=== PATIENT | male | born 1965 | race Caucasian/White ===

== ENCOUNTER 2020-04-19 09:43 | Day surgery (SDC) | payer OTHER, SELFPAY ==
[2020-04-02 15:32] VITALS: BMI 29.7
--- NOTE | 2020-04-03 08:26 | HP_ITS ---
Intake Vital Signs 04/02/20 Height 5 ft 7 in 04/02/20 Weight: 190 lb 04/02/20 BMI 29.7 04/02/20 BP 144/88 H 04/02/20 Blood Pressure Location Rt brachial 04/02/20 Position Sitting 04/02/20 Respiration 18 Intake Visit Reasons: HEMORRHOIDS, RECTAL BLEEDING Chief Complaint: hemorrhoids and bleeding Slot Floorman Required: No Is patient in pain?: Yes Allergies No Known Allergies Allergy (Unverified 04/02/20 15:32) Medications ascorbic acid (vitamin C) 500 mg capsule mg PO 04/02/20 [History Confirmed 04/02/20] aspirin 81 mg tablet,delayed release 81 mg PO DAILY 04/02/20 [History Confirmed 04/02/20] atenolol 50 mg tablet 50 mg PO DAILY 04/02/20 [History Confirmed 04/02/20] atorvastatin 10 mg tablet 10 mg PO DAILY 04/02/20 [History Confirmed 04/02/20] bupropion HCl 150 mg tablet,12 hr sustained-release 150 mg PO DAILY 04/02/20 [History Confirmed 04/02/20] cholecalciferol (vitamin D3) 125 mcg (5,000 unit) capsule 125 mcg PO DAILY 04/02/20 [History Confirmed 04/02/20] diphenoxylate-atropine 2.5 mg-0.025 mg tablet 1 tab PO DAILY 04/02/20 [History Confirmed 04/02/20] fluticasone propionate 50 mcg/actuation blister powder for inhalation 1 inh INHALATION BID 04/02/20 [History Confirmed 04/02/20] folic acid 1 mg tablet 1 mg PO DAILY 04/02/20 [History Confirmed 04/02/20] harrison root 325 mg-pyridoxine HCl (vitamin B6) 25 mg capsule cap PO 04/02/20 [History Confirmed 04/02/20] loratadine 10 mg capsule 10 mg PO DAILY 04/02/20 [History Confirmed 04/02/20] mecobalamin (vitamin B12) 1,000 mcg chewable tablet 1,000 mcg PO DAILY 04/02/20 [History Confirmed 04/02/20] metformin 1,000 mg tablet 1,000 mg PO BID 04/02/20 [History Confirmed 04/02/20] hlwupsmb-peb-xwwxq acid 300 mcg-lycopene 600 mcg-lutein 300 mcg tablet 1 tab PO DAILY 04/02/20 [History Confirmed 04/02/20] nitroglycerin 0.4 mg sublingual tablet 0.4 mg SUBLINGUAL Q5M PRN 04/02/20 [History Confirmed 04/02/20] omeprazole 40 mg capsule,delayed release 40 mg PO DAILY 04/02/20 [History Confirmed 04/02/20] quetiapine 100 mg tablet 100 mg PO DAILY 04/02/20 [History Confirmed 04/02/20] thiamine HCl (vitamin B1) 250 mg tablet 250 mg PO DAILY 04/02/20 [History Confirmed 04/02/20] trazodone 50 mg tablet 50 mg PO DAILY 04/02/20 [History Confirmed 04/02/20] [facility] Medical History Alcohol abuse (Acute) Anemia (Acute) Anxiety (Acute) Eastman's palsy (Acute) CAD (coronary artery disease) (Acute) Depression (Acute) Diabetes (Acute) Elevated liver enzymes (Acute) Heart attack (Acute) Hemorrhoids (Acute) Herpes zoster (Acute) Hypercholesterolemia with hyperglyceridemia (Acute) Insomnia (Acute) ANYA (obstructive sleep apnea) (Acute) Pancreatic cyst (Acute) Pancreatitis (Acute) Right ankle pain (Acute) Surgical History H/O right knee surgery (Acute) History of back surgery (Acute) Pancreatic cyst (Acute) S/P laparoscopic cholecystectomy (Acute) Status post left hip replacement (Acute) right ankle surgery (Acute) Social History (Updated 04/03/20 @ 08:[address] Jay Gr MD) Smoking Status: Never smoker Smokeless tobacco user: chewing tobacco alcohol intake: current HPI HPI HPI: AGA ADAN, is a 54 M who presents to the office today for HPI HPI Surgical H&P: Yes HPI: AGA ADAN, is a 54 M who presents to the office today for Bleeding hemorrhoids. The patient reports that he has been having bleeding hemorrhoids. Patient reports he has had a lot of bright red blood per rectum with no pain. Patient had a colonoscopy In 2016 at [place] in which a small polyp was noted. ROS General General: Yes fatigue; no weight change Musc Musculoskeletal: Yes back problems and arthritis Cardio Cardiovascular: Yes high blood pressure and heart attack; no murmur, pacemaker, heart disease, atrial fibrillation, heart stent, palpitations, shortness of breat with exertion or chest pain Psych Psychiatric: Yes depression and anxiety Resp Respiratory: No shortness of breath, No sleep apnea, No cough, No COPD, No asthma, No emphysema, No wheezing Gastro Gastrointestinal: Yes abdominal pain, No nausea or vomiting, No diarrhea, No constipation, Yes blood in stool, Yes acid reflux, Yes hemorrhoids, No ulcers, No gallbladder problem, No black,tarry stools Derick Hematologic: No blood thinners, Yes bleeding, Yes anemia Exam Const General: cooperative Orientation: alert, oriented x3 Resp Effort & Inspection: normal respiratory effort Auscultation: clear to auscultation bilaterally Cardio Rate: regular rate Rhythm: regular rhythm Heart Sounds: no murmurs GI Inspection: non-distended Palpation: soft, nontender Rectal Exam: hemorrhoids Assessment & Plan Problems 1. Grade III hemorrhoids K64.2 Plan The patient has internal and external hemorrhoids. The patient reports he is having soft bowel movements at least daily. These have not gone away with dietary changes. I recommend hemorrhoidectomy to stop the bleeding. He is having bright red blood per stool and he had a recent colonoscopy. I discussed hemorrhoidectomy in detail the patient as well as pain control and risks of the procedure. I discussed the risks of bleeding, infection, urinary retention, fecal incontinence. The patient understands the risks and is when to proceed. We discussed the current risks associated with COVID-19. While it is understood that there is a community spread of COVID-19, the risk of davis COVID-19 while at [facility] ([facility]) is very low; however, the risk cannot be completely mitigated because of the community spread of the disease. We discussed in detail the risk of exposure to and/or potential harm posed by the COVID-19 virus with having a surgery/procedure at this time versus the risk of delaying the surgery/procedure. It is not possible to know either the risk of delaying the surgery or procedure or chance of getting an infection with perfect accuracy, but a joint decision was made to proceed at this time with the scheduled surgery/procedure as indicated on the consent form. Patient was notified that we will need to comply with any screening or testing [facility] wishes to perform or that surgery may be delayed for any positive results. Jay Gr MD Pager: [facility] [address] [place] [address], [address] [place] [address] Office: Coding Level of Care Code Off vis,new,level 3 Diagnoses Grade III hemorrhoids K64.2 ??Hemorrhoid type: third degree 04/03/20 0826 <Electronically signed by Jay cortez MD> Date _ Jay Gr MD I have re-examined the patient. There are no clinical changes since date of exam.
[2020-04-08 14:00] VITALS: BMI 30.6
[2020-04-19] VITALS (11 sets, daily range): BP systolic 116–152; BP diastolic 55–92; PULSE 73–89; RESP 16–18; TEMP 36.4–36.8; O2SAT 95–100; BMI 30.1
[2020-04-19] MEDS: Lactated Ringers 1,000 ML 100 ML IV (10:34)
[2020-04-19 10:35] LABS: Bedside Glucose 126 mg/dL (70-110)
[2020-04-19] MEDS: Cefotetan 2 GM in 0.9% NS 100 ML IV (11:02)
[2020-04-19] MEDS: Bupivacaine Mpf 0.5% 30 ML VIAL (11:23)
[2020-04-19] MEDS: Lubricating Jelly 60 GM Tube 30 GM TOPICAL (11:24)
--- NOTE | 2020-04-19 11:30 | HEM_PTH ---
PATIENT: AGA ADAN LOC: [facility] [place] U#:[id number] AGE/SX: 54/M ROOM: RE04/19/[address]: Dr. Jay Gr MD : 1965 BED: DIS: 04/19/2020 SPEC #: [id number] RECD: 04/19/20 12:52 STATUS: THO MARIANGEL #: [id number] CASSIE: 04/19/20 11:[address]: Jay Gr DEPT: SURGICAL PATHOLOGY RECD BY: Gilberto Eason ENTERED: 04/19/20 13:08 SP TYPE: HEMORRHOID OTHR DR: Dr. Amanda Tena, Tissues: HEMORRHOIDS Procedures: Surgery Specimen Level III HEADER OPERATION: Hemorrhoidectomy PRE-OP DIAGNOSIS: Grade III hemorrhoids TISSUE SUBMITTED: Right column hemorrhoid MICROSCOPIC DIAGNOSIS Right column hemorrhoid, hemorrhoidectomy: Submucosal vascular ectasia and thrombosis consistent with hemorrhoid. AM:alem 04/22/20 MICROSCOPIC DESCRIPTION Slides are reviewed. GROSS DESCRIPTION Received in fixative is one container labeled with the patient's name and designated right column hemorrhoid. The specimen consists of a piece of hurd-pink mucosal tissue measuring 3 x 1 x 0.5 cm. Sections reveal congested cut surfaces. The entire specimen is submitted in one cassette. / SJ:alem 04/19/20 TC:5 [facility]: [id number]
[2020-04-19] MEDS: Dibucaine 30 GM Tube 1 APPLIC (11:39)
--- NOTE | 2020-04-19 12:15 | DCINST_ITS ---
Discharge Diet: No Restrictions Discharge Activity: Return to Normal Activity, May Not Drive - while you are taking narcotic pain medications. Do not drive, work with heavy equipment or sign legal documents for 24 hours after your surgery. Additional Activity Instructions:: Be aware that pain medications may cause nausea. You should typically eat light foods as you take your pain medications. Pain medications may also cause constipation, if you have difficulty with this please discuss with your doctor. Call your doctor if your incision/area has: Continuous Slow Oozing, Sudden Increased Bleeding, Increased Pain/ Swelling, Increased Redness, Foul Smelling Discharge, Swelling at the incision site Call your doctor if you observe: Fever of 101 or Higher Additional Dressing/Incision Instructions:: Leave the operative bandage on for 2 days. If a local anesthetic plug was placed in the anal area, try not to expel for 24-[address] dibucaine ointment on the perianal area as needed. Sitz baths twice daily and after bowel movements. Allergies/Adverse Reactions: Allergies No Known Allergies Allergy (Verified 04/17/20 10:52) Medications to take at Discharge ascorbic acid (vitamin C) 500 mg capsule 500 mg PO DAILY 04/02/20 aspirin 81 mg tablet,delayed release 81 mg PO DAILY 04/02/20 atenolol 50 mg tablet 50 mg PO DAILY 04/02/20 atorvastatin 10 mg tablet 10 mg PO DAILY 04/02/20 bupropion HCl 150 mg tablet,12 hr sustained-release 150 mg PO DAILY 04/02/20 cholecalciferol (vitamin D3) 125 mcg (5,000 unit) capsule 125 mcg PO BID 04/02/20 diphenoxylate-atropine 2.5 mg-0.025 mg tablet 1 tab PO PRN PRN 04/02/20 fluticasone propionate 50 mcg/actuation blister powder for inhalation 1 inh INHALATION BID PRN 04/02/20 folic acid 1 mg tablet 1 mg PO DAILY 04/02/20 harrison root 325 mg-pyridoxine HCl (vitamin B6) 25 mg capsule 3 cap PO DAILY 04/02/20 loratadine 10 mg capsule 10 mg PO DAILY 04/02/20 mecobalamin (vitamin B12) 1,000 mcg chewable tablet 4,000 mcg PO DAILY 04/02/20 metformin 1,000 mg tablet 1,000 mg PO BID 04/02/20 ldkzmolw-xpo-nqorq acid 300 mcg-lycopene 600 mcg-lutein 300 mcg tablet 1 tab PO DAILY 04/02/20 nitroglycerin 0.4 mg sublingual tablet 0.4 mg SUBLINGUAL Q5M PRN 04/02/20 omeprazole 40 mg capsule,delayed release 40 mg PO QHS 04/02/20 quetiapine 100 mg tablet 100 mg PO QHS 04/02/20 thiamine HCl (vitamin B1) 250 mg tablet 250 mg PO DAILY 04/02/20 Docusate Sodium [Colace] 100 mg PO BID 15 Days #30 cap 04/19/20 Docusate Sodium [Colace] 100 mg PO BID 15 Days #30 cap 04/19/20 Oxycodone HCl/Acetaminophen [Percocet 5-325 mg Tablet] 1 - 2 tab PO Q6H PRN PRN 7 Days #50 tab 04/19/20 Oxycodone HCl/Acetaminophen [Percocet 5-325 mg Tablet] 1 - 2 tab PO Q6H PRN PRN 7 Days #50 tablet 04/19/20 The following prescriptions were given: Docusate Sodium [Colace] 100 mg PO BID 15 Days #30 cap Transmission Status: Pending to [facility]/pharmacy #[id number] Docusate Sodium [Colace] 100 mg PO BID 15 Days #30 cap Transmission Status: Pending to [facility] Oxycodone HCl/Acetaminophen [Percocet 5-325 mg Tablet] 1 - 2 tab PO Q6H PRN PRN 7 Days #50 tab PRN Reason: Pain Score 4-10/10 Transmission Status: Pending to [facility]/pharmacy #[id number] Oxycodone HCl/Acetaminophen [Percocet 5-325 mg Tablet] 1 - 2 tab PO Q6H PRN PRN 7 Days #50 tablet PRN Reason: Pain Score 4-10/10 Transmission Status: Sent to [facility] Test Results: Test results from this visit will be discussed in further detail at your follow- up appointment, if applicable. Please Follow Up With: Jay Gr MD When: Please call to schedule 2 week follow up appointment. [phone]
--- NOTE | 2020-04-19 12:29 | PCM.OPRPT ---
Problem List (1) Bleeding hemorrhoids Status: Acute Report of Operation Date of Procedure: 04/19/20 Pre-Operative Diagnosis: Bleeding hemorrhoid Post-Operative Diagnosis: Same Surgery/Procedure Performed:: Hemorrhoidectomy, internal and external single column Specimen's removed: Right hemorrhoidal column Description of Procedure: Patient was brought back the operating room and general anesthesia was induced. The patient was placed in a prone jackknife position. The perirectal area was prepped and draped. A well-lubricated speculum was placed into the rectum and the right hemorrhoidal column appeared to be the source of the bleeding. It was very inflamed and enlarged with redness. Using harmonic the hemorrhoidal tissue was removed. A running 3-0 chromic suture was used from the inside to the outside to reapproximate the mucosa. There was still some bleeding and interrupted 3-0 Vicryl sutures were used to maintain hemostasis and reinforce the suture line. A rolled Gelfoam was covered with dibucaine cream placed into the rectal vault. Due to the extra stitches and the size of the right hemorrhoidal tissue removed I elected not to remove the left hemorrhoid for fear stricture. Patient was then rolled back to supine position and extubated and taken to PACU in stable condition. Grafts/Implants Used: Rolled Gelfoam in the rectal vault - Admit VTE Documentation VTE Mechan Device Prophylaxis: SCD's
[2020-04-19] MEDS: Acetaminophen 325 MG Tablet PO (13:55)
[2020-04-19] MEDS: oxyCODONE 5 MG Tablet PO (13:56)
== END 2020-04-19 17:51 | disposition home or self-care (01) ==
LOC: SDC 09:43 → AC 09:43
PROVIDERS: Anesthesiology; Referring Provider Surgery; Visit Provider Surgery
PROC: (CPT 46255; principal; 2020-04-19 11:15)
DX: K64.2 Third degree hemorrhoids (principal); K64.4 Residual hemorrhoidal skin tags; Z11.59 Encounter for screening for other viral diseases; I25.10 Atherosclerotic heart disease of native coronary artery without angina pectoris; I25.2 Old myocardial infarction; I10 Essential (primary) hypertension; E11.9 Type 2 diabetes mellitus without complications; E78.00 Pure hypercholesterolemia, unspecified; G47.33 Obstructive sleep apnea (adult) (pediatric); K21.9 Gastro-esophageal reflux disease without esophagitis; F32.9 Major depressive disorder, single episode, unspecified; F41.9 Anxiety disorder, unspecified; Z91.19 Patient's noncompliance with other medical treatment and regimen; Z79.82 Long term (current) use of aspirin; Z79.84 Long term (current) use of oral hypoglycemic drugs; Z79.899 Other long term (current) drug therapy; Z87.891 Personal history of nicotine dependence
CPT/HCPCS: 00902; 46255; 82962; 87635; 88304; C9803; J7120; J2405; U0003

== ENCOUNTER 2020-04-19 23:59 | Emergency (ER) | payer OTHER, SELFPAY ==
[2020-04-19 10:21] VITALS: BMI 30.1
[2020-04-20] VITALS: BP 161/97; PULSE 84; RESP 16; TEMP 36.2; O2SAT 100; BMI 30.4
--- NOTE | 2020-04-20 00:19 | ED.VIS.GEN ---
History of Present Illness Chief Complaint: Complaint Detail of Chief Complaint: urinary retention Informant: Patient Onset: Today Context: Gradual Onset Timing: Continuous Quality: unable to urinate Location: suprapubic, pressure Current Severity: Severe Maximum Severity: Severe Worsened by: nothing Relieved by: nothing Narrative: Patient had a hemorrhoidectomy today. Postoperatively, he was unable to urinate and needed to be straight cathed. He presents late tonight because of urinary retention and inability to urinate although he feels to need to severely. He denies any back pain, vomiting, fevers. He had no hematuria. He is on no anticoagulants. He is having postoperative perianal pain, he states he is experiencing nothing new or worsening there compared with earlier. He states over the 6 months prior or so, he has had a noticeable decrease in urinary stream. He has not had this evaluated by anyone yet. - Past Medical History (1) GERD (gastroesophageal reflux disease) Status: Chronic (2) HH (hiatus hernia) Status: Chronic (3) Hemorrhoids Status: Chronic (4) Iron deficiency anemia due to chronic blood loss Status: Chronic Past Medical History - Allergies and Home Meds Allergies/Adverse Reactions: Allergies No Known Allergies Allergy (Verified 04/20/20 00:02) Primary Care Physician: Amanda Tena DO [Primary Care Provider] - Smoking Status: Current every day smoker Review of Systems General: Denies: Chills, Fever, Sweats Eyes: Denies: Visual changes - bilaterally, Diplopia ENT: Denies: Rhinorrhea, Sore throat Cardiovascular: Denies: Chest pain, Palpitations Respiratory: Denies: Dyspnea, Cough, Dyspnea on exertion Gastrointestinal: Reports: Abdominal pain, Hematochezia - Mild with perianal pain postop hemorrhoidectomy. Denies: Nausea, Vomiting, Diarrhea, Melena Genitourinary: Reports: - - Acute urinary retention. See HPI.. Denies: Dysuria, Hematuria, Frequency Musculoskeletal: Denies: Back pain, Extremity Pain Skin: Denies: Rash, Wounds Neurological: Denies: Headache, Weakness, Numbness Psych: Reports: Anxiety. Denies: Suicidal thoughts Physical Exam Vital Signs/Narrative: Vital Signs Temp Pulse Resp BP Pulse Ox 04/20/20 00:00 97.1 F L 84 16 161/97 H 100 Inital Vital Signs reviewed: Yes General: Well nourished, Well developed, Acute Distress - Mild, uncomfortable due to urinary retention Head: Normocephalic, Atraumatic Eyes: Perrl, EOMI ENT: Moist mucous membranes, No rhinorrhea Neck: Supple, Nontender Respiratory: No distress Abdomen: Soft, Normal bowel sounds, Tender - Suprapubic only, - - Suprapubic distention. Negative for: Guarding, Rebound tenderness Back: Nontender, Normal Inspection. Negative for: CVA tenderness Extremities: Nontender, No edema Skin: Normal color, No rash Neurological: Alert, Oriented x3, Cranial nerves II-XII grossly intact, Normal Strength, Normal Sensation Psychological: Normal affect, Normal Mood Diagnostic/Tx/Re-eval - Medical Decision Making Patient clearly is having urinary retention, and given his pre-existing symptoms, probably has an enlarged prostate. We discussed that. He agrees he needs to follow-up about it. He is very apprehensive about getting a catheter. He would rather be temporarily catheterized and pretreated with Urojet which he accepted an offer for. Nursing want to do this, but he urinated some on his own, it was quite a bit, but out of concern for stress/overflow incontinence, I had nurses do a bedside bladder scan and it showed 200 cc. He then was unable to urinate this but he feels much better. I discussed the pros and cons of having a Campos and taking at home, versus having to come back for recurrent catheterizations, and the risk of infection if he is not able to empty his bladder, versus having a catheter which certainly there is a risk of that as well. He still does not want a repeat catheterization of any type right now, and prefers to go home with a prescription of Flomax which I offered. Advised he is welcome to return for worsening issues and he is comfortable following up with urology regardless. ED Disposition - Plan for ED Patient: Disposition: Home or Assisted Living Diagnosis: Acute urinary retention Instructions: ED Urinary Retention Male Prescriptions: Tamsulosin HCl [Flomax] 0.4 mg PO DAILY #14 cap Transmission Status: Pending to [facility] Referrals: Amanda Tena DO [Primary Care Provider] - Zaire Valladares MD [STAFF PHYSICIAN] - As Needed
--- NOTE | 2020-04-20 00:44 | ED.RN ---
PT REPORTS HE WAS ABLE TO URINATE IN THE TOILET PRIOR TO CATHETER ATTEMPT. PT REPORTS RELIEF OF BLADDER DISTENTION. DR. GILBERT INFORMED. BLADDER SCAN COMPLETE. PT IS RESTROOM ATTEMPTING TO URINATE AGAIN.
[2020-04-20] MEDS: Ibuprofen 600 MG Tablet PO (01:23)
== END 2020-04-20 01:42 | disposition home or self-care (01) ==
PROVIDERS: Emergency Provider Emergency Medicine
DX: R33.9 Retention of urine, unspecified (principal); K21.9 Gastro-esophageal reflux disease without esophagitis; D50.0 Iron deficiency anemia secondary to blood loss (chronic); F17.200 Nicotine dependence, unspecified, uncomplicated; Z98.890 Other specified postprocedural states
CPT/HCPCS: 99283

== ENCOUNTER → 2020-09-12 08:28 | Outpatient (CLI) | payer BC, SELFPAY ==
[2020-08-22 10:55] VITALS: BMI 30.5
--- NOTE | 2020-09-12 08:32 | CT_ITS ---
STUDY: CT ABDOMEN WITH CONTRAST REASON FOR EXAM: Male, 55 years old. Abdominal discomfort/pain, hx pancreatic cyst, pancreatitis, prior cholecystectomy, pancreatic cyst drained. No longer diabetic (improved A1C). RADIATION DOSAGE (If Supplied By Facility): CTDIvol = ( 12.53 ) mGy, DLP = ( 567.55 ) mGycm TECHNIQUE: Transaxial images were obtained post I.V. administration of Oral and amp; IV GASTROGRAFIN and amp; 100ML ISOVUE 300, and without oral contrast. Sagittal and coronal images were reconstructed. Individualized dose optimization techniques were used for this CT. COMPARISON: None. FINDINGS: The visualized lung bases are unremarkable. The visualized portions of the heart are within normal limits. There is decreased attenuation of the liver consistent with steatosis. There are surgical clips in the gallbladder fossa consistent with a prior cholecystectomy. There is mild splenomegaly. Normal pancreas. Normal bilateral adrenal glands. Normal right kidney. Normal left kidney. Normal visualized stomach. Normal small intestine. Normal colon. The appendix is visualized and appears normal. There is scattered atherosclerotic calcification of the abdominal aorta, without a demonstrated aneurysm. Normal inferior vena cava. There is borderline retroperitoneal lymphadenopathy with enlarged nodes no greater than 10mm in the short axis diameter. Normal abdominal wall. Normal osseous structures. CT/Abdomen WITH IV Contrast IMPRESSION: Mild degree of fatty infiltration of the liver. Electronically Signed: Alton Cortes MD at 11:58 EST , Service support ,
== END ==
LOC: CT 08:31
DX: R10.9 Unspecified abdominal pain (principal); K86.2 Cyst of pancreas
CPT/HCPCS: 74160; Q9967

== ENCOUNTER → 2020-09-23 07:20 | Outpatient (CLI) | payer BC, SELFPAY ==
[2020-08-22 10:55] VITALS: BMI 30.5
--- NOTE | 2020-09-23 07:39 | MRI_ITS ---
STUDY: MRI BRAIN WITH AND WITHOUT CONTRAST (ATTENTION INTERNAL AUDITORY CANALS - I.A.C.''s) REASON FOR EXAM: Male, 55 years old. BELLS PALSEY TECHNIQUE: Standardized multiplanar fat and water weighted pulse sequences were obtained. IV 18cc dotarem was administered for the contrast portion of the examination. COMPARISON: None. FINDINGS: Normal bilateral temporal bones. Normal bilateral internal auditory canals. There is no demonstrated intracanalicular or cisternal vestibular schwannoma (acoustic neuroma). There is no enhancement of the bilateral VIIth or VIIIth cranial nerves. Normal bilateral cochlea, vestibules and semicircular canals. Normal size of the ventricles and extra-axial spaces for the patient''s age. Normal white matter tracts of the supratentorial brain. Normal bilateral basal ganglia. Normal thalami. Normal flow voids within the major intracranial circulation suggesting patency by spin echo criteria. Normal venous enhancement. There is no enhancing intra-axial or extra-axial abnormality. There is no extra-axial fluid accumulation. Normal sella turcica, pituitary gland, infundibular stalk, optic chiasm and hypothalamus. Normal tectal plate and pineal gland. Normal midbrain, heather and medulla. Normal cerebellum. Normal basal cisterns MRI/Brain W/WO Contrast IMPRESSION: There is no demonstrated intracanalicular or cisternal vestibular schwannoma (acoustic neuroma). Electronically Signed: Jenn Reis MD at 13:15 EST Tel , Service support ,
== END ==
PROVIDERS: Referring Provider Otolaryngology; Visit Provider Otolaryngology
DX: G51.0 Bell's palsy (principal)
CPT/HCPCS: 70553; A9575

== ENCOUNTER → 2020-10-28 14:21 | Outpatient (CLI) | payer BC, SELFPAY ==
[2020-08-22 10:55] VITALS: BMI 30.5
== END ==
PROVIDERS: Referring Provider Otolaryngology; Visit Provider Otolaryngology
DX: Z20.822 Contact with and (suspected) exposure to COVID-19 (principal)
CPT/HCPCS: 87635; C9803; U0002

== ENCOUNTER → 2024-02-17 | Outpatient (CLI) | payer MEDICARE, SELFPAY ==
--- NOTE | 2024-02-17 08:00 | NM_ITS ---
CLINICAL: 78-year-old male with history of chronic nausea. SOLID PHASE 99m Tc SULFUR COLLOID GASTRIC EMPTYING STUDY COMPARISON: None available FINDINGS: The patient was administered 1.1 mCi of 99m Tc sulfur colloid mixed with egg and consumed per os. Image acquisitions in the anterior-posterior projections were obtained for 227 minutes. There is prompt visualization of the stomach. There is no gastroesophageal reflux identified. There is rapid-accelerated emptying of the gastric contents noted during 227 minutes of sequential imaging. The T ? raw data emptying was calculated to be 48.24 minutes, (Normal 65-110 minutes). NM/Gastric Emptying Study - 4 HR IMPRESSION: 1. There is accelerated solid phase gastric emptying compared to normal controls. (Jasiel et al, Gastroenterology 77: 75, 1979 Katy suarez al, Semin Nucl Med 12: 116, 1981). Electronically Signed: Mustapha Chilel DO at 22:59 EDT ,
== END | disposition home or self-care (01) ==
PROVIDERS: Referring Provider Internal Medicine Gastroenterology; Visit Provider Internal Medicine Gastroenterology
DX: R11.0 Nausea (principal); E11.9 Type 2 diabetes mellitus without complications
CPT/HCPCS: 78264; A9541

== ENCOUNTER → 2024-08-09 | Outpatient (CLI) | payer MEDICARE, SELFPAY ==
[2024-08-09 12:40] LABS: Hematocrit 42.2 % (40-54); Hemoglobin 14.5 g/dL (13.0-16.5); Mean Corp Hgb Conc 34.4 g/dL (32-36); Mean Corpuscular Hgb 32.3 pg (27.0-32.0); Mean Platelet Vol. 9.3 fl (6.2-12.0); Platelet Count 191 K/mm3 (150-450); RBC Distribution Width CV 12.8 % (11.6-14.6); RBC Distribution Width SD 44.1 fl (35.1-43.9); Red Blood Count 4.49 M/mm3 (4.6-6.2); White Blood Count 4.5 K/mm3 (4.4-11.0)
== END | disposition home or self-care (01) ==
LOC: MTLAB 09:58
PROVIDERS: Referring Provider Internal Medicine Gastroenterology; Visit Provider Internal Medicine Gastroenterology
DX: I10 Essential (primary) hypertension (principal)
CPT/HCPCS: 36415; 80053; 83690; 85027; 86140

== ENCOUNTER → 2024-08-14 | Outpatient (CLI) | payer MEDICARE, SELFPAY ==
--- NOTE | 2024-08-14 06:44 | US_ITS ---
STUDY: ABDOMINAL ULTRASOUND REASON FOR EXAM: Male, 59 years old. RUQ PAIN, CHRONIC PANCREATITIS TECHNIQUE: Transabdominal ultrasound was performed with real-time and static blandon scale imaging. TECHNICAL QUALITY: Adequate. COMPARISON: Comparison is made with prior CT scan the abdomen dated September 12, 2020. FINDINGS: Liver: The liver is enlarged and measures 19.9 cm. There is increased echogenicity consistent with fatty infiltration. The bile ducts are within normal limits. There is hepatic color flow. The direction of portal flow is hepatopetal. There is no demonstrated mass lesion. Gallbladder: The patient is status post cholecystectomy. Common Bile Duct (C.B.D.): The common bile duct measures 6 mm. Pancreas: Normal size of the head, body and tail of the pancreas. There is normal echogenicity of the pancreas. There is no demonstrated pancreatic mass or cyst. Spleen: There is splenomegaly. The spleen measures 12.2 cm x 5.6 cm x 5 cm. Right Kidney: Normal size of the right kidney. The right kidney measures 11.4 cm x 6 cm x 5.2 cm. Normal renal cortex. The right cortex measures 1.5 cm. There is no demonstrated renal mass or cyst. There is no right hydronephrosis. Left Kidney: Normal size of the left kidney. The left kidney measures 12.6 cm x 6.6 cm x 6.5 cm. Normal renal cortex. The left cortex measures 2.0 cm. There is no demonstrated renal mass or cyst. There is no left hydronephrosis. Aorta: Obscured by bowel gas. I.V.C.: The IVC is patent. There is no ascites. US/Abdomen Complete IMPRESSION: Hepatosplenomegaly. Fatty infiltration of the liver. Status post cholecystectomy. Electronically Signed: Alton Cortes MD at 14:12 EST ,
== END | disposition home or self-care (01) ==
PROVIDERS: Referring Provider Internal Medicine Gastroenterology; Visit Provider Internal Medicine Gastroenterology
DX: R10.11 Right upper quadrant pain (principal); K85.90 Acute pancreatitis without necrosis or infection, unspecified
CPT/HCPCS: 76700

== ENCOUNTER → 2025-02-20 | Outpatient (CLI) | payer MEDICARE, SELFPAY ==
--- NOTE | 2025-02-20 08:48 | US_ITS ---
PROCEDURE: ABD LIMITED W/ ELASTOGRAPHY REASON FOR EXAM: FATTY LIVER COMPARISON: None. TECHNIQUE: Right upper quadrant abdominal ultrasound. Theodore ElastQ Imaging shear wave elastography for non-invasive assessment of liver tissue stiffness. Theodore EPIQ Elite. FINDINGS: LIVER: Size: Enlarged (hepatomegaly) Length: 21.3 cm Echotexture: Diffusely echogenic suggesting fatty infiltration Contour: Normal Lesions: None identified Elastography: EQI Med: 9.4 kPa EQI Med Bobby: 1.8 m/s IQR/Med: 17 %* GALLBLADDER: Surgically absent. COMMON BILE DUCT: Dilated measuring up to 9.5 mm . PANCREAS: Normal Visualized portions of the right kidney are unremarkable. No right upper quadrant ascites. US/ABD Limited w/ Elastography IMPRESSION: MODERATE TO SEVERE HEPATIC FIBROSIS Hepatomegaly. Fatty infiltration of the liver. Reference Values: SRU <1.37 m/s (5.7kPa): No to mild fibrosis 1.37 m/s - 2.2 m/s: Moderate to severe fibrosis >2.2 m/s (15kPa): Significant fibrosis / cirrhosis METAVIR Score F2 or higher: 1.34 m/s (5.7kPa) F3 or higher: 1.55 m/s (7.3kPa) F4: 1.80 m/s (10kPa) * If the IQR/Med is >30%, the variance in the measurements is a large and the a ccuracy of the measurement may be in question. Reading Location: [id number]
== END | disposition home or self-care (01) ==
LOC: US 08:44
PROVIDERS: Referring Provider Internal Medicine Gastroenterology; Visit Provider Internal Medicine Gastroenterology
DX: K76.0 Fatty (change of) liver, not elsewhere classified (principal)
CPT/HCPCS: 76705; 76981

== ENCOUNTER → 2025-06-19 | Outpatient (CLI) | payer MEDICARE, SELFPAY ==
--- NOTE | 2025-06-19 07:27 | CT_ITS ---
PROCEDURE: BRAIN/HEAD WITHOUT CONTRAST 06/19/2025 REASON FOR EXAM: SYNCOPE TECHNIQUE: Procedure Code: CTBR Modality: CT Procedure: BRAIN/HEAD WITHOUT CONTRAST Coronal and Sagittal reconstruction series were provided. One or more dose reduction techniques were used (e.g., Automated exposure control, adjustment of the mA and/or kV according to patient size, use of iterative reconstruction technique. RADIATION DOSE SUMMARY: DLP: 846.73. MGycm COMPARISON: None available. FINDINGS: No acute hemorrhage. No acute transcortical infarct. Few scattered foci of periventricular and subcortical white matter hypodensities likely reflect chronic microvascular ischemic changes. No significant mass effect or brain herniation. The ventricular system and sulci/fissures are within normal limits of size and configuration for the patient's stated age. No extra-axial fluid collection. The basal cisterns are patent. The mastoid air cells are clear. Aerated mucosal thickening in the left maxillary sinus. The calvarium appears intact. CT/Brain/Head without Contrast IMPRESSION: No CT evidence of acute intracranial hemorrhage, transcortical infarct, or sign ificant mass effect. Chronic microvascular ischemic changes. Aerated mucosal thickening in the left maxillary sinus. Please exclude sinusit is. Reading Location: [id number]
--- OUTSIDE RECORDS SUMMARY | 2025-06-19 07:33 | XMS RPT_ITS | CCD ---
Author Organization [facility] Care Team Providers Care Lang Interpreter Name Role Phone Alba Tena Primary Care Provider [phone] MALLIKA CASILLAS, DR WILLIS Primary Care Physician Rohit Harris Unavailable [phone] MALLIKA CASILLAS, DR WILLIS Primary Care Physician Alba Tena DO Primary Care Provider [phone] MALLIKA CASILLAS, DR WILLIS Primary Care Unavailable MALLIKA DO, DR WILLIS Attending Unavailable MALLIKA DO, DR WILLIS Primary Care Unavailable ANTONIO SHETTY, DR DOCKERY Attending Unavailabl e MALLIKA DO, DR WILLIS Attending Unavailable MALLIKA DO, DR WILLIS Primary Care Unavailable MALLIKA DO, DR WILLIS Attending Unavailable MALLIKA DO, DR WILLIS Primary Care Unavailable MALLIKA DO, DR WILLIS Primary Care Unavailable MALLIKA DO, DR WILLIS Attending Unavailable MALLIKA DO, DR WILLIS Attending Unavailable MALLIKA DO, DR WILLIS Primary Care Unavailable Mallika DO, Dr. Alba Hernandez Primary Care Provider Dr. Sarkis Alvarez MD Attending Provider Antonio SHETTY, Dr. Dockery Referring Provider Alba Tena Attending Unavailable Alba Tena Referring Unavailable Alba Tena Primary Care Unavailable Sarkis Alvarez Attending Unavailable Sarkis Alvarez Referring Unavailable Alba Tena Primary Care Unavailable Sarkis Alvarez Attending Unavailable Sarkis Alvarze Referring Unavailable Alba Tena Primary Care Unavailable Sarkis Alvarez Attending Unavailable Sarkis Alvarez Referring Unavailable Alba Tena Primary Care Unavailable Allergies Allergy Classification Reported Allergen(s) Allergy Type Date of Onset Reaction(s) Facility (6 sources) Seasonal allergy; Translations: [SEASONAL] Propensity to adverse reactions to substance 12-24-2016 [place], [place] (1 source) Clindamycin/Linc omycin Propensity to adverse reactions to drug 03-08-2019 Anaphylaxis [place], [place] Medications Current Medications Medication Drug Class(es) Dates Sig (Normalized) Sig (Original) acetaminophen 325 mg oral tablet (2 sources) Start: 11-24-2020 650 mg, Oral, EVERY 4 HOURS PRN, Pain Mild (1-3), Pain Mild (1-3) or Fever greater than 100.5 F (38 C), Starting 11/24/20 at 0619 Maximum dose of acetaminophen is 4000 mg from all sources in 24 hours. Start: 03-09-2019 acetaminophen (TYLENOL) tablet 650 mg acetaminophen 325 mg / oxyCODONE hydrochloride 5 mg oral tablet (5 sources) Opioid Agonist Start: 09-28-2022 End: 10-01-2022 take 1 tablet by mouth every six hours as needed for pain acetaminophen-oxyCODONE 325 mg-5 mg oral tablet Dose = 1 tab(s), Oral, q6hr, PRN as needed for pain, X 3 day(s), # 12 tab(s), 0 Refill(s), Abdominal pain, 90.6 Start Date: 09/28/22 Stop Date: 10/01/22 Status: Ordered Start: 11-26-2020 End: 11-29-2020 take 1 tablet by mouth every six hours as needed for pain oxyCODONE-acetaminophen (PERCOCET) 5-325 MG per tablet Indications: 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 12 tablet 0 11/26/2020 11/29/2020 Active Start: 04-19-2020 End: 04-26-2020 Oxycodone-Acetaminophen 1 EA CH tablet Discontinued 1 - 2 {tbl} PO EVERY 6 HOURS NEEDED as needed for Pain Score 4-10/10 50 7 0 April 19, 2020 April 25, 2020 12:00am April 26, 2020 12:03am Hemorrhoids Unspecified hemorrhoids activated charcoal 260 mg oral capsule (1 source) Start: 08-17-2024 take 1 mg by mouth three times daily Activated Charcoal 260 mg oral capsule mg = cap(s), Oral, TID, 0 Refill(s) Start Date: 08/17/24 Status: Ordered Repeat number: 1 ALPRAZolam 0.5 mg oral tablet (1 source) Benzodiazepine Start: 06-14-2019 ALPRAZolam (XANAX) tablet 0.25 mg amylase / lipase / protease (1 source) Start: 10-02-2022 Creon-DR Oral, 0 Refill(s) Start Date: 10/02/22 Status: Ordered Repeat number: 1 aspirin 81 mg delayed release oral tablet (20 sources) Platelet Aggregation Inhibitor, Nonsteroidal Anti-inflammatory Drug Start: 07-31-2019 aspirin 81 mg oral delayed release tablet Dose : 81 mg = 1 tab(s), Oral, qDay, # 30 tab(s), 0 Refill(s) Start Date: 07/31/19 Status: Ordered Start: 05-31-2017 take 1 tablet by jay th once daily Aspirin 81 mg tablet,delayed release (DR/EC) Active 81 mg PO DAILY April 02, 2020 12:00am Start: 11-07-2016 take 81 mg by mouth once daily 81 mg, Oral, DAILY, First dose on 11/24/20 at 0900 atenolol 100 mg oral tablet (20 sources) beta-Adrenergic Keisha Start: 01-21-2024 atenol ol 100 mg oral tablet Dose : 100 mg = 1 tab(s), Oral, qDay, # 90 tab(s), 0 Refill(s) Start Date: 01/21/24 Status: Ordered Quantity: 90.0 Unit: tab(s) Repeat number: 1 Start: 10-22-2023 atenolol 50 mg oral tablet Dose : 50 mg = 1 tab(s), Oral, qDay, # 90 tab(s), 1 Refill(s), Pharmacy: [facility]/pharmacy #[id number], 170.2, cm, 10/22/23 11:20:00 EDT, Height, kg, 10/22/23 11:20:00 EDT, Dosing Weight Start Date: 10/22/23 Status: Ordered Start: 03-11-2023 atenolol 50 mg oral tablet Dose : 50 mg = 1 tab(s), Oral, qDay, # 90 tab(s), 1 Refill(s), Pharmacy: [facility], 170.2, cm, 03/11/23 9:16:00 EDT, Height, kg, 03/11/23 9:16:00 EDT, Dosing Weight Start Date: 03/11/23 Status: Ordered Start: 06-05-2021 atenolol 50 mg oral tablet Dose : 50 mg = 1 tab(s), Oral, qDay, # 90 tab(s), 1 Refill(s), [id number], 167.5, cm, 06/05/21 8:18:00 EST, Height, kg, 06/05/21 8:18:00 EST, Dosing Weight Start Date: 06/05/21 Status: Ordered Start: 04-04-2021 atenolol 50 mg oral tablet Dose : 50 mg = 1 tab(s), Oral, qDay, # 90 tab(s), 1 Refill(s), [id number], 170.2, cm, 01/16/21 10:10:00 EDT, Height, kg, 03/07/21 9:41:00 EDT, Dosing Weight Start Date: 04/04/21 Status: Ordered Start: 03-08-2019 take 50 mg by mouth twice willi y 50 mg, Oral, 2 TIMES DAILY, First dose on Wed03/08/19 at 2330 Start: 02-24-2016 take 1 tablet by [facility] once daily Atenolol 50 mg tablet Active 50 mg PO DAILY April 02, 2020 12:00am take 2 tablets by [facility] once daily atenolol (TENORMIN) 25 MG tablet Take 50 mg by mouth daily 0 Suspended take 2 tablets by [facility] twice daily atenolol (TENORMIN) 25 MG tablet Take 50 mg by mouth 2 times daily 0 Active atorvastatin 40 mg oral tablet (12 sources) HMG-CoA Reductase Inhibitor Start: 04-09-2022 atorvastatin 40 mg oral tablet Dose : 40 mg = 1 tab(s), Oral, Daily, # 90 tab(s), 1 Refill(s), Pharmacy: [facility]/pharmacy #[id number], 170.2, cm, 04/09/22 9:00:00 EDT, Height, kg, 04/09/22 9:00:00 EDT, Dosing Weight Start Date: 04/09/22 Status: Ordered Start: 10-09-2021 atorvastatin 4 0 mg oral tablet Dose : 40 mg = 1 tab(s), Oral, Daily, # 90 tab(s), 1 Refill(s), [id number], 167.5, cm, 06/05/21 8:18:00 EST, Height, kg, 10/09/21 9:24:00 EDT, Dosing Weight Start Date: 10/09/21 Status: Ordered Start: 06-05-2021 atorvastatin 4 0 mg oral tablet Dose : 40 mg = 1 tab(s), Oral, Daily, # 90 tab(s), 1 Refill(s), Pharmacy: [facility]/pharmacy #[id number], 167.5, cm, 06/05/21 8:18:00 EST, Height, kg, 06/05/21 8:18:00 EST, Dosing Weight Start Date: 06/05/21 Status: Ordered Start: 04-04-2021 atorvastatin 2 0 mg oral tablet Dose : 20 mg = 1 tab(s), Oral, qDay, # 90 tab(s), 1 Refill(s), [id number], 170.2, cm, 01/16/21 10:10:00 EDT, Height, kg, 03/07/21 9:41:00 EDT, Dosing Weight Start Date: 04/04/21 Status: Ordered Start: 04-02-2020 take 1 tablet by jay th once daily ATORVASTATIN CALCIUM 10 MG TABS 1 tablet by mouth once a day atorvastatin [id number] Manav Rosales LPN atropine sulfate 0.025 mg / diphenoxylate hydrochloride 2.5 mg oral tablet (6 sources) Anticholinergic, Cholinergic Muscarinic Antagonist, Antidiarrheal Start: 05-05-2017 Diphenoxylate-Atropine 2.5-0.025 mg tablet Active 1 {tbl} PO NEEDED as needed for Diarrhea April 02, 2020 12:00am Start: 08-31-2015 atropine-diphe noxylate 0.025 mg-2.5 mg oral tablet Dose : 5 mg = 2 tab(s), Oral, QID, PRN for loose stools, 0 Refill(s) Start Date: 08/31/15 Status: Ordered breath-actuated 120 actuat beclomethasone dipropionate 0.04 mg/actuat metered dose inhaler (10 sources) Corticosteroid Start: 06-05-2021 Qvar Redihaler 40 mcg/inh inhalation aerosol 40 mcg, Inhalation, BID, # 3 EA, 1 Refill(s), Pharmacy: [facility]/pharmacy #[id number], 167.5, cm, 06/05/21 8:18:00 EST, Height, kg, 06/05/21 8:18:00 EST, Dosing Weight Start Date: 06/05/21 Status: Ordered Start: 06-01-2018 QVAR REDIHALER 40 MCG/ACT AERB puff as directed single dose as directed beclomethasone dipropionate [id number] Manav Rosales LPN take 2 puff(s) by in halation twice daily beclomethasone (QVAR) 40 MCG/ACT inhaler Inhale 2 puffs into the lungs 2 times daily 0 Suspended benztropine mesylate 0.5 mg oral tablet (4 sources) Anticholinergic, Antihistamine Start: 01-02-2022 benztropine 0.5 mg oral tablet Dose : 0.5 mg = 1 tab(s), Oral, qHS, # 30 tab(s), 0 Refill(s) Start Date: 01/02/22 Status: Ordered 24 hr buPROPion hydrochloride 300 mg extended release oral tablet (20 sources) Aminoketone Start: 08-17-2024 take 1 tablet by mouth every hour, then take 1 tablet by mouth once daily buPROPion 300 mg/24 hours (XL) oral tablet, extended release Dose : 300 mg = 1 tab(s), Oral, qDay, # 90 tab(s), 1 Refill(s), Pharmacy: [facility], 170.2, cm, 08/17/24 8:51:00 EST, Height, kg, 08/17/24 8:51:00 EST, Dosing Weight Start Date: 08/17/24 Status: Ordered Quantity: 90.0 Unit: tab(s) Repeat number: 2 Start: 06-05-2021 take 1 tablet by jay th every hour, then take 1 tablet by mouth once daily buPROPion 300 mg/24 hours (XL) oral tablet, extended release Dose : 300 mg = 1 tab(s), Oral, qDay, # 30 tab(s), 0 Refill(s) Start Date: 06/05/21 Status: Ordered Start: 03-25-2021 take 1 tablet by jay th every hour, then take 2 tablets by mouth every twenty-four hours buPROPion 150 mg/24 hours (XL) oral tablet, extended release Dose : 300 mg = 2 tab(s), Oral, q24h, # 180 tab(s), 1 Refill(s), Pharmacy: [facility]/pharmacy #[id number], 170.2, cm, 01/16/21 10:10:00 EDT, Height, kg, 03/07/21 9:41:00 EDT, Dosing Weight Start Date: 03/25/21 Status: Ordered Start: 03-09-2019 End: 06-12-2019 take 100 mg by mouth once daily 100 mg, Oral, DAILY, F irst dose on Kristy 03/09/19 at 0900 Start: 06-01-2018 take 1 tablet by mouth once da allison Bupropion Hcl (Wellbutrin Sr) 150 mg tablet sustained-release 12 hr Active 150 mg PO DAILY April 02, 2020 12:00am busPIRone hydrochloride 15 m g oral tablet (13 sources) Start: 06-05-2021 busPIRone 15 m g oral tablet Dose : 15 mg = 1 tab(s), Oral, TID, 0 Refill(s) Start Date: 06/05/21 Status: Ordered Start: 03-07-2021 busPIRone 10 m g oral tablet Dose : 10 mg = 1 tab(s), Oral, Daily, TAKE 1 TABLET BY MOUTH TWICE A DAY Start Date: 03/07/21 Status: Ordered buspar 15mg 15mg 1 tablet as directed twice a day buspar 15mg 15mg Elizabeth Darian AT Calcium (5 sources) Phosphate Binder, Calcium Start: 11-28-2020 take 1 mg by mouth once daily calcium (as carbonate) 600 mg oral tablet mg = tab(s), Oral, qDay, 0 Refill(s) Start Date: 11/28/20 Status: Ordered calcium carbonate 1500 mg oral tablet (10 sources) Start: 11-28-2020 take 1 mg by mouth once daily calcium (as carbonate) 600 mg oral tablet mg = tab(s), Oral, qDay, 0 Refill(s) Start Date: 11/28/20 Status: Ordered Start: 06-13-2019 take 1 tablet by jay th once daily 500 mg (1 tablet), Oral, DAILY, First dose on Wed06/13/19 at 1545 take 1 tablet by jay th once daily calcium carbonate 600 MG TABS tablet Take 1 tablet by mouth daily 0 Suspended calcium chloride 0.0014 meq/ ml / potassium chloride 0.004 meq/ml / sodium chloride 0.103 meq/ml / sodium lactate 0.028 meq/ml injectable solution (3 sources) Start: 11-24-2020 Intravenous, a t 150 mL/hr, CONTINUOUS, Starting 11/24/20 at 1845 Start: 11-24-2020 End: 11-24-2020 lactated ringers bolus Start: 06-13-2019 lactated ringe rs infusion cetirizine hydrochloride 5 mg oral tablet (1 source) Histamine-1 Receptor Antagonist Start: 06-13-2019 take 5 mg by mouth once daily 5 mg, Oral, DAILY, First dose on Wed06/13/19 at 1545 Substituted for Loratadine (CLARITIN). chlorhexidine gluconate 1.2 mg/ml mouthwash (8 sources) Start: 01-16-2021 chlorhexidine 0.12% oral rinse liquid 0.018 gram(s) Dose = 15 mL, Oral, BID, # 1 EA, 0 Refill(s), Pharmacy: [facility]/pharmacy #[id number], 170.2, cm, 01/16/21 10:10:00 EDT, Height, kg, 01/16/21 10:10:00 EDT, Dosing Weight Start Date: 01/16/21 Status: Ordered Start: 06-13-2019 take 15 mL by mouth twice daily 15 mL, Mouth/Throat, 2 TIMES DAILY, First dose on Wed06/13/19 at 2100 Rinse and spit. Do not swallow. chlorhexidine 0.12% oral rinse liquid (5 sources) Start: 01-16-2021 chlorhexidine 0.12% oral rinse liquid 0.018 gram(s) Dose = 15 mL, Oral, BID, # 1 EA, 0 Refill(s), [id number], 170.2, cm, 01/16/21 10:10:00 EDT, Height, kg, 01/16/21 10:10:00 EDT, Dosing Weight Start Date: 01/16/21 Status: Ordered cholecalciferol 1.25 mg oral capsule (13 sources) Vitamin D Start: 07-31-2021 D3-50 (50,000 units) oral capsule Dose : 50,000 International_Unit = 1 cap(s), Oral, qWeek, # 12 cap(s), 0 Refill(s), Pharmacy: [facility]/pharmacy #[id number], 167.5, cm, 06/05/21 8:18:00 EST, Height, kg, 06/05/21 8:18:00 EST, Dosing Weight Start Date: 07/31/21 Status: Ordered Start: 05-09-2021 D3-50 (50,000 units) oral capsule Dose : 50,000 International_Unit = 1 cap(s), Oral, qWeek, # 12 cap(s), 0 Refill(s), Pharmacy: [facility]acy #[id number], 170.2, cm, 01/16/21 10:10:00 EDT, Height, kg, 03/07/21 9:41:00 EDT, Dosing Weight Start Date: 05/09/21 Status: Ordered Start: 04-02-2020 take 1 capsule by [facility] every week Cholecalciferol (Vitamin D3) 125 mcg (5,000 unit) capsule Active 43235 U PO EVERY WEEK April 02, 2020 12:00am Start: 06-13-2019 take 5000 [IU] by [facility] every week 5,000 Units, Oral, WEEKLY, First dose on Wed06/13/19 at 1545 Start: 05-22-2017 take 1 capsule by [facility] every week Cholecalciferol (VITAMIN D3) 11086 units CAPS Take 1 capsule by mouth once a week 1 capsule 0 05/22/2017 Suspended Start: 05-05-2017 take 1 tablet by [facility] twice daily VITAMIN D3 25 MCG (1000 UT) TABS 1 tablet by mouth twice a day cholecalciferol (vitamin d3) [id number] Manav Rosales LPN colestipol hydrochloride 1000 mg oral tablet (3 sources) Bile Acid Sequestrant Start: 10-02-2022 colestip ol 1 g oral tablet Dose : 2 gram(s) = 2 tab(s), Oral, TID, # 120 tab(s), 0 Refill(s) Start Date: 10/02/22 Status: Ordered Quantity: 120.0 Unit: tab(s) Repeat number: 1 Reginaldo (2 sources) Start: 10-02-2022 Reginaldo Oral, 0 Refill(s) Start Date: 10/02/22 Status: Ordered D3-50 (50,000 units) oral capsule (4 sources) Start: 07-31-2021 D3-50 (50,000 units) oral capsule Dose : 50,000 International_Unit = 1 cap(s), Oral, qWeek, # 12 cap(s), 0 Refill(s), Pharmacy: [facility]/pharmacy #[id number], 167.5, cm, 06/05/21 8:18:00 EST, Height, kg, 06/05/21 8:18:00 EST, Dosing Weight Start Date: 07/31/21 Status: Ordered docusate sodium 100 mg oral capsule (14 sources) Start: 06-27-2020 Colace 100 mg oral capsule Dose : 100 mg = 1 cap(s), Oral, BID, PRN as needed for constipation, # 60 cap(s), 1 Refill(s), Pharmacy: [facility]/pharmacy #[id number], 169, cm, 05/28/20 9:34:00 EST, Height, kg, 05/28/20 9:34:00 EST, Dosing Weight Start Date: 06/27/20 Status: Ordered Start: 04-19-2020 End: 05-04-2020 take 1 capsule by mouth twice daily Docusate Sodium 100 MG capsule Discontinued 100 mg PO TWICE A DAY 30 15 0 April 19, 2020 12:00am May 03, 2020 12:00am May 04, 2020 12:02am Start: 02-20-2020 End: 03-21-2020 take 1 capsule by mouth twice daily docusate sodium (COLACE) 100 MG capsule Take 1 capsule by mouth 2 times daily 60 capsule 0 02/20/2020 03/21/2020 Active 0.4 ml enoxaparin sodium 100 mg/ml prefilled syringe (2 sources) Low Molecular Weight Heparin Start: 11-24-2020 inject 40 mg by subcutaneous injection once daily 40 mg, Subcutaneous, DAILY, First dose on 11/24/20 at 0900 Start: 06-13-2019 enoxaparin (LO VENOX) injection 40 mg fenofibrate 160 mg oral tablet (1 source) Peroxisome Proliferator Receptor alpha Agonist Start: 11-25-2020 fenofibrate (TRIGLIDE) tablet 160 mg ferrous sulfate 325 mg oral tablet (15 sources) Start: 03-11-2023 ferrous sulfat e 325 mg (65 mg elemental iron) oral tablet Dose : 325 mg = 1 tab(s), Oral, BID, # 90 tab(s), 1 Refill(s), Pharmacy: [facility], 170.2, cm, 03/11/23 9:16:00 EDT, Height, kg, 03/11/23 9:16:00 EDT, Dosing Weight Start Date: 03/11/23 Status: Ordered Start: 07-30-2022 ferrous sulfat e 325 mg (65 mg elemental iron) oral tablet Dose : 325 mg = 1 tab(s), Oral, BID, # 90 tab(s), 1 Refill(s), Pharmacy: [facility], 170.2, cm, 07/30/22 8:17:00 EST, Height, kg, 07/30/22 8:17:00 EST, Dosing Weight Start Date: 07/30/22 Status: Ordered Start: 04-01-2022 ferrous sulfat e 325 mg (65 mg elemental iron) oral tablet Dose : 325 mg = 1 tab(s), Oral, BID, # 90 tab(s), 1 Refill(s), Pharmacy: [facility] #[id number], 167.5, cm, 06/05/21 8:18:00 EST, Height, kg, 01/02/22 9:10:00 EDT, Dosing Weight Start Date: 04/01/22 Status: Ordered Start: 06-05-2021 ferrous sulfat e 325 mg (65 mg elemental iron) oral tablet Dose : 325 mg = 1 tab(s), Oral, BID, # 90 tab(s), 1 Refill(s), Pharmacy: [facility] #[id number], 167.5, cm, 06/05/21 8:18:00 EST, Height, kg, 06/05/21 8:18:00 EST, Dosing Weight Start Date: 06/05/21 Status: Ordered Start: 04-04-2021 ferrous sulfat e 325 mg (65 mg elemental iron) oral tablet Dose : 325 mg = 1 tab(s), Oral, qDay, # 90 tab(s), 1 Refill(s), Pharmacy: [facility] #[id number], 170.2, cm, 01/16/21 10:10:00 EDT, Height, kg, 03/07/21 9:41:00 EDT, Dosing Weight Start Date: 04/04/21 Status: Ordered Start: 02-20-2020 take 325 mg by mouth twice daily 325 mg, Oral, 2 TIMES DAILY, First dose on 11/24/20 at 0900 120 actuat fluticasone propionate 0.044 mg/actuat metered dose inhaler (20 sources) Corticosteroid Start: 08-17-2024 take 2 puff(s) by inhalation twice daily Flovent HFA 44 mcg/inh inhalation aerosol 2 puff(s), Inhalation, BID, # 3 EA, 1 Refill(s), Pharmacy: [facility], 170.2, cm, 08/17/24 8:51:00 EST, Height, kg, 08/17/24 8:51:00 EST, Dosing Weight Start Date: 08/17/24 Status: Ordered Quantity: 3.0 Unit: EA Repeat number: 2 Start: 08-17-2024 fluticasone pr oprionate NASAL 50 mcg/ spray See Instructions, 1 SPRAY SPRAY DAILY, # 3 EA, 1 Refill(s), Pharmacy: [facility], 170.2, cm, 08/17/24 8:51:00 EST, Height, kg, 08/17/24 8:51:00 EST, Dosing Weight Start Date: 08/17/24 Status: Ordered Quantity: 3.0 Unit: EA Repeat number: 2 Start: 03-11-2023 take 2 puff(s) by in halation twice daily Flovent HFA 44 mcg/inh inhalation aerosol 2 puff(s), Inhalation, BID, # 3 EA, 1 Refill(s), Pharmacy: [facility], 170.2, cm, 03/11/23 9:16:00 EDT, Height, kg, 03/11/23 9:16:00 EDT, Dosing Weight Start Date: 03/11/23 Status: Ordered Start: 03-11-2023 fluticasone pr oprionate NASAL 50 mcg/ spray See Instructions, 1 SPRAY SPRAY DAILY, # 3 EA, 1 Refill(s), Pharmacy: [facility], 170.2, cm, 03/11/23 9:16:00 EDT, Height, kg, 03/11/23 9:16:00 EDT, Dosing Weight Start Date: 03/11/23 Status: Ordered Start: 04-10-2022 take 2 puff(s) by in halation twice daily Flovent HFA 44 mcg/inh inhalation aerosol 2 puff(s), Inhalation, BID, # 3 EA, 1 Refill(s), [id number], 170.2, cm, 04/09/22 9:00:00 EDT, Height Start Date: 04/10/22 Status: Ordered Start: 06-05-2021 fluticasone pr oprionate NASAL 50 mcg/ spray See Instructions, 1 SPRAY SPRAY DAILY, # 3 EA, 1 Refill(s), Pharmacy: [facility] #[id number], 167.5, cm, 06/05/21 8:18:00 EST, Height, kg, 06/05/21 8:18:00 EST, Dosing Weight Start Date: 06/05/21 Status: Ordered Start: 11-24-2020 fluticasone (F LOVENT HFA) 110 MCG/ACT inhaler 1 puff Start: 04-02-2020 Fluticasone Pr opionate 50 mcg/actuation blister with device Active 1 NMA INHALATION TWICE A DAY as needed for Sob &/Or Wheezing April 02, 2020 12:00am Start: 06-13-2019 take 1 puff(s) by in halation twice daily 1 puff, Inhalation, 2 TIMES DAILY, First dose on Wed06/13/19 at 2000 Substituted for Beclomethasone (QVAR) inhaler. Start: 06-13-2019 take 1 spray(s) nasa l route once daily 1 spray, Each Nostril, DAILY, First dose on Wed06/13/19 at 1545 Start: 03-08-2019 take 2 puff(s) by in halation twice daily 2 puff, Inhalation, 2 TIMES DAILY, First dose on Wed03/08/19 at 2330 Substituted for Beclomethasone (QVAR) inhaler. take 1 spray(s) nasa l route once daily fluticasone (FLONASE) 50 MCG/ACT nasal spray 1 spray by Each Nostril route daily 0 Suspended fluticasone proprionate NASA L 50 mcg/ spray (5 sources) Start: 06-05-2021 fluticasone pr oprionate NASAL 50 mcg/ spray See Instructions, 1 SPRAY SPRAY DAILY, # 3 EA, 1 Refill(s), Pharmacy: [facility] #[id number], 167.5, cm, 06/05/21 8:18:00 EST, Height, kg, 06/05/21 8:18:00 EST, Dosing Weight Start Date: 06/05/21 Status: Ordered Start: 03-29-2020 fluticasone pr oprionate NASAL 50 mcg/ spray See Instructions, 1 SPRAY SPRAY DAILY, # 16 mL, 5 Refill(s), Pharmacy: [facility] #[id number], 169, cm, 03/29/20 9:32:00 EDT, Height, kg, 03/29/20 9:32:00 EDT, Dosing Weight Start Date: 03/29/20 Status: Ordered folic acid 1 mg oral tablet (20 sources) Start: 10-02-2022 take 1 tablet by mouth once daily folic acid 1 mg oral tablet See Instructions, TAKE 1 TABLET BY MOUTH EVERY DAY, # 90 tab(s), 2 Refill(s), Pharmacy: [facility], 170.2, cm, 07/30/22 8:17:00 EST, Height, kg, 10/02/22 11:17:00 EST, Dosing Weight Start Date: 10/02/22 Status: Ordered Start: 04-26-2018 take 1 tablet by jay th once daily folic acid 1 mg oral tablet See Instructions, TAKE 1 TABLET BY MOUTH EVERY DAY, # 90 tab(s), 2 Refill(s), Pharmacy: [facility], 170.2, cm, 07/30/22 8:17:00 EST, Height, kg, 07/30/22 8:17:00 EST, Dosing Weight Start Date: 07/30/22 Status: Ordered gabapentin 300 mg oral capsule (11 sources) Anti-epileptic Agent Start: 08-17-2024 End: 02-13-2025 gabapentin 300 mg oral capsule Dose : 300 mg = 1 cap(s), Oral, TID, # 270 cap(s), 1 Refill(s), Pharmacy: [facility], Paresthesias, 170.2, cm, 08/17/24 8:51:00 EST, Height, 91.2, kg, 08/17/24 8:51:00 EST, Dosing Weight Start Date: 08/17/24 Stop Date: 02/13/25 Status: Ordered Quantity: 270.0 Unit: cap(s) Repeat number: 2 Indication: Paresthesia of skin Start: 06-24-2023 End: 12-21-2023 gabapentin 300 mg oral capsu le Dose : 300 mg = 1 cap(s), Oral, TID, # 270 cap(s), 1 Refill(s), Pharmacy: [facility], Paresthesias, 170.2, cm, 03/11/23 9:16:00 EDT, Height, 88.8, kg, 03/11/23 9:16:00 EDT, Dosing Weight Start Date: 06/24/23 Stop Date: 12/21/23 Status: Ordered Start: 07-30-2022 End: 01-26-2023 gabapentin 300 mg oral capsu le Dose : 300 mg = 1 cap(s), Oral, TID, # 270 cap(s), 1 Refill(s), Pharmacy: [facility], Paresthesias, 170.2, cm, 07/30/22 8:17:00 EST, Height, 90.6, kg, 07/30/22 8:17:00 EST, Dosing Weight Start Date: 07/30/22 Stop Date: 01/26/23 Status: Ordered Start: 06-05-2021 End: 12-02-2021 gabapentin 300 mg oral capsu le Dose : 300 mg = 1 cap(s), Oral, TID, # 270 cap(s), 1 Refill(s), Pharmacy: [facility] #[id number], Paresthesias, 167.5, cm, 06/05/21 8:18:00 EST, Height, 93.3, kg, 06/05/21 8:18:00 EST, Dosing Weight Start Date: 06/05/21 Stop Date: 12/02/21 Status: Ordered take 1 capsule by mo ut twice daily GABAPENTIN 100 MG CAPS 1 capsule by mouth twice a day gabapentin [id number] Elizabeth Darian AT [facility] (10 sources) Start: 07-31-2019 Joan Root or al capsule 0 Refill(s) Start Date: 07/31/19 Status: Ordered Start: 05-31-2017 take 3 capsules by m out once daily JOAN ROOT 550 MG CAPS 3 capsule by mouth once a day joan (zingiber officinalis) [id number] Manav Rosales LPN Joan Root-Pyridoxine Hcl(B6) 325-25 mg capsule (1 source) Start: 04-02-2020 Joan Root-Pyridoxine Hcl(B6) 325-25 mg capsule Active 3 NMA PO DAILY April 02, 2020 12:00am glucagon (rdna) 1 mg injection (3 sources) Antihypoglycemic Agent Start: 11-24-2020 take 1 mL intravenously every hour 1 mg, Intramuscular, PRN, Low blood sugar, Blood glucose less than 70 mg/dL and patient NOT ALERT or NPO and does not have IV access., Starting 11/24/20 at 0619 After administration, attempt intravenous access and start D5W at 100 mL/hr. Repeat blood glucose in 15 minutes x2 and notify provider. Start: 06-13-2019 glucagon (rDNA ) injection 1 mg Start: 03-08-2019 take 1 mL intravenou s route every hour 1 mg, Intramuscular, PRN, Low blood sugar, Blood glucose less than 70 mg/dL and patient NOT ALERT or NPO and does not have IV access., Starting 03/08/19 at 2305 After administration, attempt intravenous access and start D5W at 100 mL/hr. Repeat blood glucose in 15 minutes x2 and notify provider. 150 ml glucose 50 mg/ml injection (9 sources) Start: 11-24-2020 15 g, Oral, LA N, Low blood sugar, Starting 11/24/20 at 0619 If blood glucose less than 50 mg/dL and patient ALERT and TOLERATING PO, give 2 tubes glucose gel. If blood glucose less than 70 mg/dL and patient ALERT and TOLERATING PO, give 1 tube glucose gel. Repeat blood glucose in 15 minutes. If blood glucose is less than 70 mg/dL, repeat treatment and recheck blood glucose in 15 minutes x2 and notify provider. Start: 11-24-2020 12.5 g, Intrav enous, PRN, Low blood sugar, Blood glucose less than 70 mg/dL and patient NOT ALERT or NPO., Starting [place] 11/24/20 at 0619 If patient does not respond within 5 minutes, repeat dose x1. Start D5W at 100 mL/hour until ordering provider can be reached. Repeat blood glucose in 15 minutes. If blood glucose is less than 70 mg/dL, repeat treatment and recheck blood glucose in 15 minutes x2. If using Glucostabilizer, dose as instructed per system. Start: 11-24-2020 100 mL/hr, Int ravenous, at 100 mL/hr, PRN, Low blood sugar, Starting [place] 11/24/20 at 0619 Start infusion following administration of dextrose 50% or glucagon. Start: 06-13-2019 glucose (GLUTO SE) 40 % oral gel 15 g Start: 06-13-2019 dextrose 50 % IV solution Start: 06-13-2019 dextrose 5 % s olution Start: 03-08-2019 15 g, Oral, LA N, Low blood sugar, Starting Wed03/08/19 at 2305 If blood glucose less than 50 mg/dL and patient ALERT and TOLERATING PO, give 2 tubes glucose gel. If blood glucose less than 70 mg/dL and patient ALERT and TOLERATING PO, give 1 tube glucose gel. Repeat blood glucose in 15 minutes. If blood glucose is less than 70 mg/dL, repeat treatment and recheck blood glucose in 15 minutes x2 and notify provider. Start: 03-08-2019 12.5 g, Intrav enous, PRN, Low blood sugar, Blood glucose less than 70 mg/dL and patient NOT ALERT or NPO., Starting Wed03/08/19 at 2305 If patient does not respond within 5 minutes, repeat dose x1. Start D5W at 100 mL/hour until ordering provider can be reached. Repeat blood glucose in 15 minutes. If blood glucose is less than 70 mg/dL, repeat treatment and recheck blood glucose in 15 minutes x2. If using Glucostabilizer, dose as instructed per system. Start: 03-08-2019 100 mL/hr, Int ravenous, at 100 mL/hr, PRN, Low blood sugar, Starting 03/08/19 at 2305 Start infusion following administration of dextrose 50% or glucagon. HYDROmorphone (DILAUDID) injection 0.5 mg (1 source) Start: 06-15-2019 HYDROmorphone (DILAUDID) injection 0.5 mg insulin lispro 100 unt/ml injectable solution (6 sources) Insulin Analog Start: 11-24-2020 0-3 Units, Sub cutaneous, NIGHTLY, First dose on 11/24/20 at 2100 If continuous tube feedings/TPN/NPO, give correction dose based on result, no reduction in dose. If eating or bolus tube feeding: Low Dose Bedtime Correction Algorithm Glucose: Dose: 70-139 &n bsp; &nb sp; &nbs p; No Insulin 140-249 1 Unit 250-349 2 Units 350 and above 3 Units Start: 11-24-2020 0-6 Units, Sub cutaneous, 3 TIMES DAILY WITH MEALS, First dose on 11/24/20 at 0800 Low Dose Correction Algorithm Glucose: Dose: 70-139 No Insulin 140-199 1 Unit 200-249 2 Units 250-299 3 Units 300-349 4 Units 350-399 5 Units 400 and above 6 Units Start: 06-13-2019 insulin lispro (HUMALOG) injection vial 0-3 Units Start: 03-09-2019 0-6 Units, Sub cutaneous, 3 TIMES DAILY WITH MEALS, First dose on Kristy 03/09/19 at 0800 Low Dose Correction Algorithm Glucose: Dose: 70-139 No Insulin 140-199 1 Unit 200-249 2 Units 250-299 3 Units 300-349 4 Units 350-399 5 Units 400 and above 6 Units Start: 03-08-2019 0-3 Units, Sub cutaneous, NIGHTLY, First dose on Wed03/08/19 at 2330 If continuous tube feedings/TPN/NPO, give correction dose based on result, no reduction in dose. If eating or bolus tube feeding: Low Dose Bedtime Correction Algorithm Glucose: Dose: 70-139 No Insulin 140-249 1 Unit 250-349 2 Units 350 and above 3 Units Iron (1 source) Start: 08-17-2024 iron (as bisglycinate) 28 mg oral capsule Dose : 28 mg = 1 cap(s), Oral, qDay, with meals, # 90 EA, 0 Refill(s) Start Date: 08/17/24 Status: Ordered Quantity: 90.0 Unit: EA Repeat number: 1 1 ml ketorolac tromethamine 30 mg/ml cartridge (2 sources) Nonsteroidal Anti-inflammatory Drug, Cyclooxygenase Inhibitor Start: 11-24-2020 End: 11-29-2020 ketorolac (TORADOL) injection 30 mg Start: 03-09-2019 End: 03-13-2019 ketorolac (TORADOL) injectio n 30 mg lamoTRIgine 25 mg oral tablet (1 source) Mood Stabilizer, Anti-epileptic Agent Start: 03-11-2023 lamoTRIgine 25 mg oral tablet Dose : 50 mg = 2 tab(s), Oral, qDay, # 180 tab(s), 0 Refill(s) Start Date: 03/11/23 Status: Ordered latanoprost 0.05 mg/ml ophthalmic solution (3 sources) Prostaglandin Analog Start: 03-11-2023 take 0.5 [IU] into the eye(s) once daily at bedtime latanoprost 0.005% ophthalmic solution Dose = 1 drop(s), Eyes, both, qHS, # 2.5 mL, 0 Refill(s) Start Date: 03/11/23 Status: Ordered Quantity: 2.5 Unit: mL Repeat number: 1 Start: 03-11-2023 take 1 dose into the eye(s) once daily at bedtime latanoprost 0.005% ophthalmic solution Dose = 1 drop(s), Eyes, both, qHS, # 2.5 mL, 0 Refill(s) Start Date: 03/11/23 Status: Ordered loratadine 10 mg oral capsule (15 sources) Start: 04-02-2020 take 1 capsule by mouth once daily Loratadine 10 mg capsule Active 10 mg PO DAILY April 02, 2020 12:00am Start: 06-01-2018 End: 12-02-2021 loratadine 10 mg oral tablet Dose : 10 mg = 1 tab(s), Oral, qDay, # 90 tab(s), 1 Refill(s), [id number], 167.5, cm, 06/05/21 8:18:00 EST, Height, kg, 06/05/21 8:18:00 EST, Dosing Weight Start Date: 06/05/21 Stop Date: 12/02/21 Status: Ordered LORazepam (1 source) Benzodiazepine Start: 11-24-2020 LORazepam (ATI VAN) tablet 1 mg losartan potassium 50 mg oral tablet (4 sources) Angiotensin 2 Receptor Keisha Start: 05-12-2024 losartan 50 mg oral tablet Dose : 50 mg = 1 tab(s), Oral, qDay, # 90 tab(s), 1 Refill(s), Pharmacy: [facility], 170.2, cm, 05/11/24 9:17:00 EDT, Height, kg, 05/11/24 9:17:00 EDT, Dosing Weight Start Date: 05/12/24 Status: Ordered Quantity: 90.0 Unit: tab(s) Repeat number: 2 Start: 08-25-2023 losartan 25 mg oral tablet Dose : 25 mg = 1 tab(s), Oral, qDay, # 30 tab(s), 0 Refill(s), Pharmacy: [facility]/pharmacy #[id number], 170.2, cm, 07/08/23 9:52:00 EST, Height, kg, 07/08/23 9:46:00 EST, Dosing Weight Start Date: 08/25/23 Status: Ordered Start: 02-19-2023 losartan 25 mg oral tablet Dose : 25 mg = 1 tab(s), Oral, qDay, # 90 tab(s), 1 Refill(s), Pharmacy: [facility], 170.2, cm, 10/29/22 8:21:00 EDT, Height, kg, 12/10/22 7:46:00 EDT, Dosing Weight Start Date: 02/19/23 Status: Ordered Start: 07-30-2022 losartan 25 mg oral tablet Dose : 25 mg = 1 tab(s), Oral, qDay, # 90 tab(s), 1 Refill(s), Pharmacy: [facility], 170.2, cm, 07/30/22 8:17:00 EST, Height Start Date: 07/30/22 Status: Ordered magnesium hydroxide 80 mg/ml oral suspension (2 sources) Start: 06-12-2019 magnesium hydr oxide (MILK OF MAGNESIA) 400 MG/5ML suspension 30 mL Start: 03-08-2019 take 30 mL by mouth once daily as needed for constipation 30 mL, Oral, DAILY PRN, Constipation, Starting Wed03/08/19 at 2305 First line therapy for constipation. mecobalamin 1 mg chewable tablet (1 source) Start: 04-02-2020 take 4 tablets by mouth once daily Mecobalamin (Vitamin B12) 1,000 mcg tablet,chewable Active 4000 ug PO DAILY April 02, 2020 12:00am metFORMIN hydrochloride 500 mg oral tablet (8 sources) Biguanide Start: 11-24-2020 take 1000 mg by mouth twice daily at mealtime 1,000 mg, Oral, 2 TIMES DAILY WITH MEALS, First dose on 11/24/20 at 0800 Start: 04-02-2020 take 1 tablet by jay th twice daily Metformin 1,000 mg tablet Active 1000 mg PO TWICE A DAY April 02, 2020 12:00am Start: 04-26-2018 metFORMIN (GLU COPHAGE) 500 MG tablet Take 1 tablet by mouth 2 times daily (with meals) Once daily until 05/03/18 and then bid with food 60 tablet 3 04/26/2018 Suspended mirtazapine 7.5 mg oral tabl et (2 sources) Start: 03-07-2021 mirtazapine 7. 5 mg oral tablet Dose : 7.5 mg = 1 tab(s), Oral, qHS, 0 Refill(s) Start Date: 03/07/21 Status: Ordered Misc Medication (2 sources) Start: 08-17-2024 Misc Medicatio n 0 Refill(s), 88.9 Start Date: 08/17/24 Status: Ordered Repeat number: 1 Start: 08-17-2024 Misc Medicatio n 0 Refill(s), 88.9 Start Date: 08/17/24 Status: Ordered Repeat number: 1 1 ml morphine sulfate 4 mg/ml cartridge (4 sources) Opioid Agonist Start: 11-24-2020 take 4 mg by mouth every two hours as needed for pain 4 mg, Intravenous, EVERY 2 HOURS PRN, Pain Severe (7-10), Starting 11/24/20 at 0619 If oral and IV narcotics ordered, use oral first and only use IV if oral is ineffective or cannot take oral. Do Not give oral and IV within 1 hour of each other unless specifically ordered. Start: 03-08-2019 End: 03-08-2019 morphine injection 4 mg Multivitamin preparation (11 sources) Start: 01-21-2024 take 1 tablet by mouth once daily Multivitamin Dose = 1 tab(s), Oral, Daily, 0 Refill(s) Start Date: 01/21/24 Status: Ordered Repeat number: 1 Start: 01-16-2021 take 1 tablet by jay th once daily Multivitamin Dose = 1 tab(s), Oral, Daily, 0 Refill(s) Start Date: 01/16/21 Status: Ordered [id number] in (Centrum Silver Men) 300-600-300 mcg tablet (1 source) Start: 04-02-2020 [id number]-Ueuf in (Centrum Silver Men) 300-600-300 mcg tablet Active 1 {tbl} PO DAILY April 02, 2020 12:00am 24 hr nicotine 0.583 mg/hr transdermal system (2 sources) Cholin ergic Nicoti jennifer Agonis t Start: 06-05-2021 apply 1 dose transd ermal route once daily nicotine 14mg / 24hrs transdermal patch Dose = 1 patch(es), Transdermal, qDay, # 90 patch(es), 1 Refill(s), Pharmacy: [facility]acy #[id number], 167.5, cm, 06/05/21 8:18:00 EST, Height, kg, 06/05/21 8:18:00 EST, Dosing Weight Start Date: 06/05/21 Status: Ordered nitroglycerin 0.4 mg subling ual tablet (13 sources) Nitrat e Vasodi lator Start: 09-22-2018 Nitrostat 0.4 mg sublingual tablet Dose : 0.4 mg = 1 tab(s), Sublingual, q5min, PRN as needed for chest pain, # 100 tab(s), 0 Refill(s) Start Date: 09/22/18 Status: Ordered Quantity: 100.0 Unit: tab(s) Repeat number: 1 Start: 05-31-2017 Nitroglycerin 0.4 mg tablet, sublingual Active 0.4 mg SL Q5M as needed for Angina April 02, 2020 12:00am do not exceed 3 doses per episode Nitrostat 0.4 mg sublingual tablet (5 sources) Start: 09-22-2018 Nitrostat 0.4 mg sublingual tablet Dose : 0.4 mg = 1 tab(s), Sublingual, q5min, PRN as needed for chest pain, # 100 tab(s), 0 Refill(s) Start Date: 09/22/18 Status: Ordered omeprazole 40 mg delayed release oral capsule (20 sources) Proton Pump Inhibitor Start: 05-12-2024 omeprazo le 40 mg oral delayed release capsule Dose : 40 mg = 1 cap(s), Oral, qDay, # 90 cap(s), 1 Refill(s), Pharmacy: [facility], 170.2, cm, 05/11/24 9:17:00 EDT, Height, kg, 05/11/24 9:17:00 EDT, Dosing Weight Start Date: 05/12/24 Status: Ordered Quantity: 90.0 Unit: cap(s) Repeat number: 2 Start: 08-19-2023 omeprazole 40 mg oral delayed release capsule Dose : 40 mg = 1 cap(s), Oral, qDay, # 90 cap(s), 1 Refill(s), Pharmacy: [facility], 170.2, cm, 07/08/23 9:52:00 EST, Height, kg, 07/08/23 9:46:00 EST, Dosing Weight Start Date: 08/19/23 Status: Ordered Start: 03-11-2023 omeprazole 40 mg oral delayed release capsule Dose : 40 mg = 1 cap(s), Oral, qDay, # 90 cap(s), 1 Refill(s), Pharmacy: [facility], 170.2, cm, 03/11/23 9:16:00 EDT, Height, kg, 03/11/23 9:16:00 EDT, Dosing Weight Start Date: 03/11/23 Status: Ordered Start: 07-30-2022 omeprazole 40 mg oral delayed release capsule Dose : 40 mg = 1 cap(s), Oral, qDay, # 90 cap(s), 1 Refill(s), Pharmacy: [facility], 170.2, cm, 07/30/22 8:17:00 EST, Height, kg, 07/30/22 8:17:00 EST, Dosing Weight Start Date: 07/30/22 Status: Ordered Start: 02-24-2016 omeprazole 40 mg oral delayed release capsule Dose : 40 mg = 1 cap(s), Oral, qDay, # 90 cap(s), 1 Refill(s), [id number], 167.5, cm, 06/05/21 8:18:00 EST, Height, kg, 01/02/22 9:10:00 EDT, Dosing Weight Start Date: 04/01/22 Status: Ordered take 2 capsules by m outh once daily omeprazole (PRILOSEC) 20 MG delayed release capsule Take 40 mg by mouth daily 0 Suspended ondansetron 8 mg disintegrating oral tablet (13 sources) Serotonin-3 Receptor Antagonist Start: 08-17-2024 ondansetron 8 mg ora l tablet, disintegrating Dose : 8 mg = 1 tab(s), Oral, q8h, # 9 tab(s), 0 Refill(s) Start Date: 08/17/24 Status: Ordered Quantity: 9.0 Unit: tab(s) Repeat number: 1 Start: 09-28-2022 End: 10-03-2022 Zofran 8 mg oral tablet Dose : 8 mg = 1 tab(s), Oral, TID, X 5 day(s), # 15 tab(s), 0 Refill(s), 10/03/22 4:31:00 EST Start Date: 09/28/22 Stop Date: 10/03/22 Status: Ordered Start: 11-24-2020 End: 11-24-2020 ondansetron (ZOFRAN) injecti on 4 mg Start: 11-24-2020 End: 11-24-2020 ondansetron (ZOFRAN) injecti on 8 mg Start: 06-12-2019 ondansetron (Z OFRAN) injection 4 mg Start: 03-08-2019 End: 03-08-2019 4 mg, Intravenous, EVERY 6 H OURS PRN, Nausea, Starting Wed03/08/19 at 2305 Start: 04-26-2018 End: 11-24-2020 take 1 tablet by mouth four times daily as needed for nausea ondansetron (ZOFRAN) 4 MG tablet Take 1 tablet by mouth 4 times daily as needed for Nausea or Vomiting 30 tablet 0 04/26/2018 11/24/2020 Discontinued (LIST CLEANUP) oxyCODONE hydrochloride 5 mg oral tablet (1 source) Opioid Agonist Start: 05-01-2020 take 1 tablet by mouth every six hours as needed for pain Oxycodone 5 mg tablet Active 5 mg PO EVERY 6 HOURS as needed for pain May 01, 2020 Unspecified hemorrhoids pantoprazole 40 mg delayed release oral tablet (3 sources) Proton Pump Inhibitor Start: 11-24-2020 take 40 mg by mouth once daily before breakfast 40 mg, Oral, DAILY BEFORE BREAKFAST, First dose on Wed11/24/20 at 0700 Do not crush or break. Substituted for Omeprazole (PRILOSEC). Start: 06-14-2019 take 40 mg by mouth once daily before breakfast 40 mg, Oral, DAILY BEFORE BREAKFAST, First dose on 06/14/19 at 0700 Do not crush or break. Substituted for Omeprazole (PRILOSEC). Start: 03-09-2019 take 40 mg by mouth once daily before breakfast 40 mg, Oral, DAILY BEFORE BREAKFAST, First dose on [facility] 03/09/19 at 0700 Do not crush or break. Substituted for Omeprazole (PRILOSEC). predniSONE 10 mg oral tablet (3 sources) Start: 10-22-2023 take 4 tablets by mouth once daily, then take 3 tablets by mouth once daily, then take 2 tablets by mouth once daily, then take 1 tablet by mouth once daily predniSONE 10 mg oral tablet See Instructions, Take 4 tabs p.o. daily x 3 days, then 3 tabs p.o. daily x 3 days, then 2 tabs p.o. daily x 3 days, then 1 tab p.o. daily x 3 days, # 30 tab(s), 0 Refill(s), Pharmacy: [facility]acy #[id number], 170.2, cm, 10/22/23 11:20:00 EDT, Height, kg, 10/22/23 11:20:00 EDT, Dosing Weight Start Date: 10/22/23 Status: Ordered Start: 02-20-2020 End: 02-21-2020 predniSONE (DELTASONE) table t 60 mg Start: 02-20-2020 End: 03-01-2020 predniSONE (DELTASONE) 10 MG tablet 60 mg po x 5 days then 40 mg po x 2 days then 20 mg po x 2 days then 10 mg po x 2 days total of 11 days 44 tablet 0 02/20/2020 03/01/2020 Active pregabalin 75 mg oral capsul e (4 sources) Start: 10-22-2023 End: 11-21-2023 Lyrica 75 mg oral capsule Do se : 75 mg = 1 cap(s), Oral, BID, # 60 cap(s), 0 Refill(s), Pharmacy: [facility]/pharmacy #[id number], DDD (degenerative disc disease), lumbar Lumbar radiculopathy, 170.2, cm, 10/22/23 11:20:00 EDT, Height, 91.5, kg, 10/22/23 11:20:00 EDT, Dosing Weight Start Date: 10/22/23 Stop Date: 11/21/23 Status: Ordered Start: 03-08-2019 End: 06-12-2019 take 1 capsule by mouth twice daily pregabalin (LYRICA) 75 MG capsule Indications: Cervical pain (neck) Take 1 capsule by mouth 2 times daily for 30 days. 60 capsule 3 03/09/2019 06/12/2019 Discontinued (Therapy completed) Promethazine (2 sources) Phenothiazine Start: 11-24-2020 promethazine ( PHENERGAN) tablet 12.5 mg Start: 03-08-2019 End: 03-08-2019 promethazine (PHENERGAN) inj ection 12.5 mg QUEtiapine 25 mg oral tablet (16 sources) Atypical Antipsychotic Start: 04-09-2022 QUEtiap ine 25 mg oral tablet Dose : 25 mg = 1 tab(s), Oral, qDay, PRN Anxiety, # 30 tab(s), 0 Refill(s) Start Date: 04/09/22 Status: Ordered Start: 08-12-2020 take 1 tablet by jay th once daily QUETIAPINE FUMARATE 200 MG TABS 1 tablet by mouth once a day quetiapine [id number] Elizabeth Yoder AT Start: 06-13-2019 QUEtiapine 100 mg oral tablet Dose : 200 mg = 2 tab(s), Oral, qDay, 0 Refill(s) Start Date: 06/05/21 Status: Ordered Qvar Redihaler 40 mcg/inh inhalation aerosol (5 sources) Start: 06-05-2021 Qvar Redihaler 40 mcg/inh inhalation aerosol 40 mcg, Inhalation, BID, # 3 EA, 1 Refill(s), Pharmacy: [facility]acy #[id number], 167.5, cm, 06/05/21 8:18:00 EST, Height, kg, 06/05/21 8:18:00 EST, Dosing Weight Start Date: 06/05/21 Status: Ordered Start: 01-31-2019 Qvar Redihaler 40 mcg/inh inhalation aerosol 40 mcg, Inhalation, BID, # 3 EA, 1 Refill(s), Pharmacy: [facility] #[id number] Start Date: 01/31/19 Status: Ordered rosuvastatin calcium 40 mg oral tablet (3 sources) HMG-CoA Reductase Inhibitor Start: 07-11-2024 rosuvastatin 40 mg oral tablet Dose : 40 mg = 1 tab(s), Oral, qDay, # 90 tab(s), 3 Refill(s), Pharmacy: [facility], 170.2, cm, 05/11/24 9:17:00 EDT, Height, kg, 05/11/24 9:17:00 EDT, Dosing Weight Start Date: 07/11/24 Status: Ordered Quantity: 90.0 Unit: tab(s) Repeat number: 4 Start: 10-22-2023 rosuvastatin 4 0 mg oral tablet Dose : 40 mg = 1 tab(s), Oral, Daily, # 90 tab(s), 1 Refill(s), Pharmacy: [facility]acy #[id number], 170.2, cm, 10/22/23 11:20:00 EDT, Height, kg, 10/22/23 11:20:00 EDT, Dosing Weight Start Date: 10/22/23 Status: Ordered Start: 03-11-2023 rosuvastatin 4 0 mg oral tablet Dose : 40 mg = 1 tab(s), Oral, Daily, # 90 tab(s), 1 Refill(s), Pharmacy: [facility], 170.2, cm, 03/11/23 9:16:00 EDT, Height, kg, 03/11/23 9:16:00 EDT, Dosing Weight Start Date: 03/11/23 Status: Ordered sertraline 50 mg oral tablet (6 sources) Serotonin Reuptake Inhibitor Start: 10-09-2021 sertraline 50 mg ora l tablet Dose : 50 mg = 1 tab(s), Oral, qDay, # 30 tab(s), 0 Refill(s) Start Date: 10/09/21 Status: Ordered 3 ml sodium chloride 9 mg/ml injection (11 sources) Start: 11-24-2020 sodium chlorid e flush 0.9 % injection 5-40 mL Start: 11-24-2020 0.9 % sodium c hloride infusion Start: 11-24-2020 take 5-40 mL intrave nously once as needed 5-40 mL, Intravenous, PRN, Line Care, After every IV line use, Starting 11/24/20 at 0619 For Line Patency: Peripheral IV = 5 mL; Midline or Central Line = 10 mL/lumen. If following IV push medication, administer flush at same rate as the IV push. Flush volume is determined by type of infusion therapy being given. For non-viscous solutions use: Peripheral IV = 5 mL Midline or Central Line = 10 mL/lumen For viscous solutions (i.e. blood components, parenteral nutrition, contrast media, or after obtaining blood sample) use: Peripheral IV = 10 mL Midline or Central Line = 20 mL/lumen Start: 06-13-2019 sodium chlorid e (OCEAN, BABY AYR) 0.65 % nasal spray 1 spray Start: 06-12-2019 sodium chlorid e flush 0.9 % injection 10 mL Start: 03-08-2019 Intravenous, a t 75 mL/hr, CONTINUOUS, Starting Wed03/08/19 at 2330 Start: 03-08-2019 10 mL, Intrave nous, EVERY 12 HOURS SCHEDULED (2 times per day), First dose on Wed03/08/19 at 2330 Start: 03-08-2019 take 10 mL intraveno us route once as needed 10 mL, Intravenous, PRN, Line Care, After every IV line use, Starting Wed03/08/19 at 2305 sulfamethoxazole 800 mg / trimethoprim 160 mg oral tablet (1 source) Dihydrofolate Reductase Inhibitor Antibacterial, Sulfonamide Antimicrobial Start: 05-01-2020 Sulfamethoxazole-Trimethopri m 800-160 mg tablet Active 1 {tbl} PO Q12H 14 0 May 01, 2020 12:00am tamsulosin hydrochloride 0.4 mg oral capsule (1 source) alpha-Adrenergic Keisha Start: 04-20-2020 take 1 capsule by mouth once daily Tamsulosin 0.4 MG capsule Active 0.4 mg PO DAILY 14 0 April 20, 2020 12:00am thiamine 250 mg oral tablet (10 sources) Start: 03-09-2019 take 100 mg by mouth once daily 100 mg, Oral, DAILY, First dose on 11/24/20 at 0900 Start: 06-01-2018 take 1 tablet by jay th once daily Thiamine Hcl (Vitamin B1) 250 mg tablet Active 250 mg PO DAILY April 02, 2020 12:00am End: 03-09-2019 take 4 tablets by mouth once daily vitamin B-1 (THIAMINE) 100 MG tablet Take 400 mg by mouth daily 0 03/09/2019 Discontinued (DOSE ADJUSTMENT) valACYclovir 1000 mg oral tablet (1 source) Herpesvirus Nucleoside Analog DNA Polymerase Inhibitor, Herpes Simplex Virus Nucleoside Analog DNA Polymerase Inhibitor, Herpes Zoster Virus Nucleoside Analog DNA Polymerase Inhibitor Start: 02-20-2020 End: 02-27-2020 take 1 tablet by mouth three times daily valACYclovir (VALTREX) 1 g tablet Take 1 tablet by mouth 3 times daily for 7 days 21 tablet 0 02/20/2020 02/27/2020 Active verapamil hydrochloride 80 mg oral tablet (4 sources) Calcium Channel Keisha Start: 06-13-2019 take 40 mg by mouth twice daily 40 mg, Oral, 2 TIMES DAILY, First dose on Wed06/13/19 at 2100 End: 11-26-2020 take 1 tablet by mouth twice daily verapamil (CALAN) 40 MG tablet Take 40 mg by mouth 2 times daily 0 11/26/2020 Discontinued (Stop Taking at Discharge) vilazodone hydrochloride 10 mg oral tablet (6 sources) Start: 03-09-2019 take 10 mg by mouth once daily 10 mg, Oral, DAILY, First dose on Wed03/09/19 at 0900 vilazodone HCl ( VILAZODONE HCL) 10 MG TABS Take 40 mg by mouth daily 0 Suspended take 1 tablet by mouth once willi y vilazodone HCl (VILAZODONE HCL) 10 MG TABS Take 10 mg by mouth daily 0 Active Vitamin A (1 source) Vitamin A Start: 10-22-2023 vitamin A Oral , qDay, 0 Refill(s) Start Date: 10/22/23 Status: Ordered vitamin b12 0.5 mg oral tablet (14 sources) Vitamin B12 Start: 11-24-2020 take 1000 ug by mouth once daily 1,000 mcg, Oral, DAILY, First dose on Wed11/24/20 at 0900 Start: 03-09-2019 take 1000 ug by mout h once daily 1,000 mcg, Oral, DAILY, First dose on Wed03/09/19 at 0900 Start: 09-22-2018 Vitamin B12 10 00 mcg oral tablet Dose : 1,000 mcg = 1 tab(s), Oral, qDay, # 30 tab(s), 0 Refill(s) Start Date: 09/22/18 Status: Ordered Start: 05-05-2017 take 1 tablet by jay th twice daily VITAMIN B-12 1000 MCG TABS 1 tablet by mouth twice a day cyanocobalamin (vitamin b-12) [id number] Manav Rosales HARPAL vitamin B1 (9 sources) Start: 07-31-2019 vitamin B1 vit barraza B1, 0 Refill(s) Start Date: 07/31/19 Status: Ordered Vitamin B12 1000 mcg oral tablet (4 sources) Start: 09-22-2018 Vitamin B12 10 00 mcg oral tablet Dose : 1,000 mcg = 1 tab(s), Oral, qDay, # 30 tab(s), 0 Refill(s) Start Date: 09/22/18 Status: Ordered Vitamin C 1000 mg oral table t (7 sources) Start: 06-05-2021 Vitamin C 1000 mg oral tablet Dose : 1,000 mg = 1 tab(s), Oral, qDay, # 30 tab(s), 0 Refill(s) Start Date: 06/05/21 Status: Ordered Vitamin C 500 mg oral tablet (1 source) Start: 10-02-2022 Vitamin C 500 mg oral tablet Dose : 500 mg = 1 tab(s), Oral, qDay, # 30 tab(s), 0 Refill(s) Start Date: 10/02/22 Status: Ordered Vitamin D3 125 mcg (5000 int l units) oral capsule (10 sources) Start: 08-17-2024 Vitamin D3 125 mcg (5000 intl units) oral capsule Dose : 125 mcg = 1 cap(s), Oral, qDay, # 100 cap(s), 0 Refill(s) Start Date: 08/17/24 Status: Ordered Quantity: 100.0 Unit: cap(s) Repeat number: 1 Start: 07-30-2022 Vitamin D3 125 mcg (5000 intl units) oral capsule Dose : 125 mcg = 1 cap(s), Oral, qDay, # 90 cap(s), 3 Refill(s), Pharmacy: [facility], 170.2, cm, 07/30/22 8:17:00 EST, Height, kg, 07/30/22 8:17:00 EST, Dosing Weight Start Date: 07/30/22 Status: Ordered Start: 01-02-2022 Vitamin D3 125 mcg (5000 intl units) oral capsule Dose : 125 mcg = 1 cap(s), Oral, qDay, # 90 cap(s), 3 Refill(s), Pharmacy: [facility]/pharmacy #[id number], 167.5, cm, 06/05/21 8:18:00 EST, Height, kg, 01/02/22 9:10:00 EDT, Dosing Weight Start Date: 01/02/22 Status: Ordered Start: 10-09-2021 Vitamin D3 125 mcg (5000 intl units) oral capsule Dose : 125 mcg = 1 cap(s), Oral, qDay, # 30 cap(s), 0 Refill(s), Pharmacy: [facility]/pharmacy #[id number], 167.5, cm, 06/05/21 8:18:00 EST, Height, kg, 10/09/21 9:24:00 EDT, Dosing Weight Start Date: 10/09/21 Status: Ordered Start: 06-05-2021 Vitamin D3 125 mcg (5000 intl units) oral capsule Dose : 125 mcg = 1 cap(s), Oral, qDay, # 100 cap(s), 0 Refill(s) Start Date: 06/05/21 Status: Ordered Completed/Discontinued Medications Medication Drug Class(es) Dates Sig (Normalized) Sig (Original) 46955 UT (1 source) Start: 08-12-2020 VITAMIN D3 1.25 MG 1 tablet as directed once a week 60005 UT Manav Rosales LPN acyclovir 800 mg oral tablet (1 source) Herpesvirus Nucleoside Analog DNA Polymerase Inhibitor, Herpes Simplex Virus Nucleoside Analog DNA Polymerase Inhibitor, Herpes Zoster Virus Nucleoside Analog DNA Polymerase Inhibitor Start: 02-20-2020 End: 02-21-2020 acyclovir (ZOVIRAX) tablet 800 mg aluminum hydroxide 40 mg/ml / magnesium hydroxide 40 mg/ml / simethicone 4 mg/ml oral suspension (2 sources) Start: 04-26-2018 End: 03-08-2019 take 30 mL by mouth every six hours as needed aluminum & magnesium hydroxide-simethic one (MAALOX) 200-200-20 MG/5ML SUSP suspension Take 30 mLs by mouth every 6 hours as needed for Indigestion 1 Bottle 0 04/26/2018 03/08/2019 Discontinued ascorbic acid 1000 mg oral tablet (2 sources) Vitamin C Start: 08-12-2020 take 2 tablets by mouth once daily VITAMIN C 1000 MG TABS 2 tablet by mouth once a day ascorbic acid (vitamin c) [id number] Manav Rosales LPN Start: 04-02-2020 take 1 capsule by [facility] once daily Ascorbic Acid (Vitamin C) 500 mg capsule Active 500 mg PO DAILY April 02, 2020 12:00am CALCIUM CARBONATE-VIT D-MIN (1 source) Start: 08-12-2020 take 1 tablet by mouth twice daily CALCIUM 1200 [id number] MG-UNIT ORAL TABLET 1 tablet as directed twice a day CALCIUM CARBONATE-VIT D-MIN Manav Rosales LPN carboxymethylcellulose sodium 10 mg/ml ophthalmic solution (2 sources) Start: 02-20-2020 End: 11-26-2020 carboxymethylcellulose (ARTIFICIAL TEARS) 1 % ophthalmic solution Place 1 drop into the left eye 3 times daily 1 Bottle 4 02/20/2020 11/26/2020 Discontinued (Stop Taking at Discharge) 1 ml diphenhydrAMINE hydrochloride 50 mg/ml cartridge (1 source) Histamine-1 Receptor Antagonist Start: 03-08-2019 End: 03-08-2019 diphenhydrAMINE (BENADRYL) injection 25 mg empagliflozin 10 mg oral tablet (3 sources) Sodium-Glucose Cotransporter 2 Inhibitor Start: 02-03-2024 End: 08-21-2024 Jardiance 10 mg oral tablet Dose : 10 mg = 1 tab(s), Oral, qAM, # 100 tab(s), 1 Refill(s), Pharmacy: [facility]/pharmacy #[id number], 170.2, cm, 11/05/23 10:00:00 EDT, Height, kg, 01/21/24 14:40:00 EDT, Dosing Weight Start Date: 02/03/24 Stop Date: 08/21/24 Status: Ordered Quantity: 100.0 Unit: tab(s) Repeat number: 2 Start: 01-15-2023 End: 01-10-2024 Jardiance 10 mg oral tablet Dose : 10 mg = 1 tab(s), Oral, qAM, # 14 tab(s), 1 Refill(s), Pharmacy: [facility]/pharmacy #[id number], 170.2, cm, 10/22/23 11:20:00 EDT, Height, kg, 10/22/23 11:20:00 EDT, Dosing Weight Start Date: 10/22/23 Stop Date: 11/19/23 Status: Ordered gemfibrozil 600 mg oral tablet (7 sources) Peroxisome Proliferator Receptor alpha Agonist Start: 11-07-2016 take 1 tablet by mouth twice daily before mealtime gemfibrozil (LOPID) 600 MG tablet Take 1 tablet by mouth 2 times daily (before meals) 60 tablet 3 11/07/2016 Suspended 1 ml HYDROmorphone hydrochloride 1 mg/ml cartridge (2 sources) Opioid Agonist Start: 11-24-2020 End: 11-24-2020 HYDROmorphone (DILAUDID) injection 0.5 mg Start: 11-24-2020 End: 11-24-2020 HYDROmorphone (DILAUDID) inj ection 1 mg iohexol (OMNIPAQUE 240) injection 50 mL (1 source) Start: 11-25-2020 End: 11-25-2020 iohexol (OMNIPAQUE 240) injection 50 mL Iopamidol (1 source) Radiographic Contrast Agent Start: 03-09-2019 End: 03-09-2019 iopamidol (ISOVUE-370) 76 % injection 75 mL iopamidol (ISOVUE-370) 76 % injection 75 mL (2 sources) Start: 11-25-2020 End: 11-25-2020 iopamidol (ISOVUE-370) 76 % injection 75 mL Start: 02-20-2020 End: 02-20-2020 iopamidol (ISOVUE-370) 76 % injection 75 mL ketamine 10 mg/ml injectable solution (1 source) General Anesthetic Start: 11-24-2020 End: 11-24-2020 ketamine (KETALAR) injection 20 mg MULTIPLE VITAMINS-MINERALS (1 source) Start: 02-24-2016 CENTRUM ADULTS TABS 1 tablet as directed once a day MULTIPLE VITAMINS-MINERALS Manav Rosales LPN nicotine 2 mg oral transmucosal gum (2 sources) Start: 06-05-2021 take 1 dose by mouth every hour as needed nicotine 2 mg oral transmucosal gum 2 mg Dose = 1 EA, Chewed, q1h, PRN as needed for smoking cessation, # 160 EA, 1 Refill(s), Pharmacy: [facility]/pharmacy #[id number], 167.5, cm, 06/05/21 8:18:00 EST, Height, kg, 06/05/21 8:18:00 EST, Dosing Weight Start Date: 06/05/21 Status: Ordered sodium chloride 0.9 % 1,000 mL with folic acid 1 mg, adult multi-vitamin with vitamin k 10 mL, thiamine 100 mg (1 source) Start: 06-13-2019 End: 06-15-2019 sodium chloride 0.9 % 1,000 mL with folic acid 1 mg, adult multi-vitamin with vitamin k 10 mL, thiamine 100 mg Problems Active Problems Problem Classification Problem Date Documented Da te Episodic/Chronic Abdominal hernia (1 source) Hiatal hernia; Translations: [Diaphragmatic hernia without obstruction or gangrene] 04-08-2020 Episodic Acquired foot deformities (1 source) Toe joint rigid; Translations: [Hallux rigidus, right foot] Onset: 8 07-27-2017 Chronic Acute myocardial infarction (20 sources) Myocardial infarction; Translations: [Acute myocardial infarction, unspecified] Onset: 6 09-23-2016 Chronic Administrative/social admission (13 sources) Financial problem 03-29-2020 Episodic Alcohol-related disorders (13 sources) Alcohol abuse 01-24-2019 Chronic Anxiety disorders (13 sources) Anxiety 01-31-2019 Chronic Coronary atherosclerosis and other heart disease (16 sources) Coronary arteriosclerosis; Translations: [History of myocardial infarction] 01-24-2019 Chronic Deficiency and other anemia (4 sources) Iron deficiency anemia due to blood loss; Translations: [Iron deficiency anemia secondary to blood loss (chronic)] Onset: 9 12-23-2018 Chronic Deficiency and other anemia (10 sources) Anemia 01-30-2020 Episodic Deficiency and other anemia (5 sources) Iron deficiency anemia due to blood loss; Translations: [Iron deficiency anemia due to chronic blood loss] Onset: 9 12-23-2018 Diabetes mellitus with complications (1 source) 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 11-05-2023 Chronic Diabetes mellitus without complication (20 sources) Type 2 diabetes mellitus; Translations: [Type 2 diabetes mellitus without complications] Onset: 8 04-26-2018 Chronic Disorders of lipid metabolism (20 sources) Hyperlipidemia; Translations: [Hyperlipidemia, unspecified] Onset: 9 03-09-2019 Chronic Esophageal disorders (1 source) Gastroesophageal reflux disease; Translations: [Gastro-esophageal reflux disease without esophagitis] 04-08-2020 Chronic Essential hypertension (12 sources) Hypertensive disorder; Translations: [Essential (primary) hypertension] Onset: 9 03-09-2019 Chronic Gastrointestinal hemorrhage (10 sources) Rectal hemorrhage; Translations: [Hemorrhage of anus and rectum] Onset: 7 05-21-2017 Episodic Genitourinary symptoms and ill-defined conditions (1 source) Acute retention of urine ; Translations: [Other retention of urine] 04-21-2020 Episodic Headache; including migraine (3 sources) Occipital headache; Translations: [Occipital headache] Onset: 9 03-09-2019 Chronic Hemorrhoids (15 sources) Hemorrhoids; Translations: [Bleeding hemorrhoids] 03-29-2020 Episodic Miscellaneous mental health disorders (3 sources) Bruxism (teeth grinding) 10-02-2022 Chronic Mood disorders (13 sources) Recurrent major depressive episodes, moderate 01-30-2020 Chronic Nausea and vomiting (13 sources) Nausea 06-11-2019 Episodic Nutritional deficiencies (15 sources) Vitamin D deficiency; Translations: [Vitamin D deficiency, unspecified] Onset: 3 01-24-2019 Chronic Osteoarthritis (2 sources) Arthritis of right ankle; Translations: [Primary osteoarthritis, right ankle and foot] Onset: 8 08-15-2020 Chronic Osteoporosis (4 sources) Osteoporosis 01-02-2022 Chronic Other bone disease and musculoskeletal deformities (1 source) Aseptic necrosis of bone of hip; 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] Onset: 6 03-27-2016 Chronic Other connective tissue disease (1 source) History of total hip arthroplasty; Translations: [Presence of left artificial hip joint] Onset: 6 06-15-2016 Chronic Other connective tissue disease (2 sources) Pain in leg, unspecified; Translations: [Pain in leg, unspecified] Onset: 4 Episodic Other gastrointestinal disorders (7 sources) Malabsorption - iron; Translations: [Intestinal malabsorption, unspecified] Onset: 9 12-23-2018 Chronic Other gastrointestinal disorders (13 sources) History of pancreatitis 01-30-2020 Episodic Other liver diseases (1 source) Fatty (change of) liver, not elsewhere classified; Translations: [Fatty (change of) liver, not elsewhere classified] Onset: 5 Chronic Other liver diseases (13 sources) Elevated liver enzymes level 01-30-2020 Episodic Other nervous system disorders (1 source) Neuropathy; Translations: [Polyneuropathy, unspecified] Onset: 1 08-15-2020 Chronic Other nervous system disorders (14 sources) Eastman's palsy; Translations: [Eastman's palsy] 03-29-2020 Episodic Other nervous system disorders (13 sources) Paresthesia 01-30-2020 Episodic Other non-traumatic joint disorders (13 sources) Ankle pain 01-30-2020 Episodic Other nutritional; endocrine; and metabolic disorders (1 source) Lipomatosis; Translations: [Lipomatosis, not elsewhere classified] Onset: 8 06-02-2018 Chronic Pancreatic disorders (not diabetes) (2 sources) Recurrent pancreatitis; Translations: [Pancreatitis, recurrent] Onset: 9 05-09-2022 Chronic Pancreatic disorders (not diabetes) (20 sources) Acute pancreatitis; Translations: [Alcohol-induced acute pancreatitis] Onset: 8 02-02-2019 Episodic Residual codes; unclassified (13 sources) Obstructive sleep apnea syndrome 01-24-2019 Chronic Residual codes; unclassified (13 sources) Insomnia 01-24-2019 Episodic Residual codes; unclassified (13 sources) Tobacco user 01-30-2020 Episodic Spondylosis; intervertebral disc disorders; other back problems (5 sources) Prolapsed lumbar intervertebral disc; Translations: [Other intervertebral disc displacement, lumbar region] Onset: 7 06-02-2018 Chronic Spondylosis; intervertebral disc disorders; other back problems (12 sources) Neck pain; Translations: [Cervico-occipital neuralgia] Onset: 7 03-09-2019 Episodic Substance-related disorders (11 sources) Nicotine dependence 06-05-2021 Chronic Syncope (1 source) Syncope and collapse; Translations: [Syncope and collapse] Onset: 5 Episodic Viral infection (13 sources) Herpes zoster 01-24-2019 Episodic Past or Other Problems Problem Classification Problem Date Documented Date Episodic/Chronic Abdominal pain (17 sources) Abdominal pain; Translations: [Unspecified abdominal pain] Onset: 09-28-2022 05-28-2020 Episodic Biliary tract disease (7 sources) Calculus of gallbladder with cholecystitis; Translations: [Chronic cholecystitis with calculus] Onset: 11-17-2016 11-17-2016 Episodic Complications of surgical procedures or medical care (1 source) Non-union after arthrodesis; Translations: [Pseudarthrosis after fusion or arthrodesis] Onset: 09-26-2020 09-26-2020 Episodic Deficiency and other anemia (2 sources) Anemia, unspecified; Translations: [Anemia, unspecified] Onset: 05-26-2023 Episodic Fracture of lower limb (1 source) Closed fracture of distal fibula ; Translations: [Other fracture of upper and lower end of right fibula, subsequent encounter for closed fracture with routine healing] Onset: 09-02-2017 09-02-2017 Episodic Headache; including migraine (10 sources) Headache; Translations: [Headache] Onset: 03-08-2019 03-09-2019 Episodic Other aftercare (1 source) Wound ; Translations: [Encounter for other specified surgical aftercare] Onset: 07-21-2018 07-21-2018 Episodic Other aftercare (1 source) Surgical follow-up; Translations: [Encounter for other specified surgical aftercare] Onset: 07-21-2018 07-21-2018 Episodic Other connective tissue disease (1 source) History of lumbar fusion; Translations: [Arthrodesis status] Onset: 07-20-2018 07-20-2018 Episodic Other connective tissue disease (1 source) Trochanteric bursitis; Translations: [Trochanteric bursitis, left hip] Onset: 03-10-2017 03-10-2017 Episodic Other connective tissue disease (1 source) Iliotibial band friction syndrome; Translations: [Iliotibial band syndrome, left leg] Onset: 08-31-2016 08-31-2016 Episodic Other connective tissue disease (1 source) Swollen legs ; Translations: [Other specified soft tissue disorders] Onset: 06-08-2016 06-08-2016 Episodic Other liver diseases (6 sources) Enzyme level - finding; Translations: [Transaminitis] Onset: 06-14-2019 06-14-2019 Episodic Other screening for suspected conditions (not mental disorders or infectious disease) (16 sources) Thallium stress test abnormal; Translations: [Liver function tests abnormal] Onset: 09-23-2016 09-23-2016 Episodic Sprains and strains (1 source) Sprain of ankle; Translations: [Sprain of unspecified ligament of right ankle, subsequent encounter] Onset: 07-27-2017 09-02-2017 Episodic Unclassified (1 source) Problem Unclassified (1 source) right ankle surgery 02-21-2022 Results Test Name Value Interpretation Reference Range Facility ABD Limited w/ Elastographyo n 02-20-2025 ABD Limited w/ Elastography [facility] Imaging Services [address] [place], [place] [id number] ABD Limited w/ Elastography MR#: [id number] Acct: [id number] Name: AGA ADAN Rep #: [id number] : 1965 M 59 From: Alton brito MD PCP: Dr. Alba Tena, DO Status: REG CLI Study: ABD Limited w/ Elastography Date of Exam: 01/24 04/19 Exam# [id number] Ordering Dr: Sarkis Alvarez MD PROCEDURE: ABD LIMITED W/ ELASTOGRAPHY REASON FOR EXAM: FATTY LIVER COMPARISON: None. TECHNIQUE: Right upper quadrant abdominal ultrasound. Theodore ElastQ Imaging shear wave elastography for non- invasive assessment of liver tissue stiffness. Theodore EPIQ Elite. FINDINGS: LIVER: Size: Enlarged (hepatomegaly) Length: 21.3 cm Echotexture: Diffusely echogenic suggesting fatty infiltration Contour: Normal Lesions: None identified Elastography: EQI Med: 9.4 kPa EQI Med Bobby: 1.8 m/s IQR/Med: 17 %* GALLBLADDER: Surgically absent. COMMON BILE DUCT: Dilated measuring up to 9.5 mm . PANCREAS: Normal Visualized portions of the right kidney are unremarkable. No right upper quadrant ascites. US/ABD Limited w/ Elastography IMPRESSION: MODERATE TO SEVERE HEPATIC FIBROSIS Hepatomegaly. Fatty infiltration of the liver. Reference Values: SRU <1.37 m/s (5.7kPa): No to mild fibrosis 1.37 m/s - 2.2 m/s: Moderate to severe fibrosis >2.2 m/s (15kPa): Significant fibrosis / cirrhosis METAVIR Score F2 or higher: 1.34 m/s (5.7kPa) F3 or higher: 1.55 m/s (7.3kPa) F4: 1.80 m/s (10kPa) * If the IQR/Med is >30%, the variance in the measurements is a large and the accuracy of the measurement may be in question. Reading Location: [id number] CC: Dr. Alba Tena, DO; Dr. Sarkis Alvarez MD 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: Signed Normal [facility] SOLANGE SCREEN, IFA, W/REFL TITE R AND PATTERNon 11-24-2024 SOLANGE SCREEN, IFA Positive Abnormal NEGATIVE [facility] Comment on above: Result Comment: SOLANGE IFA is a first line screen for detecting the presence of up to approximately 150 autoantibodies in various autoimmune diseases. A positive SOLANGE IFA result is suggestive of autoimmune disease and reflexes to titer and pattern. Further laboratory testing may be considered if clinically indicated. For additional information, please refer to http://education.[employer]/faq/HNF860 (This link is being provided for informational/ educational purposes only.) Performed By: #### % 25651, 606, 809, 5363, 15565, 4420, 249, 6399 #### [facility] [address], [address] [place] [phone] Timekeeper: Rikki Alexander MD #### [id number], [id number] #### [facility] [address] [facility] [place] [address] Timekeeper: Walter Bearden M.D.,PhD ANTINUCLEAR ANTIBODIES TITER AND PATTERNon 11-24-2024 SOLANGE PATTERN Nuclear, Dense Fine Speckled Abnormal [facility] Comment on above: Result Comment: Dens e fine speckled pattern is seen in normal individuals and rarely associated with systemic lupus erythematosis (SLE), Sjogren's syndrome and systemic sclerosis. AC-2: Dense Fine Speckled International Consensus on SOLANGE Patterns (https://doi.org/10.1515/ugrn-1544-8558) Performed By: #### % 85959, 606, 809, 5363, 42634, 4420, 249, 6399 #### [facility] [address], [address] [place] [phone] Timekeeper: Rikki Alexander MD #### [id number], [id number] #### [facility]/[address] [place], [place] Timekeeper: Walter Bearden M.D.,PhD SOLANGE TITER 1:40 High [facility] Comment on above: Result Comment: A lo w level SOLANGE titer may be present in pre-clinical autoimmune diseases and normal individuals. Reference Range <1:40 Negative 1:40-1:80 Low Antibody Level >1:80 Elevated Antibody Level Performed By: #### % 34346, 606, 809, 5363, 84404, 4420, 249, 6399 #### [facility] [address] Timekeeper: Rikki Alexander MD #### 10735, 6085 #### [facility]/[address] [place], [place] Timekeeper: Walter Bearden M.D.,PhD C-REACTIVE PROTEINon 025 CRP [Mass/Vol] mg/L Normal <8.0 [facility] Comment on above: Performed By: #### % 73162, 606, 809, 5363, 89284, 4420, 249, 6399 #### [facility] [address], [address] [place], [place] [phone] Timekeeper: Rikki Alexander MD #### [id number], 6085 #### [facility]/[address] [place], [place] Timekeeper: Walter Bearden M.D.,PhD CBC (INCLUDES DIFF/PLT)on Basophils (Bld) [#/Vol] 0.029 10*3/uL Normal 0-200 [facility] Comment on above: Performed By: #### % 44364, 606, 809, 5363, 92966, 4420, 249, 6399 #### [facility] [address], [address] [place], [place] [phone] Timekeeper: Rikki Alexander MD #### 73713, 6085 #### [facility]/[address] [place], [place] Timekeeper: Walter Bearden M.D.,PhD Basophils/100 WBC (Bld) 0.7 % Normal [facility] Comment on above: Performed By: #### % 17059, 606, 809, 5363, 37187, 4420, 249, 6399 #### [facility] of [facility] [address], [address] [place], [place] [phone] Timekeeper: Rikki Alexander MD #### [id number], 6085 #### [facility]/[place] [id number] [facility] [place], [place] Timekeeper: Walter Bearden M.D.,PhD COMMENT Normal [facility] Comment on above: Result Comment: We received your handwritten test order and performed CBC with differential (includes hemogram, platelet count and WBC with automated differential). If you intended to order a CBC without differential or another test, please contact us at [phone] ( [phone] to adjust the billing appropriately. Performed By: #### % 40329, 606, 809, 5363, 17447, 4420, 249, 6399 #### [facility] [place] [address] [facility], [address] [place], [place] [id number] Timekeeper: Rikki Alexander MD #### [id number], 6085 #### [facility] [place], [place] Timekeeper: Walter Bearden M.D.,PhD Eosinophils (Bld) [#/Vol] 0.122 10*3/uL Normal 15-500 [facility] Comment on above: Performed By: #### % 24029, 606, 809, 5363, 00472, 4420, 249, 6399 #### [facility] [address] , [address] [place], [place] [address] Timekeeper: Rikki Alexander MD #### 67612, 6085 #### [facility]/[place] [id number] [facility] [place], [place] Timekeeper: Walter Bearden M.D.,PhD Eosinophils/100 WBC (Bld) 2.9 % Normal [facility] Comment on above: Performed By: #### % 44304, 606, 809, 5363, 79882, 4420, 249, 6399 #### [facility] of [place] [address], [address] [place], [place] [id number] Timekeeper: Rikki Alexander MD #### [id number], 6085 #### [facility]/[place] [id number] [facility] [place], [place] Timekeeper: Walter Bearden M.D.,PhD Erythrocyte distribution width (RBC) [Ratio] 12.7 % Normal 11.0-15.0 [facility] Comment on above: Performed By: #### % 40904, 606, 809, 5363, 13965, 4420, 249, 6399 #### [facility] of [address], [address] [place], [place] [id number] Timekeeper: Rikki Alexander MD #### 44906, 6085 #### [facility]/[address] [place], [place] Timekeeper: Walter Bearden M.D.,PhD Hematocrit (Bld) [Volume fraction] 42.0 % Normal 38.5-50.0 [facility] Comment on above: Performed By: #### % 58701, 606, 809, 5363, 03657, 4420, 249, 6399 #### [facility] of [address], [address] [place], [place] [id number] Timekeeper: Rikki Alexander MD #### 19440, 6085 #### [facility]/[place] [id number] [facility] [place] Timekeeper: Walter Bearden M.D.,PhD Hemoglobin (Bld) [Mass/Vol] 14.4 g/dL Normal 13.2-17.1 [facility] Comment on above: Performed By: #### % 88664, 606, 809, 5363, 82779, 4420, 249, 6399 #### [facility] of [place] [address] [address] , [address] [place], [place] [phone] Timekeeper: Rikki Alexander MD #### 64656, 6085 #### [facility]/[address] [place], [place] Timekeeper: Walter Bearden M.D.,PhD Lymphocytes (Bld) [#/Vol] 1.021 10*3/uL Normal 850-3900 [facility] Comment on above: Performed By: #### % 82236, 606, 809, 5363, 33298, 4420, 249, 6399 #### [facility] of [address], [address] [place], [place] [address] Timekeeper: Rikki Alexander MD #### 98891, 6085 #### [facility]/[address] [place], [place] Timekeeper: Walter Bearden M.D.,PhD Lymphocytes/100 WBC (Bld) 24.3 % Normal [facility] Comment on above: Performed By: #### % 42922, 606, 809, 5363, 69251, 4420, 249, 6399 #### [facility] of [address], [address] [place], [place] [address] Timekeeper: Rikki Alexander MD #### [id number], 6085 #### [facility]/[address] [place], [place] Timekeeper: Walter Bearden M.D.,PhD MCH (RBC) [Entitic mass] 32.6 pg Normal 27.0-33.0 [facility] Comment on above: Performed By: #### % 77956, 606, 809, 5363, 04242, 4420, 249, 6399 #### [facility] [address], [address] [place], [place] [address] Timekeeper: Rikki Alexander MD #### 23455, 6085 #### [facility]/[address] [place] Timekeeper: Walter Beadren M.D.,PhD MCHC (RBC) [Mass/Vol] 34.3 g/dL Normal 32.0-36.0 [facility] Comment on above: Result Comment: For adults, a slight decrease in the calculated MCHC value (in the range of 30 to 32 g/dL) is most likely not clinically significant; however, it should be interpreted with caution in correlation with other red cell parameters and the patient's clinical condition. Performed By: #### % 82332, 606, 809, 5363, 48236, 4420, 249, 6399 #### [facility] [address], [address] [place] [address] Timekeeper: Rikki Alexander MD #### [id number], 6085 #### [facility] [address] [facility] [place], [place] Timekeeper: Walter Bearden M.D.,PhD MCV (RBC) [Entitic vol] 95.0 fL Normal 80.0-100.0 [facility] Comment on above: Performed By: #### % 04409, 606, 809, 5363, 00992, 4420, 249, 6399 #### [facility] [address], [address] [place] [address] Timekeeper: Rikki Alexander MD #### [id number], 6085 #### [facility] [place] Timekeeper: Walter Bearden M.D.,PhD Monocytes (Bld) [#/Vol] 0.302 10*3/uL Normal 200-950 [facility] Comment on above: Performed By: #### % 70698, 606, 809, 5363, 35915, 4420, 249, 6399 #### [facility] of [address], [address] [place], [place] [address] Timekeeper: Rikki Alexander MD #### 28730, 6085 #### [facility]/[address] [place], [place] Timekeeper: Walter Bearden M.D.,PhD Monocytes/100 WBC (Bld) 7.2 % Normal [facility] Comment on above: Performed By: #### % 56516, 606, 809, 5363, 04215, 4420, 249, 6399 #### [facility] of [address], [address] [place], [place] [address] Timekeeper: Rikki Alexander MD #### 30383, 6085 #### [facility]/[address] [place], [place] Timekeeper: Walter Bearden M.D.,PhD Neutrophils (Bld) [#/Vol] 2.726 10*3/uL Normal 4106-0291 [facility] Comment on above: Performed By: #### % 27737, 606, 809, 5363, 28549, 4420, 249, 6399 #### [facility] of [address], [address] [place], [place] [address] Timekeeper: Rikki Alexander MD #### 56138, 6085 #### [facility]/[address] [place], [place] Timekeeper: Walter Bearden M.D.,PhD Neutrophils/100 WBC (Bld) 64.9 % Normal [facility] Comment on above: Performed By: #### % 59904, 606, 809, 5363, 16284, 4420, 249, 6399 #### [facility] of [address] [address] Timekeeper: Rikki Alexander MD #### 92040, 6085 #### [facility]/[address] [place], [place] Timekeeper: Walter Bearden M.D.,PhD Platelet mean volume (Bld) [Entitic vol] 9.9 fL Normal 7.5-12.5 [facility] Comment on above: Performed By: #### % 93718, 606, 809, 5363, 33111, 4420, 249, 6399 #### [facility] of [address], [address] [place], [place] [id number] Timekeeper: Rikki Alexander MD #### 29548, 6085 #### [facility]/[address] [place], [place] Timekeeper: Walter Bearden M.D.,PhD Platelets (Bld) [#/Vol] 176 10*3/uL Normal 140-400 [facility] Comment on above: Performed By: #### % 46977, 606, 809, 5363, 30927, 4420, 249, 6399 #### [facility] of [address], [address] [place], [place] [id number] Timekeeper: Rikki Alexander MD #### 81458, 6085 #### [facility]/[address] [place], [place] Timekeeper: Walter Bearden M.D.,PhD RBC (Bld) [#/Vol] 4.42 10*6/uL Normal 4.20-5.80 [facility] Comment on above: Performed By: #### % 12772, 606, 809, 5363, 32097, 4420, 249, 6399 #### [facility] of [address], [address] [place], [place] [id number] Timekeeper: Rikki Alexander MD #### 40521, 6085 #### [facility]/[address] [place], [place] Timekeeper: Walter Bearden M.D.,PhD WBC (Bld) [#/Vol] 4.2 10*3/uL Normal 3.8-10.8 [facility] Comment on above: Performed By: #### % 37879, 606, 809, 5363, 86808, 4420, 249, 6399 #### [facility] [address], [address] [place] [address] Timekeeper: Rikki Alexander MD #### 25881, 6085 #### [facility]/[address] [place], [place] Timekeeper: Walter Bearden M.D.,PhD CHROMIUM, [facility] 11-24-2024 CHROMIUM, BLOOD <0.5 Normal <=1.2 [facility] Comment on above: Result Comment: This test was developed and its analytical performance characteristics have been determined by [facility] [place], [place]. It has not been cleared or approved by the U.S. Food and Drug Administration. This assay has been validated pursuant to the CLIA regulations and is used for clinical purposes. Performed By: #### % 34200, 606, 809, 5363, 49940, 4420, 249, 6399 #### [facility] [address], [address] [place] [address] Timekeeper: Rikki Alexander MD #### 63610, 6085 #### [facility]/[address] [place], [place] Timekeeper: Walter Bearden M.D.,PhD COBALT, [facility] 11-24-2024 COBALT, BLOOD <0.5 Normal <=1.8 [facility] Comment on above: Result Comment: This test was developed and its analytical performance characteristics have been determined by [facility] [place], [place]. It has not been cleared or approved by the U.S. Food and Drug Administration. This assay has been validated pursuant to the CLIA regulations and is used for clinical purposes. Performed By: #### % 79312, 606, 809, 5363, 61373, 4420, 249, 6399 #### [facility] of [address] Timekeeper: Rikki Alexander MD #### 86378, 6085 #### [facility]/[place] [id number] [facility] [place], [place] Timekeeper: Walter Bearden M.D.,PhD COMPREHENSIVE METABOLIC PANE [facility] 11-24-2024 Albumin [Mass/Vol] 4.8 g/dL Normal 3.6-5.1 [facility] Comment on above: Performed By: #### % 60114, 606, 809, 5363, 98848, 4420, 249, 6399 #### [facility] of [place] [id number] Timekeeper: Rikki Alexander MD #### 06587, 6085 #### [facility]/[address] [place], [place] Timekeeper: Walter Bearden M.D.,PhD Albumin/Globulin [Mass ratio] 2.1 {ratio} Normal 1.0-2.5 [facility] Comment on above: Performed By: #### % 44375, 606, 809, 5363, 34260, 4420, 249, 6399 #### [facility] of [place] [id number] Timekeeper: Rikki Alexander MD #### 07600, 6085 #### [facility]/[address] [place], [place] Timekeeper: Walter Bearden M.D.,PhD ALP [Catalytic activity/Vol] 72 U/L Normal 35-144 [facility] Comment on above: Performed By: #### % 60782, 606, 809, 5363, 66840, 4420, 249, 6399 #### [facility] of [address] [place] [address] Timekeeper: Rikki Alexander MD #### 32242, 6085 #### [facility]/[place] [id number] [facility] [place], [place] Timekeeper: Walter Bearden M.D.,PhD ALT [Catalytic activity/Vol] 41 U/L Normal 9-46 [facility] Comment on above: Performed By: #### % 48389, 606, 809, 5363, 50027, 4420, 249, 6399 #### [facility] of [address], [address] [place], [place] [address] Timekeeper: Rikki Alexander MD #### 74250, 6085 #### [facility]/[place] [id number] [facility] [place], [place] Timekeeper: Walter Bearden M.D.,PhD AST [Catalytic activity/Vol] 25 U/L Normal 10-35 [facility] Comment on above: Performed By: #### % 69769, 606, 809, 5363, 74362, 4420, 249, 6399 #### [facility] of [address], [address] [place], [place] [address] Timekeeper: Rikki Alexander MD #### 83522, 6085 #### [facility]/[place] [id number] [facility] [place] Timekeeper: Walter Bearden M.D.,PhD Bilirubin [Mass/Vol] 0.7 mg/dL Normal 0.2-1.2 [facility] Comment on above: Performed By: #### % 64142, 606, 809, 5363, 12961, 4420, 249, 6399 #### [facility] of [address], [address] [place], [place] [address] Timekeeper: Rikki Alexander MD #### 36471, 6085 #### [facility]/[place] [id number] [facility] [address] [place], [place] Timekeeper: Walter Bearden M.D.,PhD BUN/CREATININE RATIO SEE NOTE: Normal 6-22 [facility] Comment on above: Result Comment: Not Reported: BUN and Creatinine are within reference range. Performed By: #### % 75369, 606, 809, 5363, 50889, 4420, 249, 6399 #### [facility] of [place] [address] [place] , [address] [place], [place] [address] Timekeeper: Rikki Alexander MD #### 93970, 6085 #### [facility]/[place] [address] [place], [place] Timekeeper: Walter Bearden M.D.,PhD Calcium [Mass/Vol] 10.0 mg/dL Normal 8.6-10.3 [facility] Comment on above: Performed By: #### % 12716, 606, 809, 5363, 84279, 4420, 249, 6399 #### [facility] of [address], [address] [place], [place] [address] Timekeeper: Rikki Alexander MD #### 74884, 6085 #### [facility]/[address] [place] Timekeeper: Walter Bearden M.D.,PhD Chloride [Moles/Vol] 98 mmol/L Normal 98-110 [facility] Comment on above: Performed By: #### % 01822, 606, 809, 5363, 51909, 4420, 249, 6399 #### [facility] of [place] [address] [place] , [address] [place], [place] [address] Timekeeper: Rikki Alexander MD #### 62556, 6085 #### [facility]/[address] [place] Timekeeper: Walter Bearden M.D.,PhD CO2 [Moles/Vol] 30 mmol/L Normal 20-32 [facility] Comment on above: Performed By: #### % 27484, 606, 809, 5363, 81863, 4420, 249, 6399 #### [facility] [address] Timekeeper: Rikki Alexander MD #### 21718, 6085 #### [facility]/[address] [place], [place] Timekeeper: Walter Bearden M.D.,PhD Creatinine [Mass/Vol] 0.90 mg/dL Normal 0.70-1.30 [facility] Comment on above: Performed By: #### % 80859, 606, 809, 5363, 02121, 4420, 249, 6399 #### [facility] of [place] [id number] Timekeeper: Rikki Alexander MD #### 22706, 6085 #### [facility]/[address] [place], [place] Timekeeper: Walter Bearden M.D.,PhD GFR/1.73 sq M.predicted among non-blacks MDRD (S/P/Bld) [Vol rate/Area] 99 mL/min/{1.73_m2} Normal > OR = 60 [facility] Comment on above: Performed By: #### % 85031, 606, 809, 5363, 32757, 4420, 249, 6399 #### [facility] of [place] [id number] Timekeeper: Rikki Alexander MD #### 02042, 6085 #### [facility]/[address] [place], [place] Timekeeper: Walter Bearden M.D.,PhD Globulin (S) [Mass/Vol] 2.3 g/dL Normal 1.9-3.7 [facility] Comment on above: Performed By: #### % 37017, 606, 809, 5363, 50223, 4420, 249, 6399 #### [facility] [address], [address] [place], [place] [address] Timekeeper: Rikki Alexander MD #### 84619, 6085 #### [facility]/[place] [id number] [facility] [place], [place] Timekeeper: Walter Bearden M.D.,PhD Glucose [Mass/Vol] 212 mg/dL High 65-99 [facility] Comment on above: Result Comment: Fasting reference interval For someone without known diabetes, a glucose value >125 mg/dL indicates that they may have diabetes and this should be confirmed with a follow-up test. Performed By: #### % 33876, 606, 809, 5363, 96943, 4420, 249, 6399 #### [facility] [place] [id number] Timekeeper: Rikki Alexander MD #### 67467, 6085 #### [facility] [address] [facility] [place], [place] Timekeeper: Walter Bearden M.D.,PhD Potassium [Moles/Vol] 5.2 mmol/L Normal 3.5-5.3 [facility] Comment on above: Performed By: #### % 47572, 606, 809, 5363, 04218, 4420, 249, 6399 #### [facility] [address] Timekeeper: Rikki Alexander MD #### 17476, 6085 #### [facility] [address] [facility] [address] [place] Timekeeper: Walter Bearden M.D.,PhD Protein [Mass/Vol] 7.1 g/dL Normal 6.1-8.1 [facility] Comment on above: Performed By: #### % 88494, 606, 809, 5363, 64359, 4420, 249, 6399 #### [facility] [address] [place], [place] [address] Timekeeper: Rikki Alexander MD #### 57621, 6085 #### [facility]/[place] [id number] [facility] [place], [place] Timekeeper: Walter Bearden M.D.,PhD Sodium [Moles/Vol] 137 mmol/L Normal 135-146 [facility] Comment on above: Performed By: #### % 67335, 606, 809, 5363, 95471, 4420, 249, 6399 #### [facility] of [address], [address] [place], [place] [address] Timekeeper: Rikki Alexander MD #### 79594, 6085 #### [facility]/[place] [id number] [facility] [place], [place] Timekeeper: Walter Bearden M.D.,PhD Urea nitrogen [Mass/Vol] 18 mg/dL Normal 7-25 [facility] Comment on above: Performed By: #### % 87212, 606, 809, 5363, 54410, 4420, 249, 6399 #### [facility] of [address] Timekeeper: Rikki Alexander MD #### 01576, 6085 #### [facility]/[place] [id number] [facility] [place] Timekeeper: Walter Bearden M.D.,PhD LIPASEon 11-24-2024 Lipase [Catalytic activity/Vol] 26 U/L Normal 7-60 [facility] Comment on above: Performed By: #### % 92607, 606, 809, 5363, 61669, 4420, 249, 6399 #### [facility] of [address], [address] [place] [address] Timekeeper: Rikki Alexander MD #### 06357, 6085 #### [facility]/[place] [id number] [facility] [address] [place], [place] Timekeeper: Walter Bearden M.D.,PhD PSA, TOTALon 11-24-2024 PSA, TOTAL 0.42 ng/mL Normal < OR = 4.00 [facility] Comment on above: Result Comment: The total PSA value from this assay system is standardized against the WHO standard. The test result will be approximately 20% lower when compared to the equimolar-standardized total PSA (Rodrigue Lowman). Comparison of serial PSA results should be interpreted with this fact in mind. This test was performed using the Siemens chemiluminescent method. Values obtained from different assay methods cannot be used interchangeably. PSA levels, regardless of value, should not be interpreted as absolute evidence of the presence or absence of disease. Performed By: #### % 72360, 606, 809, 5363, 16525, 4420, 249, 6399 #### [facility] [place] [address] Timekeeper: Rikki Alexander MD #### 79530, 6085 #### [facility] [place], [place] Timekeeper: Walter Bearden M.D.,PhD RHEUMATOID FACTORon 11-25-19 25 RHEUMATOID FACTOR 10 IU/mL Normal <14 [facility] Comment on above: Performed By: #### % 30385, 606, 809, 5363, 70177, 4420, 249, 6399 #### [facility] [address], [address] [place] [address] Timekeeper: Rikki Alexander MD #### 09633, 6085 #### [facility] [address] [facility] [place], [place] Timekeeper: Walter Bearden M.D.,PhD SED RATE BY MONISHA Maldonado 11-24-2024 SED RATE BY MONISHA HERMOSILLOREN 11 mm/h Normal < OR = 20 [facility] Comment on above: Performed By: #### % 18684, 606, 809, 5363, 67598, 4420, 249, 6399 #### [facility] of [address], [address] [place], [place] [id number] Timekeeper: Rikki Alexander MD #### 10197, 6085 #### [facility]/[address] [place], [place] Timekeeper: Walter Bearden M.D.,PhD COMPREHENSIVE METABOLIC PANE [facility] 10-28-2024 Albumin [Mass/Vol] 4.6 g/dL Normal 3.6-5.1 [facility] Comment on above: Performed By: #### % 95937, 606, 809, 5363, 23936, 4420, 249, 6399 #### [facility] of [address], [address] [place], [place] [address] Timekeeper: Rikki Alexander MD #### 44122, 6085 #### [facility]/[address] [place], [place] Timekeeper: Walter Bearden M.D.,PhD Albumin/Globulin [Mass ratio] 1.7 {ratio} Normal 1.0-2.5 [facility] Comment on above: Performed By: #### % 23610, 606, 809, 5363, 05555, 4420, 249, 6399 #### [facility] of [address], [address] [place], [place] [address] Timekeeper: Rikki Alexander MD #### 68685, 6085 #### [facility]/[address] [place], [place] Timekeeper: Walter Bearden M.D.,PhD ALP [Catalytic activity/Vol] 75 U/L Normal 35-144 [facility] Comment on above: Performed By: #### % 29644, 606, 809, 5363, 08496, 4420, 249, 6399 #### [facility] of [address], [address] [place], [place] [address] Timekeeper: Rikki Alexander MD #### 53155, 6085 #### [facility]/[address] [place], [place] Timekeeper: Walter Bearden M.D.,PhD ALT [Catalytic activity/Vol] 48 U/L High 9-46 [facility] Comment on above: Performed By: #### % 45251, 606, 809, 5363, 09737, 4420, 249, 6399 #### [facility] of [address], [address] [place], [place] [address] Timekeeper: Rikki Alexander MD #### 64668, 6085 #### [facility]/[place] [id number] [facility] [place], [place] Timekeeper: Walter Bearden M.D.,PhD AST [Catalytic activity/Vol] 40 U/L High 10-35 [facility] Comment on above: Performed By: #### % 52414, 606, 809, 5363, 23795, 4420, 249, 99 #### [facility] of [address], [address] [place], [place] [address] Timekeeper: Rikki Alexander MD #### 77341, 6085 #### [facility]/[address] [place], [place] Timekeeper: Walter Bearden M.D.,PhD Bilirubin [Mass/Vol] 0.7 mg/dL Normal 0.2-1.2 [facility] Comment on above: Performed By: #### % 20339, 606, 809, 5363, 60731, 4420, 249, 6399 #### [facility] of [address], [address] [place], [place] [address] Timekeeper: Rikki Alexander MD #### 78393, 6085 #### [facility]/[place] [id number] [facility] [place], [place] Timekeeper: Walter Bearden M.D.,PhD BUN/CREATININE RATIO SEE NOTE: Normal 6-22 [facility] Comment on above: Result Comment: Not Reported: BUN and Creatinine are within reference range. Performed By: #### % 90327, 606, 809, 5363, 11453, 4420, 249, 6399 #### [facility] [address], [address] [place], [place] [id number] Timekeeper: Rikki Alexander MD #### 43590, 6085 #### [facility]/[place] [id number] [facility] [place], [place] Timekeeper: Walter Bearden M.D.,PhD Calcium [Mass/Vol] 9.8 mg/dL Normal 8.6-10.3 [facility] Comment on above: Performed By: #### % 04087, 606, 809, 5363, 45917, 4420, 249, 6399 #### [facility] [address], [address] [place], [place] [address] Timekeeper: Rikki Aelxander MD #### 55789, 6085 #### [facility]/[place] [id number] [facility] [place], [place] Timekeeper: Walter Bearden M.D.,PhD Chloride [Moles/Vol] 100 mmol/L Normal 98-110 [facility] Comment on above: Performed By: #### % 20123, 606, 809, 5363, 82581, 4420, 249, 6399 #### [facility] [address], [address] [place], [place] [address] Timekeeper: Rikki Alexander MD #### 34931, 6085 #### [facility]/[place] [id number] [facility] [place] Timekeeper: Walter Bearden M.D.,PhD CO2 [Moles/Vol] 20 mmol/L Normal 20-32 [facility] Comment on above: Performed By: #### % 48147, 606, 809, 5363, 22867, 4420, 249, 6399 #### [facility] of [address], [address] [place], [place] [address] Timekeeper: Rikki Alexander MD #### 09479, 6085 #### [facility]/[address] [place], [place] Timekeeper: Walter Bearden M.D.,PhD Creatinine [Mass/Vol] 0.80 mg/dL Normal 0.70-1.30 [facility] Comment on above: Performed By: #### % 21982, 606, 809, 5363, 07668, 4420, 249, 6399 #### [facility] of [address], [address] [place], [place] [address] Timekeeper: Rikki Alexander MD #### 84195, 6085 #### [facility]/[address] [place] Timekeeper: Walter Bearden M.D.,PhD GFR/1.73 sq M.predicted among non-blacks MDRD (S/P/Bld) [Vol rate/Area] 103 mL/min/{1.73_m2} Normal > OR = 60 [facility] Comment on above: Performed By: #### % 32155, 606, 809, 5363, 24921, 4420, 249, 6399 #### [facility] of [address], [address] [place], [place] [address] Timekeeper: Rikki Alexander MD #### 50977, 6085 #### [facility]/[place] [id number] [facility] [place], [place] Timekeeper: Walter Bearden M.D.,PhD Globulin (S) [Mass/Vol] 2.7 g/dL Normal 1.9-3.7 [facility] Comment on above: Performed By: #### % 79883, 606, 809, 5363, 10100, 4420, 249, 6399 #### [facility] of [address], [address] [place], [place] [address] Timekeeper: Rikki Alexander MD #### 20033, 6085 #### [facility] [place] Timekeeper: Walter Bearden M.D.,PhD Glucose [Mass/Vol] 145 mg/dL High 65-99 [facility] Comment on above: Result Comment: Fasting reference interval For someone without known diabetes, a glucose value >125 mg/dL indicates that they may have diabetes and this should be confirmed with a follow-up test. Performed By: #### % 49531, 606, 809, 5363, 47023, 4420, 249, 6399 #### [facility] [address], [address] [place], [place] [address] Timekeeper: Rikki Alexander MD #### 66807, 6085 #### [facility] [place] Timekeeper: Walter Bearden M.D.,PhD Potassium [Moles/Vol] 4.2 mmol/L Normal 3.5-5.3 [facility] Comment on above: Performed By: #### % 79237, 606, 809, 5363, 00421, 4420, 249, 6399 #### [facility] [address], [address] [place] [address] Timekeeper: Rikki Alexander MD #### 21048, 6085 #### [facility]/[place] [id number] [facility] [place] Timekeeper: Walter Bearden M.D.,PhD Protein [Mass/Vol] 7.3 g/dL Normal 6.1-8.1 [facility] Comment on above: Performed By: #### % 75221, 606, 809, 5363, 66611, 4420, 249, 6399 #### [facility] [address], [address] [place] [address] Timekeeper: Rikki Alexander MD #### 32268, 6085 #### [facility]/[place] [id number] [facility] [place] Timekeeper: Walter Bearden M.D.,PhD Sodium [Moles/Vol] 137 mmol/L Normal 135-146 [facility] Comment on above: Performed By: #### % 46923, 606, 809, 5363, 66622, 4420, 249, 6399 #### [facility] of [address], [address] [place], [place] [address] Timekeeper: Rikki Alexander MD #### 62313, 6085 #### [facility]/[place] [id number] [facility] [place] Timekeeper: Walter Bearden M.D.,PhD Urea nitrogen [Mass/Vol] 16 mg/dL Normal 7-25 [facility] Comment on above: Performed By: #### % 51655, 606, 809, 5363, 27050, 4420, 249, 6399 #### [facility] of [address], [address] [place], [place] [address] Timekeeper: Rikki Alexandre MD #### 58216, 6085 #### [facility]/[address] [place] Timekeeper: Walter Bearden M.D.,PhD LIPID PANEL, [facility] [place] 040 Cholesterol [Mass/Vol] 276 mg/dL High <200 [facility] Comment on above: Performed By: #### % 05678, 606, 809, 5363, 54860, 4420, 249, 6399 #### [facility] [place] [id number] Timekeeper: Rikki Alexander MD #### [id number], 6085 #### [facility] [id number] [facility] [place] Timekeeper: Walter Bearden M.D.,PhD Cholesterol in HDL [Mass/Vol] 49 mg/dL Normal > OR = 40 [facility] Comment on above: Performed By: #### % 33379, 606, 809, 5363, 74073, 4420, 249, 6399 #### [facility] [address], [address] [place], [place] [address] Timekeeper: Rikki Alexander MD #### 04279, 6085 #### [facility] [id number] [facility] [place], [place] Timekeeper: Walter Bearden M.D.,PhD Cholesterol.total/Cho lesterol in HDL [Mass ratio] 5.6 {ratio} High <5.0 [facility] Comment on above: Performed By: #### % 29313, 606, 809, 5363, 79937, 4420, 249, 6399 #### [facility] [address], [address] [place] [address] Timekeeper: Rikki Alexander MD #### 00487, 6085 #### [facility]/[address] [place], [place] Timekeeper: Walter Bearden M.D.,PhD LDL-CHOLESTEROL Normal [facility] Comment on above: Result Comment: LDL cholesterol not calculated. Triglyceride levels greater than 400 mg/dL invalidate calculated LDL results. Reference range: <100 Desirable range <100 mg/dL for primary prevention; <70 mg/dL for patients with CHD or diabetic patients with > or = 2 CHD risk factors. LDL-C is now calculated using the Dylan calculation, which is a validated novel method providing better accuracy than the Friedewald equation in the estimation of LDL-C. Yoel PRATT et al. PATEL. 2013;310(19): 3104-1619 (http://education.[employer]/faq/SBQ199) Performed By: #### % 78016, 606, 809, 5363, 91039, 4420, 249, 6399 #### [facility] [address], [address] [place] [address] Timekeeper: Rikki Alexander MD #### [phone], 6085 #### [facility] [id number] [facility] [place], [place] Timekeeper: Walter Bearden M.D.,PhD NON HDL CHOLESTEROL 227 mg/dL (calc) High <130 [facility] Comment on above: Result Comment: Non- HDL level > or = 220 is very high and may indicate genetic familial hypercholesterolemia (FH). Clinical assessment and measurement of blood lipid levels should be considered for all first-degree relatives of patients with an FH diagnosis. For patients with diabetes plus 1 major ASCVD risk factor, treating to a non-HDL-C goal of <100 mg/dL (LDL-C of <70 mg/dL) is considered a therapeutic option. Performed By: #### % 52388, 606, 809, 5363, 92958, 4420, 249, 6399 #### [facility] [address], [address] [place] [address] Timekeeper: Rikki Alexander MD #### 76912, 6085 #### [facility] [address] [facility] [place], [place] Timekeeper: Walter Bearden M.D.,PhD Triglyceride [Mass/Vol] 871 mg/dL High <150 [facility] Comment on above: Result Comment: If a non-fasting specimen was collected, consider repeat triglyceride testing on a fasting specimen if clinically indicated. Ewing et al. J. of Clin. Lipidol. 2015;9:129-169. There is increased risk of pancreatitis when the triglyceride concentration is very high (> or = 500 mg/dL, especially if > or = 1000 mg/dL). Ewing et al. J. of Clin. Lipidol. 2015;9:129-169. Performed By: #### % 26282, 606, 809, 5363, 74239, 4420, 249, 6399 #### [facility] [address], [address] [place] [address] Timekeeper: Rikki Alexander MD #### [id number], 6085 #### [facility] [address] [facility] [place], [place] Timekeeper: Walter Bearden M.D.,PhD PSA, TOTALon 10-28-2024 PSA, TOTAL 0.62 ng/mL Normal < OR = 4.00 [facility] Comment on above: Result Comment: The total PSA value from this assay system is standardized against the WHO standard. The test result will be approximately 20% lower when compared to the equimolar-standardized total PSA (Rodrigue Abhay). Comparison of serial PSA results should be interpreted with this fact in mind. This test was performed using the Siemens chemiluminescent method. Values obtained from different assay methods cannot be used interchangeably. PSA levels, regardless of value, should not be interpreted as absolute evidence of the presence or absence of disease. Performed By: #### % 83138, 606, 809, 5363, 80712, 4420, 249, 6399 #### [facility] [address], [address] [place] [address] Timekeeper: Rikki Alexander MD #### [id number], 6085 #### [facility] [address] [facility] [place], [place] Timekeeper: Walter Bearden M.D.,PhD VITAMIN D,25-OH,TOTAL,IAon 0 10-28-2024 VITAMIN D,25-OH,TOTAL,IA 35 ng/mL Normal 30-100 [facility] Comment on above: Result Comment: Tiffani min D Status 25-OH Vitamin D: Deficiency: <20 ng/mL Insufficiency: 20 - 29 ng/mL Optimal: > or = 30 ng/mL For 25-OH Vitamin D testing on patients on D2-supplementation and patients for whom quantitation of D2 and D3 fractions is required, the QuestAssureD(TM) 25-OH VIT D, (D2,D3), LC/MS/MS is recommended: order code 71940 (patients >2yrs). See Note 1 Note 1 For additional information, please refer to http://education.[employer]/faq/THT304 (This link is being provided for informational/ educational purposes only.) Performed By: #### % 95339, 606, 809, 5363, 75023, 4420, 249, 6399 #### [facility] [address], [address] [place] [address] Timekeeper: Rikki Alexander MD #### 56077, 6085 #### [facility] [address] [facility] [place], [place] Timekeeper: Walter Bearden M.D.,PhD LABORATORYOrdered By: Gennaro Hamlin on 08-17-2024 Albumin DL <= 20 mg/L (U) [Mass/Vol] 9416 mcg/dL Invalid Interpretation Code AO ADM SS Albumin/Creatinine DL <= 20 mg/L (U) [Mass ratio] 165 mcg/mg High 0 - 30 mcg/mg AO Chemistry S Creatinine (U) [Mass/Vol] 57.0 mg/dL Invalid Interpretation Code AO ADM SS MALBRon 08-17-2024 U Creatinine 57.0 mg/dL Normal [facility] Comment on above: Performed By: #### M ALBR #### [place] [address] [place], [place] [address] U Microalb 9416 mcg/dL Normal [facility] Comment on above: Performed By: #### M ALBR #### [facility] [address] [place] [address], [place] [address] U Ratio Alb/Cre 165 mcg/mg High 0-30 [facility] Comment on above: Performed By: #### M ALBR #### [place] [address] [place], [place] [address] Abdomen Completeon 5 Abdomen Complete [facility] [address] [place], [place] [id number] Abdomen Complete MR#: [id number] Acct: [id number] Name: AGA ADAN Rep #: [id number] : 1965 M 59 From: Alton brito MD PCP: Dr. Alba Tena, DO Status: REG CLI Study: Abdomen Complete Date of Exam: 08/14/24 Exam# [id number] Ordering Dr: Sarkis Alvarez MD [id number] STUDY: ABDOMINAL ULTRASOUND REASON FOR EXAM: Male, 59 years old. RUQ PAIN, CHRONIC PANCREATITIS TECHNIQUE: Transabdominal ultrasound was performed with real-time and static blandon scale imaging. TECHNICAL QUALITY: Adequate. COMPARISON: Comparison is made with prior CT scan the abdomen dated September 12, 2020. FINDINGS: Liver: The liver is enlarged and measures 19.9 cm. There is increased echogenicity consistent with fatty infiltration. The bile ducts are within normal limits. There is hepatic color flow. The direction of portal flow is hepatopetal. There is no demonstrated mass lesion. Gallbladder: The patient is status post cholecystectomy. Common Bile Duct (C.B.D.): The common bile duct measures 6 mm. Pancreas: Normal size of the head, body and tail of the pancreas. There is normal echogenicity of the pancreas. There is no demonstrated pancreatic mass or cyst. Spleen: There is splenomegaly. The spleen measures 12.2 cm x 5.6 cm x 5 cm. Right Kidney: Normal size of the right kidney. The right kidney measures 11.4 cm x 6 cm x 5.2 cm. Normal renal cortex. The right cortex measures 1.5 cm. There is no demonstrated renal mass or cyst. There is no right hydronephrosis. Left Kidney: Normal size of the left kidney. The left kidney measures 12.6 cm x 6.6 cm x 6.5 cm. Normal renal cortex. The left cortex measures 2.0 cm. There is no demonstrated renal mass or cyst. There is no left hydronephrosis. Aorta: Obscured by bowel gas. I.V.C.: The IVC is patent. There is no ascites. US/Abdomen Complete IMPRESSION: Hepatosplenomegaly. Fatty infiltration of the liver. Status post cholecystectomy. Electronically Signed: Alton Cortes MD at 14:12 EST , CC: Dr. Alba Tena DO; Dr. 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, [address] Hematocrit (Bld) [Volume fraction] 42.2 % Normal 40-54 [facility] Comment on above: Performed By: #### L 100.0500, L500.4050 #### [facility] [address] [place], [address] Hemoglobin (Bld) [Mass/Vol] 14.5 g/dL Normal 13.0-16.5 [facility] Comment on above: Performed By: #### L 100.0500, L500.4050 #### [facility] [address] [place], [address] MCH (RBC) [Entitic mass] 32.3 pg High 27.0-32.0 [facility] Comment on above: Performed By: #### L 100.0500, L500.4050 #### [facility] [address] [place], [address] MCHC (RBC) [Mass/Vol] 34.4 g/dL Normal 32-36 [facility] Comment on above: Performed By: #### L 100.0500, L500.4050 #### [facility] [address] [place], [address] MCV (RBC) [Entitic vol] 94.0 fL Normal 80-94 [facility] Comment on above: Performed By: #### L 100.0500, L500.4050 #### [facility] [address] [place], [address] Platelet mean volume (Bld) [Entitic vol] 9.3 fL Normal 6.2-12.0 [facility] Comment on above: Performed By: #### L 100.0500, L500.4050 #### [facility] [address] [place], [address] Platelets (Bld) [#/Vol] 191 10*3/uL Normal 150-450 [facility] Comment on above: Performed By: #### L 100.0500, L500.4050 #### [facility] [address] [place], [address] RBC (Bld) [#/Vol] 4.49 10*6/uL Low 4.6-6.2 [facility] Comment on above: Performed By: #### L 100.0500, L500.4050 #### [facility] [address] [place], [address] RDW SD 44.1 fl High 35.1-43.9 [facility] Comment on above: Performed By: #### L 100.0500, L500.4050 #### [facility] [address] [place], [address] WBC (Bld) [#/Vol] 4.5 10*3/uL Normal 4.4-11.0 [facility] Comment on above: Performed By: #### L 100.0500, L500.4050 #### [facility] [address] [place], [address] Comprehensive Metabolic Prof ilon 08-09-2024 ALB Normal 3.2-5.0 [facility] Comment on above: Result Comment: HEMO LYZED AND LIPEMIC Performed By: #### L 100.0500, L500.4050 #### [facility] [address] [place], [address] ALK P Normal 45-117 [facility] Comment on above: Result Comment: HEMO LYZED AND LIPEMIC Performed By: #### L 100.0500, L500.4050 #### [facility] [address] [place], [address] ALT Normal 16-61 [facility] Comment on above: Result Comment: HEMO LYZED AND LIPEMIC Performed By: #### L 100.0500, L500.4050 #### [facility] [address] [place], [address] AST Normal 15-37 [facility] Comment on above: Result Comment: HEMO LYZED AND LIPEMIC Performed By: #### L 100.0500, L500.4050 #### [facility] [address] [place], [address] BUN Normal 7-18 [facility] Comment on above: Result Comment: HEMO LYZED AND LIPEMIC Performed By: #### L 100.0500, L500.4050 #### [facility] [address] [place], [address] BUN/CRE Normal 10-20 [facility] Comment on above: Result Comment: HEMO LYZED AND LIPEMIC Performed By: #### L 100.0500, L500.4050 #### [facility] [address] [place], [address] CA,Total Normal 8.5-10.1 [facility] Comment on above: Result Comment: HEMO LYZED AND LIPEMIC Performed By: #### L 100.0500, L500.4050 #### [facility] [address] [place], [address] CL Normal 98-107 [facility] Comment on above: Result Comment: HEMO LYZED AND LIPEMIC Performed By: #### L 100.0500, L500.4050 #### [facility] [address] [place], [address] CO2 Normal 21.0-32.0 [facility] Comment on above: Result Comment: HEMO LYZED AND LIPEMIC Performed By: #### L 100.0500, L500.4050 #### [facility] [address] [place], [address] CREAT,SERUM Normal 0.70-1.30 [facility] Comment on above: Result Comment: HEMO LYZED AND LIPEMIC Performed By: #### L 100.0500, L500.4050 #### [facility] [address] [place], [address] EST GFR Normal >60 [facility] Comment on above: Result Comment: HEMO LYZED AND LIPEMIC Performed By: #### L 100.0500, L500.4050 #### [facility] [address] [place], [address] EST GFR - AA Normal >60 [facility] Comment on above: Result Comment: HEMO LYZED AND LIPEMIC Performed By: #### L 100.0500, L500.4050 #### [facility] [address] [place], [address] GAP Normal 5-15 [facility] Comment on above: Result Comment: HEMO LYZED AND LIPEMIC Performed By: #### L 100.0500, L500.4050 #### [facility] [address] [place], [address] GLU Normal 74-106 [facility] Comment on above: Result Comment: HEMO LYZED AND LIPEMIC Performed By: #### L 100.0500, L500.4050 #### [facility] [address] [place], [address] Potassium Normal 3.5-5.1 [facility] Comment on above: Result Comment: HEMO LYZED AND LIPEMIC Performed By: #### L 100.0500, L500.4050 #### [facility] [address] [place], [address] T BILI Normal 0.20-1.00 [facility] Comment on above: Result Comment: HEMO LYZED AND LIPEMIC Performed By: #### L 100.0500, L500.4050 #### [facility] [address] [place], [address] T PROT Normal 6.4-8.2 [facility] Comment on above: Result Comment: HEMO LYZED AND LIPEMIC Performed By: #### L 100.0500, L500.4050 #### [facility] [address] [place], [address] Comprehensive Metabolic Profil Normal 136-145 [facility] Comment on above: Result Comment: HEMO LYZED AND LIPEMIC Performed By: #### L 100.0500, L500.4050 #### [facility] [address] [place], [address] CBC (INCLUDES DIFF/PLT)on Basophils (Bld) [#/Vol] 0.007 10*3/uL Normal 0-200 [facility] Comment on above: Performed By: #### % 47224, 606, 809, 5363, 25585, 4420, 249, 6399 #### [facility] [address] [facility], [address] [place] [address] Timekeeper: Rikki Alexander MD #### 39473, 4277 #### [facility] [address] [facility] [place] [address] Timekeeper: Walter Bearden M.D.,PhD Basophils/100 WBC (Bld) 0.1 % Normal [facility] Comment on above: Performed By: #### % 98332, 606, 809, 5363, 92866, 4420, 249, 6399 #### [facility] of [address], [address] [place], [place] [address] Timekeeper: Rikki Alexander MD #### 51168, 6085 #### [facility] [id number] [facility] [place], [place] Timekeeper: Walter Bearden M.D.,PhD COMMENT Normal [facility] Comment on above: Result Comment: We received your handwritten test order and performed CBC with differential (includes hemogram, platelet count and WBC with automated differential). If you intended to order a CBC without differential or another test, please contact us at [phone] ( [phone] to adjust the billing appropriately. Performed By: #### % 82531, 606, 809, 5363, 56187, 4420, 249, 6399 #### [facility] of [address], [address] [place], [place] [address] Timekeeper: Rikki Alexander MD #### 11767, 6085 #### [facility] [address] [place] [address] [place], [place] Timekeeper: Walter Bearden M.D.,PhD Eosinophils (Bld) [#/Vol] 0.04 10*3/uL Normal 15-500 [facility] Comment on above: Performed By: #### % 43430, 606, 809, 5363, 03324, 4420, 249, 6399 #### [facility] of [address], [address] [place] [address] Timekeeper: Rikki Alexander MD #### 33847, 6085 #### [facility] [place], [place] Timekeeper: Walter Bearden M.D.,PhD Eosinophils/100 WBC (Bld) 0.6 % Normal [facility] Comment on above: Performed By: #### % 34597, 606, 809, 5363, 16309, 4420, 249, 6399 #### [facility] [place] [address] [address] , [address] [place], [place] [address] Timekeeper: Rikki Alexander MD #### 68100, 6085 #### [facility]/[address] [place], [place] Timekeeper: Walter Bearden M.D.,PhD Erythrocyte distribution width (RBC) [Ratio] 13.1 % Normal 11.0-15.0 [facility] Comment on above: Performed By: #### % 14857, 606, 809, 5363, 22133, 4420, 249, 6399 #### [facility] of [address], [address] [place], [place] [address] Timekeeper: Rikki Alexander MD #### 25631, 6085 #### [facility]/[address] [place], [place] Timekeeper: Walter Bearden M.D.,PhD Hematocrit (Bld) [Volume fraction] 41.8 % Normal 38.5-50.0 [facility] Comment on above: Performed By: #### % 46198, 606, 809, 5363, 58949, 4420, 249, 6399 #### [facility] of [address], [address] [place], [place] [address] Timekeeper: Rikki Alexander MD #### 69446, 6085 #### [facility]/[address] [place], [place] Timekeeper: Walter Bearden M.D.,PhD Hemoglobin (Bld) [Mass/Vol] 13.9 g/dL Normal 13.2-17.1 [facility] Comment on above: Performed By: #### % 87154, 606, 809, 5363, 27963, 4420, 249, 6399 #### [facility] of [address], [address] [place], [place] [address] Timekeeper: Rikki Alexander MD #### 82909, 6085 #### [facility]/[address] [place], [place] Timekeeper: Walter Bearden M.D.,PhD Lymphocytes (Bld) [#/Vol] 1.32 10*3/uL Normal 850-3900 [facility] Comment on above: Performed By: #### % 62335, 606, 809, 5363, 52188, 4420, 249, 6399 #### [facility] [place] [address] , [address] [place], [place] [address] Timekeeper: Rikki Alexander MD #### 05321, 6085 #### [facility] [id number] [facility] [place], [place] Timekeeper: Walter Bearden M.D.,PhD Lymphocytes/100 WBC (Bld) 19.7 % Normal [facility] Comment on above: Performed By: #### % 40059, 606, 809, 5363, 29607, 4420, 249, 6399 #### [facility] of [address], [address] [place], [place] [address] Timekeeper: Rikki Alexander MD #### 56537, 6085 #### [facility] [place], [place] Timekeeper: Walter Bearden M.D.,PhD MCH (RBC) [Entitic mass] 31.4 pg Normal 27.0-33.0 [facility] Comment on above: Performed By: #### % 62069, 606, 809, 5363, 54979, 4420, 249, 6399 #### [facility] [address] , [address] [place] [address] Timekeeper: Rikki Alexander MD #### 20143, 6085 #### [facility] [id number] [facility] [place] [address] Timekeeper: Walter Bearden M.D.,PhD MCHC (RBC) [Mass/Vol] 33.3 g/dL Normal 32.0-36.[address] [facility] Comment on above: Result Comment: For adults, a slight decrease in the calculated MCHC value (in the range of 30 to 32 g/dL) is most likely not clinically significant; however, it should be interpreted with caution in correlation with other red cell parameters and the patient's clinical condition. Performed By: #### % 62817, 606, 809, 5363, 21705, 4420, 249, 6399 #### [facility] [address], [address] [place], [place] [address] Timekeeper: Rikki Alexander MD #### 50628, 6085 #### [facility] [id number] [facility] [place] Timekeeper: Walter Bearden M.D.,PhD MCV (RBC) [Entitic vol] 94.6 fL Normal 80.0-100.0 [facility] Comment on above: Performed By: #### % 26276, 606, 809, 5363, 20044, 4420, 249, 6399 #### [facility] [address], [address] [place], [place] [address] Timekeeper: Rikki Alexander MD #### 69994, 6085 #### [facility] [id number] [facility] [place] Timekeeper: Walter Bearden M.D.,PhD Monocytes (Bld) [#/Vol] 0.503 10*3/uL Normal 200-950 [facility] Comment on above: Performed By: #### % 41095, 606, 809, 5363, 04445, 4420, 249, 6399 #### [facility] of [address], [address] [place], [place] [address] Timekeeper: Rikki Alexander MD #### 51763, 6085 #### [facility] [id number] [facility] [address] [place] Timekeeper: Walter Bearden M.D.,PhD Monocytes/100 WBC (Bld) 7.5 % Normal [facility] Comment on above: Performed By: #### % 47770, 606, 809, 5363, 70042, 4420, 249, 6399 #### [facility] of [address], [address] [place], [place] [address] Timekeeper: Rikki Alexander MD #### 24315, 6085 #### [facility] [id number] [facility] [place] Timekeeper: Walter Bearden M.D.,PhD Neutrophils (Bld) [#/Vol] 4.831 10*3/uL Normal 8399-6635 [facility] Comment on above: Performed By: #### % 27650, 606, 809, 5363, 96152, 4420, 249, 6399 #### [facility] of [address], [address] [place], [place] [address] Timekeeper: Rikki Alexander MD #### 25317, 6085 #### [facility]/[place] [id number] [facility] [place] Timekeeper: Walter Bearden M.D.,PhD Neutrophils/100 WBC (Bld) 72.1 % Normal [facility] Comment on above: Performed By: #### % 55624, 606, 809, 5363, 51088, 4420, 249, 6399 #### [facility] of [address], [address] [place], [place] [address] Timekeeper: Rikki Alexander MD #### 14374, 6085 #### [facility] [place] Timekeeper: Walter Bearden M.D.,PhD Platelet mean volume (Bld) [Entitic vol] 9.3 fL Normal 7.5-12.5 [facility] Comment on above: Performed By: #### % 81118, 606, 809, 5363, 15457, 4420, 249, 6399 #### [facility] of [address], [address] [place] [address] Timekeeper: Rikki Alexander MD #### 55015, 6085 #### [facility]/[address] [place] Timekeeper: Walter Bearden M.D.,PhD Platelets ([facility]) [#/Vol] 205 10*3/uL Normal 140-400 [facility] Comment on above: Performed By: #### % 23178, 606, 809, 5363, 34809, 4420, 249, 6399 #### [facility] of [address] Timekeeper: Rikki Alexander MD #### 51260, 6085 #### [facility]/[address] [place] Timekeeper: Walter Bearden M.D.,PhD RBC (d) [#/Vol] 4.42 10*6/uL Normal 4.20-5.80 [facility] Comment on above: Performed By: #### % 52210, 606, 809, 5363, 33216, 4420, 249, 6399 #### [facility] [place] [address] Timekeeper: Rikki Alexander MD #### [id number], [id number] #### [facility]/[address] [place], [place] Timekeeper: Walter Bearden M.D.,PhD WBC ([facility]) [#/Vol] 6.7 10*3/uL Normal 3.8-10.8 [facility] Comment on above: Performed By: #### % 84995, 606, 809, 5363, 10770, 4420, 249, 6399 #### [facility] of [address], [address] [place], [place] [id number] Timekeeper: Rikki Alexander MD #### [id number], [id number] #### [facility]/[place] [id number] [facility] [place], [place] Timekeeper: Walter Bearden M.D.,PhD COMPREHENSIVE METABOLIC [facility] 05-19-2024 Albumin [Mass/Vol] 4.4 g/dL Normal 3.6-5.1 [facility] Comment on above: Performed By: #### % 81614, 606, 809, 5363, 20331, 4420, 249, 6399 #### [facility] of [address], [address] [place] [address] Timekeeper: Rikki Alexander MD #### [id number], [id number] #### [facility]/[place] [id number] [facility] [place], [place] Timekeeper: Walter Bearden M.D.,PhD Albumin/Globulin [Mass ratio] 2.0 {ratio} Normal 1.0-2.5 [facility] Comment on above: Performed By: #### % 90747, 606, 809, 5363, 18140, 4420, 249, 6399 #### [facility] of [address], [address] [place], [place] [id number] Timekeeper: Rikki Alexander MD #### [id number], [id number] #### [facility]/[address] [place], [place] Timekeeper: Walter Bearden M.D.,PhD ALP [Catalytic activity/Vol] 60 U/L Normal 35-144 [facility] Comment on above: Performed By: #### % 39093, 606, 809, 5363, 05768, 4420, 249, 6399 #### [facility] of [address], [address] [place], [place] [id number] Timekeeper: Rikki Alexander MD #### [id number], 6085 #### [facility]/[address] [place], [place] Timekeeper: Walter Bearden M.D.,PhD ALT [Catalytic activity/Vol] 34 U/L Normal 9-46 [facility] Comment on above: Performed By: #### % 77232, 606, 809, 5363, 17357, 4420, 249, 6399 #### [facility] of [address], [address] [place], [place] [address] Timekeeper: Rikki Alexander MD #### [id number], 6085 #### [facility]/[place] [id number] [facility] [place], [place] Timekeeper: Walter Bearden M.D.,PhD AST [Catalytic activity/Vol] 18 U/L Normal 10-35 [facility] Comment on above: Performed By: #### % 10058, 606, 809, 5363, 24757, 4420, 249, 99 #### [facility] of [address], [address] [place], [place] [address] Timekeeper: Rikki Alexander MD #### [id number], 6085 #### [facility] [address] [facility] [place], [place] Timekeeper: Walter Bearden M.D.,PhD Bilirubin [Mass/Vol] 0.8 mg/dL Normal 0.2-1.2 [facility] Comment on above: Performed By: #### % 87791, 606, 809, 5363, 55261, 4420, 249, 6399 #### [facility] of [address], [address] [place], [place] [address] Timekeeper: Rikki Alexander MD #### [id number], 6085 #### [facility] [place], [place] Timekeeper: Walter Bearden M.D.,PhD Calcium [Mass/Vol] 9.5 mg/dL Normal 8.6-10.3 [facility] Comment on above: Performed By: #### % 35286, 606, 809, 5363, 71047, 4420, 249, 6399 #### [facility] of [place] [address], [address] [place], [place] [id number] Timekeeper: Rikki Alexander MD #### [id number], 6085 #### [facility]/[address] [place], [place] Timekeeper: Walter Bearden M.D.,PhD Chloride [Moles/Vol] 98 mmol/L Normal 98-110 [facility] Comment on above: Performed By: #### % 69519, 606, 809, 5363, 96091, 4420, 249, 6399 #### [facility] of [address], [address] [place], [place] [address] Timekeeper: Rikki Alexander MD #### [id number], 6085 #### [facility]/[address] [place], [place] Timekeeper: Walter Bearden M.D.,PhD CO2 [Moles/Vol] 25 mmol/L Normal 20-32 [facility] Comment on above: Performed By: #### % 73013, 606, 809, 5363, 84753, 4420, 249, 6399 #### [facility] of [address], [address] [place], [place] [address] Timekeeper: Rikki Alexander MD #### [id number], 6085 #### [facility]/[address] [place], [place] Timekeeper: Walter Baerden M.D.,PhD Creatinine [Mass/Vol] 1.06 mg/dL Normal 0.70-1.[address] [facility] Comment on above: Performed By: #### % 58007, 606, 809, 5363, 32154, 4420, 249, 6399 #### [facility] of [place] [address], [address] Timekeeper: Rikki Alexander MD #### [id number], 6085 #### [facility]/[address] [place], [place] Timekeeper: Walter Bearden M.D.,PhD GFR/1.73 sq M.predicted among non-blacks MDRD (S/P/Bld) [Vol rate/Area] 81 mL/min/{1.73_m2} Normal > OR = 60 [facility] Comment on above: Performed By: #### % 06966, 606, 809, 5363, 06722, 4420, 249, 6399 #### [facility] [address] Timekeeper: Rikki Alexander MD #### [id number], 6085 #### [facility]/[address] [place], [place] Timekeeper: Walter Bearden M.D.,PhD Globulin (S) [Mass/Vol] 2.2 g/dL Normal 1.9-3.7 [facility] Comment on above: Performed By: #### % 83114, 606, 809, 5363, 81873, 4420, 249, 6399 #### [facility] [place] [id number] Timekeeper: Rikki Alexander MD #### [id number], 6085 #### [facility]/[address] [place], [place] Timekeeper: Walter Bearden M.D.,PhD Glucose [Mass/Vol] 240 mg/dL High 65-99 [facility] Comment on above: Result Comment: Fasting reference interval For someone without known diabetes, a glucose value >125 mg/dL indicates that they may have diabetes and this should be confirmed with a follow-up test. Performed By: #### % 04424, 606, 809, 5363, 98241, 4420, 249, 6399 #### [facility] [address] [place], [place] [id number] Timekeeper: Rikki Alexander MD #### [id number], 6085 #### [facility]/[place] [id number] [facility] [place], [place] Timekeeper: Walter Bearden M.D.,PhD Potassium [Moles/Vol] 4.2 mmol/L Normal 3.5-5.3 [facility] Comment on above: Performed By: #### % 07277, 606, 809, 5363, 41335, 4420, 249, 6399 #### [facility] of [address], [address] [place], [place] [address] Timekeeper: Rikki Alexander MD #### 37446, 6085 #### [facility]/[place] [id number] [facility] [place], [place] Timekeeper: Walter Bearden M.D.,PhD Protein [Mass/Vol] 6.6 g/dL Normal 6.1-8.1 [facility] Comment on above: Performed By: #### % 39558, 606, 809, 5363, 49946, 4420, 249, 6399 #### [facility] of [address], [address] [place], [place] [address] Timekeeper: Rikki Alexander MD #### 43277, 6085 #### [facility]/[place] [phone] [facility] [place] Timekeeper: Walter Bearden M.D.,PhD Sodium [Moles/Vol] 134 mmol/L Low 135-146 [facility] Comment on above: Performed By: #### % 56355, 606, 809, 5363, 38523, 4420, 249, 6399 #### [facility] of [address], [address] [place], [place] [address] Timekeeper: Rikki Alexander MD #### 64292, 6085 #### [facility]/[place] [id number] [facility] [place] Timekeeper: Walter Bearden M.D.,PhD Urea nitrogen [Mass/Vol] 27 mg/dL High 02-16 [facility] Comment on above: Performed By: #### % 14869, 606, 809, 5363, 17232, 4420, 249, 6399 #### [facility] [address], [address] [place], [place] [address] Timekeeper: Rikki Alexander MD #### 52072, 6085 #### [facility]/[address] [place], [place] Timekeeper: Walter Bearden M.D.,PhD Urea nitrogen/Creatinine [Mass ratio] 25 mg/mg High 01-14 [facility] Comment on above: Performed By: #### % 84184, 606, 809, 5363, 87504, 4420, 249, 6399 #### [facility] [address], [address] [place] [address] Timekeeper: Rikki Alexander MD #### [id number], 6085 #### [facility]/[address] [place], [place] Timekeeper: Walter Bearden M.D.,PhD HEMOGLOBIN A1con 05-19-2024 HEMOGLOBIN A1c 9.1 % of total Hgb High <5.7 [facility] Comment on above: Result Comment: For someone without known diabetes, a hemoglobin A1c value of 6.5% or greater indicates that they may have diabetes and this should be confirmed with a follow-up test. For someone with known diabetes, a value <7% indicates that their diabetes is well controlled and a value greater than or equal to 7% indicates suboptimal control. A1c targets should be individualized based on duration of diabetes, age, comorbid conditions, and other considerations. Currently, no consensus exists regarding use of hemoglobin A1c for diagnosis of diabetes for children. Performed By: #### % 32931, 606, 809, 5363, 83274, 4420, 249, 6399 #### [facility] [address], [address] [place], [place] [id number] Timekeeper: Rikki Alexander MD #### 70828, 6085 #### [facility]/[address] [place], [place] Timekeeper: Walter Bearden M.D.,PhD LIPID PANEL, [place] [address] Cholesterol [Mass/Vol] 216 mg/dL High <200 [facility] Comment on above: Order Comment: FASTI NG:YESFASTING: YES Performed By: #### % 79163, 606, 809, 5363, 77333, 4420, 249, 6399 #### [facility] of [address] Timekeeper: Rikki Alexander MD #### 72161, 6085 #### [facility]/[address] [place], [place] Timekeeper: Walter Bearden M.D.,PhD Cholesterol in HDL [Mass/Vol] 50 mg/dL Normal > OR = 40 [facility] Comment on above: Order Comment: FASTI NG:YESFASTING: YES Performed By: #### % 59434, 606, 809, 5363, 62653, 4420, 249, 6399 #### [facility] [place] [id number] Timekeeper: Rikki Alexander MD #### 92732, 6085 #### [facility]/[address] [place], [place] Timekeeper: Walter Bearden M.D.,PhD Cholesterol.total/Cho lesterol in HDL [Mass ratio] 4.3 {ratio} Normal <5.0 [facility] Comment on above: Order Comment: FASTI NG:YESFASTING: YES Performed By: #### % 02241, 606, 809, 5363, 34341, 4420, 249, 6399 #### [facility] of [address], [address] [place], [place] [id number] Timekeeper: Rikki Alexander MD #### 07336, 6085 #### [facility]/[place] [id number] [facility] [place], [place] Timekeeper: Walter Bearden M.D.,PhD LDL-CHOLESTEROL Normal [facility] Comment on above: Order Comment: FASTI NG:YESFASTING: YES Result Comment: LDL cholesterol not calculated. Triglyceride levels greater than 400 mg/dL invalidate calculated LDL results. Reference range: <100 Desirable range <100 mg/dL for primary prevention; <70 mg/dL for patients with CHD or diabetic patients with > or = 2 CHD risk factors. LDL-C is now calculated using the Dylan calculation, which is a validated novel method providing better accuracy than the Friedewald equation in the estimation of LDL-C. Yoel PRATT et al. PATEL. 2013;310(19): 9173-2593 (http://education.[employer]/faq/JGQ162) Performed By: #### % 03449, 606, 809, 5363, 73679, 4420, 249, 6399 #### [facility] [address], [address] [place], [place] [address] Timekeeper: Rikki Alexander MD #### 55328, 6085 #### [facility]/[place] [id number] [facility] [place], [place] Timekeeper: Walter Bearden M.D.,PhD NON HDL CHOLESTEROL 166 mg/dL (calc) High <130 [facility] Comment on above: Order Comment: FASTI NG:YESFASTING: YES Result Comment: For patients with diabetes plus 1 major ASCVD risk factor, treating to a non-HDL-C goal of <100 mg/dL (LDL-C of <70 mg/dL) is considered a therapeutic option. Performed By: #### % 99432, 606, 809, 5363, 36958, 4420, 249, 6399 #### [facility] [place] [address] [facility], [address] [place], [place] [address] Timekeeper: Rikki Alexander MD #### 16547, 6085 #### [facility] [address] [facility] [place], [place] Timekeeper: Walter Bearden M.D.,PhD Triglyceride [Mass/Vol] 507 mg/dL High <150 [facility] Comment on above: Order Comment: FASTI NG:YESFASTING: YES Result Comment: If a non-fasting specimen was collected, consider repeat triglyceride testing on a fasting specimen if clinically indicated. Ewing et al. J. of Clin. Lipidol. 2015;9:129-169. There is increased risk of pancreatitis when the triglyceride concentration is very high (> or = 500 mg/dL, especially if > or = 1000 mg/dL). Kaylin et al. J. of Clin. Lipidol. 2015;9:129-169. Performed By: #### % 47177, 606, 809, 5363, 47284, 4420, 249, 6399 #### [facility] [address], [address] [place], [place] [id number] Timekeeper: Rikki Alexander MD #### 94039, 6085 #### [facility]/[place] [id number] [facility] [place], [place] Timekeeper: Walter Bearden M.D.,PhD PSA, TOTALon 05-19-2024 PSA, TOTAL 0.37 ng/mL Normal < OR = 4.00 [facility] Comment on above: Result Comment: The total PSA value from this assay system is standardized against the WHO standard. The test result will be approximately 20% lower when compared to the equimolar-standardized total PSA (Rodrigue Abhay). Comparison of serial PSA results should be interpreted with this fact in mind. This test was performed using the Siemens chemiluminescent method. Values obtained from different assay methods cannot be used interchangeably. PSA levels, regardless of value, should not be interpreted as absolute evidence of the presence or absence of disease. Performed By: #### % 26484, 606, 809, 5363, 59113, 4420, 249, 6399 #### [facility] [address], [address] [place] [address] Timekeeper: Rikki Alexander MD #### 90157, 6085 #### [facility]/[address] [place], [place] Timekeeper: Walter Bearden M.D.,PhD TSHon 05-19-2024 TSH Qn 1.76 m[IU]/L Normal 0.40-4.50 [facility] Comment on above: Performed By: #### % 95537, 606, 809, 5363, 61760, 4420, 249, 6399 #### [facility] [address] [facility], [address] [place], [place] [address] Timekeeper: Rikki Alexander MD #### 15236, 6085 #### [facility] [place], [place] Timekeeper: Walter Bearden M.D.,PhD VITAMIN D,25-OH,TOTAL,IAon 1 VITAMIN D,25-OH,TOTAL,IA 26 ng/mL Low 30-100 [facility] Comment on above: Result Comment: Tiffani min D Status 25-OH Vitamin D: Deficiency: <20 ng/mL Insufficiency: 20 - 29 ng/mL Optimal: > or = 30 ng/mL For 25-OH Vitamin D testing on patients on D2-supplementation and patients for whom quantitation of D2 and D3 fractions is required, the QuestAssureD(TM) 25-OH VIT D, (D2,D3), LC/MS/MS is recommended: order code 93875 (patients >2yrs). See Note 1 Note 1 For additional information, please refer to http://education.[employer]/faq/MNE192 (This link is being provided for informational/ educational purposes only.) Performed By: #### % 78627, 606, 809, 5363, 25416, 4420, 249, 6399 #### [facility] [address] [facility], [address] [place] [id number] Timekeeper: Rikki Alexander MD #### 25410, 6085 #### [facility] [address] [facility] [place] [address] Timekeeper: Walter Bearden M.D.,PhD .Auto Diffon 01-21-2024 Basophil, Absolute 0.0 10 3/mcL Normal 0.0-0.2 [facility] ([place]) Comment on above: Performed By: #### G FR, PSA, VIDH, CMP, ANEU, ADIFF, A1C, LIPID, TSH, CBC #### [address] [address] Basophils/100 WBC (Bld) 0.4 % Normal 0.0-2.5 [facility] ([place]) Comment on above: Performed By: #### G FR, PSA, VIDH, CMP, ANEU, ADIFF, A1C, LIPID, TSH, CBC #### [address] [address] Eosinophil, Absolute 0.1 10 3/mcL Normal 0.0-0.4 [facility] Comment on above: Performed By: #### G FR, PSA, VIDH, CMP, ANEU, ADIFF, A1C, LIPID, TSH, CBC #### [address] [address] Eosinophils/100 WBC (Bld) 2.5 % Normal 0.0-7.0 [facility] ([place] Comment on above: Performed By: #### G FR, PSA, VIDH, CMP, ANEU, ADIFF, A1C, LIPID, TSH, CBC #### [address] [address] Lymphocyte, Absolute 1.0 10 3/mcL Normal 0.8-3.9 [facility] Comment on above: Performed By: #### G FR, PSA, VIDH, CMP, ANEU, ADIFF, A1C, LIPID, TSH, CBC #### [address] [address] Lymphocytes/100 WBC (Bld) 22.7 % Normal 10.0-50.0 [facility] ([place] Comment on above: Performed By: #### G FR, PSA, VIDH, CMP, ANEU, ADIFF, A1C, LIPID, TSH, CBC #### [address] [address] Monocyte, Absolute 0.4 10 3/mcL Normal 0.2-1.0 [facility] ([place] Comment on above: Performed By: #### G FR, PSA, VIDH, CMP, ANEU, ADIFF, A1C, LIPID, TSH, CBC #### [address] [address] Monocytes/100 WBC (Bld) 8.1 % Normal 1.7-13.0 [facility] ([place] Comment on above: Performed By: #### G FR, PSA, VIDH, CMP, ANEU, ADIFF, A1C, LIPID, TSH, CBC #### [address] [address] Neutrophils/100 WBC (Bld) 66.3 % Normal 37.0-80.0 [facility] ([place] Comment on above: Performed By: #### G FR, PSA, VIDH, CMP, ANEU, ADIFF, A1C, LIPID, TSH, CBC #### [address] [address] .GFRon 01-21-2024 GFR 111 ml/min/1.73sqm Normal [facility] ([place]) Comment on above: Result Comment: GFR Population mean for , Non- Americans Ages 20-29 = 116 mL/min/1.73 sq.m. Ages 30-39 = 107 mL/min/1.73 sq.m. Ages 40-49 = 99 mL/min/1.73 sq.m. Ages 50-59 = 93 mL/min/1.73 sq.m. Ages 60-69 = 85 mL/min/1.73 sq.m. Ages 70+ = 75 mL/min/1.73 sq.m. Chronic Kidney Disease: Less than 60 mL/min/1.73 square meters End Stage Renal Disease: Less than 15 mL/min/1.73 square meters Performed By: #### G FR, PSA, VIDH, CMP, ANEU, ADIFF, A1C, LIPID, TSH, CBC #### [address] [address] GFR Non- 92 ml/min/1.73sqm Normal [facility] ([place]) Comment on above: Result Comment: GFR Population mean for , Non- Americans Ages 20-29 = 116 mL/min/1.73 sq.m. Ages 30-39 = 107 mL/min/1.73 sq.m. Ages 40-49 = 99 mL/min/1.73 sq.m. Ages 50-59 = 93 mL/min/1.73 sq.m. Ages 60-69 = 85 mL/min/1.73 sq.m. Ages 70+ = 75 mL/min/1.73 sq.m. Chronic Kidney Disease: Less than 60 mL/min/1.73 square meters End Stage Renal Disease: Less than 15 mL/min/1.73 square meters Performed By: #### G FR, PSA, VIDH, CMP, ANEU, ADIFF, A1C, LIPID, TSH, CBC #### [address] [address] .NEUABSon 01-21-2024 Neutrophil, Absolute 2.9 10 3/mcL Normal 2.9-6.2 [facility] Comment on above: Performed By: #### G FR, PSA, VIDH, CMP, ANEU, ADIFF, A1C, LIPID, TSH, CBC #### [address] [address] B12on 01-21-2024 Cobalamin (Vitamin B12) [Mass/Vol] 374 pg/mL Normal 211-911 [facility] ([place]) Comment on above: Performed By: #### G FR, PSA, VIDH, CMP, ANEU, ADIFF, A1C, LIPID, TSH, CBC #### [address] [address] CBCon 01-21-2024 Erythrocyte distribution width (RBC) [Ratio] 12.9 % Normal 11.5-14.5 [facility] ([place] Comment on above: Performed By: #### G FR, PSA, VIDH, CMP, ANEU, ADIFF, A1C, LIPID, TSH, CBC #### [address] [address] Hematocrit (Bld) [Volume fraction] 40.9 % Low 42.0-52.0 [facility] ([place] Comment on above: Performed By: #### G FR, PSA, VIDH, CMP, ANEU, ADIFF, A1C, LIPID, TSH, CBC #### [address] [address] Hgb 14.3 G/dL Normal 14.0-18.0 [facility] ([place] Comment on above: Performed By: #### G FR, PSA, VIDH, CMP, ANEU, ADIFF, A1C, LIPID, TSH, CBC #### [address] [address] MCH (RBC) [Entitic mass] 32.8 pg High 27.0-31.2 [facility] ([place] Comment on above: Performed By: #### G FR, PSA, VIDH, CMP, ANEU, ADIFF, A1C, LIPID, TSH, CBC #### [address] [address] MCHC 35.0 G/dL Normal 31.8-35.4 [facility] ([place] Comment on above: Performed By: #### G FR, PSA, VIDH, CMP, ANEU, ADIFF, A1C, LIPID, TSH, CBC #### [address] [address] MCV (RBC) [Entitic vol] 93.7 fL Normal 80.0-94.0 [facility] ([place] Comment on above: Performed By: #### G FR, PSA, VIDH, CMP, ANEU, ADIFF, A1C, LIPID, TSH, CBC #### [address] [address] Platelet 160 10 3/mcL Normal 130-400 [facility] ([place] Comment on above: Performed By: #### G FR, PSA, VIDH, CMP, ANEU, ADIFF, A1C, LIPID, TSH, CBC #### [address] [address] Platelet mean volume (Bld) [Entitic vol] 7.4 fL Normal 7.4-10.4 [facility] ([place] Comment on above: Performed By: #### G FR, PSA, VIDH, CMP, ANEU, ADIFF, A1C, LIPID, TSH, CBC #### [address] [address] RBC 4.37 10 6/mcL Normal 4.04-6.13 [facility] ([place] Comment on above: Performed By: #### G FR, PSA, VIDH, CMP, ANEU, ADIFF, A1C, LIPID, TSH, CBC #### [address] [address] WBC 4.4 10 3/mcL Low 4.6-10.8 [facility] ([place] Comment on above: Performed By: #### G FR, PSA, VIDH, CMP, ANEU, ADIFF, A1C, LIPID, TSH, CBC #### [address] [address] CMPon 01-21-2024 Albumin Level 4.2 G/dL Normal 3.5-5.0 [facility] ([place] Comment on above: Performed By: #### G FR, PSA, VIDH, CMP, ANEU, ADIFF, A1C, LIPID, TSH, CBC #### [address] [address] Albumin/Globulin [Mass ratio] 1.3 {ratio} Normal 1.1-2.5 [facility] ([place] Comment on above: Performed By: #### G FR, PSA, VIDH, CMP, ANEU, ADIFF, A1C, LIPID, TSH, CBC #### [address] [address] ALP [Catalytic activity/Vol] 80 U/L Normal 40-135 [facility] ([place] Comment on above: Performed By: #### G FR, PSA, VIDH, CMP, ANEU, ADIFF, A1C, LIPID, TSH, CBC #### [address] [address] ALT [Catalytic activity/Vol] 57 U/L Normal 16-63 [facility] ([place] Comment on above: Performed By: #### G FR, PSA, VIDH, CMP, ANEU, ADIFF, A1C, LIPID, TSH, CBC #### [address] [address] AST [Catalytic activity/Vol] 27 U/L Normal 10-40 [facility] ([place] Comment on above: Performed By: #### G FR, PSA, VIDH, CMP, ANEU, ADIFF, A1C, LIPID, TSH, CBC #### [address] [address] Bili Total 0.8 mg/dL Normal 0.2-1.0 [facility] ([place] Comment on above: Result Comment: Use of this assay is not recommended for patients undergoing treatment with eltrombopag due to the potential for falsely elevated results. Performed By: #### G FR, PSA, VIDH, CMP, ANEU, ADIFF, A1C, LIPID, TSH, CBC #### [address] [address] BUN/Creatinine Ratio 21 ratio Normal 7-27 [facility] ([place] Comment on above: Performed By: #### G FR, PSA, VIDH, CMP, ANEU, ADIFF, A1C, LIPID, TSH, CBC #### [address] [address] Calcium [Mass/Vol] 9.3 mg/dL Normal 8.4-10.2 [facility] ([place]) Comment on above: Performed By: #### G FR, PSA, VIDH, CMP, ANEU, ADIFF, A1C, LIPID, TSH, CBC #### [address] [address] Chloride [Moles/Vol] 96 mmol/L Low 98-107 [facility] ([place] Comment on above: Performed By: #### G FR, PSA, VIDH, CMP, ANEU, ADIFF, A1C, LIPID, TSH, CBC #### [address] [address] CO2 [Moles/Vol] 25 mmol/L Normal 22-29 [facility] ([place] Comment on above: Performed By: #### G FR, PSA, VIDH, CMP, ANEU, ADIFF, A1C, LIPID, TSH, CBC #### [address] [address] Creatinine [Mass/Vol] 0.86 mg/dL Normal 0.70-1.30 [facility] ([place]) Comment on above: Performed By: #### G FR, PSA, VIDH, CMP, ANEU, ADIFF, A1C, LIPID, TSH, CBC #### [address] [address] Electrolyte Balance 14.0 mEq/L Normal 4.0-15.0 formerly [facility] ([place]) Comment on above: Performed By: #### G FR, PSA, VIDH, CMP, ANEU, ADIFF, A1C, LIPID, TSH, CBC #### [address] [address] Globulin 3.2 G/dL Normal [facility] ([place]) Comment on above: Performed By: #### G FR, PSA, VIDH, CMP, ANEU, ADIFF, A1C, LIPID, TSH, CBC #### [address] [address] Glucose [Mass/Vol] 156 mg/dL High 70-105 [facility] ([place]) Comment on above: Performed By: #### G FR, PSA, VIDH, CMP, ANEU, ADIFF, A1C, LIPID, TSH, CBC #### [address] [address] Potassium [Moles/Vol] 3.7 mmol/L Normal 3.5-5.1 [facility] ([place]) Comment on above: Performed By: #### G FR, PSA, VIDH, CMP, ANEU, ADIFF, A1C, LIPID, TSH, CBC #### [address] [address] Sodium [Moles/Vol] 135 mmol/L Low 136-145 [facility] ([place] Comment on above: Performed By: #### G FR, PSA, VIDH, CMP, ANEU, ADIFF, A1C, LIPID, TSH, CBC #### [address] [address] Total Protein 7.4 G/dL Normal 6.4-8.2 [facility] ([place]) Comment on above: Performed By: #### G FR, PSA, VIDH, CMP, ANEU, ADIFF, A1C, LIPID, TSH, CBC #### [place] [address] Urea nitrogen [Mass/Vol] 18 mg/dL Normal 7-18 [facility] ([place] Comment on above: Performed By: #### G FR, PSA, VIDH, CMP, ANEU, ADIFF, A1C, LIPID, TSH, CBC #### [place] [address] FEon 01-21-2024 Iron [Mass/Vol] 104 ug/dL Normal 65-175 [facility] ([place] Comment on above: Performed By: #### G FR, PSA, VIDH, CMP, ANEU, ADIFF, A1C, LIPID, TSH, CBC #### [place] [address] Raysa 01-21-2024 Ferritin [Mass/Vol] 211.0 ng/mL Normal 26.0-388.0 [facility] ([place]) Comment on above: Performed By: #### G FR, PSA, VIDH, CMP, ANEU, ADIFF, A1C, LIPID, TSH, CBC #### [place] [address] LIPon 01-21-2024 Lipase Level 34 U/L Normal 16-77 [facility] ([place] Comment on above: Performed By: #### G FR, PSA, VIDH, CMP, ANEU, ADIFF, A1C, LIPID, TSH, CBC #### [place] [address] TSHon 01-21-2024 TSH Qn 4.09 m[IU]/L High 0.36-3.74 [facility] ([place] Comment on above: Performed By: #### G FR, PSA, VIDH, CMP, ANEU, ADIFF, A1C, LIPID, TSH, CBC #### [address] [address] .Auto Diffon 11-03-2023 Basophil, Absolute 0.0 10 3/mcL Normal 0.0-0.2 [facility] ([place] Comment on above: Performed By: #### G FR, PSA, VIDH, CMP, ANEU, ADIFF, A1C, LIPID, TSH, CBC #### [address] [address] Basophils/100 WBC (Bld) 0.4 % Normal 0.0-2.5 [facility] ([place] Comment on above: Performed By: #### G FR, PSA, VIDH, CMP, ANEU, ADIFF, A1C, LIPID, TSH, CBC #### [address] [address] Eosinophil, Absolute 0.1 10 3/mcL Normal 0.0-0.4 [facility] [place] Comment on above: Performed By: #### G FR, PSA, VIDH, CMP, ANEU, ADIFF, A1C, LIPID, TSH, CBC #### [address] [address] Eosinophils/100 WBC (Bld) 3.8 % Normal 0.0-7.0 [facility] ([place] Comment on above: Performed By: #### G FR, PSA, VIDH, CMP, ANEU, ADIFF, A1C, LIPID, TSH, CBC #### [address] [address] Lymphocyte, Absolute 1.2 10 3/mcL Normal 0.8-3.9 [facility] [place] Comment on above: Performed By: #### G FR, PSA, VIDH, CMP, ANEU, ADIFF, A1C, LIPID, TSH, CBC #### [address] [address] Lymphocytes/100 WBC (Bld) 32.6 % Normal 10.0-50.0 [facility] ([place] Comment on above: Performed By: #### G FR, PSA, VIDH, CMP, ANEU, ADIFF, A1C, LIPID, TSH, CBC #### [address] [address] Monocyte, Absolute 0.3 10 3/mcL Normal 0.2-1.0 [facility] [place] Comment on above: Performed By: #### G FR, PSA, VIDH, CMP, ANEU, ADIFF, A1C, LIPID, TSH, CBC #### [address] [address] Monocytes/100 WBC (Bld) 8.8 % Normal 1.7-13.0 [facility] ([place] Comment on above: Performed By: #### G FR, PSA, VIDH, CMP, ANEU, ADIFF, A1C, LIPID, TSH, CBC #### [address] [address] Neutrophils/100 WBC (Bld) 54.4 % Normal 37.0-80.0 [facility] ([place] Comment on above: Performed By: #### G FR, PSA, VIDH, CMP, ANEU, ADIFF, A1C, LIPID, TSH, CBC #### [address] [address] .NEUABSon 11-03-2023 Neutrophil, Absolute 2.1 10 3/mcL Low 2.9-6.2 [facility] [place] Comment on above: Performed By: #### G FR, PSA, VIDH, CMP, ANEU, ADIFF, A1C, LIPID, TSH, CBC #### [address] [address] A1Con 11-03-2023 HbA1c (Bld) [Mass fraction] 8.0 % High 4.0-6.0 [facility] ([place] Comment on above: Performed By: #### G FR, PSA, VIDH, CMP, ANEU, ADIFF, A1C, LIPID, TSH, CBC #### [address] [address] CBCon 11-03-2023 Erythrocyte distribution width (RBC) [Ratio] 12.9 % Normal 11.5-14.5 [facility] ([place] Comment on above: Performed By: #### G FR, PSA, VIDH, CMP, ANEU, ADIFF, A1C, LIPID, TSH, CBC #### [address] [address] Hematocrit (Bld) [Volume fraction] 41.1 % Low 42.0-52.0 [facility] ([place] Comment on above: Performed By: #### G FR, PSA, VIDH, CMP, ANEU, ADIFF, A1C, LIPID, TSH, CBC #### [place] [id number] Hgb 14.7 G/dL Normal 14.0-18.0 [facility] ([place] Comment on above: Performed By: #### G FR, PSA, VIDH, CMP, ANEU, ADIFF, A1C, LIPID, TSH, CBC #### [place] [phone] MCH (RBC) [Entitic mass] 33.4 pg High 27.0-31.2 [facility] ([place] Comment on above: Performed By: #### G FR, PSA, VIDH, CMP, ANEU, ADIFF, A1C, LIPID, TSH, CBC #### [place] [phone] MCHC 35.6 G/dL High 31.8-35.4 [facility] ([place] Comment on above: Performed By: #### G FR, PSA, VIDH, CMP, ANEU, ADIFF, A1C, LIPID, TSH, CBC #### [place] [phone] MCV (RBC) [Entitic vol] 93.8 fL Normal 80.0-94.0 [facility] ([place] Comment on above: Performed By: #### G FR, PSA, VIDH, CMP, ANEU, ADIFF, A1C, LIPID, TSH, CBC #### [place] [phone] Platelet 198 10 3/mcL Normal 130-400 [facility] ([place] Comment on above: Performed By: #### G FR, PSA, VIDH, CMP, ANEU, ADIFF, A1C, LIPID, TSH, CBC #### [address] [place] [address] Platelet mean volume (Bld) [Entitic vol] 7.6 fL Normal 7.4-10.4 [facility] ([place] Comment on above: Performed By: #### G FR, PSA, VIDH, CMP, ANEU, ADIFF, A1C, LIPID, TSH, CBC #### [address] [address] RBC 4.38 10 6/mcL Normal 4.04-6.13 [facility] ([place] Comment on above: Performed By: #### G FR, PSA, VIDH, CMP, ANEU, ADIFF, A1C, LIPID, TSH, CBC #### [address] [address] WBC 3.8 10 3/mcL Low 4.6-10.8 [facility] ([place] Comment on above: Performed By: #### G FR, PSA, VIDH, CMP, ANEU, ADIFF, A1C, LIPID, TSH, CBC #### [address] [address] FEon 11-03-2023 Iron [Mass/Vol] 77 ug/dL Normal 65-175 [facility] ([place] Comment on above: Performed By: #### G FR, PSA, VIDH, CMP, ANEU, ADIFF, A1C, LIPID, TSH, CBC #### [address] [address] Raysa 11-03-2023 Ferritin [Mass/Vol] 264.0 ng/mL Normal 26.0-388.0 [facility] ([place] Comment on above: Performed By: #### G FR, PSA, VIDH, CMP, ANEU, ADIFF, A1C, LIPID, TSH, CBC #### [address] [address] FT3on 11-03-2023 Free T3 [Mass/Vol] 2.82 pg/mL Normal 2.30-4.00 [facility] ([place] Comment on above: Performed By: #### G FR, PSA, VIDH, CMP, ANEU, ADIFF, A1C, LIPID, TSH, CBC #### [facility] [id number] [place], [place] [address] FT4on 11-03-2023 Free T4 [Mass/Vol] 0.79 ng/dL Normal 0.76-1.46 [facility] ([place] Comment on above: Performed By: #### G FR, PSA, VIDH, CMP, ANEU, ADIFF, A1C, LIPID, TSH, CBC #### [facility] [id number] [place], [place] [address] LABORATORYOrdered By: SYSTEM SYSTEM on 11-03-2023 Basophil, Absolute 0.0 103/mcL Normal 0.0 - 0.2 10^3/mcL AO Workflow SS Basophils/100 WBC (Bld) 0.4 % Normal 0.0 - 2.5 % AO Workflow SS Eosinophil, Absolute 0.1 103/mcL Normal 0.0 - 0 .4 10^3/mcL AO Workflow SS Eosinophils/100 WBC (Bld) 3.8 % Normal 0.0 - 7.0 % AO Workflow SS Erythrocyte distribution width (RBC) [Ratio] 12.9 % Normal 11.5 - 14.5 % AO Workflow SS Ferritin [Mass/Vol] 264.0 ng/mL Normal 26.0 - 388.0 ng/mL AO ADM SS Free T3 [Mass/Vol] 2.82 pg/mL Normal 2.30 - 4. 00 pg/mL AO ADM SS Free T4 [Mass/Vol] 0.79 ng/dL Normal 0.76 - 1. 46 ng/dL AO ADM SS HbA1c (Bld) [Mass fraction] 8.0 % High 4.0 - 6.0 % Auto Chem SS Hematocrit (Bld) [Volume fraction] 41.1 % Low 42.0 - 52.0 % AO Workflow SS Hemoglobin (Bld) [Mass/Vol] 14.7 G/dL Normal 14.0 - 18.0 G/dL AO Workflow SS Iron [Mass/Vol] 77 ug/dL Normal 65 - 175 mcg/dL AO ADM SS Lymphocyte, Absolute 1.2 103/mcL Normal 0.8 - 3 .9 10^3/mcL AO Workflow SS Lymphocytes/100 WBC (Bld) 32.6 % Normal 10.0 - 50.0 % AO Workflow SS MCH (RBC) [Entitic mass] 33.4 pg High 27.0 - 31.2 pg AO Workflow SS MCHC 35.6 G/dL High 31.8 - 35.4 G/dL AO Workflow SS MCV (RBC) [Entitic vol] 93.8 fL Normal 80.0 - 94.0 fL AO Workflow SS Monocyte, Absolute 0.3 103/mcL Normal 0.2 - 1.0 10^3/mcL AO Workflow SS Monocytes/100 WBC (Bld) 8.8 % Normal 1.7 - 13.0 % AO Workflow SS Neutrophil, Absolute 2.1 103/mcL Low 2.9 - 6 .2 10^3/mcL AO Workflow SS Neutrophils/100 WBC (Bld) 54.4 % Normal 37.0 - 80.0 % AO Workflow SS Platelet mean volume (Bld) [Entitic vol] 7.6 fL Normal 7.4 - 10.4 fL AO Workflow SS Platelets (Bld) [#/Vol] 198 103/mcL Normal 130 - 400 10^3/mcL AO Workflow SS RBC (Bld) [#/Vol] 4.38 106/mcL Normal 4.04 - 6.1 3 10^6/mcL AO Workflow SS TSH Qn 2.08 m[IU]/L Normal 0.36 - 3.74 mcIU/mL AO ADM SS WBC (Bld) [#/Vol] 3.8 103/mcL Low 4.6 - 10.8 10^3/mcL AO Workflow SS TSHon 11-03-2023 TSH Qn 2.08 m[IU]/L Normal 0.36-3.74 [facility] ([place] Comment on above: Performed By: #### G FR, PSA, VIDH, CMP, ANEU, ADIFF, A1C, LIPID, TSH, CBC #### [place] [id number] [place], [place] [address] LABORATORYOrdered By: Zuleyka Evangelista on 07-08-2023 Albumin DL <= 20 mg/L (U) [Mass/Vol] [address] mcg/dL Invalid Interpretation Code AO ADM SS Albumin/Creatinine DL <= 20 mg/L (U) [Mass ratio] 204 mcg/mg High 0 - 30 mcg/mg AO ADM SS Creatinine (U) [Mass/Vol] 91.7 mg/dL Normal 39.0 - 259.0 mg/dL AO ADM SS MALBRon 07-08-2023 U Creatinine 91.7 mg/dL Normal 39.0-259.0 [facility] ([place] Comment on above: Performed By: #### M ALBR #### [address] [address] U Microalb [address] mcg/dL Normal [facility] ([place]) Comment on above: Performed By: #### M ALBR #### [address] [address] U Ratio Alb/Cre 204 mcg/mg High 0-30 [facility] ([place]) Comment on above: Performed By: #### M ALBR #### [address] [address] .Auto Diffon 05-26-2023 Basophil, Absolute 0.0 10 3/mcL Normal 0.0-0.2 [facility] ([place] Comment on above: Performed By: #### G FR, PSA, VIDH, CMP, ANEU, ADIFF, A1C, LIPID, TSH, CBC #### [address] [address] Basophils/100 WBC (Bld) 0.6 % Normal 0.0-2.5 [facility] ([place] Comment on above: Performed By: #### G FR, PSA, VIDH, CMP, ANEU, ADIFF, A1C, LIPID, TSH, CBC #### [address] [address] Eosinophil, Absolute 0.2 10 3/mcL Normal 0.0-0.4 [facility] [place] Comment on above: Performed By: #### G FR, PSA, VIDH, CMP, ANEU, ADIFF, A1C, LIPID, TSH, CBC #### [address] [address] Eosinophils/100 WBC (Bld) 3.1 % Normal 0.0-7.0 [facility] ([place] Comment on above: Performed By: #### G FR, PSA, VIDH, CMP, ANEU, ADIFF, A1C, LIPID, TSH, CBC #### [address] [address] Lymphocyte, Absolute 1.0 10 3/mcL Normal 0.8-3.9 [facility] [place] Comment on above: Performed By: #### G FR, PSA, VIDH, CMP, ANEU, ADIFF, A1C, LIPID, TSH, CBC #### [address] [address] Lymphocytes/100 WBC (Bld) 20.3 % Normal 10.0-50.0 [facility] ([place] Comment on above: Performed By: #### G FR, PSA, VIDH, CMP, ANEU, ADIFF, A1C, LIPID, TSH, CBC #### [address] [address] Monocyte, Absolute 0.4 10 3/mcL Normal 0.2-1.0 [facility] ([place] Comment on above: Performed By: #### G FR, PSA, VIDH, CMP, ANEU, ADIFF, A1C, LIPID, TSH, CBC #### [address] [address] Monocytes/100 WBC (Bld) 7.1 % Normal 1.7-13.0 [facility] ([place] Comment on above: Performed By: #### G FR, PSA, VIDH, CMP, ANEU, ADIFF, A1C, LIPID, TSH, CBC #### [address] [address] Neutrophils/100 WBC (Bld) 68.9 % Normal 37.0-80.0 [facility] ([place] Comment on above: Performed By: #### G FR, PSA, VIDH, CMP, ANEU, ADIFF, A1C, LIPID, TSH, CBC #### [address] [address] .GFRon 05-26-2023 GFR Non- 79 ml/min/1.73sqm Normal [facility] ([place] Comment on above: Result Comment: GFR Population mean for , Non- Americans Ages 20-29 = 116 mL/min/1.73 sq.m. Ages 30-39 = 107 mL/min/1.73 sq.m. Ages 40-49 = 99 mL/min/1.73 sq.m. Ages 50-59 = 93 mL/min/1.73 sq.m. Ages 60-69 = 85 mL/min/1.73 sq.m. Ages 70+ = 75 mL/min/1.73 sq.m. Chronic Kidney Disease: Less than 60 mL/min/1.73 square meters End Stage Renal Disease: Less than 15 mL/min/1.73 square meters Performed By: #### G FR, PSA, VIDH, CMP, ANEU, ADIFF, A1C, LIPID, TSH, CBC #### [address] [address] GFR 96 ml/min/1.73sqm Normal [facility] ([place] Comment on above: Result Comment: GFR Population mean for , Non- Americans Ages 20-29 = 116 mL/min/1.73 sq.m. Ages 30-39 = 107 mL/min/1.73 sq.m. Ages 40-49 = 99 mL/min/1.73 sq.m. Ages 50-59 = 93 mL/min/1.73 sq.m. Ages 60-69 = 85 mL/min/1.73 sq.m. Ages 70+ = 75 mL/min/1.73 sq.m. Chronic Kidney Disease: Less than 60 mL/min/1.73 square meters End Stage Renal Disease: Less than 15 mL/min/1.73 square meters Performed By: #### G FR, PSA, VIDH, CMP, ANEU, ADIFF, A1C, LIPID, TSH, CBC #### [address] [address] .NEUABSon 05-26-2023 Neutrophil, Absolute 3.5 10 3/mcL Normal 2.9-6.2 [facility] [place] Comment on above: Performed By: #### G FR, PSA, VIDH, CMP, ANEU, ADIFF, A1C, LIPID, TSH, CBC #### [address] [address] A1Con 05-26-2023 HbA1c (Bld) [Mass fraction] 6.8 % High 4.3-6.4 [facility] ([place] Comment on above: Performed By: #### G FR, PSA, VIDH, CMP, ANEU, ADIFF, A1C, LIPID, TSH, CBC #### [address] [address] CBCon 05-26-2023 Erythrocyte distribution width (RBC) [Ratio] 12.7 % Normal 11.5-14.5 [facility] ([place] Comment on above: Performed By: #### G FR, PSA, VIDH, CMP, ANEU, ADIFF, A1C, LIPID, TSH, CBC #### [address] [address] Hematocrit (Bld) [Volume fraction] 43.7 % Normal 42.0-52.0 [facility] ([place] Comment on above: Performed By: #### G FR, PSA, VIDH, CMP, ANEU, ADIFF, A1C, LIPID, TSH, CBC #### [place] [address] Hgb 15.0 G/dL Normal 14.0-18.0 [facility] ([place] Comment on above: Performed By: #### G FR, PSA, VIDH, CMP, ANEU, ADIFF, A1C, LIPID, TSH, CBC #### [address] [address] MCH (RBC) [Entitic mass] 31.4 pg High 27.0-31.2 [facility] ([place] Comment on above: Performed By: #### G FR, PSA, VIDH, CMP, ANEU, ADIFF, A1C, LIPID, TSH, CBC #### [address] [address] MCHC 34.3 G/dL Normal 31.8-35.4 [facility] ([place] Comment on above: Performed By: #### G FR, PSA, VIDH, CMP, ANEU, ADIFF, A1C, LIPID, TSH, CBC #### [address] [address] MCV (RBC) [Entitic vol] 91.8 fL Normal 80.0-94.0 [facility] ([place] Comment on above: Performed By: #### G FR, PSA, VIDH, CMP, ANEU, ADIFF, A1C, LIPID, TSH, CBC #### [address] [address] Platelet 179 10 3/mcL Normal 130-400 [facility] ([place] Comment on above: Performed By: #### G FR, PSA, VIDH, CMP, ANEU, ADIFF, A1C, LIPID, TSH, CBC #### [address] [address] Platelet mean volume (Bld) [Entitic vol] 7.8 fL Normal 7.4-10.4 [facility] ([place] Comment on above: Performed By: #### G FR, PSA, VIDH, CMP, ANEU, ADIFF, A1C, LIPID, TSH, CBC #### [address] [address] RBC 4.76 10 6/mcL Normal 4.04-6.13 [facility] ([place] Comment on above: Performed By: #### G FR, PSA, VIDH, CMP, ANEU, ADIFF, A1C, LIPID, TSH, CBC #### [address] [address] WBC 5.0 10 3/mcL Normal 4.6-10.8 [facility] ([place] Comment on above: Performed By: #### G FR, PSA, VIDH, CMP, ANEU, ADIFF, A1C, LIPID, TSH, CBC #### [address] [address] CMPon 05-26-2023 Albumin Level 4.4 G/dL Normal 3.5-5.0 [facility] ([place] Comment on above: Performed By: #### G FR, PSA, VIDH, CMP, ANEU, ADIFF, A1C, LIPID, TSH, CBC #### [address] [address] Albumin/Globulin [Mass ratio] 1.3 {ratio} Normal 1.1-2.5 [facility] ([place] Comment on above: Performed By: #### G FR, PSA, VIDH, CMP, ANEU, ADIFF, A1C, LIPID, TSH, CBC #### [address] [address] ALP [Catalytic activity/Vol] 109 U/L Normal 40-135 [facility] ([place] Comment on above: Performed By: #### G FR, PSA, VIDH, CMP, ANEU, ADIFF, A1C, LIPID, TSH, CBC #### [address] [address] ALT [Catalytic activity/Vol] 62 U/L Normal 16-63 [facility] ([place] Comment on above: Performed By: #### G FR, PSA, VIDH, CMP, ANEU, ADIFF, A1C, LIPID, TSH, CBC #### [address] [address] AST [Catalytic activity/Vol] 32 U/L Normal 10-40 [facility] ([place] Comment on above: Performed By: #### G FR, PSA, VIDH, CMP, ANEU, ADIFF, A1C, LIPID, TSH, CBC #### [address] [address] Bili Total 0.7 mg/dL Normal 0.2-1.0 [facility] ([place] Comment on above: Result Comment: Use of this assay is not recommended for patients undergoing treatment with eltrombopag due to the potential for falsely elevated results. Performed By: #### G FR, PSA, VIDH, CMP, ANEU, ADIFF, A1C, LIPID, TSH, CBC #### [address] [address] BUN/Creatinine Ratio 19 ratio Normal 7-27 [facility] ([place] Comment on above: Performed By: #### G FR, PSA, VIDH, CMP, ANEU, ADIFF, A1C, LIPID, TSH, CBC #### [address] [address] Calcium [Mass/Vol] 9.8 mg/dL Normal 8.4-10.2 [facility] ([place] Comment on above: Performed By: #### G FR, PSA, VIDH, CMP, ANEU, ADIFF, A1C, LIPID, TSH, CBC #### [address] [address] Chloride [Moles/Vol] 99 mmol/L Normal 98-107 [facility] ([place] Comment on above: Performed By: #### G FR, PSA, VIDH, CMP, ANEU, ADIFF, A1C, LIPID, TSH, CBC #### [address] [address] CO2 [Moles/Vol] 21 mmol/L Low 22-29 [facility] ([place] Comment on above: Performed By: #### G FR, PSA, VIDH, CMP, ANEU, ADIFF, A1C, LIPID, TSH, CBC #### [address] [address] Creatinine [Mass/Vol] 0.98 mg/dL Normal 0.70-1.30 [facility] ([place]) Comment on above: Performed By: #### G FR, PSA, VIDH, CMP, ANEU, ADIFF, A1C, LIPID, TSH, CBC #### [address] [address] Electrolyte Balance 17.0 mEq/L High 4.0-15.0 [facility] ([place]) Comment on above: Performed By: #### G FR, PSA, VIDH, CMP, ANEU, ADIFF, A1C, LIPID, TSH, CBC #### [address] [address] Globulin 3.5 G/dL Normal [facility] ([place] Comment on above: Performed By: #### G FR, PSA, VIDH, CMP, ANEU, ADIFF, A1C, LIPID, TSH, CBC #### [address] [address] Glucose [Mass/Vol] 176 mg/dL High 70-105 [facility] ([place] Comment on above: Performed By: #### G FR, PSA, VIDH, CMP, ANEU, ADIFF, A1C, LIPID, TSH, CBC #### [address] [address] Potassium [Moles/Vol] 4.1 mmol/L Normal 3.5-5.1 [facility] ([place]) Comment on above: Performed By: #### G FR, PSA, VIDH, CMP, ANEU, ADIFF, A1C, LIPID, TSH, CBC #### [address] [address] Sodium [Moles/Vol] 137 mmol/L Normal 136-145 [facility] ([place] Comment on above: Performed By: #### G FR, PSA, VIDH, CMP, ANEU, ADIFF, A1C, LIPID, TSH, CBC #### [address] [address] Total Protein 7.9 G/dL Normal 6.4-8.2 [facility] ([place] Comment on above: Performed By: #### G FR, PSA, VIDH, CMP, ANEU, ADIFF, A1C, LIPID, TSH, CBC #### [address] [address] Urea nitrogen [Mass/Vol] 19 mg/dL High 7-18 [facility] ([place] Comment on above: Performed By: #### G FR, PSA, VIDH, CMP, ANEU, ADIFF, A1C, LIPID, TSH, CBC #### [address] [address] LIPIDon 05-26-2023 Cholesterol [Mass/Vol] 296 mg/dL High 0-200 [facility] ([place] Comment on above: Result Comment: Chol esterol Reference Interval: Less than 200 Desirable 200-239 Borderline high risk 240 and above High risk Performed By: #### G FR, PSA, VIDH, CMP, ANEU, ADIFF, A1C, LIPID, TSH, CBC #### [address] [address] Cholesterol in HDL [Mass/Vol] 35 mg/dL Low 40-60 [facility] ([place] Comment on above: Performed By: #### G FR, PSA, VIDH, CMP, ANEU, ADIFF, A1C, LIPID, TSH, CBC #### [address] [address] LDL Cholesterol Not Valid Normal 0-130 [facility] ([place] Comment on above: Result Comment: Trig lyceride >400 invalidates the calculated LDL. Triglyceride >400 invalidates the calculated LDL. Performed By: #### G FR, PSA, VIDH, CMP, ANEU, ADIFF, A1C, LIPID, TSH, CBC #### [address] [address] Triglyceride [Mass/Vol] mg/dL High 0-150 [facility] ([place] Comment on above: Result Comment: Trig lyceride Reference Interval: Less than 150 Normal 150-199 Borderline high risk 200-499 High risk 500 or higher Very high risk Performed By: #### G FR, PSA, VIDH, CMP, ANEU, ADIFF, A1C, LIPID, TSH, CBC #### [place] [address] PSAon 05-26-2023 Prostate Specific Antigen 0.49 ng/mL Normal 0.00-4.00 [facility] ([place]) Comment on above: Performed By: #### G FR, PSA, VIDH, CMP, ANEU, ADIFF, A1C, LIPID, TSH, CBC #### [place] [id number] TSHon 05-26-2023 TSH Qn 4.26 m[IU]/L High 0.36-3.74 [facility] ([place]) Comment on above: Performed By: #### G FR, PSA, VIDH, CMP, ANEU, ADIFF, A1C, LIPID, TSH, CBC #### [place] [id number] VIDHon 05-26-2023 Vit. D 25-Hydroxy 49.8 ng/mL Normal [facility] ([place]) Comment on above: Result Comment: Inte rpretive Values Based on Total 25(OH) Vitamin D: Deficient <20 ng/mL Insufficient 20 - <30 ng/mL Sufficient 30-100 ng/mL Performed By: #### G FR, PSA, VIDH, CMP, ANEU, ADIFF, A1C, LIPID, TSH, CBC #### [place] [id number] LABORATORYOrdered By: SYSTEM SYSTEM on 09-28-2022 Albumin BCP dye [Mass/Vol] 3.6 G/dL Invalid Interpretation Code 3.5 - 5.0 G/dL AO ADM SS ALP [Catalytic activity/Vol] 96 U/L Invalid Interpretation Code 40 - 135 U/L AO ADM SS ALT With P-5'-P [Catalytic activity/Vol] U/L 1 Invalid Interpretation Code 16 - 63 U/L AO ADM SS AST With P-5'-P [Catalytic activity/Vol] 26 U/L Invalid Interpretation Code 10 - 40 U/L AO ADM SS Bilirubin [Mass/Vol] 0.8 mg/dL Invalid Interpretation Code 0.2 - 1.0 mg/dL AO ADM SS Calcium [Mass/Vol] 8.4 mg/dL Invalid Interpretation Code 8.4 - 10.2 mg/dL AO ADM SS Chloride [Moles/Vol] 94 mmol/L Invalid Interpretation Code 98 - 107 mmol/L AO ADM SS CO2 [Moles/Vol] 24 mmol/L Invalid Interpretation Code 22 - 29 mmol/L AO ADM SS Creatinine [Mass/Vol] 0.82 mg/dL Invalid Interpretation Code 0.70 - 1.30 mg/dL AO ADM SS Electrolyte Balance 10.0 mEq/L Invalid Interpretation Code 4.0 - 15.0 mEq/L AO ADM SS GFR 118 ml/min/1.73sqm Invalid Interpretation Code AO Chemistry S GFR Non- 97 ml/min/1.73sqm Invalid Interpretation Code AO Chemistry S Glucose [Mass/Vol] 346 mg/dL Invalid Interpretation Code 70 - 105 mg/dL AO ADM SS Lipase [Catalytic activity/Vol] 107 U/L Invalid Interpretation Code 16 - 77 U/L AO ADM SS Monocyte distribution width Auto (Bld) [Entitic vol] See Comment Invalid Interpretation Code 0.00 - 20.00 AO Hematology S Comment on above: Result Comment: The MDW result could not be reported due to a sample abnormality that prevents the MDW from being calculated. Potassium [Moles/Vol] 3.8 mmol/L Invalid Interpretation Code 3.5 - 5.1 mmol/L AO ADM SS Protein [Mass/Vol] 6.6 G/dL Invalid Interpretation Code 6.4 - 8.2 G/dL AO ADM SS Sodium [Moles/Vol] 128 mmol/L Invalid Interpretation Code 136 - 145 mmol/L AO ADM SS Urea nitrogen [Mass/Vol] 13 mg/dL Invalid Interpretation Code 7 - 18 mg/dL AO ADM SS LABORATORYOrdered By: Peyton Brand on 09-28-2022 Albumin/Globulin [Mass ratio] 1.2 {ratio} Invalid Interpretation Code 1.1 - 2.5 ratio AO Chemistry S Basophil, Absolute 0.0 103/mcL Invalid Interpretation Code 0.0 - 0.2 10^3/mcL AO Workflow SS Basophils/100 WBC (Bld) 0.8 % Invalid Interpretation Code 0.0 - 2.5 % AO Workflow SS Eosinophil, Absolute 0.1 103/mcL Invalid Interpretation Code 0.0 - 0.4 10^3/mcL AO Workflow SS Eosinophils/100 WBC (Bld) 3.3 % Invalid Interpretation Code 0.0 - 7.0 % AO Workflow SS Erythrocyte distribution width (RBC) [Ratio] 12.9 % Invalid Interpretation Code 11.5 - 14.5 % AO Workflow SS Globulin 3.0 G/dL Invalid Interpretation Code AO Chemistry S Hematocrit (Bld) [Volume fraction] 35.7 % Invalid Interpretation Code 42.0 - 52.0 % AO Workflow SS Hemoglobin (Bld) [Mass/Vol] 13.0 G/dL Invalid Interpretation Code 14.0 - 18.0 G/dL AO Workflow SS Lymphocyte, Absolute 0.5 103/mcL Invalid Interpretation Code 0.8 - 3.9 10^3/mcL AO Workflow SS Lymphocytes/100 WBC (Bld) 12.1 % Invalid Interpretation Code 10.0 - 50.0 % AO Workflow SS MCH (RBC) [Entitic mass] 33.6 pg Invalid Interpretation Code 27.0 - 31.2 pg AO Workflow SS MCHC 36.3 G/dL Invalid Interpretation Code 31.8 - 35.4 G/dL AO Workflow SS MCV (RBC) [Entitic vol] 92.4 fL Invalid Interpretation Code 80.0 - 94.0 fL AO Workflow SS Monocyte, Absolute 0.4 103/mcL Invalid Interpretation Code 0.2 - 1.0 10^3/mcL AO Workflow SS Monocytes/100 WBC (Bld) 10.9 % Invalid Interpretation Code 1.7 - 13.0 % AO Workflow SS Neutrophil, Absolute 3.0 103/mcL Invalid Interpretation Code 2.9 - 6.2 10^3/mcL AO Workflow SS Neutrophils/100 WBC (Bld) 72.9 % Invalid Interpretation Code 37.0 - 80.0 % AO Workflow SS Platelet Estimate Normal *NA* (09/28/22 2:25 AM) Invalid Interpretation Code AO Workflow SS Platelet mean volume (Bld) [Entitic vol] 7.2 fL Invalid Interpretation Code 7.4 - 10.4 fL AO Workflow SS Platelets (Bld) [#/Vol] 144 103/mcL Invalid Interpretation Code 130 - 400 10^3/mcL AO Workflow SS RBC (Bld) [#/Vol] 3.87 106/mcL Invalid Interpretation Code 4.04 - 6.13 10^6/mcL AO Workflow SS Urea nitrogen/Creatinine [Mass ratio] 16 ratio Invalid Interpretation Code 7 - 27 ratio AO Chemistry S WBC (Bld) [#/Vol] 4.1 103/mcL Invalid Interpretation Code 4.6 - 10.8 10^3/mcL AO Workflow SS LABORATORYOrdered By: SYSTEM SYSTEM on 04-03-2022 Albumin BCP dye [Mass/Vol] 4.0 G/dL Invalid Interpretation Code 3.2 - 4.8 G/dL ADM SS Albumin/Globulin [Mass ratio] 1.5 {ratio} Invalid Interpretation Code 0.9 - 1.6 ratio ADM SS ALP [Catalytic activity/Vol] 129 U/L Invalid Interpretation Code 38 - 126 U/L ADM SS ALT No additional P-5'-P [Catalytic activity/Vol] 71 U/L Invalid Interpretation Code 12 - 55 U/L ADM SS AST [Catalytic activity/Vol] 52 U/L Invalid Interpretation Code 8 - 34 U/L ADM SS Bilirubin [Mass/Vol] 0.50 mg/dL Invalid Interpretation Code 0.20 - 1.20 mg/dL ADM SS Calcium [Mass/Vol] 10.0 mg/dL Invalid Interpretation Code 8.7 - 10.4 mg/dL ADM SS Chloride [Moles/Vol] 99 mmol/L Invalid Interpretation Code 98 - 110 mEq/L ADM SS CO2 [Moles/Vol] 22 mmol/L Invalid Interpretation Code 22 - 32 mEq/L ADM SS Creatinine [Mass/Vol] 0.57 mg/dL Invalid Interpretation Code 0.60 - 1.40 mg/dL ADM SS Electrolyte Balance 12.0 mEq/L Invalid Interpretation Code 4.0 - 15.0 mEq/L ADM SS GFR/1.73 sq M.predicted among blacks MDRD (S/P/Bld) [Vol rate/Area] ml/min/1.73sqm Invalid Interpretation Code ADM SS GFR/1.73 sq M.predicted among non-blacks MDRD (S/P/Bld) [Vol rate/Area] ml/min/1.73sqm Invalid Interpretation Code ADM SS Globulin 2.7 G/dL Invalid Interpretation Code 1.5 - 3.8 G/dL ADM SS Glucose [Mass/Vol] 153 mg/dL Invalid Interpretation Code 70 - 110 mg/dL ADM SS Potassium [Moles/Vol] 3.9 mmol/L Invalid Interpretation Code 3.5 - 5.0 mEq/L ADM SS Prostate specific Ag [Mass/Vol] 0.47 ng/mL Invalid Interpretation Code 0.02 - 4.00 ng/mL ADM SS Protein [Mass/Vol] 6.7 G/dL Invalid Interpretation Code 5.7 - 8.2 G/dL ADM SS Sodium [Moles/Vol] 133 mmol/L Invalid Interpretation Code 136 - 145 mEq/L ADM SS Urea nitrogen [Mass/Vol] 12.0 mg/dL Invalid Interpretation Code 8.0 - 22.0 mg/dL ADM SS Urea nitrogen/Creatinine [Mass ratio] 21.1 ratio Invalid Interpretation Code 10.0 - 22.0 ratio ADM SS LABORATORYOrdered By: Chelsea Cabrera on 04-03-2022 Basophil, Absolute 0.0 103/mcL Invalid Interpretation Code 0.0 - 0.2 10^3/mcL AO Workflow SS Basophils/100 WBC (Bld) 0.8 % Invalid Interpretation Code 0.0 - 2.5 % AO Workflow SS Eosinophil, Absolute 0.1 103/mcL Invalid Interpretation Code 0.0 - 0.4 10^3/mcL AO Workflow SS Eosinophils/100 WBC (Bld) 3.5 % Invalid Interpretation Code 0.0 - 7.0 % AO Workflow SS Erythrocyte distribution width (RBC) [Ratio] 12.8 % Invalid Interpretation Code 11.5 - 14.5 % AO Hematology S Hematocrit (Bld) [Volume fraction] 38.8 % Invalid Interpretation Code 42.0 - 52.0 % AO Hematology S Hemoglobin (Bld) [Mass/Vol] 13.5 G/dL Invalid Interpretation Code 14.0 - 18.0 G/dL AO Hematology S Lymphocyte, Absolute 0.9 103/mcL Invalid Interpretation Code 0.8 - 3.9 10^3/mcL AO Workflow SS Lymphocytes/100 WBC (Bld) 25.1 % Invalid Interpretation Code 10.0 - 50.0 % AO Workflow SS MCH (RBC) [Entitic mass] 32.6 pg Invalid Interpretation Code 27.0 - 31.2 pg AO Hematology S MCHC 34.8 G/dL Invalid Interpretation Code 31.8 - 35.4 G/dL AO Hematology S MCV (RBC) [Entitic vol] 93.7 fL Invalid Interpretation Code 80.0 - 94.0 fL AO Hematology S Monocyte, Absolute 0.3 103/mcL Invalid Interpretation Code 0.2 - 1.0 10^3/mcL AO Workflow SS Monocytes/100 WBC (Bld) 7.2 % Invalid Interpretation Code 1.7 - 13.0 % AO Workflow SS Neutrophil, Absolute 2.4 103/mcL Invalid Interpretation Code 2.9 - 6.2 10^3/mcL AO Workflow SS Neutrophils/100 WBC (Bld) 63.4 % Invalid Interpretation Code 37.0 - 80.0 % AO Workflow SS Platelet mean volume (Bld) [Entitic vol] 9.2 fL Invalid Interpretation Code 7.4 - 10.4 fL AO Workflow SS Platelets (Bld) [#/Vol] 174 103/mcL Invalid Interpretation Code 130 - 400 10^3/mcL AO Workflow SS RBC (Bld) [#/Vol] 4.14 106/mcL Invalid Interpretation Code 4.04 - 6.13 10^6/mcL AO Workflow SS WBC (Bld) [#/Vol] 3.8 103/mcL Invalid Interpretation Code 4.6 - 10.8 10^3/mcL AO Workflow SS LABORATORYOrdered By: Shira Tan on 04-03-2022 Cholesterol [Mass/Vol] 473 mg/dL Invalid Interpretation Code 50 - 199 mg/dL ADM SS Cholesterol in HDL [Mass/Vol] 80 mg/dL Invalid Interpretation Code 40 - 59 mg/dL ADM SS Cholesterol in LDL [Mass/Vol] Not Valid Invalid Interpretation Code 0 - 129 ADM SS Comment on above: Result Comment: Trig lyceride >400 invalidates the calculated LDL. Triglyceride >400 invalidates the calculated LDL. Triglyceride [Mass/Vol] mg/dL Invalid Interpretation Code 3 - 149 mg/dL [facility] LABORATORYOrdered By: Zuleyka Evangelista on 04-03-2022 HbA1c (Bld) [Mass fraction] 6.2 % Invalid Interpretation Code 4.3 - 6.4 % AO ADM SS LABORATORYOrdered By: Zuleyka Evangelista on 02-27-2022 Albumin BCP dye [Mass/Vol] 4.0 G/dL Invalid Interpretation Code 3.5 - 5.0 G/dL AO ADM SS Albumin/Globulin [Mass ratio] 1.1 {ratio} Invalid Interpretation Code 1.1 - 2.5 ratio AO ADM SS ALP [Catalytic activity/Vol] 142 U/L Invalid Interpretation Code 40 - 135 U/L AO ADM SS ALT With P-5'-P [Catalytic activity/Vol] 72 U/L Invalid Interpretation Code 16 - 63 U/L AO ADM SS AST With P-5'-P [Catalytic activity/Vol] 47 U/L Invalid Interpretation Code 10 - 40 U/L AO ADM SS Bili Indirect 0.3 mg/dL Invalid Interpretation Code AO Chemistry S Bilirubin [Mass/Vol] 0.6 mg/dL Invalid Interpretation Code 0.2 - 1.0 mg/dL AO ADM SS Bilirubin.direct [Mass/Vol] 0.3 mg/dL Invalid Interpretation Code 0.0 - 0.2 mg/dL AO ADM SS Globulin 3.5 G/dL Invalid Interpretation Code AO ADM SS Lipase [Catalytic activity/Vol] 295 U/L Invalid Interpretation Code 73 - 393 U/L AO ADM SS Protein [Mass/Vol] 7.5 G/dL Invalid Interpretation Code 6.4 - 8.2 G/dL AO ADM SS Clinical Summary: Tammy rich 10-10-2021 MC75 OP Visit Invalid Interpretation Code [facility] [place] [facility] Work Phone: LABORATORYOrdered By: Hali Morris on 10-09-2021 N. gonorrhoeae DNA CRISSY+probe Ql (Unsp spec) Negative (10/09/21 1:44 PM) Invalid Interpretation Code Negative AH Auto Viro/Sero SS N. gonorrhoeae Interp N. gonorrhoeae DNA not detected. Specimen is presumptive negative forN. gonorrhoeae. A negative result does not preclude Neisseria gonorrhoeaeinfection because results depend on adequate specimen collection, absenceof inhibitors, and sufficient DNA to be detected. Invalid Interpretation Code AH Auto Viro/Sero SS Specimen source Nom (Unsp spec) Urine (10/09/21 1:44 PM) Invalid Interpretation Code Auto Viro/Sero SS C. trachomatis DNA CRISSY+probe Ql (Unsp spec) Negative (10/09/21 10:02 AM) Invalid Interpretation Code Negative Auto Viro/Sero SS C. trachomatis Interp C. trachomatis DNA not detected. Specimen is presumptive negative forC. trachomatis.A negative result does not preclude C. trachomatis infection becauseresults depend on adequate specimen collection, absence of inhibitors,and sufficient DNA to be detected. Invalid Interpretation Code See CT Interp N Auto Viro/Sero SS Specimen source Nom (Unsp spec) Urine (10/09/21 10:02 AM) Invalid Interpretation Code Auto Viro/Sero SS No Panel Informationon 10-09 Culture Urine No growth at 48 hours. [facility] Work Phone: LABORATORYOrdered By: Mary Redd on 10-06-2021 Albumin BCP dye [Mass/Vol] 3.9 G/dL Invalid Interpretation Code 3.5 - 5.0 G/dL AO ADM SS Albumin/Globulin [Mass ratio] 1.2 {ratio} Invalid Interpretation Code 1.1 - 2.5 ratio AO ADM SS ALP [Catalytic activity/Vol] 81 U/L Invalid Interpretation Code 40 - 135 U/L AO ADM SS ALT With P-5'-P [Catalytic activity/Vol] 58 U/L Invalid Interpretation Code 16 - 63 U/L AO ADM SS AST With P-5'-P [Catalytic activity/Vol] 26 U/L Invalid Interpretation Code 10 - 40 U/L AO ADM SS Bilirubin [Mass/Vol] 0.4 mg/dL Invalid Interpretation Code 0.2 - 1.0 mg/dL AO ADM SS Calcium [Mass/Vol] 9.3 mg/dL Invalid Interpretation Code 8.4 - 10.2 mg/dL AO ADM SS Chloride [Moles/Vol] 98 mmol/L Invalid Interpretation Code 98 - 107 mmol/L AO ADM SS Cholesterol [Mass/Vol] 289 mg/dL Invalid Interpretation Code 0 - 200 mg/dL AO ADM SS Cholesterol in HDL [Mass/Vol] 28 mg/dL Invalid Interpretation Code 40 - 60 mg/dL AO ADM SS CO2 [Moles/Vol] 25 mmol/L Invalid Interpretation Code 22 - 29 mmol/L AO ADM SS Creatinine [Mass/Vol] 0.97 mg/dL Invalid Interpretation Code 0.70 - 1.30 mg/dL AO ADM SS Electrolyte Balance 15.0 mEq/L Invalid Interpretation Code 4.0 - 15.0 mEq/L AO ADM SS Globulin 3.3 G/dL Invalid Interpretation Code AO ADM SS Glucose [Mass/Vol] 164 mg/dL Invalid Interpretation Code 70 - 105 mg/dL AO ADM SS Iron [Mass/Vol] 70 ug/dL Invalid Interpretation Code 65 - 175 mcg/dL AO ADM SS LDL Cholesterol Not Valid Invalid Interpretation Code 0 - 130 AO ADM SS Comment on above: Result Comment: Trig lyceride >400 invalidates the calculated LDL. Triglyceride >400 invalidates the calculated LDL. Potassium [Moles/Vol] 4.1 mmol/L Invalid Interpretation Code 3.5 - 5.1 mmol/L AO ADM SS Protein [Mass/Vol] 7.2 G/dL Invalid Interpretation Code 6.4 - 8.2 G/dL AO ADM SS Sodium [Moles/Vol] 138 mmol/L Invalid Interpretation Code 136 - 145 mmol/L AO ADM SS Triglyceride [Mass/Vol] mg/dL Invalid Interpretation Code 0 - 150 mg/dL AO ADM SS TSH Qn 2.10 m[IU]/L Invalid Interpretation Code 0.36 - 3.74 mcIU/mL AO ADM SS Urea nitrogen [Mass/Vol] 12 mg/dL Invalid Interpretation Code 7 - 18 mg/dL AO ADM SS Urea nitrogen/Creatinine [Mass ratio] 12 ratio Invalid Interpretation Code 7 - 27 ratio AO ADM SS Vit. D 25-Hydroxy 57.0 ng/mL Invalid Interpretation Code AO ADM SS LABORATORYOrdered By: Rebeka Huerta on 10-06-2021 Basophil, Absolute 0.00 103/mcL Invalid Interpretation Code 0.00 - 0.19 10^3/mcL AO Auto Heme SS Basophils/100 WBC (Bld) 0.4 % Invalid Interpretation Code 0.0 - 2.5 % AO Auto Heme SS Eosinophil, Absolute 0.10 103/mcL Invalid Interpretation Code 0.00 - 0.40 10^3/mcL AO Auto Heme SS Eosinophils/100 WBC (Bld) 2.7 % Invalid Interpretation Code 0.0 - 7.0 % AO Auto Heme SS Erythrocyte distribution width (RBC) [Ratio] 14.0 % Invalid Interpretation Code 11.5 - 14.5 % AO Auto Heme SS Hematocrit (Bld) [Volume fraction] 40.1 % Invalid Interpretation Code 42.0 - 52.0 % AO Auto Heme SS Hemoglobin (Bld) [Mass/Vol] 14.3 G/dL Invalid Interpretation Code 14.0 - 18.0 G/dL AO Auto Heme SS Lymphocyte, Absolute 1.10 103/mcL Invalid Interpretation Code 0.77 - 3.85 10^3/mcL AO Auto Heme SS Lymphocytes/100 WBC (Bld) 19.9 % Invalid Interpretation Code 10.0 - 50.0 % AO Auto Heme SS MCH (RBC) [Entitic mass] 31.7 pg Invalid Interpretation Code 27.0 - 31.2 pg AO Auto Heme SS MCHC (RBC) [Mass/Vol] 35.6 G/dL Invalid Interpretation Code 31.8 - 35.4 G/dL AO Auto Heme SS MCV (RBC) [Entitic vol] 88.9 fL Invalid Interpretation Code 80.0 - 94.0 fL AO Auto Heme SS Monocyte, Absolute 0.40 103/mcL Invalid Interpretation Code 0.15 - 1.00 10^3/mcL AO Auto Heme SS Monocytes/100 WBC (Bld) 7.4 % Invalid Interpretation Code 1.7 - 13.0 % AO Auto Heme SS Neutrophil, Absolute 3.80 103/mcL Invalid Interpretation Code 2.85 - 6.16 10^3/mcL AO Auto Heme SS Neutrophils/100 WBC (Bld) 69.6 % Invalid Interpretation Code 37.0 - 80.0 % AO Auto Heme SS Platelet mean volume (Bld) [Entitic vol] 7.7 fL Invalid Interpretation Code 7.4 - 10.4 fL AO Auto Heme SS Platelets (Bld) [#/Vol] 197 103/mcL Invalid Interpretation Code 130 - 400 10^3/mcL AO Auto Heme SS RBC (Bld) [#/Vol] 4.51 106/mcL Invalid Interpretation Code 4.04 - 6.13 10^6/mcL AO Auto Heme SS WBC (Bld) [#/Vol] 5.50 103/mcL Invalid Interpretation Code 4.60 - 10.80 10^3/mcL AO Auto Heme SS LABORATORYOrdered By: SYSTEM SYSTEM on 10-06-2021 Ferritin [Mass/Vol] 115.6 ng/mL Invalid Interpretation Code 26.0 - 388.0 ng/mL AH ADM SS GFR 97 ml/min/1.73sqm Invalid Interpretation Code AO Chemistry S GFR Non- 80 ml/min/1.73sqm Invalid Interpretation Code AO Chemistry S LABORATORYOrdered By: Azar Mills on 10-06-2021 HbA1c (Bld) [Mass fraction] 9.0 % Invalid Interpretation Code 4.3 - 6.4 % AO ADM SS LABORATORYOrdered By: Azar Mills on 05-16-2021 Albumin BCP dye [Mass/Vol] 4.2 G/dL Invalid Interpretation Code 3.5 - 5.0 G/dL AO ADM SS Albumin/Globulin [Mass ratio] 1.3 {ratio} Invalid Interpretation Code 1.1 - 2.5 ratio AO ADM SS ALP [Catalytic activity/Vol] 110 U/L Invalid Interpretation Code 40 - 135 U/L AO ADM SS ALT With P-5'-P [Catalytic activity/Vol] 99 U/L Invalid Interpretation Code 16 - 63 U/L AO ADM SS AST With P-5'-P [Catalytic activity/Vol] 72 U/L Invalid Interpretation Code 10 - 40 U/L AO ADM SS Bilirubin [Mass/Vol] 0.5 mg/dL Invalid Interpretation Code 0.2 - 1.0 mg/dL AO ADM SS Calcium [Mass/Vol] 9.3 mg/dL Invalid Interpretation Code 8.4 - 10.2 mg/dL AO ADM SS Chloride [Moles/Vol] 98 mmol/L Invalid Interpretation Code 98 - 107 mmol/L AO ADM SS Cholesterol [Mass/Vol] 287 mg/dL Invalid Interpretation Code 0 - 200 mg/dL AO ADM SS Cholesterol in HDL [Mass/Vol] 36 mg/dL Invalid Interpretation Code 40 - 60 mg/dL AO ADM SS CO2 [Moles/Vol] 28 mmol/L Invalid Interpretation Code 22 - 29 mmol/L AO ADM SS Creatinine [Mass/Vol] 0.85 mg/dL Invalid Interpretation Code 0.70 - 1.30 mg/dL AO ADM SS Electrolyte Balance 11.0 mEq/L Invalid Interpretation Code AO ADM SS Globulin 3.3 G/dL Invalid Interpretation Code AO ADM SS Glucose [Mass/Vol] 161 mg/dL Invalid Interpretation Code 70 - 105 mg/dL AO ADM SS LDL Cholesterol Not Valid Invalid Interpretation Code 0 - 130 AO ADM SS Comment on above: Result Comment: Trig lyceride >400 invalidates the calculated LDL. Potassium [Moles/Vol] 4.3 mmol/L Invalid Interpretation Code 3.5 - 5.1 mmol/L AO ADM SS Protein [Mass/Vol] 7.5 G/dL Invalid Interpretation Code 6.4 - 8.2 G/dL AO ADM SS Sodium [Moles/Vol] 137 mmol/L Invalid Interpretation Code 136 - 145 mmol/L AO ADM SS Triglyceride [Mass/Vol] 967 mg/dL Invalid Interpretation Code 0 - 150 mg/dL AO ADM SS TSH Qn 2.41 m[IU]/L Invalid Interpretation Code 0.36 - 3.74 mcIU/mL AO ADM SS Urea nitrogen [Mass/Vol] 6 mg/dL Invalid Interpretation Code 7 - 18 mg/dL AO ADM SS Urea nitrogen/Creatinine [Mass ratio] 7 ratio Invalid Interpretation Code 7 - 27 ratio AO ADM SS Vit. D 25-Hydroxy 74.3 ng/mL Invalid Interpretation Code AO ADM SS LABORATORYOrdered By: Peyton Dyson on 05-16-2021 Basophil, Absolute 0.00 103/mcL Invalid Interpretation Code 0.00 - 0.19 10^3/mcL AO Auto Heme SS Basophils/100 WBC (Bld) 0.4 % Invalid Interpretation Code 0.0 - 2.5 % AO Auto Heme SS Eosinophil, Absolute 0.20 103/mcL Invalid Interpretation Code 0.00 - 0.40 10^3/mcL AO Auto Heme SS Eosinophils/100 WBC (Bld) 3.8 % Invalid Interpretation Code 0.0 - 7.0 % AO Auto Heme SS Erythrocyte distribution width (RBC) [Ratio] 12.3 % Invalid Interpretation Code 11.5 - 14.5 % AO Auto Heme SS HbA1c (Bld) [Mass fraction] 6.5 % Invalid Interpretation Code 4.3 - 6.4 % AO ADM SS Hematocrit (Bld) [Volume fraction] 38.5 % Invalid Interpretation Code 42.0 - 52.0 % AO Auto Heme SS Hemoglobin (Bld) [Mass/Vol] 13.7 G/dL Invalid Interpretation Code 14.0 - 18.0 G/dL AO Auto Heme SS Lymphocyte, Absolute 0.90 103/mcL Invalid Interpretation Code 0.77 - 3.85 10^3/mcL AO Auto Heme SS Lymphocytes/100 WBC (Bld) 22.5 % Invalid Interpretation Code 10.0 - 50.0 % AO Auto Heme SS MCH (RBC) [Entitic mass] 33.4 pg Invalid Interpretation Code 27.0 - 31.2 pg AO Auto Heme SS MCHC (RBC) [Mass/Vol] 35.5 G/dL Invalid Interpretation Code 31.8 - 35.4 G/dL AO Auto Heme SS MCV (RBC) [Entitic vol] 94.1 fL Invalid Interpretation Code 80.0 - 94.0 fL AO Auto Heme SS Monocyte, Absolute 0.40 103/mcL Invalid Interpretation Code 0.15 - 1.00 10^3/mcL AO Auto Heme SS Monocytes/100 WBC (Bld) 9.1 % Invalid Interpretation Code 1.7 - 13.0 % AO Auto Heme SS Neutrophil, Absolute 2.60 103/mcL Invalid Interpretation Code 2.85 - 6.16 10^3/mcL AO Auto Heme SS Neutrophils/100 WBC (Bld) 64.2 % Invalid Interpretation Code 37.0 - 80.0 % AO Auto Heme SS Platelet mean volume (Bld) [Entitic vol] 7.8 fL Invalid Interpretation Code 7.4 - 10.4 fL AO Auto Heme SS Platelets (Bld) [#/Vol] 192 103/mcL Invalid Interpretation Code 130 - 400 10^3/mcL AO Auto Heme SS RBC (Bld) [#/Vol] 4.09 106/mcL Invalid Interpretation Code 4.04 - 6.13 10^6/mcL AO Auto Heme SS WBC (Bld) [#/Vol] 4.10 103/mcL Invalid Interpretation Code 4.60 - 10.80 10^3/mcL AO Auto Heme SS LABORATORYOrdered By: SYSTEM SYSTEM on 05-16-2021 GFR 113 ml/min/1.73sqm Invalid Interpretation Code AO Chemistry S GFR Non- 94 ml/min/1.73sqm Invalid Interpretation Code AO Chemistry S OBSOLETEon 02-08-2021 OBSOLETE Refill ([id number]) ----- AGA ADAN ([id number]) 1965 M Date Time Provider Department 02/08/21 KHLOE MULLINS [id number] During your visit today, we recorded the following information about you: J Carlos Quan E Learning Specialist [facility] 02/10/2021 9:30 AM Signed FOLLOW UP VISIT AND LAB WORK NEEDED Allergies As of Date: 02/08/2021 (No Known Allergies) Date Reviewed: 07/17/2020 Reviewed by: Khloe Mullins - Fully Assessed Reason for Visit: Refill Request [94] Visit Diagnoses:Osteoporosis of lumbar spine [M81.0] History of fracture due to fall [Z87.81] Encounter for ongoing osteoporosis non-bisphosphonate therapy [M81.0, Z79.899] Vitamin D deficiency [E55.9] Prescriptions as of 02/10/2021 - denosumab (PROLIA) 60 mg/mL Inject 1 mL subcutaneously once every 6 months. - cholecalciferol, Vitamin D3, (VITAMIN D3) 1,250 mcg (50,000 unit) cap capsule TAKE 1 CAPSULE BY MOUTH ONE TIME A WEEK. - gabapentin (NEURONTIN) 300 mg capsule TAKE 1 CAPSULE BY MOUTH AT 3PM AND 1 CAPSULE BY MOUTH AT BEDTIME - docusate sodium (COLACE ORAL) Take by mouth. - predniSONE (DELTASONE) 10 mg tablet Take 10 mg by mouth once daily. 11 days - valacyclovir HCl (VALTREX ORAL) Take by mouth. - metformin HCl (METFORMIN ORAL) Take 1,000 mg by mouth twice daily. - aspirin, enteric coated (ASPIRIN, ENTERIC COATED) 81 mg EC tablet Take 1 tablet by mouth twice daily for 14 days. - gabapentin (NEURONTIN) 300 mg capsule Take 1 capsule by mouth daily at bedtime for 30 days. - verapamil (CALAN, ISOPTIN) 40 mg tablet Take 40 mg by mouth three times daily. - methylPREDNISolone (MEDROL, TOYA,) 4 mg Dose-Pack Take 1 tablet by mouth as directed. As directed on package - B Complex Vitamins capsule Take 1 capsule by mouth once daily. - Multivitamin capsule Take 1 capsule by mouth once daily. - Ascorbic Acid (VITAMIN C) 1,000 mg tablet Take 1,000 mg by mouth once daily. Takes 2 tablets daily - Joan, Zingiber officinalis, (JOAN EXTRACT) 250 mg cap Take by mouth. 2 pills daily - buPROPion XL (WELLBUTRIN XL) 150 mg 24 hr tablet once daily. - fluticasone (FLONASE) 50 mcg/actuation nasal spray 2 Sprays once daily. - VIIBRYD 10 mg daily with breakfast. - hydrocortisone (ANUSOL-HC) 2.5 % rectal cream 1 Applicator by RECTAL route twice daily. - QUEtiapine (SEROQUEL) 50 mg tablet daily at bedtime. 2 pills at bedtime - ondansetron (ZOFRAN) 4 mg tablet every 8 hours as needed. - atenolol (TENORMIN) 50 mg tablet once daily. - QVAR 40 mcg/actuation inhaler 2 Puffs as needed. - gemfibrozil (LOPID) 600 mg tablet twice daily. - Omeprazole 40 mg capsule Take 40 mg by mouth once daily. Problem List As Of Date 02/08/2021 Noted Resolved Iron deficiency anemia due to chronic blood los*06/21/2017 Gastroesophageal reflux disease without esophag*06/21/2017 Constipation [K59.00] 06/21/2017 Rectal bleeding [K62.5] 06/21/2017 Abnormal nuclear stress test [R94.39] 10/06/2017 Acute pancreatitis [K85.90] 10/06/2017 Calculus of gallbladder with chronic cholecysti*11/17/2016 Elevated liver function tests [R79.89] 10/06/2017 Hyperlipidemia [E78.5] 10/06/2017 Hypertension [I10] 10/06/2017 ME (myocardial infarction) (HCC) [I21.9] 07/26/2006 Acquired valgus deformity of right ankle [M21.0*08/16/2018 12/07/2018 Ankle arthritis [M19.079] 08/16/2018 12/07/2018 Closed pelvic fracture (HCC) [S32.9XXA] 05/19/2019 Moderate episode of recurrent major depressive *01/23/2020 Generalized anxiety disorder [F41.1] 01/23/2020 Chronic bilateral low back pain with bilateral *02/26/2020 Encounter Status:Closed by [employer] J CARLOS CASTILLO on 02/10/21 [facility] 01-28-2021 [facility] Telephone (AGPOB2) ----- AGA ADAN ([id number]) 1965 M Date Time Provider Department 01/28/21 VALENTINA WATTS [id number] During your visit today, we recorded the following information about you: Valentina Watts APRN.CNP 01/29/2021 10:54 AM Signed Prolia refill signed. Valentina Watts APRN.CNP January 29, 2021 10:53 AM Allergies As of Date: 01/28/2021 (No Known Allergies) Date Reviewed: 07/17/2020 Reviewed by: Khloe Mullins - Fully Assessed Reason for Visit: Medication Follow-up [270] Cmt: PROLIA REFILL//EARL---CLLD PT TO REQ UPDATED INS CARD -- EXPRESS STATED INS OF JUN 2020 Medication Follow-up [270] Cmt: RCVD UPDATE FOR PROLIA REFILL TO BE SENT TO [place] (NO LONGER WITH [employer]) Medication Follow-up [270] Cmt: CLLD PT LM TO CLL OFFICE TO PROVIDE NEW INS INFO -- ALSO GAVE PT INFO FOR ASSISTANCE THROUGH [email or web address] IF NEEDED (PROLIA) Visit Diagnosis:Senile osteoporosis [M81.0] Order(s):denosumab (PROLIA) 60 mg/mLInject 1 mL subcutaneously once every 6 months.Disp: 1 SyringeRfl: 2 Prescriptions as of 02/10/2021 - denosumab (PROLIA) 60 mg/mL Inject 1 mL subcutaneously once every 6 months. - cholecalciferol, Vitamin D3, (VITAMIN D3) 1,250 mcg (50,000 unit) cap capsule TAKE 1 CAPSULE BY MOUTH ONE TIME A WEEK. - gabapentin (NEURONTIN) 300 mg capsule TAKE 1 CAPSULE BY MOUTH AT 3PM AND 1 CAPSULE BY MOUTH AT BEDTIME - docusate sodium (COLACE ORAL) Take by mouth. - predniSONE (DELTASONE) 10 mg tablet Take 10 mg by mouth once daily. 11 days - valacyclovir HCl (VALTREX ORAL) Take by mouth. - metformin HCl (METFORMIN ORAL) Take 1,000 mg by mouth twice daily. - aspirin, enteric coated (ASPIRIN, ENTERIC COATED) 81 mg EC tablet Take 1 tablet by mouth twice daily for 14 days. - gabapentin (NEURONTIN) 300 mg capsule Take 1 capsule by mouth daily at bedtime for 30 days. - verapamil (CALAN, ISOPTIN) 40 mg tablet Take 40 mg by mouth three times daily. - methylPREDNISolone (MEDROL, TOYA,) 4 mg Dose-Pack Take 1 tablet by mouth as directed. As directed on package - B Complex Vitamins capsule Take 1 capsule by mouth once daily. - Multivitamin capsule Take 1 capsule by mouth once daily. - Ascorbic Acid (VITAMIN C) 1,000 mg tablet Take 1,000 mg by mouth once daily. Takes 2 tablets daily - Joan, Zingiber officinalis, (JOAN EXTRACT) 250 mg cap Take by mouth. 2 pills daily - buPROPion XL (WELLBUTRIN XL) 150 mg 24 hr tablet once daily. - fluticasone (FLONASE) 50 mcg/actuation nasal spray 2 Sprays once daily. - VIIBRYD 10 mg daily with breakfast. - hydrocortisone (ANUSOL-HC) 2.5 % rectal cream 1 Applicator by RECTAL route twice daily. - QUEtiapine (SEROQUEL) 50 mg tablet daily at bedtime. 2 pills at bedtime - ondansetron (ZOFRAN) 4 mg tablet every 8 hours as needed. - atenolol (TENORMIN) 50 mg tablet once daily. - QVAR 40 mcg/actuation inhaler 2 Puffs as needed. - gemfibrozil (LOPID) 600 mg tablet twice daily. - Omeprazole 40 mg capsule Take 40 mg by mouth once daily. Problem List As Of Date 01/28/2021 Noted Resolved Iron deficiency anemia due to chronic blood los*06/21/2017 Gastroesophageal reflux disease without esophag*06/21/2017 Constipation [K59.00] 06/21/2017 Rectal bleeding [K62.5] 06/21/2017 Abnormal nuclear stress test [R94.39] 10/06/2017 Acute pancreatitis [K85.90] 10/06/2017 Calculus of gallbladder with chronic cholecysti*11/17/2016 Elevated liver function tests [R79.89] 10/06/2017 Hyperlipidemia [E78.5] 10/06/2017 Hypertension [I10] 10/06/2017 ME (myocardial infarction) (HCC) [I21.9] 07/26/2006 Acquired valgus deformity of right ankle [M21.0*08/16/2018 12/07/2018 Ankle arthritis [M19.079] 08/16/2018 12/07/2018 Closed pelvic fracture (HCC) [S32.9XXA] 05/19/2019 Moderate episode of recurrent major depressive *01/23/2020 Generalized anxiety disorder [F41.1] 01/23/2020 Chronic bilateral low back pain with bilateral *02/26/2020 Prescriptions ordered this encounter Disp Refills Start End PROLIA 60 MG/ML SUBCUTANEOUS SYRINGE 1 Sy* 2 01/29/2021 01/31/2021 Route: SUBCUTANEOUS Sig: Inject 1 mL subcutaneously once every 6 months. PROLIA 60 MG/ML SUBCUTANEOUS SYRINGE 1 Sy* 2 01/31/2021 Route: SUBCUTANEOUS Sig: Inject 1 mL subcutaneously once every 6 months. Medications Discontinued During This Encounter Prescriptions - zoledronic acid (RECLAST) 5 mg/100 mL pgbk PREMIX piggyback (Discontinued) Inject 100 mL intravenously one time only for 1 dose. Once only for 1 time - denosumab (PROLIA) 60 mg/mL (Discontinued) Inject 1 mL subcutaneously once every 6 months. - denosumab (PROLIA) 60 mg/mL (Discontinued) Inject 1 mL subcutaneously once every 6 months. Encounter Status:Closed by J CARLOS BOONE on 02/10/21 [facility] OBSOLETEon 01-04-2021 OBSOLETE Refill (AGHWW2) ----- AGA ADAN ([id number]) 1965 M Date Time Provider Department 01/04/21 KHLOE MULLINS AGHWW2 During your visit today, we recorded the following information about you: Lizzeth Wilkes E Learning Special[employer] Ppg 01/06/2021 7:31 AM Signed Received refill request from patients pharmacy. Lizzeth Marmolejo Ppg January 06, 2021 7:30 AM Allergies As of Date: 01/04/2021 (No Known Allergies) Date Reviewed: 07/17/2020 Reviewed by: Khloe Mullins - Fully Assessed Reason for Visit: Refill Request [94] Visit Diagnoses:Osteoporosis of lumbar spine [M81.0] History of fracture due to fall [Z87.81] Encounter for ongoing osteoporosis non-bisphosphonate therapy [M81.0, Z79.899] Vitamin D deficiency [E55.9] Order(s):cholecalciferol, Vitamin D3, (VITAMIN D3) 1,250 mcg (50,000 unit) cap capsuleTAKE 1 CAPSULE BY MOUTH ONE TIME A WEEK.Disp: 4 capsuleRfl: 0 Prescriptions as of 01/04/2021 Sig: CHOLECALCIFEROL (VITAMIN D3) * TAKE 1 CAPSULE BY MOUTH ONE T* COLACE ORAL Take by mouth. PREDNISONE 10 MG TABLET Take 10 mg by mouth once willi* VALTREX ORAL Take by mouth. PROLIA 60 MG/ML SUBCUTANEOUS * Inject 1 mL subcutaneously on* METFORMIN ORAL Take 1,000 mg by mouth twice * VERAPAMIL 40 MG TABLET Take 40 mg by mouth three abigail* METHYLPREDNISOLONE 4 MG TABLE* Take 1 tablet by mouth as dir* Patient not taking: Reported on 03/08/2020 VITAMIN B COMPLEX CAPSULE Take 1 capsule by mouth once * MULTIVITAMIN CAPSULE Take 1 capsule by mouth once * ASCORBIC ACID (VITAMIN C) 1,0* Take 1,000 mg by mouth once d* JOAN (ZINGIBER OFFICINALIS)* Take by mouth. 2 pills daily BUPROPION XL 150 MG TAB once daily. FLUTICASONE PROPIONATE 50 MCG* 2 Sprays once daily. VIIBRYD 10 MG TABLET daily with breakfast. HYDROCORTISONE 2.5 % TOPICAL * 1 Applicator by RECTAL route * Patient taking differently: 1 Applicator by RECTAL route * QUETIAPINE 50 MG TABLET daily at bedtime. 2 pills at * ONDANSETRON HCL 4 MG TABLET every 8 hours as needed. ATENOLOL 50 MG TABLET once daily. QVAR 40 MCG/ACTUATION METERED* 2 Puffs as needed. GEMFIBROZIL 600 MG TABLET twice daily. OMEPRAZOLE 40 MG CAPSULE,EBONIE* Take 40 mg by mouth once willi* Problem List As Of Date 01/04/2021 Noted Resolved Iron deficiency anemia due to chronic blood los*06/21/2017 Gastroesophageal reflux disease without esophag*06/21/2017 Constipation [K59.00] 06/21/2017 Rectal bleeding [K62.5] 06/21/2017 Abnormal nuclear stress test [R94.39] 10/06/2017 Acute pancreatitis [K85.90] 10/06/2017 Calculus of gallbladder with chronic cholecysti*11/17/2016 Elevated liver function tests [R79.89] 10/06/2017 Hyperlipidemia [E78.5] 10/06/2017 Hypertension [I10] 10/06/2017 ME (myocardial infarction) (HCC) [I21.9] 07/26/2006 Acquired valgus deformity of right ankle [M21.0*08/16/2018 12/07/2018 Ankle arthritis [M19.079] 08/16/2018 12/07/2018 Closed pelvic fracture (HCC) [S32.9XXA] 05/19/2019 Moderate episode of recurrent major depressive *01/23/2020 Generalized anxiety disorder [F41.1] 01/23/2020 Chronic bilateral low back pain with bilateral *02/26/2020 Prescriptions ordered this encounter Disp Refills Start End CHOLECALCIFEROL (VITAMIN D3) 1,250 M* 4 ca* 0 01/06/2021 Cmt: DX Code Needed PT NEEDS NEW RX. Route: ORAL Sig: TAKE 1 CAPSULE BY MOUTH ONE TIME A WEEK. Medications Discontinued During This Encounter Prescriptions - cholecalciferol, Vitamin D3, (VITAMIN D3) 1,250 mcg (50,000 unit) cap capsule (Discontinued) Take 1 capsule by mouth one time a week. Encounter Status:Closed by KHLOE MULLINS on 01/06/21 [facility] Kae [facility] ----- AGA ADAN ([id number]) 1965 M Date Time Provider Department 12/31/20 [facility] During your visit today, we recorded the following information about you: Lizzeth Zoie Katrin E Learning Specialist Ppg 12/31/2020 8:16 AM Signed J Carlos Quan Sophia Ppg P Ag Osteo Provider Shan Bowers Call pt to schedule prolia, remind him of lab work (if needed) and contact pharmacy to ok shipment to our office. Ilzzeth E Katrin E Learning Specialist Ppg 12/31/2020 8:16 AM Signed Spoke to patient and he said that he is not going to move forward with Prolia any longer. His health has "taken a turn for the worse" and he does not want to move forward with treatment. I told him to call the office if he decides he would like to move forward. Lizzeth Lino Katrin E Learning Specialist Ppg December 31, 2020 8:16 AM Allergies As of Date: 12/31/2020 (No Known Allergies) Date Reviewed: 07/17/2020 Reviewed by: Khloe Patel) Víctor - Fully Assessed Reason for Visit: Patient Update [1234] Prescriptions as of 12/31/2020 Sig: CHOLECALCIFEROL (VITAMIN D3) * Take 1 capsule by mouth one t* GABAPENTIN 300 MG CAPSULE TAKE 1 CAPSULE BY MOUTH AT 3P* COLACE ORAL Take by mouth. PREDNISONE 10 MG TABLET Take 10 mg by mouth once willi* VALTREX ORAL Take by mouth. PROLIA 60 MG/ML SUBCUTANEOUS * Inject 1 mL subcutaneously on* ZOLEDRONIC ACID 5 MG/100 ML I* Inject 100 mL intravenously o* METFORMIN ORAL Take 1,000 mg by mouth twice * ASPIRIN 81 MG TABLET,DELAYED * Take 1 tablet by mouth twice * GABAPENTIN 300 MG CAPSULE Take 1 capsule by mouth daily* VERAPAMIL 40 MG TABLET Take 40 mg by mouth three abigail* METHYLPREDNISOLONE 4 MG TABLE* Take 1 tablet by mouth as dir* Patient not taking: Reported on 03/08/2020 VITAMIN B COMPLEX CAPSULE Take 1 capsule by mouth once * MULTIVITAMIN CAPSULE Take 1 capsule by mouth once * ASCORBIC ACID (VITAMIN C) 1,0* Take 1,000 mg by mouth once d* JOAN (ZINGIBER OFFICINALIS)* Take by mouth. 2 pills daily BUPROPION XL 150 MG TAB once daily. FLUTICASONE PROPIONATE 50 MCG* 2 Sprays once daily. VIIBRYD 10 MG TABLET daily with breakfast. HYDROCORTISONE 2.5 % TOPICAL * 1 Applicator by RECTAL route * Patient taking differently: 1 Applicator by RECTAL route * QUETIAPINE 50 MG TABLET daily at bedtime. 2 pills at * ONDANSETRON HCL 4 MG TABLET every 8 hours as needed. ATENOLOL 50 MG TABLET once daily. QVAR 40 MCG/ACTUATION METERED* 2 Puffs as needed. GEMFIBROZIL 600 MG TABLET twice daily. OMEPRAZOLE 40 MG CAPSULE,EBONIE* Take 40 mg by mouth once willi* Problem List As Of Date 12/31/2020 Noted Resolved Iron deficiency anemia due to chronic blood los*06/21/2017 Gastroesophageal reflux disease without esophag*06/21/2017 Constipation [K59.00] 06/21/2017 Rectal bleeding [K62.5] 06/21/2017 Abnormal nuclear stress test [R94.39] 10/06/2017 Acute pancreatitis [K85.90] 10/06/2017 Calculus of gallbladder with chronic cholecysti*11/17/2016 Elevated liver function tests [R79.89] 10/06/2017 Hyperlipidemia [E78.5] 10/06/2017 Hypertension [I10] 10/06/2017 ME (myocardial infarction) (HCC) [I21.9] 07/26/2006 Acquired valgus deformity of right ankle [M21.0*08/16/2018 12/07/2018 Ankle arthritis [M19.079] 08/16/2018 12/07/2018 Closed pelvic fracture (HCC) [S32.9XXA] 05/19/2019 Moderate episode of recurrent major depressive *01/23/2020 Generalized anxiety disorder [F41.1] 01/23/2020 Chronic bilateral low back pain with bilateral *02/26/2020 Encounter Status:Closed by [employer] LIZZETH CASTILLO on 12/31/20 [facility] Kae 12-27-2020 [facility] Telephone (AGPOB2) ----- AGA ADAN ([id number]) 1965 M Date Time Provider Department 6/4/21 KHLOE MULLINS AGPOB2 During your visit today, we recorded the following information about you: Allergies As of Date: 12/27/2020 (No Known Allergies) Date Reviewed: 07/17/2020 Reviewed by: Khloe Mullins - Fully Assessed Reason for Visit: Medication Follow-up [270] Cmt: ANAMARIA ELLIOTT F/U TO [facility] Prescriptions as of 02/07/2021 - denosumab (PROLIA) 60 mg/mL Inject 1 mL subcutaneously once every 6 months. - cholecalciferol, Vitamin D3, (VITAMIN D3) 1,250 mcg (50,000 unit) cap capsule TAKE 1 CAPSULE BY MOUTH ONE TIME A WEEK. - gabapentin (NEURONTIN) 300 mg capsule TAKE 1 CAPSULE BY MOUTH AT 3PM AND 1 CAPSULE BY MOUTH AT BEDTIME - docusate sodium (COLACE ORAL) Take by mouth. - predniSONE (DELTASONE) 10 mg tablet Take 10 mg by mouth once daily. 11 days - valacyclovir HCl (VALTREX ORAL) Take by mouth. - metformin HCl (METFORMIN ORAL) Take 1,000 mg by mouth twice daily. - aspirin, enteric coated (ASPIRIN, ENTERIC COATED) 81 mg EC tablet Take 1 tablet by mouth twice daily for 14 days. - gabapentin (NEURONTIN) 300 mg capsule Take 1 capsule by mouth daily at bedtime for 30 days. - verapamil (CALAN, ISOPTIN) 40 mg tablet Take 40 mg by mouth three times daily. - methylPREDNISolone (MEDROL, TOYA,) 4 mg Dose-Pack Take 1 tablet by mouth as directed. As directed on package - B Complex Vitamins capsule Take 1 capsule by mouth once daily. - Multivitamin capsule Take 1 capsule by mouth once daily. - Ascorbic Acid (VITAMIN C) 1,000 mg tablet Take 1,000 mg by mouth once daily. Takes 2 tablets daily - Joan, Zingiber officinalis, (JOAN EXTRACT) 250 mg cap Take by mouth. 2 pills daily - buPROPion XL (WELLBUTRIN XL) 150 mg 24 hr tablet once daily. - fluticasone (FLONASE) 50 mcg/actuation nasal spray 2 Sprays once daily. - VIIBRYD 10 mg daily with breakfast. - hydrocortisone (ANUSOL-HC) 2.5 % rectal cream 1 Applicator by RECTAL route twice daily. - QUEtiapine (SEROQUEL) 50 mg tablet daily at bedtime. 2 pills at bedtime - ondansetron (ZOFRAN) 4 mg tablet every 8 hours as needed. - atenolol (TENORMIN) 50 mg tablet once daily. - QVAR 40 mcg/actuation inhaler 2 Puffs as needed. - gemfibrozil (LOPID) 600 mg tablet twice daily. - Omeprazole 40 mg capsule Take 40 mg by mouth once daily. Problem List As Of Date 12/27/2020 Noted Resolved Iron deficiency anemia due to chronic blood los*06/21/2017 Gastroesophageal reflux disease without esophag*06/21/2017 Constipation [K59.00] 06/21/2017 Rectal bleeding [K62.5] 06/21/2017 Abnormal nuclear stress test [R94.39] 10/06/2017 Acute pancreatitis [K85.90] 10/06/2017 Calculus of gallbladder with chronic cholecysti*11/17/2016 Elevated liver function tests [R79.89] 10/06/2017 Hyperlipidemia [E78.5] 10/06/2017 Hypertension [I10] 10/06/2017 ME (myocardial infarction) (HCC) [I21.9] 07/26/2006 Acquired valgus deformity of right ankle [M21.0*08/16/2018 12/07/2018 Ankle arthritis [M19.079] 08/16/2018 12/07/2018 Closed pelvic fracture (HCC) [S32.9XXA] 05/19/2019 Moderate episode of recurrent major depressive *01/23/2020 Generalized anxiety disorder [F41.1] 01/23/2020 Chronic bilateral low back pain with bilateral *02/26/2020 Encounter Status:Closed by [facility] [employer] J CARLOS CASTILLO on 02/07/21 [facility] CBCOrdered By: Della cazares on 11-26-2020 Hematocrit (Bld) [Volume fraction] 36.3 % Low 40.0 - 52.0 % [employer] Work Phone: Hemoglobin.gastrointe stinal spec 1 Ql (Stl) 12.9 g/dL Low 13.0 - 18.0 g/dL [facility] Work Phone: Interpretation and review of laboratory results Abnormal [facility] Work Phone: [phone] MCH (RBC) [Entitic mass] 33.2 pg 26.0 - 34.0 pg [employer] Work Phone: 1) MCHC (RBC) [Mass/Vol] 35.7 % 32.0 - 36.0 % [employer] Work Phone: 1) MCV (RBC) [Entitic vol] 93.0 fL 80.0 - 98.0 fL [employer] Work Phone: 1 Platelet distribution width (Bld) [Ratio] 12.4 % 11.5 - 14.5 % [email or web address] Work Phone: 1) Platelet mean volume (Bld) [Entitic vol] 7.3 fL Low 7.4 - 10.4 fL [email or web address] Work Phone: 1() Platelets (Bld) [#/Vol] 203 10*3/uL 140 - 440 10*3/uL [email or web address] Work Phone: 1() RBC (Bld) [#/Vol] 3.90 10*6/uL Low 4.40 - 5.9 0 10*6/uL [email or web address] Work Phone: 1) WBC (Bld) [#/Vol] 5.2 10*3/uL 3.6 - 10.7 10*3/uL [email or web address] Work Phone: 1) Test Performed by [facility], [address] [place], [place] [address] [facility] Work Phone: 1 Comp Panel with Mg Reflexon 11-26-2020 ALP [Catalytic activity/Vol] 84 U/L Normal 38-126 [facility] Comment on above: Performed By: #### M G3, HEMDF, LIPA4, CMP3 #### [facility] [address] [place] [address] ALT [Catalytic activity/Vol] 45 U/L Normal 0-49 [facility] Comment on above: Result Comment: The ALT test is performed by an updated assay method. Please note that the reference intervals have been changed and are now sex specific. Performed By: #### M G3, HEMDF, LIPA4, CMP3 #### [facility] [employer] [facility] [address] [place] [address] Calcium [Mass/Vol] 10.0 mg/dL Normal 8.4-10.4 [facility] Comment on above: Performed By: #### M G3, HEMDF, LIPA4, CMP3 #### [facility] [address] [place] [address] Glucose [Mass/Vol] 125 mg/dL High 70-100 [facility] Comment on above: Performed By: #### M G3, HEMDF, LIPA4, CMP3 #### [facility] [address] [place] [address] Urea nitrogen [Mass/Vol] 8 mg/dL Normal 7-20 [facility] Comment on above: Performed By: #### M G3, HEMDF, LIPA4, CMP3 #### [facility] [address] [place] [address] Anion gap [Moles/Vol] 11 mmol/L Normal 3-13 [facility] Comment on above: Performed By: #### Perez G3, HEMDF, LIPA4, CMP3 #### [facility] [address] [place] [address] AST [Catalytic activity/Vol] 54 U/L High 15-46 [facility] Comment on above: Performed By: #### M G3, HEMDF, LIPA4, CMP3 #### [facility] [address] [place] [address] Bilirubin [Mass/Vol] 1.2 mg/dL Normal 0.2-1.3 [facility] Comment on above: Performed By: #### M G3, HEMDF, LIPA4, CMP3 #### [facility] [address] [place] [address] CO2 [Moles/Vol] 22 mmol/L Normal 22-30 [facility] Comment on above: Performed By: #### M G3, HEMDF, LIPA4, CMP3 #### [facility] [address] [place] [address] Creatinine [Mass/Vol] 0.62 mg/dL Normal 0.52-1.25 [facility] Comment on above: Performed By: #### M G3, HEMDF, LIPA4, CMP3 #### [facility] [address] [place] [address] eGFR OTHER > 90.0 Normal >60 [facility] Comment on above: Result Comment: KDIG O guidelines provide the following GFR categories: Stage GFR(ml/min/1.73 m2) Terms G1 >=90 Normal or high G2 60-89 Mildly decreased* G3a 45-59 Mildly to moderately decreased G3b 30-44 Moderately to severely decreased G4 15-29 Severely decreased G5 <15 Kidney failure *Relative to young adult level. In the absence of evidence of kidney damage, neither GFR category G1 nor G2 fulfill the criteria for CKD. The CKD-EPI equation is validated in individuals 18 years of age and older. Currently the best equation for estimating glomerular filtration rate (GFR) from serum creatinine in children is the Bedside Cuevas equation. It is less accurate in patients with extremes of muscle mass, restriction of dietary protein, ingestion of creatine, extra-renal metabolism of creatinine, or treatment with medications that affect renal tubular creatinine secretion. Performed By: #### M G3, HEMDF, LIPA4, CMP3 #### [facility] [address] [place] [address] GFR/1.73 sq M.predicted among blacks MDRD (S/P/Bld) [Vol rate/Area] mL/min/{1.73_m2} Normal >60 [facility] Comment on above: Performed By: #### M G3, HEMDF, LIPA4, CMP3 #### [facility] [address] [place] [address] Protein [Mass/Vol] 7.7 g/dL Normal 6.3-8.2 [facility] Comment on above: Performed By: #### M G3, HEMDF, LIPA4, CMP3 #### [facility] [address] [place] [address] Chloride [Moles/Vol] 103 mmol/L Normal 98-107 [facility] Comment on above: Performed By: #### M G3, HEMDF, LIPA4, CMP3 #### [facility] [address] [place] [address] Potassium [Moles/Vol] 3.8 mmol/L Normal 3.5-5.1 [facility] Comment on above: Performed By: #### M G3, HEMDF, LIPA4, CMP3 #### [facility] [employer] [facility] [address] [place] [address] Sodium [Moles/Vol] 136 mmol/L Normal 135-145 [facility] Comment on above: Performed By: #### M G3, HEMDF, LIPA4, CMP3 #### [facility] [address] [place] [address] Albumin [Mass/Vol] 4.5 g/dL Normal 3.5-5.0 [facility] Comment on above: Performed By: #### M G3, HEMDF, LIPA4, CMP3 #### [facility] [employer] [facility] [address] [place] [address] Comprehensive Metabolic Pane l w/ Reflex to MGOrdered By: Della Lopez on 11-26-2020 Albumin [Mass/Vol] 4.5 g/dL 3.5 - 5.0 g/dL [email or web address] Work Phone: [phone] ALP (Bld) [Catalytic activity/Vol] 84 U/L 38 - 126 U/L [employer] Work Phone: [phone] ALT [Catalytic activity/Vol] 45 U/L 0 - 49 U/L [email or web address] Work Phone: [phone] Comment on above: The ALT test is perf ormed by an updated assay method. Please note that the reference intervals have been changed and are now sex specific. Anion gap [Moles/Vol] 11 mmol/L 3 - 13 mmol/L [employer] Work Phone: [phone] AST [Catalytic activity/Vol] 54 U/L High 15 - 46 U/L [employer] Work Phone: Bilirubin [Mass/Vol] 1.2 mg/dL 0.2 - 1 .3 mg/dL [employer] Work Phone: [phone] Calcium [Mass/Vol] 10.0 mg/dL 8.4 - 10. 4 mg/dL [employer] Work Phone: Chloride [Moles/Vol] 103 mmol/L 98 - 10 7 mmol/L [employer] Work Phone: [phone] CO2 [Moles/Vol] 22 mmol/L 22 - 30 mmol/L [employer] Work Phone: Creatinine [Mass/Vol] 0.62 mg/dL 0.52 - 1.25 mg/dL [email or web address] Work Phone: EGFR IF NonAfrican Israeli >90.0 >60 mL/min [email or web address] Work Phone: Comment on above: KDIGO guidelines pro vide the following GFR categories: Stage GFR(ml/min/1.73 m2) Terms G1 >=90 Normal or high G2 60-89 Mildly decreased* G3a 45-59 Mildly to moderately decreased G3b 30-44 Moderately to severely decreased G4 15-29 Severely decreased G5 <15 Kidney failure *Relative to young adult level. In the absence of evidence of kidney damage, neither GFR category G1 nor G2 fulfill the criteria for CKD. The CKD-EPI equation is validated in individuals 18 years of age and older. Currently the best equation for estimating glomerular filtration rate (GFR) from serum creatinine in children is the Bedside Cuevas equation. It is less accurate in patients with extremes of muscle mass, restriction of dietary protein, ingestion of creatine, extra-renal metabolism of creatinine, or treatment with medications that affect renal tubular creatinine secretion. Free PSA/Total PSA [Mass fraction] 7.7 g/dL 6.3 - 8.2 g/dL [email or web address] Work Phone: [phone] GFR/1.73 sq M.predicted among blacks MDRD (S/P/Bld) [Vol rate/Area] mL/min/{1.73_m2} >60 mL/min [facility] Phone: Glucose [Mass/Vol] 125 mg/dL High 70 - 100 mg/dL [email or web address] Work Phone: [phone] Potassium [Moles/Vol] 3.8 mmol/L 3.5 - 5.1 mmol/L [email or web address] Work Phone: Sodium [Moles/Vol] 136 mmol/L 135 - 145 mmol/L [facility] Phone: [phone] Urea nitrogen (BldV) [Mass/Vol] 8 mg/dL 7 - 20 mg/dL [facility] Phone: Glucose,Bedsideon 11-26-2020 Glucose [Mass/Vol] 136 mg/dL High 70-100 [facility] [employer] Comment on above: Result Comment: Test performed by glucose meter. Results may be 10%-15% lower than serum/plasma values. (CLIA ID [id number]) Performed By: #### B GLU #### [facility] [address] [place] [address] Glucose [Mass/Vol] 159 mg/dL High 70-100 [facility] Comment on above: Result Comment: Test performed by glucose meter. Results may be 10%-15% lower than serum/plasma values. (CLIA ID [id number]) Performed By: #### M G3, HEMDF, LIPA4, CMP3 #### [facility] [address] [place] [address] Hemogramon 11-26-2020 Erythrocyte distribution width (RBC) [Ratio] 12.4 % Normal 11.5-14.5 [facility] Comment on above: Performed By: #### M G3, HEMDF, LIPA4, CMP3 #### [facility] [address] [place] [address] Hematocrit (Bld) [Volume fraction] 36.3 % Low 40.0-52.0 [facility] Comment on above: Performed By: #### M G3, HEMDF, LIPA4, CMP3 #### [facility] [address] [place] [address] Hemoglobin (Bld) [Mass/Vol] 12.9 g/dL Low 13.0-18.0 [facility] Comment on above: Performed By: #### M G3, HEMDF, LIPA4, CMP3 #### [facility] [address] [place] [address] MCH (RBC) [Entitic mass] 33.2 pg Normal 26.0-34.0 [facility] Comment on above: Performed By: #### M G3, HEMDF, LIPA4, CMP3 #### [facility] [address] [place] [address] MCHC 35.7 % Normal 32.0-36.0 [facility] Comment on above: Performed By: #### M G3, HEMDF, LIPA4, CMP3 #### [facility] [address] [place] [address] MCV (RBC) [Entitic vol] 93.0 fL Normal 80.0-98.0 [facility] Comment on above: Performed By: #### M G3, HEMDF, LIPA4, CMP3 #### [facility] [address] [place] [address] Platelet mean volume (Bld) [Entitic vol] 7.3 fL Low 7.4-10.4 [facility] Comment on above: Performed By: #### Perez G3, HEMDF, LIPA4, CMP3 #### [facility] [address] [place] [address] Platelets (Bld) [#/Vol] 203 10*3/uL Normal 140-440 [facility] Comment on above: Performed By: #### M G3, HEMDF, LIPA4, CMP3 #### [facility] [address] [place] [address] RBC (Bld) [#/Vol] 3.90 10*6/uL Low 4.40-5.90 [facility] Comment on above: Performed By: #### Perez G3, HEMDF, LIPA4, CMP3 #### [facility] [address] [place] [address] WBC (Bld) [#/Vol] 5.2 10*3/uL Normal 3.6-10.7 [facility] Comment on above: Performed By: #### M G3, HEMDF, LIPA4, CMP3 #### [facility] [address] [place] [address] Lipaseon 11-26-2020 Lipase [Catalytic activity/Vol] 973 U/L High 23-300 [facility] Comment on above: Performed By: #### M G3, HEMDF, LIPA4, CMP3 #### [facility] [address] [place] [address] LipaseOrdered By: Evette mckeon on 11-26-2020 Lipase [Catalytic activity/Vol] 973 U/L High 23 - 300 U/L [facility] Work Phone: No Panel InformationOrdered By: Della Lopez on 11-26-2020 Interpretation and review of laboratory results Abnormal [facility] Work Phone: Test Performed by [facility], [address] [place] [address] [facility] Work Phone: 1 POCT GlucoseOrdered By: Ramez Lopez on 11-26-2020 Glucose [Mass/Vol] 136 mg/dL High 70 - 100 mg/dL [facility] Work Phone: 1 Comment on above: Test performed by gl ucose meter. Results may be 10%-15% lower than serum/plasma values. (CLIA ID [id number]) Interpretation and review of laboratory results Abnormal [facility] Work Phone: 1 Test Performed by [facility], [address] [place] [address] [facility] Work Phone: Glucose [Mass/Vol] 159 mg/dL High 70 - 100 mg/dL [facility] Work Phone: Comment on above: Test performed by gl ucose meter. Results may be 10%-15% lower than serum/plasma values. (CLIA ID [id number]) Interpretation and review of laboratory results Abnormal [facility] Work Phone: 1 Test Performed by [facility] [employer] [facility], [address] [place] [address] [facility] Work Phone: CBCOrdered By: Della cazares on 11-25-2020 Hematocrit (Bld) [Volume fraction] 37.0 % Low 40.0 - 52.0 % [facility] Work Phone: Hemoglobin.gastrointe stinal spec 1 Ql (Stl) 13.1 g/dL 13.0 - 18.0 g/dL [facility] Work Phone: Interpretation and review of laboratory results Abnormal [facility] Work Phone: 1 MCH (RBC) [Entitic mass] 32.8 pg 26.0 - 34.0 pg [facility] Work Phone: MCHC (RBC) [Mass/Vol] 35.3 % 32.0 - 36.0 % [facility] Work Phone: MCV (RBC) [Entitic vol] 92.7 fL 80.0 - 98.0 fL [email or web address] Work Phone: Platelet distribution width (Bld) [Ratio] 12.5 % 11.5 - 14.5 % [email or web address] Work Phone: Platelet mean volume (Bld) [Entitic vol] 7.6 fL 7.4 - 10.4 fL [email or web address] Work Phone: Platelets (Bld) [#/Vol] 211 10*3/uL 140 - 440 10*3/uL [employer] Work Phone: RBC (Bld) [#/Vol] 3.99 10*6/uL Low 4.40 - 5.9 0 10*6/uL [employer] Work Phone: WBC (Bld) [#/Vol] 7.5 10*3/uL 3.6 - 10.7 10*3/uL [email or web address] Work Phone: Test Performed by [facility], [address] [place] [address] [email or web address] Work Phone: [phone] CR Ankle 2 Views Righton CR Ankle 2 Views Right [facility]: [id number] Radiology ACCESSION EXAM DATE/TIME PROCEDURE ORDERING PROVIDER [id number] 11/25/2020 20:56 EDT CR Ankle 2 Views Right EVETTE PERRY CPT code 14654 Reason For Exam (CR Ankle 2 Views Right) Fall with ankle pain , right please include the foot Report RIGHT FOOT AND ANKLE: CLINICAL INDICATION: Pain. TECHNIQUE: AP and lateral foot AP lateral ankle COMPARISON: 07/20/2017 FINDINGS: There is surgical fusion of the ankle and hindfoot with a plate extending from the tibia to the talus and screws extending from the talus to the calcaneus. Cortical irregularity is noted about the medial aspect of the distal tibia. There is generalized soft tissue swelling. Osteopenia is noted. IMPRESSION: Fusion of the ankle and hindfoot. No acute fracture or dislocation. Cortical regularity about the medial aspect of the distal tibia may be related to prior injury. Infection would be considered less likely. Report Dictated on Workstation: [email or web address] Final Dictating Physician: MD PA JEFFREY Signed Date and Time: 11/25/2020 9:16 pm Signed by: MD PA JEFFREY Transcribed Date and Time: 11/25/2020 9:17 [facility] CR Foot 2 Views Righton CR Foot 2 Views Right Patient Name: AGA RÍOS Diagnostic Radiology ACCESSION EXAM DATE/TIME PROCEDURE ORDERING PROVIDER [id number] 11/25/2020 20:56 EDT CR Foot 2 Views Right EVETTE PERRY CPT code 17022 Reason For Exam (CR Foot 2 Views Right) fall with ankle pain Report RIGHT FOOT AND ANKLE: CLINICAL INDICATION: Pain. TECHNIQUE: AP and lateral foot AP lateral ankle COMPARISON: 07/20/2017 FINDINGS: There is surgical fusion of the ankle and hindfoot with a plate extending from the tibia to the talus and screws extending from the talus to the calcaneus. Cortical irregularity is noted about the medial aspect of the distal tibia. There is generalized soft tissue swelling. Osteopenia is noted. IMPRESSION: Fusion of the ankle and hindfoot. No acute fracture or dislocation. Cortical regularity about the medial aspect of the distal tibia may be related to prior injury. Infection would be considered less likely. Report Dictated on Workstation: [facility] Final Dictating Physician: MD PA JEFFREY Signed Date and Time: 11/25/2020 9:16 pm Signed by: MD PA JEFFREY Transcribed Date and Time: 11/25/2020 9:17 [facility] CT Abdomen and Pelvis W cont rast IVOrdered By: Peyman Martinez on 11-25-2020 Patient Name: AGA SO Computed Tomography ACCESSION EXAM DATE/TIME PROCEDURE ORDERING PROVIDER [id number] 11/25/2020 20:[address] Abdomen/Pelvis w/ IV Flora MARTINEZ JEFFREY D Contrast (IV Onl CPT code 24724 Q9967 Reason For Exam (CT Abdomen/Pelvis w/ IV Contrast (IV Onl) Acute pancreatitis Hx of pancreatic cyst Report CT ABDOMEN AND PELVIS CLINICAL INDICATION: Acute pancreatitis Hx of pancreatic cyst TECHNIQUE: CT scan of the abdomen and pelvis with IV contrast. Multiplanar reformations. COMPARISON: 02/01/2019 FINDINGS: Lung bases are clear. No free intraperitoneal gas seen. Liver shows no significant abnormality. Normal-appearing biliary tree status-post cholecystectomy. Spleen shows no significant abnormality. Adrenal glands show no significant abnormality. Kidneys show no significant abnormality. Minor stranding around the pancreatic head compatible with acute pancreatitis. Previously seen cystic lesion in the pancreatic head/uncinate process is only questionably visualized, 7 x 5 mm, and much smaller than on the prior study. Mildly dilated pancreatic duct. Nonaneurysmal abdominal aorta. No bowel obstruction. Beam hardening artifact from left hip hardware obscures underlying soft tissues. Appendix appears normal. IMPRESSION: 1. Acute pancreatitis. Previously seen cystic lesion in the uncinate process much smaller than on the previous study. Mildly dilated pancreatic duct, similar to the previous study. Computed Tomography Report Report Dictated on --- Final --- Dictating Physician: MD ARANDA JOHN R Signed Date and Time: 11/25/2020 9:02 pm Signed by: MD ARANDA JOHN R Transcribed Date and Time: 11/25/2020 9:04 [facility] Work Phone: [facility], [facility] Incoming Radiology Results From [facility] - 11/25/2020 9:04 PM EDT Patient Name: AGA ADAN Computed Tomography ACCESSION EXAM DATE/TIME PROCEDURE ORDERING PROVIDER [id number] 11/25/2020 20:[address] Abdomen/Pelvis w/ IV Flora MARTINEZ JEFFREY D Contrast (IV Onl CPT code 08125 Q9967 Reason For Exam (CT Abdomen/Pelvis w/ IV Contrast (IV Onl) Acute pancreatitis Hx of pancreatic cyst Report CT ABDOMEN AND PELVIS CLINICAL INDICATION: Acute pancreatitis Hx of pancreatic cyst TECHNIQUE: CT scan of the abdomen and pelvis with IV contrast. Multiplanar reformations. COMPARISON: 02/01/2019 FINDINGS: Lung bases are clear. No free intraperitoneal gas seen. Liver shows no significant abnormality. Normal-appearing biliary tree status-post cholecystectomy. Spleen shows no significant abnormality. Adrenal glands show no significant abnormality. Kidneys show no significant abnormality. Minor stranding around the pancreatic head compatible with acute pancreatitis. Previously seen cystic lesion in the pancreatic head/uncinate process is only questionably visualized, 7 x 5 mm, and much smaller than on the prior study. Mildly dilated pancreatic duct. Nonaneurysmal abdominal aorta. No bowel obstruction. Beam hardening artifact from left hip hardware obscures underlying soft tissues. Appendix appears normal. IMPRESSION: 1. Acute pancreatitis. Previously seen cystic lesion in the uncinate process much smaller than on the previous study. Mildly dilated pancreatic duct, similar to the previous study. Computed Tomography Report Report Dictated on --- Final --- Dictating Physician: MD ARANDA JOHN R Signed Date and Time: 11/25/2020 9:02 pm Signed by: MD ARANDA JOHN R Transcribed Date and Time: 11/25/2020 9:04 [facility] Work Phone: CT Abdomen/Pelvis w/ Contras ton 11-25-2020 CT Abdomen/Pelvis w/ Contrast [facility]: [id number] Computed Tomography ACCESSION EXAM DATE/TIME PROCEDURE ORDERING PROVIDER [id number] 11/25/2020 20:[address] Abdomen/Pelvis w/ IV Flora MARTINEZ JEFFREY D Contrast (IV Onl CPT code 88731 Q9967 Reason For Exam (CT Abdomen/Pelvis w/ IV Contrast (IV Onl) Acute pancreatitis Hx of pancreatic cyst Report CT ABDOMEN AND PELVIS CLINICAL INDICATION: Acute pancreatitis Hx of pancreatic cyst TECHNIQUE: CT scan of the abdomen and pelvis with IV contrast. Multiplanar reformations. COMPARISON: 02/01/2019 FINDINGS: Lung bases are clear. No free intraperitoneal gas seen. Liver shows no significant abnormality. Normal-appearing biliary tree status-post cholecystectomy. Spleen shows no significant abnormality. Adrenal glands show no significant abnormality. Kidneys show no significant abnormality. Minor stranding around the pancreatic head compatible with acute pancreatitis. Previously seen cystic lesion in the pancreatic head/uncinate process is only questionably visualized, 7 x 5 mm, and much smaller than on the prior study. Mildly dilated pancreatic duct. Nonaneurysmal abdominal aorta. No bowel obstruction. Beam hardening artifact from left hip hardware obscures underlying soft tissues. Appendix appears normal. IMPRESSION: 1. Acute pancreatitis. Previously seen cystic lesion in the uncinate process much smaller than on the previous study. Mildly dilated pancreatic duct, similar to the previous study. Computed Tomography Report Report Dictated on Final Dictating Physician: MD ARANDA JOHN R Signed Date and Time: 11/25/2020 9:02 pm Signed by: MD ARANDA JOHN R Transcribed Date and Time: 11/25/2020 9:04 Normal [facility] CT HEAD WO CONTRASTOrdered B y: Evette Perry on 11-25-2020 [id number] Computed Tomography ACCESSION EXAM DATE/TIME PROCEDURE ORDERING PROVIDER [id number] 11/25/2020 13:[address] Head or Brain w/o EVETTE PERRY Contrast CPT code 34240 Reason For Exam (CT Head or Brain w/o Contrast) fall with headinjury, scalp hematoma Report HEAD CT WITHOUT IV CONTRAST History: Head injury, scalp hematoma, recent fall Comparison: 02/20/2020 Technique: Multislice volume acquisition axial CT sections were obtained from the base to the vertex of the brain without IV contrast enhancement. Multiplanar sagittal and coronal reconstructed images also obtained. Findings: There is mild parenchymal volume loss with prominent cortical sulci, fissures, and ventricles. There is no intracranial hemorrhage, midline shift, or other mass effect in the brain. The exam is limited without contrast enhancement. There is mild left frontoparietal scalp swelling/hematoma The paranasal sinuses are not completely included but the visualized portions and the bilateral mastoid air cells are clear. . IMPRESSION: Mild parenchymal volume loss. No evidence of acute intracranial process. Scalp hematoma. Report Dictated on --- Final --- Dictating Physician: MD SMITH AHMAD Signed Date and Time: 11/25/2020 2:04 pm Signed by: MD SMITH AHMAD Transcribed Date and Time: 11/25/2020 2:05 [facility] Work Phone: [facility], [facility] Incoming Radiology Results From [facility] - 11/25/2020 2:05 PM EDT Patient Name: AGA ADAN Computed Tomography ACCESSION EXAM DATE/TIME PROCEDURE ORDERING PROVIDER [id number] 11/25/2020 13:[address] Head or Brain w/o MUKKAMALLA, MAHAVEER Contrast CPT code 40719 Reason For Exam (CT Head or Brain w/o Contrast) fall with headinjury, scalp hematoma Report HEAD CT WITHOUT IV CONTRAST History: Head injury, scalp hematoma, recent fall Comparison: 02/20/2020 Technique: Multislice volume acquisition axial CT sections were obtained from the base to the vertex of the brain without IV contrast enhancement. Multiplanar sagittal and coronal reconstructed images also obtained. Findings: There is mild parenchymal volume loss with prominent cortical sulci, fissures, and ventricles. There is no intracranial hemorrhage, midline shift, or other mass effect in the brain. The exam is limited without contrast enhancement. There is mild left frontoparietal scalp swelling/hematoma The paranasal sinuses are not completely included but the visualized portions and the bilateral mastoid air cells are clear. . IMPRESSION: Mild parenchymal volume loss. No evidence of acute intracranial process. Scalp hematoma. Report Dictated on --- Final --- Dictating Physician: MD SMITH AHMAD Signed Date and Time: 11/25/2020 2:04 pm Signed by: MD SMITH AHMAD Transcribed Date and Time: 11/25/2020 2:05 [facility] Work Phone: CT Head or Brain w/o Contras ton 11-25-2020 CT Head or Brain w/o Contrast Patient Name: AGA ADAN Computed Tomography ACCESSION EXAM DATE/TIME PROCEDURE ORDERING PROVIDER [id number] 11/25/2020 13:[address] Head or Brain w/o MUKKAMALLA, MAHAVEER Contrast CPT code 02799 Reason For Exam (CT Head or Brain w/o Contrast) fall with headinjury, scalp hematoma Report HEAD CT WITHOUT IV CONTRAST History: Head injury, scalp hematoma, recent fall Comparison: 02/20/2020 Technique: Multislice volume acquisition axial CT sections were obtained from the base to the vertex of the brain without IV contrast enhancement. Multiplanar sagittal and coronal reconstructed images also obtained. Findings: There is mild parenchymal volume loss with prominent cortical sulci, fissures, and ventricles. There is no intracranial hemorrhage, midline shift, or other mass effect in the brain. The exam is limited without contrast enhancement. There is mild left frontoparietal scalp swelling/hematoma The paranasal sinuses are not completely included but the visualized portions and the bilateral mastoid air cells are clear. . IMPRESSION: Mild parenchymal volume loss. No evidence of acute intracranial process. Scalp hematoma. Report Dictated on Final Dictating Physician: MD SMITH AHMAD Signed Date and Time: 11/25/2020 2:04 pm Signed by: MD SMITH AHMAD Transcribed Date and Time: 11/25/2020 2:05 Normal [facility] Comp Panel with Mg Reflexon 11-25-2020 Calcium [Mass/Vol] 9.8 mg/dL Normal 8.4-10.4 [facility] Comment on above: Order Comment: SLIGH T HEMOLYSIS Performed By: #### C MP3M, HEMOG, LIPA4 #### [facility] [address] [place] [address] ALP [Catalytic activity/Vol] 77 U/L Normal 38-126 [facility] Comment on above: Order Comment: SLIGH T HEMOLYSIS Performed By: #### C MP3M, HEMOG, LIPA4 #### [facility] [address] [place] [address] ALT [Catalytic activity/Vol] 39 U/L Normal 0-49 [facility] Comment on above: Order Comment: SLIGH T HEMOLYSIS Result Comment: The ALT test is performed by an updated assay method. Please note that the reference intervals have been changed and are now sex specific. Performed By: #### C MP3M, HEMOG, LIPA4 #### [facility] [address] [place] [address] Anion gap [Moles/Vol] 11 mmol/L Normal 3-13 [facility] Comment on above: Order Comment: SLIGH T HEMOLYSIS Performed By: #### C MP3M, HEMOG, LIPA4 #### [facility] [address] [place] [address] AST [Catalytic activity/Vol] 46 U/L Normal 15-46 [facility] Comment on above: Order Comment: SLIGH T HEMOLYSIS Performed By: #### C MP3M, HEMOG, LIPA4 #### [facility] [address] [place] [address] Bilirubin [Mass/Vol] 1.2 mg/dL Normal 0.2-1.3 [facility] Comment on above: Order Comment: SLIGH T HEMOLYSIS Performed By: #### C MP3M, HEMOG, LIPA4 #### [facility] [address] [place] [address] CO2 [Moles/Vol] 23 mmol/L Normal 22-30 [facility] Comment on above: Order Comment: SLIGH T HEMOLYSIS Performed By: #### C MP3M, HEMOG, LIPA4 #### [facility] [address] [place] [address] Creatinine [Mass/Vol] 0.55 mg/dL Normal 0.52-1.25 [facility] Comment on above: Order Comment: SLIGH T HEMOLYSIS Performed By: #### C MP3M, HEMOG, LIPA4 #### [facility] [address] [place] [address] eGFR OTHER > 90.0 Normal >60 [facility] Comment on above: Order Comment: SLIGH T HEMOLYSIS Result Comment: KDIG O guidelines provide the following GFR categories: Stage GFR(ml/min/1.73 m2) Terms G1 >=90 Normal or high G2 60-89 Mildly decreased* G3a 45-59 Mildly to moderately decreased G3b 30-44 Moderately to severely decreased G4 15-29 Severely decreased G5 <15 Kidney failure *Relative to young adult level. In the absence of evidence of kidney damage, neither GFR category G1 nor G2 fulfill the criteria for CKD. The CKD-EPI equation is validated in individuals 18 years of age and older. Currently the best equation for estimating glomerular filtration rate (GFR) from serum creatinine in children is the Bedside Cuevas equation. It is less accurate in patients with extremes of muscle mass, restriction of dietary protein, ingestion of creatine, extra-renal metabolism of creatinine, or treatment with medications that affect renal tubular creatinine secretion. Performed By: #### C MP3M, HEMOG, LIPA4 #### [facility] [address] [place] [address] GFR/1.73 sq M.predicted among blacks MDRD (S/P/Bld) [Vol rate/Area] mL/min/{1.73_m2} Normal >60 [facility] Comment on above: Order Comment: SLIGH T HEMOLYSIS Performed By: #### C MP3M, HEMOG, LIPA4 #### [facility] [address] [place] [address] Glucose [Mass/Vol] 141 mg/dL High 70-100 [facility] Comment on above: Order Comment: SLIGH T HEMOLYSIS Performed By: #### C MP3M, HEMOG, LIPA4 #### [facility] [address] [place] [address] Protein [Mass/Vol] 7.9 g/dL Normal 6.3-8.2 [facility] Comment on above: Order Comment: SLIGH T HEMOLYSIS Performed By: #### C MP3M, HEMOG, LIPA4 #### [facility] [address] [place] [address] Urea nitrogen [Mass/Vol] 8 mg/dL Normal 7-20 [facility] Comment on above: Order Comment: SLIGH T HEMOLYSIS Performed By: #### C MP3M, HEMOG, LIPA4 #### [facility] [address] [place] [address] Potassium [Moles/Vol] 3.7 mmol/L Normal 3.5-5.1 [facility] Comment on above: Order Comment: SLIGH T HEMOLYSIS Performed By: #### C MP3M, HEMOG, LIPA4 #### [facility] [address] [place] [address] Albumin [Mass/Vol] 4.5 g/dL Normal 3.5-5.0 [facility] Comment on above: Order Comment: SLIGH T HEMOLYSIS Performed By: #### C MP3M, HEMOG, LIPA4 #### [facility] [address] [place] [address] Chloride [Moles/Vol] 98 mmol/L Normal 98-107 [facility] Comment on above: Order Comment: SLIGH T HEMOLYSIS Performed By: #### C MP3M, HEMOG, LIPA4 #### [facility] [address] [place] [address] Sodium [Moles/Vol] 131 mmol/L Low 135-145 [facility] Comment on above: Order Comment: SLIGH T HEMOLYSIS Performed By: #### C MP3M, HEMOG, LIPA4 #### [facility] [address] [place] [address] Comprehensive Metabolic Pane l w/ Reflex to MGOrdered By: Della Lopez on 11-25-2020 Albumin [Mass/Vol] 4.5 g/dL 3.5 - 5.0 g/dL [facility] Work Phone: [phone] ALP (Bld) [Catalytic activity/Vol] 77 U/L 38 - 126 U/L [facility] Work Phone: ALT [Catalytic activity/Vol] 39 U/L 0 - 49 U/L [facility] Work Phone: [phone] Comment on above: The ALT test is perf ormed by an updated assay method. Please note that the reference intervals have been changed and are now sex specific. Anion gap [Moles/Vol] 11 mmol/L 3 - 13 mmol/L [facility] Work Phone: [phone] AST [Catalytic activity/Vol] 46 U/L 15 - 46 U/L [facility] Work Phone: Bilirubin [Mass/Vol] 1.2 mg/dL 0.2 - 1 .3 mg/dL [facility] Work Phone: [phone] Calcium [Mass/Vol] 9.8 mg/dL 8.4 - 10. 4 mg/dL [facility] Work Phone: Chloride [Moles/Vol] 98 mmol/L 98 - 10 7 mmol/L [facility] Work Phone: [phone] CO2 [Moles/Vol] 23 mmol/L 22 - 30 mmol/L [facility] Work Phone: Creatinine [Mass/Vol] 0.55 mg/dL 0.52 - 1.25 mg/dL [employer] Work Phone: [phone] EGFR IF NonAfrican Israeli >90.0 >60 mL/min [facility] Work Phone: [phone] Comment on above: KDIGO guidelines pro vide the following GFR categories: Stage GFR(ml/min/1.73 m2) Terms G1 >=90 Normal or high G2 60-89 Mildly decreased* G3a 45-59 Mildly to moderately decreased G3b 30-44 Moderately to severely decreased G4 15-29 Severely decreased G5 <15 Kidney failure *Relative to young adult level. In the absence of evidence of kidney damage, neither GFR category G1 nor G2 fulfill the criteria for CKD. The CKD-EPI equation is validated in individuals 18 years of age and older. Currently the best equation for estimating glomerular filtration rate (GFR) from serum creatinine in children is the Bedside Cuevas equation. It is less accurate in patients with extremes of muscle mass, restriction of dietary protein, ingestion of creatine, extra-renal metabolism of creatinine, or treatment with medications that affect renal tubular creatinine secretion. Free PSA/Total PSA [Mass fraction] 7.9 g/dL 6.3 - 8.2 g/dL [facility] Work Phone: [phone] GFR/1.73 sq M.predicted among blacks MDRD (S/P/Bld) [Vol rate/Area] mL/min/{1.73_m2} >60 mL/min [facility] Work Phone: [phone] Glucose [Mass/Vol] 141 mg/dL High 70 - 100 mg/dL [facility] Work Phone: [phone] Interpretation and review of laboratory results Abnormal [facility] Work Phone: [phone] Potassium [Moles/Vol] 3.7 mmol/L 3.5 - 5.1 mmol/L [facility] Work Phone: [phone] Sodium [Moles/Vol] 131 mmol/L Low 135 - 145 mmol/L [facility] Work Phone: [phone] Urea nitrogen (BldV) [Mass/Vol] 8 mg/dL 7 - 20 mg/dL [facility] Work Phone: [phone] Test Performed by [facility], [address] [place] [address] Str. [place], [place] [address] SLIGHT HEMOLYSIS [facility] Work Phone: Glucose,Bedsideon 11-25-2020 Glucose [Mass/Vol] 124 mg/dL High 70-100 [facility] Comment on above: Result Comment: Test performed by glucose meter. Results may be 10%-15% lower than serum/plasma values. (CLIA ID [id number]) Performed By: #### M G3, HEMDF, LIPA4, CMP3 #### [employer] [address] [place] [address] Glucose [Mass/Vol] 135 mg/dL High 70-100 [facility] Comment on above: Result Comment: Test performed by glucose meter. Results may be 10%-15% lower than serum/plasma values. (CLIA ID [id number]) Performed By: #### M G3, HEMDF, LIPA4, CMP3 #### [employer] [address] [place] [address] Glucose [Mass/Vol] 145 mg/dL High 70-100 [facility] Comment on above: Result Comment: Test performed by glucose meter. Results may be 10%-15% lower than serum/plasma values. (CLIA ID [id number]) Performed By: #### M G3, HEMDF, LIPA4, CMP3 #### [employer] [address] [place] [address] Glucose [Mass/Vol] 168 mg/dL High 70-[address] [place] [address] Comment on above: Result Comment: Test performed by glucose meter. Results may be 10%-15% lower than serum/plasma values. (CLIA ID [id number]) Performed By: #### M G3, HEMDF, LIPA4, CMP3 #### [employer] [address] [place] [place] [address] Hemoglobin A1Con 11-25-2020 Glucose [Mass/Vol] 108 mg/dL Normal [facility] Comment on above: Performed By: #### M G3, HEMDF, LIPA4, CMP3 #### [employer] [address] [place] [address] HbA1c (Bld) [Mass fraction] 5.4 % Normal [facility] Comment on above: Result Comment: Norm al less than 5.7% Prediabetes 5.7% to 6.4% Diabetes 6.5% or higher --HgbA1C levels may not be accurate in patients who have renal disease, received recent blood transfusions, are anemic, or who have dyshemoglobinemia. Performed By: #### M G3, HEMDF, LIPA4, CMP3 #### [facility] [address] [place] [address] Hemoglobin [id number] By: Jane Perry on 11-25-2020 HbA1c (Bld) [Mass fraction] 5.4 % [facility] Work Phone: Comment on above: Normal less than 5.7 % Prediabetes 5.7% to 6.4% Diabetes 6.5% or higher --HgbA1C levels may not be accurate in patients who have renal disease, received recent blood transfusions, are anemic, or who have dyshemoglobinemia. Magnesium [Mass/Vol] 108 mg/dL [facility] Work Phone: Test Performed by [facility], [address] [place], [place] [id number] [place] [address] Work Phone: Hemogramon 11-25-2020 Erythrocyte distribution width (RBC) [Ratio] 12.5 % Normal 11.5-14.5 [facility] Comment on above: Performed By: #### C MP3M, HEMOG, LIPA4 #### [facility] [address] [place] [address] Hematocrit (Bld) [Volume fraction] 37.0 % Low 40.0-52.0 [facility] Comment on above: Performed By: #### C MP3M, HEMOG, LIPA4 #### [facility] [address] [facility] [place] [address] Hemoglobin (Bld) [Mass/Vol] 13.1 g/dL Normal 13.0-18.0 [facility] Comment on above: Performed By: #### C MP3M, HEMOG, LIPA4 #### [facility] [address] [facility] [place] [address] MCH (RBC) [Entitic mass] 32.8 pg Normal 26.0-34.0 [facility] Comment on above: Performed By: #### C MP3M, HEMOG, LIPA4 #### [facility] [address] [place] [address] MCHC 35.3 % Normal 32.0-36.0 [facility] Comment on above: Performed By: #### C MP3M, HEMOG, LIPA4 #### [facility] [address] [place] [address] MCV (RBC) [Entitic vol] 92.7 fL Normal 80.0-98.0 [facility] Comment on above: Performed By: #### C MP3M, HEMOG, LIPA4 #### [facility] [address] [place] [address] Platelet mean volume (Bld) [Entitic vol] 7.6 fL Normal 7.4-10.4 [facility] Comment on above: Performed By: #### C MP3M, HEMOG, LIPA4 #### [facility] [address] [place] [address] Platelets (Bld) [#/Vol] 211 10*3/uL Normal 140-440 [facility] Comment on above: Performed By: #### C MP3M, HEMOG, LIPA4 #### [facility] [address] [place] [address] RBC (Bld) [#/Vol] 3.99 10*6/uL Low 4.40-5.90 [facility] Comment on above: Performed By: #### C MP3M, HEMOG, LIPA4 #### [facility] [address] [place] [address] WBC (Bld) [#/Vol] 7.5 10*3/uL Normal 3.6-10.7 [facility] Comment on above: Performed By: #### C MP3M, HEMOG, LIPA4 #### [facility] [address] [place] [address] Lipaseon 11-25-2020 Lipase [Catalytic activity/Vol] 5578 U/L High 23-300 [facility] Comment on above: Order Comment: SLIGH T HEMOLYSIS Performed By: #### C MP3M, HEMOG, LIPA4 #### [facility] [address] [place] [address] LipaseOrdered By: Evette mckeon on 11-25-2020 Interpretation and review of laboratory results Abnormal [facility] Work Phone: 1 Lipase [Catalytic activity/Vol] 5578 U/L High 23 - 300 U/L [facility] Work Phone: 1 Test Performed by [facility], [address] [place] [address] SLIGHT HEMOLYSIS [facility] Work Phone: 1 POCT GlucoseOrdered By: Ramez Lopez on 11-25-2020 Glucose [Mass/Vol] 124 mg/dL High 70 - 100 mg/dL [facility] Work Phone: 1 Comment on above: Test performed by gl ucose meter. Results may be 10%-15% lower than serum/plasma values. (CLIA ID [id number]) Interpretation and review of laboratory results Abnormal [facility] Work Phone: 1 Test Performed by [employer] [facility], [address] [place] [address] [facility] Work Phone: 1 Glucose [Mass/Vol] 145 mg/dL High 70 - 100 mg/dL [facility] Work Phone: 1 Comment on above: Test performed by gl ucose meter. Results may be 10%-15% lower than serum/plasma values. (CLIA ID [id number]) Interpretation and review of laboratory results Abnormal [facility] Work Phone: 1 Test Performed by [employer] [facility], [address] [place] [address] [facility] Work Phone: 1 Glucose [Mass/Vol] 168 mg/dL High 70 - 100 mg/dL [facility] Work Phone: 1 Comment on above: Test performed by gl ucose meter. Results may be 10%-15% lower than serum/plasma values. (CLIA ID [id number]) Interpretation and review of laboratory results Abnormal [facility] Work Phone: 1 Test Performed by [employer] [facility], [address] [place] [address] [facility] Work Phone: POCT GlucoseOrdered By: Ramez Gonzales on 11-25-2020 Glucose [Mass/Vol] 135 mg/dL High 70 - 100 mg/dL [facility] Work Phone: Comment on above: Test performed by gl ucose meter. Results may be 10%-15% lower than serum/plasma values. (CLIA ID [id number]) Interpretation and review of laboratory results Abnormal [facility] Work Phone: Test Performed by [facility], [address] [facility] Work Phone: [phone] Triglycerideon 11-25-2020 Triglyceride [Mass/Vol] 935 mg/dL Abnormal <150 [facility] [employer] [facility] Comment on above: Performed By: #### T RIG3 #### [facility] [employer] [facility] [address] [place] [address] TriglycerideOrdered By: Ramez Lopez on 11-25-2020 Interpretation and review of laboratory results Abnormal [facility] Work Phone: Triglyceride [Mass/Vol] 935 mg/dL Abnormal <150 [facility] Work Phone: Test Performed by [facility], [address] Work Phone: US ABDOMEN LIMITEDOrdered By : Della Lopez on 11-25-2020 [id number] Ul[facility]ound ACCESSION EXAM DATE/TIME PROCEDURE ORDERING PROVIDER [id number] 11/25/2020 08:29 EDT US Abdomen Limited Bhupendra LOPEZ MICHAEL THOMAS CPT code 54423 Reason For Exam (US Abdomen Limited) gallstones pancreatitis Report Ultrasound right upper quadrant HISTORY: Pancreatitis COMPARISON: Ultrasound 04/25/2018, MRI 06/14/2019, CT 02/01/2019 Fatty infiltration of the liver. The liver is enlarged measuring 19 cm. The gallbladder has been removed. Common bile duct has a normal diameter 5 mm. The pancreatic duct is mildly dilated measuring 3 mm. The previously seen cystic lesion in the head of the pancreas is not well seen on this examination. The right kidney measures 12.0 x 5.4 x 4.8 cm. The right kidney is normal. IMPRESSION: Fatty infiltration of the liver. Hepatomegaly. The pancreatic duct is mildly dilated measuring 3 mm. The previously seen cystic lesion in the head of the pancreas is not well seen on this examination. Report Dictated on Workstation: [employer] --- Final --- Dictating Physician: MD PIPER MALAY Signed Date and Time: 11/25/2020 9:45 am Signed by: MD PIPER MALAY Transcribed Date and Time: 11/25/2020 9:46 [facility] Work Phone: [facility], [facility] Incoming Radiology Results From [facility] - 11/25/2020 9:46 AM EDT Patient Name: AGA ADAN Ultrasound ACCESSION EXAM DATE/TIME PROCEDURE ORDERING PROVIDER [id number] 11/25/2020 08:29 EDT US Abdomen Limited Bhupendra LOPEZ MICHAEL THOMAS CPT code 55818 Reason For Exam (US Abdomen Limited) gallstones pancreatitis Report Ultrasound right upper quadrant HISTORY: Pancreatitis COMPARISON: Ultrasound 04/25/2018, MRI 06/14/2019, CT 02/01/2019 Fatty infiltration of the liver. The liver is enlarged measuring 19 cm. The gallbladder has been removed. Common bile duct has a normal diameter 5 mm. The pancreatic duct is mildly dilated measuring 3 mm. The previously seen cystic lesion in the head of the pancreas is not well seen on this examination. The right kidney measures 12.0 x 5.4 x 4.8 cm. The right kidney is normal. IMPRESSION: Fatty infiltration of the liver. Hepatomegaly. The pancreatic duct is mildly dilated measuring 3 mm. The previously seen cystic lesion in the head of the pancreas is not well seen on this examination. Report Dictated on Workstation: [email or web address] --- Final --- Dictating Physician: MD PIPER MALAY Signed Date and Time: 11/25/2020 9:45 am Signed by: MD PIPER MALAY Transcribed Date and Time: 11/25/2020 9:46 [facility] Work Phone: US Abdomen Limitedon 021 US Abdomen Limited Patient Name: AGA SO Ultrasound ACCESSION EXAM DATE/TIME PROCEDURE ORDERING PROVIDER [id number] 11/25/2020 08:29 EDT US Abdomen Limited Bhupendra LOPEZ MICHAEL THOMAS CPT code 07181 Reason For Exam (US Abdomen Limited) gallstones pancreatitis Report Ultrasound right upper quadrant HISTORY: Pancreatitis COMPARISON: Ultrasound 04/25/2018, MRI 06/14/2019, CT 02/01/2019 Fatty infiltration of the liver. The liver is enlarged measuring 19 cm. The gallbladder has been removed. Common bile duct has a normal diameter 5 mm. The pancreatic duct is mildly dilated measuring 3 mm. The previously seen cystic lesion in the head of the pancreas is not well seen on this examination. The right kidney measures 12.0 x 5.4 x 4.8 cm. The right kidney is normal. IMPRESSION: Fatty infiltration of the liver. Hepatomegaly. The pancreatic duct is mildly dilated measuring 3 mm. The previously seen cystic lesion in the head of the pancreas is not well seen on this examination. Report Dictated on Workstation: [id number] Final Dictating Physician: MD PIPER MALAY Signed Date and Time: 11/25/2020 9:45 am Signed by: MD PIPER MALAY Transcribed Date and Time: 11/25/2020 9:46 Normal [facility] XR ANKLE RIGHT (2 VIEWS)Orde red By: Evette Perry on 11-25-2020 Patient Name: AGA SO Diagnostic Radiology ACCESSION EXAM DATE/TIME PROCEDURE ORDERING PROVIDER [id number] 11/25/2020 20:56 EDT CR Ankle 2 Views Right EVETTE PERRY CPT code 12415 Reason For Exam (CR Ankle 2 Views Right) Fall with ankle pain , right please include the foot Report RIGHT FOOT AND ANKLE: CLINICAL INDICATION: Pain. TECHNIQUE: AP and lateral foot AP lateral ankle COMPARISON: 07/20/2017 FINDINGS: There is surgical fusion of the ankle and hindfoot with a plate extending from the tibia to the talus and screws extending from the talus to the calcaneus. Cortical irregularity is noted about the medial aspect of the distal tibia. There is generalized soft tissue swelling. Osteopenia is noted. IMPRESSION: Fusion of the ankle and hindfoot. No acute fracture or dislocation. Cortical regularity about the medial aspect of the distal tibia may be related to prior injury. Infection would be considered less likely. Report Dictated on Workstation: [facility] --- Final --- Dictating Physician: MD PA JEFFREY Signed Date and Time: 11/25/2020 9:16 pm Signed by: MD PA JEFFREY Transcribed Date and Time: 11/25/2020 9:17 [facility] Work Phone: [facility], [facility] Incoming Radiology Results From [facility] - 11/25/2020 9:17 PM EDT Patient Name: AGA ADAN Diagnostic Radiology ACCESSION EXAM DATE/TIME PROCEDURE ORDERING PROVIDER [id number] 11/25/2020 20:56 EDT CR Ankle 2 Views Right EVETTE PERRY CPT code 56344 Reason For Exam (CR Ankle 2 Views Right) Fall with ankle pain , right please include the foot Report RIGHT FOOT AND ANKLE: CLINICAL INDICATION: Pain. TECHNIQUE: AP and lateral foot AP lateral ankle COMPARISON: 07/20/2017 FINDINGS: There is surgical fusion of the ankle and hindfoot with a plate extending from the tibia to the talus and screws extending from the talus to the calcaneus. Cortical irregularity is noted about the medial aspect of the distal tibia. There is generalized soft tissue swelling. Osteopenia is noted. IMPRESSION: Fusion of the ankle and hindfoot. No acute fracture or dislocation. Cortical regularity about the medial aspect of the distal tibia may be related to prior injury. Infection would be considered less likely. Report Dictated on Workstation: [facility] --- Final --- Dictating Physician: MD PA JEFFREY Signed Date and Time: 11/25/2020 9:16 pm Signed by: MD PA JEFFREY Transcribed Date and Time: 11/25/2020 9:17 [facility] Work Phone: XR FOOT RIGHT (2 VIEWS)Order ed By: Evette Perry on 11-25-2020 Patient Name: AGA SO Diagnostic Radiology ACCESSION EXAM DATE/TIME PROCEDURE ORDERING PROVIDER [id number] 11/25/2020 20:56 EDT CR Foot 2 Views Right EVETTE PERRY CPT code 43314 Reason For Exam (CR Foot 2 Views Right) fall with ankle pain Report RIGHT FOOT AND ANKLE: CLINICAL INDICATION: Pain. TECHNIQUE: AP and lateral foot AP lateral ankle COMPARISON: 07/20/2017 FINDINGS: There is surgical fusion of the ankle and hindfoot with a plate extending from the tibia to the talus and screws extending from the talus to the calcaneus. Cortical irregularity is noted about the medial aspect of the distal tibia. There is generalized soft tissue swelling. Osteopenia is noted. IMPRESSION: Fusion of the ankle and hindfoot. No acute fracture or dislocation. Cortical regularity about the medial aspect of the distal tibia may be related to prior injury. Infection would be considered less likely. Report Dictated on Workstation: [facility] --- Final --- Dictating Physician: MD PA JEFFREY Signed Date and Time: 11/25/2020 9:16 pm Signed by: MD PA JEFFREY Transcribed Date and Time: 11/25/2020 9:17 [facility] Work Phone: [facility] From [facility] - 11/25/2020 9:17 PM EDT Patient Name: AGA ADAN Diagnostic Radiology ACCESSION EXAM DATE/TIME PROCEDURE ORDERING PROVIDER [id number] 11/25/2020 20:56 EDT CR Foot 2 Views Right EVETTE PERRY CPT code 71152 Reason For Exam (CR Foot 2 Views Right) fall with ankle pain Report RIGHT FOOT AND ANKLE: CLINICAL INDICATION: Pain. TECHNIQUE: AP and lateral foot AP lateral ankle COMPARISON: 07/20/2017 FINDINGS: There is surgical fusion of the ankle and hindfoot with a plate extending from the tibia to the talus and screws extending from the talus to the calcaneus. Cortical irregularity is noted about the medial aspect of the distal tibia. There is generalized soft tissue swelling. Osteopenia is noted. IMPRESSION: Fusion of the ankle and hindfoot. No acute fracture or dislocation. Cortical regularity about the medial aspect of the distal tibia may be related to prior injury. Infection would be considered less likely. Report Dictated on Workstation: [facility] --- Final --- Dictating Physician: MD PA JEFFREY Signed Date and Time: 11/25/2020 9:16 pm Signed by: MD PA JEFFREY Transcribed Date and Time: 11/25/2020 9:17 [facility] Work Phone: CR Chest Portableon 11-25-19 21 CR Chest Portable Patient Name: AGA SO Diagnostic Radiology ACCESSION EXAM DATE/TIME PROCEDURE ORDERING PROVIDER [id number] 11/24/2020 04:05 EDT CR Chest Portable [id number] BERUMEN CPT code 17078 Reason For Exam (CR Chest Portable) abd pain Report CHEST - PORTABLE: CLINICAL INDICATION: Abdominal pain TECHNIQUE: Portable AP COMPARISON: 02/01/2019 FINDINGS/IMPRESSION: Lines, tubes, and devices: None Cardiomediastinal silhouette: Heart size is within normal limits. Lungs/Pleura: There may be some mild bibasilar atelectasis. No pleural effusions or pneumothorax Osseous structures/soft tissues: Chronic right greater than left rib fracture deformities as before. No soft tissue abnormality is detected. Report Dictated on Final Dictating Physician: MD MONAE VLADIMIR Signed Date and Time: 11/24/2020 5:33 am Signed by: MD MONAE VLADIMIR Transcribed Date and Time: 11/24/2020 5:34 Normal [facility] [employer] [facility] Comp Metabolic Panelon 11-24 ALT [Catalytic activity/Vol] 40 U/L Normal 0-49 [facility] Comment on above: Result Comment: The ALT test is performed by an updated assay method. Please note that the reference intervals have been changed and are now sex specific. Performed By: #### M G3, HEMDF, LIPA4, CMP3 #### [facility] [address] [place] [address] Calcium [Mass/Vol] 10.0 mg/dL Normal 8.4-10.4 [facility] Comment on above: Performed By: #### M G3, HEMDF, LIPA4, CMP3 #### [facility] [address] [place] [address] Glucose [Mass/Vol] 146 mg/dL High 70-100 [facility] Comment on above: Performed By: #### M G3, HEMDF, LIPA4, CMP3 #### [facility] [address] [place] [address] ALP [Catalytic activity/Vol] 93 U/L Normal 38-126 [facility] Comment on above: Performed By: #### M G3, HEMDF, LIPA4, CMP3 #### [facility] [address] [place] [address] Anion gap [Moles/Vol] 8 mmol/L Normal 3-13 [facility] Comment on above: Performed By: #### M G3, HEMDF, LIPA4, CMP3 #### [facility] [address] [place] [address] AST [Catalytic activity/Vol] 45 U/L Normal 15-46 [facility] Comment on above: Performed By: #### M G3, HEMDF, LIPA4, CMP3 #### [facility] [address] [place] [address] Bilirubin [Mass/Vol] 1.0 mg/dL Normal 0.2-1.3 [facility] Comment on above: Performed By: #### M G3, HEMDF, LIPA4, CMP3 #### [facility] [address] [place] [address] CO2 [Moles/Vol] 28 mmol/L Normal 22-30 [facility] Comment on above: Performed By: #### M G3, HEMDF, LIPA4, CMP3 #### [facility] [address] [place] [address] Creatinine [Mass/Vol] 0.68 mg/dL Normal 0.52-1.25 [facility] Comment on above: Performed By: #### M G3, HEMDF, LIPA4, CMP3 #### [facility] [address] [place] [address] eGFR OTHER > 90.0 Normal >60 [facility] Comment on above: Result Comment: KDIG O guidelines provide the following GFR categories: Stage GFR(ml/min/1.73 m2) Terms G1 >=90 Normal or high G2 60-89 Mildly decreased* G3a 45-59 Mildly to moderately decreased G3b 30-44 Moderately to severely decreased G4 15-29 Severely decreased G5 <15 Kidney failure *Relative to young adult level. In the absence of evidence of kidney damage, neither GFR category G1 nor G2 fulfill the criteria for CKD. The CKD-EPI equation is validated in individuals 18 years of age and older. Currently the best equation for estimating glomerular filtration rate (GFR) from serum creatinine in children is the Bedside Cuevas equation. It is less accurate in patients with extremes of muscle mass, restriction of dietary protein, ingestion of creatine, extra-renal metabolism of creatinine, or treatment with medications that affect renal tubular creatinine secretion. Performed By: #### M G3, HEMDF, LIPA4, CMP3 #### [facility] [address] [place] [address] GFR/1.73 sq M.predicted among blacks MDRD (S/P/Bld) [Vol rate/Area] mL/min/{1.73_m2} Normal >60 [facility] Comment on above: Performed By: #### M G3, HEMDF, LIPA4, CMP3 #### [facility] [address] [place] [address] Protein [Mass/Vol] 7.9 g/dL Normal 6.3-8.2 [facility] Comment on above: Performed By: #### M G3, HEMDF, LIPA4, CMP3 #### [facility] [address] [place] [address] Urea nitrogen [Mass/Vol] 11 mg/dL Normal 7-20 [facility] Comment on above: Performed By: #### M G3, HEMDF, LIPA4, CMP3 #### [facility] [address] [place] [address] Chloride [Moles/Vol] 97 mmol/L Low 98-107 [facility] Comment on above: Performed By: #### M G3, HEMDF, LIPA4, CMP3 #### [facility] [address] [place] [address] Potassium [Moles/Vol] 3.7 mmol/L Normal 3.5-5.1 [facility] Comment on above: Performed By: #### M G3, HEMDF, LIPA4, CMP3 #### [facility] [address] [place] [address] Sodium [Moles/Vol] 134 mmol/L Low 135-145 [facility] Comment on above: Performed By: #### M G3, HEMDF, LIPA4, CMP3 #### [facility] [address] [place] [address] Albumin [Mass/Vol] 4.6 g/dL Normal 3.5-5.0 [facility] Comment on above: Performed By: #### M G3, HEMDF, LIPA4, CMP3 #### [facility] [address] [place] [address] Comprehensive Metabolic Pane lOrdered By: Della Gonzales on 11-24-2020 Albumin [Mass/Vol] 4.6 g/dL 3.5 - 5.0 g/dL [facility] Work Phone: [phone] ALP (Bld) [Catalytic activity/Vol] 93 U/L 38 - 126 U/L [facility] Work Phone: [phone] ALT [Catalytic activity/Vol] 40 U/L 0 - 49 U/L [facility] Work Phone: [phone] Comment on above: The ALT test is perf ormed by an updated assay method. Please note that the reference intervals have been changed and are now sex specific. Anion gap [Moles/Vol] 8 mmol/L 3 - 13 mmol/L [facility] Work Phone: [phone] AST [Catalytic activity/Vol] 45 U/L 15 - 46 U/L [facility] Work Phone: [phone] Bilirubin [Mass/Vol] 1.0 mg/dL 0.2 - 1 .3 mg/dL [facility] Work Phone: [phone] Calcium [Mass/Vol] 10.0 mg/dL 8.4 - 10. 4 mg/dL [facility] Work Phone: Chloride [Moles/Vol] 97 mmol/L Low 98 - 10 7 mmol/L [facility] Work Phone: [phone] CO2 [Moles/Vol] 28 mmol/L 22 - 30 mmol/L [facility] Work Phone: [phone] Creatinine [Mass/Vol] 0.68 mg/dL 0.52 - 1.25 mg/dL [employer] Work Phone: [phone] EGFR IF NonAfrican Israeli >90.0 >60 mL/min [facility] Work Phone: [phone] Comment on above: KDIGO guidelines pro vide the following GFR categories: Stage GFR(ml/min/1.73 m2) Terms G1 >=90 Normal or high G2 60-89 Mildly decreased* G3a 45-59 Mildly to moderately decreased G3b 30-44 Moderately to severely decreased G4 15-29 Severely decreased G5 <15 Kidney failure *Relative to young adult level. In the absence of evidence of kidney damage, neither GFR category G1 nor G2 fulfill the criteria for CKD. The CKD-EPI equation is validated in individuals 18 years of age and older. Currently the best equation for estimating glomerular filtration rate (GFR) from serum creatinine in children is the Bedside Cuevas equation. It is less accurate in patients with extremes of muscle mass, restriction of dietary protein, ingestion of creatine, extra-renal metabolism of creatinine, or treatment with medications that affect renal tubular creatinine secretion. Free PSA/Total PSA [Mass fraction] 7.9 g/dL 6.3 - 8.2 g/dL [employer] Work Phone: [phone] GFR/1.73 sq M.predicted among blacks MDRD (S/P/Bld) [Vol rate/Area] mL/min/{1.73_m2} >60 mL/min [facility] Work Phone: [phone] Glucose [Mass/Vol] 146 mg/dL High 70 - 100 mg/dL [facility] Work Phone: [phone] Interpretation and review of laboratory results Abnormal [facility] Work Phone: [phone] Potassium [Moles/Vol] 3.7 mmol/L 3.5 - 5.1 mmol/L [employer] Work Phone: [phone] Sodium [Moles/Vol] 134 mmol/L Low 135 - 145 mmol/L [facility] Work Phone: Urea nitrogen (BldV) [Mass/Vol] 11 mg/dL 7 - 20 mg/dL [facility] Work Phone: ED Provider Noteon ED Provider Note [facility] EM[facility]GENCY DEPARTMENT ENCOUNTER Pt Name: Aga Adan Birthdate 1965 Date of evaluation: 11/24/2020 Provider: Della Gonzales, DO CHIEF COMPLAINT Chief Complaint Patient presents with ? Abdominal Pain HISTORY OF PRESENT ILLNESS (Location/Symptom, Timing/Onset, Context/Setting, Quality, Duration, Modifying Factors, Severity) Note limiting factors. I wore a KN95 mask and goggles for the entirety of this encounter. HPI Aga Adan is a 55 y.o. male who presents to the emergency department with about 48 hours of epigastric pain that replicates his prior bouts of pancreatitis. Says he usually drinks about a sixpack a week, but on night (it is currently Wednesday night/Wednesday morning), he drank a sixpack while watching the [employer] draft. Symptoms have been gradually worsening since then. Has had associated nausea and vomiting. Is able to keep some water down but not much else. No symptoms of GI bleeding, no hemoptysis or other abnormal bleeding. Says that when he had pancreatitis before he had to be transferred to the [facility] for a procedure to drain the cyst that was blocking his pancreatic duct. No fever, chest pain, shortness of breath or other complaints at this time. Nursing Notes were reviewed. REVIEW OF SYSTEMS (2+ for level 4; 10+ for level 5) All other systems reviewed and negative. PAST MEDICAL HISTORY Past Medical History: Diagnosis Date ? Abnormal nuclear stress test ? Acid reflux ? Anxiety ? CAD (coronary artery disease) medically treated ? Calculus of gallbladder with chronic cholecystitis without obstruction SCHEDULED FOR THE SURGERY TODAY ? Depression ? ETOH abuse ? Hyperlipidemia ? Hypertension ? Insomnia ? ME (myocardial infarction) (HCC) 2006 ? Opioid dependence (HCC) ? Pancreatitis ? Pancreatitis ? Sleep apnea SURGICAL HISTORY Past Surgical History: Procedure Laterality Date ? ANKLE SURGERY ? CHOLECYSTECTOMY ? JOINT REPLACEMENT Left hip ? KNEE SURGERY ? SHOULDER SURGERY r/l CURRENT MEDICATIONS Previous Medications ASPIRIN 81 MG CHEWABLE TABLET Take 1 tablet by mouth daily ATENOLOL (TENORMIN) 25 MG TABLET Take 50 mg by mouth daily BECLOMETHASONE (QVAR) 40 MCG/ACT INHALER Inhale 2 puffs into the lungs 2 times daily BUPROPION (WELLBUTRIN SR) 150 MG EXTENDED RELEASE TABLET Take 150 mg by mouth daily CALCIUM CARBONATE 600 MG TABS TABLET Take 1 tablet by mouth daily CARBOXYMETHYLCELLULOSE (ARTIFICIAL TEARS) 1 % OPHTHALMIC SOLUTION Place 1 drop into the left eye 3 times daily CHLORHEXIDINE (PERIDEX) 0.12 % SOLUTION Take 15 mLs by mouth 2 times daily CHOLECALCIFEROL (VITAMIN D3) 79461 UNITS CAPS Take 1 capsule by mouth once a week FERROUS SULFATE (IRON 325) 325 (65 FE) MG TABLET Take 1 tablet by mouth 2 times daily FLUTICASONE (FLONASE) 50 MCG/ACT NASAL SPRAY 1 spray by Each Nostril route daily FOLIC ACID (FOLVITE) 1 MG TABLET Take 1 tablet by mouth daily GEMFIBROZIL (LOPID) 600 MG TABLET Take 1 tablet by mouth 2 times daily (before meals) LORATADINE (CLARITIN) 10 MG TABLET Take 10 mg by mouth daily METFORMIN (GLUCOPHAGE) 500 MG TABLET Take 1 tablet by mouth 2 times daily (with meals) Once daily until 05/03/18 and then bid with food NITROGLYCERIN (NITROSTAT) 0.[address] 0.4 mg under the tongue every 5 minutes as needed for Chest pain up to max of 3 total doses. If no relief after 1 dose, call 911. OMEPRAZOLE (PRILOSEC) 20 MG DELAYED RELEASE CAPSULE Take 40 mg by mouth daily OXYCODONE-ACETAMINOPHEN (PERCOCET) 5-325 MG PER TABLET Take 1 tablet by mouth every 6 hours as needed for Pain. QUETIAPINE (SEROQUEL) 100 MG TABLET Take 100 mg by mouth nightly THIAMINE 100 MG TABLET Take 1 tablet by mouth daily VERAPAMIL (CALAN) 40 MG TABLET Take 40 mg by mouth 2 times daily VILAZODONE HCL (VILAZODONE HCL) 10 MG TABS Take 40 mg by mouth daily VITAMIN B-12 (CYANOCOBALAMIN) 1000 MCG TABLET Take 1,000 mcg by mouth daily ALLERGIES Seasonal FAMILY HISTORY Family History Problem Relation Age of Onset ? Heart Disease Father ME ? High Blood Pressure Father ? Heart Attack Father ? High Blood Pressure Mother ? High Cholesterol Mother ? Hypertension Brother ? High Cholesterol Brother ? High Blood Pressure Brother SOCIAL HISTORY Social History Socioeconomic History ? Marital status: Spouse name: None ? Number of children: None ? Years of education: None ? Highest education level: None Occupational History ? None Social Needs ? Financial resource strain: None ? Food insecurity Worry: None Inability: None ? Transportation needs Medical: None Non-medical: None Tobacco Use ? Smoking status: Light Tobacco Smoker Packs/day: 0.25 Years: 10.00 Pack years: 2.50 Types: Cigars ? Smokeless tobacco: Current User Types: Snuff ? Tobacco comment: 1 cigar/day Substance and Sexual Activity ? Alcohol us (more content not included)... Normal [facility] EKG 12 Lead - Chest PainOrde red By: Della Gonzales on 11-24-2020 [facility] Test Date: 2020-11-24 Pat Name: AGA ANTIONETTE Department: 1 Room: 154 Gender: M Wall Washer: MILAGROS : 1965 Requested By: DELLA GONZALES Order Number: [id number] Reading MD: Billie Noel Measurements Intervals [place] Rate: 63 P: 46 LA: 204 QRS: 32 QRSD: 106 T: -1 QT: 432 QTc: 443 Interpretive Statements SINUS RHYTHM BORDERLINE INTRAVENTRICULAR CONDUCTION DELAY Compared to ECG 02/01/2019 20:56:49 No significant changes Electronically Signed On 11-24-2020 20:32:33 EDT by Billie MENARD Work Phone: [facility], [facility] Incoming Cardiology Results From [facility] - 11/24/2020 8:33 PM EDT [facility] Test Date: 2020-11-24 Pat Name: AGA ANTIONETTE Department: 1 Room: 154 Gender: M Wall Washer: MILAGROS : 1965 Requested By: DELLA GONZALES Order Number: [id number] Reading : Billie Almeida Intervals [place] Rate: 63 P: 46 LA: 204 QRS: 32 QRSD: 106 T: -1 QT: 432 QTc: 443 Interpretive Statements SINUS RHYTHM BORDERLINE INTRAVENTRICULAR CONDUCTION DELAY Compared to ECG 02/01/2019 20:56:49 No significant changes Electronically Signed On 11-24-2020 20:32:33 EDT by Billie MENARD Work Phone: 1 22 Glucose,Bedsideon 11-24-2020 Glucose [Mass/Vol] 157 mg/dL High 70-100 [facility] Comment on above: Result Comment: Test performed by glucose meter. Results may be 10%-15% lower than serum/plasma values. (CLIA ID [id number]) Performed By: #### M G3, HEMDF, LIPA4, CMP3 #### [email or web address] [address] [place] [address] Glucose [Mass/Vol] 242 mg/dL High 70-100 [facility] Comment on above: Result Comment: Test performed by glucose meter. Results may be 10%-15% lower than serum/plasma values. (CLIA ID [id number]) Performed By: #### B GLU #### [employer] [address] [place] [address] Hemogram (CBC) w/Auto DiffOr dered By: Della Gonzales on 11-24-2020 Absolute Baso # 0.0 10*3/uL 0.0 - 0.2 10*3/uL [employer] Work Phone: 1 22 Absolute Neut # 4.3 10*3/uL 1.8 - 7.0 10*3/uL [employer] Work Phone: 1 22 Basophils/100 WBC (Bld) 0.5 % 0.0 - 2.0 % [employer] Work Phone: 1 22 Eosinophils (Bld) [#/Vol] 0.2 10*3/uL 0.0 - 0.5 10*3/uL [employer] Work Phone: 1 22 Eosinophils/100 WBC (Bld) 3.1 % 1.0 - 6.0 % [employer] Work Phone: 1 22 Granulocytes/100 WBC (Bld) 72.2 % 40.0 - 80.0 % [employer] Work Phone: 1 Hematocrit (Bld) [Volume fraction] 37.4 % Low 40.0 - 52.0 % [employer] Work Phone: 1 22 Hemoglobin.gastrointe stinal spec 1 Ql (Stl) 13.2 g/dL 13.0 - 18.0 g/dL [employer] Work Phone: 1 Interpretation and review of laboratory results Abnormal [employer] Work Phone: 1 Lymphocytes (Bld) [#/Vol] 0.9 10*3/uL Low 1.0 - 4.3 10*3/uL [facility] Work Phone: 1 Lymphocytes/100 WBC (Bld) 15.8 % Low 20.0 - 40.0 % [employer] Work Phone: 1 MCH (RBC) [Entitic mass] 32.9 pg 26.0 - 34.0 pg [employer] Work Phone: 1 MCHC (RBC) [Mass/Vol] 35.2 % 32.0 - 36.0 % [employer] Work Phone: MCV (RBC) [Entitic vol] 93.5 fL 80.0 - 98.0 fL [employer] Work Phone: Monocytes (Bld) [#/Vol] 0.5 10*3/uL 0.0 - 0.8 10*3/uL [employer] Work Phone: 1 Monocytes/100 WBC (Bld) 8.4 % 2.0 - 10.0 % [employer] Work Phone: Platelet distribution width (Bld) [Ratio] 12.7 % 11.5 - 14.5 % [employer] Work Phone: Platelet mean volume (Bld) [Entitic vol] 7.4 fL 7.4 - 10.4 fL [employer] Work Phone: Platelets (Bld) [#/Vol] 206 10*3/uL 140 - 440 10*3/uL [employer] Work Phone: RBC (Bld) [#/Vol] 4.00 10*6/uL Low 4.40 - 5.9 0 10*6/uL [employer] Work Phone: WBC (Bld) [#/Vol] 6.0 10*3/uL 3.6 - 10.7 10*3/uL [employer] Work Phone: Test Performed by [facility], [address] [place] [address] [facility] Work Phone: Hemogram w/ Autodiffon 11-24 Abs Baso Cnt 0.0 10*3/uL Normal 0.0-0.2 [facility] Comment on above: Performed By: #### M G3, HEMDF, LIPA4, CMP3 #### [facility] [address] [place] [address] Abs Neutrophile Cnt 4.3 10*3/uL Normal 1.8-7.0 [facility] Comment on above: Performed By: #### M G3, HEMDF, LIPA4, CMP3 #### [facility] [address] [place] [address] Basophils/100 WBC (Bld) 0.5 % Normal 0.0-2.0 [facility] Comment on above: Performed By: #### M G3, HEMDF, LIPA4, CMP3 #### [facility] [address] [place] [address] Eosinophils (Bld) [#/Vol] 0.2 10*3/uL Normal 0.0-0.5 [facility] Comment on above: Performed By: #### M G3, HEMDF, LIPA4, CMP3 #### [facility] [address] [place] [address] Eosinophils/100 WBC (Bld) 3.1 % Normal 1.0-6.0 [facility] Comment on above: Performed By: #### M G3, HEMDF, LIPA4, CMP3 #### [facility] [address] [place] [address] Erythrocyte distribution width (RBC) [Ratio] 12.7 % Normal 11.5-14.5 [facility] Comment on above: Performed By: #### M G3, HEMDF, LIPA4, CMP3 #### [facility] [address] [place] [address] Granulocytes/100 WBC (Bld) 72.2 % Normal 40.0-80.0 [facility] Comment on above: Performed By: #### M G3, HEMDF, LIPA4, CMP3 #### [facility] [address] [place] [address] Hematocrit (Bld) [Volume fraction] 37.4 % Low 40.0-52.0 [facility] Comment on above: Performed By: #### M G3, HEMDF, LIPA4, CMP3 #### [facility] [address] [place] [address] Hemoglobin (Bld) [Mass/Vol] 13.2 g/dL Normal 13.0-18.0 [facility] Comment on above: Performed By: #### M G3, HEMDF, LIPA4, CMP3 #### [facility] [address] [place] [address] Lymphocytes (Bld) [#/Vol] 0.9 10*3/uL Low 1.0-4.3 [facility] Comment on above: Performed By: #### Perez G3, HEMDF, LIPA4, CMP3 #### [facility] [address] [place] [address] Lymphocytes/100 WBC (Bld) 15.8 % Low 20.0-40.0 [facility] Comment on above: Performed By: #### Perez G3, HEMDF, LIPA4, CMP3 #### [facility] [address] [place] [address] MCH (RBC) [Entitic mass] 32.9 pg Normal 26.0-34.0 [facility] Comment on above: Performed By: #### M G3, HEMDF, LIPA4, CMP3 #### [facility] [address] [place] [address] MCHC 35.2 % Normal 32.0-36.0 [facility] Comment on above: Performed By: #### M G3, HEMDF, LIPA4, CMP3 #### [facility] [address] [place] [address] MCV (RBC) [Entitic vol] 93.5 fL Normal 80.0-98.0 [facility] Comment on above: Performed By: #### M G3, HEMDF, LIPA4, CMP3 #### [facility] [address] [place] [address] Monocytes (Bld) [#/Vol] 0.5 10*3/uL Normal 0.0-0.8 [facility] Comment on above: Performed By: #### M G3, HEMDF, LIPA4, CMP3 #### [facility] [address] [place] [address] Monocytes/100 WBC (Bld) 8.4 % Normal 2.0-10.0 [facility] Comment on above: Performed By: #### M G3, HEMDF, LIPA4, CMP3 #### [facility] [address] [place] [address] Platelet mean volume (Bld) [Entitic vol] 7.4 fL Normal 7.4-10.4 [facility] Comment on above: Performed By: #### M G3, HEMDF, LIPA4, CMP3 #### [facility] [address] [place] [address] Platelets (Bld) [#/Vol] 206 10*3/uL Normal 140-440 [facility] Comment on above: Performed By: #### Perez G3, HEMDF, LIPA4, CMP3 #### [facility] [address] [place] [address] RBC (Bld) [#/Vol] 4.00 10*6/uL Low 4.40-5.90 [facility] Comment on above: Performed By: #### M G3, HEMDF, LIPA4, CMP3 #### [facility] [address] [place] [address] WBC (Bld) [#/Vol] 6.0 10*3/uL Normal 3.6-10.7 [facility] Comment on above: Performed By: #### M G3, HEMDF, LIPA4, CMP3 #### [facility] [address] [place] [address] Lipaseon 11-24-2020 Lipase [Catalytic activity/Vol] 8336 U/L High 23-300 [facility] Comment on above: Performed By: #### M G3, HEMDF, LIPA4, CMP3 #### [facility] [address] [place] [address] LipaseOrdered By: Della ashraf on 11-24-2020 Interpretation and review of laboratory results Abnormal [facility] Work Phone: 1 Lipase [Catalytic activity/Vol] 8336 U/L High 23 - 300 U/L [facility] Work Phone: 1 Test Performed by [facility], [address] [place] [address] [facility] Work Phone: 1 Magnesiumon 11-24-2020 Magnesium [Mass/Vol] 1.9 mg/dL Normal 1.6-2.3 [facility] [employer] Comment on above: Performed By: #### M G3, HEMDF, LIPA4, CMP3 #### [facility] [address] [place] [address] MagnesiumOrdered By: Della Gonzales on 11-24-2020 Magnesium [Mass/Vol] 1.9 mg/dL 1.6 - 2 .3 mg/dL [facility] Work Phone: 1 No Panel InformationOrdered By: Della Gonzales on 11-24-2020 Test Performed by [facility], [address] [place] [address] [facility] Work Phone: 1 POCT GlucoseOrdered By: Ramez Lopez on 11-24-2020 Glucose [Mass/Vol] 157 mg/dL High 70 - 100 mg/dL [facility] Work Phone: 1 Comment on above: Test performed by gl ucose meter. Results may be 10%-15% lower than serum/plasma values. (CLIA ID [id number]) Interpretation and review of laboratory results Abnormal [facility] Work Phone: 1 Test Performed by [facility], [address] [place] [address] [facility] Work Phone: 1 POCT GlucoseOrdered By: Ramez Gonzales on 11-24-2020 Glucose [Mass/Vol] 242 mg/dL High 70 - 100 mg/dL [facility] Work Phone: 1 Comment on above: Test performed by gl ucose meter. Results may be 10%-15% lower than serum/plasma values. (CLIA ID [id number]) Interpretation and review of laboratory results Abnormal [facility] Work Phone: [phone] Test Performed by [facility], [address] [place], [place] [address] [facility] Work Phone: XR CHEST PORTABLEOrdered By: Della Gonzales on 11-24-2020 Patient Name: AGA SO Diagnostic Radiology ACCESSION EXAM DATE/TIME PROCEDURE ORDERING PROVIDER [id number] 11/24/2020 04:05 EDT CR Chest Portable [id number] BEASLEY DELLA CPT code 48230 Reason For Exam (CR Chest Portable) abd pain Report CHEST - PORTABLE: CLINICAL INDICATION: Abdominal pain TECHNIQUE: Portable AP COMPARISON: 02/01/2019 FINDINGS/IMPRESSION: Lines, tubes, and devices: None Cardiomediastinal silhouette: Heart size is within normal limits. Lungs/Pleura: There may be some mild bibasilar atelectasis. No pleural effusions or pneumothorax Osseous structures/soft tissues: Chronic right greater than left rib fracture deformities as before. No soft tissue abnormality is detected. Report Dictated on --- Final --- Dictating Physician: MD MONAE VLADIMIR Signed Date and Time: 11/24/2020 5:33 am Signed by: MD MONAE VLADIMIR Transcribed Date and Time: 11/24/2020 5:34 [facility] Work Phone: [place] Incoming Radiology Results From [facility] - 11/24/2020 5:34 AM EDT Patient Name: AGA ADAN Diagnostic Radiology ACCESSION EXAM DATE/TIME PROCEDURE ORDERING PROVIDER [id number] 11/24/2020 04:05 EDT CR Chest Portable [id number] CARRANZADELLA HANCOCK CPT code 51212 Reason For Exam (CR Chest Portable) abd pain Report CHEST - PORTABLE: CLINICAL INDICATION: Abdominal pain TECHNIQUE: Portable AP COMPARISON: 02/01/2019 FINDINGS/IMPRESSION: Lines, tubes, and devices: None Cardiomediastinal silhouette: Heart size is within normal limits. Lungs/Pleura: There may be some mild bibasilar atelectasis. No pleural effusions or pneumothorax Osseous structures/soft tissues: Chronic right greater than left rib fracture deformities as before. No soft tissue abnormality is detected. Report Dictated on --- Final --- Dictating Physician: MD MONAE VLADIMIR Signed Date and Time: 11/24/2020 5:33 am Signed by: MD MONAE VLADIMIR Transcribed Date and Time: 11/24/2020 5:34 [facility] Work Phone: [facility] 07-17-2020 CNOV Office Visit (AGHWW2 ) ----- AGA ADAN ([id number]) 1965 M Date Time Provider Department 07/17/20 9:45 AM KHLOE MULLINS) AGHWW2 During your visit today, we recorded the following information about you: Respiration Weight Height 18/minute 88.5 kg 1.702 m Manoj Stoddard 07/17/2020 12:59 PM Signed REVIEW OF SYSTEMS: GENERAL: Well developed, well nourished. No acute distress PAIN: Lumbar, B Shoulder, Jaw Pain CARDIOVASCULAR: ME at Age 41, HTN MSK: Negative for joint pain, swelling, back pain, muscle pain. SKIN: Negative for lesions, rash, itching, metal sensitivity NEURO: Negative for seizure, trauma, numbness/tingling of extremities, headache ENDOCRINE: DM II Does Not Monitor Blood Sugars HEMATOLOGY: Negative for excessive bleeding, clots, bleeding disorders. HENT: Negative for jaw pain, difficulty swallowing, vision changes, gum disease, tooth decay GI: Frequent Upset Stomach after Eating Khloe Mullins PA-C 07/17/2020 12:59 PM Signed [facility] Program Subjective: Aga Adan is a 55 year old White male who presents today for a follow up on Prolia. Today will be his 2nd injection. Patient admits to taking Vitamin D and Calcium combination pill twice daily and a separate Vitamin D tablet, but he is unsure of dose of this supplementation. Admits to tolerating Prolia well. Admits to having some jaw pain, but is unsure if this is related to Prolia. Admits to clenching his teeth a lot. 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 Patient denies any recent injury, falls, fractures, or hospitalizations. PMHx includes: History of multiple fractures, history of type 2 diabetes, tobacco abuse, daily alcohol use, GERD and is on a daily PPI Are you compliant with taking your medication/injections: Yes Is there any irritation to injection site: No 1st Prolia: 01/17/20 Review of Systems: Reviewed ADINCON's note of ROS with the patient and agree with results. Objective: CONSTITUTIONAL: Patient is pleasant, cooperative, well developed, and well nourished in NAD. NEURO: Patient is alert and oriented x3. Speech is clear and coherent. Sensation intact to light touch. HENT: - Head: Normocephalic. Atraumatic. - Eyes: EOMI. Sclera white, conjuctiva pink. No erythema. - Nose: septum midline. No drainage noted. Nares patent bilaterally. - Throat: Mouth is clear. Oral mucosa pink. Dentition is intact. No evidence of tooth decay/broken teeth. Pharynx without edema, erythema, or exudate. - Neck: Trachea is midline. Full AROM. RESPIRATORY: Breathing is non-labored. SKIN: Warm and smooth to touch. No lacerations, open sores, rashes, or lesions noted on exposed skin. No skin depigmentation, dryness, erythema, or edema. Appropriate hair growth. MUSCULOSKELETAL: Wearing tall walker boot on right foot. Radiology: DATE OF EXAM: Sep ?2019 10:10AM ? AWX ? 0804 ?- ?BD DXA - AXIAL SKELETON ?/ PROCEDURE REASON: Special screening for osteoporosis ?? ? * * * * Physician Interpretation * * * * ?EXAM TITLE: BONE MINERAL DENSITOMETRY COMPARISON:None CLINICAL INDICATION/HISTORY: Adult fracture TECHNIQUE: ?DXA BitWaveW-Watchsend v.13.4 examination was performed on the lumbar spine and hip. FINDINGS: 1. L1-L4 BMD is 0.8 g/cm2 which is 65% of peak bone mass compared to young normals which is -3.5 standard deviations relative to the mean of young normals (T-score). ?According to the World Health Organization criteria, this would be classified as osteoporosis. 2. Right hip BMD is 1 g/cm2 which is 91% of peak bone mass compared to young normals which is -0.7 standard deviations relative to the mean of young normals (T-score). ?According to the World Health Organization criteria, this would be classified as normal . 3. Right femoral neck BMD is 1 g/cm2 which is 93% of peak bone mass compared to young normals which is -0.6 standard deviations relative to the mean of young normals (T-score). ?According to the World Health Organization criteria, this would be classified as normal . ? IMPRESSION: ?There is osteoporosis within the assessed regions. RELATIVE FRACTURE RISK TABLE NOTE: ?This table applies to post-menopausal females. T-score ? Fracture risk ?? 0 ?average risk for normal 40 year old ??-1 ?2 times the normal ??-2 ?4 times the normal ??-3 ?8 times the normal etc. ? Labs: Component Latest Ref Rng AND Units 07/10/2020 Albumin 3.9 - 4.9 g/dL 4.4 Calcium 8.5 - 10.2 mg/dL 9.8 Phosphorus 2.7 - 4.8 mg/dL 2.6 (L) Glucose 74 - 99 mg/dL 123 (H) BUN 9 - 24 mg/dL 7 (L) Creatinine 0.73 - 1.22 mg/dL 0.64 (L) Sodium 136 - 144 mmol/L 134 (L) Potassium 3.7 - 5.1 mmol/L 3.9 Chloride 97 - 105 mmol/L 95 (L) CO2 2 (more content not included)... Normal [facility] Renal function 2000 panelon 07-10-2020 Albumin [Mass/Vol] 4.4 g/dL Normal 3.9-4.9 [facility] Comment on above: Order Comment: Speci men Type: BLOOD SPECIMEN Performed By: #### 2 4362-6 ####[facility]ATORY[facility]IA [id number] [place] [address] Anion gap [Moles/Vol] 13 mmol/L Normal 9-18 [facility] Comment on above: Order Comment: Speci men Type: BLOOD SPECIMEN Performed By: #### 2 4362-6 ####[facility]ATORYCLIA [id number] [place] [address] Calcium [Mass/Vol] 9.8 mg/dL Normal 8.5-10.2 [facility] Comment on above: Order Comment: Speci men Type: BLOOD SPECIMEN Performed By: #### 2 4362-6 ####[facility]ATORYCLIA [id number] [place] [address] Chloride [Moles/Vol] 95 mmol/L Low 97-105 [facility] Comment on above: Order Comment: Speci men Type: BLOOD SPECIMEN Performed By: #### 2 4362-6 ####[facility]ATORYCLIA [id number] [place] [address] CO2 [Moles/Vol] 26 mmol/L Normal 22-30 [facility] Comment on above: Order Comment: Speci men Type: BLOOD SPECIMEN Performed By: #### 2 4362-6 ####[facility]ORATORYCLIA [id number] [place] [address] Creatinine [Mass/Vol] 0.64 mg/dL Low 0.73-1.22 [facility] Comment on above: Order Comment: Speci men Type: BLOOD SPECIMEN Performed By: #### 2 4362-6 ####[facility]ATORYCLIA [id number] [place] [address] GFR/1.73 sq M.predicted MDRD (S/P/Bld) [Vol rate/Area] mL/min/{1.73_m2} Normal [facility] Comment on above: Order Comment: Speci men Type: BLOOD SPECIMEN Result Comment: >60 eGFR (Estimated GFR) Units of measure: mL/min/1.73 meters squared eGFR is derived from the reexpressed MDRD Study equation using the following parameters: serum creatinine, age, gender and race. The creatinine assay has been calibrated to be traceable to IDMS. An eGFR <60 mL/min/1.73m2 for >3 months is consistent with chronic kidney disease. Refer to KDOQI guidelines for clinical interpretation. In patients with unstable renal function, e.g. those with acute kidney injury, the eGFR may not accurately reflect actual GFR. Performed By: #### 2 4362-6 ####[facility]ATORYCLIA [id number] [place] [address] Glucose [Mass/Vol] 123 mg/dL High 74-99 [facility] Comment on above: Order Comment: Speci men Type: BLOOD SPECIMEN Result Comment: The [place] Diabetes Association (ADA) provides guidance for cutoff values for fasting glucose and random glucose. The ADA defines fasting as no caloric intake for at least 8 hours. Fasting plasma glucose results between 100 to 125 mg/dL indicate increased risk for diabetes (prediabetes). Fasting plasma glucose results greater than or equal to 126 mg/dL meet the criteria for diagnosis of diabetes. In the absence of unequivocal hyperglycemia, results should be confirmed by repeat testing. In a patient with classic symptoms of hyperglycemia or hyperglycemic crisis, random plasma glucose results greater than or equal to 200 mg/dL meet the criteria for diagnosis of diabetes. Reference: Standards of Medical Care in Diabetes 2016, [place] Diabetes Association. Diabetes Care. 2016.39(Suppl 1). Performed By: #### 2 4362-6 ####[facility]ATORYCLIA [id number] [place] [address] Phosphate [Mass/Vol] 2.6 mg/dL Low 2.7-4.8 [facility] Comment on above: Order Comment: Speci men Type: BLOOD SPECIMEN Performed By: #### 2 4362-6 ####[facility]ATORYCLIA [id number] [place] [address] Potassium [Moles/Vol] 3.9 mmol/L Normal 3.7-5.1 [facility] Comment on above: Order Comment: Speci men Type: BLOOD SPECIMEN Performed By: #### 2 4362-6 ####[facility]ATORYCLIA [id number] [place] [address] Sodium [Moles/Vol] 134 mmol/L Low 136-144 [facility] Comment on above: Order Comment: Speci men Type: BLOOD SPECIMEN Performed By: #### 2 4362-6 ####[facility]ATORYCLIA [id number] [place] [address] Urea nitrogen [Mass/Vol] 7 mg/dL Low 9-24 [facility] Comment on above: Order Comment: Speci men Type: BLOOD SPECIMEN Performed By: #### 2 4362-6 ####[facility]ATORYCLIA [id number] [place] [address] VITAMIN D 25 HYDROXYon 07-10 25-hydroxyvitamin D3 [Mass/Vol] 20.8 ng/mL Low 30.0-100.0 [facility] Comment on above: Order Comment: Speci men Type: BLOOD SPECIMEN Result Comment: Clas sification of 25 [place] Vitamin D status: Insufficiency/Moderate Deficiency: < or = 30 ng/ml. Sufficiency/Optimal Levels: 31-80 ng/mL Toxicity: > 100 ng/mL. Test performed by chemiluminescent immunoassay. Performed By: #### V ITD ####[facility]ATORYCLIA [id number] [place] [address] CNPNon 07-05-2020 CNPN Telephone (AGPOB2) ----- AGA ADAN ([id number]) 1965 M Date Time Provider Department 07/05/20 KHLOE MULLINS) AGPOB2 During your visit today, we recorded the following information about you: J Carlos Quan 07/05/2020 8:25 AM Signed Prolia Approval Date: 11/28/19-11/27/20 EARL #[id number] [facility] # [facility] ID#[id number] Allergies As of Date: 07/05/2020 (No Known Allergies) Date Reviewed: 04/29/2020 Reviewed by: Joseph Mooney - Fully Assessed Reason for Visit: Medication Follow-up [270] Cmt: Pt clld office LM message stating we needed PA for Prolia for [facility] to fill - gave pt info PA on file until 11/27/20 Medication Follow-up [270] Cmt: Rcvd update from [facility] that prolia will be delivered 07/11 Reason For Visit History Recorded Prescriptions as of 07/05/2020 Sig: GABAPENTIN 300 MG CAPSULE TAKE 1 CAPSULE BY MOUTH AT 3P* COLACE ORAL Take by mouth. PREDNISONE 10 MG TABLET Take 10 mg by mouth once willi* VALTREX ORAL Take by mouth. PROLIA 60 MG/ML SUBCUTANEOUS * Inject 1 mL subcutaneously on* ZOLEDRONIC ACID 5 MG/100 ML I* Inject 100 mL intravenously o* METFORMIN ORAL Take 1,000 mg by mouth twice * ASPIRIN 81 MG TABLET,DELAYED * Take 1 tablet by mouth twice * GABAPENTIN 300 MG CAPSULE Take 1 capsule by mouth daily* VERAPAMIL 40 MG TABLET Take 40 mg by mouth three abigail* METHYLPREDNISOLONE 4 MG TABLE* Take 1 tablet by mouth as dir* Patient not taking: Reported on 03/08/2020 VITAMIN B COMPLEX CAPSULE Take 1 capsule by mouth once * MULTIVITAMIN CAPSULE Take 1 capsule by mouth once * ASCORBIC ACID (VITAMIN C) 1,0* Take 1,000 mg by mouth once d* JOAN (ZINGIBER OFFICINALIS)* Take by mouth. 2 pills daily BUPROPION XL 150 MG TAB once daily. FLUTICASONE PROPIONATE 50 MCG* 2 Sprays once daily. VIIBRYD 10 MG TABLET daily with breakfast. HYDROCORTISONE 2.5 % TOPICAL * 1 Applicator by RECTAL route * Patient taking differently: 1 Applicator by RECTAL route * QUETIAPINE 50 MG TABLET daily at bedtime. 2 pills at * ONDANSETRON HCL 4 MG TABLET every 8 hours as needed. ATENOLOL 50 MG TABLET once daily. QVAR 40 MCG/ACTUATION METERED* 2 Puffs as needed. GEMFIBROZIL 600 MG TABLET twice daily. OMEPRAZOLE 40 MG CAPSULE,EBONIE* Take 40 mg by mouth once willi* Problem List As Of Date 07/05/2020 Noted Resolved Iron deficiency anemia due to chronic blood los*06/21/2017 Gastroesophageal reflux disease without esophag*06/21/2017 Constipation [K59.00] 06/21/2017 Rectal bleeding [K62.5] 06/21/2017 Abnormal nuclear stress test [R94.39] 10/06/2017 Acute pancreatitis [K85.90] 10/06/2017 Calculus of gallbladder with chronic cholecysti*11/17/2016 Elevated liver function tests [R79.89] 10/06/2017 Hyperlipidemia [E78.5] 10/06/2017 Hypertension [I10] 10/06/2017 ME (myocardial infarction) (HCC) [I21.9] 07/26/2006 Acquired valgus deformity of right ankle [M21.0*08/16/2018 12/07/2018 Ankle arthritis [M19.079] 08/16/2018 12/07/2018 Closed pelvic fracture (HCC) [S32.9XXA] 05/19/2019 Moderate episode of recurrent major depressive *01/23/2020 Generalized anxiety disorder [F41.1] 01/23/2020 Chronic bilateral low back pain with bilateral *02/26/2020 Encounter Status:Closed by J CARLOS QUAN on 07/05/20 [facility] CNPNon 06-27-2020 CNPN Telephone (AGPOB2) ----- AGA ADAN ([id number]) 1965 M Date Time Provider Department 06/27/20 KHLOE MULLINS) AGPOB2 During your visit today, we recorded the following information about you: Allergies As of Date: 06/27/2020 (No Known Allergies) Date Reviewed: 04/29/2020 Reviewed by: Joseph Mooney - Fully Assessed Reason for Visit: Appointment Confirmation [[id number]] Cmt: Clld pt LM w/apt confirmation for 07/17 also reminded him to contact pharmacy and complete lab work prior to injection date Prescriptions as of 06/27/2020 Sig: GABAPENTIN 300 MG CAPSULE TAKE 1 CAPSULE BY MOUTH AT 3P* COLACE ORAL Take by mouth. PREDNISONE 10 MG TABLET Take 10 mg by mouth once willi* VALTREX ORAL Take by mouth. PROLIA 60 MG/ML SUBCUTANEOUS * Inject 1 mL subcutaneously on* ZOLEDRONIC ACID 5 MG/100 ML I* Inject 100 mL intravenously o* METFORMIN ORAL Take 1,000 mg by mouth twice * ASPIRIN 81 MG TABLET,DELAYED * Take 1 tablet by mouth twice * GABAPENTIN 300 MG CAPSULE Take 1 capsule by mouth daily* VERAPAMIL 40 MG TABLET Take 40 mg by mouth three abigail* METHYLPREDNISOLONE 4 MG TABLE* Take 1 tablet by mouth as dir* Patient not taking: Reported on 03/08/2020 VITAMIN B COMPLEX CAPSULE Take 1 capsule by mouth once * MULTIVITAMIN CAPSULE Take 1 capsule by mouth once * ASCORBIC ACID (VITAMIN C) 1,0* Take 1,000 mg by mouth once d* JOAN (ZINGIBER OFFICINALIS)* Take by mouth. 2 pills daily BUPROPION XL 150 MG TAB once daily. FLUTICASONE PROPIONATE 50 MCG* 2 Sprays once daily. VIIBRYD 10 MG TABLET daily with breakfast. HYDROCORTISONE 2.5 % TOPICAL * 1 Applicator by RECTAL route * Patient taking differently: 1 Applicator by RECTAL route * QUETIAPINE 50 MG TABLET daily at bedtime. 2 pills at * ONDANSETRON HCL 4 MG TABLET every 8 hours as needed. ATENOLOL 50 MG TABLET once daily. QVAR 40 MCG/ACTUATION METERED* 2 Puffs as needed. GEMFIBROZIL 600 MG TABLET twice daily. OMEPRAZOLE 40 MG CAPSULE,EBONIE* Take 40 mg by mouth once willi* Problem List As Of Date 06/27/2020 Noted Resolved Iron deficiency anemia due to chronic blood los*06/21/2017 Gastroesophageal reflux disease without esophag*06/21/2017 Constipation [K59.00] 06/21/2017 Rectal bleeding [K62.5] 06/21/2017 Abnormal nuclear stress test [R94.39] 10/06/2017 Acute pancreatitis [K85.90] 10/06/2017 Calculus of gallbladder with chronic cholecysti*11/17/2016 Elevated liver function tests [R79.89] 10/06/2017 Hyperlipidemia [E78.5] 10/06/2017 Hypertension [I10] 10/06/2017 ME (myocardial infarction) (HCC) [I21.9] 07/26/2006 Acquired valgus deformity of right ankle [M21.0*08/16/2018 12/07/2018 Ankle arthritis [M19.079] 08/16/2018 12/07/2018 Closed pelvic fracture (HCC) [S32.9XXA] 05/19/2019 Moderate episode of recurrent major depressive *01/23/2020 Generalized anxiety disorder [F41.1] 01/23/2020 Chronic bilateral low back pain with bilateral *02/26/2020 Encounter Status:Closed by J CARLOS QUAN on 06/27/20 [facility] CNOVon 04-29-2020 CNOV Office Visit (AGHWW1 ) ----- ANTIONETTEAGA Suarez ([id number]) 1965 M Date Time Provider Department 04/29/20 9:45 AM JOSEPH MOONEY AGHWW1 During your visit today, we recorded the following information about you: Respiration Weight Height 18/minute 88.5 kg 1.702 m Joseph Mooney DO 04/29/2020 10:50 AM Signed HPI: Aga Adan is a 55 year old male who presents today for follow-up of low back pain. Last saw him over a month ago and recommended he continue with physical therapy to see if this will improve his pain and function. He continues to have foot issues and and a walker boot until he can get surgery to fix. He has had 9 visits of physical therapy thus far. Still has hand pain. We had EMG testing done which showed carpal tunnel issues but no cubital tunnel issues which was our greatest concern. PAST MEDICAL HISTORY Diagnosis Date - Acquired valgus deformity of foot, right - Anemia - Diabetes (HCC) - GERD (gastroesophageal reflux disease) - HTN (hypertension) - Hyperlipidemia - Myocardial infarct (HCC) 2006 - Pancreatic cyst 06/08/2019 - Pancreatitis - Post-traumatic arthritis of ankle, right - Shingles 10/28/2018 PAST SURGICAL HISTORY Procedure Laterality Date - CHOLECYSTECTOMY 2017 - COLONOSCOPY 07/15/2017 external grade 1 hemmorhoids - EGD 08/03/2017 bile gastric fluid, neg H pylori - HEART CATHETERIZATION 2017 - HIP SURGERY HX Left 05/2016 GIANNA - KNEE SURGERY HX Right 1983 - PANCREAS 06/08/2019 - PAST SURGICAL HISTORY OF 06/2018 BACK - PAST SURGICAL HISTORY OF Right 12/07/2018 R Ankle - SHOULDER SURGERY HX Bilateral 2008 RCR Social History Tobacco Use - Smoking status: Former Smoker Types: Cigars - Smokeless tobacco: Current User Types: Chew - Tobacco comment: 3 cigars/week Substance Use Topics - Alcohol use: Yes Comment: daily 3 beers - Drug use: No Current Outpatient Medications Medication Sig - docusate sodium (COLACE ORAL) Take by mouth. - predniSONE (DELTASONE) 10 mg tablet Take 10 mg by mouth once daily. 11 days - valacyclovir HCl (VALTREX ORAL) Take by mouth. - denosumab (PROLIA) 60 mg/mL Inject 1 mL subcutaneously once every 6 months. - metformin HCl (METFORMIN ORAL) Take 1,000 mg by mouth twice daily. - B Complex Vitamins capsule Take 1 capsule by mouth once daily. - Multivitamin capsule Take 1 capsule by mouth once daily. - Ascorbic Acid (VITAMIN C) 1,000 mg tablet Take 1,000 mg by mouth once daily. Takes 2 tablets daily - Joan, Zingiber officinalis, (JOAN EXTRACT) 250 mg cap Take by mouth. 2 pills daily - buPROPion XL (WELLBUTRIN XL) 150 mg 24 hr tablet once daily. - fluticasone (FLONASE) 50 mcg/actuation nasal spray 2 Sprays once daily. - QUEtiapine (SEROQUEL) 50 mg tablet daily at bedtime. 2 pills at bedtime - atenolol (TENORMIN) 50 mg tablet once daily. - QVAR 40 mcg/actuation inhaler 2 Puffs as needed. - Omeprazole 40 mg capsule Take 40 mg by mouth once daily. - gabapentin (NEURONTIN) 300 mg capsule TAKE 1 CAPSULE BY MOUTH AT 3PM AND 1 CAPSULE BY MOUTH AT BEDTIME - zoledronic acid (RECLAST) 5 mg/100 mL pgbk PREMIX piggyback Inject 100 mL intravenously one time only for 1 dose. Once only for 1 time - aspirin, enteric coated (ASPIRIN, ENTERIC COATED) 81 mg EC tablet Take 1 tablet by mouth twice daily for 14 days. - gabapentin (NEURONTIN) 300 mg capsule Take 1 capsule by mouth daily at bedtime for 30 days. - verapamil (CALAN, ISOPTIN) 40 mg tablet Take 40 mg by mouth three times daily. - methylPREDNISolone (MEDROL, TOYA,) 4 mg Dose-Pack Take 1 tablet by mouth as directed. As directed on package (Patient not taking: Reported on 03/08/2020 ) - VIIBRYD 10 mg daily with breakfast. - hydrocortisone (ANUSOL-HC) 2.5 % rectal cream 1 Applicator by RECTAL route twice daily. (Patient taking differently: 1 Applicator by RECTAL route as needed. ) - ondansetron (ZOFRAN) 4 mg tablet every 8 hours as needed. - gemfibrozil (LOPID) 600 mg tablet twice daily. No current facility-administered medications for this visit. ALLERGIES No Known Allergies REVIEW OF SYSTEMS: GENERAL: Well developed, well nourished. No acute distress PAIN: Pain lower back, peter hands CARDIOVASCULAR: hypertension MSK: joint pain lower back, peter hands SKIN: Negative for lesions, rash, itching, metal sensitivity NEURO: Negative for seizure, trauma, numbness/tingling of extremities. ENDOCRINE: Diabetes Type 2 On medication HEMATOLOGY: Negative for excessive bleeding, clots, bleeding disorders. Resp 18 Ht 5' 7" (1.70m) Wt 195 lb (88.5kg) BMI 30.53 kg/(m2). EXAM: Examination of the hands reveals positive Tinel testing bilaterally. Negative Tinel testing of the cubital tunnel. Normal sensation, reflexes, and pulses ASSESSMENT: (M54.42, G89.29) Chronic left-sided low back pain with left-sided sciatica (primary encounter diagnos (more content not included)... Normal [facility] CNTHERAPYon 04-09-2020 CNTHERAPY OT/PT/Speech Visit (AKPTB) ----- AGA ADAN ([id number]) 1965 M Date Time Provider Department 04/09/20 10:45 AM DELLA HERNANDEZ (PT) TANIPTRobert Date Time Provider Department Center 04/09/2020 10:45 AM [id number], MICHAEL *AKPTB [facility] Reason for Visit: Physical Therapy [503] PT Discharge [752] Reason For Visit History Recorded Primary Visit Diagnosis:Chronic bilateral low back pain with bilateral sciatica [M54.42, M54.41, G89.29] Allergies As of Date: 04/09/2020 (No Known Allergies) Date Reviewed: 03/28/2020 Reviewed by: Earnest Liang - Fully Assessed Prescriptions as of 04/09/2020 Sig: COLACE ORAL Take by mouth. PREDNISONE 10 MG TABLET Take 10 mg by mouth once willi* VALTREX ORAL Take by mouth. X GABAPENTIN 300 MG CAPSULE TAKE 1 CAPSULE BY MOUTH AT 3P* PROLIA 60 MG/ML SUBCUTANEOUS * Inject 1 mL subcutaneously on* ZOLEDRONIC ACID 5 MG/100 ML I* Inject 100 mL intravenously o* METFORMIN ORAL Take 1,000 mg by mouth twice * ASPIRIN 81 MG TABLET,DELAYED * Take 1 tablet by mouth twice * GABAPENTIN 300 MG CAPSULE Take 1 capsule by mouth daily* VERAPAMIL 40 MG TABLET Take 40 mg by mouth three abigail* METHYLPREDNISOLONE 4 MG TABLE* Take 1 tablet by mouth as dir* Patient not taking: Reported on 03/08/2020 VITAMIN B COMPLEX CAPSULE Take 1 capsule by mouth once * MULTIVITAMIN CAPSULE Take 1 capsule by mouth once * ASCORBIC ACID (VITAMIN C) 1,0* Take 1,000 mg by mouth once d* JOAN (ZINGIBER OFFICINALIS)* Take by mouth. 2 pills daily BUPROPION XL 150 MG TAB once daily. FLUTICASONE PROPIONATE 50 MCG* 2 Sprays once daily. VIIBRYD 10 MG TABLET daily with breakfast. HYDROCORTISONE 2.5 % TOPICAL * 1 Applicator by RECTAL route * Patient taking differently: 1 Applicator by RECTAL route * QUETIAPINE 50 MG TABLET daily at bedtime. 2 pills at * ONDANSETRON HCL 4 MG TABLET every 8 hours as needed. ATENOLOL 50 MG TABLET once daily. QVAR 40 MCG/ACTUATION METERED* 2 Puffs as needed. GEMFIBROZIL 600 MG TABLET twice daily. OMEPRAZOLE 40 MG CAPSULE,EBONIE* Take 40 mg by mouth once willi* Progress Notes: Della Hernandez, PT, PT 04/09/2020 11:38 AM Signed Episode Visit Count: 9 Therapist That Will Oversee The Plan Of Care: Katina Start of Care Date: 02/26/20 Plan of Care Certification Date: 02/26/20 Next Certification Due Date: 05/26/20 [facility] PHYSICAL THERAPY TREATMENT NOTE ASSESSMENT: Aga Adan demonstrated difficulty with forward bending motions due to back pain, but no increased pain with activities done in the clinic. The patient will continue to benefit from ongoing skilled physical therapy for core strengthening. PLAN FOR NEXT VISIT: Re-assessment SUBJECTIVE: Reports that he feels some increased soreness in the low back today. Has been going on since Wednesday. Feels stronger though since he began therapy. Pain: Pain Pain Level: 5 Pain Location: Back OBJECTIVE MEASURES WITH LEVEL OF FUNCTION: Lumbar Spine AROM Lumbar Flexion: Moderate limitation;Minimal limitation LE Flexibility R Hamstring Flexibility: tight L Hamstring Flexibility: tight TREATMENT: Therapeutic Exercise: 3: PB bridge 5" x 10x2 4: LTR / DKTC x 20 with PB 5: sahrmans #2 2x10 7: rower unsupported SA 2.5 pl 10-10 x 3 8: straight arm pul downs 3x15 7 plates 9: paloff press 3pl seated PB 10 x 2 each 5" 10: seated THOR ext at plinth 5" x 20 12: CC rot 4pl 10 x 2 each Skilled Intervention: Patient was educated in proper exercise technique and purpose for exercises. Skilled judgment was provided in selection of appropriate interventions. Billing: [place]: Therapeutic Exercise ([id number]): 1:1 time: 40 minutes (3 units: 38-52 mins) Total time / Length of visit: 45 minutes Della Hernandez, RENETTA Hernandez, PT, PT 06/03/2020 10:34 AM Signed 06/03/2020 [facility]IL[facility] SPORTS [facility]ERAPY PHYSICAL THERAPY DISCONTINUANCE OF CARE Plan of Care Period: Start of Care Date: 02/26/20 Last Visit Date: 04/09/2020 DC from PT at this time Della Hernandez PT ----- Normal [facility] CNTHERAPYon 04-04-2020 CNTHERAPY OT/PT/Speech Visit (AKPTB) ----- AGA ADAN ([id number]) 1965 M Date Time Provider Department 04/04/20 11:00 AM MARIA LUISA CHAUDHARY ([facility]) AKPTB Date Time Provider Department Center 04/04/2020 11:00 AM [id number], RYAN ([facility]) AKPTB [facility] Reason for Visit: Physical Therapy [503] Primary Visit Diagnosis:Chronic bilateral low back pain with bilateral sciatica [M54.42, M54.41, G89.29] Allergies As of Date: 04/04/2020 (No Known Allergies) Date Reviewed: 03/28/2020 Reviewed by: Earnest Liang - Fully Assessed Prescriptions as of 04/04/2020 Sig: COLACE ORAL Take by mouth. PREDNISONE 10 MG TABLET Take 10 mg by mouth once willi* VALTREX ORAL Take by mouth. GABAPENTIN 300 MG CAPSULE TAKE 1 CAPSULE BY MOUTH AT 3P* PROLIA 60 MG/ML SUBCUTANEOUS * Inject 1 mL subcutaneously on* ZOLEDRONIC ACID 5 MG/100 ML I* Inject 100 mL intravenously o* METFORMIN ORAL Take 1,000 mg by mouth twice * ASPIRIN 81 MG TABLET,DELAYED * Take 1 tablet by mouth twice * GABAPENTIN 300 MG CAPSULE Take 1 capsule by mouth daily* VERAPAMIL 40 MG TABLET Take 40 mg by mouth three abigail* METHYLPREDNISOLONE 4 MG TABLE* Take 1 tablet by mouth as dir* Patient not taking: Reported on 03/08/2020 VITAMIN B COMPLEX CAPSULE Take 1 capsule by mouth once * MULTIVITAMIN CAPSULE Take 1 capsule by mouth once * ASCORBIC ACID (VITAMIN C) 1,0* Take 1,000 mg by mouth once d* JOAN (ZINGIBER OFFICINALIS)* Take by mouth. 2 pills daily BUPROPION XL 150 MG TAB once daily. FLUTICASONE PROPIONATE 50 MCG* 2 Sprays once daily. VIIBRYD 10 MG TABLET daily with breakfast. HYDROCORTISONE 2.5 % TOPICAL * 1 Applicator by RECTAL route * Patient taking differently: 1 Applicator by RECTAL route * QUETIAPINE 50 MG TABLET daily at bedtime. 2 pills at * ONDANSETRON HCL 4 MG TABLET every 8 hours as needed. ATENOLOL 50 MG TABLET once daily. QVAR 40 MCG/ACTUATION METERED* 2 Puffs as needed. GEMFIBROZIL 600 MG TABLET twice daily. OMEPRAZOLE 40 MG CAPSULE,EBONIE* Take 40 mg by mouth once willi* Progress Notes: Maria Luisa Chaudhary PTA, PT ASSIST 04/04/2020 11:45 AM Signed Episode Visit Count: 8 Therapist That Will Oversee The Plan Of Care: Katina Start of Care Date: 02/26/20 Plan of Care Certification Date: 02/26/20 Next Certification Due Date: 05/26/20 REHABILITATION AND SPORTS THERAPY PHYSICAL THERAPY TREATMENT NOTE ASSESSMENT: Aga Adan demonstrated good tolerance we to the exercises in the clinic. The patient will continue to benefit from ongoing skilled physical therapy for progression towards established goals. PLAN FOR NEXT VISIT: Progress with stabilization of lumbar spine and mobilization of thoracic spine. SUBJECTIVE: The patient notes the foot / ankle has been more sore recently. 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 Pain: Addressed in subjective. OBJECTIVE MEASURES WITH LEVEL OF FUNCTION: No objective measures taken this date. TREATMENT: Therapeutic Exercise: 3: PB bridge 5" x 10x2 4: LTR / DKTC x 20 with PB 5: sahrmans #2 2x10 7: rower unsupported SA 2.5 pl 10-10 x 3 8: straight arm pul downs 3x15 7 plates 9: paloff press 3pl seated PB 10 x 2 each 5" 10: seated THOR ext at plinth 5" x 20 11: seated THOR rot at plinth 12: CC rot 4pl 10 x 2 each Skilled Intervention: Patient was educated in proper exercise technique and purpose for exercises. Skilled judgment was provided in selection of appropriate interventions. Correct performance of therapeutic exercises was facilitated with verbal cuing. Billing: [place]: Therapeutic Exercise ([id number]): 1:1 time: 43 minutes (3 units: 38-52 mins) Total time / Length of visit: 43 minutes Maria Luisa Chaudhary PTA ----- Normal [facility] CNTHERAPYon 03-27-2020 CNTHERAPY OT/PT/Speech Visit (AKPTB) ----- AGA ADAN ([id number]) 1965 M Date Time Provider Department 03/27/20 9:15 AM SPENCER FREITAS (PT) VIK Date Time Provider Department Center 03/27/2020 9:15 AM [id number], PHILIP (PT) VIK [facility] Reason for Visit: Physical Therapy [503] Primary Visit Diagnosis:Chronic bilateral low back pain with bilateral sciatica [M54.42, M54.41, G89.29] Allergies As of Date: 03/27/2020 (No Known Allergies) Date Reviewed: 03/26/2020 Reviewed by: Joseph Mooney - Fully Assessed Prescriptions as of 03/27/2020 Sig: COLACE ORAL Take by mouth. PREDNISONE 10 MG TABLET Take 10 mg by mouth once willi* VALTREX ORAL Take by mouth. GABAPENTIN 300 MG CAPSULE TAKE 1 CAPSULE BY MOUTH AT 3P* PROLIA 60 MG/ML SUBCUTANEOUS * Inject 1 mL subcutaneously on* ZOLEDRONIC ACID 5 MG/100 ML I* Inject 100 mL intravenously o* METFORMIN ORAL Take 1,000 mg by mouth twice * ASPIRIN 81 MG TABLET,DELAYED * Take 1 tablet by mouth twice * GABAPENTIN 300 MG CAPSULE Take 1 capsule by mouth daily* VERAPAMIL 40 MG TABLET Take 40 mg by mouth three abigail* METHYLPREDNISOLONE 4 MG TABLE* Take 1 tablet by mouth as dir* Patient not taking: Reported on 03/08/2020 VITAMIN B COMPLEX CAPSULE Take 1 capsule by mouth once * MULTIVITAMIN CAPSULE Take 1 capsule by mouth once * ASCORBIC ACID (VITAMIN C) 1,0* Take 1,000 mg by mouth once d* JOAN (ZINGIBER OFFICINALIS)* Take by mouth. 2 pills daily BUPROPION XL 150 MG TAB once daily. FLUTICASONE PROPIONATE 50 MCG* 2 Sprays once daily. VIIBRYD 10 MG TABLET daily with breakfast. HYDROCORTISONE 2.5 % TOPICAL * 1 Applicator by RECTAL route * Patient taking differently: 1 Applicator by RECTAL route * QUETIAPINE 50 MG TABLET daily at bedtime. 2 pills at * ONDANSETRON HCL 4 MG TABLET every 8 hours as needed. ATENOLOL 50 MG TABLET once daily. QVAR 40 MCG/ACTUATION METERED* 2 Puffs as needed. GEMFIBROZIL 600 MG TABLET twice daily. OMEPRAZOLE 40 MG CAPSULE,EBONIE* Take 40 mg by mouth once willi* Progress Notes: Spencer Freitas PT, PT 03/27/2020 10:46 AM Signed Episode Visit Count: 7 Therapist That Will Oversee The Plan Of Care: Katina Start of Care Date: 02/26/20 Plan of Care Certification Date: 02/26/20 Next Certification Due Date: 05/26/20 REHABILITATION AND SPORTS THERAPY PHYSICAL THERAPY PROGRESS REPORT PLAN OF CARE UPDATE: Assessment: Aga Adan exhibits difficulty with extended periods on his feet. He has many orthopaedic and medical issues that are likely slowing progress. . He continues to be limited with standing, walking, stair negotiation, heavy exertion and physical activities. He is progressing as expected towards his therapy goals as demonstrated by: home exercise program compliance. He will benefit from continued skilled therapy requiring further lumbar stabilization in order to improve the above mentioned areas, as these are still having a considerable effect on the patients overall physical function. . Functional gains: Decreased intensity of pain Goals for Episode of Care: created on 02/26/20 through 04/26/20 [place] in home exercise program. - progressing Patient will decrease pain rating by 2 points to meet minimal clinical important difference for numeric pain rating scale. - not met Patient will demonstrate increase in hips and core by one full MMT grade - not assessed Perform standing activities with decreased report of symptoms/pain in 4-6 weeks. 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 SUBJECTIVE: . Pt notes that his LB is currently the worst area of all his concerns. Notes limited to no more than 30 minutes of upright activity that involves standing. Also bilateral ulnar sided N/T at night. Pt notes more pain in between shoulder blades. Has history of pain for 15 + yrs. Pt feels he is about 50% improved since starting PT. Pain: PROMIS Scales T-scores: mean of general population = 50. 5 points is clinically meaningfully difference Percentiles provide an indication of how the patient's score ranks in relation to the general population. Higher percentile rankings indicate better function/quality of life. 50th percentile is the average of the general population and indicates half of respondents had a worse score. T-scores: mean of general population = 50. 5 points is clinically meaningfully difference Percentiles provide an indication of how the patient's score ranks in relation to the general population. Higher percenti (more content not included)... Normal [facility] CNOVon 03-25-2020 CNOV Office Visit (AGHWW1 ) ----- AGA ADAN ([id number]) 1965 M Date Time Provider Department 03/25/20 9:45 AM JOSEPH MOONEY AGHWW1 During your visit today, we recorded the following information about you: Temperature Weight Height 98.3 degrees 88.5 kg 1.702 m Joseph Mooney DO 03/26/2020 8:37 AM Signed HPI: Aga Adan is a 54 year old male who presents today for follow-up of bilateral hand numbness issues. His EMG showed no evidence for cubital tunnel but does have mild to moderate carpal tunnel bilaterally. The most intense symptoms are in the fourth and fifth digit especially at night. Does have some mild weakness of the hand that he notices with his daily activities and drops things occasionally. Continues to struggle with back pain especially in the morning. He has done 7 visits of physical therapy which has helped with some core strengthening but still struggles with the pain. He is uncertain if he has increased tolerance to standing and walking movements. 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 PAST MEDICAL HISTORY Diagnosis Date - Acquired valgus deformity of foot, right - Anemia - Diabetes (HCC) - GERD (gastroesophageal reflux disease) - HTN (hypertension) - Hyperlipidemia - Myocardial infarct (HCC) 2006 - Pancreatic cyst 06/08/2019 - Pancreatitis - Post-traumatic arthritis of ankle, right - Shingles 10/28/2018 PAST SURGICAL HISTORY Procedure Laterality Date - CHOLECYSTECTOMY 2016 - COLONOSCOPY 07/15/2017 external grade 1 hemmorhoids - EGD 08/03/2017 bile gastric fluid, neg H pylori - HEART CATHETERIZATION 2016 - HIP SURGERY HX Left 05/2016 GIANNA - KNEE SURGERY HX Right 1983 - PANCREAS 06/08/2019 - PAST SURGICAL HISTORY OF 06/2018 BACK - PAST SURGICAL HISTORY OF Right 12/07/2018 R Ankle - SHOULDER SURGERY HX Bilateral 2009 RCR Social History Tobacco Use - Smoking status: Former Smoker Types: Cigars - Smokeless tobacco: Current User Types: Chew - Tobacco comment: 3 cigars/week Substance Use Topics - Alcohol use: Yes Comment: daily 3 beers - Drug use: No Current Outpatient Medications Medication Sig - docusate sodium (COLACE ORAL) Take by mouth. - predniSONE (DELTASONE) 10 mg tablet Take 10 mg by mouth once daily. 11 days - valacyclovir HCl (VALTREX ORAL) Take by mouth. - gabapentin (NEURONTIN) 300 mg capsule TAKE 1 CAPSULE BY MOUTH AT 3PM AND 1 CAPSULE BY MOUTH AT BEDTIME - denosumab (PROLIA) 60 mg/mL Inject 1 mL subcutaneously once every 6 months. - aspirin, enteric coated (ASPIRIN, ENTERIC COATED) 81 mg EC tablet Take 1 tablet by mouth twice daily for 14 days. - verapamil (CALAN, ISOPTIN) 40 mg tablet Take 40 mg by mouth three times daily. - B Complex Vitamins capsule Take 1 capsule by mouth once daily. - Multivitamin capsule Take 1 capsule by mouth once daily. - Ascorbic Acid (VITAMIN C) 1,000 mg tablet Take 1,000 mg by mouth once daily. Takes 2 tablets daily - Walker Castillongiber officinalis, (JOAN EXTRACT) 250 mg cap Take by mouth. 2 pills daily - buPROPion XL (WELLBUTRIN XL) 150 mg 24 hr tablet once daily. - fluticasone (FLONASE) 50 mcg/actuation nasal spray 2 Sprays once daily. - QUEtiapine (SEROQUEL) 50 mg tablet daily at bedtime. 2 pills at bedtime - atenolol (TENORMIN) 50 mg tablet once daily. - QVAR 40 mcg/actuation inhaler 2 Puffs as needed. - Omeprazole 40 mg capsule Take 40 mg by mouth once daily. - zoledronic acid (RECLAST) 5 mg/100 mL pgbk PREMIX piggyback Inject 100 mL intravenously one time only for 1 dose. Once only for 1 time - metformin HCl (METFORMIN ORAL) Take 1,000 mg by mouth twice daily. - gabapentin (NEURONTIN) 300 mg capsule Take 1 capsule by mouth daily at bedtime for 30 days. - methylPREDNISolone (MEDROL, TOYA,) 4 mg Dose-Pack Take 1 tablet by mouth as directed. As directed on package (Patient not taking: Reported on 03/08/2020 ) - VIIBRYD 10 mg daily with breakfast. - hydrocortisone (ANUSOL-HC) 2.5 % rectal cream 1 Applicator by RECTAL route twice daily. (Patient taking differently: 1 Applicator by RECTAL route as needed. ) - ondansetron (ZOFRAN) 4 mg tablet every 8 hours as needed. - gemfibrozil (LOPID) 600 mg tablet twice daily. No current facility-administered medications for this visit. ALLERGIES No Known Allergies Temp 98.3 Ht 5' 7" (1.70m) Wt 195 lb (88.5kg) BMI 30.53 kg/(m2). EXAM: Examination of the lumbar spine reveals tenderness of para spinal muscles at L5. Pain with straight leg raise of the Left leg. Pain with lumbar flexion and rotation. Weakness with testing of Left leg quadriceps, hamstrings, and hip flexors. Stork testing negative. Antalgic gait secondary to foot issues. Normal sensation, reflexes, and pulses ASSESSMENT: (M54.42, G89.29) Chronic left-sided low back pain (more content not included)... Normal [facility] CNTHERAPYon 03-21-2020 CNTHERAPY OT/PT/Speech Visit (AKPTB) ----- AAG ADAN ([id number]) 1965 M Date Time Provider Department 03/21/20 9:30 AM MARIA LUISA CHAUDHARY ([facility]) AKPTB Date Time Provider Department Center 03/21/2020 9:30 AM [id number], RYAN ([facility]) AKPTB [facility] Reason for Visit: Physical Therapy [503] Primary Visit Diagnosis:Chronic bilateral low back pain with bilateral sciatica [M54.42, M54.41, G89.29] Allergies As of Date: 03/21/2020 (No Known Allergies) Date Reviewed: 03/08/2020 Reviewed by: Judy Daniels - Fully Assessed Prescriptions as of 03/21/2020 Sig: COLACE ORAL Take by mouth. PREDNISONE 10 MG TABLET Take 10 mg by mouth once willi* VALTREX ORAL Take by mouth. GABAPENTIN 300 MG CAPSULE TAKE 1 CAPSULE BY MOUTH AT 3P* PROLIA 60 MG/ML SUBCUTANEOUS * Inject 1 mL subcutaneously on* ZOLEDRONIC ACID 5 MG/100 ML I* Inject 100 mL intravenously o* METFORMIN ORAL Take 1,000 mg by mouth twice * ASPIRIN 81 MG TABLET,DELAYED * Take 1 tablet by mouth twice * GABAPENTIN 300 MG CAPSULE Take 1 capsule by mouth daily* VERAPAMIL 40 MG TABLET Take 40 mg by mouth three abigail* METHYLPREDNISOLONE 4 MG TABLE* Take 1 tablet by mouth as dir* Patient not taking: Reported on 03/08/2020 VITAMIN B COMPLEX CAPSULE Take 1 capsule by mouth once * MULTIVITAMIN CAPSULE Take 1 capsule by mouth once * ASCORBIC ACID (VITAMIN C) 1,0* Take 1,000 mg by mouth once d* JOAN (ZINGIBER OFFICINALIS)* Take by mouth. 2 pills daily BUPROPION XL 150 MG TAB once daily. FLUTICASONE PROPIONATE 50 MCG* 2 Sprays once daily. VIIBRYD 10 MG TABLET daily with breakfast. HYDROCORTISONE 2.5 % TOPICAL * 1 Applicator by RECTAL route * Patient taking differently: 1 Applicator by RECTAL route * QUETIAPINE 50 MG TABLET daily at bedtime. 2 pills at * ONDANSETRON HCL 4 MG TABLET every 8 hours as needed. ATENOLOL 50 MG TABLET once daily. QVAR 40 MCG/ACTUATION METERED* 2 Puffs as needed. GEMFIBROZIL 600 MG TABLET twice daily. OMEPRAZOLE 40 MG CAPSULE,EBONIE* Take 40 mg by mouth once willi* Progress Notes: Maria Luisa Chaudhary, MADINA, PT ASSIST 03/21/2020 10:14 AM Signed Episode Visit Count: 6 Therapist That Will Oversee The Plan Of Care: Katina Start of Care Date: 02/26/20 Plan of Care Certification Date: 02/26/20 Next Certification Due Date: 05/26/20 REHABILITATION AND SPORTS THERAPY PHYSICAL THERAPY TREATMENT NOTE ASSESSMENT: Aga Adan demonstrated difficulty with transitional movements due to increased pain. He was abl to complete the core strengthening / mobility exercises but with a slowed / somewhat guarded pace. The patient will continue to benefit from ongoing skilled physical therapy for progression towards established goals. PLAN FOR NEXT VISIT: progress with exercises as tolerated SUBJECTIVE: The patient has been experiencing some increased pain this week. Primarily in the upper and low back. He slept poorly last night as he was getting some finger N:T that was actually painful. Pain: Addressed in subjective. OBJECTIVE MEASURES WITH LEVEL OF FUNCTION: No objective measures taken this date. TREATMENT: Therapeutic Exercise: 3: bridge PB x 20 5" hold 4: LTR / DKTC x 20 with PB 5: sahrmans #2 2x10 6: curl ups 2x10 PB lift 7: rower unsupported SA 2.5 pl 10-10 x 3 8: straight arm pul downs 3x15 6 plates 9: paloff press 3pl seated PB 10 x 2 each 5" 10: seated THOR ext at plinth 5" x 20 11: seated THOR rot at plinth 12: long lever CC rot 3pl 10 x 2 each 13: prone hip abd iso 10" x 10 belt Skilled Intervention: Patient was educated in proper exercise technique and purpose for exercises. Skilled judgment was provided in selection of appropriate interventions. Correct performance of therapeutic exercises was facilitated with verbal and tactile cuing. Billing: Carisa: Therapeutic Exercise (41360): 1:1 time: 42 minutes (3 units: 38-52 mins) Total time / Length of visit: 42 minutes Maria Luisa Chaudhary PTA ----- Normal [facility] CNTHERAPYon 03-14-2020 CNTHERAPY OT/PT/Speech Visit (AKPTB) ----- AGA ADAN ([id number]) 1965 M Date Time Provider Department 03/14/20 9:30 AM [facility]K Date Time Provider Department Center 03/14/2020 9:30 AM [id number], RYAN ([facility]) AKYULISSA [facility] Reason for Visit: Physical Therapy [503] Primary Visit Diagnosis:Chronic bilateral low back pain with bilateral sciatica [M54.42, M54.41, G89.29] Allergies As of Date: 03/14/2020 (No Known Allergies) Date Reviewed: 03/08/2020 Reviewed by: Judy Daniels - Fully Assessed Prescriptions as of 03/14/2020 Sig: COLACE ORAL Take by mouth. PREDNISONE 10 MG TABLET Take 10 mg by mouth once willi* VALTREX ORAL Take by mouth. GABAPENTIN 300 MG CAPSULE TAKE 1 CAPSULE BY MOUTH AT 3P* PROLIA 60 MG/ML SUBCUTANEOUS * Inject 1 mL subcutaneously on* ZOLEDRONIC ACID 5 MG/100 ML I* Inject 100 mL intravenously o* METFORMIN ORAL Take 1,000 mg by mouth twice * ASPIRIN 81 MG TABLET,DELAYED * Take 1 tablet by mouth twice * GABAPENTIN 300 MG CAPSULE Take 1 capsule by mouth daily* VERAPAMIL 40 MG TABLET Take 40 mg by mouth three abigail* METHYLPREDNISOLONE 4 MG TABLE* Take 1 tablet by mouth as dir* Patient not taking: Reported on 03/08/2020 VITAMIN B COMPLEX CAPSULE Take 1 capsule by mouth once * MULTIVITAMIN CAPSULE Take 1 capsule by mouth once * ASCORBIC ACID (VITAMIN C) 1,0* Take 1,000 mg by mouth once d* JOAN (ZINGIBER OFFICINALIS)* Take by mouth. 2 pills daily BUPROPION XL 150 MG TAB once daily. FLUTICASONE PROPIONATE 50 MCG* 2 Sprays once daily. VIIBRYD 10 MG TABLET daily with breakfast. HYDROCORTISONE 2.5 % TOPICAL * 1 Applicator by RECTAL route * Patient taking differently: 1 Applicator by RECTAL route * QUETIAPINE 50 MG TABLET daily at bedtime. 2 pills at * ONDANSETRON HCL 4 MG TABLET every 8 hours as needed. ATENOLOL 50 MG TABLET once daily. QVAR 40 MCG/ACTUATION METERED* 2 Puffs as needed. GEMFIBROZIL 600 MG TABLET twice daily. OMEPRAZOLE 40 MG CAPSULE,EBONIE* Take 40 mg by mouth once willi* Progress Notes: Maria Luisa Chaudhary MEDICAL WRITER, PT ASSIST 03/14/2020 10:13 AM Signed Episode Visit Count: 5 Therapist That Will Oversee The Plan Of Care: Katina Start of Care Date: 02/26/20 Plan of Care Certification Date: 02/26/20 Next Certification Due Date: 05/26/20 REHABILITATION AND SPORTS THERAPY PHYSICAL THERAPY TREATMENT NOTE ASSESSMENT: Aga Adan demonstrated some slowed and guarded movements / transitions during the session but was able to complete the exercises with minmal complaints. The patient will continue to benefit from ongoing skilled physical therapy for progression towards established goals. PLAN FOR NEXT VISIT: progress with exercises as tolerated SUBJECTIVE: The patient notes increased low back pain since over- doing it on a project at home 2 days ago. Pain: Addressed in subjective. OBJECTIVE MEASURES WITH LEVEL OF FUNCTION: No objective measures taken this date. TREATMENT: Therapeutic Exercise: 3: bridge PB x 20 5" hold 4: LTR x 20 with PB 5: sahrmans #2 2x10 6: curl ups 2x10 PB lift 7: rower unsupported 3.5 pl 10-15 x 3 8: straight arm pul downs 3x15 5 plates 9: paloff press 3pl seated PB 10 x 2 each 5" 10: seated THOR ext at plinth 5" x 20 11: seated THOR rot at plinth 12: wood choppers 4pl 10 x 2 each hi-lo 13: prone hip abd iso 10" x 10 belt Skilled Intervention: Patient was educated in proper exercise technique and purpose for exercises. Skilled judgment was provided in selection of appropriate interventions. Correct performance of therapeutic exercises was facilitated with verbal and tactile cuing. Girmaing: Carisa: Therapeutic Exercise (21607): 1:1 time: 45 minutes (3 units: 38-52 mins) Total time / Length of visit: 45 minutes Maria Luisa Chaudhary PTA ----- Normal [facility] CNTHERAPYon 03-12-2020 CNTHERAPY OT/PT/Speech Visit (AKPTB) ----- AGA ADAN ([id number]) 1965 M Date Time Provider Department 03/12/20 9:30 AM MARIA LUISA CHAUDHARY ([facility]) TANIP[place] Date Time Provider Department Center 03/12/2020 9:30 AM [id number], RYAN ([facility]) RIPTRobert [facility] Reason for Visit: Physical Therapy [503] Primary Visit Diagnosis:Chronic bilateral low back pain with bilateral sciatica [M54.42, M54.41, G89.29] Allergies As of Date: 03/12/2020 (No Known Allergies) Date Reviewed: 03/08/2020 Reviewed by: Judy Daniels - Fully Assessed Prescriptions as of 03/12/2020 Sig: COLACE ORAL Take by mouth. PREDNISONE 10 MG TABLET Take 10 mg by mouth once willi* VALTREX ORAL Take by mouth. GABAPENTIN 300 MG CAPSULE TAKE 1 CAPSULE BY MOUTH AT 3P* PROLIA 60 MG/ML SUBCUTANEOUS * Inject 1 mL subcutaneously on* ZOLEDRONIC ACID 5 MG/100 ML I* Inject 100 mL intravenously o* METFORMIN ORAL Take 1,000 mg by mouth twice * ASPIRIN 81 MG TABLET,DELAYED * Take 1 tablet by mouth twice * GABAPENTIN 300 MG CAPSULE Take 1 capsule by mouth daily* VERAPAMIL 40 MG TABLET Take 40 mg by mouth three abigail* METHYLPREDNISOLONE 4 MG TABLE* Take 1 tablet by mouth as dir* Patient not taking: Reported on 03/08/2020 VITAMIN B COMPLEX CAPSULE Take 1 capsule by mouth once * MULTIVITAMIN CAPSULE Take 1 capsule by mouth once * ASCORBIC ACID (VITAMIN C) 1,0* Take 1,000 mg by mouth once d* JOAN (ZINGIBER OFFICINALIS)* Take by mouth. 2 pills daily BUPROPION XL 150 MG TAB once daily. FLUTICASONE PROPIONATE 50 MCG* 2 Sprays once daily. VIIBRYD 10 MG TABLET daily with breakfast. HYDROCORTISONE 2.5 % TOPICAL * 1 Applicator by RECTAL route * Patient taking differently: 1 Applicator by RECTAL route * QUETIAPINE 50 MG TABLET daily at bedtime. 2 pills at * ONDANSETRON HCL 4 MG TABLET every 8 hours as needed. ATENOLOL 50 MG TABLET once daily. QVAR 40 MCG/ACTUATION METERED* 2 Puffs as needed. GEMFIBROZIL 600 MG TABLET twice daily. OMEPRAZOLE 40 MG CAPSULE,EBONIE* Take 40 mg by mouth once willi* Progress Notes: Maria Luisa Chaudhary PTA, PT ASSIST 03/12/2020 10:15 AM Signed Episode Visit Count: 4 Therapist That Will Oversee The Plan Of Care: Katina Start of Care Date: 02/26/20 Plan of Care Certification Date: 02/26/20 Next Certification Due Date: 05/26/20 REHABILITATION AND SPORTS THERAPY PHYSICAL THERAPY TREATMENT NOTE ASSESSMENT: Aga Adan demonstrated good toleracne to the exercises in the clinic. He is still challenged by the TrA strengthening. The patient will continue to benefit from ongoing skilled physical therapy for progression towards established goals. PLAN FOR NEXT VISIT: progress with exercises as tolerated SUBJECTIVE: Hip and LB better since injection. Currently right - sided thoracic discomfort is primary complaint. He is doing the exercises intermittently through the day. Pain: Addressed in subjective. OBJECTIVE MEASURES WITH LEVEL OF FUNCTION: No objective measures taken this date. TREATMENT: Therapeutic Exercise: 3: bridge PB x 20 5" hold 4: LTR x 20 with PB 5: sahrmans #2 2x10 6: curl ups 2x10 PB lift 7: rower unsupported 3.5 pl 10-15 x 3 8: straight arm pul downs 3x10 5 plates 9: paloff press 3pl seated PB 10 x 2 each 5" 10: seated THOR ext at plinth 5" x 20 11: seated THOR rot at plinth Skilled Intervention: Patient was educated in proper exercise technique and purpose for exercises. Skilled judgment was provided in selection of appropriate interventions. Correct performance of therapeutic exercises was facilitated with verbal cuing. Avelina: Carisa: Therapeutic Exercise ([id number]): 1:1 time: 45 minutes (3 units: 38-52 mins) Total time / Length of visit: 45 minutes Maria Luisa Chaudhary PTA ----- Normal [facility] CNOVon 03-07-2020 CNOV Office Visit (AGHWW1 ) ----- AGA ADAN ([id number]) 1965 M Date Time Provider Department 03/07/20 9:45 AM EARNEST LIANG AGHWW1 During your visit today, we recorded the following information about you: Temperature Weight Height 98.2 degrees 90.7 kg 1.702 m Mercedes Gutierrez 03/28/2020 4:12 PM Signed REVIEW OF SYSTEMS: GENERAL: Well developed, well nourished. No acute distress PAIN: Negative for pain, history of chronic pain or current treatment for chronic pain conditions CARDIOVASCULAR: Negative for chest pain, leg swelling and palpations. MSK: joint pain yes and back pain yes SKIN: Negative for lesions, rash, itching, metal sensitivity NEURO: Negative for seizure, trauma, numbness/tingling of extremities./yesbil foot and peter foot ENDOCRINE: Diabetes Type 2 yes HEMATOLOGY: Negative for excessive bleeding, clots, bleeding disorders. Earnest Liang DPM, FACFAS 03/28/2020 4:12 PM Signed DOS: 12/11/2018 POD: ~16.5 months Procedure: 1. Ankle arthrodesis, right 2. Distal tibiofibular joint arthrodesis, right 3. Bone marrow aspiration, right tibia This 54 year old male presents for a post op visit. He is here to discuss the lab results and to discuss revision of the non union. Patient is very frustrated and upset with his course of treatment. 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 Admits that he stopped tobacco use despite elevated labs. He wants to proceed with the non union revision despite the risks of another non union. Does admit to pain and has been partial weightbearing in his boot. Denies any current nausea, vomiting, fever, chills, shortness of breath, chest pain or calf pain. Denies any other pedal complaints. PAST MEDICAL HISTORY Diagnosis Date - Acquired valgus deformity of foot, right - Anemia - Diabetes (HCC) - GERD (gastroesophageal reflux disease) - HTN (hypertension) - Hyperlipidemia - Myocardial infarct (HCC) 2006 - Pancreatic cyst 06/08/2019 - Pancreatitis - Post-traumatic arthritis of ankle, right - Shingles 10/28/2018 Current Outpatient Medications Medication Sig - docusate sodium (COLACE ORAL) Take by mouth. - valacyclovir HCl (VALTREX ORAL) Take by mouth. - gabapentin (NEURONTIN) 300 mg capsule TAKE 1 CAPSULE BY MOUTH AT 3PM AND 1 CAPSULE BY MOUTH AT BEDTIME - denosumab (PROLIA) 60 mg/mL Inject 1 mL subcutaneously once every 6 months. - metformin HCl (METFORMIN ORAL) Take 1,000 mg by mouth twice daily. - gabapentin (NEURONTIN) 300 mg capsule Take 1 capsule by mouth daily at bedtime for 30 days. - verapamil (CALAN, ISOPTIN) 40 mg tablet Take 40 mg by mouth three times daily. - B Complex Vitamins capsule Take 1 capsule by mouth once daily. - Multivitamin capsule Take 1 capsule by mouth once daily. - Ascorbic Acid (VITAMIN C) 1,000 mg tablet Take 1,000 mg by mouth once daily. Takes 2 tablets daily - buPROPion XL (WELLBUTRIN XL) 150 mg 24 hr tablet once daily. - fluticasone (FLONASE) 50 mcg/actuation nasal spray 2 Sprays once daily. - QUEtiapine (SEROQUEL) 50 mg tablet daily at bedtime. 2 pills at bedtime - ondansetron (ZOFRAN) 4 mg tablet every 8 hours as needed. - atenolol (TENORMIN) 50 mg tablet once daily. - QVAR 40 mcg/actuation inhaler 2 Puffs as needed. - Omeprazole 40 mg capsule Take 40 mg by mouth once daily. - predniSONE (DELTASONE) 10 mg tablet Take 10 mg by mouth once daily. 11 days - zoledronic acid (RECLAST) 5 mg/100 mL pgbk PREMIX piggyback Inject 100 mL intravenously one time only for 1 dose. Once only for 1 time - aspirin, enteric coated (ASPIRIN, ENTERIC COATED) 81 mg EC tablet Take 1 tablet by mouth twice daily for 14 days. - methylPREDNISolone (MEDROL, TOYA,) 4 mg Dose-Pack Take 1 tablet by mouth as directed. As directed on package (Patient not taking: Reported on 03/08/2020 ) - Joan, Zingiber officinalis, (JOAN EXTRACT) 250 mg cap Take by mouth. 2 pills daily - VIIBRYD 10 mg daily with breakfast. - hydrocortisone (ANUSOL-HC) 2.5 % rectal cream 1 Applicator by RECTAL route twice daily. (Patient taking differently: 1 Applicator by RECTAL route as needed. ) - gemfibrozil (LOPID) 600 mg tablet twice daily. No current facility-administered medications for this visit. ALLERGIES No Known Allergies Objective: Patient presents partial weightbearing to right leg. Patient refuses exam and would like like to talk about lab results. His mood is very upset and frustrated Note has facial droop due to bells palsy. 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 All questions were answered to patient's apparent satisfaction. - Discussed non union in detail and course of treatments. We will not proceed with surgery until his cotinine (more content not included)... Normal [facility] CNTHERAPYon 03-07-2020 CNTHERAPY OT/PT/Speech Visit (AKPTB) ----- AGA ADAN ([id number]) 1965 M Date Time Provider Department 03/07/20 10:15 AM MARIA LUISA CHAUDHARY ([facility]) AKPTB Date Time Provider Department [place] 03/07/2020 10:15 AM [id number], RYAN ([facility]) AKPTB [facility] Reason for Visit: Physical Therapy [503] Primary Visit Diagnosis:Chronic bilateral low back pain with bilateral sciatica [M54.42, M54.41, G89.29] Allergies As of Date: 03/07/2020 (No Known Allergies) Date Reviewed: 03/07/2020 Reviewed by: Violeta (Res) TRIPP Monroy - Fully Assessed Prescriptions as of 03/07/2020 Sig: COLACE ORAL Take by mouth. PREDNISONE 10 MG TABLET Take 10 mg by mouth once willi* VALTREX ORAL Take by mouth. GABAPENTIN 300 MG CAPSULE TAKE 1 CAPSULE BY MOUTH AT 3P* PROLIA 60 MG/ML SUBCUTANEOUS * Inject 1 mL subcutaneously on* ZOLEDRONIC ACID 5 MG/100 ML I* Inject 100 mL intravenously o* METFORMIN ORAL Take 1,000 mg by mouth twice * ASPIRIN 81 MG TABLET,DELAYED * Take 1 tablet by mouth twice * GABAPENTIN 300 MG CAPSULE Take 1 capsule by mouth daily* VERAPAMIL 40 MG TABLET Take 40 mg by mouth three abigail* METHYLPREDNISOLONE 4 MG TABLE* Take 1 tablet by mouth as dir* VITAMIN B COMPLEX CAPSULE Take 1 capsule by mouth once * MULTIVITAMIN CAPSULE Take 1 capsule by mouth once * ASCORBIC ACID (VITAMIN C) 1,0* Take 1,000 mg by mouth once d* JOAN (ZINGIBER OFFICINALIS)* Take by mouth. 2 pills daily BUPROPION XL 150 MG TAB once daily. FLUTICASONE PROPIONATE 50 MCG* 2 Sprays once daily. VIIBRYD 10 MG TABLET daily with breakfast. HYDROCORTISONE 2.5 % TOPICAL * 1 Applicator by RECTAL route * Patient taking differently: 1 Applicator by RECTAL route * QUETIAPINE 50 MG TABLET daily at bedtime. 2 pills at * ONDANSETRON HCL 4 MG TABLET every 8 hours as needed. ATENOLOL 50 MG TABLET once daily. QVAR 40 MCG/ACTUATION METERED* 2 Puffs as needed. GEMFIBROZIL 600 MG TABLET twice daily. OMEPRAZOLE 40 MG CAPSULE,EBONIE* Take 40 mg by mouth once willi* Progress Notes: Maria Luisa Chaudhary PTA, PT ASSIST 03/07/2020 11:03 AM Signed Episode Visit Count: 3 Therapist That Will Oversee The Plan Of Care: Katina Start of Care Date: 02/26/20 Plan of Care Certification Date: 02/26/20 Next Certification Due Date: 05/26/20 REHABILITATION AND SPORTS THERAPY PHYSICAL THERAPY TREATMENT NOTE ASSESSMENT: Aga Adan demonstrated good tolerance to the exercises in the clinic, reporting no increased discomfort. . He required MIN cues for technique correction with the HEP. The patient appeared to understand the additions and / or modifications to the HEP. Abbreviated session per patient request. The patient will continue to benefit from ongoing skilled physical therapy for progression towards established goals. PLAN FOR NEXT VISIT: progress with exercises as tolerated SUBJECTIVE: The patient notes compliance with the HEP . He feels the exercises are helping. Some soreness to start the session. Pain: N/A OBJECTIVE MEASURES WITH LEVEL OF FUNCTION: No objective measures taken this date. TREATMENT: Therapeutic Exercise: 2: H/L clams jimenez 5" x 20 3: bridge x 10 5" hold 4: LTR x 10 5: sahrmans #2 2x10 6: curl ups 2x10 7: rower 3 plates 2x10 8: straight arm pul downs 3x10 5 plates 9: paloff press 2pl 10 x 2 each 5" Skilled Intervention: Patient was educated in proper exercise technique and purpose for exercises. Skilled judgment was provided in selection of appropriate interventions. Correct performance of therapeutic exercises was facilitated with verbal cuing. Patient education as noted. Girmaing: Carisa: Therapeutic Exercise (39151): 1:1 time: 30 minutes (2 units: 23-37 mins) Total time / Length of visit: 30 minutes Maria Luisa Chaudhary PTA ----- Normal [facility] CNOVon 03-04-2020 CNOV Office Visit (AGHWW1 ) ----- AGA ADAN ([id number]) 1965 M Date Time Provider Department 03/04/20 9:15 AM JOSEPH MOONEY [id number] During your visit today, we recorded the following information about you: Respiration Weight Height 18/minute 90.7 kg 1.702 m Joseph Mooney DO 03/04/2020 1:14 PM Signed HPI: Aga Daniela Earlkaley is a 54 year old male who presents today follow-up of low back pain and MRI results. MRI was because of such severe back pain that would shoot into the left hip and leg combined with weakness issues. He was struggling to do his ADLs. Also dealing with a pelvis pain issue from a fall 10 months ago and may have had a fracture. S/P left GIANNA after developed necrosis. Still dealing with foot and ankle issues leading to multiple levels of dysfunction (Still in right walker boot). MRI shows: 1. ?No high-grade spinal canal stenosis. ?Mild foraminal stenosis as described. 2. ?Postsurgical changes of L5 laminectomy and partial resection of the L4 spinous process. PAST MEDICAL HISTORY Diagnosis Date - Acquired valgus deformity of foot, right - Anemia - Diabetes (HCC) - GERD (gastroesophageal reflux disease) - HTN (hypertension) - Hyperlipidemia - Myocardial infarct (HCC) 2006 - Pancreatic cyst 06/08/2019 - Pancreatitis - Post-traumatic arthritis of ankle, right - Shingles 10/28/2018 PAST SURGICAL HISTORY Procedure Laterality Date - CHOLECYSTECTOMY 2017 - COLONOSCOPY 07/15/2017 external grade 1 hemmorhoids - EGD 08/03/2017 bile gastric fluid, neg H pylori - HEART CATHETERIZATION 2016 - HIP SURGERY HX Left 05/2016 GIANNA - KNEE SURGERY HX Right 1984 - PANCREAS 06/08/2019 - PAST SURGICAL HISTORY OF 06/2018 BACK - PAST SURGICAL HISTORY OF Right 12/07/2018 R Ankle - SHOULDER SURGERY HX Bilateral 2008 [facility] Social History Tobacco Use - Smoking status: Former Smoker Types: Cigars - Smokeless tobacco: Current User Types: Chew - Tobacco comment: 3 cigars/week Substance Use Topics - Alcohol use: Yes Comment: daily 3 beers - Drug use: No Current Outpatient Medications Medication Sig - docusate sodium (COLACE ORAL) Take by mouth. - predniSONE (DELTASONE) 10 mg tablet Take 10 mg by mouth once daily. 11 days - valacyclovir HCl (VALTREX ORAL) Take by mouth. - gabapentin (NEURONTIN) 300 mg capsule TAKE 1 CAPSULE BY MOUTH AT 3PM AND 1 CAPSULE BY MOUTH AT BEDTIME - denosumab (PROLIA) 60 mg/mL Inject 1 mL subcutaneously once every 6 months. - metformin HCl (METFORMIN ORAL) Take 1,000 mg by mouth twice daily. - aspirin, enteric coated (ASPIRIN, ENTERIC COATED) 81 mg EC tablet Take 1 tablet by mouth twice daily for 14 days. - gabapentin (NEURONTIN) 300 mg capsule Take 1 capsule by mouth daily at bedtime for 30 days. - B Complex Vitamins capsule Take 1 capsule by mouth once daily. - Multivitamin capsule Take 1 capsule by mouth once daily. - Ascorbic Acid (VITAMIN C) 1,000 mg tablet Take 1,000 mg by mouth once daily. Takes 2 tablets daily - Joan, Zingiber officinalis, (JOAN EXTRACT) 250 mg cap Take by mouth. 2 pills daily - buPROPion XL (WELLBUTRIN XL) 150 mg 24 hr tablet once daily. - fluticasone (FLONASE) 50 mcg/actuation nasal spray 2 Sprays once daily. - QUEtiapine (SEROQUEL) 50 mg tablet daily at bedtime. 2 pills at bedtime - atenolol (TENORMIN) 50 mg tablet once daily. - QVAR 40 mcg/actuation inhaler 2 Puffs as needed. - Omeprazole 40 mg capsule Take 40 mg by mouth once daily. - zoledronic acid (RECLAST) 5 mg/100 mL pgbk PREMIX piggyback Inject 100 mL intravenously one time only for 1 dose. Once only for 1 time - verapamil (CALAN, ISOPTIN) 40 mg tablet Take 40 mg by mouth three times daily. - methylPREDNISolone (MEDROL, TOYA,) 4 mg Dose-Pack Take 1 tablet by mouth as directed. As directed on package - VIIBRYD 10 mg daily with breakfast. - hydrocortisone (ANUSOL-HC) 2.5 % rectal cream 1 Applicator by RECTAL route twice daily. (Patient taking differently: 1 Applicator by RECTAL route as needed. ) - ondansetron (ZOFRAN) 4 mg tablet every 8 hours as needed. - gemfibrozil (LOPID) 600 mg tablet twice daily. No current facility-administered medications for this visit. ALLERGIES No Known Allergies REVIEW OF SYSTEMS: GENERAL: Well developed, well nourished. No acute distress PAIN: Pain lower back CARDIOVASCULAR: Negative for chest pain, leg swelling and palpations. MSK: joint pain yes SKIN: Negative for lesions, rash, itching, metal sensitivity NEURO: Negative for seizure, trauma, numbness/tingling of extremities. ENDOCRINE: Negative for Diabetes Type 1 and Type 2 HEMATOLOGY: asp 81mg Resp 18 Ht 5' 7" (1.70m) Wt 200 lb (90.7kg) BMI 31.32 kg/(m2). EXAM: Focal exam of Left hip reveals tenderness on greater trochanter. Pain with hip flexion and abduction. Pain with gluteal stretching. Negative leg roll and hip sc (more content not included)... Normal [facility] CNTHERAPYon 02-29-2020 CNTHERAPY OT/PT/Speech Visit (AKPTB) ----- AGA ADAN ([id number]) 1965 M Date Time Provider Department 02/29/20 11:15 AM DELLA HERNANDEZ (PT) AKPTB Date Time Provider Department Center 02/29/2020 11:15 AM [id number], MICHAEL *AKPTB [facility] Reason for Visit: Physical Therapy [503] Primary Visit Diagnosis:Chronic bilateral low back pain with bilateral sciatica [M54.42, M54.41, G89.29] Allergies As of Date: 02/29/2020 (No Known Allergies) Date Reviewed: 02/28/2020 Reviewed by: Patricia Schmitz DPM - Fully Assessed Prescriptions as of 02/29/2020 Sig: GABAPENTIN 300 MG CAPSULE TAKE 1 CAPSULE BY MOUTH AT 3P* PROLIA 60 MG/ML SUBCUTANEOUS * Inject 1 mL subcutaneously on* ZOLEDRONIC ACID 5 MG/100 ML I* Inject 100 mL intravenously o* METFORMIN ORAL Take 1,000 mg by mouth twice * ASPIRIN 81 MG TABLET,DELAYED * Take 1 tablet by mouth twice * GABAPENTIN 300 MG CAPSULE Take 1 capsule by mouth daily* VERAPAMIL 40 MG TABLET Take 40 mg by mouth three abigail* METHYLPREDNISOLONE 4 MG TABLE* Take 1 tablet by mouth as dir* VITAMIN B COMPLEX CAPSULE Take 1 capsule by mouth once * MULTIVITAMIN CAPSULE Take 1 capsule by mouth once * ASCORBIC ACID (VITAMIN C) 1,0* Take 1,000 mg by mouth once d* JOAN (ZINGIBER OFFICINALIS)* Take by mouth. 2 pills daily BUPROPION XL 150 MG TAB once daily. FLUTICASONE PROPIONATE 50 MCG* 2 Sprays once daily. VIIBRYD 10 MG TABLET daily with breakfast. HYDROCORTISONE 2.5 % TOPICAL * 1 Applicator by RECTAL route * Patient taking differently: 1 Applicator by RECTAL route * QUETIAPINE 50 MG TABLET daily at bedtime. 2 pills at * ONDANSETRON HCL 4 MG TABLET every 8 hours as needed. ATENOLOL 50 MG TABLET once daily. QVAR 40 MCG/ACTUATION METERED* 2 Puffs as needed. GEMFIBROZIL 600 MG TABLET twice daily. OMEPRAZOLE 40 MG CAPSULE,EBONIE* Take 40 mg by mouth once willi* Progress Notes: Della Hernandez, PT, PT 02/29/2020 11:55 AM Signed Episode Visit Count: 2 Therapist That Will Oversee The Plan Of Care: Katina Start of Care Date: 02/26/20 Plan of Care Certification Date: 02/26/20 Next Certification Due Date: 05/26/20 REHABILITATION AND SPORTS THERAPY PHYSICAL THERAPY TREATMENT NOTE ASSESSMENT: Aga Adan demonstrated good recall of HEP. Challenged with curl up exercise, fatigued quickly. The patient will continue to benefit from ongoing skilled physical therapy for core strengthening. PLAN FOR NEXT VISIT: progress with exercises as tolerated SUBJECTIVE: Overall achy. Low back and upper back. (B) hands have been numb lately too. The Hammond Palsy he has is causing him issues as well. Pain: OBJECTIVE MEASURES WITH LEVEL OF FUNCTION: TREATMENT: Therapeutic Exercise: 2: supine clams green x 10 3: bridge x 10 4: LTR x 10 5: sahrmans #2 2x10 6: curl ups 2x10 7: rower 2 plates 2x10 8: straight arm pul downs 2x10 5 plates 9: paloff press plum 10x3" 10: discussed bells palsy and that it usually clears up on its own in 6 months. Ganve smiling, squinting, exercises to do at home to see if they help. Discussed that could hui at speech therapy for treatment if he wants Skilled Intervention: Patient was educated in proper exercise technique and purpose for exercises. Reviewed and educated patient on additions/changes for home exercise program as above (*) Skilled judgment was provided in selection of appropriate interventions. Provided written instruction for home exercise program to facilitate proper performance and compliance. Billing: Carisa: Therapeutic Exercise ([id number]): 1:1 time: 40 minutes (3 units: 38-52 mins) Total time / Length of visit: 40 minutes Della Hernandez, PT ----- Normal [facility] MRI LUMBAR SPINE WO IVCONon 02-28-2020 MRI LUMBAR SPINE WO IVCON Final Report DATE OF EXAM: Feb 28 2020 1:32PM AWM 0303 - MRI LUMBAR SPINE WO IVCON / PROCEDURE REASON: M54.42, G89.29 Physician Interpretation EXAMINATION: MRI LUMBAR SPINE WO IVCON CLINICAL HISTORY: 8 month history of low back pain. History of prior laminectomy. TECHNIQUE: Routine lumbosacral spine MR protocol without gadolinium. MQ: [id number] COMPARISON: None. RESULT: Counting reference: Lumbosacral junction. For the purposes of this report, L4-5 is considered the level of the iliac crest and assume there are 5 lumbar-type vertebrae. Anatomic variant: None. Alignment: Alignment is anatomic. Postoperative: Status post L5 laminectomy and partial resection of the L4 spinous process. Bone marrow signal/fracture: No evidence of pathologic marrow infiltration. No evidence of prior fracture. Type II discogenic endplate changes anteriorly involving the T11 and T12 endplates. Conus: The conus is within normal limits of signal intensity and morphology. The conus terminates at T12-L1. Paraspinal soft tissues: Cystic renal lesion in the anterior right kidney. Lower thoracic spine: Visualized lower thoracic canal and foramina are patent. T12-L1: Canal and foramina are patent. L1-L2: Canal and foramina are patent. L2-L3: Canal and foramina are patent L3-L4: Spinal canal is patent. Disc bulge and mild facet arthropathy with mild right foraminal stenosis. Left foramen is patent. L4-L5: Spinal canal is patent status post dorsal decompression. Endplate changes and facet arthropathy with mild bilateral foraminal stenosis. L5-S1: Spinal canal is patent status post dorsal decompression. Hypertrophic endplate changes and facet arthropathy with mild bilateral foraminal stenosis. Sacrum and iliac wings: Mild degenerative changes of the visualized sacroiliac joints. Patchy fatty marrow in the left sacral ala. IMPRESSION: 1. No high-grade spinal canal stenosis. Mild foraminal stenosis as described. 2. Postsurgical changes of L5 laminectomy and partial resection of the L4 spinous process. Anatomic Thoracic/Lumbar Variant: None. L4-5 is considered the level of the iliac crest and assume there are 5 lumbar-type vertebrae. 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[facility] Transcribe Date/Time: Feb 28 2020 3:14P Dictated by : RASHEED YODER MD This examination was interpreted and the report reviewed and electronically signed by: RASHEED YODER MD on Feb 28 2020 3:23PM EST Normal [facility] CNTHERAPYon 02-26-2020 CNTHERAPY OT/PT/Speech Visit (AKPTB) ----- AGA ADAN ([id number]) 1965 M Date Time Provider Department 02/26/20 9:15 AM DELLA HERNANDEZ (PT) VIK Date Time Provider Department Center 02/26/2020 9:15 AM [id number], MICHAEL *AKPTB [facility] Reason for Visit: PT Eval [747] Primary Visit Diagnosis:Chronic bilateral low back pain with bilateral sciatica [M54.42, M54.41, G89.29] Allergies As of Date: 02/26/2020 (No Known Allergies) Date Reviewed: 02/14/2020 Reviewed by: Joseph Mooney - Fully Assessed Prescriptions as of 02/26/2020 Sig: GABAPENTIN 300 MG CAPSULE TAKE 1 CAPSULE BY MOUTH AT 3P* PROLIA 60 MG/ML SUBCUTANEOUS * Inject 1 mL subcutaneously on* ZOLEDRONIC ACID 5 MG/100 ML I* Inject 100 mL intravenously o* METFORMIN ORAL Take 1,000 mg by mouth twice * ASPIRIN 81 MG TABLET,DELAYED * Take 1 tablet by mouth twice * GABAPENTIN 300 MG CAPSULE Take 1 capsule by mouth daily* VERAPAMIL 40 MG TABLET Take 40 mg by mouth three abigail* METHYLPREDNISOLONE 4 MG TABLE* Take 1 tablet by mouth as dir* VITAMIN B COMPLEX CAPSULE Take 1 capsule by mouth once * MULTIVITAMIN CAPSULE Take 1 capsule by mouth once * ASCORBIC ACID (VITAMIN C) 1,0* Take 1,000 mg by mouth once d* JOAN (ZINGIBER OFFICINALIS)* Take by mouth. 2 pills daily BUPROPION XL 150 MG TAB once daily. FLUTICASONE PROPIONATE 50 MCG* 2 Sprays once daily. VIIBRYD 10 MG TABLET daily with breakfast. HYDROCORTISONE 2.5 % TOPICAL * 1 Applicator by RECTAL route * Patient taking differently: 1 Applicator by RECTAL route * QUETIAPINE 50 MG TABLET daily at bedtime. 2 pills at * ONDANSETRON HCL 4 MG TABLET every 8 hours as needed. ATENOLOL 50 MG TABLET once daily. QVAR 40 MCG/ACTUATION METERED* 2 Puffs as needed. GEMFIBROZIL 600 MG TABLET twice daily. OMEPRAZOLE 40 MG CAPSULE,EBONIE* Take 40 mg by mouth once willi* Progress Notes: Della Hernandez, PT, PT 02/26/2020 10:42 AM Signed Episode Visit Count: 1 Therapist That Will Oversee The Plan Of Care: Katina Start of Care Date: 02/26/20 Plan of Care Certification Date: 02/26/20 Next Certification Due Date: 05/26/20 Patient Identified by Name and Date of : Yes REHABILITATION AND SPORTS THERAPY PHYSICAL THERAPY EVALUATION PLAN OF CARE: Assessment: Aga Adan presents with the chief complaint of back pain that radiates into (B) hips. He presents with impairments of decreased strength and decreased flexibility. He may benefit from skilled therapy services to improve core strength and the ability to function with decreased pain. Prognosis: Fair Fair due to: clinical presentation;multiple co- morbidities;chronic nature of impairments Goals for Episode of Care: created on 02/26/20 through 04/26/20 [place] in home exercise program. Patient will decrease pain rating by 2 points to meet minimal clinical important difference for numeric pain rating scale. Patient will demonstrate increase in hips and core by one full MMT grade Perform standing activities with decreased report of symptoms/pain in 4-6 weeks. 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 The above goals and plan of care were discussed and agreed upon by patient/family. SUBJECTIVE: Aga Adan is a 54 year old male seen today for back pain that radiates down into the hips. Had a laminectomy in 2017. Also has a (L) GIANNA in 2017. 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 Been wearing a walking boot since last year. 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 5 points is clinically meaningfully difference Percentiles provide an indication of how the patient's score ranks in relation to the general population. Higher percentile rankings indicate better function/quality of life. 50th percentile is the average of the general population and indicates half of respondents had a worse score. T-scores: mean of general population = 50. 5 points is clinically meaningfully difference Percentiles provide an indication of how the patient's score ranks in relation to the general population. Higher percentile rankings indicate better function/quality of life (more content not included)... Normal [facility] Hemoglobin AND Hematocriton 02-21-2020 Hematocrit (Bld) [Volume fraction] 27.4 % Low 40.0-52.0 [facility] Comment on above: Performed By: #### M G3, HEMDF, LIPA4, CMP3 #### [facility] [address] [place] [address] Hemoglobin (Bld) [Mass/Vol] 8.3 g/dL Low 13.0-18.0 [facility] Comment on above: Performed By: #### M G3, HEMDF, LIPA4, CMP3 #### [facility] [address] [place] [address] Hemoglobin and Hematocrit, B lood, Post Transfusionon 02-21-2020 Hematocrit (Bld) [Volume fraction] 27.4 % Low 40 - 52 % [place], [place] Hemoglobin (Bld) [Mass/Vol] 8.3 g/dL Low 13 - 18 g/dL [place] Interpretation and review of laboratory results Abnormal [place], [place] Test Performed by [facility], [address] [place] [address] [place], [place] Leukodepleted Red Cellson Leukodepleted Red Cells Leukodepleted Red Cells: [id number] transfused 02/20/20 23:24 SST Unit Blood Type: A Unit Blood Rh: POS Blood Product Code: AS1 Unit Number: [id number] Unit Status: transfused Barcoded Unit Number: =[id number] Barcoded Product Code: = Barcoded ABO/Rh: =%6200 Unit Expiration: Unit Volume Transfused: 300 Unit Transfusion Start Date/Time: Normal [facility] Comment on above: Performed By: #### M G3, HEMDF, LIPA4, CMP3 #### [facility] [address] [place] [address] TS GELon 02-21-2020 TS GEL ABO Group: A Rh, Gel: POS Antibody Screen Gel: NEG Normal [facility] Comment on above: Performed By: #### M G3, HEMDF, LIPA4, CMP3 #### [facility] [address] [place] [address] Basic Metabolic Panelon 01-24 Calcium [Mass/Vol] 9.1 mg/dL Normal 8.4-10.4 [facility] Comment on above: Performed By: #### M G3, HEMDF, LIPA4, CMP3 #### [facility] [address] [place] [address] Glucose [Mass/Vol] 118 mg/dL High 70-100 [facility] Comment on above: Performed By: #### M G3, HEMDF, LIPA4, CMP3 #### [facility] [address] [place] [address] Anion Gap 11 Normal [facility] Comment on above: Performed By: #### M G3, HEMDF, LIPA4, CMP3 #### [facility] [address] [place] [address] CO2 [Moles/Vol] 23 mmol/L Normal 22-30 [facility] Comment on above: Performed By: #### M G3, HEMDF, LIPA4, CMP3 #### [facility] [address] [place] [address] Creatinine [Mass/Vol] 0.71 mg/dL Normal 0.52-1.25 [facility] Comment on above: Performed By: #### M G3, HEMDF, LIPA4, CMP3 #### [facility] [address] [place] [address] eGFR OTHER > 90.0 Normal >60 [facility] Comment on above: Result Comment: KDIG O guidelines provide the following GFR categories: Stage GFR(ml/min/1.73 m2) Terms G1 >=90 Normal or high G2 60-89 Mildly decreased* G3a 45-59 Mildly to moderately decreased G3b 30-44 Moderately to severely decreased G4 15-29 Severely decreased G5 <15 Kidney failure *Relative to young adult level. In the absence of evidence of kidney damage, neither GFR category G1 nor G2 fulfill the criteria for CKD. The CKD-EPI equation is validated in individuals 18 years of age and older. Currently the best equation for estimating glomerular filtration rate (GFR) from serum creatinine in children is the Bedside Cuevas equation. It is less accurate in patients with extremes of muscle mass, restriction of dietary protein, ingestion of creatine, extra-renal metabolism of creatinine, or treatment with medications that affect renal tubular creatinine secretion. Performed By: #### Perez G3, HEMDF, LIPA4, CMP3 #### [facility] [address] [place] [address] GFR/1.73 sq M.predicted among blacks MDRD (S/P/Bld) [Vol rate/Area] mL/min/{1.73_m2} Normal >60 [facility] Comment on above: Performed By: #### Perez G3, HEMDF, LIPA4, CMP3 #### [facility] [address] [place] [address] Urea nitrogen [Mass/Vol] 10 mg/dL Normal 7-20 [facility] Comment on above: Performed By: #### Perez G3, HEMDF, LIPA4, CMP3 #### [facility] [address] [place] [address] Chloride [Moles/Vol] 100 mmol/L Normal 98-107 [facility] Comment on above: Performed By: #### Perez G3, HEMDF, LIPA4, CMP3 #### [facility] [address] [place] [address] Potassium [Moles/Vol] 4.3 mmol/L Normal 3.5-5.1 [facility] Comment on above: Performed By: #### Perez G3, HEMDF, LIPA4, CMP3 #### [facility] [address] [place] [address] Sodium [Moles/Vol] 134 mmol/L Low 135-145 [facility] Comment on above: Performed By: #### Perez G3, HEMDF, LIPA4, CMP3 #### [facility] [address] [place] [address] Anion gap [Moles/Vol] 11 mmol/L [facility], [place] Calcium [Mass/Vol] 9.1 mg/dL 8.4 - 10. 4 mg/dL [place] Chloride [Moles/Vol] 100 mmol/L 98 - 10 7 mmol/L [place] CO2 [Moles/Vol] 23 mmol/L 22 - 30 mmol/L [place] Creatinine [Mass/Vol] 0.71 mg/dL 0.52 - 1.25 mg/dL [place] EGFR IF NonAfrican Israeli >90.0 >60 mL/min [place] Comment on above: KDIGO guidelines pro vide the following GFR categories: Stage GFR(ml/min/1.73 m2) Terms G1 >=90 Normal or high G2 60-89 Mildly decreased* G3a 45-59 Mildly to moderately decreased G3b 30-44 Moderately to severely decreased G4 15-29 Severely decreased G5 <15 Kidney failure *Relative to young adult level. In the absence of evidence of kidney damage, neither GFR category G1 nor G2 fulfill the criteria for CKD. The CKD-EPI equation is validated in individuals 18 years of age and older. Currently the best equation for estimating glomerular filtration rate (GFR) from serum creatinine in children is the Bedside Cuevas equation. It is less accurate in patients with extremes of muscle mass, restriction of dietary protein, ingestion of creatine, extra-renal metabolism of creatinine, or treatment with medications that affect renal tubular creatinine secretion. GFR/1.73 sq M predicted among blacks MDRD (S/P/Bld) [Vol rate/Area] mL/min/{1.73_m2} >60 mL/min [place] Glucose [Mass/Vol] 118 mg/dL High 70 - 100 mg/dL [place] Interpretation and review of laboratory results Abnormal [place] Potassium [Moles/Vol] 4.3 mmol/L 3.5 - 5.1 mmol/L [place] Sodium [Moles/Vol] 134 mmol/L Low 135 - 145 mmol/L [place] Urea nitrogen [Mass/Vol] 10 mg/dL 7 - 20 mg/dL [place] Test Performed by [facility], [address], [place], [place] [address] [place], [place] CBC Auto Differentialon -2 Absolute Baso # 0.0 10*3/uL 0 - 0.2 10*3/uL [place] Absolute Neut # 2.1 10*3/uL 1.8 - 7 10*3/uL [place] Basophils/100 WBC (Bld) 1.0 % 0 - 2 % [place] Eosinophils (Bld) [#/Vol] 0.2 10*3/uL 0 - 0.5 10*3/uL [place] Eosinophils/100 WBC (Bld) 4.6 % 1 - 6 % [place] Erythrocyte distribution width (RBC) [Ratio] 19.1 % High 11.5 - 14.5 % [place] Granulocytes/100 WBC (Bld) 59.6 % 40 - 80 % [place] Hematocrit (Bld) [Volume fraction] 22.2 % Low 40 - 52 % [place] Hemoglobin (Bld) [Mass/Vol] 6.8 g/dL Critically low 13 - 18 g/dL [place] Interpretation and review of laboratory results Abnormal [place] Lymphocytes (Bld) [#/Vol] 0.9 10*3/uL Low 1 - 4.3 10*3/uL [place] Lymphocytes/100 WBC (Bld) 24.5 % 20 - 40 % [place] MCH (RBC) [Entitic mass] 20.2 pg Low 26 - 34 pg [place] MCHC (RBC) [Mass/Vol] 30.6 % Low 32 - 36 % [place] MCV (RBC) [Entitic vol] 66.1 fL Low 80 - 98 fL [place] Monocytes (Bld) [#/Vol] 0.4 10*3/uL 0 - 0.8 10*3/uL [place] Monocytes/100 WBC (Bld) 10.3 % High 2 - 10 % [place] Platelet mean volume (Bld) [Entitic vol] 6.8 fL Low 7.4 - 10.4 fL [place] Platelets (Bld) [#/Vol] 224 10*3/uL 140 - 440 10*3/uL [place] RBC (Bld) [#/Vol] 3.36 10*6/uL Low 4.4 - 5.9 10*6/uL [place] WBC (Bld) [#/Vol] 3.6 10*3/uL 3.6 - 10.7 10*3/uL [place] Test Performed by [facility], [address] [place], [place], [place] [address] [place] CT HEAD WO CONTRASTon 2019 [facility] Incoming Radiology Results From [facility] - 02/20/2020 9:20 PM EDT Patient Name: AGA ADAN ---CT--- Exam Date/Time 02/20/2020 21:09:[address] Head or Brain w/o Contrast Ordering Physician MD ORIN, JOSÉ MIGUEL Sims Accession Number [id number] CPT4 Codes 96374 () Reason For Exam L facial droop Report CT HEAD: CLINICAL INDICATION: Facial droop with strokelike symptoms TECHNIQUE: Transaxial CT sequence performed through the head with 3 mm reconstruction. Sagittal and Coronal reconstruction images included. Dose reduction employed with automated exposure control. COMPARISON: MRI from 03/09/2019 FINDINGS: Ventricles and Extra-axial spaces: Normal in size and morphology for the patient's age. No abnormal extracerebral collection identified. Cerebral and cerebellar parenchyma: No regions of abnormal increased or decreased attenuation, mass lesion or evidence of acute infarct. Hemorrhage: None Brainstem: Normal Visualized Paranasal sinuses: Left maxillary sinus mucosal thickening is noted. Mastoid air cells: Normal Visualized Orbits: Normal Calvarium and skull base: Normal IMPRESSION: No acute intracranial abnormality. Report Dictated on Workstation: [id number] --- Final --- Dictating Physician: MD PA JEFFREY Signed Date and Time: 02/20/2020 9:18 pm Signed by: MD PA JEFFREY Transcribed Date and Time: 02/20/2020 9:19 [place] Patient Name: AGA COFFEY ---CT--- Exam Date/Time 02/20/2020 21:09:[address] Head or Brain w/o Contrast Ordering Physician MD SR NICHOLAS E. Accession Number [id number] CPT4 Codes 95888 () Reason For Exam L facial droop Report CT HEAD: CLINICAL INDICATION: Facial droop with strokelike symptoms TECHNIQUE: Transaxial CT sequence performed through the head with 3 mm reconstruction. Sagittal and Coronal reconstruction images included. Dose reduction employed with automated exposure control. COMPARISON: MRI from 03/09/2019 FINDINGS: Ventricles and Extra-axial spaces: Normal in size and morphology for the patient's age. No abnormal extracerebral collection identified. Cerebral and cerebellar parenchyma: No regions of abnormal increased or decreased attenuation, mass lesion or evidence of acute infarct. Hemorrhage: None Brainstem: Normal Visualized Paranasal sinuses: Left maxillary sinus mucosal thickening is noted. Mastoid air cells: Normal Visualized Orbits: Normal Calvarium and skull base: Normal IMPRESSION: No acute intracranial abnormality. Report Dictated on Workstation: [id number] --- Final --- Dictating Physician: MD PA JEFFREY Signed Date and Time: 02/20/2020 9:18 pm Signed by: MD PA JEFFREY Transcribed Date and Time: 02/20/2020 9:19 [place] Head or Brain w/o Nelsy wolfe 02-20-2020 CT Head or Brain w/o Contrast Patient Name: AGA ADAN CT Exam Date/Time 02/20/2020 21:09:[address] Head or Brain w/o Contrast Ordering Physician MD SR NICHOLAS E. Accession Number [id number] CPT4 Codes 21234 () Reason For Exam L facial droop Report CT HEAD: CLINICAL INDICATION: Facial droop with strokelike symptoms TECHNIQUE: Transaxial CT sequence performed through the head with 3 mm reconstruction. Sagittal and Coronal reconstruction images included. Dose reduction employed with automated exposure control. COMPARISON: MRI from 03/09/2019 FINDINGS: Ventricles and Extra-axial spaces: Normal in size and morphology for the patient's age. No abnormal extracerebral collection identified. Cerebral and cerebellar parenchyma: No regions of abnormal increased or decreased attenuation, mass lesion or evidence of acute infarct. Hemorrhage: None Brainstem: Normal Visualized Paranasal sinuses: Left maxillary sinus mucosal thickening is noted. Mastoid air cells: Normal Visualized Orbits: Normal Calvarium and skull base: Normal IMPRESSION: No acute intracranial abnormality. Report Dictated on Workstation: [id number] Final Dictating Physician: MD PA JEFFREY Signed Date and Time: 02/20/2020 9:18 pm Signed by: MD PA JEFFREY Transcribed Date and Time: 02/20/2020 9:19 Normal [facility] CTA HEAD NECK W WO CONTRASTo n 02-20-2020 Gabriel, [facility] Incoming Radiology Results From [facility] - 02/20/2020 9:51 PM EDT Patient Name: AGA ADAN ---CT--- Exam Date/Time 02/20/2020 21:10:27 EDT Exam CTA Head/Neck w/ + w/o contrast Ordering Physician MD ORIN, JOSÉ MIGUEL Sims Accession Number [id number] CPT4 Codes Q9967 (CT ISOVUE 370MG/[id number] ), 19988 (), 23810 () Reason For Exam L facial droop Report CT ANGIOGRAPHY HEAD AND NECK: CLINICAL INDICATION: Left facial droop and stroke like symptoms TECHNIQUE: Transaxial sequence performed from the upper mediastinum through the skull during dynamic intravenous infusion of 75 mL of nonionic contrast media, injected at a high flow rate following a creative director study. Multiplanar and 3D MIP reconstruction performed concurrently on an independent viewing workstation. Measurement of carotid stenosis is a ratio based on conventional angiographic data from the NASCET trials with the smallest caliber of the internal carotid as the numerator and normal post-stenotic internal carotid caliber as denominator. Dose reduction was employed with automated exposure control. COMPARISON: None. FINDINGS: Exam quality: Limited due to venous contamination. Aortic arch and great vessel origins: Normal. Right common and external carotid: Normal. Right internal carotid: Minimal stenosis near the origin in the range of less than 30 percent. Tortuosity is noted within the loop near the skull base. Left common and external carotid: Normal. Left internal carotid: Minimal stenosis near the origin in the range of less than 30 percent. Tortuosity is noted with a loop near the skull base. Vertebral arteries: Normal. Intracranial arteries: Patent flow is identified throughout the anterior, middle and posterior cerebral arteries. No vascular malformation or aneurysm above 2 mm in caliber is identified. The regions of the anterior and posterior communicating arteries are unremarkable. Neck: There is no evidence for cystic or solid mass within the deep or superficial spaces of the neck. The salivary glands and thyroid are unremarkable. There is no evidence for lymphadenopathy. The airway structures demonstrate no abnormality. The lung apices are unremarkable. Spurring and disc space narrowing is noted C5-C6 and C6-C7. Old right upper rib fractures are noted. Head: The ventricles maintain normal size and morphology for the patient's age. No enhancing or nonenhancing parenchymal lesion is identified throughout the cerebrum or cerebellum. No extracerebral collection is noted. The brainstem is unremarkable. The paranasal sinuses are clear. The mastoid air cells are clear. IMPRESSION: 1. Significant internal carotid artery stenosis 2. Patent vertebral arteries 3. No intracranial arterial abnormality 4. Cervical spondylosis. Report Dictated on Workstation: [id number] --- Final --- Dictating Physician: MD PA JEFFREY Signed Date and Time: 02/20/2020 9:50 pm Signed by: MD PA JEFFREY Transcribed Date and Time: 02/20/2020 9:51 [place] Patient Name: AGA SO ---CT--- Exam Date/Time 02/20/2020 21:10:27 EDT Exam CTA Head/Neck w/ + w/o contrast Ordering Physician MD SR NICHOLAS E. Accession Number [id number] CPT4 Codes Q9967 (CT ISOVUE 370MG/[id number]&[id number] ), 89183 (), 57706 () Reason For Exam L facial droop Report CT ANGIOGRAPHY HEAD AND NECK: CLINICAL INDICATION: Left facial droop and stroke like symptoms TECHNIQUE: Transaxial sequence performed from the upper mediastinum through the skull during dynamic intravenous infusion of 75 mL of nonionic contrast media, injected at a high flow rate following a creative director study. Multiplanar and 3D MIP reconstruction performed concurrently on an independent viewing workstation. Measurement of carotid stenosis is a ratio based on conventional angiographic data from the NASCET trials with the smallest caliber of the internal carotid as the numerator and normal post-stenotic internal carotid caliber as denominator. Dose reduction was employed with automated exposure control. COMPARISON: None. FINDINGS: Exam quality: Limited due to venous contamination. Aortic arch and great vessel origins: Normal. Right common and external carotid: Normal. Right internal carotid: Minimal stenosis near the origin in the range of less than 30 percent. Tortuosity is noted within the loop near the skull base. Left common and external carotid: Normal. Left internal carotid: Minimal stenosis near the origin in the range of less than 30 percent. Tortuosity is noted with a loop near the skull base. Vertebral arteries: Normal. Intracranial arteries: Patent flow is identified throughout the anterior, middle and posterior cerebral arteries. No vascular malformation or aneurysm above 2 mm in caliber is identified. The regions of the anterior and posterior communicating arteries are unremarkable. Neck: There is no evidence for cystic or solid mass within the deep or superficial spaces of the neck. The salivary glands and thyroid are unremarkable. There is no evidence for lymphadenopathy. The airway structures demonstrate no abnormality. The lung apices are unremarkable. Spurring and disc space narrowing is noted C5-C6 and C6-C7. Old right upper rib fractures are noted. Head: The ventricles maintain normal size and morphology for the patient's age. No enhancing or nonenhancing parenchymal lesion is identified throughout the cerebrum or cerebellum. No extracerebral collection is noted. The brainstem is unremarkable. The paranasal sinuses are clear. The mastoid air cells are clear. IMPRESSION: 1. Significant internal carotid artery stenosis 2. Patent vertebral arteries 3. No intracranial arterial abnormality 4. Cervical spondylosis. Report Dictated on Workstation: [id number] --- Final --- Dictating Physician: MD PA JEFFREY Signed Date and Time: 02/20/2020 9:50 pm Signed by: MD PA JEFFREY Transcribed Date and Time: 02/20/2020 9:51 [place] CTA Head/Neck w/ + w/o contr pb 02-20-2020 CTA Head/Neck w/ + w/o contrast Patient Name: AGA ADAN CT Exam Date/Time 02/20/2020 21:10:27 EDT Exam CTA Head/Neck w/ + w/o contrast Ordering Physician MD SR NICHOLAS E. Accession Number [id number] CPT4 Codes Q9967 (CT ISOVUE 370MG/[id number] MLand1), 81430 (), 88579 () Reason For Exam L facial droop Report CT ANGIOGRAPHY HEAD AND NECK: CLINICAL INDICATION: Left facial droop and stroke like symptoms TECHNIQUE: Transaxial sequence performed from the upper mediastinum through the skull during dynamic intravenous infusion of 75 mL of nonionic contrast media, injected at a high flow rate following a creative director study. Multiplanar and 3D MIP reconstruction performed concurrently on an independent viewing workstation. Measurement of carotid stenosis is a ratio based on conventional angiographic data from the NASCET trials with the smallest caliber of the internal carotid as the numerator and normal post-stenotic internal carotid caliber as denominator. Dose reduction was employed with automated exposure control. COMPARISON: None. FINDINGS: Exam quality: Limited due to venous contamination. Aortic arch and great vessel origins: Normal. Right common and external carotid: Normal. Right internal carotid: Minimal stenosis near the origin in the range of less than 30 percent. Tortuosity is noted within the loop near the skull base. Left common and external carotid: Normal. Left internal carotid: Minimal stenosis near the origin in the range of less than 30 percent. Tortuosity is noted with a loop near the skull base. Vertebral arteries: Normal. Intracranial arteries: Patent flow is identified throughout the anterior, middle and posterior cerebral arteries. No vascular malformation or aneurysm above 2 mm in caliber is identified. The regions of the anterior and posterior communicating arteries are unremarkable. Neck: There is no evidence for cystic or solid mass within the deep or superficial spaces of the neck. The salivary glands and thyroid are unremarkable. There is no evidence for lymphadenopathy. The airway structures demonstrate no abnormality. The lung apices are unremarkable. Spurring and disc space narrowing is noted C5-C6 and C6-C7. Old right upper rib fractures are noted. Head: The ventricles maintain normal size and morphology for the patient's age. No enhancing or nonenhancing parenchymal lesion is identified throughout the cerebrum or cerebellum. No extracerebral collection is noted. The brainstem is unremarkable. The paranasal sinuses are clear. The mastoid air cells are clear. IMPRESSION: 1. Significant internal carotid artery stenosis 2. Patent vertebral arteries 3. No intracranial arterial abnormality 4. Cervical spondylosis. Report Dictated on Workstation: [id number] Final Dictating Physician: MD PA JEFFREY Signed Date and Time: 02/20/2020 9:50 pm Signed by: MD PA JEFFREY Transcribed Date and Time: 02/20/2020 9:51 Normal [facility] Hemogram w/ Autodiffon 02-19 Abs Baso Cnt 0.0 10*3/uL Normal 0.0-0.2 [facility] Comment on above: Performed By: #### M G3, HEMDF, LIPA4, CMP3 #### [facility] [address] [place] [address] Abs Neutrophile Cnt 2.1 10*3/uL Normal 1.8-7.0 [facility] Comment on above: Performed By: #### M G3, HEMDF, LIPA4, CMP3 #### [facility] [address] [place] [address] Basophils/100 WBC (Bld) 1.0 % Normal 0.0-2.0 [facility] Comment on above: Performed By: #### M G3, HEMDF, LIPA4, CMP3 #### [facility] [address] [place] [address] Eosinophils (Bld) [#/Vol] 0.2 10*3/uL Normal 0.0-0.5 [facility] Comment on above: Performed By: #### M G3, HEMDF, LIPA4, CMP3 #### [facility] [address] [place] [address] Eosinophils/100 WBC (Bld) 4.6 % Normal 1.0-6.0 [facility] Comment on above: Performed By: #### M G3, HEMDF, LIPA4, CMP3 #### [facility] [address] [place] [address] Erythrocyte distribution width (RBC) [Ratio] 19.1 % High 11.5-14.5 [facility] Comment on above: Performed By: #### M G3, HEMDF, LIPA4, CMP3 #### [facility] [address] [place] [address] Granulocytes/100 WBC (Bld) 59.6 % Normal 40.0-80.0 [facility] Comment on above: Performed By: #### M G3, HEMDF, LIPA4, CMP3 #### [facility] [address] [place] [address] Hematocrit (Bld) [Volume fraction] 22.2 % Low 40.0-52.0 [facility] Comment on above: Performed By: #### M G3, HEMDF, LIPA4, CMP3 #### [facility] [address] [place] [address] Hemoglobin (Bld) [Mass/Vol] 6.8 g/dL Critically low 13.0-18.0 [facility] Comment on above: Performed By: #### M G3, HEMDF, LIPA4, CMP3 #### [facility] [address] [place] [address] Lymphocytes (Bld) [#/Vol] 0.9 10*3/uL Low 1.0-4.3 [facility] Comment on above: Performed By: #### M G3, HEMDF, LIPA4, CMP3 #### [facility] [address] [place] [address] Lymphocytes/100 WBC (Bld) 24.5 % Normal 20.0-40.0 [facility] Comment on above: Performed By: #### M G3, HEMDF, LIPA4, CMP3 #### [facility] [address] [place] [address] MCH (RBC) [Entitic mass] 20.2 pg Low 26.0-34.0 [facility] Comment on above: Performed By: #### M G3, HEMDF, LIPA4, CMP3 #### [facility] [address] [place] [address] MCHC 30.6 % Low 32.0-36.0 [facility] Comment on above: Performed By: #### M G3, HEMDF, LIPA4, CMP3 #### [facility] [address] [place] [address] MCV (RBC) [Entitic vol] 66.1 fL Low 80.0-98.0 [facility] Comment on above: Performed By: #### Perez G3, HEMDF, LIPA4, CMP3 #### [facility] [address] [place] [address] Monocytes (Bld) [#/Vol] 0.4 10*3/uL Normal 0.0-0.8 [facility] Comment on above: Performed By: #### Perez G3, HEMDF, LIPA4, CMP3 #### [facility] [address] [place] [address] Monocytes/100 WBC (Bld) 10.3 % High 2.0-10.0 [facility] Comment on above: Performed By: #### M G3, HEMDF, LIPA4, CMP3 #### [facility] [address] [place] [address] Platelet mean volume (Bld) [Entitic vol] 6.8 fL Low 7.4-10.4 [facility] Comment on above: Performed By: #### Perez G3, HEMDF, LIPA4, CMP3 #### [facility] [address] [place] [address] Platelets (Bld) [#/Vol] 224 10*3/uL Normal 140-440 [facility] Comment on above: Performed By: #### Perez G3, HEMDF, LIPA4, CMP3 #### [facility] [address] [place] [address] RBC (Bld) [#/Vol] 3.36 10*6/uL Low 4.40-5.90 [facility] Comment on above: Performed By: #### M G3, HEMDF, LIPA4, CMP3 #### [facility] [address] [place] [address] WBC (Bld) [#/Vol] 3.6 10*3/uL Normal 3.6-10.7 [facility] Comment on above: Performed By: #### M G3, HEMDF, LIPA4, CMP3 #### [facility] [address] [place] [address] Metabolic Panelon 02-20-2020 Sodium [Moles/Vol] Slight [facility] [place], [place] RBC MORPHOLOGYon 02-20-2020 Anisocytosis Ql (Bld) Slight [facility], [place] RBC morphology finding Nom (Bld) ABNORMAL [facility] [place], [place] Sodium [Moles/Vol] Moderate [place] Test Performed by [facility], [address] [place] [address] [facility] [place], [place] RBC Morphologyon 02-20-2020 Anisocytosis Ql (Bld) Slight Normal [facility] Comment on above: Performed By: #### M G3, HEMDF, LIPA4, CMP3 #### [facility] [address] [place] [address] Elliptocytes Slight Normal [facility] Comment on above: Performed By: #### M G3, HEMDF, LIPA4, CMP3 #### [facility] [address] [place] [address] Hypochromia Moderate Normal [facility] Comment on above: Performed By: #### M G3, HEMDF, LIPA4, CMP3 #### [facility] [address] [place] [address] Microcytosis Slight Normal [facility] Comment on above: Performed By: #### M G3, HEMDF, LIPA4, CMP3 #### [facility] [address] [place] [address] Poikilocytosis Slight Normal [facility] Comment on above: Performed By: #### M G3, HEMDF, LIPA4, CMP3 #### [facility] [address] [place] [address] RBC morphology finding Nom (Bld) ABNORMAL Normal [facility] Comment on above: Performed By: #### M G3, HEMDF, LIPA4, CMP3 #### [facility] [address] [place] [address] Stomatocytes Slight Normal [facility] Comment on above: Performed By: #### M G3, HEMDF, LIPA4, CMP3 #### [facility] [address] [place] [address] Tear Drop Forms Slight Normal [facility] Comment on above: Performed By: #### M G3, HEMDF, LIPA4, CMP3 #### [facility] [address] [place] [address] TYPE AND SCREENon 02-20-2020 Sodium [Moles/Vol] Positive [facility] [place], [place] Sodium [Moles/Vol] A [facility] [place], [place] Sodium [Moles/Vol] Negative [facility] [place] Test Performed by [facility], [address] [place], [place], [place] [address] [facility] [place], [place] Nicotine and Cotinine, Serum on 02-16-2020 Nicotine and Cotinine, Serum SEE BELOW Normal [facility] Comment on above: Result Comment: Lam isaac <2 <2 ng/mL Cotinine 226 H <2 ng/mL Nornicotine Absent AB (NOTE) WHILE USING A TOBACCO PRODUCT: Peak Nicotine concentration: 30 ng/mL to 50 ng/mL Peak Cotinine concentration: 200 ng/mL to 800 ng/mL (Higher Cotinine values may be seen in subjects with high cytochrome P450 2D6 activity.) TOBACCO USER AFTER TWO WKS OF COMPLETE ABSTINENCE: Nicotine concentration: <2.0 ng/mL Cotinine concentration: <2.0 ng/mL NONTOBACCO USER WITH PASSIVE EXPOSURE: Nicotine concentration: <2.0 ng/mL Cotinine concentration: <8.0 ng/mL NONTOBACCO USER WITH NO PASSIVE EXPOSURE: Nicotine concentration: <2.0 ng/mL Cotinine concentration: <2.0 ng/mL The presence of nornicotine indicates tobacco or nicotine exposure while its absence does not rule out the exposure. To discriminate if a patient on nicotine replacement therapy is actively using a tobacco product, the presence of anabasine in URINE indicates recent tobacco use. Anabasine is a tobacco alkaloid not present in nicotine replacement products. This test was developed and its performance characteristics determined by [facility]'s [facility] [place]. It has not been cleared or approved by the FDA. [facility] is authorized under CLIA to perform high-complexity testing. This test is used for clinical purposes. It should not be regarded as investigational or for research. Performing Laboratory: [facility] [employer] [address] [place] [address] Performed By: #### N ICSX #### [place] [id number] CNOVon 02-12-2020 CNOV Office Visit ([id number] ) ----- AGA ADAN ([id number]) 1965 M Date Time Provider Department 02/12/20 9:30 AM JOSEPH MOONEY [id number] During your visit today, we recorded the following information about you: Respiration Weight Height 18/minute 90.7 kg 1.702 m Joseph Mooney DO 02/14/2020 1:50 PM Signed HPI: gAa Adan is a 54 year old male who presents today with back and left hip issues. Can't stand for more than a few minutes without intense pain in back and weakness in legs. Intense pain and struggles to do any ADL's. Many orthopedic issues in play currently leading to terrible overall dysfunction but his biggest concern is the back pain and leg weakness. S/P left hip GIANNA in 2018. Lumbar laminectomy in 06/[address] Zamarripa. Fall in 04/2019 with pelvis fracture and struggeled ever since. 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 PAST MEDICAL HISTORY Diagnosis Date - Acquired valgus deformity of foot, right - Anemia - Diabetes (HCC) - GERD (gastroesophageal reflux disease) - HTN (hypertension) - Hyperlipidemia - Myocardial infarct (HCC) 2006 - Pancreatic cyst 06/08/2019 - Pancreatitis - Post-traumatic arthritis of ankle, right - Shingles 10/28/2018 PAST SURGICAL HISTORY Procedure Laterality Date - CHOLECYSTECTOMY 2017 - COLONOSCOPY 07/15/2017 external grade 1 hemmorhoids - EGD 08/03/2017 bile gastric fluid, neg H pylori - HEART CATHETERIZATION 2016 - HIP SURGERY HX Left 05/2016 GIANNA - KNEE SURGERY HX Right 1983 - PANCREAS 06/08/2019 - PAST SURGICAL HISTORY OF 06/2018 BACK - PAST SURGICAL HISTORY OF Right 12/07/2018 R Ankle - SHOULDER SURGERY HX Bilateral 2009 RCR Social History Tobacco Use - Smoking status: Former Smoker Types: Cigars - Smokeless tobacco: Current User Types: Chew - Tobacco comment: 3 cigars/week Substance Use Topics - Alcohol use: Yes Comment: daily 3 beers - Drug use: No Current Outpatient Medications Medication Sig - gabapentin (NEURONTIN) 300 mg capsule TAKE 1 CAPSULE BY MOUTH AT 3PM AND 1 CAPSULE BY MOUTH AT BEDTIME - denosumab (PROLIA) 60 mg/mL Inject 1 mL subcutaneously once every 6 months. - metformin HCl (METFORMIN ORAL) Take 1,000 mg by mouth twice daily. - aspirin, enteric coated (ASPIRIN, ENTERIC COATED) 81 mg EC tablet Take 1 tablet by mouth twice daily for 14 days. - gabapentin (NEURONTIN) 300 mg capsule Take 1 capsule by mouth daily at bedtime for 30 days. - B Complex Vitamins capsule Take 1 capsule by mouth once daily. - Multivitamin capsule Take 1 capsule by mouth once daily. - Ascorbic Acid (VITAMIN C) 1,000 mg tablet Take 1,000 mg by mouth once daily. Takes 2 tablets daily - Joan, Zingiber officinalis, (JOAN EXTRACT) 250 mg cap Take by mouth. 2 pills daily - buPROPion XL (WELLBUTRIN XL) 150 mg 24 hr tablet once daily. - fluticasone (FLONASE) 50 mcg/actuation nasal spray 2 Sprays once daily. - atenolol (TENORMIN) 50 mg tablet once daily. - QVAR 40 mcg/actuation inhaler 2 Puffs as needed. - Omeprazole 40 mg capsule Take 40 mg by mouth once daily. - zoledronic acid (RECLAST) 5 mg/100 mL pgbk PREMIX piggyback Inject 100 mL intravenously one time only for 1 dose. Once only for 1 time - verapamil (CALAN, ISOPTIN) 40 mg tablet Take 40 mg by mouth three times daily. - methylPREDNISolone (MEDROL, TOYA,) 4 mg Dose-Pack Take 1 tablet by mouth as directed. As directed on package - VIIBRYD 10 mg daily with breakfast. - hydrocortisone (ANUSOL-HC) 2.5 % rectal cream 1 Applicator by RECTAL route twice daily. (Patient taking differently: 1 Applicator by RECTAL route as needed. ) - QUEtiapine (SEROQUEL) 50 mg tablet daily at bedtime. 2 pills at bedtime - ondansetron (ZOFRAN) 4 mg tablet every 8 hours as needed. - gemfibrozil (LOPID) 600 mg tablet twice daily. No current facility-administered medications for this visit. ALLERGIES No Known Allergies REVIEW OF SYSTEMS: GENERAL: Well developed, well nourished. No acute distress PAIN: Pain lt hip CARDIOVASCULAR: Negative for chest pain, leg swelling and palpations. MSK: joint pain yes and back pain yes SKIN: Negative for lesions, rash, itching, metal sensitivity NEURO: Numbness/tingling of extremties ENDOCRINE: Diabetes Type 2 yes HEMATOLOGY: asp 81mg Resp 18 Ht 5' 7" (1.70m) Wt 200 lb (90.7kg) BMI 31.32 kg/(m2). EXAM: Examination of the lumbar spine reveals tenderness of para spinal muscles at L5. Pain with straight leg raise of the Left leg. Pain with lumbar flexion and rotation. Weakness with testing of Bilateral leg quadriceps, hamstrings, and hip flexors. Stork testing negative. Sensation altered in left hamstring area. Reflexes weak in left and right patellar tendons. Normal pulses ASSESSMENT: (M54.42, G89.29) Chronic left-sided low (more content not included)... Normal [facility] Alk Phos Bone [place] 020 Alk Phos Bone Spec 11.5 Normal [facility] Comment on above: Result Comment: Refe rence range: 6.5 to 20.1 Unit: ug/L (NOTE) INTERPRETIVE INFORMATION: Bone Specific Alkaline Phosphatase Liver alkaline phosphatase can affect the measurement of bone specific alkaline phosphatase in this assay. Each 100 U/L of liver alkaline phosphatase contributes an additional 2.5 to 5.8 ug/L to the bone specific alkaline phosphatase result. Performed by [facility], [address] [place] [id number] [email or web address], Kenn Small MD, Lab. Director Performing Laboratory: Performed By: #### C BCD1 #### [place] [address] Protein Electrophoresis, Ser umon 10-14-2019 Albumin [Mass/Vol] 4.14 g/dL Normal 3.37-4.23 [facility] Comment on above: Performed By: #### S EPGX #### [place] [id number] Alpha 1 Globulin 0.24 gm/dL Normal 0.18-0.31 [facility] Comment on above: Performed By: #### S EPGX #### [facility] [address] [place] [address] Alpha 2 Globulin 1.00 gm/dL High 0.52-0.97 [facility] Comment on above: Performed By: #### S EPGX #### [facility] [address] [place] [address] Beta Globulin 0.95 gm/dL Normal 0.84-1.36 [facility] Comment on above: Performed By: #### S EPGX #### [facility] [address] [place] [address] Gamma Globulin 0.77 gm/dL Normal 0.70-1.44 [facility] Comment on above: Performed By: #### S EPGX #### [place] [address] Interpretation SEE BELOW Normal [facility] Comment on above: Result Comment: No d efinitive M protein is identified on protein electrophoresis. Performed By: #### S EPGX #### [place] [address] M Ashok Concentratn 0.00 gm/dL Normal 0.00 [facility] Comment on above: Performed By: #### S EPGX #### [place] [address] Protein [Mass/Vol] 7.1 g/dL Normal 6.0-8.4 [facility] Comment on above: Performed By: #### S EPGX #### [place] [address] Protein [Mass/Vol] N/A Normal [facility] Comment on above: Performed By: #### S EPGX #### [place] [address] Staff Review SEE BELOW Normal [facility] Comment on above: Result Comment: Revi ewed by Yessy Wilkinson MD ([id number]) Performing Laboratory: [facility] [address] [place] [address] Performed By: #### S EPGX #### [facility] [address] [place], [place] [address] Protein Electrophoresis, Uri ne Randomon 10-13-2019 Protein (U) [Mass/Vol] SEE BELOW Normal [facility] Comment on above: Result Comment: Prot ein Urine Random 6 0-20 mg/dL Albumin 58.3 % Alpha 1 Globulin 0.8 >0 % Alpha 2 Globulin 16.3 % Beta Globulin 16.9 % Gamma Globulin 7.7 % Interpretation SEE BELOW No definitive M protein is identified on protein electrophoresis. The absence of M protein on urine protein electrophoresis does not entirely exclude the presence of monoclonal gammopathy in urine. Monoclonal protein analysis (immunofixation), a more definitive test to exclude monoclonal gammopathy, may be requested on this specimen if clinically indicated. Staff Review SEE BELOW Reviewed by Yessy Wilkinson MD ([id number]) Performing Laboratory: [place] [address] Performed By: #### U PEX #### [place] [address] Comprehensive Panelon 2019 ALP [Catalytic activity/Vol] 55 U/L Normal 45-117 [facility] Comment on above: Performed By: #### P 14 #### [address] [address] Protein [Mass/Vol] 8.1 g/dL Normal 6.4-8.2 [facility] Comment on above: Performed By: #### P 14 #### [address] [address] Bilirubin [Mass/Vol] 0.3 mg/dL Normal 0.2-1.0 [facility] Comment on above: Result Comment: Use of this assay is not recommended for patients undergoing treatment with eltrombopag due to the potential for falsely elevated results. Performed By: #### P 14 #### [facility] [address] [place], [place] [address] ALT [Catalytic activity/Vol] 56 U/L Normal 12-78 [facility] Comment on above: Performed By: #### P 14 #### [facility] [address] [place], [place] [address] Creatinine [Mass/Vol] 0.69 mg/dL Normal 0.67-1.17 [facility] Comment on above: Result Comment: Use of this assay is not recommended for patients undergoing treatment with phenindione, due to the potential for falsely depressed results. Performed By: #### P 14 #### [facility] [address] [place], [place] [address] AST [Catalytic activity/Vol] 31 U/L Normal 15-37 [facility] Comment on above: Performed By: #### P 14 #### [facility] [address] [place], [place] [address] Anion gap [Moles/Vol] 12 mmol/L Normal 8-16 [facility] Comment on above: Performed By: #### P 14 #### [facility] [address] [place] [address] CO2 [Moles/Vol] 25 mmol/L Normal 21-32 [facility] Comment on above: Performed By: #### P 14 #### [facility] [address] [place], [place] [address] Glucose [Mass/Vol] 153 mg/dL High 70-99 [facility] Comment on above: Performed By: #### P 14 #### [facility] [address] [place], [place] [address] Albumin [Mass/Vol] 4.0 g/dL Normal 3.4-5.0 [facility] Comment on above: Performed By: #### P 14 #### [facility] [address] [place], [place] [address] Calcium [Mass/Vol] 9.5 mg/dL Normal 8.5-10.1 [facility] Comment on above: Performed By: #### P 14 #### [facility] [address] [place], [place] [address] Urea nitrogen [Mass/Vol] 10 mg/dL Normal 7-18 [facility] Comment on above: Performed By: #### P 14 #### [facility] [address] [place], [place] [address] Chloride [Moles/Vol] 102 mmol/L Normal 98-107 [facility] Comment on above: Performed By: #### P 14 #### [facility] [address] [place] [address] Potassium [Moles/Vol] 4.3 mmol/L Normal 3.5-5.1 [facility] Comment on above: Performed By: #### P 14 #### [facility] [address] [place], [place] [address] Sodium [Moles/Vol] 135 mmol/L Low 136-145 [facility] Comment on above: Performed By: #### P 14 #### [facility] [address] [place] [address] Hemogram/Diffon 10-12-2019 Abs Immature Grans 0.03 thou/cmm Normal 0.00-0.05 [facility] Comment on above: Performed By: #### C BCD1 #### [facility] [address] [place] [address] Abs Neut (ANC) 2.19 thou/cmm Normal 1.78-5.38 [facility] Comment on above: Performed By: #### C BCD1 #### [facility] [address] [place] [address] Abs. Baso 0.03 thou/cmm Normal 0.01-0.08 [facility] Comment on above: Performed By: #### C BCD1 #### [facility] [address] [place] [address] Abs. Ashe 0.35 thou/cmm Normal 0.30-0.82 [facility] Comment on above: Performed By: #### C BCD1 #### [facility] [address] [place] [address] Basophils/100 WBC (Bld) 0.9 % Normal [facility] Comment on above: Performed By: #### C BCD1 #### [facility] [address] [place] [address] Eosinophils (Bld) [#/Vol] 0.14 thou/cmm Normal 0.04-0.54 [facility] Comment on above: Performed By: #### C BCD1 #### [facility] [address] [place] [id number] Eosinophils/100 WBC (Bld) 4.1 % Normal [facility] Comment on above: Performed By: #### C BCD1 #### [facility] [address] [place] [address] Erythrocyte distribution width (RBC) [Ratio] 14.9 % High 11.6-14.4 [facility] Comment on above: Performed By: #### C BCD1 #### [facility] [address] [place] [address] Hematocrit (Bld) [Volume fraction] 30.0 % Low 40.1-51.0 [facility] Comment on above: Performed By: #### C BCD1 #### [place] [address] Hemoglobin (Bld) [Mass/Vol] 8.6 g/dL Low 13.7-17.5 [facility] Comment on above: Performed By: #### C BCD1 #### [place] [address] Immature Grans 0.90 % Normal [facility] Comment on above: Performed By: #### C BCD1 #### [place] [address] Lymphocytes (Bld) [#/Vol] 0.67 thou/cmm Low 0.84-2.85 [facility] Comment on above: Performed By: #### C BCD1 #### [place] [address] Lymphocytes/100 WBC (Bld) 19.6 % Normal [facility] Comment on above: Performed By: #### C BCD1 #### [facility] [address] [place] [address] MCH (RBC) [Entitic mass] 22.9 pg Low 25.7-32.2 [facility] Comment on above: Performed By: #### C BCD1 #### [facility] [address] [place] [address] MCHC (RBC) [Mass/Vol] 28.7 % Low 32.3-36.5 [facility] Comment on above: Performed By: #### C BCD1 #### [facility] [address] [place], [place] [address] MCV (RBC) [Entitic vol] 80.0 fL Low 83.2-95.6 [facility] Comment on above: Performed By: #### C BCD1 #### [facility] [address] [place], [place] [address] Monocytes/100 WBC (Bld) 10.3 % Normal [facility] Comment on above: Performed By: #### C BCD1 #### [facility] [address] [place] [address] Platelet mean volume (Bld) [Entitic vol] 10.4 fL Normal 8.7-12.0 [facility] Comment on above: Performed By: #### C BCD1 #### [facility] [address] [place] [address] Platelets (Bld) [#/Vol] 381 thou/cmm High 141-365 [facility] Comment on above: Performed By: #### C BCD1 #### [facility] [address] [place] [address] RBC (Bld) [#/Vol] 3.75 mil/cmm Low 4.63-6.08 [facility] Comment on above: Performed By: #### C BCD1 #### [facility] [address] [place] [address] RDW SD 43.5 fl Normal 36.1-45.8 [facility] Comment on above: Performed By: #### C BCD1 #### [facility] [address] [place], [place] [address] Seg Neutrophil 64.2 % Normal [facility] Comment on above: Performed By: #### C BCD1 #### [facility] [address] [place], [place] [address] WBC (Bld) [#/Vol] 3.41 thou/cmm Low 4.23-9.07 [facility] Comment on above: Performed By: #### C BCD1 #### [facility] [address] [place], [place] [address] MDRD GFRon 10-12-2019 GFR/1.73 sq M predicted among non-blacks MDRD (S/P/Bld) [Vol rate/Area] mL/min/{1.73_m2} Normal >60mL/min/1 .73m2 [facility] Comment on above: Result Comment: If t he patient is , multiply the result by 1.210. Performed By: #### G FR #### [place] [address] Magnesium Bloodon 10-12-2019 Magnesium [Mass/Vol] 1.9 mg/dL Normal 1.6-2.6 [facility] Comment on above: Performed By: #### C BCD1 #### [place] [address] PTH, Intacton 10-12-2019 PTH, Intact 27.7 pg/mL Normal 18.5-88.0 [facility] Comment on above: Performed By: #### P THI2 #### [place] [address] Phosphorus Bloodon 0 Phosphate [Mass/Vol] 2.6 mg/dL Normal 2.5-4.9 [facility] Comment on above: Performed By: #### P HOS #### [place] [address] TSH, 3rd generationon 2019 TSH, 3rd generation 1.810 uIU/mL Normal 0.358-3.740 [facility] Comment on above: Performed By: #### T SH3 #### [place] [address] Total 25-OH Vitamin Don 09-23 Total 25-OH Vitamin D 34.1 ng/mL Normal 30.0-100.0 [facility] Comment on above: Performed By: #### C BCD1 #### [place] [address] Nicotine and Cotinine, Serum on 10-10-2019 Nicotine and Cotinine, Serum SEE BELOW Normal [facility] Comment on above: Result Comment: Lam isaac <2 <2 ng/mL Cotinine 155 H <2 ng/mL Nornicotine Absent AB (NOTE) WHILE USING A TOBACCO PRODUCT: Peak Nicotine concentration: 30 ng/mL to 50 ng/mL Peak Cotinine concentration: 200 ng/mL to 800 ng/mL (Higher Cotinine values may be seen in subjects with high cytochrome P450 2D6 activity.) TOBACCO USER AFTER TWO WKS OF COMPLETE ABSTINENCE: Nicotine concentration: <2.0 ng/mL Cotinine concentration: <2.0 ng/mL NONTOBACCO USER WITH PASSIVE EXPOSURE: Nicotine concentration: <2.0 ng/mL Cotinine concentration: <8.0 ng/mL NONTOBACCO USER WITH NO PASSIVE EXPOSURE: Nicotine concentration: <2.0 ng/mL Cotinine concentration: <2.0 ng/mL The presence of nornicotine indicates tobacco or nicotine exposure while its absence does not rule out the exposure. To discriminate if a patient on nicotine replacement therapy is actively using a tobacco product, the presence of anabasine in URINE indicates recent tobacco use. Anabasine is a tobacco alkaloid not present in nicotine replacement products. This test was developed and its performance characteristics determined by [facility] [place]. It has not been cleared or approved by the FDA. [facility] is authorized under CLIA to perform high-complexity testing. This test is used for clinical purposes. It should not be regarded as investigational or for research. 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 Known osteoporosis. COMPARISON: Prior right ankle radiographs, the most recent 08/17/2019, bone densitometry 09/29/2019, CT right ankle 04/11/2019 and MRI right ankle 10/13/2018. A series of axial CT images are obtained of the right distal leg, ankle, hindfoot, midfoot and proximal forefoot without IV contrast with coronal and sagittal reformations. CT Dose-Length Product: 431 mGy*cm CT Dose Reduction Employed: No dose reduction techniques were required There is redemonstration of attempted tibiotalar arthrodesis. There is no appreciable consolidation of bone at the tibiotalar joint. There is narrowing of the tibiotalar joint with articular surface irregularity. There is redemonstration of an anterior tibiotalar fixation plate. There are three tibial fixation screws and two talar fixation screws. There is redemonstration of disruption of the plate at the level of the fourth screw at the level of the tibiotalar joint. The most distal screw is again seen to be retracted. The head of the screw is retracted approximately 4 mm proud to the fixation plate. There are three proximal and distal threaded screws redemonstrated traversing the tibiotalar joint. There is abnormal lucency along the proximal lateral screw. There is abnormal lucency along the distal middle screw which extends within the deep sinus tarsi. There is also abnormal lucency along the mid and distal medial screw. Findings are presumed related to loosening. There is diffuse loss of bone density having a coarse osteoporotic appearance. There is mature periosteal thickening along the distal tibia. There is no acute fracture or dislocation. There is no bone destruction. There are well-corticated ossific structures redemonstrated about the tibiotalar and posterior subtalar joints. Soft tissue detail is limited. There is redemonstration of lateral dislocation of the peroneus brevis and longus tendons from the retromalleolar groove. There is anterior tibiotalar effusion and/or synovial thickening dorsal to the distal talus. There is diffuse reticulation of subcutaneous fat suggesting edema. IMPRESSION: Postoperative changes of attempted tibiotalar arthrodesis without consolidation of bone across the tibiotalar joint. Disruption of the anterior fusion plate at the level of the fourth screw, at the level of the ankle joint. There is retraction of the distal most fixation screw with abnormal lucency surrounding the cannulated screws traversing the tibiotalar joint. Findings are most suggestive of loosening. An alternative diagnostic consideration is infection, considered less likely. Diffuse coarse osteoporotic appearance of bone. Lateral dislocation of the peroneus tendons. Anterior tibiotalar effusion and/or synovial thickening. 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: SHARONA Transcribe Date/Time: Oct 09 2019 8:23A Dictated by : PEYMAN NEGRETE MD This examination was interpreted and the report reviewed and electronically signed by: PEYMAN NEGRETE MD on Oct 09 2019 8:59AM EST Normal [facility] BD DXA - AXIAL SKELETONon BD DXA - AXIAL SKELETON * * *Final Report* * * DATE OF EXAM: Sep 29 2019 10:10AM [facility] 0804 - BD DXA - AXIAL SKELETON / PROCEDURE REASON: Special screening for osteoporosis * * * * Physician Interpretation * * * * EXAM TITLE: BONE MINERAL DENSITOMETRY COMPARISON:None CLINICAL INDICATION/HISTORY: Adult fracture TECHNIQUE: DXA BitWaveW-Watchsend v.13.4 examination was performed on the lumbar spine and hip. FINDINGS: 1. L1-L4 BMD is 0.8 g/cm2 which is 65% of peak bone mass compared to young normals which is -3.5 standard deviations relative to the mean of young normals (T-score). According to the World Health Organization criteria, this would be classified as osteoporosis. 2. Right hip BMD is 1 g/cm2 which is 91% of peak bone mass compared to young normals which is -0.7 standard deviations relative to the mean of young normals (T-score). According to the World Health Organization criteria, this would be classified as normal . 3. Right femoral neck BMD is 1 g/cm2 which is 93% of peak bone mass compared to young normals which is -0.6 standard deviations relative to the mean of young normals (T-score). According to the World Health Organization criteria, this would be classified as normal . IMPRESSION: There is osteoporosis within the assessed regions. RELATIVE FRACTURE RISK TABLE NOTE: This table applies to post-menopausal females. T-score Fracture risk 0 average risk for normal 40 year old -1 2 times the normal -2 4 times the normal -3 8 times the normal etc. GENERAL RECOMMENDATIONS FOR PREVENTION OF BONE LOSS: 1. 1200 mg - 1500 mg calcium per day if no history of renal calculi for adults 50 years and over. 2. 800 - 1000 International Units of vitamin D3 per day if no history of renal calculi for adults 50 years and over. 3. Weight bearing exercise 4. Discontinue smoking 5. Avoid excessive use of caffeine, soft drinks, and alcoholic beverages. The National Osteoporosis Foundation recommends that treatment be considered for patients with T-scores of -2 or lower (-1 or lower if patient at high risk for accelerated bone loss). 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: PSCB Transcribe Date/Time: Sep 30 2019 9:26P Dictated by : MANUEL LEW MD This examination was interpreted and the report reviewed and electronically signed by: MANUEL LEW MD on Sep 30 2019 9:27PM EST Normal [facility] VITAMIN Mick 06-28-2019 VITAMIN K 0.46 ng/mL Normal 0.13-1.88 [facility] Comment on above: Result Comment: This test was developed and its performance characteristics determined by [facility]. It has not been cleared or approved by the Food and Drug Administration. Performed By: #### L ACT #### [facility] [address] [place] [address] VITAMIN Aon 06-25-2019 VITAMIN A 39.2 ug/dL Normal 20.1-62.0 [facility] Comment on above: Result Comment: Refe rence intervals for vitamin A determined from [facility] internal studies. Individuals with vitamin A less than 20 ug/dL are considered vitamin A deficient and those with serum concentrations less than 10 ug/dL are considered severely deficient. This test was developed and its performance characteristics determined by [facility]. It has not been cleared or approved by the Food and Drug Administration. Test(s) 436420-Mhrdyud E(Alpha Tocopherol); 380463- Vitamin E(Gamma Tocopherol) was developed and its performance characteristics determined by [facility]. It has not been cleared or approved by the Food and Drug Administration. Performed By: #### L ACT #### [facility] [address] [place] [address] VITAMIN Jose 06-25-2019 VITAMIN E [ALPHA TOCOPHEROL] 16.9 mg/L Normal 7.0-25.1 [facility] Comment on above: Performed By: #### L ACT #### [facility] [address] [place] [address] VITAMIN E [GAMMA TOCOPHEROL] 2.6 mg/L Normal 0.5-5.5 [facility] Comment on above: Result Comment: Refe rence intervals for alpha and gamma-tocopherol determined from [facility] Health and Nutrition Examination Survey, 1972-0985. Individuals with alpha-tocopherol levels less than 5.0 mg/L are considered vitamin E deficient. Test(s) 352024-Tryjztj E(Alpha Tocopherol); 685928- Vitamin E(Gamma Tocopherol) was developed and its performance characteristics determined by [employer] It has not been cleared or approved by the Food and Drug Administration. Performed By: #### L ACT #### [facility] [address] [place], [place] PANCREATIC ELASTASE,FECALon 06-23-2019 PANCREATIC ELASTASE,FECAL 19 ug/g Low >=201 [facility] Comment on above: Result Comment: REFE RENCE INTERVAL: Pancreatic Elastase, Fecal by NABIL Greater than 200 ug/g ........ Normal 100-200 ug/g ................. Moderate to mild pancreatic insufficiency Less than 100 ug/g ........... Severe exocrine pancreatic insufficiency Reference range does not apply for infants less than one month old. Performed by [facility], [address] [place] [id number] [email or web address], Kenn Small MD, Lab. Director Performed By: #### C BCDF #### [facility] [address] [place], [place] AMYLASE,FLUIDon 06-19-2019 AMYLASE,FLUID [address] U/L Normal [facility] Comment on above: Result Comment: REF VALUE NOT ESTABLISHED The performance characteristics of this method have not been validated for use with body fluids other than serum or plasma. The test result should be interpreted in conjunction with additional clinical and laboratory data. Performed By: #### C BCDF #### [facility] [address] [place] [address] CBCon 06-19-2019 Erythrocyte distribution width (RBC) [Ratio] 14.0 % Normal 11.5 - 14.5 [facility] Comment on above: Performed By: #### C MP #### [facility] [address] [place] [address] Hematocrit (Bld) [Volume fraction] 35.5 % Low 41.0 - 52.0 [facility] Comment on above: Performed By: #### C MP #### [facility] [address] [place] [address] Hemoglobin (Bld) [Mass/Vol] 11.1 g/dL Low 13.5 - 17.5 [facility] Comment on above: Performed By: #### C MP #### [facility] [address] [place] [address] MCHC (RBC) [Mass/Vol] 31.3 g/dL Low 32.0 - 36.0 [facility] Comment on above: Performed By: #### C MP #### [facility] [address] [place] [address] MCV (RBC) [Entitic vol] 92 fL Normal 80 - 100 [facility] Comment on above: Performed By: #### C MP #### [facility] [address] [place] [address] Nucleated RBC/100 WBC (Bld) [Ratio] 0.0 /100 WBC Normal 0.0-0.0 [facility] Comment on above: Performed By: #### C MP #### [facility] [address] [place] [address] Platelets (Bld) [#/Vol] 314 10*3/uL Normal 150 - 450 [facility] Comment on above: Performed By: #### C MP #### [facility] [address] [place] [address] RBC (Bld) [#/Vol] 3.85 x10E12/L Low 4.50 - 5.90 [facility] Comment on above: Performed By: #### C MP #### [facility] [address] [place] [address] WBC (Bld) [#/Vol] 5.0 10*3/uL Normal 4.4 - 11.3 [facility] Comment on above: Performed By: #### C MP #### [facility] [address] [place] [address] CEA,FLUIDon 06-19-2019 CEA,FLUID 34.3 ug/L Normal [facility] Comment on above: Result Comment: CEA testing is performed by chemiluminescent immunoassay using the Siemens Popcorn5ia Intizaaur. Values obtained with different analytic methods cannot be used interchangeably. REF VALUE NOT ESTABLISHED The performance characteristics of this method have not been validated for use with body fluids other than serum or plasma. The test result should be interpreted in conjunction with additional clinical and laboratory data. Performed By: #### C BCDF #### [facility] [address] [place] [address] Lab Specimen Source Source, Other Normal [facility] Comment on above: Performed By: #### C BCDF #### [facility] [address] [place] [address] COMPREHENSIVE PANELon 2018 Albumin [Mass/Vol] 4.3 g/dL Normal 3.4 - 5.0 [facility] Comment on above: Performed By: #### C MP #### [facility] [address] [place] [address] ALP [Catalytic activity/Vol] 398 U/L High 33 - 120 [facility] Comment on above: Performed By: #### C MP #### [facility] [address] [place] [address] ALT [Catalytic activity/Vol] 163 U/L High 10 - 52 [facility] Comment on above: Result Comment: Soni ents treated with Sulfasalazine may generate falsely decreased results for ALT. Performed By: #### C MP #### [facility] [address] [place] [address] Anion gap [Moles/Vol] 15 mmol/L Normal 10 - 20 [facility] Comment on above: Performed By: #### C MP #### [facility] [address] [place] [address] AST [Catalytic activity/Vol] 25 U/L Normal 9 - 39 [facility] Comment on above: Performed By: #### C MP #### [facility] [address] [place] [address] Bilirubin [Mass/Vol] 0.7 mg/dL Normal 0.0 - 1.2 [facility] Comment on above: Performed By: #### C MP #### [facility] [address] [place] [address] Calcium [Mass/Vol] 9.9 mg/dL Normal 8.6 - 10.6 [facility] Comment on above: Performed By: #### C MP #### [facility] [address] [place] [address] Chloride [Moles/Vol] 103 mmol/L Normal 98 - 107 [facility] Comment on above: Performed By: #### C MP #### [facility] [address] [place] [address] Creatinine [Mass/Vol] 0.73 mg/dL Normal 0.50 - 1.30 [facility] Comment on above: Performed By: #### C MP #### [facility] [address] [place] [address] GFR- AM. >60 Normal >60 [facility] Comment on above: Result Comment: CALC ULATIONS OF ESTIMATED GFR ARE PERFORMED USING THE MDRD STUDY EQUATION FOR THE IDMS-TRACEABLE CREATININE METHODS. CLIN CHEM 2007;53:766-72 Performed By: #### C MP #### [facility] [address] [place] [address] GFR-NON AM. >60 Normal >60 [facility] Comment on above: Performed By: #### C MP #### [facility] [address] [place] [address] Glucose [Mass/Vol] 191 mg/dL High 74 - 99 [facility] Comment on above: Performed By: #### C MP #### [facility] [address] [place] [address] HCO3 (Bld) [Moles/Vol] 23 mmol/L Normal 21 - 32 [facility] Comment on above: Performed By: #### C MP #### [facility] [address] [place] [address] Potassium [Moles/Vol] 3.9 mmol/L Normal 3.5 - 5.3 [facility] Comment on above: Performed By: #### C MP #### [facility] [address] [place] [address] Protein [Mass/Vol] 6.7 g/dL Normal 6.4 - 8.2 [facility] Comment on above: Performed By: #### C MP #### [facility] [address] [place] [address] Sodium [Moles/Vol] 137 mmol/L Normal 136 - 145 [facility] Comment on above: Performed By: #### C MP #### [facility] [address] [place] [address] Urea nitrogen [Mass/Vol] 9 mg/dL Normal 6 - 23 [facility] Comment on above: Performed By: #### C MP #### [facility] [address] [place] [address] FAT, STOOLon 06-19-2019 NEUTRAL FAT NORMAL Normal NEGATIVE [facility] Comment on above: Performed By: #### C BCDF #### [facility] [address] [place] [address] SPLIT FAT NORMAL Normal NEGATIVE [facility] Comment on above: Result Comment: NEUT RAL FATS INCLUDE THE MONOGLYCERIDES, DIGLYCERIDES, AND TRIGLYCERIDES WHILE SPLIT FATS ARE THE FREE FATTY ACIDS THAT ARE LIBERATED FROM THEM. IMPAIRED SYNTHESIS OR SECRETION OF PANCREATIC ENZYMES OR BILE MAY CAUSE AN INCREASE IN NEUTRAL FATS WHILE AN INCREASE IN SPLIT FATS SUGGESTS IMPAIRED ABSORPTION OF NUTRIENTS. Performed By: #### C BCDF #### [facility] [address] [place] [address] GLUCOSE,FLUIDon 06-19-2019 GLUCOSE,FLUID 19 mg/dL Normal [facility] Comment on above: Result Comment: REF VALUE NOT ESTABLISHED The performance characteristics of this method have not been validated for use with body fluids other than serum or plasma. The test result should be interpreted in conjunction with additional clinical and laboratory data. Performed By: #### C BCDF #### [facility] [address] [place] [address] GLUCOSE-POCTon 06-19-2019 Glucose [Mass/Vol] 157 mg/dL High 74 - 99 [facility] Comment on above: Performed By: #### C BCDF #### [facility] [address] [place] [address] Glucose [Mass/Vol] 187 mg/dL High 74 - 99 [facility] Comment on above: Performed By: #### C BCDF #### [facility] [address] [place] [address] PT/INRon 06-19-2019 INR Coag (PPP) [Relative time] 1.1 {INR} Normal 0.9 - 1.1 [facility] Comment on above: Performed By: #### C MP #### [facility] [address] [place] [address] PT Coag (PPP) [Time] 12.3 s Normal 9.7 - 12.7 [facility] Comment on above: Performed By: #### C MP #### [facility] [address] [place] [address] [facility] Surgical Pathology Depar tmenton 06-19-[address] [facility] Surgical Pathology Department Name AGA ADAN Pathologist: SHERRI HOWARD M.D. Date of Procedure: 06/19/2019 Date Received: 06/19/2019 Date Reported 06/21/2019 Submitting Physician: DESMOND SILVA DO Location: [id number] Copy To/Referring/Attending: Orin Cunha MD Other External # FINAL DIAGNOSIS A. 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 No definitive diagnostic evidence of malignancy identified in this biopsy. Electronically Signed Out By SHERRI HOWARD M.D./LEE By the signature on this report, the individual or group listed as making the Final Interpretation/Diagnosis certifies that they have reviewed this case. Clinical History: {Not Provided} Specimens Submitted As: A: FNA HEAD OF PANCREATIC MASS Gross Description: Received in formalin, labeled with the patient's name and hospital number and FNA head of pancreatic mass", are multiple fragments of hurd-red, soft tissue aggregating to 0.6 x 0.2 x 0.1 cm. The specimen is submitted in toto in one cassette. DPG dpg/06/19/2019 The assays/tests were performed with appropriate positive and negative controls which stained appropriately. Normal [facility] Comment on above: Performed By: #### C BCDF #### [facility] [address] [place] [address] CBCon 06-18-2019 Erythrocyte distribution width (RBC) [Ratio] 14.4 % Normal 11.5 - 14.5 [facility] Comment on above: Performed By: #### C BC ####[id number] [place] [address] Hematocrit (Bld) [Volume fraction] 31.8 % Low 41.0 - 52.0 [facility] Comment on above: Performed By: #### C BC ####[id number] [place] [address] Hemoglobin (Bld) [Mass/Vol] 10.2 g/dL Low 13.5 - 17.5 [facility] Comment on above: Performed By: #### C BC ####[id number] [place] [address] MCHC (RBC) [Mass/Vol] 32.1 g/dL Normal 32.0 - 36.0 [facility] Comment on above: Performed By: #### C BC ####[id number] [place] [address] MCV (RBC) [Entitic vol] 92 fL Normal 80 - 100 [facility] Comment on above: Performed By: #### C BC ####[id number] [place] [address] Nucleated RBC/100 WBC (Bld) [Ratio] 0.0 /100 WBC Normal 0.0-0.0 [facility] Comment on above: Performed By: #### C BC ####[id number] [place] [address] Platelets (Bld) [#/Vol] 272 10*3/uL Normal 150 - 450 [facility] Comment on above: Performed By: #### C BC ####[id number] [place] [address] RBC (Bld) [#/Vol] 3.47 x10E12/L Low 4.50 - 5.90 [facility] Comment on above: Performed By: #### C BC ####[id number] [place] [address] WBC (Bld) [#/Vol] 3.7 10*3/uL Low 4.4 - 11.3 [facility] Comment on above: Performed By: #### C BC ####[id number] [place] [address] COMPREHENSIVE PANELon 2018 Albumin [Mass/Vol] 4.1 g/dL Normal 3.4 - 5.0 [facility] Comment on above: Performed By: #### C MP ####[id number] [place] [address] ALP [Catalytic activity/Vol] 463 U/L High 33 - 120 [facility] Comment on above: Performed By: #### C MP ####[id number] [place] [address] ALT [Catalytic activity/Vol] 211 U/L High 10 - 52 [facility] Comment on above: Result Comment: Soni ents treated with Sulfasalazine may generate falsely decreased results for ALT. Performed By: #### C MP ####[id number] [place] [address] Anion gap [Moles/Vol] 17 mmol/L Normal 10 - 20 [facility] Comment on above: Performed By: #### C MP ####[id number] [place] [address] AST [Catalytic activity/Vol] 36 U/L Normal 9 - 39 [facility] Comment on above: Performed By: #### C MP ####[id number] [place] [address] Bilirubin [Mass/Vol] 0.8 mg/dL Normal 0.0 - 1.2 [facility] Comment on above: Performed By: #### C MP ####[id number] [place] [address] Calcium [Mass/Vol] 9.3 mg/dL Normal 8.6 - 10.6 [facility] Comment on above: Performed By: #### C MP ####[id number] [place] [address] Chloride [Moles/Vol] 106 mmol/L Normal 98 - 107 [facility] Comment on above: Performed By: #### C MP ####[id number] [place] [address] Creatinine [Mass/Vol] 0.73 mg/dL Normal 0.50 - 1.30 [facility] Comment on above: Performed By: #### C MP ####[id number] [place] [address] GFR- AM. >60 Normal >60 [facility] Comment on above: Result Comment: CALC ULATIONS OF ESTIMATED GFR ARE PERFORMED USING THE MDRD STUDY EQUATION FOR THE IDMS-TRACEABLE CREATININE METHODS. CLIN CHEM 2007;53:766-72 Performed By: #### C MP ####[id number] [place] [address] GFR-NON AM. >60 Normal >60 [facility] Comment on above: Performed By: #### C MP ####[id number] [place] [address] Glucose [Mass/Vol] 163 mg/dL High 74 - 99 [facility] Comment on above: Performed By: #### C MP ####[id number] [place] [address] HCO3 (Bld) [Moles/Vol] 23 mmol/L Normal 21 - 32 [facility] Comment on above: Performed By: #### C MP ####[id number] [place] [address] Potassium [Moles/Vol] 3.5 mmol/L Normal 3.5 - 5.3 [facility] Comment on above: Performed By: #### C MP ####[id number] [place] [address] Protein [Mass/Vol] 6.3 g/dL Low 6.4 - 8.2 [facility] Comment on above: Performed By: #### C MP ####[id number] [place] [address] Sodium [Moles/Vol] 142 mmol/L Normal 136 - 145 [facility] Comment on above: Performed By: #### C MP ####[id number] [place] [address] Urea nitrogen [Mass/Vol] 4 mg/dL Low 6 - 23 [facility] Comment on above: Performed By: #### C MP ####[id number] [place] [address] Daily Progress Note-Gastroen terologyon 06-18-2019 Daily Progress Note-Gastroenterology Service: Gastroenterology Subjective Data: AGA ADAN is a 54 year old Male who is Hospital Day # 3. No acute overnight events Today, patient continues to have epigastric abdominal pain which he says is unchanged from yesterday. He denies any n/v, hematochezia, melena, hemoptysis, fever/chills. His biggest concern is that he undergoes EUS as soon as possible as he does not have insurance. No other concerns. Objective Data: Objective Information: T PRBPSpO2 [id number]/8898% Date/Time06/18 6: 6: 6: 6: 6:14 Range(36.2C - 36.9C ) (67 - 81 ) (16 - 18 ) (137 - 159 )/ (82 - 90 ) (97% - 99% ) Highest temp of 36.9 C was recorded at 06/18 2:03 Pain reported at 06/18 2:59: sleeping Physical Exam: Constitutional: Well developed, awake/alert/oriented x3, no distress, alert and cooperative Eyes: PERRL, EOMI, clear sclera ENMT: MMM, no lesions noted Head/Neck: No JVD, no lymphadenopathy Respiratory/Thorax: CTAB, no wheezes or crackles Cardiovascular: RRR, S1, S2, no murmurs Gastrointestinal: tender in epigastric and RUQ, nondistended, +BS, soft Musculoskeletal: ROM intact, no joint swelling, normal strength. R ankle fracture hx causing decreased ROM Extremities: normal extremities, no cyanosis or edema Neurological: CN intact, no focal motor or sensory deficits Psychological: Appropriate mood and behavior Skin: Warm and dry, no lesions, no rashes Medication: Medications: Continuous Medications ------- 1. Lactated Ringers Infusion: 1000 mL IntraVenous Scheduled Medications ------- 1. Aspirin Chewable: 81 mg Oral Daily 2. Atenolol: 50 mg Oral Daily 3. buPROPion (WELLBUTRIN XL) Extended Release (24 hour): 150 mg Oral Every 24 Hours 4. Calcium 500 mg - Vitamin D 200 Units: 1 tablet(s) Oral Daily 5. Cyanocobalamin: 1000 microgram(s) Oral Daily 6. Enoxaparin SubCutaneous: 40 mg SubCutaneous Every 24 Hours 7. Fluticasone 50 microgram/ Nasal Inhalation: 1 spray(s) Each Nostril Daily 8. Folic Acid: 1 mg Oral Daily 9. Gemfibrozil: 600 mg Oral 2 Times a Day 10. Insulin Lispro Mild Corrective Scale: unit(s) SubCutaneous 3 Times a Day Before Meals 11. Pantoprazole: 40 mg Oral Daily 12. QUEtiapine: 100 mg Oral Daily 13. Thiamine: 100 mg Oral Daily PRN Medications ------- 1. Acetaminophen: 650 mg Oral Every 4 Hours 2. Dextrose 50% in Water Injectable: 25 gram(s) IntraVenous Push Every 15 Minutes 3. Glucagon Injectable: 1 mg IntraMuscular Every 15 Minutes 4. HYDROmorphone Injectable: 0.2 mg IntraVenous Push Every 6 Hours 5. Mometasone 220 microgram/ Inhalation: 1 inhalation Inhalation Every 12 Hours 6. Ondansetron Injectable: 4 mg IntraVenous Push Every 6 Hours 7. oxyCODONE Immediate Release: 5 mg Oral Every 4 Hours Recent Lab Results: Results: I have reviewed these laboratory results: Complete Blood Count 18-Jun-2019 06:50:00 ResultValue White Blood Cell Count 3.7 L Nucleated Erythrocyte Count 0.0 Red Blood Cell Count 3.47 L HGB 10.2 L HCT 31.8 L MCV 92 MCHC 32.1 PLT 272 RDW-CV 14.4 Comprehensive Metabolic Panel 18-Jun-2019 06:50:00 ResultValue Glucose, Serum 163 H NA 142 K 3.5 CL 106 Bicarbonate, Serum 23 Anion Gap, Serum 17 BUN 4 L CREAT 0.73 GFR-Non >60 GFR- >60 Calcium, Serum 9.3 ALB 4.1 ALKP 463 H T Pro 6.3 L T Bili 0.8 Alanine Aminotransferase, Serum 211 H Aspartate Transaminase, Serum 36 Lipase, Serum 24-May-2019 06:50:00 ResultValue Lipase, Serum 171 H Radiology Results: Results: Impression: 1. Limited study due to lack of IV contrast. 2. Heterogenous T1 and T2 signal of the pancreatic parenchyma predominantly at the head anduncinate process with adjacent inflammatory changes, likely acute pancreatitis. 3. A 2.0 x 1.9 x 2.3 cm pancreatic head cystic lesion connected to the main pancreatic duct with heterogeneous T2 signal and possible layering debris. Mildly dilated pancreatic duct measuring up to 6 mm at the head. While assessment is limited by lack of IV contrast and a solid component cannot be excluded, however findings more likely represent a pseudocyst in the setting of pancreatitis. 4. 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 5. Trace upper abdominal ascites. 6. Multiple mildly enlarged upper abdominal and peripancreatic lymph nodes. Submitted for interpretation are outside hospital CT images from [facility], bearing the patient's name and dated (available for interpretation at [facility] on 06/17/2019). These contain a creative director multiplanner multisequential MRI images without IV contrast. The report was requested for medical necessity by Dr. MIRANDA PEREZ. Please note that outside hospital CT interpretation is greatly limited by lack of technical factors, information about clinical setting, contrast timing, etc. The interpretation provided is the best possible under the circumstances but please obtain the original interpretation by the supervising radiologist/service. Radiology Consult Non Radiology Second Reading (Patient is billed) [Jun 17 2019 5:54PM] Assessment and Plan: Assessment: Aga Adan is a 54 yo M with a PMH of HTN, DLD, CAD, ANYA (not on CPAP), DM II, chronic pancreatitis (c/b uncinate process lesion), GERD, depression/anxiety, and EtOH abuse who presents as a transfer from [facility] for acute pancreatitis with enlarging uncinate process complex cystic lesion seen on 06/14 MRCP. DDx includes walled-off necrosis/pseudocyst vs IPMN vs pancreatic cancer. Acute on chronic pancreatitis improving. Will continue to treat pancreatitis and further characterize pancreatic lesion with biopsy. Patient is HDS and overall well appearing, so does not require emergent procedure over the weekend. Will plan for EUS with possible ERCP tomorrow. Patient does not have insurance #Complex pancreatic cyst #Acute on chronic pancreatitis - enlarging complex cyst in uncinate process over past 6 months seen on 06/14 MRI (images in PACS) - ddx pseudocyst vs IPMN vs pancreatic cancer vs biliary stricture vs external biliary compression - CEA from OSH was 0.5 on 06/14 - CA 19-9 13.66 - Lipase originally 1811 - HCV and HBV negative; TG 187 - Low fat diet - 100 cc/hr LR, will consider stopping fluids tomorrow - Discontinued dilaudid today, will attempt to control pain with oxycodone 5mg q6hr PRN and acetaminophen 650mg q8hr - EUS +/- ERCP planned for 06/19 or 06/20 - f/u fecal fat, fecal elastase, vitamins ADEK #Cholestasis/transaminiti s - Downtrending - Alk phos still elevated to 566, bili now normal - intra- and extra-hepatic biliary dilation seen on MRCP-- likely mass effect vs stricture #HTN - BP 176/87 upon admission - resumed atenolol 50 mg - BPs have been in 150-160s after resuming - previous med rec includes verapamil 40 mg; patient denies taking at home #DLD - lipid panel from OSH: chol 233, LDL 159, HDL 37, TG 187 - continue home gemfibrozil 600 mg BID - hold home rosuvastatin 20 mg in setting of acute LFT elevation, will restart on discharge #CAD - no hx PCI/CABG; medically managed - continue ASA 81 mg #DM II - Holding home metformin 1000 BID - Mild SSI while inpatient #Anxiety/depression - continue home seroquel 100 mg and bupropion 150 mg F: 100 cc/hr LR E: replete PRN N: low fat diet A: PIV DVT: SQ lovenox GI: protonix 40 mg FULL CODE Signature/Cosignature/Att estation: Note Completion: I am a: Resident/Fellow Attending AttestationI saw and evaluated the patient. I personally obtained the ko and critical portions of the history and physical exam or was physically present for ko and critical portions performed by the resident/fellow. I reviewed the resident/fellows documentation and discussed the patient with the resident/fellow. I agree with the resident/fellows medical decision making as documented in the note. I personally evaluated the patient [id number] Comments/ Additional Findings Patient with acute on chronic alcoholic pancreatitis c/b a complex cystic lesion in the uncinate process, presumed to be a pseudocyst, dating back to at least October 2018. CA 19-9 was checked and was WNL. Presents now with another attack with imaging showing mildly dilated CBD and PD and persistent complex cystic lesion. Of note, patient with chronic pain form a RLE fracture a year ago c/b pelvic fracture 4 weeks ago s/p mechanical fall, on chronic opioids. He continues to drink alcohol, down to about 2 beers/night along with ongoing tobacco use. We are working on getting an overread on his most recent MRI images at OSH. Suspect that this cyst is a pseudocyst/WON, however, given mild mass effect on the BD and PD along with complex nature of the cyst, recommend eventual EUS to further evaluate the cyst and ampullary area, plan for tomorrow vs wednesday depending on the schedule. Will consent for ERCP in the case that it is indicated based on EUS findings, although unlikely. LFTs trending down and likely from acute on chronic pancreatitis Will continue supportive care for now Patient strongly encouraged to stop drinking alcohol and quit smoking in order to prevent further pancreatic damage. Will follow-up full chronic pancreatitis lab eval to evaluate for endocrine/exocrine insufficiency and vitamin deficiency. He should be followed closely as OP by a Pancreatologist. Over 35 minutes were spent with this patient. Greater than 50% of this time was spent in counselling and/or coordination of care. It has been a pleasure to participate in the care of this patient. Please call with any further questions or concerns. Orin Cunha MD GI Electronic Signatures: Orin Cunha) (Signed 24-Jun-2019 15:41) Authored: Signature/Cosignature/Att estation Co-Signer: Service, Subjective Data, Objective Data, Assessment and Plan, Signature/Cosignature/Att estation Iliana Jackson (Resident)) (Signed 18-Jun-2019 11:47) Authored: Service, Subjective Data, Objective Data, Assessment and Plan, Signature/Cosignature/Att estation Last Updated: 24-Jun-2019 15:41 by Orin Cunha) Normal [facility] EMR ADDONon 06-18-2019 ADDON CONFIRMATION REQUEST REC'D Normal [facility] Comment on above: Performed By: #### C MP #### [facility] [address] [place] [address] ADDON CONFIRMATION REQUEST REC'D Normal [facility] Comment on above: Performed By: #### E MRAD ####NO LOCATION NEEDED ADDON CONFIRMATION REQUEST REC'D Normal [facility] Comment on above: Performed By: #### E MRAD ####NO LOCATION NEEDED GLUCOSE-POCTon 06-18-2019 Glucose [Mass/Vol] 177 mg/dL High 74 - 99 [facility] Comment on above: Performed By: #### C MP #### [facility] [address] [place] [address] Glucose [Mass/Vol] 203 mg/dL High 74 - 99 [facility] Comment on above: Performed By: #### C MP #### [facility] [address] [place] [address] Glucose [Mass/Vol] 190 mg/dL High 74 - 99 [facility] Comment on above: Performed By: #### C MP #### [facility] [address] [place] [address] Glucose [Mass/Vol] 156 mg/dL High 74 - 99 [facility] Comment on above: Performed By: #### G PRACHI ####[id number] [place] [address] HEMOGLOBIN A1Con 06-18-2019 HbA1c (Bld) [Mass fraction] 148 MG/DL Normal [facility] Comment on above: Performed By: #### C MP #### [facility] [address] [place] [address] HbA1c (Bld) [Mass fraction] 6.8 % Normal [facility] Comment on above: Result Comment: Diag nosis of Diabetes-Adults Non-Diabetic: < or = 5.6% Increased risk for developing diabetes: 5.7-6.4% Diagnostic of diabetes: > or = 6.5% . Monitoring of Diabetes Age (y) Therapeutic Goal (%) Adults: >18 <7.0 Pediatrics: 13-18 <7.5 7-12 <8.0 0- 6 7.5-8.5 [employer]. Diabetes Care 33(S1), Jul 2009. Performed By: #### C MP #### [facility] [address] [place] [id number] LIPASEon 06-18-2019 Lipase [Catalytic activity/Vol] 171 U/L High 9 - 82 [facility] Comment on above: Result Comment: Candace puncture immediately after or during the administration of Metamizole may lead to falsely low results. Testing should be performed immediately prior to Metamizole dosing. Performed By: #### L IPAS ####[id number] [id number] TYPE + SCREENon 06-18-2019 ABO TYPE A Normal [facility] Comment on above: Performed By: #### C MP #### [facility] [address] [place] [address] RH TYPE Positive Normal [facility] Comment on above: Performed By: #### C MP #### [facility] [address] [place] [address] VITAMIN D, 25-HYDROXYon 05-27 VITAMIN D, 25-HYDROXY 39 ng/mL Normal [facility] Comment on above: Result Comment: . DEFICIENCY: < 20 NG/ML INSUFFICIENCY: 20-29 NG/ML OPTIMUM LEVEL: 30-80 NG/ML POSSIBLE TOXICITY: > 80 NG/ML THIS ASSAY ACCURATELY QUANTIFIES THE SUM OF VITAMIN D3, 25-HYDROXY AND VIT D2,25-HYDROXY. Performed By: #### C MP #### [facility] [address] [place] [address] Admission Risk Screen - Adul ton 06-17-2019 Admission Risk Screen - Adult Patient Verification: New W ID Band Applied in my Departmentyes Patient Identity Verified Bypatient ID Band FULL Name, include Middle, spelling matches patient's ID used for verificationyes ID Band Matches Patient ID used for Verficationyes ID Band MRN Matches EMR MRNyes Advance Directive: Advance Directive/DNRno Advance Directive Information Givenpatient/family declined Falls Screen: Type of Assessmentadmission Risk for Injury Associated with Fallbone disease (history of fracture, osteoporosis, osteogenesis imperfecta, bone metastasis) Fall Risk Conclusionmoderate falls risk with risk for associated injury Amasa Safety InterventionsWDL *orient to call system *instruct to call for assistance before getting out of bed *non-slip footwear when patient is out of bed *call eastman in reach *personal items and telephone in reach *physically safe environment (no spills or clutter) *bed in lowest position with wheels locked *appropriate side rails in place *room/bathroom lighting operational, light cord in reach *appropriate signage on door Family Violence Screen: Are you or have you been threatened or abused physically, emotionally, or sexually by anyoneno Has anyone ever threatened to hurt your family or your petsno Does anyone try to keep you from having/contacting other friends or doing things outside your homeno Do you feel UNSAFE going back to the place where you are livingno Do you feel anyone has exploited or taken advantage of you financially or of your personal propertyno Clinical assessment: Are there any apparent signs of injuries/behaviors that could be related to abuse/neglectno Social Service Consult for abuse/neglect needed this visitno Functional Screen: Functional Screen: In the recent/past 2-4 weeks, patient or family have noticedno issues that require a speech/language consult at this time AM-PAC- Basic Mobility/Daily Activity: Patient baseline bedboundno Learning Assessment (Patient): Patient is Able to be Assessed for Learningyes Factors Influencing Readiness to Learnanxiety Factors that Impact Ability to Learnnone Devices/Methods Used to Communicatenone Learning Preferencesvideo; pictorial; verbal instruction Cultural Considerationsnone Developmental Considerationsnone Cheondoism Considerationsreligious considerations Worship Learning Assessment (Other Learner): Other learner availableno Suicide/Depression Screen: During the past month, have you often been bothered by feeling down, depressed or hopelessyes During the past month, have you often had little interest or pleasure in doing thingsyes Have you had any thoughts of harming yourselfno Have you had any thoughts of harming anyone elseno Adult Nutrition Screen: Have you recently lost weight without tryingno Have you been eating poorly because of a decreased appetiteyes Malnutrition Screening Tool Score1 Malnutrition Screening Tool RiskMST = 0 or 1 Not at risk. Eating well with little or no weight loss Nutrition Consult needed this visitno Can Patient Participate in Room Serviceyes Patient requires Paper Dishes/Plastic Utensilsno Pain Screen: Pain Scalenumerical 0-10 Pain Scale Educationteaching provided Current Pain Level8 = Severe Acceptable Pain Level3 = Mild Expression of Pain (nonverbal)none Chronic Painyes Chronic Back pain locationlower Chronic Pelvic pain locationleft Factors that Aggravate Painactivity Factors that Relieve Painmedications..., repositioning, immobilization, relaxation Medications that Relieve Painacetaminophen (Tylenol), hydromorphone (Dilaudid), oxycodone (OxyContin) Spiritual Screen: Are there any cultural, spiritual, confucianist practices/values/needs that are important for us to knowno CAGE: Is this an injured patient at a Trauma Center ([facility]/[place]/ [place]): yes C: Have you ever felt you needed to Cut down on your drinking: no A: Have people Annoyed you by criticizing your drinking: no G: Have you ever felt Guilty about drinking: no E: Have you ever felt you needed a 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) to steady your nerves or to get rid of hangover: no Vaccinations: Vaccination - Influenza Vaccination Screen: Is it flu season (between and November 22)Yes Screening for identified contraindications to influenza vaccination patient/caregiver refusal Vaccination - Pneumonia Vaccination Screen: Patient has received a previous pneumonia vaccine:yes Kenyon: Skin - Kenyon Scale: Kenyon: Sensory Perception (response to environment)(4) no impairment Kenyon: Moisture (degree skin exposed to moisture)(4) rarely moist Kenyon: Activity (ability to walk)(3) walks occasionally Kenyon: Mobility (amount/control of body movement)(3) slightly limited Kenyon: Nutrition (quality of food intake)(3) adequate Kenyon: Friction and Shear(3) no apparent problem Kenyon: Score20 Significant Indicatiors: Significant Indicators: Complete Pressure Injury: Pressure Injury Present on Admissionno Electronic Signatures: Alex Guillermo) (Signed 16-Jun-2019 22:36) Authored: Admission Risk Screens, Vaccinations, Kenyon, Pressure Injury Last Updated: 16-Jun-2019 22:36 by Alex Guillermo (JACINTA) Normal [facility] [id number] 06-17-2019 CA19-9 13.66 U/mL Normal 0.00 - 30.90 [facility] Comment on above: Result Comment: CA 1 9-9 testing is performed by chemiluminescent immunoassay using the Siemens Advia Intizaaur. Values obtained with different analytic methods cannot be used interchangeably. . Serum CA 19-9 measurement is indicated for the serial measurement of CA 19-9 to aid in the management of patients diagnosed with cancers of the exocrine pancreas. This assay is not intended for screening or diagnosis of cancer in the general population. The results must not be used as the sole means for clinical diagnosis or patient management decisions. . Patients known to be genotypically negative for the Dwain blood group antigens will be unable to produce CA 19-9 antigen, even in malignant tissue. Phenotyping for the presence of the Dwain antigen may be insufficient to detect true Dwain antigen negative individuals. . The results must not be used as the sole means for clinical diagnosis or patient management decisions. Performed By: #### C A199 ####[id number] [place] [address] CBCon 06-17-2019 Erythrocyte distribution width (RBC) [Ratio] 14.6 % High 11.5 - 14.5 [facility] Comment on above: Performed By: #### C BC #### [facility] [address] [place] [address] Hematocrit (Bld) [Volume fraction] 32.3 % Low 41.0 - 52.0 [facility] Comment on above: Performed By: #### C BC #### [facility] [address] [place] [address] Hemoglobin (Bld) [Mass/Vol] 10.4 g/dL Low 13.5 - 17.5 [facility] Comment on above: Performed By: #### C BC #### [facility] [address] [place] [address] MCHC (RBC) [Mass/Vol] 32.2 g/dL Normal 32.0 - 36.0 [facility] Comment on above: Performed By: #### C BC #### [facility] [address] [place] [address] MCV (RBC) [Entitic vol] 92 fL Normal 80 - 100 [facility] Comment on above: Performed By: #### C BC #### [facility] [address] [place] [address] Nucleated RBC/100 WBC (Bld) [Ratio] 0.0 /100 WBC Normal 0.0-0.0 [facility] Comment on above: Performed By: #### C BC #### [facility] [address] [place] [address] Platelets (Bld) [#/Vol] 281 10*3/uL Normal 150 - 450 [facility] Comment on above: Performed By: #### C BC #### [facility] [address] [place] [address] RBC (Bld) [#/Vol] 3.52 x10E12/L Low 4.50 - 5.90 [facility] Comment on above: Performed By: #### C BC #### [facility] [address] [place] [address] WBC (Bld) [#/Vol] 4.1 10*3/uL Low 4.4 - 11.3 [facility] Comment on above: Performed By: #### C BC #### [facility] [address] [place] [address] CBC AND DIFFERENTIALon 06-17 % AUTOMATED IMMATURE GRAN Canceled Normal [facility] Comment on above: Order Comment: TEST CBC AND DIFFERENTIAL WAS CANCELLED, 06/17/2019 07:38 NO SPECIMEN RECEIVED IN LAB. Result Comment: Perc ent differential counts (%) should be interpreted in the context of the absolute cell counts (cells/L). Performed By: #### C BCDF #### [facility] [address] [place] [address] Basophils (Bld) [#/Vol] Canceled Normal [facility] Comment on above: Order Comment: TEST CBC AND DIFFERENTIAL WAS CANCELLED, 06/17/2019 07:38 NO SPECIMEN RECEIVED IN LAB. Performed By: #### C BCDF #### [facility] [address] [place] [address] Basophils/100 WBC (Bld) Canceled Normal [facility] Comment on above: Order Comment: TEST CBC AND DIFFERENTIAL WAS CANCELLED, 06/17/2019 07:38 NO SPECIMEN RECEIVED IN LAB. Performed By: #### C BCDF #### [facility] [address] [place] [address] DIFFERENTIAL Canceled Normal [facility] Comment on above: Order Comment: TEST CBC AND DIFFERENTIAL WAS CANCELLED, 06/17/2019 07:38 NO SPECIMEN RECEIVED IN LAB. Performed By: #### C BCDF #### [facility] [address] [place] [address] Eosinophils (Bld) [#/Vol] Canceled Normal [facility] Comment on above: Order Comment: TEST CBC AND DIFFERENTIAL WAS CANCELLED, 06/17/2019 07:38 NO SPECIMEN RECEIVED IN LAB. Performed By: #### C BCDF #### [facility] [address] [place] [address] Eosinophils/100 WBC (Bld) Canceled Normal [facility] Comment on above: Order Comment: TEST CBC AND DIFFERENTIAL WAS CANCELLED, 06/17/2019 07:38 NO SPECIMEN RECEIVED IN LAB. Performed By: #### C BCDF #### [facility] [address] [place] [address] Erythrocyte distribution width (RBC) [Ratio] Canceled Normal [facility] Comment on above: Order Comment: TEST CBC AND DIFFERENTIAL WAS CANCELLED, 06/17/2019 07:38 NO SPECIMEN RECEIVED IN LAB. Performed By: #### C BCDF #### [facility] [address] [place] [address] Hematocrit (Bld) [Volume fraction] Canceled Normal [facility] Comment on above: Order Comment: TEST CBC AND DIFFERENTIAL WAS CANCELLED, 06/17/2019 07:38 NO SPECIMEN RECEIVED IN LAB. Performed By: #### C BCDF #### [facility] [address] [place] [address] Hemoglobin (Bld) [Mass/Vol] Canceled Normal [facility] Comment on above: Order Comment: TEST CBC AND DIFFERENTIAL WAS CANCELLED, 06/17/2019 07:38 NO SPECIMEN RECEIVED IN LAB. Performed By: #### C BCDF #### [facility] [address] [place] [address] Lymphocytes (Bld) [#/Vol] Canceled Normal [facility] Comment on above: Order Comment: TEST CBC AND DIFFERENTIAL WAS CANCELLED, 06/17/2019 07:38 NO SPECIMEN RECEIVED IN LAB. Performed By: #### C BCDF #### [facility] [address] [place] [address] MCHC (RBC) [Mass/Vol] Canceled Normal [facility] Comment on above: Order Comment: TEST CBC AND DIFFERENTIAL WAS CANCELLED, 06/17/2019 07:38 NO SPECIMEN RECEIVED IN LAB. Performed By: #### C BCDF #### [facility] [address] [place] [address] MCV (RBC) [Entitic vol] Canceled Normal [facility] Comment on above: Order Comment: TEST CBC AND DIFFERENTIAL WAS CANCELLED, 06/17/2019 07:38 NO SPECIMEN RECEIVED IN LAB. Performed By: #### C BCDF #### [facility] [address] [place] [address] Monocytes (Bld) [#/Vol] Canceled Normal [facility] Comment on above: Order Comment: TEST CBC AND DIFFERENTIAL WAS CANCELLED, 06/17/2019 07:38 NO SPECIMEN RECEIVED IN LAB. Performed By: #### C BCDF #### [facility] [address] [place] [address] Neutrophils (Bld) [#/Vol] Canceled Normal [facility] Comment on above: Order Comment: TEST CBC AND DIFFERENTIAL WAS CANCELLED, 06/17/2019 07:38 NO SPECIMEN RECEIVED IN LAB. Performed By: #### C BCDF #### [facility] [address] [place] [address] Neutrophils/100 WBC (Bld) Canceled Normal [facility] Comment on above: Order Comment: TEST CBC AND DIFFERENTIAL WAS CANCELLED, 06/17/2019 07:38 NO SPECIMEN RECEIVED IN LAB. Performed By: #### C BCDF #### [facility] [address] [place] [address] Nucleated RBC/100 WBC (Bld) [Ratio] Canceled Normal [facility] Comment on above: Order Comment: TEST CBC AND DIFFERENTIAL WAS CANCELLED, 06/17/2019 07:38 NO SPECIMEN RECEIVED IN LAB. Performed By: #### C BCDF #### [facility] [address] [place] [address] Platelets (Bld) [#/Vol] Canceled Normal [facility] Comment on above: Order Comment: TEST CBC AND DIFFERENTIAL WAS CANCELLED, 06/17/2019 07:38 NO SPECIMEN RECEIVED IN LAB. Performed By: #### C BCDF #### [facility] [address] [place] [address] RBC (Bld) [#/Vol] Canceled Normal [facility] Comment on above: Order Comment: TEST CBC AND DIFFERENTIAL WAS CANCELLED, 06/17/2019 07:38 NO SPECIMEN RECEIVED IN LAB. Performed By: #### C BCDF #### [facility] [address] [place] [address] WBC (Bld) [#/Vol] Canceled Normal [facility] Comment on above: Order Comment: TEST CBC AND DIFFERENTIAL WAS CANCELLED, 06/17/2019 07:38 NO SPECIMEN RECEIVED IN LAB. Performed By: #### C BCDF #### [facility] [address] [place] [address] COAGULATION SCREENon 019 aPTT Coag (Bld) [Time] 44 s High 28 - 38 [facility] Comment on above: Result Comment: THE APTT IS NO LONGER USED FOR MONITORING UNFRACTIONATED HEPARIN THERAPY. FOR MONITORING HEPARIN THERAPY, USE THE HEPARIN ASSAY. Performed By: #### C OAGS #### [facility] [address] [place] [address] INR Coag (PPP) [Relative time] 1.2 {INR} High 0.9 - 1.1 [facility] Comment on above: Performed By: #### C OAGS #### [facility] [address] [place] [address] PT Coag (PPP) [Time] 13.6 s High 9.7 - 12.7 [facility] Comment on above: Performed By: #### C OAGS #### [facility] [address] [place] [address] COMPREHENSIVE PANELon 2018 Albumin [Mass/Vol] 4.1 g/dL Normal 3.4 - 5.0 [facility] Comment on above: Performed By: #### C MP #### [facility] [address] [place] [address] ALP [Catalytic activity/Vol] 566 U/L High 33 - 120 [facility] Comment on above: Performed By: #### C MP #### [facility] [address] [place] [address] ALT [Catalytic activity/Vol] 311 U/L High 10 - 52 [facility] Comment on above: Result Comment: Soni ents treated with Sulfasalazine may generate falsely decreased results for ALT. Performed By: #### C MP #### [facility] [address] [place] [address] Anion gap [Moles/Vol] 15 mmol/L Normal 10 - 20 [facility] Comment on above: Performed By: #### C MP #### [facility] [address] [place] [address] AST [Catalytic activity/Vol] 84 U/L High 9 - 39 [facility] Comment on above: Performed By: #### C MP #### [facility] [address] [place] [address] Bilirubin [Mass/Vol] 1.0 mg/dL Normal 0.0 - 1.2 [facility] Comment on above: Performed By: #### C MP #### [facility] [address] [place] [address] Calcium [Mass/Vol] 9.7 mg/dL Normal 8.6 - 10.6 [facility] Comment on above: Performed By: #### C MP #### [facility] [address] [place] [address] Chloride [Moles/Vol] 104 mmol/L Normal 98 - 107 [facility] Comment on above: Performed By: #### C MP #### [facility] [address] [place] [address] Creatinine [Mass/Vol] 0.76 mg/dL Normal 0.50 - 1.30 [facility] Comment on above: Performed By: #### C MP #### [facility] [address] [place] [address] GFR- AM. >60 Normal >60 [facility] Comment on above: Result Comment: CALC ULATIONS OF ESTIMATED GFR ARE PERFORMED USING THE MDRD STUDY EQUATION FOR THE IDMS-TRACEABLE CREATININE METHODS. CLIN CHEM 2007;53:766-72 Performed By: #### C MP #### [facility] [address] [place] [address] GFR-NON AM. >60 Normal >60 [facility] Comment on above: Performed By: #### C MP #### [facility] [address] [place] [address] Glucose [Mass/Vol] 144 mg/dL High 74 - 99 [facility] Comment on above: Performed By: #### C MP #### [facility] [address] [place] [address] HCO3 (Bld) [Moles/Vol] 24 mmol/L Normal 21 - 32 [facility] Comment on above: Performed By: #### C MP #### [facility] [address] [place] [address] Potassium [Moles/Vol] 3.9 mmol/L Normal 3.5 - 5.3 [facility] ([facility] Comment on above: Performed By: #### C MP #### [facility] [id number] [place] [address] Protein [Mass/Vol] 6.5 g/dL Normal 6.4 - 8.2 [facility] Comment on above: Performed By: #### C MP #### [facility] [address] [place] [address] Sodium [Moles/Vol] 139 mmol/L Normal 136 - 145 [facility] Comment on above: Performed By: #### C MP #### [facility] [address] [place] [address] Urea nitrogen [Mass/Vol] 4 mg/dL Low 6 - 23 [facility] Comment on above: Performed By: #### C MP #### [facility] [address] [place] [address] Albumin [Mass/Vol] Canceled Normal [facility] Comment on above: Order Comment: TEST COMPREHENSIVE PANEL WAS CANCELLED, 06/17/2019 07:38 NO SPECIMEN RECEIVED IN LAB. Performed By: #### C MP #### [facility] [address] [place] [address] ALP [Catalytic activity/Vol] Canceled Normal [facility] Comment on above: Order Comment: TEST COMPREHENSIVE PANEL WAS CANCELLED, 06/17/2019 07:38 NO SPECIMEN RECEIVED IN LAB. Performed By: #### C MP #### [facility] [address] [place] [address] ALT [Catalytic activity/Vol] Canceled Normal [facility] Comment on above: Order Comment: TEST COMPREHENSIVE PANEL WAS CANCELLED, 06/17/2019 07:38 NO SPECIMEN RECEIVED IN LAB. Result Comment: Soin ents treated with Sulfasalazine may generate falsely decreased results for ALT. Performed By: #### C MP #### [facility] [address] [place] [address] Anion gap [Moles/Vol] Canceled Normal [facility] Comment on above: Order Comment: TEST COMPREHENSIVE PANEL WAS CANCELLED, 06/17/2019 07:38 NO SPECIMEN RECEIVED IN LAB. Performed By: #### C MP #### [facility] [address] [place] [address] AST [Catalytic activity/Vol] Canceled Normal [facility] Comment on above: Order Comment: TEST COMPREHENSIVE PANEL WAS CANCELLED, 06/17/2019 07:38 NO SPECIMEN RECEIVED IN LAB. Performed By: #### C MP #### [facility] [address] [place] [address] Bilirubin [Mass/Vol] Canceled Normal [facility] Comment on above: Order Comment: TEST COMPREHENSIVE PANEL WAS CANCELLED, 06/17/2019 07:38 NO SPECIMEN RECEIVED IN LAB. Performed By: #### C MP #### [facility] [address] [place] [address] Calcium [Mass/Vol] Canceled Normal [facility] Comment on above: Order Comment: TEST COMPREHENSIVE PANEL WAS CANCELLED, 06/17/2019 07:38 NO SPECIMEN RECEIVED IN LAB. Performed By: #### C MP #### [facility] [address] [place] [address] Chloride [Moles/Vol] Canceled Normal [facility] Comment on above: Order Comment: TEST COMPREHENSIVE PANEL WAS CANCELLED, 06/17/2019 07:38 NO SPECIMEN RECEIVED IN LAB. Performed By: #### C MP #### [facility] [address] [place] [address] Creatinine [Mass/Vol] Canceled Normal [facility] Comment on above: Order Comment: TEST COMPREHENSIVE PANEL WAS CANCELLED, 06/17/2019 07:38 NO SPECIMEN RECEIVED IN LAB. Performed By: #### C MP #### [facility] [address] [place] [address] GFR- AM. Canceled Normal [facility] Comment on above: Order Comment: TEST COMPREHENSIVE PANEL WAS CANCELLED, 06/17/2019 07:38 NO SPECIMEN RECEIVED IN LAB. Result Comment: CALC ULATIONS OF ESTIMATED GFR ARE PERFORMED USING THE MDRD STUDY EQUATION FOR THE IDMS-TRACEABLE CREATININE METHODS. CLIN CHEM 2007;53:766-72 Performed By: #### C MP #### [facility] [address] [place] [address] GFR-NON AM. Canceled Normal [facility] Comment on above: Order Comment: TEST COMPREHENSIVE PANEL WAS CANCELLED, 06/17/2019 07:38 NO SPECIMEN RECEIVED IN LAB. Performed By: #### C MP #### [facility] [address] [place] [address] Glucose [Mass/Vol] Canceled Normal [facility] Comment on above: Order Comment: TEST COMPREHENSIVE PANEL WAS CANCELLED, 06/17/2019 07:38 NO SPECIMEN RECEIVED IN LAB. Performed By: #### C MP #### [facility] [address] [place] [address] HCO3 (Bld) [Moles/Vol] Canceled Normal [facility] Comment on above: Order Comment: TEST COMPREHENSIVE PANEL WAS CANCELLED, 06/17/2019 07:38 NO SPECIMEN RECEIVED IN LAB. Performed By: #### C MP #### [facility] [address] [place] [address] Potassium [Moles/Vol] Canceled Normal [facility] Comment on above: Order Comment: TEST COMPREHENSIVE PANEL WAS CANCELLED, 06/17/2019 07:38 NO SPECIMEN RECEIVED IN LAB. Performed By: #### C MP #### [facility] [address] [place] [address] Protein [Mass/Vol] Canceled Normal [facility] Comment on above: Order Comment: TEST COMPREHENSIVE PANEL WAS CANCELLED, 06/17/2019 07:38 NO SPECIMEN RECEIVED IN LAB. Performed By: #### C MP #### [facility] [address] [place] [address] Sodium [Moles/Vol] Canceled Normal [facility] Comment on above: Order Comment: TEST COMPREHENSIVE PANEL WAS CANCELLED, 06/17/2019 07:38 NO SPECIMEN RECEIVED IN LAB. Performed By: #### C MP #### [facility] [address] [place] [address] Urea nitrogen [Mass/Vol] Canceled Normal [facility] Comment on above: Order Comment: TEST COMPREHENSIVE PANEL WAS CANCELLED, 06/17/2019 07:38 NO SPECIMEN RECEIVED IN LAB. Performed By: #### C MP #### [facility] [address] [place] [address] Daily Progress Note-Gastroen terologyon 06-17-2019 Daily Progress Note-Gastroenterology Service: Gastroenterology Subjective Data: AGA ADAN is a 54 year old Male who is Hospital Day # 2. Additional Information: No acute events overnight. Patient continues to complain of 10/10 epigastric pain. States that pain medications do not help very long. Patient nauseous earlier in the AM, but feels less nauseous at this time. He would like to eat more solid food. He states that he would like to get his biopsy done as soon as possible and go home. Denies vomiting, diarrhea, bloody stools, chest pain, SOB. Objective Data: Objective Information: T PRBPSpO2 [id number]% Date/Time06/17 6: 6: 6: 6: 6:39 Range(36C - 37.2C ) (69 - 78 ) (18 - 18 ) (161 - 176 )/ (79 - 87 ) (98% - 98% ) Highest temp of 37.2 C was recorded at 06/16 22:16 Pain reported at 06/17 12:12: 9 = Severe Physical Exam: Constitutional: Well-developed man, in no acute distress, resting comfortably in bed, making phone calls Eyes: EOMI, PERRL, clear sclera ENMT: MMM, no oral lesions Head/Neck: Atraumatic, normocephalic Respiratory/Thorax: CTAB, no increased WOB, no wheezes, crackles, or rhonchi Cardiovascular: RRR, appreciable S1/S2, no murmurs, rubs, or gallops Gastrointestinal: Soft, non-distended, tenderness to palpation in the epigastric region, BS+ Extremities: Cast over RLE, no edema Neurological: A&O x3, CN 2-12 intact, 5/5 strength in BUE, 4/5 strength in BLE Psychological: Appropriate mood and behavior, somewhat depressed Skin: No generalized rash or jaundice Medication: Medications: Continuous Medications ------- 1. Lactated Ringers Infusion: 1000 mL IntraVenous Scheduled Medications ------- 1. Aspirin Chewable: 81 mg Oral Daily 2. Atenolol: 50 mg Oral Daily 3. buPROPion (WELLBUTRIN XL) Extended Release (24 hour): 150 mg Oral Every 24 Hours 4. Calcium 500 mg - Vitamin D 200 Units: 1 tablet(s) Oral Daily 5. Cyanocobalamin: 1000 microgram(s) Oral Daily 6. Enoxaparin SubCutaneous: 40 mg SubCutaneous Every 24 Hours 7. Fluticasone 50 microgram/ Nasal Inhalation: 1 spray(s) Each Nostril Daily 8. Folic Acid: 1 mg Oral Daily 9. Gemfibrozil: 600 mg Oral 2 Times a Day 10. Insulin Lispro Mild Corrective Scale: unit(s) SubCutaneous 3 Times a Day Before Meals 11. Pantoprazole: 40 mg Oral Daily 12. QUEtiapine: 100 mg Oral Daily 13. Thiamine: 100 mg Oral Daily PRN Medications ------- 1. Acetaminophen: 650 mg Oral Every 4 Hours 2. Dextrose 50% in Water Injectable: 25 gram(s) IntraVenous Push Every 15 Minutes 3. Glucagon Injectable: 1 mg IntraMuscular Every 15 Minutes 4. HYDROmorphone Injectable: 0.2 mg IntraVenous Push Every 6 Hours 5. Mometasone 220 microgram/ Inhalation: 1 inhalation Inhalation Every 12 Hours 6. Ondansetron Injectable: 4 mg IntraVenous Push Every 6 Hours 7. oxyCODONE Immediate Release: 5 mg Oral Every 4 Hours Recent Lab Results: Results: I have reviewed these laboratory results: Glucose_POCT 17-Jun-2019 12:38:00 ResultValue Glucose-POCT 142 H Coagulation Screen 17-Jun-2019 07:42:00 ResultValue Prothrombin Time, Plasma 13.6 H International Normalized Ratio, Plasma 1.2 H Activated Partial Thromboplastin Time 44 H Complete Blood Count 17-Jun-2019 07:42:00 ResultValue White Blood Cell Count 4.1 L Nucleated Erythrocyte Count 0.0 Red Blood Cell Count 3.52 L HGB 10.4 L HCT 32.3 L MCV 92 MCHC 32.2 PLT 281 RDW-CV 14.6 H Comprehensive Metabolic Panel 17-Jun-2019 07:42:00 ResultValue Glucose, Serum 144 H NA 139 K 3.9 CL 104 Bicarbonate, Serum 24 Anion Gap, Serum 15 BUN 4 L CREAT 0.76 GFR-Non >60 GFR- >60 Calcium, Serum 9.7 ALB 4.1 ALKP 566 H T Pro 6.5 T Bili 1.0 Alanine Aminotransferase, Serum 311 H Aspartate Transaminase, Serum 84 H Lipase, Serum 17-Jun-2019 07:42:00 ResultValue Lipase, Serum 153 H Assessment and Plan: Assessment: Aga Adan is a 54 yo M with a PMH of HTN, DLD, CAD, ANYA (not on CPAP), DM II, chronic pancreatitis (c/b uncinate process lesion), GERD, depression/anxiety, and EtOH abuse who presents as a transfer from [facility] for acute pancreatitis with enlarging uncinate process complex cystic lesion seen on 06/14 MRCP. DDx includes walled-off necrosis/pseudocyst vs IPMN vs pancreatic cancer. Acute on chronic pancreatitis seems to be improving as lipase is downtrending and patient is hungry and wants to eat. Will continue to treat pancreatitis and further characterize pancreatic lesion with biopsy. Patient is HDS and overall well appearing, so does not require emergent procedure over the weekend. Will plan for EUS with possible ERCP on Wednesday. #Complex pancreatic cyst #Acute on chronic pancreatitis - enlarging complex cyst in uncinate process over past 6 months seen on 06/14 MRI (images in PACS) - ddx pseudocyst vs IPMN vs pancreatic cancer vs biliary stricture vs external biliary compression - CEA from OSH was 0.5 on 06/14 - CA 19-9 reportedly normal in the past, but could not find in recent record so will add on to labs - Lipase trending down at OSH (1811 --> 1607 --> 540)-- now 153 today - HCV and HBV negative; TG 187 - Resume clear liquid diet-- advance as tolerated - 100 cc/hr NS-> will switch to LR today - Will trial oral pain regimen with oxycodone 5mg and acetaminophen 650mg PRN q4, with IV 0.2 mg dilaudid spaced to q6 PRN-- will continue to space out or discontinue dilaudid tomorrow - Incentive spirometry - EUS +/- ERCP planned for 06/19 or 06/20 #Cholestasis/transaminiti s - Downtrending - Alk phos still elevated to 566, bili now normal - intra- and extra-hepatic biliary dilation seen on MRCP-- likely mass effect vs stricture #HTN - BP 176/87 upon admission - resume atenolol 50 mg - previous med rec includes verapamil 40 mg; patient denies taking at home - patient currently asymptomatic; can consider restarting verapamil if persistently elevated #DLD - lipid panel from OSH: chol 233, LDL 159, HDL 37, TG 187 - continue home gemfibrozil 600 mg BID - hold home rosuvastatin 20 mg in setting of acute LFT elevation #CAD - no PCI/CABG; medically managed - continue ASA 81 mg #DM II - Holding home metformin 1000 BID - Mild SSI while inpatient #Anxiety/depression - continue home seroquel 100 mg and bupropion 150 mg F: 100 cc/hr LR E: replete PRN N: clear liquid diet; advance as tolerated A: PIV P: DVT - SQ lovenox; GI - protonix 40 mg Code Status: FULL CODE (confirmed upon admission) Octavia Kenyon MD Internal Medicine/Pediatrics PGY3 Pager: [phone] Signature/Cosignature/Att estation: Note Completion: I am a: Resident/Fellow Attending AttestationI saw and evaluated the patient. I personally obtained the ko and critical portions of the history and physical exam or was physically present for ko and critical portions performed by the resident/fellow. I reviewed the resident/fellows documentation and discussed the patient with the resident/fellow. I agree with the resident/fellows medical decision making as documented in the note. I personally evaluated the patient [id number] Comments/ Additional Findings Please see accompanying H&P for staff attestation and plan of care. Electronic Signatures: Orin Cunha) (Signed 24-Jun-2019 14:40) Authored: Signature/Cosignature/Att estation Co-Signer: Subjective Data, Objective Data, Assessment and Plan, Signature/Cosignature/Att estation Octavia Kenyon (Resident)) (Signed 17-Jun-2019 14:54) Authored: Service, Subjective Data, Objective Data, Assessment and Plan, Signature/Cosignature/Att estation Last Updated: 24-Jun-2019 14:40 by Orin Cunha) Normal [facility] Discharge [id number] 06-17- 019 Discharge Profile2 Discharge Orders: Anticipated Discharge Date: Anticipated Discharge [id number] Problem List: Additional Dx: Pancreatitis: Catalog Name: Acute pancreatitis without necrosis or infection, unspecified Prelim Disch Dx: Pancreatic mass: Catalog Name: Other specified diseases of pancreas Hospital Providers: Provider RoleProvider Name Orin Madera Activity: activity as tolerated. Weight-bearing Instructions: no weight-bearing right leg NWB R LE for chronic non healing fracture. Diet: Dietlow fat Labs 1: Lab Test(s)LFT Date To Be Drawn05/28/2019 Call Results ToDr. Alba Tena ([facility]) Fax Results [phone] Lab InstructionsWalk-in lab, no appointment required. CommentsPlease draw LFTs at this visit to ensure patient has a downtrend Additional Orders: Additional Instructions - Please follow-up with your PCP in regards to your previous injuries including RLE fracture and L pelvis injury as you may benefit from rehabilitation. - Please follow-up with your PCP for follow-up liver function tests (LFTs) in 5-7 days (please call PCP to schedule follow-up visit and ask to have Hepatic Function Panel" ordered) - Please follow-up with your PCP to make sure you are up to date with your age-recommended cancer screening including colonoscopy and low-dose CT chest (given ongoing tobacco use) - Please follow-up with your director of database marketing for further evaluation of your pancreas - Please follow a diet low in fat and high in fruits and vegetables and maintain adequate PO hydration - Please abstain from drinking any alcoholic beverage - Please abstain from using tobacco products including cigarettes and cigars Call Provider If (Homegoing Patients): Breathing faster than normal. Breathing harder than normal or having retractions. Temperature is greater than 102 degrees. Chills. Drinking less than normal. Acting very sleepy and difficult to awaken. Vomiting (throwing up) and not able to eat or drink for 12 hours. 3 or more loose, watery bowel movements in 24 hours (diarrhea). Any new concerning symptoms. Heart Failure: Patient Instructions: - CALL 911 IF YOU HAVE ANY OF THE SIGNS AND SYMPTOMS OF HEART FAILURE: 1. Chest pain 2. Significant Shortness of breath 3. Fainting. - Notify your physician immediately if you have shortness of breath; weight gain of 3 lbs. or more; fatigue and loss of energy; swelling of lower extremities or abdomen; dizziness or fainting; change of appetite; and frequent coughing. - Patient received Living With Heart Failure book. - Daily weight on the same scale, same time after voiding and before eating. - Maintain daily weight log. Activity: - Balance activity with rest, gradually increase your activity as tolerated. - Exercise as prescribed by your physician. Hospital Course (Home Care/Gold Form): Hospital Course: Hospital Course: include significant abnormal lab values Aga Adan is a 54 yo M with a PMH of HTN, DLD, CAD, ANAY (not on CPAP), DM II, chronic pancreatitis (c/b uncinate process lesion), GERD, depression/anxiety, and EtOH abuse who presents as a transfer from [facility] for acute pancreatitis with enlarging uncinate process complex cystic lesion seen on 06/14 MRCP. He was transferred to [facility] for EUS +/- ERCP which occurred on 06/19. Biopsies were taken though most likely patient has a pancreatic pseudocyst based on imaging from the procedure. He was encouraged to follow with a pancreas specialist in [place], [place] (Dr. Peyman Martinez, ) for further discussion of his biopsy report. He also had acute on chronic pancreatitis during this admission, which resolved after fluids and pain control. He was able to tolerate a normal low fat diet on discharge. All home medications were resumed including atenolol for his blood pressure. He was instructed to follow up with his PCP to discuss blood pressure control and follow up on LFTs in one week at his PCP office. Provider FINAL REVIEW of Orders: Final Review: Final Review of Medication Reconciliation and Orders Completedby Physician Reviewing ProviderIliana Jackson MD (Resident) at 19-Jun-2019 16:23:52 Appointments: Follow-Up Appointment 01: Physician/Dept/ServiceDr. Freitas (Gastroenterology [facility]) Call to Schedule inOffice requests to call you directly to schedule appointment [address] [place] [address] Phone [phone] CommentsIf you do not hear from the office within 3 business days please call the office to schedule. Follow-Up Appointment 02: Physician/Dept/Kishan. Alba Tena Primary Care Physician Call to Schedule inOffice requests you call to schedule appointment [id number] [place] [address] Phone [phone] Follow-Up Appointment 03: Physician/Dept/ServiceDr. Elmo Martinez (Pancreas Specialist) [facility] Phone [phone] CommentsPlease call the above number to schedule your appointment Electronic Signatures: Tiffanie Denise (Resident)) (Signed 19-Jun-2019 15:46) Authored: Discharge Orders, Provider FINAL REVIEW of Orders Octavia Kenyon (Resident)) (Signed 17-Jun-2019 16:14) Authored: Discharge Orders, Heart Failure, Gold Form - Generator Operator Straight Bevel Gear Summary Iliana Jackson (Resident)) (Signed 19-Jun-2019 16:23) Authored: Discharge Orders, Hospital Course (Home Care/Gold Form), Provider FINAL REVIEW of Orders, Appointments Adriana Blas (PT ACC REP) (Signed 19-Jun-2019 12:41) Authored: Appointments Last Updated: 19-Jun-2019 16:23 by Iliana Jackson (Resident)) Normal [facility] EMR ADDONon 06-17-2019 ADDON CONFIRMATION REQUEST REC'D Normal [facility] Comment on above: Performed By: #### E MRAD ####NO LOCATION NEEDED GLUCOSE-POCTon 06-17-2019 Glucose [Mass/Vol] 207 mg/dL [address] Comment on above: Performed By: #### G PRACHI ####[id number] [place] [address] Glucose [Mass/Vol] 142 mg/dL [address] Comment on above: Performed By: #### G PRACHI ####[id number] [place] [address] Glucose [Mass/Vol] 161 mg/dL [address] Comment on above: Performed By: #### G PRACHI #### [facility] [address] [place] [address] History and Physicalon 06-17 History and Physical History of Present Illness: Admission Reason: Pancreatic lesion HPI: Aga Adan is a 54 yo M with a PMH of HTN, DLD, CAD, ANYA (not on CPAP), chronic pancreatitis (c/b uncinate process lesion), GERD, depression/anxiety, and EtOH abuse who presents as a transfer from [facility] for acute pancreatitis with enlarging uncinate process lesion. Per the patient, he was originally diagnosed with a pancreatic cyst back in October 2018 after a bout of pancreatitis. He was told to follow-up in 6 months with an MRI that demonstrated a persistent complex cystic lesion in the uncinate process. CEA and CA 19-9 at the time were within normal limits. He had another bout of pancreatitis in February, then on 06/06 he developed sudden-onset central abdominal pain that was similar to his previous bouts of pancreatitis. He describes the pain as similar to a muscle spasm or a "tooth ache," however the pain was worse than any of his prior episodes. It was central, but radiated to his R back. Applying pressure with his hand or a pillow to his abdomen reduced the pain, stating that he could "feel the juices moving." He tried taking small sips of water and transitioned to a clear liquid diet, but the pain persisted and was associated with nausea + dry heaves. He had some leftover oxycodone from a recent pelvic fracture which he took, but this only dulled the pain. He noticed dark coca-cola colored urine, which he had never experienced before, and had several bouts of yellow, liquid, non-bloody diarrhea. After the pain progressive worsened over the next three days, he presented to [place] on 06/09. He was found to have a lipase > 2200, elevated LFTs, and was started on IV fluids and pain control, but after the pain persisted, he was transferred to [facility] on 06/13. There, his lipase and LFTs continued to trend down (lipase 1811 --> 1539, AST 539 --> 232, ALT 642 --> 509, bili 2.2 --> 1.4). An MRI/MRCP was performed (06/14) that demonstrated intra- and extra-hepatic biliary dilation, mild dilation of the pancreatic duct (4 mm), edema at the uncinate process and pancreatic head, and a complex cystic lesion in the uncinate process that communicated with the main pancreatic duct (2.2 x 1.8 cm) with mild mural thickening of the descending colon. The complex cyst was increased in size from an MRI obtained in 03/13, and the patient was subsequent transferred to [facility] for further management. Upon arrival to [facility], vital signs were significant for BP 176/87, HR 69, RR 18, O2 98% on RA, and T 37.2. He admitted to persistent central abdominal pain with radiation to the R back, but denied any fevers/chills or nausea/vomiting. He notes that he was started on a clear liquid diet at the OSH, which was followed by immediate loose stools. He admits to pain with deep breaths due to his abdominal pain, but denies any SOB, orthopnea, PND, palpitations, or chest pain. Of note, the patient was recently treated for a pelvic fracture + RLE fracture 4 weeks ago after falling down the stairs. He has been in a chronic cast for two years d/t an unhealing fracture in his RLE after slipping on the ice. He was treated with tramadol and oxycodone at the time for his pelvic fracture. PCP: Dr. Alba Tena ([facility]) Luggage Attendant: Dr. Freitas ([facility]) ROS: A complete 10 point review of systems was obtained. Please see HPI for pertinent positives and negatives. All other systems reviewed were found non-contributory. PMH: as listed above - first diagnosed with pancreatitis 5 years ago; was told that it was d/t his EtOH use + elevated TG (reportedly > 1500) - underwent cholecystectomy in 2017 - has had 12 bouts of acute pancreatitis in the past 5 years PSH: - cholecystectomy (2017) - L knee + hip replacement - multiple surgeries on ankles, shoulder - laminectomy FH: - mom = HTN, DLD - dad = HTN, [place] - brother = HTN, DLD SH: - current, everyday smoker; smokes 1 cigar/day for 4 years + chews smokeless tobacco - 1 can/week - drinks two 12 ounce IPA beers/night (increased use after going through his divorce several years ago) - denies illicit drug use; notes he use to use edible MJ - lives with parents - 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; has been on disability for several years related to his chronic fracture - POA = Kenna Adan (mom) [phone], NKDA Comorbidities: Comorbid Conditionshypertension Allergies: No Known Allergies: Medications Prior to Admission: gemfibrozil 600 mg oral tablet: 1 tab(s) orally 2 times a day rosuvastatin 20 mg oral tablet: 1 tab(s) orally once a day atenolol 50 mg oral tablet: 1 tab(s) orally once a day Flonase 50 mcg/inh nasal spray: 1 spray(s) nasal once a day SEROquel 100 mg oral tablet: 1 tab(s) orally once a day buPROPion 150 mg/24 hours (XL) oral tablet, extended release: 1 tab(s) orally every 24 hours aspirin 81 mg oral tablet: 1 tab(s) orally once a day folic acid 1 mg oral tablet: 1 tab(s) orally once a day Vitamin B-12 1000 mcg oral tablet: 1 tab(s) orally once a day Calcium 500+D oral tablet, chewable: 1 tab(s) orally once a day Protonix 40 mg oral delayed release tablet: 1 tab(s) orally once a day Vitamin D3 5000 intl units (125 mcg) oral capsule: 1 cap(s) orally once a day fluticasone 100 mcg/inh inhalation powder: 1 puff(s) inhaled 2 times a day, As Needed. Objective: Objective Information: T PRBPSpO2 [id number]% Date/Time06/16 22: 22: 22: 22: 22:16 Range(37.2C - 37.2C ) (69 - 69 ) (18 - 18 ) (176 - 176 )/ (87 - 87 ) (98% - 98% ) Highest temp of 37.2 C was recorded at 06/16 22:16 Pain reported at 06/16 22:16: 8 = Severe Physical Exam: Constitutional: Well-developed, in no acute distress, resting comfortably in bed Eyes: EOMI, PERRL, clear sclera ENMT: MMM, no oral lesions Head/Neck: Atraumatic, normocephalic Respiratory/Thorax: CTAB, no increased WOB, no wheezes, crackles, or rhonchi Cardiovascular: RRR, appreciable S1/S2, no murmurs, rubs, or gallops Gastrointestinal: Soft, non-distended, tenderness to palpation in the epigastric region + LUQ Musculoskeletal: Full ROM, 4/5 strength in BLE, 5/5 strength in BUE Extremities: Cast over RLE, no edema Neurological: A&O x3, CN 2-12 intact, 5/5 strength in BUE, 4/5 strength in BLE Psychological: Appropriate mood and behavior Skin: No generalized rash or jaundice Medications: Medications: Continuous Medications ------- 1. Sodium Chloride 0.9% Infusion: 1000 mL IntraVenous Scheduled Medications ------- 1. Aspirin Chewable: 81 mg Oral Daily 2. Atenolol: 50 mg Oral Daily 3. buPROPion (WELLBUTRIN XL) Extended Release (24 hour): 150 mg Oral Every 24 Hours 4. Calcium 500 mg - Vitamin D 200 Units: 1 tablet(s) Oral Daily 5. Cyanocobalamin: 1000 microgram(s) Oral Daily 6. Enoxaparin SubCutaneous: 40 mg SubCutaneous Every 24 Hours 7. Fluticasone 50 microgram/ Nasal Inhalation: 1 spray(s) Each Nostril Daily 8. Folic Acid: 1 mg Oral Daily 9. Gemfibrozil: 600 mg Oral 2 Times a Day 10. Pantoprazole: 40 mg Oral Daily 11. QUEtiapine: 100 mg Oral Daily 12. Thiamine: 100 mg Oral Daily PRN Medications ------- 1. HYDROmorphone Injectable: 0.2 mg IntraVenous Push Every 4 Hours 2. Mometasone 220 microgram/ Inhalation: 1 inhalation Inhalation Every 12 Hours Radiology Results: Results: MRI/MRCP (06/14): - intra and extra hepatic biliary dilation (CBD 1.0 cm, CHD 1.0 cm); no filling defect - mild dilation of pancreatic duct (4 mm) suggestive of chronic pancreatitis - small edema at pancreatic tail - edema of uncinate process and pancreatic head - complex cystic lesion in uncinate process communicating with main pancreatic duct (2.2 x 1.8 cm) - mild mural thickening of descending colon - hepatic steatosis Assessment and Plan: Assessment: Aga Adan is a 54 yo M with a PMH of HTN, DLD, CAD, ANYA (not on CPAP), chronic pancreatitis (c/b uncinate process lesion), GERD, depression/anxiety, and EtOH abuse who presents as a transfer from [facility] for acute pancreatitis with enlarging uncinate process lesion. DDx pseudocyst vs IPMN vs pancreatic cancer vs biliary stricture vs external biliary compression. MRCP (06/14) with complex cystic lesion in uncinate process. Plan for ERCP + EUS with GI. #Complex pancreatic cyst #Acute on chronic pancreatitis - enlarging complex cyst in uncinate process over past 6 months - ddx pseudocyst vs IPMN vs pancreatic cancer vs biliary stricture vs external biliary compression - CEA + CA 19-9 from OSH wnl - lipase trending down at OSH (1811 --> 1607 --> 540) - HCV and HBV negative; TG 187 - GI consult in AM; patient would benefit from ERCP + EUS - resume clear liquid diet; NPO at MN - 100 cc/hr NS - pain regimen = IV 0.2 mg dilaudid q4h PRN - incentive spirometry #HTN - BP 176/87 upon admission - resume atenolol 50 mg - previous med rec includes verapamil 40 mg; patient denies taking at home - patient currently asymptomatic; can consider restarting verapamil if persistently elevated #DLD - lipid panel from OSH: chol 233, LDL 159, HDL 37, TG 187 - continue home gemfibrozil 600 mg BID - hold home rosuvastatin 20 mg in setting of acute LFT elevation #CAD - no PCI/CABG; medically managed - continue ASA 81 mg #Anxiety/depression - continue home seroquel 100 mg and bupropion 150 mg F: 100 cc/hr NS E: replete PRN N: clear liquid diet; NPO at MN A: PIV P: DVT - SQ lovenox; GI - protonix 40 mg Code Status: FULL CODE (confirmed upon admission) Miranda Perez, PGY-2 [id number] Signatures/Attestation/Ce rtification: Note Completion: I am a: Resident/Fellow Attending AttestationI saw and evaluated the patient. I personally obtained the ko and critical portions of the history and physical exam or was physically present for ko and critical portions performed by the resident/fellow. I reviewed the resident/fellows documentation and discussed the patient with the resident/fellow. I agree with the resident/fellows medical decision making as documented in the note. I personally evaluated the patient [id number] Comments/ Additional Findings Patient officially seen and staffed with the [facility] team during morning rounds on 06/17. Patient with acute on chronic alcoholic pancreatitis c/b a cystic lesion, presumed to be a pseudocyst, dating back to at least October 2018. He was told to f/u in 6 months with an MRI. He then had acute attack in February. Repeat imaging shows persistent complex cystic lesion. CA 19-9 was checked and was WNL. Presents now with another attack with imaging showing mildly dilated CBD and PD and persistent complex cystic lesion. Of note, patient with chronic pain form a RLE fracture a year ago c/b pelvic fracture 4 weeks ago s/p mechanical fall, on chronic opioids. He continues to drink alcohol, down to about 2 beers/night along with ongoing tobacco use. Need to get most recent MRI images. Suspect that this cyst is a pseudocyst/WON. Recommend eventual EUS to further evaluate the cyst and ampullary area. LFTs trending down and likely from acute on chronic pancreatitis Will continue supportive care for now Patient strongly encouraged to stop drinking alcohol and quit smoking in order to prevent further pancreatic damage. Will send full chronic pancreatitis lab eval to evaluate for endocrine/exocrine insufficiency and vitamin deficiency. He should be followed closely as OP by a Pancreatologist. Over 70 minutes were spent with this patient. Greater than 50% of this time was spent in counselling and/or coordination of care. It has been a pleasure to participate in the care of this patient. Please call with any further questions or concerns. Orin Cunha MD GI Attending Provider Inpatient Certification StatementI certify this patients need for inpatient care based on the above documentation including; the order to admit as inpatient, the anticipated length of stay, diagnosis, problem list and plan of care, and discharge plan. Admission Order - View OnlyCurrent Admission Order. Admit to Inpatient Adult [facility] Admitting Diagnosis, K85.90 Pancreatitis Admitting Service, General Internal Medicine Level of Care, Med/Surg Miranda Perez Electronic Signatures: Orin Cunha () (Signed 24-Jun-2019 15:10) Authored: History of Present Illness, Signatures/Attestation/Ce rtification Co-Signer: Signatures/Attestation/Ce rtification Octavia Kenyon ( (Resident)) (Signed 17-Jun-2019 14:38) Authored: Signatures/Attestation/Ce rtification Miranda Perez ( (Resident)) (Signed 17-Jun-2019 02:36) Authored: History of Present Illness, Comorbidities, Allergies, Medications Prior to Admission, Objective, Assessment and Plan, Signatures/Attestation/Ce rtification Last Updated: 24-Jun-2019 15:10 by Orin Cunha) Normal [facility] LACTATEon 06-17-2019 Lactate [Moles/Vol] Canceled Normal [facility] Comment on above: Order Comment: TEST LACTATE WAS CANCELLED, 06/17/2019 07:38 NO SPECIMEN RECEIVED IN LAB. Result Comment: Candace puncture immediately after or during the administration of Metamizole may lead to falsely low results. Testing should be performed immediately prior to Metamizole dosing. Performed By: #### L ACT #### [facility] [address] [place] [address] LIPASEon 06-17-2019 Lipase [Catalytic activity/Vol] 153 U/L High 9 - 82 [facility] Comment on above: Result Comment: Candace puncture immediately after or during the administration of Metamizole may lead to falsely low results. Testing should be performed immediately prior to Metamizole dosing. Performed By: #### L IPAS #### [facility] [address] [place] [address] Patient Profile - Adult v2on 06-17-2019 Patient Profile - Adult v2 Profile: Initial Info: How to be AddressedMark Spoken Language PreferredEnglish Are you currently using the Personal Electronic Health Record or [employer] Are you interested in learning more about [employer] for the management of your healthdeclined Stated Reason for Admissionpancreatitis Wants Family/Rep Notified of Admissionno Notify PCPnotify PCP Informed of Patient Visiting Rightsyes Arrived Fromhospital Patient Belongingsremains with patient Patient Belongings Remaining with Patientclothing Medications Brought to Hospitalno General Health: Weight in kg83.9 kilogram(s) Weight in [id number] pound(s) Height in feet5 feet Height in inches7 inch(es) Height in cm170.1 centimeter(s) BMI (kg/m2)28.997 square meter Weight Methodstated Scale Typestanding Height Methodstated [facility] Based Care: How would you like to participate in your carekeep me informed What is the number one concern for you during this hospitalizationFinances and getting home What is the most important thing we can do to support you during this hospitalizationkeep me informed Is there anything we need to know to best care for youThat I worry about my parents and want to get back home as soon as possible. Substance: Current or Former Substance Use never: e-Cigarette/Vaping, Street Drugs YES: Cigarette/Tobacco, Alcohol Tobacco Cessation Education (provide if tobacco use within the last 12 mos) patient declined Alcohol Use Statuscurrent alcohol Alcohol Amount1-2 drinks Alcohol Frequency2-4 times/month Alcohol Typebeer Health Mgmt: Symptoms/Conditions Managed at Homeendocrine; cardiovascular Cardiovascular Symptoms/Conditionshypert ension Cardiovascular Management Strategiesmedication therapy Cardiovascular Managementmanaged Endocrine Management Strategiesmedication therapy Endocrine Managementmanaged Endocrine Symptoms/Conditionsdiabet es Relationship/Environ: Primary Source of Support/Comfortparent Lives Withparent(s) Living Arrangementshouse Resource/Environmental Concernsfinancial Financial Concernsunemployed; insurance, none [facility] Anticipated at Transitionnone Significant IndicatorsComplete Information Review: Allergies, Home Meds and Significant Events have been Reviewed and Verified with Patient/Familyyes ALLERGY, INTOLERANCE, ADVERSE EVENT: Allergies: No Known Allergies: Active Electronic Signatures: Alex Guillermo (JACINTA) (Signed 16-Jun-2019 23:14) Authored: Profile, Additional Information Last Updated: 16-Jun-2019 23:14 by Alex Guillermo (JACINTA) Normal [facility] RAD OUTSIDE EXAM OVER READon 06-17-2019 RAD OUTSIDE EXAM OVER READ Patient Name: AGA ADAN STUDY: RAD OUTSIDE EXAM OVER READ; 06/16/2019 11:25 pm INDICATION: PANCREATIC LESION CYST, MRI ABD 06/14/19 From [facility]. Loaded to PACS on 06/16/19 @ 11:11pm from cd, dictation required for medical necessity, orig. dictation is not available. COMPARISON: None. ACCESSION NUMBER(S): [id number] ORDERING CLINICIAN: MIRANDA PEREZ TECHNIQUE: MRI PANCREAS; Multiplanar magnetic resonance images of the abdomen were obtained without IV contrast. Radial thick slab T2w RARE MRCP and coronally reconstructed navigator gated high resolution 3-D T2w RESTORE MRCP with MIP reconstruction were also performed for MRCP. FINDINGS: LIVER: The liver parenchyma demonstrates mild diffusely decreased signal intensity on T1w opposed phase imaging compared to T1w inphase imaging consistent with mild fatty changes. Within the limits of a noncontrast study, no liver mass. Mild hepatomegaly measuring 20 cm superior inferiorly BILE DUCTS: The common hepatic duct is mildly dilated measuring up to 1.0 cm, with an approximately 2.3 cm stricture of the distal common bile duct. GALLBLADDER: The gallbladder is not visualized, likely status post cholecystectomy. PANCREAS: Heterogeneous T1 and T2 signal of the pancreatic parenchyma predominantly at the pancreatic head and uncinate process with adjacent inflammatory changes and wall thickening of the 2nd part of the duodenum, likely sequela of acute pancreatitis. A 2.0 x 1.9 x 2.3 cm pancreatic head cystic lesion with heterogeneous T2 signal and an approximately 1.8 x 1.1 cm T2 hypointense dependent component. The lesion is connected to the main pancreatic duct which is slightly prominent measuring up to 6 mm at the head. Mild intrahepatic biliary dilation predominantly in the left hepatic lobe. SPLEEN: Mild splenomegaly measuring up to 13.6 cm in craniocaudal dimension. ADRENAL GLANDS: Within normal limits. KIDNEYS: Small T2 hyperintense lesions in the right kidney, likely cysts. No hydronephrosis bilaterally. LYMPH NODES: Multiple prominent upper abdominal lymph nodes predominantly in the peripancreatic region, measuring up to 1.4 x 1.3 cm. ABDOMINAL VESSELS: Limited evaluation due to lack of IV contrast. No aortic aneurysmal dilation. BOWEL: No bowel dilation. PERITONEUM/RETROPERITONEU M: Trace upper abdominal ascites. BONES AND LOWER THORAX: No abnormally enhancing focal bony lesions are identified. Trace right pleural effusion IMPRESSION: 1. Limited study due to lack of IV contrast. 2. Heterogenous T1 and T2 signal of the pancreatic parenchyma predominantly at the head and uncinate process with adjacent inflammatory changes, likely acute pancreatitis. 3. A 2.0 x 1.9 x 2.3 cm pancreatic head cystic lesion connected to the main pancreatic duct with heterogeneous T2 signal and possible layering debris. Mildly dilated pancreatic duct measuring up to 6 mm at the head. While assessment is limited by lack of IV contrast and a solid component cannot be excluded, however findings more likely represent a pseudocyst in the setting of pancreatitis. 4. 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 5. Trace upper abdominal ascites. 6. Multiple mildly enlarged upper abdominal and peripancreatic lymph nodes. Follow-up MRI in 8-12 weeks is recommended. Submitted for interpretation are outside hospital CT images from [facility], bearing the patient's name and dated (available for interpretation at [facility] on 06/17/2019). These contain a creative director multiplanner multisequential MRI images without IV contrast. The report was requested for medical necessity by Dr. MIRANDA PEREZ. Please note that outside hospital CT interpretation is greatly limited by lack of technical factors, information about clinical setting, contrast timing, etc. The interpretation provided is the best possible under the circumstances but please obtain the original interpretation by the supervising radiologist/service. Electronically signed by: VALDO PARRA MD [facility] CBCon 06-16-2019 Erythrocyte distribution width (RBC) [Ratio] 15.4 % High 11.5 - 14.5 % [place], [place] Hematocrit (Bld) [Volume fraction] 29.9 % Low 40 - 52 % [place] Hemoglobin (Bld) [Mass/Vol] 10.0 g/dL Low 13 - 18 g/dL [place] Interpretation and review of laboratory results Abnormal [place] MCH (RBC) [Entitic mass] 30.1 pg 26 - 34 pg [place] MCHC (RBC) [Mass/Vol] 33.5 % 32 - 36 % [place], [place] MCV (RBC) [Entitic vol] 89.9 fL 80 - 98 fL [place] Platelet mean volume (Bld) [Entitic vol] 7.7 fL 7.4 - 10.4 fL [place] Platelets (Bld) [#/Vol] 277 10*3/uL 140 - 440 10*3/uL [place] RBC (Bld) [#/Vol] 3.33 10*6/uL Low 4.4 - 5.9 10*6/uL [place] WBC (Bld) [#/Vol] 4.0 10*3/uL 3.6 - 10.7 10*3/uL [place] Test Performed by [facility], [address] [place] [address] [facility] [place], [place] Comp Metabolic Panelon 06-16 ALP [Catalytic activity/Vol] 532 U/L High 38-126 [facility] Comment on above: Performed By: #### C MP3M, HEMDF, LIPA4, APTT, BILD3, PT #### [facility] [address] [place] [address] ALT [Catalytic activity/Vol] 509 U/L High 13-69 [facility] Comment on above: Performed By: #### C MP3M, HEMDF, LIPA4, APTT, BILD3, PT #### [place] [address] [place] [address] AST [Catalytic activity/Vol] 232 U/L High 15-46 [facility] Comment on above: Performed By: #### C MP3M, HEMDF, LIPA4, APTT, BILD3, PT #### [place] [address] [place], [place] Calcium [Mass/Vol] 9.4 mg/dL Normal 8.4-10.4 [facility] Comment on above: Performed By: #### C MP3M, HEMDF, LIPA4, APTT, BILD3, PT #### [place] [address] [place], [place] Glucose [Mass/Vol] 104 mg/dL High 70-100 [facility] Comment on above: Performed By: #### C MP3M, HEMDF, LIPA4, APTT, BILD3, PT #### [place] [address] [place], [place] Protein [Mass/Vol] 6.8 g/dL Normal 6.3-8.2 [facility] Comment on above: Performed By: #### C MP3M, HEMDF, LIPA4, APTT, BILD3, PT #### [place] [address] [place], [place] Urea nitrogen [Mass/Vol] 4 mg/dL Low 7-20 [facility] Comment on above: Performed By: #### C MP3M, HEMDF, LIPA4, APTT, BILD3, PT #### [facility] [address] [place] [place], [place] Anion gap [Moles/Vol] 8 Normal [facility] Comment on above: Performed By: #### C MP3M, HEMDF, LIPA4, APTT, BILD3, PT #### [facility] [address] [place] [place], [place] Bilirubin [Mass/Vol] 1.4 mg/dL High 0.2-1.3 [facility] Comment on above: Performed By: #### C MP3M, HEMDF, LIPA4, APTT, BILD3, PT #### [place] [address] [place], [place] CO2 [Moles/Vol] 22 mmol/L Normal 22-30 [facility] Comment on above: Performed By: #### C MP3M, HEMDF, LIPA4, APTT, BILD3, PT #### [place] [address] [place], [place] Creatinine [Mass/Vol] 0.71 mg/dL Normal 0.52-1.25 [facility] Comment on above: Performed By: #### C MP3M, HEMDF, LIPA4, APTT, BILD3, PT #### [facility] [address] [place] [place], [place] GFR/1.73 sq M predicted among blacks MDRD (S/P/Bld) [Vol rate/Area] mL/min/{1.73_m2} Normal >60 [facility] Comment on above: Performed By: #### C MP3M, HEMDF, LIPA4, APTT, BILD3, PT #### [place] [address] [place], [place] GFR/1.73 sq M predicted among non-blacks MDRD (S/P/Bld) [Vol rate/Area] mL/min/{1.73_m2} Normal >60 [facility] Comment on above: Result Comment: Sour ce- MDRD equation with creatinine calibration to IDMS(NKDEP) eGFR not recommended for drug dose adjustment Performed By: #### C MP3M, HEMDF, LIPA4, APTT, BILD3, PT #### [place] [address] [place], [place] Albumin [Mass/Vol] 3.9 g/dL Normal 3.5-5.0 [facility] Comment on above: Performed By: #### C MP3M, HEMDF, LIPA4, APTT, BILD3, PT #### [place] [address] [place], [place] Chloride [Moles/Vol] 107 mmol/L Normal 98-107 [facility] Comment on above: Performed By: #### C MP3M, HEMDF, LIPA4, APTT, BILD3, PT #### [place] [address] [place], [place] Potassium [Moles/Vol] 3.5 mmol/L Normal 3.5-5.1 [facility] Comment on above: Performed By: #### C MP3M, HEMDF, LIPA4, APTT, BILD3, PT #### [place] [address] [place] Sodium [Moles/Vol] 137 mmol/L Normal 135-145 [facility] Comment on above: Performed By: #### C MP3M, HEMDF, LIPA4, APTT, BILD3, PT #### [place] [address] [place], [place] Comprehensive Metabolic Pane olga 06-16-2019 Albumin [Mass/Vol] 3.9 g/dL 3.5 - 5 g/dL [place] ALP [Catalytic activity/Vol] 532 U/L High 38 - 126 U/L [place] ALT [Catalytic activity/Vol] 509 U/L High 13 - 69 U/L [place] Anion gap [Moles/Vol] 8 mmol/L [place] AST [Catalytic activity/Vol] 232 U/L High 15 - 46 U/L [place] Bilirubin Ql (U) 1.4 mg/dL High 0.2 - 1.3 mg/dL [place] Calcium [Mass/Vol] 9.4 mg/dL 8.4 - 10. 4 mg/dL [place] Chloride [Moles/Vol] 107 mmol/L 98 - 10 7 mmol/L [place] CO2 [Moles/Vol] 22 mmol/L 22 - 30 mmol/L [place] Creatinine [Mass/Vol] 0.71 mg/dL 0.52 - 1.25 mg/dL [place] EGFR IF NonAfrican Israeli >60.0 >60 mL/min [place] Comment on above: Source- MDRD equatio n with creatinine calibration to IDMS(NKDEP) eGFR not recommended for drug dose adjustment GFR/1.73 sq M predicted among blacks MDRD (S/P/Bld) [Vol rate/Area] mL/min/{1.73_m2} >60 mL/min [place] Glucose [Mass/Vol] 104 mg/dL High 70 - 100 mg/dL [place] Potassium [Moles/Vol] 3.5 mmol/L 3.5 - 5.1 mmol/L [place] Protein [Mass/Vol] 6.8 g/dL 6.3 - 8.2 g/dL [place] Sodium [Moles/Vol] 137 mmol/L 135 - 145 mmol/L [place] Urea nitrogen [Mass/Vol] 4 mg/dL Low 7 - 20 mg/dL [place] Glucose,Bedsideon 06-16-2019 Glucose [Mass/Vol] 115 mg/dL High 70-100 [facility] Comment on above: Result Comment: Test performed by glucose meter. Results may be 10%-15% lower than serum/plasma values. (CLIA ID [id number]) Performed By: #### C MP3M, HEMDF, LIPA4, APTT, BILD3, PT #### [facility] [address] [place] [address] Glucose [Mass/Vol] 221 mg/dL High 70-100 [facility] Comment on above: Result Comment: Test performed by glucose meter. Results may be 10%-15% lower than serum/plasma values. (CLIA ID [id number]) Performed By: #### C MP3M, HEMDF, LIPA4, APTT, BILD3, PT #### [address] Hemogramon 06-16-2019 Erythrocyte distribution width (RBC) [Ratio] 15.4 % High 11.5-14.5 [facility] Comment on above: Performed By: #### C MP3M, HEMDF, LIPA4, APTT, BILD3, PT #### [place] [address] [place], [place] Hematocrit (Bld) [Volume fraction] 29.9 % Low 40.0-52.0 [facility] Comment on above: Performed By: #### C MP3M, HEMDF, LIPA4, APTT, BILD3, PT #### [address] Hemoglobin (Bld) [Mass/Vol] 10.0 g/dL Low 13.0-18.0 [facility] Comment on above: Performed By: #### C MP3M, HEMDF, LIPA4, APTT, BILD3, PT #### [address] MCH (RBC) [Entitic mass] 30.1 pg Normal 26.0-34.0 [facility] Comment on above: Performed By: #### C MP3M, HEMDF, LIPA4, APTT, BILD3, PT #### [place] [address] [place], [place] MCHC (RBC) [Mass/Vol] 33.5 % Normal 32.0-36.0 [facility] Comment on above: Performed By: #### C MP3M, HEMDF, LIPA4, APTT, BILD3, PT #### [address] MCV (RBC) [Entitic vol] 89.9 fL Normal 80.0-98.0 [facility] Comment on above: Performed By: #### C MP3M, HEMDF, LIPA4, APTT, BILD3, PT #### [place] [address] [place], [place] Platelet mean volume (Bld) [Entitic vol] 7.7 fL Normal 7.4-10.4 [facility] Comment on above: Performed By: #### C MP3M, HEMDF, LIPA4, APTT, BILD3, PT #### [place] [address] [place] [address] Platelets (Bld) [#/Vol] 277 10*3/uL Normal 140-440 [facility] Comment on above: Performed By: #### C MP3M, HEMDF, LIPA4, APTT, BILD3, PT #### [place] [address] [place], [place] RBC (Bld) [#/Vol] 3.33 10*6/uL Low 4.40-5.90 [facility] Comment on above: Performed By: #### C MP3M, HEMDF, LIPA4, APTT, BILD3, PT #### [place] [address] [place], [place] WBC (Bld) [#/Vol] 4.0 10*3/uL Normal 3.6-10.7 [facility] Comment on above: Performed By: #### C MP3M, HEMDF, LIPA4, APTT, BILD3, PT #### [address] [place] [address] Lipaseon 06-16-2019 Lipase [Catalytic activity/Vol] 1539 U/L High 23-300 [facility] Comment on above: Performed By: #### C MP3M, HEMDF, LIPA4, APTT, BILD3, PT #### [address] [place] [address] Lipase [Catalytic activity/Vol] 1539 U/L High 23 - 300 U/L [place], [place] Otheron 06-16-2019 Interpretation and review of laboratory results Abnormal [place] Test Performed by [address] [place] [address] [place], [place] POCT Glucoseon 06-16-2019 Glucose [Mass/Vol] 115 mg/dL High 70 - 100 mg/dL [place], [place] Comment on above: Test performed by gl ucose meter. Results may be 10%-15% lower than serum/plasma values. (CLIA ID [id number]) Interpretation and review of laboratory results Abnormal [place] Test Performed by [facility], [address] [place] [address] [place], [place] Glucose [Mass/Vol] 221 mg/dL High 70 - 100 mg/dL [place] Comment on above: Test performed by gl ucose meter. Results may be 10%-15% lower than serum/plasma values. (CLIA ID [id number]) Interpretation and review of laboratory results Abnormal [place] Test Performed by [facility], [facility] [place] [address] [place], [place] CBCon 06-15-2019 Erythrocyte distribution width (RBC) [Ratio] 15.3 % High 11.5 - 14.5 % [place] Hematocrit (Bld) [Volume fraction] 30.8 % Low 40 - 52 % [place] Hemoglobin (Bld) [Mass/Vol] 10.3 g/dL Low 13 - 18 g/dL [place] Interpretation and review of laboratory results Abnormal [place] MCH (RBC) [Entitic mass] 29.8 pg 26 - 34 pg [place] MCHC (RBC) [Mass/Vol] 33.4 % 32 - 36 % [place] MCV (RBC) [Entitic vol] 89.2 fL 80 - 98 fL [place] Platelet mean volume (Bld) [Entitic vol] 7.5 fL 7.4 - 10.4 fL [place] Platelets (Bld) [#/Vol] 312 10*3/uL 140 - 440 10*3/uL [place] RBC (Bld) [#/Vol] 3.46 10*6/uL Low 4.4 - 5.9 10*6/uL [place] WBC (Bld) [#/Vol] 4.3 10*3/uL 3.6 - 10.7 10*3/uL [facility], [place] Test Performed by [facility], [address] [place] [address] [facility], [place] Comp Metabolic Panelon 06-15 ALP [Catalytic activity/Vol] 573 U/L High 38-126 [facility] Comment on above: Performed By: #### C MP3M, HEMDF, LIPA4, APTT, BILD3, PT #### [facility] [address] [place], [place] ALT [Catalytic activity/Vol] 547 U/L High 13-69 [facility] Comment on above: Performed By: #### C MP3M, HEMDF, LIPA4, APTT, BILD3, PT #### [facility] [address] [place], [place] Anion gap [Moles/Vol] 11 Normal [facility] Comment on above: Performed By: #### C MP3M, HEMDF, LIPA4, APTT, BILD3, PT #### [facility] [address] [place], [place] AST [Catalytic activity/Vol] 236 U/L High 15-46 [facility] Comment on above: Performed By: #### C MP3M, HEMDF, LIPA4, APTT, BILD3, PT #### [facility] [address] [place] [place], [place] Calcium [Mass/Vol] 9.7 mg/dL Normal 8.4-10.4 [facility] Comment on above: Performed By: #### C MP3M, HEMDF, LIPA4, APTT, BILD3, PT #### [facility] [address] [place], [place] CO2 [Moles/Vol] 22 mmol/L Normal 22-30 [facility] Comment on above: Performed By: #### C MP3M, HEMDF, LIPA4, APTT, BILD3, PT #### [facility] [address] [place] [place], [place] Glucose [Mass/Vol] 116 mg/dL High 70-100 [facility] Comment on above: Performed By: #### C MP3M, HEMDF, LIPA4, APTT, BILD3, PT #### [address] [place] Protein [Mass/Vol] 7.2 g/dL Normal 6.3-8.2 [facility] Comment on above: Performed By: #### C MP3M, HEMDF, LIPA4, APTT, BILD3, PT #### [address] [place] Urea nitrogen [Mass/Vol] 4 mg/dL Low 7-20 [facility] Comment on above: Performed By: #### C MP3M, HEMDF, LIPA4, APTT, BILD3, PT #### [address] Bilirubin [Mass/Vol] 1.4 mg/dL High 0.2-1.3 [facility] Comment on above: Performed By: #### C MP3M, HEMDF, LIPA4, APTT, BILD3, PT #### [address] [place] Creatinine [Mass/Vol] 0.69 mg/dL Normal 0.52-1.25 [facility] Comment on above: Performed By: #### C MP3M, HEMDF, LIPA4, APTT, BILD3, PT #### [address] [place] GFR/1.73 sq M predicted among blacks MDRD (S/P/Bld) [Vol rate/Area] mL/min/{1.73_m2} Normal >60 [facility] Comment on above: Performed By: #### C MP3M, HEMDF, LIPA4, APTT, BILD3, PT #### [address] GFR/1.73 sq M predicted among non-blacks MDRD (S/P/Bld) [Vol rate/Area] mL/min/{1.73_m2} Normal >60 [facility] Comment on above: Result Comment: Sour ce- MDRD equation with creatinine calibration to IDMS(NKDEP) eGFR not recommended for drug dose adjustment Performed By: #### C MP3M, HEMDF, LIPA4, APTT, BILD3, PT #### [address] [place] Albumin [Mass/Vol] 4.1 g/dL Normal 3.5-5.0 [facility] Comment on above: Performed By: #### C MP3M, HEMDF, LIPA4, APTT, BILD3, PT #### [address] [place] Chloride [Moles/Vol] 106 mmol/L Normal 98-107 [facility] Comment on above: Performed By: #### C MP3M, HEMDF, LIPA4, APTT, BILD3, PT #### [address] [place] Potassium [Moles/Vol] 3.7 mmol/L Normal 3.5-5.1 [facility] Comment on above: Performed By: #### C MP3M, HEMDF, LIPA4, APTT, BILD3, PT #### [address] [place] Sodium [Moles/Vol] 140 mmol/L Normal 135-145 [facility] Comment on above: Performed By: #### C MP3M, HEMDF, LIPA4, APTT, BILD3, PT #### [address] [place] Comprehensive Metabolic Pane olga 06-15-2019 Albumin [Mass/Vol] 4.1 g/dL 3.5 - 5 g/dL [place] ALP [Catalytic activity/Vol] 573 U/L High 38 - 126 U/L [place] ALT [Catalytic activity/Vol] 547 U/L High 13 - 69 U/L [place] Anion gap [Moles/Vol] 11 mmol/L [place] AST [Catalytic activity/Vol] 236 U/L High 15 - 46 U/L [place] Bilirubin Ql (U) 1.4 mg/dL High 0.2 - 1.3 mg/dL [place] Calcium [Mass/Vol] 9.7 mg/dL 8.4 - 10. 4 mg/dL [place] Chloride [Moles/Vol] 106 mmol/L 98 - 10 7 mmol/L [place] CO2 [Moles/Vol] 22 mmol/L 22 - 30 mmol/L [place] Creatinine [Mass/Vol] 0.69 mg/dL 0.52 - 1.25 mg/dL [place] EGFR IF NonAfrican Israeli >60.0 >60 mL/min [place] Comment on above: Source- MDRD equatio n with creatinine calibration to IDMS(NKDEP) eGFR not recommended for drug dose adjustment GFR/1.73 sq M predicted among blacks MDRD (S/P/Bld) [Vol rate/Area] mL/min/{1.73_m2} >60 mL/min [place] Glucose [Mass/Vol] 116 mg/dL High 70 - 100 mg/dL [place] Potassium [Moles/Vol] 3.7 mmol/L 3.5 - 5.1 mmol/L [place] Protein [Mass/Vol] 7.2 g/dL 6.3 - 8.2 g/dL [place] Sodium [Moles/Vol] 140 mmol/L 135 - 145 mmol/L [place] Urea nitrogen [Mass/Vol] 4 mg/dL Low 7 - 20 mg/dL [place] Glucose,Bedsideon 06-15-2019 Glucose [Mass/Vol] 91 mg/dL Normal 70-100 [facility] Comment on above: Result Comment: Test performed by glucose meter. Results may be 10%-15% lower than serum/plasma values. (CLIA ID [id number]) Performed By: #### C MP3M, HEMDF, LIPA4, APTT, BILD3, PT #### [facility] [address] [place] [address] Glucose [Mass/Vol] 153 mg/dL High 70-100 [facility] Comment on above: Result Comment: Test performed by glucose meter. Results may be 10%-15% lower than serum/plasma values. (CLIA ID [id number]) Performed By: #### C MP3M, HEMDF, LIPA4, APTT, BILD3, PT #### [facility] [employer] [address] [place], [place] Glucose [Mass/Vol] 117 mg/dL High 70-100 [facility] Comment on above: Result Comment: Test performed by glucose meter. Results may be 10%-15% lower than serum/plasma values. (CLIA ID [id number]) Performed By: #### C MP3M, HEMDF, LIPA4, APTT, BILD3, PT #### [address] Glucose [Mass/Vol] 137 mg/dL High 70-100 [facility] Comment on above: Result Comment: Test performed by glucose meter. Results may be 10%-15% lower than serum/plasma values. (CLIA ID [id number]) Performed By: #### C MP3M, HEMDF, LIPA4, APTT, BILD3, PT #### [facility] [employer] [address] [place], [place] Glucose [Mass/Vol] 124 mg/dL High 70-100 [facility] Comment on above: Result Comment: Test performed by glucose meter. Results may be 10%-15% lower than serum/plasma values. (CLIA ID [id number]) Performed By: #### C MP3M, HEMDF, LIPA4, APTT, BILD3, PT #### [facility] [employer] [address], [place] Hemogramon 06-15-2019 Erythrocyte distribution width (RBC) [Ratio] 15.3 % High 11.5-14.5 [facility] Comment on above: Performed By: #### C MP3M, HEMDF, LIPA4, APTT, BILD3, PT #### [address] Hematocrit (Bld) [Volume fraction] 30.8 % Low 40.0-52.0 [facility] Comment on above: Performed By: #### C MP3M, HEMDF, LIPA4, APTT, BILD3, PT #### [address] [place] Hemoglobin (Bld) [Mass/Vol] 10.3 g/dL Low 13.0-18.0 [facility] Comment on above: Performed By: #### C MP3M, HEMDF, LIPA4, APTT, BILD3, PT #### [address] [place] MCH (RBC) [Entitic mass] 29.8 pg Normal 26.0-34.0 [facility] Comment on above: Performed By: #### C MP3M, HEMDF, LIPA4, APTT, BILD3, PT #### [address] MCHC (RBC) [Mass/Vol] 33.4 % Normal 32.0-36.0 [facility] Comment on above: Performed By: #### C MP3M, HEMDF, LIPA4, APTT, BILD3, PT #### [address] [place] MCV (RBC) [Entitic vol] 89.2 fL Normal 80.0-98.0 [facility] Comment on above: Performed By: #### C MP3M, HEMDF, LIPA4, APTT, BILD3, PT #### [address] Platelet mean volume (Bld) [Entitic vol] 7.5 fL Normal 7.4-10.4 [facility] Comment on above: Performed By: #### C MP3M, HEMDF, LIPA4, APTT, BILD3, PT #### [address] Platelets (Bld) [#/Vol] 312 10*3/uL Normal 140-440 [facility] Comment on above: Performed By: #### C MP3M, HEMDF, LIPA4, APTT, BILD3, PT #### [address] [place] RBC (Bld) [#/Vol] 3.46 10*6/uL Low 4.40-5.90 [facility] Comment on above: Performed By: #### C MP3M, HEMDF, LIPA4, APTT, BILD3, PT #### [facility] [address] [place] [address] WBC (Bld) [#/Vol] 4.3 10*3/uL Normal 3.6-10.7 [facility] Comment on above: Performed By: #### C MP3M, HEMDF, LIPA4, APTT, BILD3, PT #### [facility] [address] [place] [address] Lipaseon 06-15-2019 Lipase [Catalytic activity/Vol] 1585 U/L High 23-300 [facility] Comment on above: Performed By: #### C MP3M, HEMDF, LIPA4, APTT, BILD3, PT #### [facility] [address] [place] [address] Lipase [Catalytic activity/Vol] 1585 U/L High 23 - 300 U/L [place] Otheron 06-15-2019 Interpretation and review of laboratory results Abnormal [place] Test Performed by [facility], [facility] [place] [address] [place] POCT Glucoseon 06-15-2019 Glucose [Mass/Vol] 91 mg/dL 70 - 100 mg/dL [place] Comment on above: Test performed by [employer] ucose meter. Results may be 10%-15% lower than serum/plasma values. (CLIA ID [id number]) Test Performed by [facility], [place] [address] [place], [place] Glucose [Mass/Vol] 153 mg/dL High 70 - 100 mg/dL [place] Comment on above: Test performed by gl ucose meter. Results may be 10%-15% lower than serum/plasma values. (CLIA ID [id number]) Interpretation and review of laboratory results Abnormal [place] Test Performed by [facility], [place] [address] [facility]- [place], [place] Glucose [Mass/Vol] 117 mg/dL High 70 - 100 mg/dL [facility], [place] Comment on above: Test performed by gl ucose meter. Results may be 10%-15% lower than serum/plasma values. (CLIA ID [id number]) Interpretation and review of laboratory results Abnormal [facility]- [place], [place] Test Performed by [facility], [facility] [place] [address] [facility], [place] Glucose [Mass/Vol] 137 mg/dL High 70 - 100 mg/dL [facility] [place], [place] Comment on above: Test performed by gl ucose meter. Results may be 10%-15% lower than serum/plasma values. (CLIA ID [id number]) Interpretation and review of laboratory results Abnormal [facility] [place] Test Performed by [facility], [place] [address] [facility], [place] Glucose [Mass/Vol] 124 mg/dL High 70 - 100 mg/dL [facility], [place] Comment on above: Test performed by gl ucose meter. Results may be 10%-15% lower than serum/plasma values. (CLIA ID [id number]) Interpretation and review of laboratory results Abnormal [facility] [employer]- [place], [place] Test Performed by [facility], [place] [address] [facility], [place] Add On Lab Teston 06-14-2019 Sodium [Moles/Vol] Accepted [facility]- [place], [place] Comment on above: Specimen available & acceptable for analysis. Test Performed by [facility], [place] [address] [facility], [place] Add on test from HISon 06-14 Add on test from HIS Accepted [facility] Comment on above: Result Comment: Spec imen available & acceptable for analysis. Performed By: #### C MP3M, HEMDF, LIPA4, APTT, BILD3, PT #### [address] [place] [address] Basic Metabolic Panelon 05-27 Calcium [Mass/Vol] 9.4 mg/dL Normal 8.4-10.4 [facility] Comment on above: Performed By: #### C MP3M, HEMDF, LIPA4, APTT, BILD3, PT #### [address] [place] Anion gap [Moles/Vol] 9 Normal [facility] Comment on above: Performed By: #### C MP3M, HEMDF, LIPA4, APTT, BILD3, PT #### [address] [place] CO2 [Moles/Vol] 24 mmol/L Normal 22-30 [facility] Comment on above: Performed By: #### C MP3M, HEMDF, LIPA4, APTT, BILD3, PT #### [address] Creatinine [Mass/Vol] 0.62 mg/dL Normal 0.52-1.25 [facility] Comment on above: Performed By: #### C MP3M, HEMDF, LIPA4, APTT, BILD3, PT #### [address] [place] GFR/1.73 sq M predicted among blacks MDRD (S/P/Bld) [Vol rate/Area] mL/min/{1.73_m2} Normal >60 [facility] Comment on above: Performed By: #### C MP3M, HEMDF, LIPA4, APTT, BILD3, PT #### [address] [place] GFR/1.73 sq M predicted among non-blacks MDRD (S/P/Bld) [Vol rate/Area] mL/min/{1.73_m2} Normal >60 [facility] Comment on above: Result Comment: Sour ce- MDRD equation with creatinine calibration to IDMS(NKDEP) eGFR not recommended for drug dose adjustment Performed By: #### C MP3M, HEMDF, LIPA4, APTT, BILD3, PT #### [address] [place] [address] Glucose [Mass/Vol] 161 mg/dL High 70-100 [facility] Comment on above: Performed By: #### C MP3M, HEMDF, LIPA4, APTT, BILD3, PT #### [facility] [address] [place], [place] Urea nitrogen [Mass/Vol] 5 mg/dL Low 7-20 [facility] Comment on above: Performed By: #### C MP3M, HEMDF, LIPA4, APTT, BILD3, PT #### [address] [place] Chloride [Moles/Vol] 102 mmol/L Normal 98-107 [facility] Comment on above: Performed By: #### C MP3M, HEMDF, LIPA4, APTT, BILD3, PT #### [address] [place] Potassium [Moles/Vol] 3.4 mmol/L Low 3.5-5.1 [facility] Comment on above: Performed By: #### C MP3M, HEMDF, LIPA4, APTT, BILD3, PT #### [address] [place] Sodium [Moles/Vol] 135 mmol/L Normal 135-145 [facility] Comment on above: Performed By: #### C MP3M, HEMDF, LIPA4, APTT, BILD3, PT #### [address] [place] Anion gap [Moles/Vol] 9 mmol/L [place] Calcium [Mass/Vol] 9.4 mg/dL 8.4 - 10. 4 mg/dL [place] Chloride [Moles/Vol] 102 mmol/L 98 - 10 7 mmol/L [place] CO2 [Moles/Vol] 24 mmol/L 22 - 30 mmol/L [place] Creatinine [Mass/Vol] 0.62 mg/dL 0.52 - 1.25 mg/dL [place] EGFR IF NonAfrican Israeli >60.0 >60 mL/min [place] Comment on above: Source- MDRD equatio n with creatinine calibration to IDMS(NKDEP) eGFR not recommended for drug dose adjustment GFR/1.73 sq M predicted among blacks MDRD (S/P/Bld) [Vol rate/Area] mL/min/{1.73_m2} >60 mL/min [place] Glucose [Mass/Vol] 161 mg/dL High 70 - 100 mg/dL [place] Potassium [Moles/Vol] 3.4 mmol/L Low 3.5 - 5.1 mmol/L [place] Sodium [Moles/Vol] 135 mmol/L 135 - 145 mmol/L [place] Urea nitrogen [Mass/Vol] 5 mg/dL Low 7 - 20 mg/dL [place] CBCon 06-14-2019 Erythrocyte distribution width (RBC) [Ratio] 14.7 % High 11.5 - 14.5 % [place] Hematocrit (Bld) [Volume fraction] 28.1 % Low 40 - 52 % [place] Hemoglobin (Bld) [Mass/Vol] 9.4 g/dL Low 13 - 18 g/dL [place] Interpretation and review of laboratory results Abnormal [place] MCH (RBC) [Entitic mass] 29.8 pg 26 - 34 pg [place] MCHC (RBC) [Mass/Vol] 33.6 % 32 - 36 % [place] MCV (RBC) [Entitic vol] 88.9 fL 80 - 98 fL [place] Platelet mean volume (Bld) [Entitic vol] 7.4 fL 7.4 - 10.4 fL [place] Platelets (Bld) [#/Vol] 279 10*3/uL 140 - 440 10*3/uL [place] RBC (Bld) [#/Vol] 3.16 10*6/uL Low 4.4 - 5.9 10*6/uL [place] WBC (Bld) [#/Vol] 4.0 10*3/uL 3.6 - 10.7 10*3/uL [facility] [place] Test Performed by [facility], [address] [facility] [place], [place] [address] [facility], [place] CEAon 06-14-2019 CEA 0.5 ng/mL 0 - 3 ng/mL [facility], [place] Test Performed by [facility], [address] [facility] [place], [place] [address] [facility], [place] Carcinoembryonic Agon 2018 Carcinoembryonic Ag [Mass/Vol] 0.5 ng/mL Normal 0.0-3.0 [facility] Comment on above: Performed By: #### C MP3M, HEMDF, LIPA4, APTT, BILD3, PT #### [facility] [address] [place], [place] Glucose,Bedsideon 06-14-2019 Glucose [Mass/Vol] 144 mg/dL High 70-100 [facility] Comment on above: Result Comment: Test performed by glucose meter. Results may be 10%-15% lower than serum/plasma values. (CLIA ID [id number]) Performed By: #### C MP3M, HEMDF, LIPA4, APTT, BILD3, PT #### [facility] [employer] [facility] [address] [place], [place] Glucose [Mass/Vol] 124 mg/dL High 70-100 [facility] Comment on above: Result Comment: Test performed by glucose meter. Results may be 10%-15% lower than serum/plasma values. (CLIA ID [id number]) Performed By: #### C MP3M, HEMDF, LIPA4, APTT, BILD3, PT #### [facility] [employer] [facility] [address] [place], [place] Hemogramon 06-14-2019 Erythrocyte distribution width (RBC) [Ratio] 14.7 % High 11.5-14.5 [facility] Comment on above: Performed By: #### C MP3M, HEMDF, LIPA4, APTT, BILD3, PT #### [facility] [employer] [facility] [address] [place], [place] Hematocrit (Bld) [Volume fraction] 28.1 % Low 40.0-52.0 [facility] Comment on above: Performed By: #### C MP3M, HEMDF, LIPA4, APTT, BILD3, PT #### [address] [place] Hemoglobin (Bld) [Mass/Vol] 9.4 g/dL Low 13.0-18.0 [facility] Comment on above: Performed By: #### C MP3M, HEMDF, LIPA4, APTT, BILD3, PT #### [address] [place] MCH (RBC) [Entitic mass] 29.8 pg Normal 26.0-34.0 [facility] Comment on above: Performed By: #### C MP3M, HEMDF, LIPA4, APTT, BILD3, PT #### [address] MCHC (RBC) [Mass/Vol] 33.6 % Normal 32.0-36.0 [facility] Comment on above: Performed By: #### C MP3M, HEMDF, LIPA4, APTT, BILD3, PT #### [address] MCV (RBC) [Entitic vol] 88.9 fL Normal 80.0-98.0 [facility] Comment on above: Performed By: #### C MP3M, HEMDF, LIPA4, APTT, BILD3, PT #### [address] [address] [place] Platelet mean volume (Bld) [Entitic vol] 7.4 fL Normal 7.4-10.4 [facility] Comment on above: Performed By: #### C MP3M, HEMDF, LIPA4, APTT, BILD3, PT #### [address] Platelets (Bld) [#/Vol] 279 10*3/uL Normal 140-440 [facility] Comment on above: Performed By: #### C MP3M, HEMDF, LIPA4, APTT, BILD3, PT #### [address] [place] RBC (Bld) [#/Vol] 3.16 10*6/uL Low 4.40-5.90 [facility] Comment on above: Performed By: #### C MP3M, HEMDF, LIPA4, APTT, BILD3, PT #### [address] [place] WBC (Bld) [#/Vol] 4.0 10*3/uL Normal 3.6-10.7 [facility] Comment on above: Performed By: #### C MP3M, HEMDF, LIPA4, APTT, BILD3, PT #### [address] [place] Hepatic Functionon 06-14- 9 ALT [Catalytic activity/Vol] 642 U/L High 13-69 [facility] Comment on above: Performed By: #### C MP3M, HEMDF, LIPA4, APTT, BILD3, PT #### [address] [place] ALP [Catalytic activity/Vol] 492 U/L High 38-126 [facility] Comment on above: Performed By: #### C MP3M, HEMDF, LIPA4, APTT, BILD3, PT #### [address] [place] AST [Catalytic activity/Vol] 539 U/L High 15-46 [facility] Comment on above: Performed By: #### C MP3M, HEMDF, LIPA4, APTT, BILD3, PT #### [address] [place] Bilirubin [Mass/Vol] 2.2 mg/dL High 0.2-1.3 [facility] Comment on above: Performed By: #### C MP3M, HEMDF, LIPA4, APTT, BILD3, PT #### [address] [place] Bilirubin.direct [Mass/Vol] 0.5 mg/dL High 0.0-0.3 [facility] Comment on above: Performed By: #### C MP3M, HEMDF, LIPA4, APTT, BILD3, PT #### [address] Protein [Mass/Vol] 6.8 g/dL Normal 6.3-8.2 [facility] Comment on above: Performed By: #### C MP3M, HEMDF, LIPA4, APTT, BILD3, PT #### [address] Albumin [Mass/Vol] 3.7 g/dL Normal 3.5-5.0 [facility] Comment on above: Performed By: #### C MP3M, HEMDF, LIPA4, APTT, BILD3, PT #### [address] Hepatic Function Panelon Albumin [Mass/Vol] 3.7 g/dL 3.5 - 5 g/dL [place] ALP [Catalytic activity/Vol] 492 U/L High 38 - 126 U/L [place] ALT [Catalytic activity/Vol] 642 U/L High 13 - 69 U/L [place] AST [Catalytic activity/Vol] 539 U/L High 15 - 46 U/L [place] Bilirubin Ql (U) 2.2 mg/dL High 0.2 - 1.3 mg/dL [place] Bilirubin.direct [Mass/Vol] 0.5 mg/dL High 0 - 0.3 mg/dL [place] Interpretation and review of laboratory results Abnormal [place] Protein [Mass/Vol] 6.8 g/dL 6.3 - 8.2 g/dL [place] Test Performed by [address] [address] [place] Lipaseon 06-14-2019 Lipase [Catalytic activity/Vol] 1811 U/L High 23-300 [facility] Comment on above: Performed By: #### C MP3M, HEMDF, LIPA4, APTT, BILD3, PT #### [address] [id number] Lipase [Catalytic activity/Vol] 1811 U/L High 23 - 300 U/L [facility]- [place], [place] MRI ABDOMEN WO CONTRASTon Derian Rios Incoming Radiology Results From [facility] - 06/14/2019 10:16 AM EST Patient Name: AGA ADAN ---MRI--- Exam Date/Time 06/14/2019 09:09:23 EST Exam MRI Abdomen w/o Contrast Ordering Physician [id number] MCLAUGHLIN Accession Number [id number] CPT4 Codes 27755 () Reason For Exam elevated bilirubin, hx of chronic pancreatitis, r/o biliary obstruction Report MRI OF THE ABDOMEN WITH MRCP: CLINICAL INDICATION: Chronic pancreatitis, possible biliary obstruction. TECHNIQUE: Transaxial and coronal T1 and T2 breath hold along with transaxial and coronal gradient echo sequences were performed through the abdomen. Thick section multi-angle and thin section multi-slice MRCP sequences were performed through the abdomen as well. Maximum intensity projection 3-D images were created with the latter data set on an independent workstation. COMPARISON: 03/06/2019 FINDINGS: Gallbladder: Surgically absent. Biliary tree: There is intrahepatic and extrahepatic biliary dilatation. Common hepatic duct luminal caliber: 1.0 cm. Common bile duct luminal caliber: 1.0 cm. No filling defects identified. There is abrupt tapering involving the mid common bile duct. No filling defect to suggest choledocholithiasis. Pancreatic duct: Mildly dilated measuring 4 mm in diameter. Liver: Normal size and contour. No focal lesion. Diffuse loss of signal throughout the liver and opposed phase images with hepatic steatosis. Pancreas: There is a small amount of edema surrounding the tail the pancreas. There is edema involving the uncinate process and head of the pancreas. There is redemonstration of a complex cystic lesion in the uncinate process the pancreas which communicates with the main pancreatic duct. This measures approximately 2.2 x 1.8 cm in greatest transaxial diameters, increased in size from the prior study. This again demonstrates areas of hypointensity on the T2-weighted images. There is hypointense mural thickening. Spleen: Normal. Adrenals:Normal Kidneys: No contour abnormality or hydronephrosis. Small right renal cyst. Redemonstration of a circumaortic right renal vein. Aorta: Normal caliber. Visualized Osseous structures: Unremarkable. Other: There is thickening involving the descending portion of the duodenum. IMPRESSION: 1. Increase in size within the complex cystic lesion in the uncinate process of the pancreas. This again communicates with the remained pancreatic duct and could represent an IPMN but could also represent walled off necrosis related to prior pancreatitis. There is new biliary dilation and given this and the presence of hyperbilirubinemia, and these findings could be due to mass effect from this lesion; endoscopic evaluation should be strongly considered. 2. Pancreatic and peripancreatic edema suggesting pancreatitis. Mild mural thickening in the descending duodenum which may be due to adjacent inflammatory changes in the pancreas. 3. Mildly dilated main pancreatic duct may be related to chronic pancreatitis. 4. Hepatic steatosis. Report Dictated on --- Final --- Dictated: 06/14/2019 9:55 am Dictating Physician: MD BARBOSA NICHOLAS Signed Date and Time: 06/14/2019 10:14 am Signed by: MD BARBOSA NICHOLAS Transcribed Date and Time: 06/14/2019 10:09 [place], [place] Patient Name: AGA SO ---MRI--- Exam Date/Time 06/14/2019 09:09:23 EST Exam MRI Abdomen w/o Contrast Ordering Physician [id number] MCLAUGHLIN Accession Number [id number] CPT4 Codes 78039 () Reason For Exam elevated bilirubin, hx of chronic pancreatitis, r/o biliary obstruction Report MRI OF THE ABDOMEN WITH MRCP: CLINICAL INDICATION: Chronic pancreatitis, possible biliary obstruction. TECHNIQUE: Transaxial and coronal T1 and T2 breath hold along with transaxial and coronal gradient echo sequences were performed through the abdomen. Thick section multi-angle and thin section multi-slice MRCP sequences were performed through the abdomen as well. Maximum intensity projection 3-D images were created with the latter data set on an independent workstation. COMPARISON: 03/06/2019 FINDINGS: Gallbladder: Surgically absent. Biliary tree: There is intrahepatic and extrahepatic biliary dilatation. Common hepatic duct luminal caliber: 1.0 cm. Common bile duct luminal caliber: 1.0 cm. No filling defects identified. There is abrupt tapering involving the mid common bile duct. No filling defect to suggest choledocholithiasis. Pancreatic duct: Mildly dilated measuring 4 mm in diameter. Liver: Normal size and contour. No focal lesion. Diffuse loss of signal throughout the liver and opposed phase images with hepatic steatosis. Pancreas: There is a small amount of edema surrounding the tail the pancreas. There is edema involving the uncinate process and head of the pancreas. There is redemonstration of a complex cystic lesion in the uncinate process the pancreas which communicates with the main pancreatic duct. This measures approximately 2.2 x 1.8 cm in greatest transaxial diameters, increased in size from the prior study. This again demonstrates areas of hypointensity on the T2-weighted images. There is hypointense mural thickening. Spleen: Normal. Adrenals:Normal Kidneys: No contour abnormality or hydronephrosis. Small right renal cyst. Redemonstration of a circumaortic right renal vein. Aorta: Normal caliber. Visualized Osseous structures: Unremarkable. Other: There is thickening involving the descending portion of the duodenum. IMPRESSION: 1. Increase in size within the complex cystic lesion in the uncinate process of the pancreas. This again communicates with the remained pancreatic duct and could represent an IPMN but could also represent walled off necrosis related to prior pancreatitis. There is new biliary dilation and given this and the presence of hyperbilirubinemia, and these findings could be due to mass effect from this lesion; endoscopic evaluation should be strongly considered. 2. Pancreatic and peripancreatic edema suggesting pancreatitis. Mild mural thickening in the descending duodenum which may be due to adjacent inflammatory changes in the pancreas. 3. Mildly dilated main pancreatic duct may be related to chronic pancreatitis. 4. Hepatic steatosis. Report Dictated on --- Final --- Dictated: 06/14/2019 9:55 am Dictating Physician: MD BARBOSA NICHOLAS Signed Date and Time: 06/14/2019 10:14 am Signed by: MD BARBOSA NICHOLAS Transcribed Date and Time: 06/14/2019 10:09 [place] MRI Abdomen w/o Contraston 1 08-14-2018 MRI Abdomen w/o Contrast Patient Name: AGA ADAN MRI Exam Date/Time 06/14/2019 09:09:23 EST Exam MRI Abdomen w/o Contrast Ordering Physician [id number] BENITEZ Accession Number [id number] CPT4 Codes 27978 () Reason For Exam elevated bilirubin, hx of chronic pancreatitis, r/o biliary obstruction Report MRI OF THE ABDOMEN WITH MRCP: CLINICAL INDICATION: Chronic pancreatitis, possible biliary obstruction. TECHNIQUE: Transaxial and coronal T1 and T2 breath hold along with transaxial and coronal gradient echo sequences were performed through the abdomen. Thick section multi-angle and thin section multi-slice MRCP sequences were performed through the abdomen as well. Maximum intensity projection 3-D images were created with the latter data set on an independent workstation. COMPARISON: 03/06/2019 FINDINGS: Gallbladder: Surgically absent. Biliary tree: There is intrahepatic and extrahepatic biliary dilatation. Common hepatic duct luminal caliber: 1.0 cm. Common bile duct luminal caliber: 1.0 cm. No filling defects identified. There is abrupt tapering involving the mid common bile duct. No filling defect to suggest choledocholithiasis. Pancreatic duct: Mildly dilated measuring 4 mm in diameter. Liver: Normal size and contour. No focal lesion. Diffuse loss of signal throughout the liver and opposed phase images with hepatic steatosis. Pancreas: There is a small amount of edema surrounding the tail the pancreas. There is edema involving the uncinate process and head of the pancreas. There is redemonstration of a complex cystic lesion in the uncinate process the pancreas which communicates with the main pancreatic duct. This measures approximately 2.2 x 1.8 cm in greatest transaxial diameters, increased in size from the prior study. This again demonstrates areas of hypointensity on the T2-weighted images. There is hypointense mural thickening. Spleen: Normal. Adrenals:Normal Kidneys: No contour abnormality or hydronephrosis. Small right renal cyst. Redemonstration of a circumaortic right renal vein. Aorta: Normal caliber. Visualized Osseous structures: Unremarkable. Other: There is thickening involving the descending portion of the duodenum. IMPRESSION: 1. Increase in size within the complex cystic lesion in the uncinate process of the pancreas. This again communicates with the remained pancreatic duct and could represent an IPMN but could also represent walled off necrosis related to prior pancreatitis. There is new biliary dilation and given this and the presence of hyperbilirubinemia, and these findings could be due to mass effect from this lesion; endoscopic evaluation should be strongly considered. 2. Pancreatic and peripancreatic edema suggesting pancreatitis. Mild mural thickening in the descending duodenum which may be due to adjacent inflammatory changes in the pancreas. 3. Mildly dilated main pancreatic duct may be related to chronic pancreatitis. 4. Hepatic steatosis. Report Dictated on Final Dictated: 06/14/2019 9:55 am Dictating Physician: MD BARBOSA NICHOLAS Signed Date and Time: 06/14/2019 10:14 am Signed by: MD BARBOSA NICHOLAS Transcribed Date and Time: 06/14/2019 10:09 Normal [facility] Otheron 06-14-2019 Interpretation and review of laboratory results Abnormal [employer] Test Performed by [facility], [facility] [place] [address] [facility], [place] POCT Glucoseon 06-14-2019 Glucose [Mass/Vol] 144 mg/dL High 70 - 100 mg/dL [facility] [employer] Comment on above: Test performed by gl ucose meter. Results may be 10%-15% lower than serum/plasma values. (CLIA ID [id number]) Interpretation and review of laboratory results Abnormal [employer] Test Performed by [employer] [facility], [facility] [place] [address] [employer] [place], [place] Glucose [Mass/Vol] 124 mg/dL High 70 - 100 mg/dL [facility] [employer] Comment on above: Test performed by gl ucose meter. Results may be 10%-15% lower than serum/plasma values. (CLIA ID [id number]) Interpretation and review of laboratory results Abnormal [employer] Test Performed by [employer] [facility], [address] [place] [address] [facility] [employer] [place] APTTon 06-13-2019 aPTT Coag (Bld) [Time] 26.5 s Normal 20.0-30.5 [facility] Comment on above: Result Comment: NOTE : The therapeutic time for Heparin anticoagulation, based on Xa activity inhibition, is an APTT of 46-80 seconds. Performed By: #### C MP3M, HEMDF, LIPA4, APTT, BILD3, PT #### [place] [address] [address] [place], [place] aPTT Coag (Bld) [Time] 26.5 s 20 - 30.5 s [place], [place] Comment on above: NOTE: The therapeuti c time for Heparin anticoagulation, based on Xa activity inhibition, is an APTT of 46-80 seconds. Acute Hepatitis Panelon 05-26 Hep B Core IgM NOT DETECTED Normal Not-Detecte d [facility] Comment on above: Performed By: #### C MP3M, HEMDF, LIPA4, APTT, BILD3, PT #### [place] [address] [place] [place], [place] Hep C Antibody NOT DETECTED Normal Not-Detecte [facility] Comment on above: Result Comment: Soni ents with DETECTED Hepatitis C Ab results should have a new specimen submitted for supplemental testing with a Hepatitis C Quantitative RNA assay (viral load), if clinically indicated. Performed By: #### C MP3M, HEMDF, LIPA4, APTT, BILD3, PT #### [place] [address] [place] [place], [place] Hep A Virus Ab,IgM NOT DETECTED Normal Not-Detec te d [facility] Comment on above: Performed By: #### C MP3M, HEMDF, LIPA4, APTT, BILD3, PT #### [place] [address] [place], [place] Hep B Surface Ag NOT DETECTED Normal Not-Detecte d [facility] Comment on above: Performed By: #### C MP3M, HEMDF, LIPA4, APTT, BILD3, PT #### [place] [address] [place], [place] Add On Lab Teston 06-13-2019 Sodium [Moles/Vol] Accepted [place], [place] Comment on above: Specimen available & acceptable for analysis. Test Performed by [facility], [address], [place] [facility], [place] Sodium [Moles/Vol] Accepted [place], [place] Comment on above: Specimen available & acceptable for analysis. Test Performed by [facility], [address] [place] [address] [place], [place] Add on test from HISon 06-13 Add on test from HIS Accepted Normal [facility] Comment on above: Result Comment: Spec imen available & acceptable for analysis. Performed By: #### A DDON #### [facility] [address] [place], [place] Add on test from HIS Accepted Normal [facility] Comment on above: Result Comment: Spec imen available & acceptable for analysis. Performed By: #### A DDON #### [facility] [address] [place] [place], [place] Bilirubin, Directon 06-13-20 19 Bilirubin.direct [Mass/Vol] 0.4 mg/dL High 0 - 0.3 mg/dL [place] Interpretation and review of laboratory results Abnormal [place] Test Performed by [facility], [address] [place] [address] [place] Bilirubin,Directon 9 Bilirubin.direct [Mass/Vol] 0.4 mg/dL High 0.0-0.3 [facility] Comment on above: Performed By: #### C MP3M, HEMDF, LIPA4, APTT, BILD3, PT #### [facility] [address] [place], [place] CBC Auto Differentialon 05-26 Absolute Baso # 0.0 10*3/uL 0 - 0.2 10*3/uL [place] Absolute Neut # 3.2 10*3/uL 1.8 - 7 10*3/uL [place] Basophils/100 WBC (Bld) 0.3 % 0 - 2 % [place] Eosinophils (Bld) [#/Vol] 0.3 10*3/uL 0 - 0.5 10*3/uL [place] Eosinophils/100 WBC (Bld) 5.9 % 1 - 6 % [place] Erythrocyte distribution width (RBC) [Ratio] 14.8 % High 11.5 - 14.5 % [place] Granulocytes/100 WBC (Bld) 73.4 % 40 - 80 % [place] Hematocrit (Bld) [Volume fraction] 28.5 % Low 40 - 52 % [place] Hemoglobin (Bld) [Mass/Vol] 9.8 g/dL Low 13 - 18 g/dL [place] Interpretation and review of laboratory results Abnormal [place] Lymphocytes (Bld) [#/Vol] 0.5 10*3/uL Low 1 - 4.3 10*3/uL [place] Lymphocytes/100 WBC (Bld) 11.7 % Low 20 - 40 % [place] MCH (RBC) [Entitic mass] 30.4 pg 26 - 34 pg [place] MCHC (RBC) [Mass/Vol] 34.5 % 32 - 36 % [place] MCV (RBC) [Entitic vol] 88.0 fL 80 - 98 fL [place] Monocytes (Bld) [#/Vol] 0.4 10*3/uL 0 - 0.8 10*3/uL [place] Monocytes/100 WBC (Bld) 8.7 % 2 - 10 % [place] Platelet mean volume (Bld) [Entitic vol] 7.1 fL Low 7.4 - 10.4 fL [place] Platelets (Bld) [#/Vol] 247 10*3/uL 140 - 440 10*3/uL [place] RBC (Bld) [#/Vol] 3.23 10*6/uL Low 4.4 - 5.9 10*6/uL [place] WBC (Bld) [#/Vol] 4.3 10*3/uL 3.6 - 10.7 10*3/uL [place] Test Performed by [facility], [address] [place] [id number] [place] Comp Panel with Mg Reflexon 06-13-2019 ALP [Catalytic activity/Vol] 478 U/L High 38-126 [facility] Comment on above: Performed By: #### C MP3M, HEMDF, LIPA4, APTT, BILD3, PT #### [facility] [address] [place] [place], [place] ALT [Catalytic activity/Vol] 676 U/L High 13-69 [facility] Comment on above: Performed By: #### C MP3M, HEMDF, LIPA4, APTT, BILD3, PT #### [facility] [address] [place] [place], [place] Anion gap [Moles/Vol] 10 Normal [facility] Comment on above: Performed By: #### C MP3M, HEMDF, LIPA4, APTT, BILD3, PT #### [place] [address] [address] [place], [place] Calcium [Mass/Vol] 9.5 mg/dL Normal 8.4-10.4 [facility] Comment on above: Performed By: #### C MP3M, HEMDF, LIPA4, APTT, BILD3, PT #### [place] [address] [address] [place] Glucose [Mass/Vol] 124 mg/dL High 70-100 [facility] Comment on above: Performed By: #### C MP3M, HEMDF, LIPA4, APTT, BILD3, PT #### [place] [address] [address] [place] Protein [Mass/Vol] 7.2 g/dL Normal 6.3-8.2 [facility] Comment on above: Performed By: #### C MP3M, HEMDF, LIPA4, APTT, BILD3, PT #### [facility] [address] [place] [place], [place] Urea nitrogen [Mass/Vol] 6 mg/dL Low 7-20 [facility] Comment on above: Performed By: #### C MP3M, HEMDF, LIPA4, APTT, BILD3, PT #### [facility] [address] [place] [place], [place] AST [Catalytic activity/Vol] 471 U/L High 15-46 [facility] Comment on above: Performed By: #### C MP3M, HEMDF, LIPA4, APTT, BILD3, PT #### [place] [address] [place] Bilirubin [Mass/Vol] 2.3 mg/dL High 0.2-1.3 [facility] Comment on above: Performed By: #### C MP3M, HEMDF, LIPA4, APTT, BILD3, PT #### [place] [address] [place] CO2 [Moles/Vol] 22 mmol/L Normal 22-30 [facility] Comment on above: Performed By: #### C MP3M, HEMDF, LIPA4, APTT, BILD3, PT #### [address] Creatinine [Mass/Vol] 0.69 mg/dL Normal 0.52-1.25 [facility] Comment on above: Performed By: #### C MP3M, HEMDF, LIPA4, APTT, BILD3, PT #### [place] [address] [place], [place] GFR/1.73 sq M predicted among blacks MDRD (S/P/Bld) [Vol rate/Area] mL/min/{1.73_m2} Normal >60 [facility] Comment on above: Performed By: #### C MP3M, HEMDF, LIPA4, APTT, BILD3, PT #### [place] [address] [place] GFR/1.73 sq M predicted among non-blacks MDRD (S/P/Bld) [Vol rate/Area] mL/min/{1.73_m2} Normal >60 [facility] Comment on above: Result Comment: Sour ce- MDRD equation with creatinine calibration to IDMS(NKDEP) eGFR not recommended for drug dose adjustment Performed By: #### C MP3M, HEMDF, LIPA4, APTT, BILD3, PT #### [address] Chloride [Moles/Vol] 104 mmol/L Normal 98-107 [facility] Comment on above: Performed By: #### C MP3M, HEMDF, LIPA4, APTT, BILD3, PT #### [place] [address] [address] [place] Potassium [Moles/Vol] 4.0 mmol/L Normal 3.5-5.1 [facility] Comment on above: Performed By: #### C MP3M, HEMDF, LIPA4, APTT, BILD3, PT #### [place] [address] [place] Sodium [Moles/Vol] 137 mmol/L Normal 135-145 [facility] Comment on above: Performed By: #### C MP3M, HEMDF, LIPA4, APTT, BILD3, PT #### [place] [address] [place] Albumin [Mass/Vol] 4.1 g/dL Normal 3.5-5.0 [facility] Comment on above: Performed By: #### C MP3M, HEMDF, LIPA4, APTT, BILD3, PT #### [place] [address] [place] Comprehensive Metabolic Pane l w/ Reflex to MGon 06-13-2019 Albumin [Mass/Vol] 4.1 g/dL 3.5 - 5 g/dL [place] ALP [Catalytic activity/Vol] 478 U/L High 38 - 126 U/L [place] ALT [Catalytic activity/Vol] 676 U/L High 13 - 69 U/L [place] Anion gap [Moles/Vol] 10 mmol/L [place] AST [Catalytic activity/Vol] 471 U/L High 15 - 46 U/L [place] Bilirubin Ql (U) 2.3 mg/dL High 0.2 - 1.3 mg/dL [place] Calcium [Mass/Vol] 9.5 mg/dL 8.4 - 10. 4 mg/dL [place] Chloride [Moles/Vol] 104 mmol/L 98 - 10 7 mmol/L [place] CO2 [Moles/Vol] 22 mmol/L 22 - 30 mmol/L [place] Creatinine [Mass/Vol] 0.69 mg/dL 0.52 - 1.25 mg/dL [place] EGFR IF NonAfrican Israeli >60.0 >60 mL/min [place] Comment on above: Source- MDRD equatio n with creatinine calibration to IDMS(NKDEP) eGFR not recommended for drug dose adjustment GFR/1.73 sq M predicted among blacks MDRD (S/P/Bld) [Vol rate/Area] mL/min/{1.73_m2} >60 mL/min [place] Glucose [Mass/Vol] 124 mg/dL High 70 - 100 mg/dL [place] Interpretation and review of laboratory results Abnormal [place] Potassium [Moles/Vol] 4.0 mmol/L 3.5 - 5.1 mmol/L [place] Protein [Mass/Vol] 7.2 g/dL 6.3 - 8.2 g/dL [place] Sodium [Moles/Vol] 137 mmol/L 135 - 145 mmol/L [place] Urea nitrogen [Mass/Vol] 6 mg/dL Low 7 - 20 mg/dL [place] Test Performed by [facility], [address] [place] [id number] [place] [address] Glucose,Bedsideon 06-13-2019 Glucose [Mass/Vol] 153 mg/dL High 70-100 [facility] Comment on above: Result Comment: Test performed by glucose meter. Results may be 10%-15% lower than serum/plasma values. (CLIA ID [id number]) Performed By: #### C MP3M, HEMDF, LIPA4, APTT, BILD3, PT #### [address] [id number] Glucose [Mass/Vol] 122 mg/dL High 70-100 [facility] Comment on above: Result Comment: Test performed by glucose meter. Results may be 10%-15% lower than serum/plasma values. (CLIA ID [id number]) Performed By: #### C MP3M, HEMDF, LIPA4, APTT, BILD3, PT #### [address] Hemogram w/ Autodiffon 06-13 Abs Baso Cnt 0.0 10*3/uL Normal 0.0-0.2 [facility] Comment on above: Performed By: #### C MP3M, HEMDF, LIPA4, APTT, BILD3, PT #### [place] [address] [place], [place] Abs Neutrophile Cnt 3.2 10*3/uL Normal 1.8-7.0 [facility] Comment on above: Performed By: #### C MP3M, HEMDF, LIPA4, APTT, BILD3, PT #### [address] Basophils/100 WBC (Bld) 0.3 % Normal 0.0-2.0 [facility] Comment on above: Performed By: #### C MP3M, HEMDF, LIPA4, APTT, BILD3, PT #### [address] Eosinophils (Bld) [#/Vol] 0.3 10*3/uL Normal 0.0-0.5 [facility] Comment on above: Performed By: #### C MP3M, HEMDF, LIPA4, APTT, BILD3, PT #### [address] Eosinophils/100 WBC (Bld) 5.9 % Normal 1.0-6.0 [facility] Comment on above: Performed By: #### C MP3M, HEMDF, LIPA4, APTT, BILD3, PT #### [address] Erythrocyte distribution width (RBC) [Ratio] 14.8 % High 11.5-14.5 [facility] Comment on above: Performed By: #### C MP3M, HEMDF, LIPA4, APTT, BILD3, PT #### [address], [place] Granulocytes/100 WBC (Bld) 73.4 % Normal 40.0-80.0 [facility] Comment on above: Performed By: #### C MP3M, HEMDF, LIPA4, APTT, BILD3, PT #### [place] [address] [place] Hematocrit (Bld) [Volume fraction] 28.5 % Low 40.0-52.0 [facility] Comment on above: Performed By: #### C MP3M, HEMDF, LIPA4, APTT, BILD3, PT #### [place] [address] [place] Hemoglobin (Bld) [Mass/Vol] 9.8 g/dL Low 13.0-18.0 [facility] Comment on above: Performed By: #### C MP3M, HEMDF, LIPA4, APTT, BILD3, PT #### [place] [address] [place] Lymphocytes (Bld) [#/Vol] 0.5 10*3/uL Low 1.0-4.3 [facility] Comment on above: Performed By: #### C MP3M, HEMDF, LIPA4, APTT, BILD3, PT #### [place] [address] [place] Lymphocytes/100 WBC (Bld) 11.7 % Low 20.0-40.0 [facility] Comment on above: Performed By: #### C MP3M, HEMDF, LIPA4, APTT, BILD3, PT #### [place] [address] [place] MCH (RBC) [Entitic mass] 30.4 pg Normal 26.0-34.0 [facility] Comment on above: Performed By: #### C MP3M, HEMDF, LIPA4, APTT, BILD3, PT #### [place] [address] [place] MCHC (RBC) [Mass/Vol] 34.5 % Normal 32.0-36.0 [facility] Comment on above: Performed By: #### C MP3M, HEMDF, LIPA4, APTT, BILD3, PT #### [place] [address] [place] MCV (RBC) [Entitic vol] 88.0 fL Normal 80.0-98.0 [facility] Comment on above: Performed By: #### C MP3M, HEMDF, LIPA4, APTT, BILD3, PT #### [place] [address] [place] Monocytes (Bld) [#/Vol] 0.4 10*3/uL Normal 0.0-0.8 [facility] Comment on above: Performed By: #### C MP3M, HEMDF, LIPA4, APTT, BILD3, PT #### [address] Monocytes/100 WBC (Bld) 8.7 % Normal 2.0-10.0 [facility] Comment on above: Performed By: #### C MP3M, HEMDF, LIPA4, APTT, BILD3, PT #### [place] [address] [place] Platelet mean volume (Bld) [Entitic vol] 7.1 fL Low 7.4-10.4 [facility] Comment on above: Performed By: #### C MP3M, HEMDF, LIPA4, APTT, BILD3, PT #### [place] [address] [place] Platelets (Bld) [#/Vol] 247 10*3/uL Normal 140-440 [facility] Comment on above: Performed By: #### C MP3M, HEMDF, LIPA4, APTT, BILD3, PT #### [address] RBC (Bld) [#/Vol] 3.23 10*6/uL Low 4.40-5.90 [facility] Comment on above: Performed By: #### C MP3M, HEMDF, LIPA4, APTT, BILD3, PT #### [place] [address] [place] WBC (Bld) [#/Vol] 4.3 10*3/uL Normal 3.6-10.7 [facility] Comment on above: Performed By: #### C MP3M, HEMDF, LIPA4, APTT, BILD3, PT #### [facility] [address] [place], [place] Hepatitis Panel, Acuteon HAV IgM IA Qn (S) NOT DETECTED [place]Detect [place] Hep B Core Ab, IgM NOT DETECTED [place]Det[place] Hepatitis B Surface Ag NOT DETECTED [place]Detect[place] Hepatitis C Ab NOT DETECTED [place]Detect[place] Comment on above: Patients with DETECT ED Hepatitis C Ab results should have a new specimen submitted for supplemental testing with a Hepatitis C Quantitative RNA assay (viral load), if clinically indicated. Test Performed by [facility], [address] [place] [id number] [place] [address] Lipaseon 06-13-2019 Lipase [Catalytic activity/Vol] 540 U/L High 23-300 [facility] Comment on above: Performed By: #### L IPD2, LIPA4, HEPAN #### [facility] [address] [place], [place] Lipase [Catalytic activity/Vol] 540 U/L High 23 - 300 U/L [place] Lipase [Catalytic activity/Vol] 1607 U/L High 23-300 [facility] Comment on above: Performed By: #### C MP3M, HEMDF, LIPA4, APTT, BILD3, PT #### [facility] [address] [place], [place] Interpretation and review of laboratory results Abnormal [place], [place] Lipase [Catalytic activity/Vol] 1607 U/L High 23 - 300 U/L [place] Test Performed by [facility], [address] [place] [id number] [place] [address] Lipid Panelon 11-19-2019 Cholesterol [Mass/Vol] 233 mg/dL Abnormal < 200 [facility] Comment on above: Performed By: #### L IPD2, LIPA4, HEPAN #### [facility] [address] [place] [address] Cholesterol in HDL [Mass/Vol] 37 mg/dL Low 40-60 [facility] Comment on above: Performed By: #### L IPD2, LIPA4, HEPAN #### [facility] [address] [place] [address] Cholesterol.total/Cho lesterol in HDL [Mass ratio] 6 Normal [facility] Comment on above: Result Comment: Ref Range: < 3 Low Risk for CHD 3-6 Mod Risk for CHD > 6 High Risk for CHD Performed By: #### L IPD2, LIPA4, HEPAN #### [place] [address] [place] [address] Protein [Mass/Vol] 159 mg/dL Abnormal <100 [facility] Comment on above: Performed By: #### L IPD2, LIPA4, HEPAN #### [place] [address] [place] [address] Triglyceride [Mass/Vol] 187 mg/dL Abnormal <150 [facility] Comment on above: Performed By: #### L IPD2, LIPA4, HEPAN #### [place] [address] [place] [address] Cholesterol [Mass/Vol] 233 mg/dL Abnormal <200 [facility] [employer] Cholesterol in HDL [Mass/Vol] 37 mg/dL Low 40 - 60 mg/dL [facility], [place] Cholesterol in LDL [Mass/Vol] 159 mg/dL Abnormal <100 [facility], [employer] Cholesterol.total/Cho lesterol in HDL [Mass ratio] 6 {ratio} [facility] [employer] Comment on above: Ref Range: < 3 Low Risk for CHD 3-6 Mod Risk for CHD > 6 High Risk for CHD Triglyceride [Mass/Vol] 187 mg/dL Abnormal <150 [facility] [employer] [place], [place] Otheron 06-13-2019 Interpretation and review of laboratory results Abnormal [facility] [employer] Test Performed by [facility], [address], [place] [id number] [place] [address] Test Performed by [facility], [facility] [place] [address] [place], [place] POCT Glucoseon 06-13-2019 Glucose [Mass/Vol] 153 mg/dL High 70 - 100 mg/dL [place] Comment on above: Test performed by gl ucose meter. Results may be 10%-15% lower than serum/plasma values. (CLIA ID [id number]) Interpretation and review of laboratory results Abnormal [place] Test Performed by [facility], [facility] [place] [address] [place] Glucose [Mass/Vol] 122 mg/dL High 70 - 100 mg/dL [place] Comment on above: Test performed by gl ucose meter. Results may be 10%-15% lower than serum/plasma values. (CLIA ID [id number]) Interpretation and review of laboratory results Abnormal [place] Test Performed by [facility], [facility] [place] [address] [place] Prothrombin Timeon 9 INR Coag (PPP) [Relative time] 1.1 Normal 0.9-1.1 [facility] [employer] [facility] Comment on above: Result Comment: Sarmad mmended Anticoagulant Therapy: SEE BELOW ----- INR of 2.0 - 3.0 : - Prophylaxis of Venous Thrombosis (high-risk surgery) - Treatment of Venous Thrombosis - Treatment of Pulmonary Embolism (Includes tissue heart valves, Acute Myocardial Infarction to prevent systemic embolism, Valvular Heart Disease, and Atrial Fibrillation) ----- INR of 2.5 - 3.5 : - Mechanical Prosthetic Valves (high risk) - If oral anticoagulant therapy is used to prevent Myocardial Infarction Performed By: #### C MP3M, HEMDF, LIPA4, APTT, BILD3, PT #### [place] [address] [place] [address] PT Coag (PPP) [Time] 11.4 s Normal 9.0-12.0 [facility] [employer] Comment on above: Result Comment: . Performed By: #### C MP3M, HEMDF, LIPA4, APTT, BILD3, PT #### [facility] [address] [place] [address] Protime-INRon 06-13-2019 INR Coag (PPP) [Relative time] 1.1 {INR} [place], [place] Comment on above: Recommended Anticoag ulant Therapy: SEE BELOW ----- INR of 2.0 - 3.0 : - Prophylaxis of Venous Thrombosis (high-risk surgery) - Treatment of Venous Thrombosis - Treatment of Pulmonary Embolism (Includes tissue heart valves, Acute Myocardial Infarction to prevent systemic embolism, Valvular Heart Disease, and Atrial Fibrillation) ----- INR of 2.5 - 3.5 : - Mechanical Prosthetic Valves (high risk) - If oral anticoagulant therapy is used to prevent Myocardial Infarction PT Coag (PPP) [Time] 11.4 s 9 - 12 s [place] Comment on above: . Add On Lab Teston 03-09-2019 Sodium [Moles/Vol] Accepted [place], [place] Comment on above: Specimen available & acceptable for analysis. Basic Metabolic Panel w/ Ref sally to MGon 03-09-2019 Anion gap [Moles/Vol] 15 mmol/L [place] Calcium [Mass/Vol] 8.5 mg/dL 8.4 - 10. 4 mg/dL [place] Chloride [Moles/Vol] 108 mmol/L High 98 - 10 7 mmol/L [place] CO2 [Moles/Vol] 23 mmol/L 22 - 30 mmol/L [place] Creatinine [Mass/Vol] 0.58 mg/dL 0.52 - 1.25 mg/dL [place] EGFR IF NonAfrican Israeli >60.0 >60 mL/min [place] Comment on above: Source- MDRD equatio n with creatinine calibration to IDMS(NKDEP) eGFR not recommended for drug dose adjustment GFR/1.73 sq M predicted among blacks MDRD (S/P/Bld) [Vol rate/Area] mL/min/{1.73_m2} >60 mL/min [place] Glucose [Mass/Vol] 174 mg/dL High 70 - 100 mg/dL [place] Interpretation and review of laboratory results Abnormal [place] Potassium [Moles/Vol] 4.1 mmol/L 3.5 - 5.1 mmol/L [place] Sodium [Moles/Vol] 146 mmol/L High 135 - 145 mmol/L [place] Urea nitrogen [Mass/Vol] 10 mg/dL 7 - 20 mg/dL [place] Test Performed by [facility], [address], [place], [place] [address] Slight Turbidity, Slight Hemolysis. [place] CBC auto differentialon 02-23 Absolute Baso # 0.1 10*3/uL 0 - 0.2 10*3/uL [place] Absolute Neut # 2.6 10*3/uL 1.8 - 7 10*3/uL [place] Basophils/100 WBC (Bld) 1.4 % 0 - 2 % [place] Eosinophils (Bld) [#/Vol] 0.2 10*3/uL 0 - 0.5 10*3/uL [place] Eosinophils/100 WBC (Bld) 4.7 % 1 - 6 % [place] Erythrocyte distribution width (RBC) [Ratio] 15.1 % High 11.5 - 14.5 % [place] Granulocytes/100 WBC (Bld) 65.8 % 40 - 80 % [place] Hematocrit (Bld) [Volume fraction] 32.8 % Low 40 - 52 % [place] Hemoglobin (Bld) [Mass/Vol] 11.3 g/dL Low 13 - 18 g/dL [place] Interpretation and review of laboratory results Abnormal [place] Lymphocytes (Bld) [#/Vol] 0.8 10*3/uL Low 1 - 4.3 10*3/uL [place] Lymphocytes/100 WBC (Bld) 19.1 % Low 20 - 40 % [place] MCH (RBC) [Entitic mass] 30.2 pg 26 - 34 pg [place] MCHC (RBC) [Mass/Vol] 34.5 % 32 - 36 % [place] MCV (RBC) [Entitic vol] 87.6 fL 80 - 98 fL [place] Monocytes (Bld) [#/Vol] 0.4 10*3/uL 0 - 0.8 10*3/uL [facility], [place] Monocytes/100 WBC (Bld) 9.0 % 2 - 10 % [place] Platelet mean volume (Bld) [Entitic vol] 6.6 fL Low 7.4 - 10.4 fL [place] Platelets (Bld) [#/Vol] 225 10*3/uL 140 - 440 10*3/uL [facility], [place] RBC (Bld) [#/Vol] 3.75 10*6/uL Low 4.4 - 5.9 10*6/uL [facility], [place] WBC (Bld) [#/Vol] 4.0 10*3/uL 3.6 - 10.7 10*3/uL [place] Test Performed by [facility], [address] [place], [place], [place] [id number] [place] [address] CTA HEAD NECK W WO CONTRASTo n 03-09-2019 [facility] Incoming Radiology Results From [facility] - 03/09/2019 4:37 PM EDT Patient Name: AGA ADAN ---CT--- Exam Date/Time 03/09/2019 11:18:16 EDT Exam CTA Head/Neck w/ + w/o contrast Ordering Physician MD JOURDAN, LAVINIA GATES Accession Number [id number] CPT4 Codes Q9967 (CT ISOVUE 370MG/[id number] ), 08791 (), 87737 () Reason For Exam anisocoria, rule out aneurysms Report CTA HEAD AND NECK WITH CONTRAST CLINICAL INDICATION: Anisocoria, evaluate for aneurysm. Occipital headache. CT angiographic images of the neck and intracranial vessels were performed following the bolus administration of intravenous contrast. The data set was then processed by myself on a separate workstation, with reconstructed three dimensional and shaded surface renderings of the extracranial and intracranial vessels. NASCET criteria was used for calculation of carotid artery stenosis. COMPARISON: MRI brain performed 03/09/2019 FINDINGS: CT angiographic study of the brain demonstrates patent flow in the right and left internal carotid arteries. The carotid siphons are widely patent, with no atherosclerotic changes nor evidence of hemodynamically significant stenosis. There is filling of the right and left anterior, middle, and posterior cerebral circulation vessels. There are no arterial cutoffs. There is no significant intracranial stenosis. There is no aneurysm or vascular malformation. The vertebral arteries are patent. The vertebrobasilar circulation is widely patent, with no atherosclerotic changes or significant stenosis. The basilar artery is widely patent. The vertebrobasilar branch vessels are all patent, with no evidence of critical stenosis. There is no evidence of aneurysm or vascular malformation in the posterior circulation vessels. There is patent flow in the right and left common carotid arteries. There is patent flow in the right and left cervical vertebral arteries. The right carotid bifurcation demonstrates no significant atherosclerotic changes or stenosis (0% by NASCET criteria). There is patent flow in the upper cervical right internal carotid artery. The left carotid bifurcation demonstrates no significant atherosclerotic changes or stenosis (0% by NASCET criteria). There is patent flow in the upper cervical left internal carotid artery. There is no evidence of dissection in the carotid or vertebral vessels. IMPRESSION: Normal CT angiogram of the intracranial vessels, with no arterial cut-offs or and no significant intracranial stenosis. No evidence of aneurysm or vascular malformation. No significant carotid bifurcation stenosis. The cervical vertebral arteries are patent. Report Dictated on --- Final --- Dictating Physician: MD HUNG JONATHAN R Signed Date and Time: 03/09/2019 4:36 pm Signed by: MD HUNG JONATHAN R Transcribed Date and Time: 03/09/2019 4:37 [place] Patient Name: AGA SO ---CT--- Exam Date/Time 03/09/2019 11:18:16 EDT Exam CTA Head/Neck w/ + w/o contrast Ordering Physician MD JOURDAN, LAVINIA GATES Accession Number [id number] CPT4 Codes Q9967 (CT ISOVUE 370MG/[id number] ), 37979 (), 60242 () Reason For Exam anisocoria, rule out aneurysms Report CTA HEAD AND NECK WITH CONTRAST CLINICAL INDICATION: Anisocoria, evaluate for aneurysm. Occipital headache. CT angiographic images of the neck and intracranial vessels were performed following the bolus administration of intravenous contrast. The data set was then processed by myself on a separate workstation, with reconstructed three dimensional and shaded surface renderings of the extracranial and intracranial vessels. NASCET criteria was used for calculation of carotid artery stenosis. COMPARISON: MRI brain performed 03/09/2019 FINDINGS: CT angiographic study of the brain demonstrates patent flow in the right and left internal carotid arteries. The carotid siphons are widely patent, with no atherosclerotic changes nor evidence of hemodynamically significant stenosis. There is filling of the right and left anterior, middle, and posterior cerebral circulation vessels. There are no arterial cutoffs. There is no significant intracranial stenosis. There is no aneurysm or vascular malformation. The vertebral arteries are patent. The vertebrobasilar circulation is widely patent, with no atherosclerotic changes or significant stenosis. The basilar artery is widely patent. The vertebrobasilar branch vessels are all patent, with no evidence of critical stenosis. There is no evidence of aneurysm or vascular malformation in the posterior circulation vessels. There is patent flow in the right and left common carotid arteries. There is patent flow in the right and left cervical vertebral arteries. The right carotid bifurcation demonstrates no significant atherosclerotic changes or stenosis (0% by NASCET criteria). There is patent flow in the upper cervical right internal carotid artery. The left carotid bifurcation demonstrates no significant atherosclerotic changes or stenosis (0% by NASCET criteria). There is patent flow in the upper cervical left internal carotid artery. There is no evidence of dissection in the carotid or vertebral vessels. IMPRESSION: Normal CT angiogram of the intracranial vessels, with no arterial cut-offs or and no significant intracranial stenosis. No evidence of aneurysm or vascular malformation. No significant carotid bifurcation stenosis. The cervical vertebral arteries are patent. Report Dictated on --- Final --- Dictating Physician: MD HUNG JONATHAN R Signed Date and Time: 03/09/2019 4:36 pm Signed by: MD HUNG JONATHAN R Transcribed Date and Time: 03/09/2019 4:37 [facility] Lipid Panelon 03-09-2019 Cholesterol [Mass/Vol] 295 mg/dL Abnormal <200 [facility] [place] Cholesterol in HDL [Mass/Vol] 25 mg/dL Low 40 - 60 mg/dL [place] Cholesterol in LDL [Mass/Vol] =- Abnormal <100 mg/dL [place], [place] Comment on above: LDL unable to calcul ate, Trig >400 mg/dL Suggest ordering LDL-Chol,Direct. Cholesterol.total/Cho lesterol in HDL [Mass ratio] 12 {ratio} [place], [place] Comment on above: Ref Range: < 3 Low Risk for CHD 3-6 Mod Risk for CHD > 6 High Risk for CHD Triglyceride [Mass/Vol] 1511 mg/dL Abnormal <150 [place] Test Performed by [facility], [address] [place], [place], [place] [address] Slight Turbidity, Slight Hemolysis. [place] MRI BRAIN W WO CONTRASTon Patient Name: AGA SO ---MRI--- Exam Date/Time 03/09/2019 11:37:15 EDT Exam MRI Brain w/ + w/o Contrast Ordering Physician MD JOURDAN, LAVINIA GATES Accession Number [id number] CPT4 Codes 02971 () Reason For Exam anisocoria, occipital headache Report Indication: Occipital headaches. Unequal pupil size. MRI of the brain with and without contrast. 17 mL of gadolinium utilized. Multiplanar multisequence imaging of the brain performed. Diffusion images show no signal abnormalities to indicate a recent ischemic event. Ventricles are normal in size for the patient's age and midline in position. No abnormal extra-axial fluid collections. No areas of mass effect. Scattered T2 hyperintense signal changes in the periventricular and subcortical white matter are nonspecific and most likely represents small vessel chronic ischemic changes. No evidence of a recent or remote cortical infarct. Internal auditory canals are symmetric. There is a normal-appearing signal flow void in the intracranial vertebral arteries, basilar artery, carotid artery and proximal middle cerebral arteries. Corpus callosum, optic chiasm, pituitary gland, heather and craniovertebral junction are within normal limits. Following contrast administration, no abnormal enhancement of the brain or meninges. No discrete enhancing lesions. The orbits are symmetric. There is a lobulated mucosal retention cyst in the left maxillary sinus. This cyst measures 2.2 cm in greatest dimension. IMPRESSION: No acute intracranial process. Mild nonspecific white matter changes. Report Dictated on --- Final --- Dictating Physician: MD SHETTY LAURA Signed Date and Time: 03/09/2019 11:47 am Signed by: MD SHETTY LAURA Transcribed Date and Time: 03/09/2019 11:48 [place], [place] [facility], [facility] Incoming Radiology Results From [facility] - 03/09/2019 11:48 AM EDT Patient Name: AGA ADAN ---MRI--- Exam Date/Time 03/09/2019 11:37:15 EDT Exam MRI Brain w/ + w/o Contrast Ordering Physician MD JOURDAN, LAVINIA GATES Accession Number [id number] CPT4 Codes 69214 () Reason For Exam anisocoria, occipital headache Report Indication: Occipital headaches. Unequal pupil size. MRI of the brain with and without contrast. 17 mL of gadolinium utilized. Multiplanar multisequence imaging of the brain performed. Diffusion images show no signal abnormalities to indicate a recent ischemic event. Ventricles are normal in size for the patient's age and midline in position. No abnormal extra-axial fluid collections. No areas of mass effect. Scattered T2 hyperintense signal changes in the periventricular and subcortical white matter are nonspecific and most likely represents small vessel chronic ischemic changes. No evidence of a recent or remote cortical infarct. Internal auditory canals are symmetric. There is a normal-appearing signal flow void in the intracranial vertebral arteries, basilar artery, carotid artery and proximal middle cerebral arteries. Corpus callosum, optic chiasm, pituitary gland, heather and craniovertebral junction are within normal limits. Following contrast administration, no abnormal enhancement of the brain or meninges. No discrete enhancing lesions. The orbits are symmetric. There is a lobulated mucosal retention cyst in the left maxillary sinus. This cyst measures 2.2 cm in greatest dimension. IMPRESSION: No acute intracranial process. Mild nonspecific white matter changes. Report Dictated on --- Final --- Dictating Physician: MD SHETTY LAURA Signed Date and Time: 03/09/2019 11:47 am Signed by: SENA, MD, OCTAVIA Transcribed Date and Time: 03/09/2019 11:48 [facility] [employer] [place] Otheron 03-09-2019 Interpretation and review of laboratory results Abnormal [facility] [employer] [facility] [place] Test Performed by [employer] [facility], [address], [place], [place] [address] [place], [place] POCT Glucoseon 03-09-2019 Glucose [Mass/Vol] 232 mg/dL High 70 - 100 mg/dL [place] Comment on above: Test performed by gl ucose meter. Results may be 10%-15% lower than serum/plasma values. (CLIA ID [id number]) Interpretation and review of laboratory results Abnormal [facility] [employer] [facility] [place] Test Performed by [employer] [facility], [address], [place], [place] [address] [place] Glucose [Mass/Vol] 194 mg/dL High 70 - 100 mg/dL [place], [place] Comment on above: Test performed by gl ucose meter. Results may be 10%-15% lower than serum/plasma values. (CLIA ID [id number]) Glucose [Mass/Vol] 191 mg/dL High 70 - 100 mg/dL [place], [place] Comment on above: Test performed by gl ucose meter. Results may be 10%-15% lower than serum/plasma values. (CLIA ID [id number]) Interpretation and review of laboratory results Abnormal [facility] [employer] [place] Test Performed by [employer] [facility], [address], [place], [place] [address] [place] SERUM DRUG SCREENon 03-09-20 19 Acetaminophen [Mass/Vol] <10.0 10 - 20 mg/L [place], [place] Salicylate, Serum NONE DETECTED 0 - 25 mg/dL [place], [place] Comment on above: NORMAL RANGE Analgesic 2-10 Anti-inflammatory 10-25 Sodium [Moles/Vol] None Detected [place], [place] Specimen type Nom (Spec) Serum [place] Tricyclic antidepressants Screen Ql (U) Negative [place] Comment on above: Tricyclic antidepres sants have been screened for by immunoassay at 300 ng/mL threshold. Test Performed by [employer] [facility], [address] [place] [address] [place] Urine Drug Screenon 03-09-20 19 Amphetamines, urine Negative [facility], [place] Barbiturates, Ur Negative [facility] Benzodiazepine Ur Qual Negative [facility] Cocaine Metabolites, Ur Negative [facility] Methadone, Urine Negative [facility] Opiates, Urine Positive [facility] Oxycodone Screen, Ur Negative [facility], [place] PCP, Urine Negative [place] Comment on above: The expected value f or all of the drugs listed above is Negative. The following drugs or drug groups have been screened for by Immunoassay at the following thresholds: Amphetamine class (1000 ng/mL), Barbiturates (200 ng/mL), Benzodiazepines (200 ng/mL), Cocaine (300 ng/mL), Methadone (300 ng/mL), Opiates (300 ng/mL), Oxycodone (100 ng/mL), and PCP (25 ng/mL). NOTE: These results are for medical treatment only. Analysis performed using non-forensic procedures. POSITIVE results are NOT confirmed by a more specific alternative method unless requested. If confirmation is needed, request confirmation under separate order. Test Performed by [facility], [address], [place], [place] [address] [place] Basic Metabolic Panelon 02-23 Anion gap [Moles/Vol] 16 mmol/L [place] Calcium [Mass/Vol] 10.2 mg/dL 8.4 - 10. 4 mg/dL [place] Chloride [Moles/Vol] 99 mmol/L 98 - 10 7 mmol/L [place] CO2 [Moles/Vol] 25 mmol/L 22 - 30 mmol/L [place] Creatinine [Mass/Vol] 0.73 mg/dL 0.52 - 1.25 mg/dL [place] EGFR IF NonAfrican Israeli >60.0 >60 mL/min [place] Comment on above: Source- MDRD equatio n with creatinine calibration to IDMS(NKDEP) eGFR not recommended for drug dose adjustment GFR/1.73 sq M predicted among blacks MDRD (S/P/Bld) [Vol rate/Area] mL/min/{1.73_m2} >60 mL/min [place] Glucose [Mass/Vol] 165 mg/dL High 70 - 100 mg/dL [place] Interpretation and review of laboratory results Abnormal [place] Potassium [Moles/Vol] 4.0 mmol/L 3.5 - 5.1 mmol/L [place] Sodium [Moles/Vol] 139 mmol/L 135 - 145 mmol/L [place] Urea nitrogen [Mass/Vol] 12 mg/dL 7 - 20 mg/dL [place] Test Performed by [facility], [address] , [address] CSF Cell Count with Gavin toddlon 03-08-2019 Appearance (U) see below [place] Comment on above: Clear and colorless Nucleated Cells, CSF 0 {cells}/uL 0 - 5 {cells}/uL [place] Red blood cells count, CSF 229 {RBC}/uL [place] Sodium [Moles/Vol] see below [place] Comment on above: Clear and colorless Test Performed by [facility], [address] , [address] HEAD WO CONTRASTon 2018 [facility] 3:39 PM EDT Patient Name: AGA ADAN ---CT--- Exam Date/Time 03/08/2019 15:29:[address] Head or Brain w/o Contrast Ordering Physician MD MELYSSA, AGA Rent[facility] Accession Number [id number] CPT4 Codes 84083 () Reason For Exam STROKE Report CT HEAD WITHOUT CONTRAST CLINICAL INDICATION: Stroke, headache and blurred vision Axial CT images of the brain were obtained without intravenous contrast. Coronal and sagittal reformatted images were also made available for interpretation. COMPARISON: 11/28/2016. FINDINGS: The ventricles, sulci, and cisterns are within normal limits for the patient's age. No high attenuation material is seen to suggest hemorrhage. There is no evidence for acute cortical infarction. No midline shift or mass effect is noted. No fracture is identified on the bone windows. The visualized portion of the paranasal sinuses appear clear. IMPRESSION: Unremarkable noncontrast CT of the brain. Report Dictated on Workstation: [id number] --- Final --- Dictating Physician: MD HUNG JONATHAN R Signed Date and Time: 03/08/2019 3:38 pm Signed by: MD HUNG JONATHAN R Transcribed Date and Time: 03/08/2019 3:39 [place] Patient Name: AGA SO ---CT--- Exam Date/Time 03/08/2019 15:29:[address] Head or Brain w/o Contrast Ordering Physician MD MELYSSA, AGA Renteria Accession Number [id number] CPT4 Codes 24095 () Reason For Exam STROKE Report CT HEAD WITHOUT CONTRAST CLINICAL INDICATION: Stroke, headache and blurred vision Axial CT images of the brain were obtained without intravenous contrast. Coronal and sagittal reformatted images were also made available for interpretation. COMPARISON: 11/28/2016. FINDINGS: The ventricles, sulci, and cisterns are within normal limits for the patient's age. No high attenuation material is seen to suggest hemorrhage. There is no evidence for acute cortical infarction. No midline shift or mass effect is noted. No fracture is identified on the bone windows. The visualized portion of the paranasal sinuses appear clear. IMPRESSION: Unremarkable noncontrast CT of the brain. Report Dictated on Workstation: [id number] --- Final --- Dictating Physician: MD HUNG JONATHAN R Signed Date and Time: 03/08/2019 3:38 pm Signed by: MD HUNG JONATHAN R Transcribed Date and Time: 03/08/2019 3:39 [place] GLUCOSE, CSFon 03-08-2019 Glucose, CSF 97 mg/dL High 40 - 70 mg/dL [place] Interpretation and review of laboratory results Abnormal [place] Hemogram (CBC)on 03-08-2019 Erythrocyte distribution width (RBC) [Ratio] 15.2 % High 11.5 - 14.5 % [place] Hematocrit (Bld) [Volume fraction] 39.0 % Low 40 - 52 % [place] Hemoglobin (Bld) [Mass/Vol] 13.4 g/dL 13 - 18 g/dL [place] Interpretation and review of laboratory results Abnormal [place] MCH (RBC) [Entitic mass] 30.0 pg 26 - 34 pg [place] MCHC (RBC) [Mass/Vol] 34.3 % 32 - 36 % [place] MCV (RBC) [Entitic vol] 87.4 fL 80 - 98 fL [place] Platelet mean volume (Bld) [Entitic vol] 7.2 fL Low 7.4 - 10.4 fL [place] Platelets (Bld) [#/Vol] 308 10*3/uL 140 - 440 10*3/uL [place] RBC (Bld) [#/Vol] 4.46 10*6/uL 4.4 - 5.9 10*6/uL [place] WBC (Bld) [#/Vol] 5.0 10*3/uL 3.6 - 10.7 10*3/uL [place] Test Performed by [facility], [address] [place] [address] Lumbar Punctureon 03-08-2019 Aga Ragsdale MD 03/08/2019 6:41 PM Lumbar Puncture Date/Time: 03/08/2019 6:39 PM Performed by: Aga Ragsdale MD Authorized by: Aga Ragsdale MD Consent: Consent obtained: Written Consent given by: Patient Risks discussed: Bleeding, infection, nerve damage, headache and pain Alternatives discussed: No treatment, delayed treatment and alternative treatment Pre-procedure details: Procedure purpose: Diagnostic Anesthesia (see MAR for exact dosages): Anesthesia method: Local infiltration Local anesthetic: Lidocaine 1% w/o epi Procedure details: Lumbar space: L3-L4 interspace Patient position: L lateral decubitus Needle gauge: 22 Needle type: Dean pencil tip Ultrasound guidance: no Number of attempts: 2 Opening pressure (cm H2O): 5 Fluid appearance: Clear Tubes of fluid: 4 Post-procedure: Puncture site: Adhesive bandage applied Patient tolerance of procedure: Tolerated well, no immediate complications [facility] Metabolic Panelon 03-08-2019 Sodium [Moles/Vol] see below [place], [place] Comment on above: Clear and colorless Otheron 03-08-2019 Test Performed by [facility], [address] , [place], [place] [id number] [place] [address] PROTEIN, CSFon 03-08-2019 Protein, CSF 50.2 mg/dL 12 - 60 mg/dL [facility] [place] XR CHEST PORTABLEon 03-08-20 19 Patient Name: AGA SO ---Diagnostic Radiology--- Exam Date/Time 03/08/2019 15:19:45 EDT Exam CR Chest Portable Ordering Physician MD RAGSDALE MARK D Accession Number [id number] CPT4 Codes 37567 () Reason For Exam Possible aspiration Report PORTABLE CHEST X-RAY CLINICAL INDICATION: Aspiration A portable frontal view of the chest was obtained. COMPARISON: 02/01/2019 FINDINGS: The cardiac silhouette is within normal limits. No focal consolidation is seen within the lungs. There is no large pleural effusion or pneumothorax. Old right-sided rib fractures are again noted. Bony structures are otherwise unremarkable. IMPRESSION: No acute cardiopulmonary disease. Report Dictated on Workstation: [id number] --- Final --- Dictating Physician: MD HUNG JONATHAN R Signed Date and Time: 03/08/2019 3:26 pm Signed by: MD HUNG JONATHAN R Transcribed Date and Time: 03/08/2019 3:28 [place], [place] [facility], [facility] Incoming Radiology Results From [facility] - 03/08/2019 3:28 PM EDT Patient Name: AGA ADAN ---Diagnostic Radiology--- Exam Date/Time 03/08/2019 15:19:45 EDT Exam CR Chest Portable Ordering Physician MD RAGSDALE MARK D Accession Number [id number] CPT4 Codes 73957 () Reason For Exam Possible aspiration Report PORTABLE CHEST X-RAY CLINICAL INDICATION: Aspiration A portable frontal view of the chest was obtained. COMPARISON: 02/01/2019 FINDINGS: The cardiac silhouette is within normal limits. No focal consolidation is seen within the lungs. There is no large pleural effusion or pneumothorax. Old right-sided rib fractures are again noted. Bony structures are otherwise unremarkable. IMPRESSION: No acute cardiopulmonary disease. Report Dictated on Workstation: [facility] --- Final --- Dictating Physician: MD HUNG JONATHAN R Signed Date and Time: 03/08/2019 3:26 pm Signed by: MD HUGN JONATHAN R Transcribed Date and Time: 03/08/2019 3:28 [place] Vital Signs Date Time Vital Sign Value Performing Clinician Facility 09-28-2022 04:15-0500 Diastolic Blood Pressure Non-Invasive [address] DENICE GUILLEN MD [facility] 09-28-2022 04:15-0500 Heart rate 70 /min DR DENICE GUILLEN MD [facility] 09-28-2022 04:15-0500 Reason For Taking VItal Signs DR DENICE GUILLEN MD [facility] 09-28-2022 04:15-0500 Respiratory rate 16 /min DR DENICE GUILLEN MD [facility] 09-28-2022 04:15-0500 Systolic Blood Pressure Non-Invasive [address] DENICE GUILLEN MD [facility] 09-28-2022 02:11-[address] DENICE GUILLEN MD [facility] 09-28-2022 02:11-0500 Body temperature 99.14 [degF] DR DENICE GUILLEN MD [facility] 09-28-2022 02:11-0500 Diastolic Blood Pressure Non-Invasive [address] DENICE GUILLEN MD [facility] 09-28-2022 02:11-0500 Heart rate 71 /min DR DENICE GUILLEN MD [facility] 09-28-2022 02:11-0500 Respiratory rate 16 /min DR DENICE GUILLEN MD [facility] 09-28-2022 02:11-0500 Systolic Blood Pressure Non-Invasive [address] DENICE GUILLEN MD [facility] 11-26-2020 07:55-0400 Body temperature 98.01 [degF] Della Nevilleaci DO Work Phone: [facility] Work Phone: 11-26-2020 07:55-0400 Diastolic blood pressure 92 mm[Hg] Della Nevilleaci DO Work Phone: [facility] Work Phone: 11-26-2020 07:55-0400 Heart rate 67 /min Della Nevilleaci DO Work Phone: [facility] Work Phone: 11-26-2020 07:55-0400 Respiratory rate 16 /min Della Nevilleaci DO Work Phone: [facility] Work Phone: 11-26-2020 07:55-0400 SaO2% (BldA) [Mass fraction] 98 % Della Pallaci DO Work Phone: [facility] Work Phone: 11-26-2020 07:55-0400 Systolic blood pressure 151 mm[Hg] Della Pallaci DO Work Phone: [facility] Work Phone: 11-24-2020 06:16-0400 Body height 170.2 cm Della Nevilleaci DO Work Phone: [facility] Work Phone: 11-24-2020 06:16-0400 Body mass index (BMI) [Ratio] 31.32 kg/m2 Della Pallaci DO Work Phone: [facility] Work Phone: 11-24-2020 06:16-0400 Body weight 90.72 kg Della Gonzales DO Work Phone: [facility] Work Phone: 02-21-2020 02:07-0400 Body Temperature 97.7 [degF] [facility] [place] 02-21-2020 02:07-0400 BP Diastolic 82 mm[Hg] José Miguel Orin [facility] [place] 02-21-2020 02:07-0400 BP Systolic 132 mm[Hg] José Miguel Orin [facility] [place] 02-21-2020 02:07-0400 Pulse (Heart Rate) 77 /min José Miguel Orin [facility] 02-21-2020 02:07-0400 Respiratory Rate 18 /min José [facility] [place] 02-20-2020 21:17-0400 Pulse Oximetry 99 % José Miguel Orin [facility] [place] 06-16-2019 18:05-0500 Body Temperature 98.01 [degF] Sharri Thee [facility], [place] 06-16-2019 18:05-0500 BP Diastolic 76 mm[Hg] [facility] [place] 06-16-2019 18:05-0500 BP Systolic 143 mm[Hg] Sharri Thee [facility] 06-16-2019 18:05-0500 Pulse (Heart Rate) 63 /min Sharri Thee [facility] 06-16-2019 18:05-0500 Pulse Oximetry 99 % Sharri Thee [facility] 06-16-2019 18:05-0500 Respiratory Rate 16 /min [facility] [place] 06-15-2019 13:51-0500 Height 170.2 cm Sharri Thee [facility] 06-12-2019 23:39-0500 BMI (Body Mass Index) 28.98 kg/m2 Sharri Serrano [facility] [place] 06-12-2019 23:39-0500 Body weight 83.92 kg [facility], [place] 03-09-2019 15:16-0400 Body Temperature 97.81 [degF] Aga Ragsdale [employer], [place] 03-09-2019 15:16-0400 BP Diastolic 88 mm[Hg] [facility] [place] 03-09-2019 15:16-0400 BP Systolic 140 mm[Hg] [facility] [place] 03-09-2019 15:16-0400 Pulse (Heart Rate) 65 /min Aga Reyesell [facility] [place] 03-09-2019 15:16-0400 Pulse Oximetry 97 % [facility]ags[facility] , [place] 03-09-2019 15:16-0400 Respiratory Rate 18 /min Aga Ragsdale [facility] [place] NEGATED: Highlighted [id number] 09:46-0400 Body height 170.18 cm Elizabeth Darian AT [facility] Work Phone: NEGATED: Highlighted [id number] 09:46-0400 Body height 170 cm Elizabeth Darian AT [facility] Work Phone: NEGATED: Highlighted [id number] 09:46-0400 Body mass index (BMI) [Ratio] 31.44 kg/m2 Elizabeth Darian AT [facility] Work Phone: NEGATED: Highlighted [id number] 09:46-0400 Body weight 90.72 kg Elizabeth Darian AT [facility] Work Phone: NEGATED: Highlighted [id number] 09:46-0400 Body weight 91 kg Elizabeth Darian AT [facility] Work Phone: Encounters Encounter Date Encounter Type Care Provider Facility Start: 11-25-2025 ambulatory Alba North ity:[facility] Start: 02-20-2025 End: 02-20-[address] Alba Tena DO Work Phone: -Ultrasound [facility] Start: 02-20-2025 End: 02-20-[address] Sarkis Alvarez MD -Ultrasound [facility] Work Phone: Start: 02-20-2025 End: 02-20-2025 ambulatory Sarkis Alvarez Facility:[facility] Start: 08-17-2024 End: 08-21-[address] ALBA TENA DO Facility:[facility] Start: 08-17-2024 End: 08-21-[address] ALBA TENA DO [facility] Start: 08-14-2024 End: 08-14-2024 ambulatory Sarkis Alvarez Facility:[facility] Start: 08-09-2024 End: 08-09-2024 ambulatory Sarkis Alvarez Facility:[facility] Start: 01-21-2024 End: 01-25-[address] ALBA TENA DO Facility:[facility] Start: 11-03-2023 End: 11-03-[address] ALBA TENA DO Facility:[facility] Start: 11-03-2023 End: 11-03-[address] ALBA TENA DO [facility] Start: 07-08-2023 End: 07-12-[address] ALBA TENA DO Facility:[facility] Start: 07-08-2023 End: 07-12-[address] ALBA TENA DO [facility] Start: 05-26-2023 End: 05-30-[address] ALBA TENA DO Facility:[facility] Start: 01-29-[address] ALBA TENA DO Fac ility:[facility] Start: 12-19-2022 End: 12-19-2022 Emergency department patient visit Alba Tena DO Work Phone: [facility] Start: 09-28-2022 End: 09-28-2022 Emergency department patient visit DR DENICE GUILLEN MD [facility] Start: 04-03-2022 End: 04-03-2022 Patient encounter procedure MODESTO BEAVER [facility] Start: 02-27-2022 End: 02-27-[address] SARKIS ALVAREZ MD [facility] Start: 01-28-2022 End: 01-28-[address] ALBA TENA DO [facility] Start: 10-09-2021 End: 10-13-[address] ALBA TENA DO [facility] Start: 10-06-2021 End: 10-06-[address] ALBA TENA DO [facility] Start: 06-05-2021 End: 06-05-[address] ALBA TENA DO [facility] Start: 05-16-2021 End: 05-16-[address] ALBA TENA DO [facility] Start: 11-24-2020 End: 11-26-2020 Evaluation and management of inpatient Della Gonzales DO Work Phone: [facility] Comment on above: 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) Start: 02-20-2020 End: 02-21-2020 Emergency department patient visit José Miguel Sr Work Phone: [facility] Comment on above: Eastman's palsy (Primar y Dx); Iron deficiency anemia due to chronic blood loss Start: 06-12-2019 End: 06-16-2019 Evaluation and management of inpatient Sharri Serrano Work Phone: [facility] Start: 03-08-2019 End: 03-09-2019 Emergency department patient visit Aga Ragsdale Work Phone: [facility] TE[facility] Comment on above: Acute intractable he adache, unspecified headache type (Primary Dx); Cervical pain (neck) Start: 03-06-2019 End: 03-06-2019 Subsequent hospital visit by physician Evette Perry Work Phone: [facility] Comment on above: Pancreatic lesion Procedures Date Procedure Procedure Detail Performing Clinician Start: 02-20-2025 Ultrasound elastogra phy of liver Dr. Alba Tena DO Work Phone: Start: 07-17-2022 Hand structure (body structure) DR DENICE GUILLEN MD Comment on above: Left hand, due to fa ll Start: 10-10-2021 End: 10-10-2021 A60 ANKLE SUPPORT (AIRCAST) Rohit Lake PAC Work Phone: Start: 10-10-2021 End: 10-11-2021 BP scrn no perf at interval Rohit Lake PAC Work Phone: Start: 10-10-2021 End: 10-11-2021 Calc BMI abv up katt f/u Rohit Lake PAC Work Phone: Start: 10-10-2021 End: 10-11-2021 Current tobacco non-user cad cap copd pv dm Rohit Lake PAC Work Phone: Start: 10-10-2021 End: 10-11-2021 Docrev cur meds by elig clin Rohit Lake PAC Work Phone: Start: 10-10-2021 End: 10-11-2021 No doc of pain Rohit Lake PAC Work Phone: Start: 10-10-2021 End: 10-11-2021 Patient encounter procedure Rohit Lake PAC Work Phone: Start: 10-10-2021 End: 10-10-2021 Radex foot complete minimum 3 views Rohit Lake PAC Work Phone: Start: 03-20-2021 H/O: surgery Status post ri ght foot surgery Elizabeth Yoder AT Start: 11-26-2020 Gluc bld gluc mntr d ev cleared fda spec home use Della Lopez MD Work Phone: Start: 11-26-2020 Gluc bld gluc mntr d ev cleared fda spec home use Della Lopez MD Work Phone: Start: 11-26-2020 Assay of lipase Josselin Perry MD Work Phone: Start: 11-25-2020 Gluc bld gluc mntr d ev cleared fda spec home use Della Lopez MD Work Phone: Start: 11-25-2020 End: 11-25-2020 Radiologic examination ankle 2 views Evette Perry MD Work Phone: Start: 11-25-2020 Computed tomography of abdomen and pelvis with contrast Peyman Martinez DO Work Phone: Start: 11-25-2020 End: 11-25-2020 Hemoglobin glycosylated a1c Evette Perry MD Work Phone: Start: 11-25-2020 Ct head/brain w/o co ntrast material Evette Perry MD Work Phone: Start: 11-25-2020 Gluc bld gluc mntr d ev cleared fda spec home use Della Lopez MD Work Phone: Start: 11-25-2020 Us abdominal real ti me w/image limited Della Lopez MD Work Phone: Start: 11-25-2020 End: 11-25-2020 Assay of lipase Evette Perry MD Work Phone: Start: 11-24-2020 Gluc bld gluc mntr d ev cleared fda spec home use Della Lopez MD Work Phone: Start: 11-24-2020 Gluc bld gluc mntr d ev cleared fda spec home use Della Gonzales DO Work Phone: Start: 11-24-2020 Radiologic exam ches t single view Della Gonzales DO Work Phone: Start: 11-24-2020 Comprehensive metabo lic panel Della Gonzales DO Work Phone: Start: 11-24-2020 Ecg routine ecg w/le ast 12 lds w/i&r Della Gonzales DO Work Phone: Start: 10-31-2020 Nasal (qualifier value) DR ALBA TENA DO Comment on above: Dr. Jenkins Start: 10-16-2020 Foot structure (body structure) DR ALBA TENA DO Comment on above: Right - Dr. Hernandez Start: 02-21-2020 Blood count hemoglobin José Miguel Sr Work Phone: Start: 02-21-2020 Transfusion of packe d red blood cells oJsé Miguel Sr Work Phone: Start: 02-20-2020 Blood typing serologic abo José Miguel Sr Work Phone: Start: 02-20-2020 Ct angiography head w/contrast/noncontrast José Miguel Sr Work Phone: Start: 02-20-2020 Ct head/brain w/o co ntrast material José Miguel Sr Work Phone: Start: 02-20-2020 Basic metabolic pane l calcium total José Miguel Sr Work Phone: Start: 02-20-2020 Blood count complete auto&auto difrntl wbc José Miguel Sr Work Phone: Start: 02-20-2020 RBC morphology findi ng Nom (Bld) José Miguel Sr Work Phone: Start: 06-18-2019 Antibody screen Comment on above: Performed By: #### C MP #### [facility] [address] [place] [address] Start: 06-16-2019 Gluc bld gluc mntr d ev cleared fda spec home use Sharri Abdlana Serrano Work Phone: Start: 06-16-2019 Gluc bld gluc mntr d ev cleared fda spec home use Sharri Abdlana Serrano Work Phone: Start: 06-16-2019 Blood count complete automated Jacob Gross Work Phone: Start: 06-16-2019 Assay of lipase Oneyda Gross Work Phone: Start: 06-16-2019 Comprehensive metabo lic panel Octavia Saez Work Phone: Start: 06-15-2019 Gluc bld gluc mntr d ev cleared fda spec home use Sharridwaine Serrano Work Phone: Start: 06-15-2019 Gluc bld gluc mntr d ev cleared fda spec home use Sharridwaine Serrano Work Phone: Start: 06-15-2019 Gluc bld gluc mntr d ev cleared fda spec home use Sharri Abdlana Serrano Work Phone: Start: 06-15-2019 Gluc bld gluc mntr d ev cleared fda spec home use Sharri Abdlana Serrano Work Phone: Start: 06-15-2019 Gluc bld gluc mntr d ev cleared fda spec home use Sharri Abdlana Serrano Work Phone: Start: 06-15-2019 Assay of lipase Oneyda Gross Work Phone: Start: 06-15-2019 Blood count complete automated Jacob Gross Work Phone: Start: 06-15-2019 Comprehensive metabo lic panel Octavia Zoie Nadja Work Phone: Start: 06-14-2019 Gluc bld gluc mntr d ev cleared fda spec home use Sharri Serrano Work Phone: Start: 06-14-2019 Gluc bld gluc mntr d ev cleared fda spec home use Sharri Serrano Work Phone: Start: 06-14-2019 ADD ON LAB TEST Octavia Zoie Nadja Work Phone: Start: 06-14-2019 Mri abdomen w/o cont rast material Octavia E Nadja Work Phone: Start: 06-14-2019 Assay of lipase Oneyda Gross Work Phone: Start: 06-14-2019 Basic metabolic pane l calcium total Jacob Gross Work Phone: Start: 06-14-2019 Blood count complete automated Jacob Gross Work Phone: Start: 06-14-2019 Carcinoembryonic ant igen cea Jacob Gross Work Phone: Start: 06-14-2019 Hepatic function panel Jacob Gross Work Phone: Start: 06-13-2019 Gluc bld gluc mntr d ev cleared fda spec home use Sharri Serrano Work Phone: Start: 06-13-2019 Gluc bld gluc mntr d ev cleared fda spec home use Sharri Serrano Work Phone: Start: 06-13-2019 Acute hepatitis panel L trudy Lino Nadja Work Phone: Start: 06-13-2019 Assay of lipase Octavia Saez Work Phone: Start: 06-13-2019 Lipid panel Octavia Parra hemm Work Phone: Start: 06-13-2019 ADD ON LAB TEST Octavia Saez Work Phone: Start: 06-13-2019 ADD ON LAB TEST Ivette Arriaga Work Phone: Start: 06-13-2019 Lipid 1996 panel - S wendie or Plasma Alba Tena DO Work Phone: Start: 06-13-2019 Assay of lipase Sharri Serrano Work Phone: Start: 06-13-2019 Bilirubin direct Sofya Serrano Work Phone: Start: 06-13-2019 Blood count complete auto&auto difrntl wbc Sharri Serrano Work Phone: Start: 06-13-2019 Prothrombin time Sofya Serrano Work Phone: Start: 06-13-2019 Thromboplastin time partial plasma/whole blood Sharri Serrano Work Phone: Start: 03-09-2019 Drug screen class list a Lavinia Rojo Work Phone: Start: 03-09-2019 Drug screen, qualitate/multi Lavinia Rojo Work Phone: Start: 03-09-2019 Gluc bld gluc mntr d ev cleared fda spec home use Scott Jauregui Work Phone: Start: 03-09-2019 Mri brain brain stem w/o w/contrast material Lavinia Rojo Work Phone: Start: 03-09-2019 Gluc bld gluc mntr d ev cleared fda spec home use Aga Ragsdale Work Phone: Start: 03-09-2019 Ct angiography head w/contrast/noncontrast Lavinia Rojo Work Phone: Start: 03-09-2019 ADD ON LAB TEST Lavinia london Work Phone: Start: 03-09-2019 BASIC METABOLIC PANE L W/ REFLEX TO MG FOR LOW K Scott Jauregui Work Phone: Start: 03-09-2019 Blood count complete auto&auto difrntl wbc Scott Jauregui Work Phone: Start: 03-09-2019 Lipid panel Scott Will Work Phone: Start: 03-09-2019 Gluc bld gluc mntr d ev cleared fda spec home use Aga Ragsdale Work Phone: Start: 03-08-2019 Cell count misc body fluids w/differential count Aga Ragsdale Work Phone: Start: 03-08-2019 Glucose body fluid o ther than blood Aga Ragsdale Work Phone: Start: 03-08-2019 Protein total xcpt refractometry oth src Aga Ragsdale Work Phone: Start: 03-08-2019 Ct head/brain w/o co ntrast material Aga Ragsdale Work Phone: Start: 03-08-2019 Radiologic exam ches t single view Aga Ragsdale Work Phone: Start: 03-08-2019 Basic metabolic pane l calcium total Aga Ragsdale Work Phone: Start: 03-08-2019 Blood count complete automated Aga Ragsdale Work Phone: Start: 03-08-2019 Spinal puncture lumb ar diagnostic Aga Ragsdale Work Phone: Start: 07-26-[address] ALBA TENA DO Comment on above: Left Start: 03-10-2014 Extraction of wisdom tooth DR ALBA TENA DO Start: 05-04-[address] ALBA TENA DO Comment on above: left Start: 07-16-[address] ALBA TENA DO Comment on above: right Start: 07-26-[address] ALBA TENA DO Cardiac catheterization DR Pastor TENA DO Cholecystectomy DR ALBA WHITE DO NEGATED: Highlighted rowStart: 10-10-2021 End: 10-10-2021 Documentation of current medications Elizabeth Yoder AT Plan of Treatment Date Care Activity Detail Author Start: 03-26-2023 Influenza vaccination Influenza Vaccine (Season Ended) [facility] Start: 11-25-2021 Hemoglobin A1c measurement A1C test (Diabetic or Prediabetic) [facility] Work Phone: Start: 10-10-2021 End: 10-10-2021 Ct lower extremity w/o contrast material CT right ankle without contrast [facility] Work Phone: Start: 03-26-2021 Influenza vaccination Flu vaccine (Season Ended) [facility] Work Phone: Start: 02-25-2021 Hemoglobin A1c measurement Diabetes: Hemoglobin A1C [facility] Start: 01-30-2021 COVID-19 Vaccine (3 - Booster for Moderna series) COVID-19 Vaccine (3 - Booster for Moderna series) [facility] Start: 06-13-2020 Lipid panel [facility] Start: 06-13-2020 Lipid screen Lipid screen [place] Start: 03-26-2020 Influenza vaccination Flu vaccine (#1) [place] Start: 02-03-2020 Lipid screen Lipid [place] Start: 04-26-2019 A1C test (Diabetic or Prediabetic) A1C test (Diabetic or Prediabetic) [place] Start: 04-26-2019 HbA1c (Bld) [Mass fraction] A1C test (Diabetic or Prediabetic) [place] Start: 03-26-2019 Influenza vaccination Flu vaccine (#1) [place] Start: 2016 Colon cancer screen colonoscopy Colon cancer screen colonoscopy [place] Start: 2016 Screening for malignant neoplasm of colon Colon cancer screen colonoscopy [place] Start: 2016 Shingles Vaccine (1 of 2) Shingles Vaccine (1 of 2) [place] Start: 2016 Zoster Vaccines (1 of 2) Zoster Vaccines (1 of 2) [facility] Start: 05-18-2015 Pneumococcal Vaccine: Pediatrics (0 to 5 Years) and At-Risk Patients (6 to 64 Years) (2 - PCV) Pneumococcal Vaccine: Pediatrics (0 to 5 Years) and At-Risk Patients (6 to 64 Years) (2 - PCV) [facility] Start: 1985 DTaP/Tdap/Td vaccine (1 - Tdap) DTaP/Tdap/Td vaccine (1 - Tdap) [place] Start: 1985 DTaP/Tdap/Td Vaccines (1 - Tdap) DTaP/Tdap/Td Vaccines (1 - Tdap) [facility] Start: 1985 Hepatitis B Vaccine (1 of 3 - Risk 3-dose series) Hepatitis B Vaccine (1 of 3 - Risk 3-dose series) [place] Start: 1985 Urine screening for protein Diabetes: Urine Protein Screening [facility] Start: 1984 Diabetic microalbuminuria test Diabetic microalbuminuria test [place] Start: 1982 COVID-19 Vaccine (1) COVID-19 Vaccine (1) [facility] Work Phone: Start: 1978 Depression Screening Depression Screening [facility] Start: 1977 DTaP/Tdap/Td vaccine (1 - Tdap) DTaP/Tdap/Td vaccine (1 - Tdap) [place] Start: 1976 [object Object] Diabetic foot exam [place] Start: 1976 Diabetic foot examination [facility] Start: 1976 Diabetic retinal exam Diabetic retinal exam [place] Start: 1976 Glaucoma screening Diabetes: Retinopathy Screening [facility] Start: 1976 Preventive dental service Diabetes: Dental Exam [facility] Start: 1972 Pneumococcal 0-64 years Vaccine (1 of 1 - PPSV23) Pneumococcal 0-64 years Vaccine (1 of 1 - PPSV23) [place] Start: 1967 MMR Vaccines (1 of 1 - Standard series) MMR Vaccines (1 of 1 - Standard series) [facility] Start: 1966 Hepatitis B Vaccines (1 of 3 - 3-dose series) Hepatitis B Vaccines (1 of 3 - 3-dose series) [facility] Start: 1966 HIV screening HIV Screening [facility] Start: 1966 Screening for malignant neoplasm of colon [facility] End: 06-14-2019 Add On Lab Test Add On Lab Test Lab Routine One Time for 1 Occurrences starting 06/14/2019 until 06/14/2019 [facility] Comment on above: One Time for 1 Occurrences starting 05/27 until 06/14/2019 Basic metabolic 2000 panel Basic Metabolic Panel Lab Routine Daily until discontinued starting 06/14/2019, 1 completed [facility] Comment on above: Daily until discontinued starting 2018, 1 completed End: 03-08-2019 Body Fluid Culture Body Fluid Culture Microbiology STAT One Time for 1 Occurrences starting 03/08/2019 until 03/08/2019 [facility] Comment on above: One Time for 1 Occurrences starting 02/23 until 03/08/2019 Body Fluid Culture Body Fluid Cu lture Microbiology STAT 03/08/2019 6:34 PM EDT [facility] End: 06-14-2019 Cancer Antigen 19-9 Cancer Antigen 19-9 Lab Routine Once for 1 Occurrences starting 06/14/2019 until 06/14/2019 [facility] Comment on above: Once for 1 Occurrences starting 06/14/20 19 until 06/14/2019 CBC CBC Lab Routine Daily until discontinued starting 06/14/2019, 3 completed [facility] Comment on above: Daily until discontinued starting 2018, 3 completed End: 11-27-2020 CBC panel - Blood by Automated count CBC Lab Routine Tomorrow AM for 3 Occurrences starting 11/25/2020 until 11/27/2020, 2 completed [facility] Work Phone: Comment on above: Tomorrow AM for 3 Occurrences starting 0 11/25/2020 until 11/27/2020, 2 completed End: 06-14-2019 CEA CEA Lab Routine Once for 1 Occurrences starting 06/14/2019 until 06/14/2019 [facility] Comment on above: Once for 1 Occurrences starting 06/14/20 19 until 06/14/2019 Comprehensive metabo lic 2000 panel Comprehensive Metabolic Panel Lab Routine Daily until discontinued starting 06/15/2019, 2 completed [facility] Comment on above: Daily until discontinued starting 2018, 2 completed End: 11-27-2020 Comprehensive Metabolic Panel w/ Reflex to MG Comprehensive Metabolic Panel w/ Reflex to MG Lab Routine Tomorrow AM for 3 Occurrences starting 11/25/2020 until 11/27/2020, 2 completed [facility] Work Phone: Comment on above: Tomorrow AM for 3 Occurrences starting 0 11/25/2020 until 11/27/2020, 2 completed End: 03-08-2019 HbA1c (Bld) [Mass fraction] Hemoglobin A1c Lab Routine One Time for 1 Occurrences starting 03/08/2019 until 03/08/2019 [facility] Comment on above: One Time for 1 Occurrences starting 02/23 until 03/08/2019 HbA1c (Bld) [Mass fraction] Hemoglobin A1c Lab Routine 03/09/2019 5:42 AM EDT [facility] Initiate Oxygen Ther apy Protocol [facility] Comment on above: Daily until discontinued starting 2018 Daily until disconti nued starting 06/13/2019 Lipase Lipase Lab Routi ne Daily until discontinued starting 06/14/2019, 3 completed [facility] Comment on above: Daily until discontinued starting 2018, 3 completed End: 11-27-2020 Lipase [Enzymatic activity/volume] in Serum or Plasma Lipase Lab Routine Daily for 3 Occurrences starting 11/25/2020 until 11/27/2020, 2 completed [facility] Work Phone: Comment on above: Daily for 3 Occurrences starting 021 until 11/27/2020, 2 completed End: 03-06-2019 MRI Abdomen W WO Contrast MRI Abdomen W WO Contrast Imaging Routine Pancreatic lesion 1 Occurrences starting 03/06/2019 until 03/06/2019 [facility] Comment on above: 1 Occurrences starting 03/06/2019 until 03/06/2019 MRI Abdomen W WO Contrast MRI Ab domen W WO Contrast Imaging Routine Pancreatic lesion 03/06/2019 1:25 PM EDT [place] Oxygen therapy [[facility] Data Set] Initiate Oxygen Therapy Protocol Respiratory Care Routine Daily until discontinued starting 11/24/2020 [facility] Work Phone: Comment on above: Daily until discontinued starting 2020 POCT glucose [place], [place] Comment on above: 4X Daily (AC & HS) until discontinued st arting 03/09/2019 As Needed until disc ontinued starting 03/08/2019 4X Daily (AC & HS) u ntil discontinued starting 06/13/2019 As Needed until disc ontinued starting 06/13/2019 4X Daily (AC & HS) u ntil discontinued starting 11/24/2020 As Needed until disc ontinued starting 11/24/2020 PREPARE RBC (CROSSMA TCH), 1 Units PREPARE RBC (CROSSMATCH), 1 Units Blood Bank STAT 02/20/2020 10:24 PM [place] Immunizations Immunization Date Immunization Notes Care Provider Fa cili 12-05-2020 SARS-CoV-2 (COVID-19 ) mRNA-[address] ALBA TENA DO [facility] Comment on above: Result Comment: 2020: TPV50 11-07-2020 SARS-CoV-2 (COVID-19 ) mRNA-[address] ALBA TENA DO [facility] Comment on above: Result Comment: 2020: TPV50 05-18-2014 influenza, seasonal, injectable DR ALBA TENA DO [facility] 05-18-2014 pneumococcal polysaccharide vaccine, [address] ALBA TENA DO [facility] 05-18-2014 influenza virus vacc ine, unspecified formulation Alba Tena DO Work Phone: [facility] Payers Date Payer Category Payer Unknown [id number] 2024 Self-pay 2024 Private Health Insurance [id number] 2021 Private Health Insurance [id number] 2015 Unknown [employer] [address] xxxxxxxxxxxx 2015-Present [phone] [address] [place] [address] xxxxxxxxxxxx [id number] 1965 Unknown [id number] 1965 Unknown [id number] 1966 Unknown [id number] 1965 Unknown [id number] 1965 Unknown [id number] 1965 Unknown [id number] Unknown [id number] Unknown [id number] Unknown [id number] Unknown [id number] Unknown [id number] Unknown [id number] Social History Date Type Detail Facility Start: 03-09-2019 End: 11-24-2020 Tobacco smoking status NHIS Light tobacco smoker [place] Start: 03-09-2019 End: 11-24-2020 Cigarettes smoked current (pack per day) - Reported [place] History of tobacco use Chews Tobacco [place] Start: 02-02-2019 End: 03-09-2019 Alcohol intake Yes [place] Start: 10-27-2017 Alcohol Comment more than a 6 pack daily; denies drinking liquor but drinks "very powerful beer" [place] Start: 1965 Sex Assigned At Not on file [place], [place] History of tobacco use Cigar Smoker [place] Start: 02-20-2020 End: 11-24-2020 Tobacco use and exposure Current user [place] History of tobacco use Snuff User [place] Start: 02-20-2020 Alcohol intake Ex-drinker (finding) [place] Start: 06-12-2019 Tobacco Comment 1 cigar/day [place], [place] Start: 06-12-2019 Alcohol Comment per week [place] Exposure to SARS-CoV-2 (event) Not sure [place] Start: 06-12-2019 End: 11-24-2020 Alcohol intake Current drinker of alcohol (finding) [place] Start: 03-13-2019 End: 08-22-2020 Never smoked tobacco (finding) [facility] Comment on above: daily smoke exposure Smokeless tobacc o user within last 30 days [facility] Comment on above: daily smoke exposure Sex Assigned At [facility] Start: 10-11-2021 End: 10-11-2021 Assertion Unknown if ever smoked [facility] Work Phone: History of tobacco use Cigarette Smoker [facility] [employer] Start: 10-01-2018 End: 08-17-2024 Tobacco smoking status Occasional tobacco smoker (finding) [facility] Comment on above: Couple of cigas "occ asionally" over the last few years Start: 05-16-2014 Sex Male (finding) [facility] Start: 08-22-2020 Tobacco Use Tobacco Use [facility] Start: 1965 Sex Assigned At Male [facility] NEGATED: Highlighted rowStart: 10-10-2021 End: 10-10-2021 Employment detail Employment detail [facility] Work Phone: Functional Status Date Assessment Result Facility 09-28-2022 Functional Status Activity Silvia tance Independent [facility] 09-28-2022 Functional Status Standard Safet y ID band on, Call device within reach, Bed in low position, Wheels locked, Upper/Half-Length side-rails up, Phone within reach, Bedside Cart Locked [facility] Mental Status Date Assessment Result Facility 09-28-2022 Mental Status Orientation Oriented x 4 [facility] 09-28-2022 Mental Status [facility] Clinical Notes 02-12-2020 to 02-20-2025 Peyman Martinez, DO - 11/26/2020 10:58 AM Jeancarlos Somers DTR - 11/26/2020 7:24 AM Katharine Callaway RN - 11/25/2020 3:47 PM Evette Campa MD - 11/25/2020 1:46 PM [facility]atory[facility]iology Note Date & Type Note Facility 02-20-2025 Radiology Diagnostic study note [facility] Imaging Services [address] [place] [address] ABD Limited w/ Elastography MR#: [id number] Acct: [id number] Name: AGA ADAN Rep #: [id number] : 1965 M 59 From: Roberto Cortes MD PCP: Dr. Alba Tena, DO Status: REG CLI Study:ABD Limited w/ Elastography Date of Exa m: 02/20/25 Exam# [id number] Ordering Dr: Lc Alvarez MD PROCEDURE: ABD LIMITED W/ ELASTOGRAPHY REASON FOR EXAM: FATTY LIVER COMPARISON: None. TECHNIQUE: Right upper quadrant abdominal ultrasound. [employer] ElastQ Imaging shear wave elastography for non-invasive assessment of liver tissue stiffness. [employer] EPIQ Elite. FINDINGS: LIVER: Size: Enlarged (hepatomegaly) Length: 21.3 cm Echotexture: Diffusely echogenic suggesting fatty infiltration Contour: Normal Lesions: None identified Elastography: EQI Med: 9.4 kPa EQI Med Bobby: 1.8 m/s IQR/Med: 17 %* GALLBLADDER: Surgically absent. COMMON BILE DUCT: Dilated measuring up to 9.5 mm . PANCREAS: Normal Visualized portions of the right kidney are unremarkable. No right upper quadrant ascites. US/ABD Limited w/ Elastography IMPRESSION: MODERATE TO SEVERE HEPATIC FIBROSIS Hepatomegaly. Fatty infiltration of the liver. Reference Values: SRU <1.37 m/s (5.7kPa): No to mild fibrosis 1.37 m/s - 2.2 m/s: Moderate to severe fibrosis >2.2 m/s (15kPa): Significant fibrosis / cirrhosis METAVIR Score F2 or higher: 1.34 m/s (5.7kPa) F3 or higher: 1.55 m/s (7.3kPa) F4: 1.80 m/s (10kPa) * If the IQR/Med is >30%, the variance in the measurements is a large and the accuracy of the measurement may be in question. Reading Location: [id number] CC: Dr. Alba Tena DO; Dr. 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 Pancreatitis is an inflammation of the pancreas. In many cases, it is caused when the duct that connects the pancreas and gallbladder is blocked by a gallstone. Heavy alcohol use is another major cause. Less common causes can include medicines, trauma, certain medical procedures, viruses, and toxins. Sometimes the cause of pancreatitis cannot be found. Genetic testing is sometimes done in those cases, especially if there is a family history of pancreas disease. Symptoms of pancreatitis include: Severe abdominal pain Nausea and vomiting Severe indigestion Racing heart Fever If the pancreatitis becomes chronic, diarrhea, chronic pain, weight loss, and poor nutrition can result. Home care Don't drink alcohol. Rest in bed or sit up in a chair until you feel better. Take medicines as prescribed. If you were given an antibiotic for infection, take it until it is gone, even if you feel better. Let your healthcare provider know if you vomit up your medicine. Tips for eating and drinking: If instructed, avoid eating or drinking until nausea and vomiting go away. Try sipping clear liquids to prevent dehydration. When you begin eating again, start with small amounts. Have small, more frequent meals rather than larger meals. Low fat meals are best. Follow-up care Follow up with your healthcare provider as advised. When to seek medical advice Call your healthcare provider right away for any of the following: Continued or worsening pain Repeated vomiting Dizziness, weakness Fever of 100.4 F (38 C) or higher, or as directed by your healthcare provider Severe muscle cramps Call 911 Call 911 if you have any of the following: Vomiting blood or large amounts of blood in stool Seizure Loss of consciousness [phone] [employer] [place] [address]. All rights reserved. This information is not intended as a substitute for professional medical care. Always follow your healthcare professional's instructions. Follow Up Care 09/28/2022 02:03:50 With:SARKIS ALVAREZ MD Address: [address] [address]- [phone] When:2-4 days [facility] 09-28-2022 Note Discharge Instructions Thank you for allowing [facility] to assist you with your healthcare needs. The following is important discharge information regarding your hospital visit. Diagnosis from Today's Visit Abdominal pain What to Do Next Instructions from Your Care Team No qualifying data available. Post Acute Orders No qualifying data available. You Need to Schedule the Following Appointments Follow Up with SARKIS ALVAREZ MD When Within 2-4 days Where: [address] [address]- [phone] Allergies NKA Medications Please ask your primary doctor or pharmacist before taking any other medication not listed, including over the counter drugs, herbal medications, vitamins and or supplements as they may interact with your home medications. What How Much When Why Instructions Last Dose New acetaminophen-oxyCODONE (acetaminophen-oxyCODONE 325 mg-5 mg oral tablet) 1 tab(s) by mouth Every 6 hours as needed for as needed for pain Abdominal pain Duration: 3 Days Printed Prescription New ondansetron (Zofran 8 mg oral tablet) 1 tab(s) by mouth Three (3) times a day Duration: 5 Days Printed Prescription Please take this list to your next doctor s visit. Bring all medications you take, including over the counter medications, herbals and other supplements with you to your doctor s visit. Patients and families are reminded to discard old lists and to update any records with all medication providers or retail pharmacies. Education Materials Pancreatitis The pancreas is an organ in the abdomen that secretes digestive juices into the stomach. Pancreatitis is an inflammation of the pancreas. In many cases, it is caused when the duct that connects the pancreas and gallbladder is blocked by a gallstone. Heavy alcohol use is another major cause. Less common causes can include medicines, trauma, certain medical procedures, viruses, and toxins. Sometimes the cause of pancreatitis cannot be found. Genetic testing is sometimes done in those cases, especially if there is a family history of pancreas disease. Symptoms of pancreatitis include: Severe abdominal pain Nausea and vomiting Severe indigestion Racing heart Fever If the pancreatitis becomes chronic, diarrhea, chronic pain, weight loss, and poor nutrition can result. Home care Don't drink alcohol. Rest in bed or sit up in a chair until you feel better. Take medicines as prescribed. If you were given an antibiotic for infection, take it until it is gone, even if you feel better. Let your healthcare provider know if you vomit up your medicine. Tips for eating and drinking: If instructed, avoid eating or drinking until nausea and vomiting go away. Try sipping clear liquids to prevent dehydration. When you begin eating again, start with small amounts. Have small, more frequent meals rather than larger meals. Low fat meals are best. Follow-up care Follow up with your healthcare provider as advised. When to seek medical advice Call your healthcare provider right away for any of the following: Continued or worsening pain Repeated vomiting Dizziness, weakness Fever of 100.4 F (38 C) or higher, or as directed by your healthcare provider Severe muscle cramps Call 911 Call 911 if you have any of the following: Vomiting blood or large amounts of blood in stool Seizure Loss of consciousness [phone] [employer]. [address] [place] [address]. All rights reserved. This information is not intended as a substitute for professional medical care. Always follow your healthcare professional's instructions. Additional Information VACCINATE! IT SAVES LIVES! Members of the community who have not yet received the COVID-19 vaccine and would like to receive it can visit one of [facility] vaccine clinics. There are many vaccine clinic locations within the [facility]. For locations and available times, please visit [email or web address] [email or web address] It is important to note that some COVID mobile vaccine clinics are held outdoors and may be canceled in rainy or stormy conditions. To learn more about pediatric vaccinations (ages 5-11), we invite you to visit the [facility] webpage. [email or web address] To learn more about the COVID-19 vaccine, we invite you to visit the CDC website for a list of frequently asked questions. https://www.cdc.gov/coronavirus/2 019-ncov/vaccines/faq.html [facility] Patient Portal Access Instructions: Stay connected with your healthcare team and access your personal medical information anytime with the [facility] Patient Portal. If you would like a full copy of your medical records please contact the [facility] Medical Records Department Wednesday through Wednesday between 8a.m. and 4:30p.m. Please follow the directions below to access the portal: 1.Access the email account you provided upon registration to the hospital.2.Look for an invitation email from [facility].3.Open the email and access the invitation link: Accept Invitation to [facility].Fill in the required dykes to create your account. Sign into [email or web address] [employer] with your username and password that you created in the above steps to stay up to date. You can then view a summary of results, a summary of your visits, and the ability to download your summaries to your computer or send the information securely to a physician. Remember that your healthcare information is confidential, so carefully consider who you will allow to register on the [facility] Patient Portal for access to your information. You can also access the [facility] Patient Portal on the [employer] wenceslao. Simply click on "Health Records" under "Health Data" and then click on the [employer] logo. HOW TO SAFELY DISPOSE OF PRESCRIPTION MEDICATIONS Please use one of the following methods to safely dispose of your unused medications. 1.Use a drug disposal kit: the drug disposal pouch allows you to safely discard your old and unused drugs. Ask your nurse to give you one when you are discharged.2.Visit a local take-back location: Many local pharmacies and police departments have programs that collect old and unwanted prescription drugs. Call your local pharmacy or go to http://[employer].Source4Style/0P2Sa1d to find one close to you.3.Make use of household items: Use cat litter or old coffee grounds to dispose medications if other options are not available. Mix your drugs with these household products, seal them in an airtight container and throw it into the garbage. Call [facility]: [phone] to be sure your drugs can be disposed of in this way. Some medicines may require a different approach.4.Never flush your medications down the toilet. IF YOU HAVE BEEN PRESCRIBED AN OPIOIDS FOR PAIN If you have been prescribed an opioid (such as hydrocodone, oxycodone or morphine), it is critical to understand the possible side effects and risks of opioid pain medications. Even when taken as directed, opioids can have several side effects including: Tolerance, meaning you might need to take more of a medication for the same pain relief. Nausea, vomiting and/or constipation. Sleepiness, dizziness, dry mouth, confusion, depression or itching. Physical dependence, meaning you have withdrawal symptoms when a medication is stopped ? this can develop within a few days. KNOW YOUR RESPONSIBILITIES It is important to know exactly how much and how often to take the opioid pain medications you are prescribed. Never take opioids in higher amounts or more often than prescribed. Do not combine opioids with alcohol or other drugs that cause drowsiness, such as benzodiazepines, also known as benzos, including diazepam and alprazolam, muscle relaxants or sleep aids. Never sell or share prescription opioids. This is illegal. Store opioids in a secure place and out of reach of others (including children, family, friends and visitors). The last page(s) of this document has been signed and retained as a CHART COPY Signatures Patient Education Materials Pancreatitis Medication Leaflets My discharge plan and instructions have been reviewed and explained to me and I,AGA ADAN understand my current condition and have read and understand these discharge instructions. I have received a written copy of the plan/instructions. If I have questions, I am aware that I should contact my doctor. 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 Multiplanar reformatted images are provided for review. Automated exposure control, iterative reconstruction, and/or weight based adjustment of the mA/kV was utilized to reduce the radiation dose to as low as reasonably achievable. COMPARISON: None. HISTORY: ORDERING SYSTEM PROVIDED HISTORY: Reason for Exam: pain FINDINGS: Lung bases demonstrate no acute findings. Liver demonstrates no acute findings. The spleen is mildly prominent measuring up to 15 cm in AP diameter. Kidneys enhance symmetrically. No evidence of obstructive uropathy. Gallbladder surgically absent. There is mild haziness adjacent to the pancreatic head suggestive of acute pancreatitis, no focal fluid collection or abscess formation is identified. Minimal dilatation of the main pancreatic duct is noted, which measures up to 3 mm, no obstructing mass or lesion is identified within the pancreatic head. No evidence of adjacent venous thrombosis. No intra-abdominal free air free fluid. Small bowel colon are normal in caliber, no evidence of an acute obstructive or inflammatory process. Urinary bladder is normally distended, mild circumferential bladder wall thickening is noted, no adjacent inflammatory changes identified. Visualized osseous structures are intact. No suspicious osseous lesions. Arthroplasty hardware is noted within the left hip. Remote fracture of the inferior pubic ramus is suspected on the left. Laminectomy procedures been performed at L5 and S1. IMPRESSION: Mild inflammatory change adjacent to the pancreatic head, consistent with acute pancreatitis. No evidence of adjacent focal fluid collection or abscess formation. Correlation with amylase and lipase values is suggested. Mild dilatation of the main pancreatic duct is present without evidence of an obstructing mass or lesion, this could be postinflammatory in nature. ERCP or MRCP could be useful in further evaluation following resolution of the acute process. Mild splenomegaly of indeterminate significance. Mild circumferential wall thickening of the urinary bladder is a nonspecific finding, no adjacent inflammatory changes present, this could be secondary to chronic outlet obstruction or other etiologies such is neurogenic bladder. Correlation with urinalysis could be useful if clinically warranted. Interpreted by: Ravinder Stiles MD Preliminary Report By: Ravinder Stiles MD Electronically signed By Ravinder Stiles MD Dictated Date: 09/28/2022 3:56:08 AM Prelim Date: 09/28/2022 4:23:05 AM Sign Date: 09/28/2022 4:23:05 AM Ordering Provider: DENICE GUILLEN [facility] 09-28-2022 Note ORIGINAL EXAMINATION: CT OF THE ABDOMEN AND PELVIS WITH CONTRAST 09/28/2022 3:42 am TECHNIQUE: CT of the abdomen and pelvis was performed with the administration of intravenous contrast. Multiplanar reformatted images are provided for review. Automated exposure control, iterative reconstruction, and/or weight based adjustment of the mA/kV was utilized to reduce the radiation dose to as low as reasonably achievable. COMPARISON: None. HISTORY: ORDERING SYSTEM PROVIDED HISTORY: Reason for Exam: pain FINDINGS: Lung bases demonstrate no acute findings. Liver demonstrates no acute findings. The spleen is mildly prominent measuring up to 15 cm in AP diameter. Kidneys enhance symmetrically. No evidence of obstructive uropathy. Gallbladder surgically absent. There is mild haziness adjacent to the pancreatic head suggestive of acute pancreatitis, no focal fluid collection or abscess formation is identified. Minimal dilatation of the main pancreatic duct is noted, which measures up to 3 mm, no obstructing mass or lesion is identified within the pancreatic head. No evidence of adjacent venous thrombosis. No intra-abdominal free air free fluid. Small bowel colon are normal in caliber, no evidence of an acute obstructive or inflammatory process. Urinary bladder is normally distended, mild circumferential bladder wall thickening is noted, no adjacent inflammatory changes identified. Visualized osseous structures are intact. No suspicious osseous lesions. Arthroplasty hardware is noted within the left hip. Remote fracture of the inferior pubic ramus is suspected on the left. Laminectomy procedures been performed at L5 and S1. IMPRESSION: Mild inflammatory change adjacent to the pancreatic head, consistent with acute pancreatitis. No evidence of adjacent focal fluid collection or abscess formation. Correlation with amylase and lipase values is suggested. Mild dilatation of the main pancreatic duct is present without evidence of an obstructing mass or lesion, this could be postinflammatory in nature. ERCP or MRCP could be useful in further evaluation following resolution of the acute process. Mild splenomegaly of indeterminate significance. Mild circumferential wall thickening of the urinary bladder is a nonspecific finding, no adjacent inflammatory changes present, this could be secondary to chronic outlet obstruction or other etiologies such is neurogenic bladder. Correlation with urinalysis could be useful if clinically warranted. Interpreted by: Ravinder tSiles MD Preliminary Report By: Ravinder Stiles MD Electronically signed By Ravinder Stiles MD Dictated Date: 09/28/2022 3:56:08 AM Prelim Date: 09/28/2022 4:23:05 AM Sign Date: 09/28/2022 4:23:05 AM Ordering Provider: DENICE GUILLEN [facility] 02-27-2022 Note ORIGINAL EXAMINATION: MRI OF THE ABDOMEN LIMITED without and with CONTRAST, 02/27/2022 12:00 pm TECHNIQUE: Multiplanar multisequence MRI of the abdomen limited was performed without and with the administration of intravenous contrast. Pancreas protocol. COMPARISON: CT scan October 24, 2018 HISTORY: ORDERING SYSTEM PROVIDED HISTORY: Reason for Exam: pancreatitis FINDINGS: A small left lobe liver cyst is incidentally seen. No intrahepatic biliary dilatation is evident. The common bile duct is normal, 6 mm in diameter. No defect is evident within it. The pancreatic duct at the head of the pancreas is minimally prominent, 3-4 mm in diameter. It tapers in normal fashion toward the pancreatic tail. No focal pancreatic mass lesion is identified on the noncontrast study. Post IV contrast scans show normal pancreatic enhancement, again with no focal mass lesion demonstrated. No peripancreatic infiltrative change or fluid is visible on this exam. Incidental tiny scattered renal cysts are noted. IMPRESSION: 1. No definite evidence for active pancreatitis on this exam. 2. Minimal prominence of the pancreatic duct at the head of the pancreas without evidence for mass lesion. Perhaps this is related to remote inflammation. Interpreted by: Della Garza MD Preliminary Report By: Della Garza MD Electronically signed By Della Garza MD Dictated Date: 02/27/2022 12:53:10 PM Prelim Date: 02/27/2022 12:59:51 PM Sign Date: 02/27/2022 12:59:51 PM Ordering Provider: SARKIS ALVAREZ [facility] 02-27-2022 Note ORIGINAL EXAMINATION: MRI OF THE ABDOMEN LIMITED without and with CONTRAST, 02/27/2022 12:00 pm TECHNIQUE: Multiplanar multisequence MRI of the abdomen limited was performed without and with the administration of intravenous contrast. Pancreas protocol. COMPARISON: CT scan October 24, 2018 HISTORY: ORDERING SYSTEM PROVIDED HISTORY: Reason for Exam: pancreatitis FINDINGS: A small left lobe liver cyst is incidentally seen. No intrahepatic biliary dilatation is evident. The common bile duct is normal, 6 mm in diameter. No defect is evident within it. The pancreatic duct at the head of the pancreas is minimally prominent, 3-4 mm in diameter. It tapers in normal fashion toward the pancreatic tail. No focal pancreatic mass lesion is identified on the noncontrast study. Post IV contrast scans show normal pancreatic enhancement, again with no focal mass lesion demonstrated. No peripancreatic infiltrative change or fluid is visible on this exam. Incidental tiny scattered renal cysts are noted. IMPRESSION: 1. No definite evidence for active pancreatitis on this exam. 2. Minimal prominence of the pancreatic duct at the head of the pancreas without evidence for mass lesion. Perhaps this is related to remote inflammation. Interpreted by: Della Garza MD Preliminary Report By: Della Garza MD Electronically signed By Della Garza MD Dictated Date: 02/27/2022 12:53:10 PM Prelim Date: 02/27/2022 12:59:51 PM Sign Date: 02/27/2022 12:59:51 PM Ordering Provider: SARKIS ALVAREZ [facility] 01-28-2022 Note ORIGINAL EXAMINATION: BONE DENSITOMETRY01/28/2022 11:14 am TECHNIQUE: Dual energy bone densitometry right hip and right forearm. COMPARISON: None HISTORY: Reason for Exam: screening Osteoporosis screening. FINDINGS: Total bone mineral density of right 1/3 radius is 0.770 grams per square centimeters, and T-score being -1.0, indicating that this patient has normal bone mineral density. Bone mineral density of the right femoral neck is 0.795 grams per square centimeters, and T-score being -1.0, indicating that this patient has normal bone mineral density. Total bone mineral density of the right hip is 0.977 grams per square centimeters, and T-score being -0.4, indicating that this patient has normal bone mineral density. IMPRESSION: Normal bone mineral density. I have personally reviewed the images of this examination and agree with the resident's findings and interpretation. Interpreted by: Ya Mills MD Preliminary Report By: James Schmitt Electronically signed By Ya Mills MD Dictated Date: 01/28/2022 11:30:39 AM Prelim Date: 01/28/2022 11:44:57 AM Sign Date: 01/28/2022 11:44:57 AM Ordering Provider: ALBA TENA [facility] 01-28-2022 Note ORIGINAL EXAMINATION: BONE DENSITOMETRY01/28/2022 11:14 am TECHNIQUE: Dual energy bone densitometry right hip and right forearm. COMPARISON: None HISTORY: Reason for Exam: screening Osteoporosis screening. FINDINGS: Total bone mineral density of right 1/3 radius is 0.770 grams per square centimeters, and T-score being -1.0, indicating that this patient has normal bone mineral density. Bone mineral density of the right femoral neck is 0.795 grams per square centimeters, and T-score being -1.0, indicating that this patient has normal bone mineral density. Total bone mineral density of the right hip is 0.977 grams per square centimeters, and T-score being -0.4, indicating that this patient has normal bone mineral density. IMPRESSION: Normal bone mineral density. I have personally reviewed the images of this examination and agree with the resident's findings and interpretation. Interpreted by: Ya Mills MD Preliminary Report By: James Schmitt Electronically signed By Ya Mills MD Dictated Date: 01/28/2022 11:30:39 AM Prelim Date: 01/28/2022 11:44:57 AM Sign Date: 01/28/2022 11:44:57 AM Ordering Provider: ALBA TENA [facility] 11-26-2020 History of Present illness Narrative GASTROENTEROLOGY PROGRESS NOTE Patient: Aga Adan : 1965 Primary Care Physician: Alba Tena DO History: Abd pain improving. Tolerating liquid diet. No complaints Physical Exam: Gen: AAOx3 in NAD BP (!) 151/92 Pulse 67 Temp 98 F (36.7 C) (Temporal) Resp 16 Ht 5' 7" (1.702 m) Wt 200 lb (90.7 kg) SpO2 98% BMI 31.32 kg/m CVS: RRR, s1, s2, no mrg Abd: Soft, NT/ND, +BS, No guarding/rebound, Laboratory Data: CBC: Recent Labs 11/24/20 0356 11/25/20 0511/26/20219 WBC 6.0 7.5 5.2 HGB 13.2 13.1 12.9* HCT 37.4* 37.0* 36.3* PLT 206 211 203 CMP: Recent Labs 11/25/20 0511/26/20219 NA 131* 136 K 3.7 3.8 CL 98 103 CO2 23 22 BUN 8 8 CREATININE 0.55 0.62 GLUCOSE 141* 125* CALCIUM 9.8 10.0 HEPATIC: Recent Labs 11/25/20 0517 11/26/20219 AST 46 54* ALT 39 45 BILITOT 1.2 1.2 ALKPHOS 77 84 LIPASE/AMYLASE: Recent Labs 11/25/20 0511/26/20219 LIPASE 5,578* 973* Ct Abdomen Pelvis W Contrast Result Date: 11/25/2020 Patient Name: AGA ADAN Computed Tomography ACCESSION EXAM DATE/TIME PROCEDURE ORDERING PROVIDER [id number] 11/25/2020 20:[address] Abdomen/Pelvis w/ IV Flora MARTINEZ JEFFREY D Contrast (IV Onl CPT code 26653 Q9967 Reason For Exam (CT Abdomen/Pelvis w/ IV Contrast (IV Onl) Acute pancreatitis Hx of pancreatic cyst Report CT ABDOMEN AND PELVIS CLINICAL INDICATION: Acute pancreatitis Hx of pancreatic cyst TECHNIQUE: CT scan of the abdomen and pelvis with IV contrast. Multiplanar reformations. COMPARISON: 02/01/2019 FINDINGS: Lung bases are clear. No free intraperitoneal gas seen. Liver shows no significant abnormality. Normal-appearing biliary tree status-post cholecystectomy. Spleen shows no significant abnormality. Adrenal glands show no significant abnormality. Kidneys show no significant abnormality. Minor stranding around the pancreatic head compatible with acute pancreatitis. Previously seen cystic lesion in the pancreatic head/uncinate process is only questionably visualized, 7 x 5 mm, and much smaller than on the prior study. Mildly dilated pancreatic duct. Nonaneurysmal abdominal aorta. No bowel obstruction. Beam hardening artifact from left hip hardware obscures underlying soft tissues. Appendix appears normal. IMPRESSION: 1. Acute pancreatitis. Previously seen cystic lesion in the uncinate process much smaller than on the previous study. Mildly dilated pancreatic duct, similar to the previous study. Assessment: 1. Acute Pancreatitis - mild in severity. Likely ETOH related, component of increased TGs. Clinically improving 2. Hx of complex pancreatic cyst - s/p endoscopic cyst gastrostomy. Pt states was told it was benign. Cyst much smaller on CT. 3. ETOH use disorder Plan: 1. Soft diet as tolerated 2. ETOH cessation stressed with patient 3. Will follow peripherally Nutrition rescreen complete. Pt assigned a level one for nutrition care. Patient was witnessed by Housekeeping getting out of bed without nursing and falling. Per housekeeping, Patient got his foot tangled up in the blankets. Patient had been instructed multiple times to call nursing for assistance, do not get oob without nursing prior to this. Bed alarm was in place at the time of fall. Patient did not have his surgical boot on at the time of fall. Patient continues to get out of bed without calling nursing. Patient does not put boot on prior to ambulation without nursing reinforcement. Patient is becoming pleasantly disoriented. Pt thought that he was in a room connected to his home. Patient continues to get up and out of bed within moments of getting in bed. Patient was disoriented as to why he was here. Placing avasyst in room, currently nursing is charting at bedside. Patient is clearing mentally at this time but is still forgetful. Oriented to person, birthdate, knows he is in hospital (answered [facility]). Forgets why he was admitted. Patient fell down and hit his head after slipping onto something, denies any lightheadedness and LOC, has scalp swelling, ordered CT head, also having right ankle swelling, ordered right ankle xray, Advised to call for help if needed. Images from the original note were not included. Throughout the encounter I wore and N95 mask and face shield Hospitalist Progress Note 11/25/2020 11:38 AM [phone]: Please page nj @ [phone] for patient care issues. [phone]: Please page [facility] night Hospitalist for any issues. Subjective: Admit Date: 11/24/2020 PCP: Alba Tena, No overnight issues. Denies chest pain, cough, sob, abdominal pain, nausea, vomiting, diarrhea, constipation, fevers, or chills. Pain controlled, anxious to go home. DIET CLEAR LIQUID; Patient Vitals for the past 96 hrs (Last 3 readings): Weight 11/24/20 0616 200 lb (90.7 kg) 11/24/20 0339 200 lb (90.7 kg) Medications: lactated ringers 150 mL/hr at 11/24/20 1814 dextrose sodium chloride fenofibrate 160 mg Oral Daily aspirin 81 mg Oral Daily atenolol 50 mg Oral Daily buPROPion 150 mg Oral Daily ferrous sulfate 325 mg Oral BID folic acid 1 mg Oral Daily metFORMIN 1,000 mg Oral BID WC pantoprazole 40 mg Oral QAM AC QUEtiapine 100 mg Oral Nightly thiamine 100 mg Oral Daily vitamin B-12 1,000 mcg Oral Daily enoxaparin 40 mg Subcutaneous Daily insulin lispro 0-6 Units Subcutaneous TID WC insulin lispro 0-3 Units Subcutaneous Nightly sodium chloride flush 5-40 mL Intravenous 2 times per day LABS: CBC: Recent Labs 11/24/20 0356 11/25/20 05 WBC 6.0 7.5 RBC 4.00* 3.99* HGB 13.2 13.1 HCT 37.4* 37.0* MCV 93.5 92.7 RDW 12.7 12.5 PLT 206 211 BMP: Recent Labs 11/24/20 0356 11/25/20516 NA 134* 131* K 3.7 3.7 CL 97* 98 CO2 28 23 BUN 11 8 CREATININE 0.68 0.55 GLUCOSE 146* 141* CALCIUM 10.0 9.8 ANIONGAP 8 11 LIVER PROFILE: Recent Labs 11/24/20 0356 11/25/20516 AST 45 46 ALT 40 39 BILITOT 1.0 1.2 ALKPHOS 93 77 LABALBU 4.6 4.5 PROT 7.9 7.9 PT/INR: No results for input(s): PROTIME, INR in the last 72 hours. CARDIAC ENZYMES: No results for input(s): TROPONINI in the last 72 hours. Procalcitonin: No results found for: PROCAL Objective: Vitals: BP (!) 159/82 Pulse 59 Temp 97.3 F (36.3 C) (Temporal) Resp 18 Ht 5' 7" (1.702 m) Wt 200 lb (90.7 kg) SpO2 99% BMI 31.32 kg/m Pulse Ox: SpO2 Av.7 % Min: 98 % Max: 99 % Supplemental O2: General appearance: No apparent distress, appears stated age and cooperative with exam HEENT: Normal cephalic, atraumatic without obvious deformity. Pupils equal, round, and reactive to light. Extra ocular muscles intact. Conjunctivae/corneas clear. Neck: Supple, with full range of motion. No jugular venous distention. Trachea midline. No lymphadenopathy. Respiratory: Normal respiratory effort. Clear to auscultation, bilaterally without Rales/Wheezes/Rhonchi. Cardiovascular: Regular rate and rhythm with normal S1/S2 without murmurs, rubs or gallops. Abdomen: Soft, Mild RUQ tenderness Musculoskeletal: Trace edema bilaterally. Full range of motion without deformity. Skin: Skin color, texture, turgor normal. No rashes or lesions. Neurologic: Neurovascularly intact without any focal sensory/motor deficits. Cranial nerves: II-XII intact, grossly non-focal. 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 Chronic ethanol use, patient does not drink daily but had a binge drink more than 12 beers for [employer] draft Mild hyponatremia, Na 131 Recent ERCP at [facility] for pancreatic cyst Obesity Hypertension Type 2 diabetes mellitus with hyperglycemia Hyperlipidemia Major depression CAD Past Medical History: Diagnosis Date Abnormal nuclear stress test Acid reflux Anxiety CAD (coronary artery disease) medically treated Calculus of gallbladder with chronic cholecystitis without obstruction SCHEDULED FOR THE SURGERY TODAY Depression ETOH abuse Hyperlipidemia Hypertension Insomnia ME (myocardial infarction) (HCC) 2007 Opioid dependence ([facility]) Pancreatitis Pancreatitis Sleep apnea Plan : GI consult, FLD, pain control, CIWA, monitor for ethanol withdrawals IVF Start Fenofibrate All test and lab results reviewed Consult notes reviewed Am labs, replace lytes prn PT/OT Advance care planning has been discussed, total time spent is greater than 30 mins -DVT prophylaxis: [x] Lovenox [] Heparin [] SCDs [x] Encourage ambulation [] Already on Anticoagulation Advance Directive: Full Code Discharge planning: TBD EVETTE PERRY MD, MD Division of Hospitalist Medicine Inpatient Medical Services This report was created using the [employer] Speaking voice-activated system. Despite prompt dictation and careful editorial review, there may be subtle contextual errors in this report, due to misrecognition of the spoken word. Patient was very anxious this morning, pacing in the hallway, dressed and has all belonging packed up and is requesting to see physician. Patient was unrelenting about wanting to go home. Patient complains of tremors, being hot, dizzy, and nausea. Patient states that he needs to go home because he is exhausted and has not had any sleep. Patient is cooperative about returning to the bed. Patient is sleeping s/p ativan at this time. Pt came to the nurses station stating that he would like to see his physician and get discharged, he stated that he has been waiting for a while. The patient was dressed and ready to go. This nurse explained to the patient that the time is 0219 and the physician will be in to see him in the am. The patient stated that he did not realize that it was night time and he will go lay back down and wait for morning. Patient Evaluation Form The patient is currently receiving BID Flovent Points 0 1 2 3 4 Points Totals Pulmonary Status (-/+) History Smoking history < 20 pack years Smoking history > 20 pack years Pulmonary Disorder (acute or chronic) Severe or Chronic with Exacerbation 1 Surgical Status No Surgery Trach PEG General Surgery Lower Abdominal Thoracic or Upper Abdominal Thoracic with Pulmonary Disorder 0 Chest X-ray Clear None Ordered Chronic Changes CXR results Pending Infiltrates, atelectasis, pleural effusion, or edema Infiltrates in more than one lobe Infiltrate + Atelectasis, &/or pleural effusion 0 Respiratory Pattern Regular, RR = 12-20 Increased, RR = 21-25 HALL, irregular, or RR = 26-30 Decreased FEV1 or RR = 31-35 Severe SOB, used of of accessory muscles, or RR = > 35 0 Mental Status Alert, oriented, cooperative Confused, but follows commands Lethargic or un-able to follow commands Obtunded Comatose 0 Breath Sounds Clear to auscultation Decreased unilaterally or in bases only Decreased bilaterally Crackles or intermittent wheezes Wheezes 1 Cough Strong, spontaneous, & nonproductive Strong, spontaneous, & productive Weak, nonproductive Weak, productive or with wheezes No spontaneous cough or may require suctioning 0 Level of Activity Ambulatory Ambulatory with Assist Non-ambulatroy Paraplegic Quadriplegic 1 Triage 1 > 20 pts Triage 2 16-20 pts Triage 3 11- 15 pts Triage 4 6 - 10 pts Triage 5 0 - 5 pts TOTAL POINTS = 3 Triage Score = 5 PEF: FVC: FEV1: FVE1/FVC: Patient instructed and returned demonstration on use of MDI (with spacer, as appropriate) No Changing Therapy to PRN as patient doesn't want the MDI Patient is seen and examined and admitted by the 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, recurrent Chronic ethanol use, patient does not drink daily but had a binge drink, more than 12 beers for [employer] draft Mild hyponatremia Recent ERCP at [facility] for pancreatic cyst Obesity Hypertension Type 2 diabetes mellitus with hyperglycemia Hyperlipidemia Major depression CAD CIWA protocol, IV fluids, pain control, further orders as case progresses, follow lipase documented in this encounter [facility] Work Phone: 11-26-2020 Note Hospitalist Discharg e Summary Aga Adan : 1965 Admit date: 11/24/2020 Discharge date: 11/26/2020 Admitting Physician: Della Lopez MD Primary Care Physician: Alba Tena DO Visit Status: Admission Code Status: Full Code Discharge Diagnoses: 1. Acute ETOH-induced Pancreatitis 2. HTN 3. HLD 4. CAD 5. COPD 6. ETOH use 7. Hx of Complex Pancreatic Cyst 8. Depression 9. ANYA 10. GERD 11. Obesity 12. Recent Right Ankle Fusion Additional diagnosis evaluated and treated during the admission: Patient Active Problem List Diagnosis Code ? Hyperlipidemia E78.5 ? Hypertension I10 ? Abnormal nuclear stress test R94.39 ? ME (myocardial infarction) (HCC) I21.9 ? Calculus of gallbladder with chronic cholecystitis without obstruction K80.10 ? Acute pancreatitis K85.90 ? Rectal bleeding K62.5 ? Elevated liver function tests R79.89 ? Alcohol-induced acute pancreatitis K85.20 ? Type 2 diabetes mellitus (HCC) E11.9 ? Acute pancreatitis due to calculus of common bile duct K85.10 ? Iron deficiency anemia due to chronic blood loss D50.0 ? Malabsorption of iron K90.9 ? Headache R51.9 ? Occipital headache R51.9 ? Pancreatic lesion K86.9 ? Occipital neuralgia of right side M54.81 ? Pancreatitis, recurrent K85.90 ? Transaminitis R74.01 ? Acute recurrent pancreatitis K85.90 Procedures: Abdominal US, CT Head, CT Ab/Pelvis, Right Foot/ Ankle X-ray Hospital Course: Admitted for nausea and abdominal pain for 48 hours. Pt with hx of pancreatitis, with recent ERCP at [facility] for pancreatic duct cyst (pt stated). Endorses drinking a 6-pack of beer weekly, but had 6 beers in one night during the [employer] draft. Since that night, has had nausea and 1-2 episodes of NBNB emesis. Able to tolerate water but has had pain with anything else PO. In the ED, labs remarkable for mild hyponatremia and significantly elevated lipase (8,336). Pt was admitted with GI consulted. Cyst form previous pancreatitis had improved. He was monitored with CIWA. Had intermittent confusion but was re-directed. Had fall during admission due to being caught in his sheets while using his crutches. Scans and imaging were negative. Medically cleared for discharge in improved and stable condition on 11/26/2020. See medication adjustments below in med rec. Consults: IP CONSULT TO SOCIAL WORK IP CONSULT TO GI Discharge Instructions: Diet: DIET LOW FIBER; Activity: as tolerated Recommended Outpatient Tests: Disposition: Patient discharged in stable condition to Home. Vitals: BP (!) 151/92 Pulse 67 Temp 98 ?F (36.7 ?C) (Temporal) Resp 16 Ht 5' 7" (1.702 m) Wt 200 lb (90.7 kg) SpO2 98% BMI 31.32 kg/m? Pulse Ox: SpO2 Av.5 % Min: 97 % Max: 98 % Supplemental O2: General appearance: No apparent distress, appears stated age and cooperative with exam; Obese male HEENT: Normal cephalic, atraumatic without obvious deformity. Pupils equal, round, and reactive to light. Extra ocular muscles intact. Conjunctivae/corneas clear. Neck: Supple, with full range of motion. No jugular venous distention. Trachea midline. No lymphadenopathy. Respiratory: Normal respiratory effort. Clear to auscultation, bilaterally without Rales/Wheezes/Rhonchi. Cardiovascular: Regular rate and rhythm with normal S1/S2 without murmurs, rubs or gallops. Abdomen: Soft, non-tender, non-distended with normal bowel sounds. No rebound or guarding. Musculoskeletal: No clubbing, cyanosis or edema bilaterally. Full range of motion without deformity. Skin: Recent right ankle fusion; Skin color, texture, turgor normal. No rashes or lesions. Neurologic: Neurovascularly intact without any focal sensory/motor deficits. Cranial nerves: II-XII intact, grossly non-focal. Discharge Medications: Aga Adan Home Medication Instructions LULY:[id number] Printed on:11/26/20 2735 Medication Information aspirin 81 MG chewable tablet Take 1 tablet by mouth daily atenolol (TENORMIN) 25 MG tablet Take 50 mg by mouth daily beclomethasone (QVAR) 40 MCG/ACT inhaler Inhale 2 puffs into the lungs 2 times daily buPROPion (WELLBUTRIN SR) 150 MG extended release tablet Take 150 mg by mouth daily calcium carbonate 600 MG TABS tablet Take 1 tablet by mouth daily chlorhexidine (PERIDEX) 0.12 % solution Take 15 mLs by mouth 2 times daily Cholecalciferol (VITAMIN D3) 22473 units CAPS Take 1 capsule by mouth once a week ferrous sulfate (IRON 325) 325 (65 Fe) MG tablet Take 1 tablet by mouth 2 times daily fluticasone (FLONASE) 50 MCG/ACT nasal spray 1 spray by Each Nostril route daily folic acid (FOLVITE) 1 MG tablet Take 1 tablet by mouth daily gemfibrozil (LOPID) 600 MG tablet Take 1 tablet by mouth 2 times daily (before meals) loratadine (CLARITIN) 10 MG tablet Take 10 mg by mouth daily metFORMIN (GLUCOPHAGE) 500 MG tablet Take 1 tablet by mouth 2 times daily (with meals) Once (more content not included)... [facility] 11-25-2020 Hospital Discharge instructions Sophy Parnell RN - 11/25/2020 8:29 AM EDT [facility] has resources to assist with Substance Use Disorder. Through [place], the First Step program assists with connecting you to care coordination, recovery coaches, medical treatment, and service coordination. Within 1 week (typically), you can be connected with resources to assist with substance use. An addictions counselor is in the emergency room is available from 11:00am-11:00pm every day. They can also be reached by phone with additional questions at [phone]. The [facility] Addiction Medicine Intensive Outpatient Program is a group therapy treatment program for those with alcohol or substance use disorder diagnoses. Available days or evenings, the program runs three days a week, three hours a day, for an average of 16 to 20 sessions. [facility] program is abstinence based and supports the use of a 12-step recovery program for obtaining and maintaining a chemical-free lifestyle. Alcoholics Anonymous (AA)/12-step program attendance, family involvement and random drug screenings are mandatory. Locations: [facility] [address] [place], [place] [address] [facility] [address], [address] [place], [place] [id number] You can reach Maria Elena to set up an appointment or to call with questions at [phone]. [place] [address] [place] [address] [facility] [address] , [address] [place], [place] [id number] Crisis Hotline [phone] [facility] Addiction Helpline [phone] (available 08:30 am to 4:00 pm) [facility] Crisis Center anytime @ [phone] for Alcohol & drug addiction help [facility] [address], [place], [place] [phone] ([facility] [phone]) [employer] ([place]) - [employer] [phone] [facility] [place] [phone] [facility] [place] [phone] [place] [phone] Della Alfonso MD - 11/26/2020 Images from the original note were not included. Make sure to avoid alcohol and make appointment to see DO Dr. Jamin Saez for Chronic Pancreatitis: Care Instructions Overview The pancreas is an organ behind the stomach that makes hormones and enzymes to help your body digest food. Sometimes the enzymes attack another part of the pancreas, which can cause pain and swelling. This is called pancreatitis. Chronic pancreatitis may cause you to be in pain much of the time. You may be able to help the pain by avoiding alcohol and eating a low-fat diet. Your doctor and dietitian can help you make an eating plan that does not irritate your digestive system. Always talk with your doctor or dietitian before you make changes in your diet. Follow-up care is a ko part of your treatment and safety. Be sure to make and go to all appointments, and call your doctor if you are having problems. It's also a good idea to know your test results and keep a list of the medicines you take. How can you care for yourself at home? Do not drink alcohol. It may make your pain worse and cause other problems. Tell your doctor if you need help to quit. Counseling, support groups, and sometimes medicines can help you stay sober. Ask your doctor if you need to take pancreatic enzyme pills to help your body digest fat and protein. Drink plenty of fluids. If you have kidney, heart, or liver disease and have to limit fluids, talk with your doctor before you increase the amount of fluids you drink. Eat a low-fat diet Eat many small meals and snacks each day instead of three large meals. Choose lean meats. ? Eat no more than 5 to 6 ounces of meat a day. ? Cut off all fat you can see. ? Eat chicken and turkey without the skin. ? Many types of fish, such as salmon, harris trout, tuna, and brown, provide healthy omega-3 fat. But avoid fish canned in oil, such as sardines in olive oil. ? Bake, broil, or grill meats, poultry, or fish instead of frying them in butter or fat. Drink or eat nonfat or low-fat milk, yogurt, cheese, or other milk products each day. ? Read the labels on cheeses, and choose those with less than 5 grams of fat an ounce. ? Try fat-free sour cream, cream cheese, or yogurt. ? Avoid cream soups and cream sauces on pasta. ? Eat low-fat ice cream, frozen yogurt, or sorbet. Avoid regular ice cream. Eat whole-grain cereals, breads, crackers, rice, or pasta. Avoid high-fat foods such as croissants, scones, biscuits, waffles, doughnuts, muffins, granola, and high-fat breads. Flavor your foods with herbs and spices (such as basil, tarragon, or mint), fat-free sauces, or lemon juice instead of butter. You can also use butter substitutes, fat-free mayonnaise, or fat-free dressing. Try applesauce, prune puree, or mashed bananas to replace some or all of the fat when you bake. Limit fats and oils, such as butter, margarine, mayonnaise, and salad dressing, to no more than 1 tablespoon a meal. Avoid high-fat foods, such as: ? Chocolate, whole milk, ice cream, processed cheese, and egg yolks. ? Fried or buttered foods. ? Sausage, salami, and rascon. ? Cinnamon rolls, cakes, pies, cookies, and other pastries. ? Prepared snack foods, such as potato chips, nut and granola bars, and mixed nuts. ? Coconut and avocado. Learn how to read food labels for serving sizes and ingredients. Fast-food and convenience-food meals often have lots of fat. Where can you learn more? Go to [email or web address] and sign in to your [employer] account. Enter S950 in the Search Health Information box to learn more about "Diet for Chronic Pancreatitis: Care Instructions." If you do not have an account, please click on the "Sign Up Now" link. Current as of: July 11, 2020 Content Version: 12.8 [employer]. Care instructions adapted under license by [employer]. If you have questions about a medical condition or this instruction, always ask your healthcare professional. [employer] disclaims any warranty or liability for your use of this information. Pancreatitis: Care Instructions Overview The pancreas is an organ behind the stomach. It makes hormones and enzymes to help your body digest food. But if these enzymes attack the pancreas, it can get inflamed. This is called pancreatitis. Most cases are caused by gallstones or by heavy alcohol use. If you take care of yourself at home, it will help you get better. It will also help you avoid more problems with your pancreas. How can you care for yourself at home? Drink clear liquids and eat bland foods until you feel better. Ritchie foods include rice, dry toast, and crackers. They also include bananas and applesauce. Eat a low-fat diet until your doctor says your pancreas is healed. Do not drink alcohol. Tell your doctor if you need help to quit. Counseling, support groups, and sometimes medicines can help you stay sober. Be safe with medicines. Read and follow all instructions on the label. ? If the doctor gave you a prescription medicine for pain, take it as prescribed. ? If you are not taking a prescription pain medicine, ask your doctor if you can take an bbcr-flt-zxsiycl medicine. If your doctor prescribed antibiotics, take them as directed. Do not stop taking them just because you feel better. You need to take the full course of antibiotics. Get extra rest until you feel better. To prevent future problems with your pancreas Do not drink alcohol. Tell your doctors and pharmacist that you've had pancreatitis. They can help you avoid medicines that may cause this problem again. Where can you learn more? Go to [email or web address] and sign in to your Ele[employer]ate account. Enter J381 in the Search Health Information box to learn more about Pancreatitis: Care Instructions." If you do not have an account, please click on the "Sign Up Now" link. Current as of: November 08, 2019 Content Version: 12.8 7665-2150 [employer]. Care instructions adapted under license by [employer]. If you have questions about a medical condition or this instruction, always ask your healthcare professional. [employer] disclaims any warranty or liability for your use of this information. documented in this encounter [facility] Work Phone: 07-17-2020 Note HNO ID: [id number] Author: Khloe Mullins Service: ? Author Type: Physician Paleology Teacher Type: Progress Notes Filed: 07/17/2020 12:59 PM Note Text: [facility] General Bone Health Program Subjective: Aga Adan is a 55 year old White male who presents today for a follow up on Prolia. Today will be his 2nd injection. Patient admits to taking Vitamin D and Calcium combination pill twice daily and a separate Vitamin D tablet, but he is unsure of dose of this supplementation. Admits to tolerating Prolia well. Admits to having some jaw pain, but is unsure if this is related to Prolia. Admits to clenching his teeth a lot. 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 Patient denies any recent injury, falls, fractures, or hospitalizations. PMHx includes: History of multiple fractures, history of type 2 diabetes, tobacco abuse, daily alcohol use, GERD and is on a daily PPI Are you compliant with taking your medication/injections: Yes Is there any irritation to injection site: No 1st Prolia: 01/17/20 Review of Systems: Reviewed orthopedic rn's note of ROS with the patient and agree with results. Objective: CONSTITUTIONAL: Patient is pleasant, cooperative, well developed, and well nourished in NAD. NEURO: Patient is alert and oriented x3. Speech is clear and coherent. Sensation intact to light touch. HENT: - Head: Normocephalic. Atraumatic. - Eyes: EOMI. Sclera white, conjuctiva pink. No erythema. - Nose: septum midline. No drainage noted. Nares patent bilaterally. - Throat: Mouth is clear. Oral mucosa pink. Dentition is intact. No evidence of tooth decay/broken teeth. Pharynx without edema, erythema, or exudate. - Neck: Trachea is midline. Full AROM. RESPIRATORY: Breathing is non-labored. SKIN: Warm and smooth to touch. No lacerations, open sores, rashes, or lesions noted on exposed skin. No skin depigmentation, dryness, erythema, or edema. Appropriate hair growth. MUSCULOSKELETAL: Wearing tall walker boot on right foot. Radiology: DATE OF EXAM: Sep 10:10AM ? AWX ? 0804 ?- ?BD DXA - AXIAL SKELETON ?/ PROCEDURE REASON: Special screening for osteoporosis ?? ? * * * * Physician Interpretation * * * * ?EXAM TITLE: BONE MINERAL DENSITOMETRY COMPARISON:None CLINICAL INDICATION/HISTORY: Adult fracture TECHNIQUE: ?DXA HWW-Watchsend v.13.4 examination was performed on the lumbar spine and hip. FINDINGS: 1. L1-L4 BMD is 0.8 g/cm2 which is 65% of peak bone mass compared to young normals which is -3.5 standard deviations relative to the mean of young normals (T-score). ?According to the World Health Organization criteria, this would be classified as osteoporosis. 2. Right hip BMD is 1 g/cm2 which is 91% of peak bone mass compared to young normals which is -0.7 standard deviations relative to the mean of young normals (T-score). ?According to the World Health Organization criteria, this would be classified as normal . 3. Right femoral neck BMD is 1 g/cm2 which is 93% of peak bone mass compared to young normals which is -0.6 standard deviations relative to the mean of young normals (T-score). ?According to the World Health Organization criteria, this would be classified as normal . ? IMPRESSION: ?There is osteoporosis within the assessed regions. RELATIVE FRACTURE RISK TABLE NOTE: ?This table applies to post-menopausal females. T-score ? Fracture risk ?? 0 ?average risk for normal 40 year old ??-1 ?2 times the normal ??-2 ?4 times the normal ??-3 ?8 times the normal etc. ? Labs: Component Latest Ref Rng AND Units 07/10/2020 Albumin 3.9 - 4.9 g/dL 4.4 Calcium 8.5 - 10.2 mg/dL 9.8 Phosphorus 2.7 - 4.8 mg/dL 2.6 (L) Glucose 74 - 99 mg/dL 123 (H) BUN 9 - 24 mg/dL 7 (L) Creatinine 0.73 - 1.22 mg/dL 0.64 (L) Sodium 136 - 144 mmol/L 134 (L) Potassium 3.7 - 5.1 mmol/L 3.9 Chloride 97 - 105 mmol/L 95 (L) CO2 22 - 30 mmol/L 26 Anion Gap 9 - 18 mmol/L 13 eGFR- >60 eGFR-All Other Races >60 Vitamin D 25 Hydroxy 30.0 - 100.0 ng/mL 20.8 (L) Assessment: 1. Osteoporosis of lumbar spine - ICD9: 733.00, ICD10: M81.0 (primary diagnosis) - VITAMIN D 25 HYDROXY - RENAL FUNCTION PANEL - CHOLECALCIFEROL (VITAMIN D3) 1,250 MCG (50,000 UNIT) CAPSULE - ADDITIONAL INJECTION/ARTHROCENTESIS 2. Encounter for ongoing osteoporosis non-bisphosphonate therapy - ICD9: 733.00, V58.69, ICD10: M81.0, Z79.899 - VITAMIN D 25 HYDROXY - RENAL FUNCTION PANEL - CHOLECALCIFEROL (VITAMIN D3) 1,250 MCG (50,000 UNIT) CAPSULE - ADDITIONAL INJECTION/ARTHROCENTESIS 3. Vitamin D deficiency - ICD9: 268.9, ICD10: E55.9 - VITAMIN D 25 HYDROXY - RENAL FUNCTION PANEL - CHOLECALCIFEROL (VITAMIN D3) 1,250 MCG (50,000 UNIT) CAPSULE 4. Jaw pain - ICD9: 784.92, ICD10: R68.84 5. History of fracture (more content not included)... [facility] 07-17-2020 Note HNO ID: [id number] Author: Manoj Stoddard Service: ? Author Type: ? Type: Progress Notes Filed: 07/17/2020 12:59 PM Note Text: REVIEW OF SYSTEMS: GENERAL: Well developed, well nourished. No acute distress PAIN: Lumbar, B Shoulder, Jaw Pain CARDIOVASCULAR: ME at Age 41, HTN MSK: Negative for joint pain, swelling, back pain, muscle pain. SKIN: Negative for lesions, rash, itching, metal sensitivity NEURO: Negative for seizure, trauma, numbness/tingling of extremities, headache ENDOCRINE: DM II Does Not Monitor Blood Sugars HEMATOLOGY: Negative for excessive bleeding, clots, bleeding disorders. HENT: Negative for jaw pain, difficulty swallowing, vision changes, gum disease, tooth decay GI: Frequent Upset Stomach after Eating [facility] 06-03-2020 Note HNO ID: [id number] Author: Della (Pt) Katina PT Service: ? Author Type: Physical Therapist Type: Progress Notes Filed: 06/03/2020 10:34 AM Note Text: 06/03/2020 [facility] PHYSICAL THERAPY DISCONTINUANCE OF CARE Plan of Care Period: Start of Care Date: 02/26/20 Last Visit Date: 04/09/2020 DC from PT at this time Della Hernandez, PT [facility] 04-29-2020 Note HNO ID: [id number] Author: Joseph Mooney Service: ? Author Type: Physician Type: Progress Notes Filed: 04/29/2020 10:50 AM Note Text: HPI: Aga Adan is a 55 year old male who presents today for follow-up of low back pain. Last saw him over a month ago and recommended he continue with physical therapy to see if this will improve his pain and function. He continues to have foot issues and and a walker boot until he can get surgery to fix. He has had 9 visits of physical therapy thus far. Still has hand pain. We had EMG testing done which showed carpal tunnel issues but no cubital tunnel issues which was our greatest concern. PAST MEDICAL HISTORY Diagnosis Date - Acquired valgus deformity of foot, right - Anemia - Diabetes (HCC) - GERD (gastroesophageal reflux disease) - HTN (hypertension) - Hyperlipidemia - Myocardial infarct (HCC) 2006 - Pancreatic cyst 06/08/2019 - Pancreatitis - Post-traumatic arthritis of ankle, right - Shingles 10/28/2018 PAST SURGICAL HISTORY Procedure Laterality Date - CHOLECYSTECTOMY 2016 - COLONOSCOPY 07/15/2017 external grade 1 hemmorhoids - EGD 08/03/2017 bile gastric fluid, neg H pylori - HEART CATHETERIZATION 2017 - HIP SURGERY HX Left 05/2016 GIANNA - KNEE SURGERY HX Right 1983 - PANCREAS 06/08/2019 - PAST SURGICAL HISTORY OF 06/2018 BACK - PAST SURGICAL HISTORY OF Right 12/07/2018 R Ankle - SHOULDER SURGERY HX Bilateral 2009 RCR Social History Tobacco Use - Smoking status: Former Smoker Types: Cigars - Smokeless tobacco: Current User Types: Chew - Tobacco comment: 3 cigars/week Substance Use Topics - Alcohol use: Yes Comment: daily 3 beers - Drug use: No Current Outpatient Medications Medication Sig - docusate sodium (COLACE ORAL) Take by mouth. - predniSONE (DELTASONE) 10 mg tablet Take 10 mg by mouth once daily. 11 days - valacyclovir HCl (VALTREX ORAL) Take by mouth. - denosumab (PROLIA) 60 mg/mL Inject 1 mL subcutaneously once every 6 months. - metformin HCl (METFORMIN ORAL) Take 1,000 mg by mouth twice daily. - B Complex Vitamins capsule Take 1 capsule by mouth once daily. - Multivitamin capsule Take 1 capsule by mouth once daily. - Ascorbic Acid (VITAMIN C) 1,000 mg tablet Take 1,000 mg by mouth once daily. Takes 2 tablets daily - Joan, Zingiber officinalis, (JOAN EXTRACT) 250 mg cap Take by mouth. 2 pills daily - buPROPion XL (WELLBUTRIN XL) 150 mg 24 hr tablet once daily. - fluticasone (FLONASE) 50 mcg/actuation nasal spray 2 Sprays once daily. - QUEtiapine (SEROQUEL) 50 mg tablet daily at bedtime. 2 pills at bedtime - atenolol (TENORMIN) 50 mg tablet once daily. - QVAR 40 mcg/actuation inhaler 2 Puffs as needed. - Omeprazole 40 mg capsule Take 40 mg by mouth once daily. - gabapentin (NEURONTIN) 300 mg capsule TAKE 1 CAPSULE BY MOUTH AT 3PM AND 1 CAPSULE BY MOUTH AT BEDTIME - zoledronic acid (RECLAST) 5 mg/100 mL pgbk PREMIX piggyback Inject 100 mL intravenously one time only for 1 dose. Once only for 1 time - aspirin, enteric coated (ASPIRIN, ENTERIC COATED) 81 mg EC tablet Take 1 tablet by mouth twice daily for 14 days. - gabapentin (NEURONTIN) 300 mg capsule Take 1 capsule by mouth daily at bedtime for 30 days. - verapamil (CALAN, ISOPTIN) 40 mg tablet Take 40 mg by mouth three times daily. - methylPREDNISolone (MEDROL, TOYA,) 4 mg Dose-Pack Take 1 tablet by mouth as directed. As directed on package (Patient not taking: Reported on 03/08/2020 ) - VIIBRYD 10 mg daily with breakfast. - hydrocortisone (ANUSOL-HC) 2.5 % rectal cream 1 Applicator by RECTAL route twice daily. (Patient taking differently: 1 Applicator by RECTAL route as needed. ) - ondansetron (ZOFRAN) 4 mg tablet every 8 hours as needed. - gemfibrozil (LOPID) 600 mg tablet twice daily. No current facility-administered medications for this visit. ALLERGIES No Known Allergies REVIEW OF SYSTEMS: GENERAL: Well developed, well nourished. No acute distress PAIN: Pain lower back, peter hands CARDIOVASCULAR: hypertension MSK: joint pain lower back, peter hands SKIN: Negative for lesions, rash, itching, metal sensitivity NEURO: Negative for seizure, trauma, numbness/tingling of extremities. ENDOCRINE: Diabetes Type 2 On medication HEMATOLOGY: Negative for excessive bleeding, clots, bleeding disorders. Resp 18 Ht 5' 7" (1.70m) Wt 195 lb (88.5kg) BMI 30.53 kg/(m2). EXAM: Examination of the hands reveals positive Tinel testing bilaterally. Negative Tinel testing of the cubital tunnel. Normal sensation, reflexes, and pulses ASSESSMENT: (M54.42, G89.29) Chronic left-sided low back pain with left-sided sciatica (primary encounter diagnosis) (R20.0) Bilateral hand numbness PLAN: Has carpal tunnel issues. Declines injections but will use cock up wrist splints. Call if wants to meet with spine and pain. He is currently more focused on improving his anemia issues and hemorrhoid (more content not included)... [facility] 04-09-2020 Note HNO ID: [id number] Author: Della (Pt) RENETTA Hernandez Service: ? Author Type: Physical Therapist Type: Progress Notes Filed: 04/09/2020 11:38 AM Note Text: Episode Visit Count: 9 Therapist That Will Oversee The Plan Of Care: Katina Start of Care Date: 02/26/20 Plan of Care Certification Date: 02/26/20 Next Certification Due Date: 05/26/20 [facility]ER[facility]Y PHYSICAL THERAPY TREATMENT NOTE ASSESSMENT: Aga Adan demonstrated difficulty with forward bending motions due to back pain, but no increased pain with activities done in the clinic. The patient will continue to benefit from ongoing skilled physical therapy for core strengthening. PLAN FOR NEXT VISIT: Re-assessment SUBJECTIVE: Reports that he feels some increased soreness in the low back today. Has been going on since Wednesday. Feels stronger though since he began therapy. Pain: Pain Pain Level: 5 Pain Location: Back OBJECTIVE MEASURES WITH LEVEL OF FUNCTION: Lumbar Spine AROM Lumbar Flexion: Moderate limitation;Minimal limitation LE Flexibility R Hamstring Flexibility: tight L Hamstring Flexibility: tight TREATMENT: Therapeutic Exercise: 3: PB bridge 5" x 10x2 4: LTR / DKTC x 20 with PB 5: sahrmans #2 2x10 7: rower unsupported SA 2.5 pl 10-10 x 3 8: straight arm pul downs 3x15 7 plates 9: paloff press 3pl seated PB 10 x 2 each 5" 10: seated THOR ext at plinth 5" x 20 12: CC rot 4pl 10 x 2 each Skilled Intervention: Patient was educated in proper exercise technique and purpose for exercises. Skilled judgment was provided in selection of appropriate interventions. Billing: [place]: Therapeutic Exercise ([id number]): 1:1 time: 40 minutes (3 units: 38-52 mins) Total time / Length of visit: 45 minutes Della Hernandez, PT [facility] 04-04-2020 Note HNO ID: [id number] Author: Maria Luisa Chaudhary PT ASSIST Service: ? Author Type: Seam Press Operator Type: Progress Notes Filed: 04/04/2020 11:45 AM Note Text: Episode Visit Count: 8 Therapist That Will Oversee The Plan Of Care: Katina Start of Care Date: 02/26/20 Plan of Care Certification Date: 02/26/20 Next Certification Due Date: 05/26/20 REHABILITATION AND SPORTS THERAPY PHYSICAL THERAPY TREATMENT NOTE ASSESSMENT: Aga Adan demonstrated good tolerance we to the exercises in the clinic. The patient will continue to benefit from ongoing skilled physical therapy for progression towards established goals. PLAN FOR NEXT VISIT: Progress with stabilization of lumbar spine and mobilization of thoracic spine. SUBJECTIVE: The patient notes the foot / ankle has been more sore recently. 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 Pain: Addressed in subjective. OBJECTIVE MEASURES WITH LEVEL OF FUNCTION: No objective measures taken this date. TREATMENT: Therapeutic Exercise: 3: PB bridge 5" x 10x2 4: LTR / DKTC x 20 with PB 5: sahrmans #2 2x10 7: rower unsupported SA 2.5 pl 10-10 x 3 8: straight arm pul downs 3x15 7 plates 9: paloff press 3pl seated PB 10 x 2 each 5" 10: seated THOR ext at plinth 5" x 20 11: seated THOR rot at plinth 12: CC rot 4pl 10 x 2 each Skilled Intervention: Patient was educated in proper exercise technique and purpose for exercises. Skilled judgment was provided in selection of appropriate interventions. Correct performance of therapeutic exercises was facilitated with verbal cuing. Billing: [place]: Therapeutic Exercise ([id number]): 1:1 time: 43 minutes (3 units: 38-52 mins) Total time / Length of visit: 43 minutes Maria Luisa Chaudhary PTA [facility] 03-27-2020 Note HNO ID: [id number] Author: Spencer (Pt) RENETTA Freitas Service: ? Author Type: Physical Therapist Type: Progress Notes Filed: 03/27/2020 10:46 AM Note Text: Episode Visit Count: 7 Therapist That Will Oversee The Plan Of Care: Katina Start of Care Date: 02/26/20 Plan of Care Certification Date: 02/26/20 Next Certification Due Date: 05/26/20 REHABILITATION AND SPORTS THERAPY PHYSICAL THERAPY PROGRESS REPORT PLAN OF CARE UPDATE: Assessment: Aga Adan exhibits difficulty with extended periods on his feet. He has many orthopaedic and medical issues that are likely slowing progress. . He continues to be limited with standing, walking, stair negotiation, heavy exertion and physical activities. He is progressing as expected towards his therapy goals as demonstrated by: home exercise program compliance. He will benefit from continued skilled therapy requiring further lumbar stabilization in order to improve the above mentioned areas, as these are still having a considerable effect on the patients overall physical function. . Functional gains: Decreased intensity of pain Goals for Episode of Care: created on 02/26/20 through 04/26/20 [place] in home exercise program. - progressing Patient will decrease pain rating by 2 points to meet minimal clinical important difference for numeric pain rating scale. - not met Patient will demonstrate increase in hips and core by one full MMT grade - not assessed Perform standing activities with decreased report of symptoms/pain in 4-6 weeks. 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 SUBJECTIVE: . Pt notes that his LB is currently the worst area of all his concerns. Notes limited to no more than 30 minutes of upright activity that involves standing. Also bilateral ulnar sided N/T at night. Pt notes more pain in between shoulder blades. Has history of pain for 15 + yrs. Pt feels he is about 50% improved since starting PT. Pain: PROMIS Scales T-scores: mean of general population = 50. 5 points is clinically meaningfully difference Percentiles provide an indication of how the patient's score ranks in relation to the general population. Higher percentile rankings indicate better function/quality of life. 50th percentile is the average of the general population and indicates half of respondents had a worse score. T-scores: mean of general population = 50. 5 points is clinically meaningfully difference Percentiles provide an indication of how the patient's score ranks in relation to the general population. Higher percentile rankings indicate better function/quality of life. 50th percentile is the average of the general population and indicates half of respondents had a worse score. OBJECTIVE MEASURES WITH LEVEL OF FUNCTION: Lumbar Spine AROM Lumbar Flexion: Minimal limitation Lumbar Extension: Minimal limitation Lumbar R Side [place]: Minimal limitation Lumbar L Side [place]: Normal PA's in thoracic and lumbar - lower thoracic PA's produce right scapular pain, -lower lumbar local, familiar discomfort Low muscle tone in lumbar paraspinal region, tender lower lumbar multifidus TREATMENT: Therapeutic Exercise: 2: seated in chair self mid thoracic mobilizations 3 x 10 3: Verbally reviewed exercises. Discussed how exercises are not difficulty, just fatiguing. 14: attempted heel lift in left shoe to level out boot. Upon trial of walking, no significant difference, so lift removed. Skilled Intervention: Skilled judgment was provided in selection of appropriate interventions. Billing: [place]: Therapeutic Exercise ([id number]): 1:1 time: 40 minutes (3 units: 38-52 mins) Total time / Length of visit: 40 minutes Spencer Freitas PT [facility] 03-25-2020 Note HNO ID: [id number] Author: Tc Lloyd (Tech) Service: ? Author Type: Wall Washer Type: Progress Notes Filed: 03/26/2020 8:37 AM Note Text: REVIEW OF SYSTEMS: GENERAL: Well developed, well nourished. No acute distress PAIN: Negative for pain, history of chronic pain or current treatment for chronic pain conditions CARDIOVASCULAR: Negative for chest pain, leg swelling and palpations. MSK: joint pain yes and back pain yes SKIN: Negative for lesions, rash, itching, metal sensitivity NEURO: Numbness/tingling of extremties and yes/ peter foot and peter hand ENDOCRINE: Diabetes Type 2 yes HEMATOLOGY: Excessive bleeding yes [facility] 03-25-2020 Note HNO ID: [id number] Author: Joseph Mooney Service: ? Author Type: Physician Type: Progress Notes Filed: 03/26/2020 8:37 AM Note Text: HPI: Aga Adan is a 54 year old male who presents today for follow-up of bilateral hand numbness issues. His EMG showed no evidence for cubital tunnel but does have mild to moderate carpal tunnel bilaterally. The most intense symptoms are in the fourth and fifth digit especially at night. Does have some mild weakness of the hand that he notices with his daily activities and drops things occasionally. Continues to struggle with back pain especially in the morning. He has done 7 visits of physical therapy which has helped with some core strengthening but still struggles with the pain. He is uncertain if he has increased tolerance to standing and walking movements. 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 PAST MEDICAL HISTORY Diagnosis Date - Acquired valgus deformity of foot, right - Anemia - Diabetes (HCC) - GERD (gastroesophageal reflux disease) - HTN (hypertension) - Hyperlipidemia - Myocardial infarct (HCC) 2006 - Pancreatic cyst 06/08/2019 - Pancreatitis - Post-traumatic arthritis of ankle, right - Shingles 10/28/2018 PAST SURGICAL HISTORY Procedure Laterality Date - CHOLECYSTECTOMY 2017 - COLONOSCOPY 07/15/2017 external grade 1 hemmorhoids - EGD 08/03/2017 bile gastric fluid, neg H pylori - HEART CATHETERIZATION 2016 - HIP SURGERY HX Left 05/2016 GIANNA - KNEE SURGERY HX Right 1983 - PANCREAS 06/08/2019 - PAST SURGICAL HISTORY OF 06/2018 BACK - PAST SURGICAL HISTORY OF Right 12/07/2018 R Ankle - SHOULDER SURGERY HX Bilateral 2009 RCR Social History Tobacco Use - Smoking status: Former Smoker Types: Cigars - Smokeless tobacco: Current User Types: Chew - Tobacco comment: 3 cigars/week Substance Use Topics - Alcohol use: Yes Comment: daily 3 beers - Drug use: No Current Outpatient Medications Medication Sig - docusate sodium (COLACE ORAL) Take by mouth. - predniSONE (DELTASONE) 10 mg tablet Take 10 mg by mouth once daily. 11 days - valacyclovir HCl (VALTREX ORAL) Take by mouth. - gabapentin (NEURONTIN) 300 mg capsule TAKE 1 CAPSULE BY MOUTH AT 3PM AND 1 CAPSULE BY MOUTH AT BEDTIME - denosumab (PROLIA) 60 mg/mL Inject 1 mL subcutaneously once every 6 months. - aspirin, enteric coated (ASPIRIN, ENTERIC COATED) 81 mg EC tablet Take 1 tablet by mouth twice daily for 14 days. - verapamil (CALAN, ISOPTIN) 40 mg tablet Take 40 mg by mouth three times daily. - B Complex Vitamins capsule Take 1 capsule by mouth once daily. - Multivitamin capsule Take 1 capsule by mouth once daily. - Ascorbic Acid (VITAMIN C) 1,000 mg tablet Take 1,000 mg by mouth once daily. Takes 2 tablets daily - Joan, Zingiber officinalis, (JOAN EXTRACT) 250 mg cap Take by mouth. 2 pills daily - buPROPion XL (WELLBUTRIN XL) 150 mg 24 hr tablet once daily. - fluticasone (FLONASE) 50 mcg/actuation nasal spray 2 Sprays once daily. - QUEtiapine (SEROQUEL) 50 mg tablet daily at bedtime. 2 pills at bedtime - atenolol (TENORMIN) 50 mg tablet once daily. - QVAR 40 mcg/actuation inhaler 2 Puffs as needed. - Omeprazole 40 mg capsule Take 40 mg by mouth once daily. - zoledronic acid (RECLAST) 5 mg/100 mL pgbk PREMIX piggyback Inject 100 mL intravenously one time only for 1 dose. Once only for 1 time - metformin HCl (METFORMIN ORAL) Take 1,000 mg by mouth twice daily. - gabapentin (NEURONTIN) 300 mg capsule Take 1 capsule by mouth daily at bedtime for 30 days. - methylPREDNISolone (MEDROL, TOYA,) 4 mg Dose-Pack Take 1 tablet by mouth as directed. As directed on package (Patient not taking: Reported on 03/08/2020 ) - VIIBRYD 10 mg daily with breakfast. - hydrocortisone (ANUSOL-HC) 2.5 % rectal cream 1 Applicator by RECTAL route twice daily. (Patient taking differently: 1 Applicator by RECTAL route as needed. ) - ondansetron (ZOFRAN) 4 mg tablet every 8 hours as needed. - gemfibrozil (LOPID) 600 mg tablet twice daily. No current facility-administered medications for this visit. ALLERGIES No Known Allergies Temp 98.3 Ht 5' 7" (1.70m) Wt 195 lb (88.5kg) BMI 30.53 kg/(m2). EXAM: Examination of the lumbar spine reveals tenderness of para spinal muscles at L5. Pain with straight leg raise of the Left leg. Pain with lumbar flexion and rotation. Weakness with testing of Left leg quadriceps, hamstrings, and hip flexors. Stork testing negative. Antalgic gait secondary to foot issues. Normal sensation, reflexes, and pulses ASSESSMENT: (M54.42, G89.29) Chronic left-sided low back pain with left-sided sciatica (primary encounter diagnosis) PLAN: Aga is struggling with multiple issues causing physical pain. The foot continues to hurt and his gait dysfunction is likely causing continued lumbar strain. Additionally his anemia (more content not included)... [facility] 03-21-2020 Note HNO ID: [id number] Author: Maria Luisa Chaudhary PT ASSIST Service: ? Author Type: Seam Press Operator Type: Progress Notes Filed: 03/21/2020 10:14 AM Note Text: Episode Visit Count: 6 Therapist That Will Oversee The Plan Of Care: Katina Start of Care Date: 02/26/20 Plan of Care Certification Date: 02/26/20 Next Certification Due Date: 05/26/20 REHABILITATION AND SPORTS THERAPY PHYSICAL THERAPY TREATMENT NOTE ASSESSMENT: Aga Adan demonstrated difficulty with transitional movements due to increased pain. He was abl to complete the core strengthening / mobility exercises but with a slowed / somewhat guarded pace. The patient will continue to benefit from ongoing skilled physical therapy for progression towards established goals. PLAN FOR NEXT VISIT: progress with exercises as tolerated SUBJECTIVE: The patient has been experiencing some increased pain this week. Primarily in the upper and low back. He slept poorly last night as he was getting some finger N:T that was actually painful. Pain: Addressed in subjective. OBJECTIVE MEASURES WITH LEVEL OF FUNCTION: No objective measures taken this date. TREATMENT: Therapeutic Exercise: 3: bridge PB x 20 5" hold 4: LTR / DKTC x 20 with PB 5: sahrmans #2 2x10 6: curl ups 2x10 PB lift 7: rower unsupported SA 2.5 pl 10-10 x 3 8: straight arm pul downs 3x15 6 plates 9: paloff press 3pl seated PB 10 x 2 each 5" 10: seated THOR ext at plinth 5" x 20 11: seated THOR rot at plinth 12: long lever CC rot 3pl 10 x 2 each 13: prone hip abd iso 10" x 10 belt Skilled Intervention: Patient was educated in proper exercise technique and purpose for exercises. Skilled judgment was provided in selection of appropriate interventions. Correct performance of therapeutic exercises was facilitated with verbal and tactile cuing. Billing: [place]: Therapeutic Exercise ([id number]): 1:1 time: 42 minutes (3 units: 38-52 mins) Total time / Length of visit: 42 minutes Maria Luisa Chaudhary PTA [facility] 03-14-2020 Note HNO ID: [id number] Author: Maria Luisa Chaudhary PT ASSIST Service: ? Author Type: Seam Press Operator Type: Progress Notes Filed: 03/14/2020 10:13 AM Note Text: Episode Visit Count: 5 Therapist That Will Oversee The Plan Of Care: Katina Start of Care Date: 02/26/20 Plan of Care Certification Date: 02/26/20 Next Certification Due Date: 05/26/20 REHABILITATION AND SPORTS THERAPY PHYSICAL THERAPY TREATMENT NOTE ASSESSMENT: Aga Adan demonstrated some slowed and guarded movements / transitions during the session but was able to complete the exercises with minmal complaints. The patient will continue to benefit from ongoing skilled physical therapy for progression towards established goals. PLAN FOR NEXT VISIT: progress with exercises as tolerated SUBJECTIVE: The patient notes increased low back pain since over- doing it on a project at home 2 days ago. Pain: Addressed in subjective. OBJECTIVE MEASURES WITH LEVEL OF FUNCTION: No objective measures taken this date. TREATMENT: Therapeutic Exercise: 3: bridge PB x 20 5" hold 4: LTR x 20 with PB 5: sahrmans #2 2x10 6: curl ups 2x10 PB lift 7: rower unsupported 3.5 pl 10-15 x 3 8: straight arm pul downs 3x15 5 plates 9: paloff press 3pl seated PB 10 x 2 each 5" 10: seated THOR ext at plinth 5" x 20 11: seated THOR rot at plinth 12: wood choppers 4pl 10 x 2 each hi-lo 13: prone hip abd iso 10" x 10 belt Skilled Intervention: Patient was educated in proper exercise technique and purpose for exercises. Skilled judgment was provided in selection of appropriate interventions. Correct performance of therapeutic exercises was facilitated with verbal and tactile cuing. Billing: [place]: Therapeutic Exercise ([id number]): 1:1 time: 45 minutes (3 units: 38-52 mins) Total time / Length of visit: 45 minutes Maria Luisa Chaudhary PTA [facility] 03-12-2020 Note HNO ID: [id number] Author: Maria Luisa Chaudhary PT ASSIST Service: ? Author Type: Seam Press Operator Type: Progress Notes Filed: 03/12/2020 10:15 AM Note Text: Episode Visit Count: 4 Therapist That Will Oversee The Plan Of Care: Katina Start of Care Date: 02/26/20 Plan of Care Certification Date: 02/26/20 Next Certification Due Date: 05/26/20 REHABILITATION AND SPORTS THERAPY PHYSICAL THERAPY TREATMENT NOTE ASSESSMENT: Aga Adan demonstrated good toleracne to the exercises in the clinic. He is still challenged by the TrA strengthening. The patient will continue to benefit from ongoing skilled physical therapy for progression towards established goals. PLAN FOR NEXT VISIT: progress with exercises as tolerated SUBJECTIVE: Hip and LB better since injection. Currently right - sided thoracic discomfort is primary complaint. He is doing the exercises intermittently through the day. Pain: Addressed in subjective. OBJECTIVE MEASURES WITH LEVEL OF FUNCTION: No objective measures taken this date. TREATMENT: Therapeutic Exercise: 3: bridge PB x 20 5" hold 4: LTR x 20 with PB 5: sahrmans #2 2x10 6: curl ups 2x10 PB lift 7: rower unsupported 3.5 pl 10-15 x 3 8: straight arm pul downs 3x10 5 plates 9: paloff press 3pl seated PB 10 x 2 each 5" 10: seated THOR ext at plinth 5" x 20 11: seated THOR rot at plinth Skilled Intervention: Patient was educated in proper exercise technique and purpose for exercises. Skilled judgment was provided in selection of appropriate interventions. Correct performance of therapeutic exercises was facilitated with verbal cuing. Billing: [place]: Therapeutic Exercise ([id number]): 1:1 time: 45 minutes (3 units: 38-52 mins) Total time / Length of visit: 45 minutes Maria Luisa Chaudhary PTA [facility] 03-10-2020 Note HNO ID: [id number] Author: Earnest Liang Service: ? Author Type: Physician Type: Progress Notes Filed: 03/28/2020 4:12 PM Note Text: DOS: 12/11/2018 POD: ~16.5 months Procedure: 1. Ankle arthrodesis, right 2. Distal tibiofibular joint arthrodesis, right 3. Bone marrow aspiration, right tibia This 54 year old male presents for a post op visit. He is here to discuss the lab results and to discuss revision of the non union. Patient is very frustrated and upset with his course of treatment. 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 Admits that he stopped tobacco use despite elevated labs. He wants to proceed with the non union revision despite the risks of another non union. Does admit to pain and has been partial weightbearing in his boot. Denies any current nausea, vomiting, fever, chills, shortness of breath, chest pain or calf pain. Denies any other pedal complaints. PAST MEDICAL HISTORY Diagnosis Date - Acquired valgus deformity of foot, right - Anemia - Diabetes (HCC) - GERD (gastroesophageal reflux disease) - HTN (hypertension) - Hyperlipidemia - Myocardial infarct (HCC) 2006 - Pancreatic cyst 06/08/2019 - Pancreatitis - Post-traumatic arthritis of ankle, right - Shingles 10/28/2018 Current Outpatient Medications Medication Sig - docusate sodium (COLACE ORAL) Take by mouth. - valacyclovir HCl (VALTREX ORAL) Take by mouth. - gabapentin (NEURONTIN) 300 mg capsule TAKE 1 CAPSULE BY MOUTH AT 3PM AND 1 CAPSULE BY MOUTH AT BEDTIME - denosumab (PROLIA) 60 mg/mL Inject 1 mL subcutaneously once every 6 months. - metformin HCl (METFORMIN ORAL) Take 1,000 mg by mouth twice daily. - gabapentin (NEURONTIN) 300 mg capsule Take 1 capsule by mouth daily at bedtime for 30 days. - verapamil (CALAN, ISOPTIN) 40 mg tablet Take 40 mg by mouth three times daily. - B Complex Vitamins capsule Take 1 capsule by mouth once daily. - Multivitamin capsule Take 1 capsule by mouth once daily. - Ascorbic Acid (VITAMIN C) 1,000 mg tablet Take 1,000 mg by mouth once daily. Takes 2 tablets daily - buPROPion XL (WELLBUTRIN XL) 150 mg 24 hr tablet once daily. - fluticasone (FLONASE) 50 mcg/actuation nasal spray 2 Sprays once daily. - QUEtiapine (SEROQUEL) 50 mg tablet daily at bedtime. 2 pills at bedtime - ondansetron (ZOFRAN) 4 mg tablet every 8 hours as needed. - atenolol (TENORMIN) 50 mg tablet once daily. - QVAR 40 mcg/actuation inhaler 2 Puffs as needed. - Omeprazole 40 mg capsule Take 40 mg by mouth once daily. - predniSONE (DELTASONE) 10 mg tablet Take 10 mg by mouth once daily. 11 days - zoledronic acid (RECLAST) 5 mg/100 mL pgbk PREMIX piggyback Inject 100 mL intravenously one time only for 1 dose. Once only for 1 time - aspirin, enteric coated (ASPIRIN, ENTERIC COATED) 81 mg EC tablet Take 1 tablet by mouth twice daily for 14 days. - methylPREDNISolone (MEDROL, TOYA,) 4 mg Dose-Pack Take 1 tablet by mouth as directed. As directed on package (Patient not taking: Reported on 03/08/2020 ) - Joan, Zingiber officinalis, (JOAN EXTRACT) 250 mg cap Take by mouth. 2 pills daily - VIIBRYD 10 mg daily with breakfast. - hydrocortisone (ANUSOL-HC) 2.5 % rectal cream 1 Applicator by RECTAL route twice daily. (Patient taking differently: 1 Applicator by RECTAL route as needed. ) - gemfibrozil (LOPID) 600 mg tablet twice daily. No current facility-administered medications for this visit. ALLERGIES No Known Allergies Objective: Patient presents partial weightbearing to right leg. Patient refuses exam and would like like to talk about lab results. His mood is very upset and frustrated Note has facial droop due to bells palsy. 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 All questions were answered to patient's apparent satisfaction. - Discussed non union in detail and course of treatments. We will not proceed with surgery until his cotinine labs are decreased/ normal. Will also have to determine source of anemia - Patient to continue to partial weightbearing to the operative extremity in his boot and crutches. - Discussed patient will need revision of right ankle arthrodesis given nonunion despite NWB in cast/boot?and bone stimulator. - Patient now with bells palsy and anemia which required transfusion - Patient still has elevated cotinine levels - Discussed smoking cessation with the patient about ways to using the chewing tobacco as that can delay bone healing. - Patient very frustrated with treatment and was offered a referral for a second opinion but refused. - reordered nicotine and cotinine labs Patient to wishes to call for a follow up Violeta Monroy, DPM PGY3 I personally saw and evaluated the patient. I reviewed the resident's note. I agree with the resi (more content not included)... [facility] 03-08-2020 Note HNO ID: [id number] Author: Judy Daniels Service: ? Author Type: Physician Type: Procedures Filed: 03/08/2020 3:08 PM Note Text: Patient Name: Aga Adan Date: March 08, 2020 Patient : 1965 Patient Age: [age] year old CC: Patient presents with: EMG: bilateral uppers Vitals: Temp 36.3 ?C (97.3 ?F) Ht 170.2 cm (5' 7") Wt 90.7 kg (200 lb) BMI 31.32 kg/m? The HANDP completed. He has Bl hand numbness for 2 years I have reviewed the history and physical and examined the patient and there are no changes unless noted below: no atrophy noted Timeout was performed to verify patient name, , allergies and procedure being performed. Patient is aware of potential risks and benefits of this procedure. Patient wishes to proceed. Procedure start time: 236 Procedure end time: 300 Electrodiagnostic testing was performed today was significant for mild left, moderate right carpal tunnel, no evidence of cubital tunnel bilaterally. Full report and data will be scanned into the chart. Return if symptoms worsen or fail to improve. ASSESSMENT/PLAN: 1. Pain in both upper extremities - ICD9: 729.5, ICD10: M79.601, M79.602 (primary diagnosis) - NEEDLE EMG EA EXTREMTY W/PARASPINL AREA COMPLETE - MOTOR AND/SENS 11-12 NRV CNDJ PRECONF ELTRODE LIMB Judy Daniels MD [facility] 03-08-2020 Note Procedure (SPAGBA) [place] ([id number]) 1965 M Date Time Provider Department 03/08/20 2:30 PM JUDY DANIELS During your visit today, we recorded the following information about you: Temperature Weight Height 97.3 degrees 90.7 kg 1.702 m Earnest Morales CMA 03/08/2020 2:30 PM Signed Review of Systems Eyes: Positive for blurred vision. Respiratory: Negative for shortness of breath.? Cardiovascular: Negative for chest pain. Negative for leg swelling. Gastrointestinal: Negative for constipation, diarrhea, nausea?and vomiting. Genitourinary: Positive for dysuria. Skin: Negative for itching. Neurological: Positive for headaches. Negative for dizziness, Positive tingling?and weakness. Endo/Heme/Allergies: Negative for bruising/bleeding easily. Psychiatric/Behavioral: Positive for depression?and Negative suicidal ideas. ROS entered by:KIRA Yeager MD 03/08/2020 3:08 PM Signed Patient Name: Aga Adan Date: March 08, 2020 Patient : 1965 Patient Age: [age] year old CC: Patient presents with: EMG: bilateral uppers Vitals: Temp 36.3 ?C (97.3 ?F) Ht 170.2 cm (5' 7") Wt 90.7 kg (200 lb) BMI 31.32 kg/m? The HANDP completed. He has Bl hand numbness for 2 years I have reviewed the history and physical and examined the patient and there are no changes unless noted below: no atrophy noted Timeout was performed to verify patient name, , allergies and procedure being performed. Patient is aware of potential risks and benefits of this procedure. Patient wishes to proceed. Procedure start time: 236 Procedure end time: 300 Electrodiagnostic testing was performed today was significant for mild left, moderate right carpal tunnel, no evidence of cubital tunnel bilaterally. Full report and data will be scanned into the chart. Return if symptoms worsen or fail to improve. ASSESSMENT/PLAN: 1. Pain in both upper extremities - ICD9: 729.5, ICD10: M79.601, M79.602 (primary diagnosis) - NEEDLE EMG EA EXTREMTY W/PARASPINL AREA COMPLETE - MOTOR AND/SENS 11-12 NRV CNDJ PRECONF ELTRODE LIMB MD Judy Zavala MD 03/08/2020 2:37 PM Signed Explanation of EMG and NCV Procedure Nerve conduction studies (NCS) and electromyography (EMG) are utilized to evaluate damage sustained to the peripheral nervous system. NCS are performed to measure the nerve response to electrical stimulation across a given segment. EMG evaluates the passive and active electrical discharges of the muscle, as specific nerves and roots innervate muscles of the body. Often times, more than one muscle motor nerve and sensory nerve must be studied to determine the presences of disease. Further, nerves are often tested in a [id number] comparison, as well as, additional extremities and are crucial in isolating the area of the spine and/or distal nerve that has been damaged so that the diagnosis and treatment of the patient can be achieved. Therefore, the muscles and nerves examined were medically necessary. Referring Provider: JOSEPH MOONEY [[id number]] Allergies As of Date: 03/08/2020 (No Known Allergies) Date Reviewed: 03/08/2020 Reviewed by: Judy Daniels - Fully Assessed Reason for Visit: EMG [2011] Cmt: bilateral uppers Primary Visit Diagnosis:Pain in both upper extremities [M79.601, M79.602] Order(s):EMG(NEURO/NI) [[id number]] Order #: [id number]: 1 NEEDLE EMG EA EXTREMTY W/PARASPINL AREA COMPLETE [[id number]] Order #: [id number] MOTOR AND/SENS 11-12 NRV CNDJ PRECONF ELTRODE LIMB [[id number]] Order #: [id number] Prescriptions as of 03/08/2020 Sig: COLACE ORAL Take by mouth. PREDNISONE 10 MG TABLET Take 10 mg by mouth once willi* VALTREX ORAL Take by mouth. GABAPENTIN 300 MG CAPSULE TAKE 1 CAPSULE BY MOUTH AT 3P* PROLIA 60 MG/ML SUBCUTANEOUS * Inject 1 mL subcutaneously on* METFORMIN ORAL Take 1,000 mg by mouth twice * VITAMIN B COMPLEX CAPSULE Take 1 capsule by mouth once * MULTIVITAMIN CAPSULE Take 1 capsule by mouth once * ASCORBIC ACID (VITAMIN C) 1,0* Take 1,000 mg by mouth once d* JOAN (ZINGIBER OFFICINALIS)* Take by mouth. 2 pills daily BUPROPION XL 150 MG TAB once daily. FLUTICASONE PROPIONATE 50 MCG* 2 Sprays once daily. HYDROCORTISONE 2.5 % TOPICAL * 1 Applicator by RECTAL route * Patient taking differently: 1 Applicator by RECTAL route * QUETIAPINE 50 MG TABLET daily at bedtime. 2 pills at * ATENOLOL 50 MG TABLET once daily. QVAR 40 MCG/ACTUATION METERED* 2 Puffs as needed. OMEPRAZOLE 40 MG CAPSULE,EBONIE* Take 40 mg by mouth once willi* ZOLEDRONIC ACID 5 MG/100 ML I* Inject 100 mL intravenously o* ASPIRIN 81 MG TABLET,DELAYED * Take 1 tablet by mouth twice * GABAPENTIN 300 MG CAPSULE Take 1 capsule by mouth daily* VERAPAMIL 40 MG TABLET Take 40 mg by mouth three abigail* METHYLPREDNISOLONE 4 MG TABLE* Take 1 tablet by (more content not included)... [facility] 03-07-2020 Note HNO ID: [id number] Author: Maria Luisa Chaudhary PT ASSIST Service: ? Author Type: Seam Press Operator Type: Progress Notes Filed: 03/07/2020 11:03 AM Note Text: Episode Visit Count: 3 Therapist That Will Oversee The Plan Of Care: Katina Start of Care Date: 02/26/20 Plan of Care Certification Date: 02/26/20 Next Certification Due Date: 05/26/20 REHABILITATION AND SPORTS THERAPY PHYSICAL THERAPY TREATMENT NOTE ASSESSMENT: Aga Adan demonstrated good tolerance to the exercises in the clinic, reporting no increased discomfort. . He required MIN cues for technique correction with the HEP. The patient appeared to understand the additions and / or modifications to the HEP. Abbreviated session per patient request. The patient will continue to benefit from ongoing skilled physical therapy for progression towards established goals. PLAN FOR NEXT VISIT: progress with exercises as tolerated SUBJECTIVE: The patient notes compliance with the HEP . He feels the exercises are helping. Some soreness to start the session. Pain: N/A OBJECTIVE MEASURES WITH LEVEL OF FUNCTION: No objective measures taken this date. TREATMENT: Therapeutic Exercise: 2: H/L clams jimenez 5" x 20 3: bridge x 10 5" hold 4: LTR x 10 5: sahrmans #2 2x10 6: curl ups 2x10 7: rower 3 plates 2x10 8: straight arm pul downs 3x10 5 plates 9: paloff press 2pl 10 x 2 each 5" Skilled Intervention: Patient was educated in proper exercise technique and purpose for exercises. Skilled judgment was provided in selection of appropriate interventions. Correct performance of therapeutic exercises was facilitated with verbal cuing. Patient education as noted. Billing: [place]: Therapeutic Exercise ([id number]): 1:1 time: 30 minutes (2 units: 23-37 mins) Total time / Length of visit: 30 minutes Maria Luisa Chaudhary PTA [facility] 03-07-2020 Note HNO ID: [id number] Author: [employer] Service: ? Author Type: Wall Washer Type: Progress Notes Filed: 03/28/2020 4:12 PM Note Text: REVIEW OF SYSTEMS: GENERAL: Well developed, well nourished. No acute distress PAIN: Negative for pain, history of chronic pain or current treatment for chronic pain conditions CARDIOVASCULAR: Negative for chest pain, leg swelling and palpations. MSK: joint pain yes and back pain yes SKIN: Negative for lesions, rash, itching, metal sensitivity NEURO: Negative for seizure, trauma, numbness/tingling of extremities./yesbil foot and peter foot ENDOCRINE: Diabetes Type 2 yes HEMATOLOGY: Negative for excessive bleeding, clots, bleeding disorders. [facility] 03-04-2020 Note HNO ID: [id number] Author: Joseph Mooney Service: ? Author Type: Physician Type: Progress Notes Filed: 03/04/2020 1:14 PM Note Text: HPI: Aga Adan is a 54 year old male who presents today follow-up of low back pain and MRI results. MRI was because of such severe back pain that would shoot into the left hip and leg combined with weakness issues. He was struggling to do his ADLs. Also dealing with a pelvis pain issue from a fall 10 months ago and may have had a fracture. S/P left GIANNA after developed necrosis. Still dealing with foot and ankle issues leading to multiple levels of dysfunction (Still in right walker boot). MRI shows: 1. ?No high-grade spinal canal stenosis. ?Mild foraminal stenosis as described. 2. ?Postsurgical changes of L5 laminectomy and partial resection of the L4 spinous process. PAST MEDICAL HISTORY Diagnosis Date - Acquired valgus deformity of foot, right - Anemia - Diabetes (HCC) - GERD (gastroesophageal reflux disease) - HTN (hypertension) - Hyperlipidemia - Myocardial infarct (HCC) 2006 - Pancreatic cyst 06/08/2019 - Pancreatitis - Post-traumatic arthritis of ankle, right - Shingles 10/28/2018 PAST SURGICAL HISTORY Procedure Laterality Date - CHOLECYSTECTOMY 2016 - COLONOSCOPY 07/15/2017 external grade 1 hemmorhoids - EGD 08/03/2017 bile gastric fluid, neg H pylori - HEART CATHETERIZATION 2016 - HIP SURGERY HX Left 05/2016 GIANNA - KNEE SURGERY HX Right 1983 - PANCREAS 06/08/2019 - PAST SURGICAL HISTORY OF 06/2018 BACK - PAST SURGICAL HISTORY OF Right 12/07/2018 R Ankle - SHOULDER SURGERY HX Bilateral 2009 RCR Social History Tobacco Use - Smoking status: Former Smoker Types: Cigars - Smokeless tobacco: Current User Types: Chew - Tobacco comment: 3 cigars/week Substance Use Topics - Alcohol use: Yes Comment: daily 3 beers - Drug use: No Current Outpatient Medications Medication Sig - docusate sodium (COLACE ORAL) Take by mouth. - predniSONE (DELTASONE) 10 mg tablet Take 10 mg by mouth once daily. 11 days - valacyclovir HCl (VALTREX ORAL) Take by mouth. - gabapentin (NEURONTIN) 300 mg capsule TAKE 1 CAPSULE BY MOUTH AT 3PM AND 1 CAPSULE BY MOUTH AT BEDTIME - denosumab (PROLIA) 60 mg/mL Inject 1 mL subcutaneously once every 6 months. - metformin HCl (METFORMIN ORAL) Take 1,000 mg by mouth twice daily. - aspirin, enteric coated (ASPIRIN, ENTERIC COATED) 81 mg EC tablet Take 1 tablet by mouth twice daily for 14 days. - gabapentin (NEURONTIN) 300 mg capsule Take 1 capsule by mouth daily at bedtime for 30 days. - B Complex Vitamins capsule Take 1 capsule by mouth once daily. - Multivitamin capsule Take 1 capsule by mouth once daily. - Ascorbic Acid (VITAMIN C) 1,000 mg tablet Take 1,000 mg by mouth once daily. Takes 2 tablets daily - Joan, Zingiber officinalis, (JOAN EXTRACT) 250 mg cap Take by mouth. 2 pills daily - buPROPion XL (WELLBUTRIN XL) 150 mg 24 hr tablet once daily. - fluticasone (FLONASE) 50 mcg/actuation nasal spray 2 Sprays once daily. - QUEtiapine (SEROQUEL) 50 mg tablet daily at bedtime. 2 pills at bedtime - atenolol (TENORMIN) 50 mg tablet once daily. - QVAR 40 mcg/actuation inhaler 2 Puffs as needed. - Omeprazole 40 mg capsule Take 40 mg by mouth once daily. - zoledronic acid (RECLAST) 5 mg/100 mL pgbk PREMIX piggyback Inject 100 mL intravenously one time only for 1 dose. Once only for 1 time - verapamil (CALAN, ISOPTIN) 40 mg tablet Take 40 mg by mouth three times daily. - methylPREDNISolone (MEDROL, TOYA,) 4 mg Dose-Pack Take 1 tablet by mouth as directed. As directed on package - VIIBRYD 10 mg daily with breakfast. - hydrocortisone (ANUSOL-HC) 2.5 % rectal cream 1 Applicator by RECTAL route twice daily. (Patient taking differently: 1 Applicator by RECTAL route as needed. ) - ondansetron (ZOFRAN) 4 mg tablet every 8 hours as needed. - gemfibrozil (LOPID) 600 mg tablet twice daily. No current facility-administered medications for this visit. ALLERGIES No Known Allergies REVIEW OF SYSTEMS: GENERAL: Well developed, well nourished. No acute distress PAIN: Pain lower back CARDIOVASCULAR: Negative for chest pain, leg swelling and palpations. MSK: joint pain yes SKIN: Negative for lesions, rash, itching, metal sensitivity NEURO: Negative for seizure, trauma, numbness/tingling of extremities. ENDOCRINE: Negative for Diabetes Type 1 and Type 2 HEMATOLOGY: asp 81mg Resp 18 Ht 5' 7" (1.70m) Wt 200 lb (90.7kg) BMI 31.32 kg/(m2). EXAM: Focal exam of Left hip reveals tenderness on greater trochanter. Pain with hip flexion and abduction. Pain with gluteal stretching. Negative leg roll and hip scour testing. Negative Straight Leg Raise. Normal sensation, reflexes, and pulses Large Joint Arthro/Inj: L greater trochanteric bursa The risks, benefits and alternatives of the procedure were reviewed with the patient/surrogate, who agreed to pr (more content not included)... [facility] 02-29-2020 Note HNO ID: [id number] Author: Della (Pt) RENETTA Hernandez Service: ? Author Type: Physical Therapist Type: Progress Notes Filed: 02/29/2020 11:55 AM Note Text: Episode Visit Count: 2 Therapist That Will Oversee The Plan Of Care: Katina Start of Care Date: 02/26/20 Plan of Care Certification Date: 02/26/20 Next Certification Due Date: 05/26/20 REHABILITATION AND SPORTS THERAPY PHYSICAL THERAPY TREATMENT NOTE ASSESSMENT: Aga Adan demonstrated good recall of HEP. Challenged with curl up exercise, fatigued quickly. The patient will continue to benefit from ongoing skilled physical therapy for core strengthening. PLAN FOR NEXT VISIT: progress with exercises as tolerated SUBJECTIVE: Overall achy. Low back and upper back. (B) hands have been numb lately too. The [place] Palsy he has is causing him issues as well. Pain: OBJECTIVE MEASURES WITH LEVEL OF FUNCTION: TREATMENT: Therapeutic Exercise: 2: supine clams green x 10 3: bridge x 10 4: LTR x 10 5: sahrmans #2 2x10 6: curl ups 2x10 7: rower 2 plates 2x10 8: straight arm pul downs 2x10 5 plates 9: paloff press plum 10x3" 10: discussed bells palsy and that it usually clears up on its own in 6 months. Ganve smiling, squinting, exercises to do at home to see if they help. Discussed that could hui at speech therapy for treatment if he wants Skilled Intervention: Patient was educated in proper exercise technique and purpose for exercises. Reviewed and educated patient on additions/changes for home exercise program as above (*) Skilled judgment was provided in selection of appropriate interventions. Provided written instruction for home exercise program to facilitate proper performance and compliance. Billing: [place]: Therapeutic Exercise ([id number]): 1:1 time: 40 minutes (3 units: 38-52 mins) Total time / Length of visit: 40 minutes Della Hernandez PT [facility] 02-26-2020 Note HNO ID: [id number] Author: Della (Pt) RENETTA Hernandez Service: ? Author Type: Physical Therapist Type: Progress Notes Filed: 02/26/2020 10:42 AM Note Text: Episode Visit Count: 1 Therapist That Will Oversee The Plan Of Care: Katina Start of Care Date: 02/26/20 Plan of Care Certification Date: 02/26/20 Next Certification Due Date: 05/26/20 Patient Identified by Name and Date of : Yes REHABILITATION AND SPORTS THERAPY PHYSICAL THERAPY EVALUATION PLAN OF CARE: Assessment: Aga Adan presents with the chief complaint of back pain that radiates into (B) hips. He presents with impairments of decreased strength and decreased flexibility. He may benefit from skilled therapy services to improve core strength and the ability to function with decreased pain. Prognosis: Fair Fair due to: clinical presentation;multiple co- morbidities;chronic nature of impairments Goals for Episode of Care: created on 02/26/20 through 04/26/20 [place] in home exercise program. Patient will decrease pain rating by 2 points to meet minimal clinical important difference for numeric pain rating scale. Patient will demonstrate increase in hips and core by one full MMT grade Perform standing activities with decreased report of symptoms/pain in 4-6 weeks. 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 The above goals and plan of care were discussed and agreed upon by patient/family. SUBJECTIVE: Aga Adan is a 54 year old male seen today for back pain that radiates down into the hips. Had a laminectomy in 2017. Also has a (L) GIANNA in 2017. 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 Been wearing a walking boot since last year. 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 5 points is clinically meaningfully difference Percentiles provide an indication of how the patient's score ranks in relation to the general population. Higher percentile rankings indicate better function/quality of life. 50th percentile is the average of the general population and indicates half of respondents had a worse score. T-scores: mean of general population = 50. 5 points is clinically meaningfully difference Percentiles provide an indication of how the patient's score ranks in relation to the general population. Higher percentile rankings indicate better function/quality of life. 50th percentile is the average of the general population and indicates half of respondents had a worse score. OBJECTIVE MEASURES WITH LEVEL OF FUNCTION: Posture / Alignment Posture: Forward head;Rounded shoulders;Decreased lumbar lordosis Lumbar Spine AROM Lumbar Flexion: Minimal limitation Lumbar Extension: Minimal limitation Lumbar R Side [place]: Minimal limitation Lumbar L Side [place]: Normal LE Flexibility Flexibility: Hamstring Flexibility;Hip Flexor Flexibility;Piriformis Flexibility R Hamstring Flexibility: tight L Hamstring Flexibility: tight R Hip Flexor Flexibility: tight L Hip Flexor Flexibility: tight R Piriformis Flexibility: tight L Piriformis Flexibility: tight LE Strength R Hip Extension: 4+/5 R Hip Flexion (L2): 4+/5 R Hip ABduction: 4+/5 R Knee Extension (L3): 5/5 R Knee Flexion: 5/5 L Hip Extension: 4-/5 L Hip Flexion (L2): 4/5 L Hip ABduction: 4-/5 L Knee Extension (L3): 5/5 L Knee Flexion: 5/5 L Ankle Dorsiflexion (L4): 5/5 L Ankle Plantar Flexion: 5/5 Special Tests - Hip and Spine Hip and Spine Special Tests: SLR Test;Slump Test SLR Test: Right Negative;Left Negative Slump Test: Right Negative;Left Negative Education: Education Learning Preferences: Demonstration;Explanation;Perform ance;Printed Materials Barriers: None Learning/educational needs: Procedure / Surgery;Home exercise program;Plan of Care Education Provided: Yes, see treatment interventions for education provided Education Provided To: Patient Education Mode/Type: Demonstration;Explanation/Discuss ion;Literature/Printed Materials;Performance Response to Education/Teach Back: States/Identifies;Return Demonstration TREATMENT: Evaluation Evaluation Therapeutic Exercise: 1: *posterior pelvic tilt x 10 2: *supine clams green x 10 3: (more content not included)... [facility] 02-12-2020 Note HNO ID: [id number] Author: Joseph Mooney Service: ? Author Type: Physician Type: Progress Notes Filed: 02/14/2020 1:50 PM Note Text: HPI: Aga Adan is a 54 year old male who presents today with back and left hip issues. Can't stand for more than a few minutes without intense pain in back and weakness in legs. Intense pain and struggles to do any ADL's. Many orthopedic issues in play currently leading to terrible overall dysfunction but his biggest concern is the back pain and leg weakness. S/P left hip GIANNA in 2018. Lumbar laminectomy in 06/[address] Zamarripa. Fall in 04/2019 with pelvis fracture and struggeled ever since. 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 PAST MEDICAL HISTORY Diagnosis Date - Acquired valgus deformity of foot, right - Anemia - Diabetes (HCC) - GERD (gastroesophageal reflux disease) - HTN (hypertension) - Hyperlipidemia - Myocardial infarct (HCC) 2006 - Pancreatic cyst 06/08/2019 - Pancreatitis - Post-traumatic arthritis of ankle, right - Shingles 10/28/2018 PAST SURGICAL HISTORY Procedure Laterality Date - CHOLECYSTECTOMY 2016 - COLONOSCOPY 07/15/2017 external grade 1 hemmorhoids - EGD 08/03/2017 bile gastric fluid, neg H pylori - HEART CATHETERIZATION 2016 - HIP SURGERY HX Left 05/2016 GIANNA - KNEE SURGERY HX Right 1984 - PANCREAS 06/08/2019 - PAST SURGICAL HISTORY OF 06/2018 BACK - PAST SURGICAL HISTORY OF Right 12/07/2018 R Ankle - SHOULDER SURGERY HX Bilateral 2009 [facility] Social History Tobacco Use - Smoking status: Former Smoker Types: Cigars - Smokeless tobacco: Current User Types: Chew - Tobacco comment: 3 cigars/week Substance Use Topics - Alcohol use: Yes Comment: daily 3 beers - Drug use: No Current Outpatient Medications Medication Sig - gabapentin (NEURONTIN) 300 mg capsule TAKE 1 CAPSULE BY MOUTH AT 3PM AND 1 CAPSULE BY MOUTH AT BEDTIME - denosumab (PROLIA) 60 mg/mL Inject 1 mL subcutaneously once every 6 months. - metformin HCl (METFORMIN ORAL) Take 1,000 mg by mouth twice daily. - aspirin, enteric coated (ASPIRIN, ENTERIC COATED) 81 mg EC tablet Take 1 tablet by mouth twice daily for 14 days. - gabapentin (NEURONTIN) 300 mg capsule Take 1 capsule by mouth daily at bedtime for 30 days. - B Complex Vitamins capsule Take 1 capsule by mouth once daily. - Multivitamin capsule Take 1 capsule by mouth once daily. - Ascorbic Acid (VITAMIN C) 1,000 mg tablet Take 1,000 mg by mouth once daily. Takes 2 tablets daily - Joan, Zingiber officinalis, (JOAN EXTRACT) 250 mg cap Take by mouth. 2 pills daily - buPROPion XL (WELLBUTRIN XL) 150 mg 24 hr tablet once daily. - fluticasone (FLONASE) 50 mcg/actuation nasal spray 2 Sprays once daily. - atenolol (TENORMIN) 50 mg tablet once daily. - QVAR 40 mcg/actuation inhaler 2 Puffs as needed. - Omeprazole 40 mg capsule Take 40 mg by mouth once daily. - zoledronic acid (RECLAST) 5 mg/100 mL pgbk PREMIX piggyback Inject 100 mL intravenously one time only for 1 dose. Once only for 1 time - verapamil (CALAN, ISOPTIN) 40 mg tablet Take 40 mg by mouth three times daily. - methylPREDNISolone (MEDROL, TOYA,) 4 mg Dose-Pack Take 1 tablet by mouth as directed. As directed on package - VIIBRYD 10 mg daily with breakfast. - hydrocortisone (ANUSOL-HC) 2.5 % rectal cream 1 Applicator by RECTAL route twice daily. (Patient taking differently: 1 Applicator by RECTAL route as needed. ) - QUEtiapine (SEROQUEL) 50 mg tablet daily at bedtime. 2 pills at bedtime - ondansetron (ZOFRAN) 4 mg tablet every 8 hours as needed. - gemfibrozil (LOPID) 600 mg tablet twice daily. No current facility-administered medications for this visit. ALLERGIES No Known Allergies REVIEW OF SYSTEMS: GENERAL: Well developed, well nourished. No acute distress PAIN: Pain lt hip CARDIOVASCULAR: Negative for chest pain, leg swelling and palpations. MSK: joint pain yes and back pain yes SKIN: Negative for lesions, rash, itching, metal sensitivity NEURO: Numbness/tingling of extremties ENDOCRINE: Diabetes Type 2 yes HEMATOLOGY: asp 81mg Resp 18 Ht 5' 7" (1.70m) Wt 200 lb (90.7kg) BMI 31.32 kg/(m2). EXAM: Examination of the lumbar spine reveals tenderness of para spinal muscles at L5. Pain with straight leg raise of the Left leg. Pain with lumbar flexion and rotation. Weakness with testing of Bilateral leg quadriceps, hamstrings, and hip flexors. Stork testing negative. Sensation altered in left hamstring area. Reflexes weak in left and right patellar tendons. Normal pulses ASSESSMENT: (M54.42, G89.29) Chronic left-sided low back pain with left-sided sciatica (primary encounter diagnosis) (M48.062) Spinal stenosis of lumbar region with neurogenic claudication (R20.0) Bilateral hand numbness PLAN: I will see Aga back after MRI of lumbar spine. I have concerns for (more content not included)... [facility] Evaluation + Plan note Future Appointments Appointment Date:06/20/2021 08:40:00 AM Scheduled Provider:ALBA TENA DO Location:[facility] Appointment Type:PC OV Follow Up Future Scheduled TestsThyroid Stimulating Hormone 03/07/21A1C Hemoglobin 03/07/21Complete Blood Count 03/07/21Vitamin D Level 03/07/21 [facility] Evaluation + Plan note Future Appointments Appointment Date:10/09/2021 09:20:00 AM Scheduled Provider:ALBA TENA DO Location:[facility] Appointment Type:PC OV Future Scheduled TestsFerritin 09/05/21Iron Level 09/05/21Thyroid Stimulating Hormone 03/07/21Thyroid Stimulating Hormone 09/05/21A1C Hemoglobin 03/07/21A1C Hemoglobin 09/05/21Complete Blood Count 03/07/21Complete Blood Count 09/05/21Lipid Profile 09/05/21Vitamin D Level 03/07/21Vitamin D Level 09/05/21Complete Metabolic Panel 09/05/21XR Hand Minimum 3 Views Right 06/05/21 [facility] Evaluation + Plan note Future Appointments Appointment Date:10/09/2021 09:30:00 AM Scheduled Provider:ALBA TENA DO Location:[facility] Appointment Type:PC OV Future Scheduled TestsThyroid Stimulating Hormone 03/07/21A1C Hemoglobin 03/07/21Complete Blood Count 03/07/21Vitamin D Level 03/07/21XR Hand Minimum 3 Views Right 06/05/21 [facility] Evaluation + Plan note Future Appointments Appointment Date:01/02/2022 09:30:00 AM Scheduled Provider:ALBA TENA DO Location:[facility] Appointment Type:PC OV Future Scheduled TestsThyroid Stimulating Hormone 03/07/21A1C Hemoglobin 03/07/21Complete Blood Count 03/07/21Vitamin D Level 03/07/21XR Hand Minimum 3 Views Right 06/05/21 [facility] Evaluation + Plan note Future Appointments Appointment Date:04/09/2022 09:00:00 AM Scheduled Provider:ALBA TENA DO Location:[facility] Appointment Type:PC OV Follow Up Future Scheduled TestsProstate Specific Antigen 04/04/22A1C Hemoglobin 04/04/22Complete Blood Count 04/04/22Lipid Profile 04/04/22Complete Metabolic Panel 04/04/22XR Hand Minimum 3 Views Right 06/05/21 [facility] Evaluation + Plan note Future Appointments Appointment Date:04/09/2022 09:00:00 AM Scheduled Provider:ALBA TENA DO Location:[facility] Appointment Type:PC OV Follow Up Future Scheduled TestsXR Hand Minimum 3 Views Right 06/05/21 [facility] Evaluation + Plan note Future Appointments Appointment Date:10/29/2022 08:30:00 AM Scheduled Provider:ALBA TENA DO Location:[facility] Appointment Type:PC OV Future Scheduled TestsThyroid Stimulating Hormone 10/28/22A1C Hemoglobin 10/28/22Complete Blood Count 10/28/22Lipid Profile 10/28/22Vitamin D Level 10/28/22Complete Metabolic Panel 10/28/22 [facility] Evaluation + Plan note Future Appointments Appointment Date:11/05/2023 10:00:00 AM Scheduled Provider:ALBA TENA DO Location:[facility] Appointment Type:PC OV Future Scheduled TestsThyroid Stimulating Hormone 07/08/23Free T4 07/08/23A1C Hemoglobin 07/08/23Free T3 07/08/23 [facility] Evaluation + Plan note Future Appointments Appointment Date:11/05/2023 10:00:00 AM Scheduled Provider:ALBA TENA DO Location:[facility] Appointment Type:PC OV [facility] Evaluation + Plan note Future Appointments Appointment Date:11/16/2024 10:00:00 AM Scheduled Provider:ALBA TENA DO Location:[facility] Appointment Type:PC OV Future Scheduled TestsProstate Specific Antigen 08/18/24yroid Stimulating Hormone 08/18/24A1C Hemoglobin 05/13/24Complete Blood Count 08/18/24Lipid Profile 08/18/24Albumin/Creatinine Ratio, Random Urine 05/12/24Vitamin D Level 08/18/24Complete Metabolic Panel 08/18/24 [facility] Evaluation note Diagnosis Alcohol-induced acute pancreatitis without infection or necrosis- Primary Acute recurrent pancreatitis Acute pancreatitis documented in this encounter [facility] Work Phone: Evaluation noteThere may be information available, but it has not been provided by the sender.[facility] Work Phone: Evaluation noteNo assessment information available [facility] Work Phone: Hospital course Narrative No data available for this section [facility] Hospital Discharge instructions No data available for this section [facility] Instructions* Instruction Description Start Date Patient advised to follow-up with Primary Care Physician for BMI management. [facility] Work Phone: Progress note No data available for this section [facility] Reason for referral (narrative)No reason for referral information availableWOhio[facility] Work Phone: Hospital Course Note Send Summary: Discharge Summ joya Providers: Provider RoleProvider Name ReferringCorrect Info, Needed PrimaryFree, Text Entry Note Recipients: Dr. Peyman Martinez [phone] (phone) Correct Info, Needed, Free, Text Entry, Discharge: Summary: Admission Date: .16-Jun-2019 21:48:00 Discharge Date: 19-Jun-2019 Attending Physician at Discharge: Orin Cunha Admission Reason: Pancreatic lesion(1) Final Discharge Diagnoses: Pancreatitis Procedures: aolano Procedure Date: 06/19/2019 8:06 AM Date of : 1965 Admit Type: Inpatient Site: [place] Procedure Room 1 Ethnicity: Unknown Race: Unknown Attending MD: Desmond Silva Jun 19, 2019 Condition at Discharge: Satisfactory Disposition at Discharge: .Home Vital Signs: T PRBPSpO2 [id number]% Date/Time06/19 6: 6: 6: 6: 6:22 Range(36.7C - 37C ) (63 - 73 ) (16 - 18 ) (144 - 160 )/ (82 - 85 ) (97% - 100% ) Highest temp of 37 C was recorded at 06/19 6:22 P (more content not included)... Discharge Instructions * Discharge Instr - Activity* Odessa Curran RN - 03/09/2019 4:45 PM EDT As tolerated * Discharge Instr - Diet* Odessa Curran RN - 03/09/2019 4:44 PM EDT ? Good nutrition is important when healing from an illness, injury, or surgery. Follow any nutrition recommendations given to you during your hospital stay. ? If you were given an oral nutrition supplement while in the hospital, continue to take this supplement at home. You can take it with meals, in-between meals, and/or before bedtime. These supplements can be purchased at most local grocery stores, pharmacies, and chain [employer]-stores. ? If you have any questions about your diet or nutrition, call the hospital and ask for the dietitian. General * Attachments The following attachments cannot be sent through Care Everywhere. * Headache (Malaysian) documented in this encounter* Instructions* José Miguel Sr MD - 02/20/[address] Urena regarding iron transfusions. Wear eye patch and use artifical tears. Take other medications as directed. * Attachments The following attachments cannot be sent through Care Everywhere. * Iron-Rich Diet (Malaysian) * Blood Transfusions: General Info (Malaysian) * Iron Supplements: General Info (Malaysian) * Anemia: Iron Deficiency (Malaysian) documented in this encounter* Discharge Instr - SHANICE* Harry Whelan RN - 06/16/2019 6:21 PM EST Continuity of Care Form Patient Name: Aga Adan : 1965 Admit date: 06/12/2019 Discharge date: Code Status Order: Full Code Advance Directives: Advance Care Flowsheet Documentation Date/Time Healthcare Directive Type of Healthcare Directive Copy in Chart Healthcare Agent Appointed Healthcare Agent's Name Healthcare Agent's Phone Number 06/12/19 [phone] No, patient does not have an advance directive for healthcare treatment -- -- -- -- -- Admitting Physician: Sharri Serrano DO PCP: Alba Tena DO Discharging Nurse: Discharging Hospital Unit/Room#: 1463/1463A Discharging Unit Phone Number: Emergency Contact: Extended Emergency Contact Information Primary Emergency Contact: Blanquita Adan [facility] Relation: Parent Past Surgical History: Past Surgical History: Procedure Laterality Date ANKLE SURGERY CHOLECYSTECTOMY JOINT REPLACEMENT Left hip KNEE SURGERY SHOULDER SURGERY r/l Immunization History: There is no immunization history on file for this patient. Active Problems: Patient Active Problem List Diagnosis Code Hyperlipidemia E78.5 Hypertension I10 Abnormal nuclear stress test R94.39 ME (myocardial infarction) (HCC) I21.9 Calculus of gallbladder with chronic cholecystitis without obstruction K80.10 Acute pancreatitis K85.90 Rectal bleeding K62.5 Elevated liver function tests R94.5 Alcohol-induced acute pancreatitis K85.20 Type 2 diabetes mellitus (HCC) E11.9 Acute pancreatitis due to calculus of common bile duct K85.10 Iron deficiency anemia due to chronic blood loss D50.0 Malabsorption of iron K90.9 Headache R51 Occipital headache R51 Pancreatic lesion K86.9 Occipital neuralgia of right side M54.81 Pancreatitis, recurrent K85.90 Transaminitis R74.0 Isolation/Infection: Isolation No Isolation Patient Infection Status None to display Nurse Assessment: Last Vital Signs: BP 138/80 Pulse 65 Temp 97.7 F (36.5 C) (Temporal) Resp 16 Ht 5' 7" (1.702 m) Wt 185 lb (83.9 kg) SpO2 98% BMI 28.98 kg/m Last documented pain score (0-10 scale): Pain Level: 8 Last Weight: Wt Readings from Last 1 Encounters: 06/12/19 185 lb (83.9 kg) Mental Status: {IP PT MENTAL STATUS:} IV Access: { SHANICE IV ACCESS:040957335} Nursing Mobility/ADLs: Walking {CHP DME ADLs:207051047} Transfer {CHP DME ADLs:287013273} Bathing {CHP DME ADLs:008122346} Dressing {CHP DME ADLs:405389295} Toileting {CHP DME ADLs:020457446} Feeding {CHP DME ADLs:753732032} [employer] Director {CHP DME ADLs:151568112} Med Delivery { SHANICE MED Delivery:750829954} Wound Care Documentation and Therapy: Incision 12/24/16 Abdomen (Active) Number of days: 904 Elimination: Continence: Bowel: {YES / NO:} Bladder: {YES / NO:} Urinary Catheter: {Urinary Catheter:757646688} Colostomy/Ileostomy/Ileal Conduit: {YES / NO:} Date of Last BM: Intake/Output Summary (Last 24 hours) at 06/16/2019 1754 Last data filed at 06/16/2019 0503 Gross per 24 hour Intake Output 1550 ml Net -1550 ml I/O last 3 completed shifts: In: - Out: 1550 [Urine:1550] Safety Concerns: { SHANICE Safety Concerns:259027745} Impairments/Disabilities: { SHANICE Impairments/Disabilities:335139708} Nutrition Therapy: Current Nutrition Therapy: { SHANICE Diet List:420286351} Routes of Feeding: {CHP DME Other Feedings:183780449} Liquids: {Driller Multiple Spindle liquid thickness:37816} Daily Fluid Restriction: {CHP DME Yes amt example:625172396} Last Modified Barium Swallow with Video (Video Swallowing Test): {Done Not Done Date:} Treatments at the Time of Hospital Discharge: Respiratory Treatments: Oxygen Therapy: {Therapy; copd oxygen:38020} Ventilator: {[facility] Vent List:126329651} Rehab Therapies: {THERAPEUTIC INTERVENTION:1132053449} Weight Bearing Status/Restrictions: {[facility] Weight Bearin} Other Medical Equipment (for information only, NOT a DME order): {EQUIPMENT:352063299} Other Treatments: Patient's personal belongings (please select all that are sent with patient): {P DME Belongings:081645428} RN SIGNATURE: {Esignature:079516399} CASE MANAGEMENT/SOCIAL WORK SECTION Inpatient Status Date: Readmission Risk Assessment Score: Readmission Risk Risk of Unplanned Readmission: 20 Discharging to Facility/ Agency Name: Address: Phone: Fax: Dialysis Facility (if applicable) Name: Address: Dialysis Schedule: Phone: Fax: Fiscal Technician/Chuck Boner signature: {Esignature:365575258} PHYSICIAN SECTION Prognosis: {Prognosis:0935190171} Condition at Discharge: { Patient Condition:761427572} Rehab Potential (if transferring to Rehab): {Prognosis:7172649882} Recommended Labs or Other Treatments After Discharge: Physician Certification: I certify the above information and transfer of Aga Adan is necessary for the continuing treatment of the diagnosis listed and that he requires {Admit to Appropriate Level of Care:77066} for {GREATER/LESS:742170925} 30 days. Update Admission H&P: {CHP DME Changes in HandP:061297500} PHYSICIAN SIGNATURE: {Esignature:526932150} documented in this encounter History of Present Illness * Evette Perry MD - 03/09/2019 4:40 PM EDT Patient seen and examined, anticipate D/C today if CTA of the head and neck is normal, full report to follow. documented in this encounter* Rubio Frey RN - 06/16/2019 8:39 PM EST [facility] arrives for pickup and transfer. * More Robles RD, LD - 06/15/2019 2:36 PM EST Nutrition Assessment Type and Reason for Visit: Initial(DT referral - NPO x3 days) Nutrition Recommendations: 1. Advance diet as tolerated to goal of Low Fat diet to promote diet tolerance. Encourage protein intake 2. Per MNT protocol, will order Ensure HP (160kcal, 16g protein, 2g fat, 8oz) to be provided ad gilson 3. Pt declines low fat diet education 4. Consider MVI, vitamin C to support wound healing 5. RD will continue to monitor and follow up weekly Nutrition Assessment: Pt transferred from [place] with pancreatitis. MRI showed pancreatitic lesion. PMH of CAD, EtOH abuse, HLD, HTN, ME, recurring pancreatitis. Per chart pt drinks 1-2 beers daily.Per chart: 'Hepatobiliary surgical team evaluated patient and recommended ERCP w/ stent placement and brushings with consideration for EUS given increase in size of lesions. At this time GI service would recommend transfer to or [facility] for evaluation of biliary obstruction with ERCP w/ stent placement as well as EUS w/ FNA for enlarging pancreatic lesion.' Pt is ordered a full liquid diet and states he has had nothing to eat today, reports he had cream of wheat yesterday, unable to answer if heis nauseated, reports continued pain which he states is partly becasue of not eating. Pt became irritated during interview and expressed dissatisfaction with FLD menu options, and with care in general, reports he feels "ignored." RN/staff are already aware. RN reports pt is refusing to order. Pt was agreeable to RD ordering broth only, refuses all other options, does not want ONS. Pt declines lowfat diet education as well, states "I'll never be that nallely." RD informed pt he will be ordered Ensure ad gilson and can order it at anytime if he changes his mind. RD provided fresh water and coffee perpt request and placed order for broth. Malnutrition Assessment: Malnutrition Status: At risk for malnutrition Context: Acute illness or injury Nutrition Risk Level: High Nutrient Needs: Estimated Daily Total Kcal: 2824-4749 Estimated Daily Protein (g): 84-91 Estimated Daily Total Fluid (ml/day): per MD Nutrition Diagnosis: Problem: Inadequate oral intake Etiology: related to Alteration in GI function(pancreatitis, abd pain) ? Signs and symptoms: as evidenced by Diet history of poor intake Objective Information: Nutrition-Focused Physical Findings: No edema. Active bowel sounds. Kenyon=19. Labs and meds reviewed. Wound Type: (non-healing RLE wound, per chart notes, observed with cast to RLE) Current Nutrition Therapies: Oral Diet Orders: Full Liquid Oral Diet intake: Refusing to eat Oral Nutrition Supplement (ONS) Orders: None Anthropometric Measures: Ht: 5' 7" (170.2 cm) Current Body Wt: 186 lb (84.4 kg)(bedscale) Admission Body Wt: 185 lb (83.9 kg)(stated) Usual Body Wt: 180 lb (81.6 kg) [place] Body Wt: 154 lb (69.9 kg), % [place] Body 121% BMI Classification: BMI 25.0 - 29.9 Overweight Nutrition Interventions: Continue current diet, Start ONS Continued Inpatient Monitoring, Education not appropriate at this time, Education declined Nutrition Evaluation: Evaluation: Goals set Goals: Pt to tolerate diet advancement without abd pain or N/V Monitoring: Nutrition Progression, Meal Intake, Supplement Intake, Diet Tolerance, Skin Integrity, Wound Healing, I&O, Weight, Pertinent Labs, Mental Status/Confusion, Nausea or Vomiting, Patient/Family Education, Monitor Bowel Function Contact Number: pager [phone] * Jacob Gross MD - 06/15/2019 2:33 PM EST PROGRESS NOTE SUBJECTIVE: Interval history: not taking morning meds, because he is in pain, no emesis. Frustrated of IV pump beeping all the time, updated to mother at bedside VITALS: BP (!) 157/89 Pulse 68 Temp 98 F (36.7 C) (Temporal) Resp 16 Ht 5' 7" (1.702 m) Wt 185 lb(83.9 kg) SpO2 98% BMI 28.98 kg/m BLOOD PRESSURE RANGE: Systolic (24hrs), Av , Min:134 , Max:163 ; Diastolic (24hrs), Av, Min:70, Max:96 24HR INTAKE/OUTPUT: Intake/Output Summary (Last 24 hours) at 06/15/2019 1433 Last data filed at 06/15/2019 0938 Gross per 24 hour Intake Output 1450 ml Net -1450 ml PHYSICAL EXAM: General appearance: No apparent distress, appears stated age and cooperative. AOx3 HEENT: Normal cephalic, atraumatic without obvious deformity. PERRL. Extra ocular muscles intact. Conjunctivae/corneas clear. Neck: Supple, No JVD. Trachea midline. No lymphadenopathy. Respiratory: Normal respiratory effort. Clear to auscultation, bilaterally without Rales/Wheezes/Rhonchi. Cardiovascular: Regular rate and rhythm with normal S1/S2 without murmurs, rubs or gallops. Abdomen: Soft, upper and mid abdomen tender, non-distended with normal bowel sounds. No rebound or guarding. Musculoskeletal: RLE splint Skin: No rashes or lesions. Neurologic: No focal sensory/motor deficits. Cranial nerves: II-XII intact LABS: Recent Labs 06/13/191706/14/191306/15/19 0424 WBC 4.3 4.0 4.3 HGB 9.8* 9.4* 10.3* HCT 28.5* 28.1* 30.8* MCV 88.0 88.9 89.2 PLT 247 279 312 Recent Labs 06/13/191706/14/194 06/15/19 0424 NA 137 135 140 K 4.0 3.4* 3.7 CL 104 102 106 CO2 22 24 22 GLUCOSE 124* 161* 116* BUN 6* 5* 4* CREATININE 0.69 0.62 0.69 Ionized Calcium: No results found for: IONCA Magnesium: Lab Results Component Value Date MG 1.9 04/25/2018 Phosphorus: Lab Results Component Value Date PHOS 3.9 02/03/2019 U/A: Lab Results Component Value Date COLORU YELLOW 05/20/2017 LEUKOCYTESUR NEG 05/20/2017 UROBILINOGEN 0.2 05/20/2017 BILIRUBINUR NEG 05/20/2017 GLUCOSEU NEG 05/20/2017 Urine Culture: No results for input(s): LABURIN in the last 72 hours. Blood Culture: No results found for: BC IMAGINGS: MRI ABDOMEN WO CONTRAST Final Result Scheduled Meds: gemfibrozil 600 mg Oral BID AC atenolol 50 mg Oral Daily verapamil 40 mg Oral BID fluticasone 1 spray Each Nostril Daily vitamin B-12 1,000 mcg Oral Daily calcium elemental 1 tablet Oral Daily chlorhexidine 15 mL Mouth/Throat BID pantoprazole 40 mg Oral QAM AC QUEtiapine 100 mg Oral Nightly cetirizine 5 mg Oral Daily buPROPion 150 mg Oral Daily fluticasone 1 puff Inhalation BID aspirin 81 mg Oral Daily Vitamin D 5,000 Units Oral Weekly insulin lispro 0-6 Units Subcutaneous TID WC insulin lispro 0-3 Units Subcutaneous Nightly sodium chloride flush 10 mL Intravenous 2 times per day enoxaparin 40 mg Subcutaneous Daily sodium chloride flush 10 mL Intravenous 2 times per day folic acid, thiamine, multi-vitamin with vitamin K infusion Intravenous Daily Continuous Infusions: dextrose lactated ringers 150 mL/hr at 06/15/19 0744 PRN Meds:ALPRAZolam, HYDROmorphone OR HYDROmorphone, sodium chloride, glucose, dextrose, glucagon (rDNA), dextrose, sodium chloride flush, magnesium hydroxide, ondansetron, sodium chloride flush DIET FULL LIQUID; Advance Directive: Full Code ASSESSMENT AND PLAN Acute pancreatitis transaminitis -triglyceride 187 on gemfibrozil, follow LFT -MRCP shows enlarging complex cystic lesion in the uncinate process of pancreas that causing mass effect on biliary tract -GI and surgery both recommends transferring to , started yesterday, Dr Horn accepted pt, awaiting bed availability. -pain control, increase dilaudid frequency -continue FLD Hx RLE fracture -continue splint Alcohol use -folic acid and thiamine Hx CAD ME -continue home asa and atenolol DM on metformin at home -hold metformin, use SSI for BS correction Diagnosis Date Abnormal nuclear stress test Acid reflux Anxiety CAD (coronary artery disease) medically treated Calculus of gallbladder with chronic cholecystitis without obstruction SCHEDULED FOR THE SURGERY TODAY Depression ETOH abuse Hyperlipidemia Hypertension Insomnia ME (myocardial infarction) (HCC) 2006 Opioid dependence ([facility]) Pancreatitis Pancreatitis Sleep apnea Discharge planning: TBD Jacob Gross MD On 06/15/2019 at 2:33 PM * Octavia SaezMARLENY - 06/15/2019 2:00 PM EST Department of Internal Medicine Gastroenterology Attending Progress Note SUBJECTIVE: Patient is very frustrated this morning as he states he does not know why he has to wait to be transferred to another hospital. Per Dr. Gross pt has been accepted at and is awaiting bedplacement. Called by nursing staff to come speak with patient and he has been very hostile to nursing staff and refusing all medications this morning. He is also upset that we cannot advance his diet. He continues to report RUQ abdominal pain and epigastric abdominal pain with radiation to his back. Denies nausea or vomiting. States he continues to have loose bowel movements. States he is worriedabout the financial burden of this hospitalization as well. Medications Current Facility-Administered Medications: ALPRAZolam (XANAX) tablet 0.25 mg, 0.25 mg, Oral, BID PRN HYDROmorphone (DILAUDID) injection 0.5 mg, 0.5 mg, Intravenous, Q4H PRN OR HYDROmorphone (DILAUDID) injection 1 mg, 1 mg, Intravenous, Q4H PRN sodium chloride (OCEAN, BABY AYR) 0.65 % nasal spray 1 spray, 1 spray, Each Nostril, Q2H PRN gemfibrozil (LOPID) tablet 600 mg, 600 mg, Oral, BID AC atenolol (TENORMIN) tablet 50 mg, 50 mg, Oral, Daily verapamil (CALAN) tablet 40 mg, 40 mg, Oral, BID fluticasone (FLONASE) 50 MCG/ACT nasal spray 1 spray, 1 spray, Each Nostril, Daily vitamin B-12 (CYANOCOBALAMIN) tablet 1,000 mcg, 1,000 mcg, Oral, Daily calcium elemental (OSCAL) tablet 500 mg, 1 tablet, Oral, Daily chlorhexidine (PERIDEX) 0.12 % solution 15 mL, 15 mL, Mouth/Throat, BID pantoprazole (PROTONIX) tablet 40 mg, 40 mg, Oral, QAM AC QUEtiapine (SEROQUEL) tablet 100 mg, 100 mg, Oral, Nightly cetirizine (ZYRTEC) tablet 5 mg, 5 mg, Oral, Daily buPROPion (WELLBUTRIN SR) extended release tablet 150 mg, 150 mg, Oral, Daily fluticasone (FLOVENT HFA) 110 MCG/ACT inhaler 1 puff, 1 puff, Inhalation, BID aspirin chewable tablet 81 mg, 81 mg, Oral, Daily Vitamin D (CHOLECALCIFEROL) tablet 5,000 Units, 5,000 Units, Oral, Weekly insulin lispro (HUMALOG) injection vial 0-6 Units, 0-6 Units, Subcutaneous, TID WC insulin lispro (HUMALOG) injection vial 0-3 Units, 0-3 Units, Subcutaneous, Nightly glucose (GLUTOSE) 40 % oral gel 15 g, 15 g, Oral, PRN dextrose 50 % IV solution, 12.5 g, Intravenous, PRN glucagon (rDNA) injection 1 mg, 1 mg, Intramuscular, PRN dextrose 5 % solution, 100 mL/hr, Intravenous, PRN sodium chloride flush 0.9 % injection 10 mL, 10 mL, Intravenous, 2 times per day sodium chloride flush 0.9 % injection 10 mL, 10 mL, Intravenous, PRN magnesium hydroxide (MILK OF MAGNESIA) 400 MG/5ML suspension 30 mL, 30 mL, Oral, Daily PRN ondansetron (ZOFRAN) injection 4 mg, 4 mg, Intravenous, Q6H PRN enoxaparin (LOVENOX) injection 40 mg, 40 mg, Subcutaneous, Daily lactated ringers infusion, , Intravenous, Continuous sodium chloride flush 0.9 % injection 10 mL, 10 mL, Intravenous, 2 times per day sodium chloride flush 0.9 % injection 10 mL, 10 mL, Intravenous, PRN sodium chloride 0.9 % 1,000 mL with folic acid 1 mg, adult multi-vitamin with vitamin k 10 mL, thiamine 100 mg, , Intravenous, Daily OBJECTIVE VITALS: BP (!) 157/89 Pulse 68 Temp 98 F (36.7 C) (Temporal) Resp 16 Ht 5' 7" (1.702 m) Wt 185 lb (83.9 kg) SpO2 98% BMI 28.98 kg/m TEMPERATURE: Current - Temp: 98 F (36.7 C); Max - Temp Av.7 F (36.5 C) Min: 96.8 F (36 C) Max:98.7 F (37.1 C) RESPIRATIONS RANGE: Resp Av Min: 16 Max: 16 PULSE RANGE: Pulse Av.9 Min: 62 Max: 76 BLOOD PRESSURE RANGE: Systolic (24hrs), Av , Min:134 , Max:163 ; Diastolic (24hrs), Av, Min:70, Max:96 PULSE OXIMETRY RANGE: SpO2 Av.2 % Min: 97 % Max: 100 % 24HR INTAKE/OUTPUT: Intake/Output Summary (Last 24 hours) at 06/15/2019 1414 Last data filed at 06/15/2019 0938 Gross per 24 hour Intake Output 1450 ml Net -1450 ml GENERAL: NAD, resting comfortably in the room. No pain distress. Appears frustrated. HEENT: NCAT, PERRLA, EOMI, Scleral anicteric. Oropharhynx clear with no erythema or exudate. Neck supple, no cervical LAD or thyromegaly. CV: RRR, NL S1/S2, no murmurs. Distal pulses palpable and equal b/l. LUNGS: CTA b/l. Normal percussion and palpation. No W/R/R. ABD: + BS, soft, mild TTP in the epigastrium and RUQ abdomen and non-distended. No hepatosplenomegaly. No mass felt. No rebound or guarding. EXT: No C/C/E. No muscle atrophy. Skin: No skin lesion or breakdown. Lymph: No cervical or supraclavicular LAD. Musculoskeletal: Strength 5/5 in all exts. No joint tenderness or effusions in LEs. Neurologic: A&O x 3, CN II-XII grossly intact. DTR +2 symmetric in patella. Normal cerebellar fxn. Non-focal. Data Recent blood work, radiologic study and endoscopic study were reviewed with the patient. CBC: Recent Labs 06/13/19 0018 06/14/19 0014 06/15/19 0424 WBC 4.3 4.0 4.3 RBC 3.23* 3.16* 3.46* HGB 9.8* 9.4* 10.3* HCT 28.5* 28.1* 30.8* MCV 88.0 88.9 89.2 MCH 30.4 29.8 29.8 MCHC 34.5 33.6 33.4 RDW 14.8* 14.7* 15.3* PLT 247 279 312 MPV 7.1* 7.4 7.5 CMP: Recent Labs 06/13/19 0018 06/14/19 0014 06/15/19 0424 NA 137 135 140 K 4.0 3.4* 3.7 CL 104 102 106 CO2 22 24 22 BUN 6* 5* 4* CREATININE 0.69 0.62 0.69 GLUCOSE 124* 161* 116* CALCIUM 9.5 9.4 9.7 PROT 7.2 6.8 7.2 LABALBU 4.1 3.7 4.1 BILITOT 2.3* 2.2* 1.4* ALKPHOS 478* 492* 573* AST 471* 539* 236* ALT 676* 642* 547* LIPASE: Recent Labs 06/13/19 1418 06/14/19 0014 06/15/19 0424 LIPASE 540* 1,811* 1,585* PT/INR: Recent Labs 06/13/19 0018 INR 1.1 Hepatitis B Surface Ag NOT DETECTED Not-Detected NA Final 06/13/2019 2:18 PM [facility] Hep B Core Ab, IgM NOT DETECTED Not-Detected NA Final 06/13/2019 2:18 PM [facility] Hep A IgM NOT DETECTED Not-Detected NA Final 06/13/2019 2:18 PM [facility] Hepatitis C Ab NOT DETECTED MRCP 06/14/19 IMPRESSION: 1. Increase in size within the complex cystic lesion in the uncinate process of the pancreas. This again communicates with the remained pancreatic duct and could represent an IPMN but could also represent walled off necrosis related to prior pancreatitis. There is new biliary dilation and given this and the presence of hyperbilirubinemia, and these findings could be due to mass effect from this lesion; endoscopic evaluation should be strongly considered. 2. Pancreatic and peripancreatic edema suggesting pancreatitis. Mild mural thickening in the descending duodenum which may be due to adjacent inflammatory changes in the pancreas. 3. Mildly dilated main pancreatic duct may be related to chronic pancreatitis. 4. Hepatic steatosis. Report Dictated on --- Final --- Dictated: 06/14/2019 9:55 am Dictating Physician: MD BARBOSA NICHOLAS Signed Date and Time: 06/14/2019 10:14 am Signed by: MD BARBOSA NICHOLAS Transcribed Date and Time: 06/14/2019 10:09 ASSESSMENT AND PLAN Acute pancreatitis - lipase elevated >2200 at outside facility, pain improved Elevated LFTs - LFTs wnl during previous admission 02/03/19 Complex pancreatic cystic lesion in uncinate process of pancreas Daily ETOH use Hx of hypertriglyceridemia PLAN: - pt has been accepted at and plan for transfer to for evaluation of enlarging pancreatic cystic structure likely causing compression and obstructive process on biliary tree given new biliary ductal dilatation. Pt will likely need ERCP w/ stent placement as well as EUS (unable to perform EUS at this hospital) - patient very frustrated with the transfer process and awaiting transfer, provided reassurance andfurther explanation - would continue liquid diet at this time, risk of worsening pain, nausea/vomiting, and worsening obstructive process with further advancement of diet - patient may benefit from speaking with financial counselor as one of his main concerns is paying for his hospitalizations - trend LFTs, INR - continue supportive cares per primary team * Jacob Gross MD - 06/14/2019 12:02 PM EST PROGRESS NOTE SUBJECTIVE: Interval history: complains anxiety, nervous, pain not controlled. No nausea. No cp/sob. Updated tomother at bedside in detail VITALS: BP (!) 148/67 Pulse 68 Temp 98.2 F (36.8 C) (Temporal) Resp 16 Ht 5' 7" (1.702 m) Wt 185 lb (83.9 kg) SpO2 97% BMI 28.98 kg/m BLOOD PRESSURE RANGE: Systolic (24hrs), Av , Min:140 , Max:150 ; Diastolic (24hrs), Av, Min:67, Max:85 24HR INTAKE/OUTPUT: Intake/Output Summary (Last 24 hours) at 06/14/2019 1202 Last data filed at 06/14/2019 0556 Gross per 24 hour Intake Output 1750 ml Net -1750 ml PHYSICAL EXAM: General appearance: No apparent distress, appears stated age and cooperative. AOx3 HEENT: Normal cephalic, atraumatic without obvious deformity. PERRL. Extra ocular muscles intact. Conjunctivae/corneas clear. Neck: Supple, No JVD. Trachea midline. No lymphadenopathy. Respiratory: Normal respiratory effort. Clear to auscultation, bilaterally without Rales/Wheezes/Rhonchi. Cardiovascular: Regular rate and rhythm with normal S1/S2 without murmurs, rubs or gallops. Abdomen: Soft, upper and mid abdomen tender, non-distended with normal bowel sounds. No rebound or guarding. Musculoskeletal: RLE splint Skin: No rashes or lesions. Neurologic: No focal sensory/motor deficits. Cranial nerves: II-XII intact LABS: Recent Labs 06/13/198 06/14/1913 WBC 4.3 4.0 HGB 9.8* 9.4* HCT 28.5* 28.1* MCV 88.0 88.9 PLT 247 279 Recent Labs 06/13/198 06/14/1913 NA 137 135 K 4.0 3.4* CL 104 102 CO2 22 24 GLUCOSE 124* 161* BUN 6* 5* CREATININE 0.69 0.62 Ionized Calcium: No results found for: IONCA Magnesium: Lab Results Component Value Date MG 1.9 04/25/2018 Phosphorus: Lab Results Component Value Date PHOS 3.9 02/03/2019 U/A: Lab Results Component Value Date COLORU YELLOW 05/20/2017 LEUKOCYTESUR NEG 05/20/2017 UROBILINOGEN 0.2 05/20/2017 BILIRUBINUR NEG 05/20/2017 GLUCOSEU NEG 05/20/2017 Urine Culture: No results for input(s): LABURIN in the last 72 hours. Blood Culture: No results found for: BC IMAGINGS: MRI ABDOMEN WO CONTRAST Final Result Scheduled Meds: gemfibrozil 600 mg Oral BID AC atenolol 50 mg Oral Daily verapamil 40 mg Oral BID fluticasone 1 spray Each Nostril Daily vitamin B-12 1,000 mcg Oral Daily calcium elemental 1 tablet Oral Daily chlorhexidine 15 mL Mouth/Throat BID pantoprazole 40 mg Oral QAM AC QUEtiapine 100 mg Oral Nightly cetirizine 5 mg Oral Daily buPROPion 150 mg Oral Daily fluticasone 1 puff Inhalation BID aspirin 81 mg Oral Daily Vitamin D 5,000 Units Oral Weekly insulin lispro 0-6 Units Subcutaneous TID WC insulin lispro 0-3 Units Subcutaneous Nightly sodium chloride flush 10 mL Intravenous 2 times per day enoxaparin 40 mg Subcutaneous Daily sodium chloride flush 10 mL Intravenous 2 times per day folic acid, thiamine, multi-vitamin with vitamin K infusion Intravenous Daily Continuous Infusions: dextrose lactated ringers 150 mL/hr at 06/13/192016 PRN Meds:morphine OR morphine, sodium chloride, glucose, dextrose, glucagon (rDNA), dextrose, sodium chloride flush, magnesium hydroxide, ondansetron, sodium chloride flush Diet NPO, After Midnight Advance Directive: Full Code ASSESSMENT AND PLAN Acute pancreatitis transaminitis -triglyceride 187 on gemfibrozil, follow LFT -MRCP shows enlarging complex cystic lesion in the uncinate process of pancreas that causing mass effect on biliary tract -Gi follow, consulted surgery -acute hepatitis panel negative -NPO for surgery evaluation, continue IVF -pain control Hx RLE fracture -continue splint Alcohol use -folic acid and thiamine Hx CAD ME -continue home asa and atenolol DM on metformin at home -hold metformin, use SSI for BS correction Diagnosis Date Abnormal nuclear stress test Acid reflux Anxiety CAD (coronary artery disease) medically treated Calculus of gallbladder with chronic cholecystitis without obstruction SCHEDULED FOR THE SURGERY TODAY Depression ETOH abuse Hyperlipidemia Hypertension Insomnia ME (myocardial infarction) (HCC) 2007 Opioid dependence (HCC) Pancreatitis Pancreatitis Sleep apnea Discharge planning: KALEIGH Gross MD On 06/14/2019 at 12:02 PM * Deion Sommers MD - 06/14/2019 9:55 AM EST Department of Internal Medicine Gastroenterology Attending Progress Note SUBJECTIVE: Patient states he is feeling improved today. Back from MRCP this morning, awaiting results. States his abdomen feels "sore" all over which he thinks is d/t hunger pains. Denies nausea or vomiting. Had one semiformed BM yesterday, small amount of blood which he states is d/t hemorrhoids.Pt states he is hoping he can go home today. Medications Current Facility-Administered Medications: ALPRAZolam (XANAX) tablet 0.25 mg, 0.25 mg, Oral, BID PRN HYDROmorphone (DILAUDID) injection 0.5 mg, 0.5 mg, Intravenous, Q4H PRN OR HYDROmorphone (DILAUDID) injection 1 mg, 1 mg, Intravenous, Q4H PRN sodium chloride (OCEAN, BABY AYR) 0.65 % nasal spray 1 spray, 1 spray, Each Nostril, Q2H PRN gemfibrozil (LOPID) tablet 600 mg, 600 mg, Oral, BID AC atenolol (TENORMIN) tablet 50 mg, 50 mg, Oral, Daily verapamil (CALAN) tablet 40 mg, 40 mg, Oral, BID fluticasone (FLONASE) 50 MCG/ACT nasal spray 1 spray, 1 spray, Each Nostril, Daily vitamin B-12 (CYANOCOBALAMIN) tablet 1,000 mcg, 1,000 mcg, Oral, Daily calcium elemental (OSCAL) tablet 500 mg, 1 tablet, Oral, Daily chlorhexidine (PERIDEX) 0.12 % solution 15 mL, 15 mL, Mouth/Throat, BID pantoprazole (PROTONIX) tablet 40 mg, 40 mg, Oral, QAM AC QUEtiapine (SEROQUEL) tablet 100 mg, 100 mg, Oral, Nightly cetirizine (ZYRTEC) tablet 5 mg, 5 mg, Oral, Daily buPROPion (WELLBUTRIN SR) extended release tablet 150 mg, 150 mg, Oral, Daily fluticasone (FLOVENT HFA) 110 MCG/ACT inhaler 1 puff, 1 puff, Inhalation, BID aspirin chewable tablet 81 mg, 81 mg, Oral, Daily Vitamin D (CHOLECALCIFEROL) tablet 5,000 Units, 5,000 Units, Oral, Weekly insulin lispro (HUMALOG) injection vial 0-6 Units, 0-6 Units, Subcutaneous, TID WC insulin lispro (HUMALOG) injection vial 0-3 Units, 0-3 Units, Subcutaneous, Nightly glucose (GLUTOSE) 40 % oral gel 15 g, 15 g, Oral, PRN dextrose 50 % IV solution, 12.5 g, Intravenous, PRN glucagon (rDNA) injection 1 mg, 1 mg, Intramuscular, PRN dextrose 5 % solution, 100 mL/hr, Intravenous, PRN sodium chloride flush 0.9 % injection 10 mL, 10 mL, Intravenous, 2 times per day sodium chloride flush 0.9 % injection 10 mL, 10 mL, Intravenous, PRN magnesium hydroxide (MILK OF MAGNESIA) 400 MG/5ML suspension 30 mL, 30 mL, Oral, Daily PRN ondansetron (ZOFRAN) injection 4 mg, 4 mg, Intravenous, Q6H PRN enoxaparin (LOVENOX) injection 40 mg, 40 mg, Subcutaneous, Daily lactated ringers infusion, , Intravenous, Continuous sodium chloride flush 0.9 % injection 10 mL, 10 mL, Intravenous, 2 times per day sodium chloride flush 0.9 % injection 10 mL, 10 mL, Intravenous, PRN sodium chloride 0.9 % 1,000 mL with folic acid 1 mg, adult multi-vitamin with vitamin k 10 mL, thiamine 100 mg, , Intravenous, Daily OBJECTIVE VITALS: BP (!) 148/67 Pulse 68 Temp 98.2 F (36.8 C) (Temporal) Resp 16 Ht 5' 7" (1.702 m) Wt 185 lb (83.9 kg) SpO2 97% BMI 28.98 kg/m TEMPERATURE: Current - Temp: 98.2 F (36.8 C); Max - Temp Av.8 F (36.6 C) Min: 97 F (36.1 C) Max: 98.2 F (36.8 C) RESPIRATIONS RANGE: Resp Av.5 Min: 14 Max: 16 PULSE RANGE: Pulse Av Min: 67 Max: 81 BLOOD PRESSURE RANGE: Systolic (24hrs), Av , Min:140 , Max:150 ; Diastolic (24hrs), Av, Min:67, Max:85 PULSE OXIMETRY RANGE: SpO2 Av % Min: 97 % Max: 97 % 24HR INTAKE/OUTPUT: Intake/Output Summary (Last 24 hours) at 06/14/2019 1518 Last data filed at 06/14/2019 0556 Gross per 24 hour Intake Output 1750 ml Net -1750 ml GENERAL: Pleasant and NAD. HEENT: NCAT, PERRLA, EOMI, Scleral anicteric. Oropharhynx clear with no erythema or exudate. Neck supple, no cervical LAD or thyromegaly. CV: RRR, NL S1/S2, no murmurs. Distal pulses palpable and equal b/l. LUNGS: CTA b/l. Normal percussion and palpation. No W/R/R. ABD: + BS, soft, mild epigastric TTP and non-distended. No hepatosplenomegaly. No mass felt. No rebound or guarding. EXT: No C/C/E. No muscle atrophy. Skin: No skin lesion or breakdown. Lymph: No cervical or supraclavicular LAD. Musculoskeletal: Strength 5/5 in all exts. No joint tenderness or effusions in LEs. Neurologic: A&O x 3, CN II-XII grossly intact. DTR +2 symmetric in patella. Normal cerebellar fxn. Normal gait. Non-focal. Data Recent blood work, radiologic study and endoscopic study were reviewed with the patient. CBC: Recent Labs 06/13/191706/14/19 001 WBC 4.3 4.0 RBC 3.23* 3.16* HGB 9.8* 9.4* HCT 28.5* 28.1* MCV 88.0 88.9 MCH 30.4 29.8 MCHC 34.5 33.6 RDW 14.8* 14.7* PLT 247 279 MPV 7.1* 7.4 CMP: Recent Labs 06/13/198 06/14/19 001 NA 137 135 K 4.0 3.4* CL 104 102 CO2 22 24 BUN 6* 5* CREATININE 0.69 0.62 GLUCOSE 124* 161* CALCIUM 9.5 9.4 PROT 7.2 6.8 LABALBU 4.1 3.7 BILITOT 2.3* 2.2* ALKPHOS 478* 492* AST 471* 539* ALT 676* 642* LIPASE: Recent Labs 06/13/19 0018 06/13/19 1418 06/14/19 0014 LIPASE 1,607* 540* 1,811* PT/INR: Recent Labs 06/13/1917 INR 1.1 Hepatitis B Surface Ag NOT DETECTED Not-Detected NA Final 06/13/2019 2:18 PM [facility] Hep B Core Ab, IgM NOT DETECTED Not-Detected NA Final 06/13/2019 2:18 PM [facility] Hep A IgM NOT DETECTED Not-Detected NA Final 06/13/2019 2:18 PM [facility] Hepatitis C Ab NOT DETECTED MRCP 06/14/19 IMPRESSION: 1. Increase in size within the complex cystic lesion in the uncinate process of the pancreas. This again communicates with the remained pancreatic duct and could represent an IPMN but could also represent walled off necrosis related to prior pancreatitis. There is new biliary dilation and given this and the presence of hyperbilirubinemia, and these findings could be due to mass effect from this lesion; endoscopic evaluation should be strongly considered. 2. Pancreatic and peripancreatic edema suggesting pancreatitis. Mild mural thickening in the descending duodenum which may be due to adjacent inflammatory changes in the pancreas. 3. Mildly dilated main pancreatic duct may be related to chronic pancreatitis. 4. Hepatic steatosis. Report Dictated on --- Final --- Dictated: 06/14/2019 9:55 am Dictating Physician: MD BARBOSA NICHOLAS Signed Date and Time: 06/14/2019 10:14 am Signed by: MD BARBOSA NICHOLAS Transcribed Date and Time: 06/14/2019 10:09 ASSESSMENT AND PLAN Acute pancreatitis - lipase elevated >2200 at outside facility, pain improved Elevated LFTs - LFTs wnl during previous admission 02/03/19 Complex pancreatic cystic lesion in uncinate process of pancreas Daily ETOH use Hx of hypertriglyceridemia PLAN: - MRCP showing enlarging complex cyst in the uncinate process of the pancreas causing obstruction/compression of biliary tree - consult Dr. Harrison for recommendations, will need possible surgical intervention - tolerating CLD, await general surgery recommendations prior to any advancement of diet - hepatitis panel negative, - lipid panel shows improved triglyceride level 187 - trend LFTs, INR - continue supportive cares per primary team [id number] Addendum: Hepatobiliary surgical team evaluated patient and recommended ERCP w/ stent placement and brushings with consideration for EUS given increase in size of lesions. At this time GI service would recommend transfer to or [facility] for evaluation of biliary obstruction with ERCP w/ stent placement as well as EUS w/ FNA for enlarging pancreatic lesion. Discussed at length with patient who is agreeable to transfer. Paged primary team, Dr. Gross to update her on our recommendation. Okay to advance to full liquid diet today. Attending Supervising Physician's Attestation Statement I performed a history and physical examination on the patient and discussed the management with thephysician printing assistant. I reviewed and agree with the findings and plan as documented in her note . * Jaquelin Morgan DTR - 06/14/2019 8:54 AM EST Nutrition rescreen completed. Patient referred to the Dietitian. documented in this encounter Assessments Diagnosis Acute intractable headache, unspecified headache type- Primary Cervical pain (neck) Cervicalgia Diagnosis Eastman's palsy Iron deficiency anemia due to chronic blood loss Iron deficiency anemia secondary to blood loss (chronic) Diagnosis Pancreatic lesion Unspecified disease of pancreas Diagnosis Pancreatitis, recurrent- Primary Chronic pancreatitis Pancreatic lesion Unspecified disease of pancreas Transaminitis Nonspecific elevation of levels of transaminase or lactic acid dehydrogenase (LDH) Advance Directives No Advanced Directives Records FoundDocuments on File Type Date Recorded 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 Advance Directives and Living Will Power of Supervisor Drilling And Shooting Latest Code Status on File Code Status Date Activated Date Inactivated Comments Full Code 03/08/2019 11:05 PM Full Code 02/02/2019 2:01 AM 02/03/2019 3:27 PM Full Code 04/25/2018 3:44 AM 04/26/2018 6:35 PM Full Code 05/20/2017 8:22 PM 05/22/2017 4:34 PM Full Code 12/24/2016 10:12 AM 12/24/2016 6:12 PM Latest Code Status on File Code Status Date Activated Date Inactivated Comments Full Code 06/12/2019 11:56 PM 06/16/2019 11:29 PM Full Code 03/08/2019 11:05 PM 03/09/2019 7:27 PM Documents on File Type Date Recorded 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 Advance Directives and Living Will Power of Supervisor Drilling And Shooting Latest Code Status on File Code Status Date Activated Date Inactivated Comments Full Code 02/02/2019 2:01 AM 02/03/2019 3:27 PM Full Code 04/25/2018 3:44 AM 04/26/2018 6:35 PM Full Code 05/20/2017 8:22 PM 05/22/2017 4:34 PM Full Code 12/24/2016 10:12 AM 12/24/2016 6:12 PM Full Code 11/06/2016 9:00 AM 11/07/2016 11:44 AM Latest Code Status on File Code Status Date Activated Date Inactivated Comments Full Code 06/12/2019 11:56 PM Documents on File Type Date Recorded 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 ACP-Advance Directive ACP-Power of Supervisor Drilling And Shooting Latest Code Status on File Code Status Date Activated Date Inactivated Comments Full Code 11/24/2020 6:19 AM Full Code 06/12/2019 11:56 PM 06/16/2019 11:29 PM Advance Directive Response Recorded Date/ Time Advance Directives No May 01, 2020 10:25am Summary Purpose Family History No Family History Records Found Relationship Condition Age at Onset Recorded Date/[place] mother Malignant neoplasm of breast Unknown father Myocardial infarction Unknown Reason for Referral Status Reason Specialty Diagnoses / Procedures Referre d By Contact Referred To Contact Open Radiology Diagnoses Pancreatic lesion Procedures MRI Abdomen W WO Contrast Evette Perry MD [address] [id number] Chief Complaint Chief Complaint Description Start Date right ankle Revision ankle a rthrodesis, Subtalar joint arthrodesis, Removal of painful and broken hardware, Autologous calcaneal bone graft, right on 10/16/2020 Preliminary chief co mplaint data, not yet signed by the author as of Chief Complaint and Reason for Visit Chief Complaint Admit Date fatty liver February 20, 2025 8:43 am Additional Source Comments Reason for Visit (unrecogniz ed section and content) Reason Comments Headache Reason Comments Facial Droop Reason Comments Abdominal Pain Reason For Visit Description Start Date Follow-up by complaint Preliminary reason f or visit data, not yet signed by the author as of right ankle Revision ankle a rthrodesis, Subtalar joint arthrodesis, Removal of painful and broken hardware, Autologous calcaneal bone graft, right on 10/16/2020 (unrecognized sect ion and content) No Status Records FoundNo Status Records FoundNo Status Records FoundNo Status Records FoundNo Status Records FoundNo Status Records FoundNo Status Records FoundNo Status Records FoundNo Status Records FoundNo Status Records Found INFORMATION SOURCE (unrecogn ized section and content) DATE CREATED AUTHOR 07/06/2019 [facility] DATE CREATED AUTHOR AUTHOR'S ORGANIZ ATION 08/23/2019 [facility] DATE CREATED AUTHOR AUTHOR'S ORGANIZ ATION 07/17/2020 [facility] DATE CREATED AUTHOR AUTHOR'S ORGANIZ ATION 11/26/2020 [facility] DATE CREATED AUTHOR AUTHOR'S ORGANIZ ATION 12/03/2020 [facility] DATE CREATED AUTHOR AUTHOR'S ORGANIZ ATION 02/10/2021 [facility] DATE CREATED AUTHOR AUTHOR'S ORGANIZ ATION 01/28/2024 [facility] ([place]) DATE CREATED AUTHOR AUTHOR'S ORGANIZ ATION 08/31/2024 [facility] DATE CREATED AUTHOR AUTHOR'S ORGANIZ ATION 11/29/2024 [facility] DATE CREATED AUTHOR AUTHOR'S ORGANIZ ATION 05/31/2025 [facility] Ordered Prescriptions (unrec ognized section and content) Prescription Sig Dispensed Refills Start Date End Da te oxyCODONE-acetaminophen (PERCOCET) 5-325 MG per tabletIndications:Alcohol -induced acute pancreatitis without infection or necrosis Take 1 tablet by mouth every 6 hours as needed for Pain for up to 3 days. 12 tablet 0 11/26/2020 11/29/2020 Care Team (unrecognized sect ion and content) Care Team Personnel Name: ALBA TENA DO Position: P4 Physician - Primary Care Med Service: Active Provider Member Role: Primary Care Physician Address: Address: [address] [place] [address] Care Team Related Persons Name: KENNA ADAN Address: [address] [place] [phone] [place] Care Team Personnel Name: ALBA TENA DO Position: P4 Physician - Primary Care Med Service: Active Provider Member Role: Primary Care Physician Address: Address: [address] [place] [phone] [place] Care Team Related Persons Name: KENNA ADAN Address: [place] [address] [facility] [place] [phone] [place] Care Team Personnel Name: ALBA TENA DO Position: P4 Physician - Primary Care Med Service: Active Provider Member Role: Primary Care Physician Address: Address: [address] [place] [id number] [place] [address] Care Team Related Persons Name: KENNA ADAN Address: [address] [place] [phone] [place] Care Team Personnel Name: ALBA TENA DO Position: P4 Physician - Primary Care Med Service: Active Provider Member Role: Primary Care Physician Address: Address: [address] [place] [phone] [place] Care Team Related Persons Name: KENNA ADAN Address: Home [address] [place] [phone] [place] Care Team Personnel Name: ALBA TENA DO Position: P4 Physician - Primary Care Member Role: Primary Care Physician Address: Address: [address] [place] [address] [place] Name: DENICE GUILLEN MD Position: ED Physician Member Role: ED Physician Address: Address: [address] [place] [id number] Care Team Related Persons Name: KENNA ADAN Address: [place] [address] [place] [phone] [place] Care Teams (unrecognized sec tion and content) Lang Interpreter Relationship Specialty Start Date End Date Alba Tena DO [address] [place] [phone] (work) PCP - General 09/09/16 Team Status: Active Member Role/Relationship Status Dates Dr. Alba Tena , DO Primary Care Provider Activ e Team Status: Inactive Member Role/Relationship Status Dates Dr. Alba Tena , DO Primary Care Provider Activ e Start: February 20, 2025 End: February 20, 2025 Dr. Sarkis Alvarez MD Attending Provider Active Start: February 20, 2025 End: February 20, 2025 Dr. Sarkis Alvarez MD Referring Provider Active Start: February 20, 2025 End: February 20, 2025 Goals (unrecognized section and content) Goals may be documented in a n alternate section FOR RECORDS PERTAINING TO PATIENTS WHO ARE OR HAVE BEEN ENROLLED IN A CHEMICAL DEPENDENCY/SUBSTANCEABUSE PROGRAM, SOME INFORMATION MAY BE OMITTED. This clinical summary was aggregated from multiple sources. Caution should be exercised in using it in the provision of clinical care. This summary normalizes information from multiple sources, and as a consequence, information in this document may materially change the coding, format and clinical context of patient data. In addition, data may be omitted in some cases. CLINICAL DECISIONS SHOULD BE BASED ON THE PRIMARY CLINICAL RECORDS. [facility]. provides no warranty or guarantee of the accuracy or completeness of information in this document.
== END | disposition home or self-care (01) ==
LOC: CT 07:25
DX: R55 Syncope and collapse (principal)
CPT/HCPCS: 70450